=== PATIENT | female | born 1950 | race Caucasian/White ===

== ENCOUNTER 2023-07-02 09:28 | Outpatient (CLI) | payer OTHER, SELFPAY ==
--- NOTE | 2023-07-02 09:34 | MM_ITS ---
WS: [id number] BILATERAL 3D TOMOSYNTHESIS DIGITAL SCREENING MAMMOGRAPHY WITH CAD CLINICAL INFORMATION: SCREENING HISTORY: Screening mammogram. No current complaints. COMPARISON: 2021 TECHNIQUE: Bilateral CC and MLO views. FINDINGS: The breasts are composed of heterogeneous fibroglandular density tissue, which can limit the detectio n of small underlying mass lesions. No suspicious mass, asymmetry, calcifications, or architectural d istortion. No evidence of malignancy. Incidental punctate and lucent centered calcifications. Vascula r calcifications. IMPRESSION: MM/[place] [id number] BI-RADS: 2-Benign FOLLOW UP: 1 Year Follow-up Recommend return to annual screening mammography.
== END 2023-07-02 09:29 | disposition home or self-care (01) ==
LOC: RAD 09:28
PROVIDERS: PCP Nurse Practitioner; Visit Provider Nurse Practitioner
DX: Z12.31 Encounter for screening mammogram for malignant neoplasm of breast (principal)
CPT/HCPCS: 77063; 77067

== ENCOUNTER 2023-07-08 08:50 | Outpatient (CLI) | payer OTHER, SELFPAY ==
--- NOTE | 2023-07-08 08:59 | USCV_ITS ---
Marichuy Tejada Age: 72 Gender: F : 1950 Exam Date: 07/08/2023 09:18 Ordering Phys: Rima Townsend Technologist: Exam Location: [facility] [place] Indication: syncope Risk Factors: Previous Vascular Surgery: Right Brachial BP: / Left Brachial BP: / Right Left Velocity (cm/s) Spectral Plaque Velocity (cm/s) Spectral Plaque Syst/Diast Broadening Syst/Diast Broadening 90.40/ 24.30 Prox CCA 82.50 / 18.70 Homo 65.10/ 14.30 Mid CCA 59.95 / 9.85 86.00/ 19.80 Hetro Distal CCA 56.00 / 12.80 Hetro 47.80/ 9.90 Prox ICA 43.20 / 16.70 76.60/ 24.70 Mid ICA 65.80 / 13.80 77.40/ 28.80 Distal ICA 70.70 / 27.50 78.30 ECA 53.00 0.86 ICA/CCA 0.86 Antegrade Vertebral Antegrade 44.70/ 9.30 cm/s 55.00/ 12.80 cm/s Tri Subclavian Tri 52.80 69.70 FINDINGS Comparison: none available. No significant elevation of systolic or diastolic velocities. Diffuse bilateral scattered calcified plaque and intimal thickening throughout the common carotid arteries and extending through the bifurcation. Antegrade vertebral arteries. CONCLUSIONS Bilateral ICA stenosis less than 50%. Bilateral carotid atherosclerotic plaque. Dr. Nancy Moore DO (Electronically Signed) Final Date: 08 July 2023 11:16 S
== END 2023-07-08 08:51 | disposition home or self-care (01) ==
LOC: RAD 08:50
PROVIDERS: PCP Nurse Practitioner; Visit Provider Nurse Practitioner
DX: R55 Syncope and collapse (principal)
CPT/HCPCS: 93880

== ENCOUNTER 2023-07-14 14:36 | Emergency (ER) | payer OTHER, SELFPAY ==
[2023-07-14] VITALS (24 sets, daily range): BP systolic 113–168; BP diastolic 74–111; PULSE 56–79; RESP 16–29; TEMP 37.1; O2SAT 95–100; BMI 25.8
--- NOTE | 2023-07-14 15:23 | ED_ITS ---
HPI - Dizziness General: Chief Complaint: Dizziness Stated Complaint: weakness/dizzy Time Seen by Provider: 07/14/23 14:57 Source: patient Mode of arrival: ambulatory History of Present Illness: HPI Narrative: 72-year-old female presents emergency room complaining of palpitations she has been seen for this previously. She has had an outpatient work-up and recently had a Holter monitor she is still feeling palpitations. She is not on any medications for it at this time time she is having dizziness but that is been an ongoing issue as well and she has been prescribed meclizine for this denies chest pain or shortness of breath no vomiting or diarrhea no recent upper respiratory symptoms. MD elicited complaint: dizziness, lightheadedness and other (Palpitations) Onset (ago): week(s) Severity: mild Description: sense of movement and lightheadedness Exacerbating factors: nothing Relieving factors: nothing Associated symptoms: Reports no associated symptoms and palpitations; Denies change in hearing, chest pain, chills, cough, diaphoresis, ear discharge, ear pressure, fevers/chills, headache(s), malaise, nausea, nasal congestion, rash, short of breath, syncope, tinnitus, vomiting or weakness Associated neuro symptoms: Reports no associated symptoms Review of Systems Const: Denies: fever(s), chills, malaise or diaphoresis ENMT: Denies: ear discharge, change in hearing, tinnitus or nasal congestion Card: Reports: palpitations; Denies: chest pain or syncope Resp: Denies: dyspnea GI: Denies: abdominal pain, nausea or vomiting : Denies: dysuria, urinary frequency or urinary urgency Musc: Denies: neck pain or back pain Skin/Breast: Denies: rash Neuro: Denies: headache(s) Physical Exam Const: COMMON NORMALS: no acute distress GENERAL APPEARANCE: cooperative and comfortable ORIENTATION/CONSCIOUSNESS: Yes awake, Yes oriented to person, Yes oriented to place and Yes oriented to time HENMT: COMMON NORMALS: normocephalic, atraumatic and hearing grossly normal bilaterally HEAD & SCALP: normocephalic and atraumatic Resp: COMMON NORMALS: normal respiratory effort, No retractions, No use of accessory muscles and clear to auscultation bilaterally AUSCULTATION: clear to auscultation bilaterally Cardio: COMMON NORMALS: regular rate, regular rhythm and No murmurs present (Cardio) RATE: regular rate RHYTHM: regular rhythm GI: COMMON NORMALS: Soft to palpation and No hepatosplenomegaly present AUSCULTATION: Yes normoactive bowel sounds PALPATION: Yes Soft to palpation, No Tenderness to palpation present (GI), No Guarding due to palpation present (GI) and Yes No hepatosplenomegaly present Extremity: COMMON NORMALS: normal to inspection, capillary refill normal, no clubbing, cyanosis or edema, no calf tenderness and no pedal edema Neuro: SENSORIUM/ORIENTATION: Yes oriented to person, Yes oriented to place and Yes oriented to time Skin: COMMON NORMALS: no rashes or lesions noted GENERAL SKIN EXAM: no rashes or lesions noted Course Vital Signs: Vital signs: Vital Signs Temperature 98.8 F 07/14/23 14:49 Pulse Rate 73 07/14/23 16:50 Respiratory Rate 18 07/14/23 16:45 Blood Pressure 138/82 07/14/23 16:50 Pulse Oximetry 97 07/14/23 16:45 Oxygen Delivery Me thod Room Air 07/14/23 16:10 MDM - Dizziness Medical Decision Making Multiple PVCs noted. The patient is actually completely asymptomatic of them does not notice them at the time we did it. Remainder of exam unremarkable no focal neurologic deficits and will discharge patient home continue to follow-up through the cardiology clinic and primary care for dizziness and palpitations that she has previously been worked up for no acute findings at this time. Did advise patient to avoid pseudoephedrine or other stimulants as this may worsen some of her symptoms. Differential Diagnosis Likely adverse reaction to drug, orthostatic hypotension, vertebral basilar insufficiency, cerebrovascular accident, acute vestibular neuronitis and transient cerebral ischemia Medical Records I reviewed the patient's medical records. Lab Data I reviewed the patient's lab results. 07/14/23 15:12 07/14/23 15:12 Laboratory Results WBC 9.24 10^3/uL (3.29-11.43) 07/14/23 15:12 RBC 4.93 10^6/uL (3.85-5.65) 07/14/23 15:12 Hgb 13.30 g/dL (11.27-16.99) 07/14/23 15: Hct 42.0 % (36-47) 07/14/23 15:12 MCV 85.2 fl (85-98) 07/14/23 15:12 MCH 27.0 pg (27-33) 07/14/23 15:12 MCHC 31.7 g/dL (30-55) 07/14/23 15:12 RDW 15.2 % (12.1-15.1) H 07/14/23 15:12 Plt Count 355 10^3/cmm (157-399) 07/14/23 15:12 MPV 9.4 fL (7.4-10.4) 07/14/23 15:12 Neut % (Auto) 61.2 % 07/14/23 15:12 Lymph % (Auto) 23.9 % 07/14/23 15:12 [place] % (Auto) 10.5 % 07/14/23 15:12 Eos % (Auto) 2.4 % 07/14/23 15:12 Baso % (Auto) 1.6 % 07/14/23 15:12 Neut # (Auto) 5.65 10^3/uL (1.8-7.7) 07/14/23 15:12 Lymph # (Auto) 2.2 10^3/uL (0.8-4.8) 07/14/23 15:12 [place] # (Auto) 1.0 10^3/uL (0.2-0.9) H 07/14/23 15:12 Eos # (Auto) 0.2 10^3/uL (0.0-0.8) 07/14/23 15:12 Baso # (Auto) 0.2 10^3/uL (0.0-0.1) H 07/14/23 15:12 Nucleated RBC % (auto) 0 % 07/14/23 15:12 Nucleated RBCs # 0.0 /100WBC 07/14/23 15:12 Sodium 138 mmol/L (136-145) 07/14/23 15:12 Potassium 4.0 mmol/L (3.5-5.1) 07/14/23 15:12 Chloride 103 mmol/L (98-107) 07/14/23 15:12 Carbon Dioxide 22 mmol/L (22-29) 07/14/23 15:12 Anion Gap 17.0 (5-19) 07/14/23 15:12 BUN 9 mg/dL (8-23) 07/14/23 15:12 Creatinine 0.6 mg/dL (0.5-0.9) 07/14/23 15:12 GFR Calculation 98.8 mL/min (90-130) 07/14/23 15:12 Glucose 100 mg/dL (65-115) 07/14/23 15:12 Calculated Osmolality 285 mOsm/kg (285-295) 07/14/23 15:12 Calcium 10.1 mg/dL (8.5-10.5) 07/14/23 15:12 Total Bilirubin 0.5 mg/dL (0.15-1.2) 07/14/23 15:12 AST 15 U/L (0-32) 07/14/23 15:12 ALT 9 U/L (0-33) 07/14/23 15:12 Alkaline Phosphatase 94 U/L (35-105) 07/14/23 15:12 Troponin T Baseline < 6 ng/L (0-10) 07/14/23 15:12 Total Protein 7.2 g/dL (6.6-8.7) 07/14/23 15:12 Albumin 4.4 g/dL (3.5-5.2) 07/14/23 15:12 Globulin 2.8 g/dL (1.3-4.6) 07/14/23 15:12 No radiology studies performed this visit Discharge Plan Discharge Patient Disposition: Home Clinical Impression: Frequent PVCs, Dizziness Condition: Stable Prescriptions: Discontinued pseudoephedrine HCl [Pseudoephedrine Plus] 60 mg Tablet 60 mg PO Q6H PRN (Reason: Congestion) No Action cyclobenzaprine 10 mg Tablet 10 mg PO BID PRN (Reason: Spasms) alendronate 70 mg Tablet 70 mg PO Q7D indomethacin 25 mg Capsule 25 mg PO BID Rx Instructions: administer with food or milk acetaminophen 325 mg Tablet 325 mg PO QID PRN (Reason: Pain) ropinirole 1 mg Tablet 1 mg PO BID Aspir-81 81 mg Tablet,Delayed Release (Dr/Ec) 81 mg PO DAILY meclizine 25 mg Tablet 25 mg PO TID PRN (Reason: Dizziness) montelukast 10 mg Tablet 10 mg PO QPM Vitamin B-6 100 mg Tablet 50 mg PO DAILY Flonase 50 mcg/actuation [place],Suspension 1 spray INTRANASAL DAILY Rx Instructions: administer into each nostril Vitamin D3 25 mcg (1,000 unit) Tablet 25 mcg PO DAILY diclofenac sodium 1 % Gel 4 g TOPICAL QID PRN (Reason: osteoarthritis) Rx Instructions: apply to single knee, ankle, foot; for foot includes sole/toes/top of foot Discharge Orders: Discharge ED (Routine); Ordered 07/14/23 Ordered By: Mandeep Atkinson Referrals: Rima Townsend FNP [Primary Care Provider] - Discharge Diet: Usual diet Discharge Activity: Increase activity as tolerated Patient Instructions: Opioid Safety, Pain Management Activity Restrictions/Additional Instructions: Thank you for choosing [facility] for your healthcare needs today. Please realize this is an emergency room and that we are providing you with a medical screening exam and this may not be complete and all inclusive of all the testing and or work up that you may need to determine your ailment or severity of your illness. It is very important that you follow up as instructed or that you return to the Emergency Department should you have concerns or if your condition changes or worsens in any way. Follow-up with cardiology as previously scheduled recommend you avoid pseudoephedrine or any other decongestants or stimulants. These medications will increase the frequency of the irregular heartbeats. 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
--- NOTE | 2023-07-14 15:23 | ECG_ITS ---
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 Measurements Intervals [place] Rate: 66 P: 29 [place]: 164 QRS: 41 QRSD: 93 T: 61 QT: 424 QTc: 446 Interpretive Statements SINUS RHYTHM No previous ECG available for comparison Electronically Signed On 07-16-2023 14:08:23 RECREATION ATTENDANT by Patrice Taylor M.D. [id number]
[2023-07-14 15:28] LABS: Basophils # 0.2 10^3/uL (0.0-0.1); Basophils % 1.6 %; Eosinophils # 0.2 10^3/uL (0.0-0.8); Eosinophils % 2.4 %; Lymphocytes # 2.2 10^3/uL (0.8-4.8); Lymphocytes % 23.9 %; Mean Corpuscular HGB Conc 31.7 g/dL (30-55); Mean Corpuscular Volume 85.2 fl (85-98); Mean Platelet Volume 9.4 fL (7.4-10.4); Monocytes % 10.5 %; Neutrophils # 5.65 10^3/uL (1.8-7.7); Neutrophils % 61.2 %; Nucleated Red Blood Cells % 0 %; Platelet Count 355 10^3/cmm (157-399); Red Blood Count 4.93 10^6/uL (3.85-5.65); Red Cell Distribution Width 15.2 % (12.1-15.1); White Blood Count 9.24 10^3/uL (3.29-11.43)
[2023-07-14 15:41] LABS: Troponin(5th) Baseline < 6 ng/L (0-10)
[2023-07-14 15:42] LABS: Alanine Aminotransferase 9 U/L (0-33); Albumin Level 4.4 g/dL (3.5-5.2); Alkaline Phosphatase 94 U/L (35-105); Aspartate Amino Transferase 15 U/L (0-32); Blood Urea Nitrogen 9 mg/dL (8-23); Calcium 10.1 mg/dL (8.5-10.5); Carbon Dioxide 22 mmol/L (22-29); Chloride 103 mmol/L (98-107); Globulin 2.8 g/dL (1.3-4.6); Glomerular Filtration Rate 98.8 mL/min (90-130); Glucose 100 mg/dL (65-115); Osmolality Calculated 285 mOsm/kg (285-295); Sodium 138 mmol/L (136-145); Total Bilirubin 0.5 mg/dL (0.15-1.2); Total Protein 7.2 g/dL (6.6-8.7)
== END 2023-07-14 16:55 | disposition home or self-care (01) ==
PROVIDERS: Emergency Provider Family Medicine; PCP Nurse Practitioner
DX: R42 Dizziness and giddiness (principal); I49.3 Ventricular premature depolarization; Z79.82 Long term (current) use of aspirin
CPT/HCPCS: 36415; 80053; 84484; 85025; 93005; 99284

== ENCOUNTER 2023-07-30 06:00 | Outpatient (RCR) | payer OTHER, SELFPAY | END 2023-08-29 23:59 | disposition home or self-care (01) | LOC: SPT 06:00 | PROVIDERS: PCP Nurse Practitioner; Visit Provider Nurse Practitioner | DX: M25.512 Pain in left shoulder (principal) | CPT/HCPCS: 97110; 97140; 97161 ==

== ENCOUNTER → 2023-08-05 10:09 | Outpatient (BNVA) | payer OTHER, SELFPAY | PROVIDERS: PCP Nurse Practitioner; Referring Provider Nurse Practitioner; Visit Provider Internal Medicine Cardiovascular Disease | DX: R55 Syncope and collapse (principal) | CPT/HCPCS: 99203 ==

== ENCOUNTER 2023-08-11 09:54 | Outpatient (CLI) | payer OTHER, SELFPAY ==
--- NOTE | 2023-08-11 10:15 | USCV_ITS ---
Marichuy Tejada Age: 73 Gender: F : 1950 Exam Date: 08/11/2023 10:25 Ordering Phys: Patrice Taylor MD (omcnledy/january) Technologist: JUAN PABLO Exam Location: [facility] – [place] Indication: syncope BP: 136 / 82 HR: 73 Rhythm: Sinus Technical Quality: Adequate MEASUREMENTS (Male / Female) Normal Values 2D ECHO LVOT Diameter 2.0 cm LV Ejection Fraction MOD 2C 57.3 % LV Ejection Fraction 2C AL 56.4 % LA Diameter 3.0 cm LA Width 3.5 cm LA Height 3.8 cm RA Width 2.8 cm RA Height 4.5 cm Aorta at Sinotubular Diameter 2.2 cm IVC Diameter 1.6 cm M-MODE Aortic Annulus Diameter 2.9 cm LA Ao Ratio MM 0.9 MV E Point Septal Separation 0.6 cm DOPPLER AV Peak Velocity 135.0 cm/s LVOT Peak Velocity 98.0 cm/s AV Area Cont Eq vti 2.3 cm squared AV Area Cont Eq pk 2.3 cm squared MV Peak Velocity 113.0 cm/s MV Area PHT 2.7 cm squared Mitral E to A Ratio 0.5 MV E' Velocity 28.5 cm/s Mitral E to MV E' Ratio 6.8 Mitral E to LV E' Lateral Ratio 7.2 Mitral E to LV E' Septal Ratio 6.5 TR Peak Velocity 162.2 cm/s TR Peak Gradient 10.5 mmHg TR Mean Velocity 135.1 cm/s TR Mean Gradient 7.6 mmHg TR Velocity Time Integral 37.7 cm TV Peak E Velocity 44.0 cm/s Right Atrial Pressure 3.0 mmHg Pulmonary Artery Systolic Pressu 13.5 mmHg PV Peak Velocity 106.0 cm/s RV Acceleration Time 0.1 s RV Ejection Time 0.3 s RV AcT/ET 0.4 FINDINGS Left Ventricle Normal left ventricular size, systolic function and wall thickness, with no regional wall motion abnormalities. Grade I/IV diastolic dysfunction (abnormal relaxation filling pattern), normal to mildly elevated filling pressures. Left ventricular ejection fraction is estimated at 60 %. Right Ventricle Normal right ventricular size and systolic function. Normal right ventricular systolic pressure. Right Atrium The right atrium is normal in size. Left Atrium The left atrium is normal in size. Mitral Valve Structurally normal mitral valve without significant stenosis or prolapse. There is no mitral regurgitation. Aortic Valve Structurally normal aortic valve without significant sclerosis or stenosis. There is no aortic regurgitation. Tricuspid Valve Structurally normal tricuspid valve without significant stenosis or regurgitation. Pulmonary artery systolic pressure is normal. Pulmonic Valve Pulmonic valve not well visualized. Pericardium Normal pericardium without effusion. Aorta Normal ascending aorta dimension. IVC The inferior vena cava appears normal. CONCLUSIONS Normal left ventricular size, systolic function and wall thickness, with no regional wall motion abnormalities. Grade I/IV diastolic dysfunction (abnormal relaxation filling pattern), normal to mildly elevated filling pressures. Left ventricular ejection fraction is estimated at 60 %. There are no prior echocardiogram studies to compare. Dr. Patrice Taylor MD (Electronically Signed) Final Date: 12 August 2023 10:29 S
== END 2023-08-11 09:55 | disposition home or self-care (01) ==
LOC: RAD 09:54
PROVIDERS: PCP Nurse Practitioner; Visit Provider Internal Medicine Cardiovascular Disease
DX: R55 Syncope and collapse (principal); I51.89 Other ill-defined heart diseases
CPT/HCPCS: 93306

== ENCOUNTER 2023-08-30 06:00 | Outpatient (RCR) | payer OTHER, SELFPAY | END 2023-09-29 23:59 | disposition home or self-care (01) | LOC: SPT 06:00 | PROVIDERS: PCP Nurse Practitioner; Visit Provider Nurse Practitioner | DX: M25.512 Pain in left shoulder (principal) | CPT/HCPCS: 97110; 97140 ==

== ENCOUNTER → 2023-09-23 14:59 | Outpatient (BNVA) | payer OTHER, SELFPAY | PROVIDERS: PCP Nurse Practitioner; Visit Provider Nurse Practitioner Family | DX: L57.0 Actinic keratosis; L82.1 Other seborrheic keratosis; L82.0 Inflamed seborrheic keratosis; S60.921A Unspecified superficial injury of right hand, initial encounter; L57.8 Other skin changes due to chronic exposure to nonionizing radiation; L85.3 Xerosis cutis; D22.5 Melanocytic nevi of trunk; D48.5 Neoplasm of uncertain behavior of skin; Z80.8 Family history of malignant neoplasm of other organs or systems; X58.XXXA Exposure to other specified factors, initial encounter | CPT/HCPCS: 11102; 17000; 17110; 99203 ==

== ENCOUNTER 2023-09-30 06:00 | Outpatient (RCR) | payer OTHER, SELFPAY | END 2023-10-28 23:59 | disposition home or self-care (01) | LOC: SPT 06:00 | PROVIDERS: PCP Nurse Practitioner; Visit Provider Nurse Practitioner | DX: M25.512 Pain in left shoulder (principal) | CPT/HCPCS: 97110 ==

== ENCOUNTER 2023-10-29 06:00 | Outpatient (RCR) | payer OTHER, SELFPAY | END 2023-11-22 23:59 | disposition home or self-care (01) | LOC: SPT 06:00 | PROVIDERS: PCP Nurse Practitioner; Visit Provider Nurse Practitioner | DX: M25.512 Pain in left shoulder (principal) | CPT/HCPCS: 97110 ==

== ENCOUNTER 2024-04-05 14:20 | Outpatient (CLI) | payer OTHER, SELFPAY ==
--- NOTE | 2024-04-05 14:22 | CT_ITS ---
WS: [id number] CT chest w con* [id number] HISTORY: HX OF LUNG NODULE TECHNIQUE: Axial imaging performed through the thorax. Coronal and sagittal reformats are submitted. All CT scans at [facility] use at least one of these dose optimization techniques: automated exposure control; mA and/or kV adjustment per patient size (includes targeted exams where dose is mat ched to clinical indication); or iterative reconstruction. CONTRAST: Omnipaque 350; 100 mL IV. DLP: 281.35 mGy.cm COMPARISON: None available. Lungs and central airway: Mild pulmonary hyperexpansion. There are a few small pulmonary cysts in the upper lung balderrama which may be paraseptal emphysematous changes. No pulmonary mass, pneumonia or nod ule. No endobronchial lesions. Pleura: Normal. No pleural effusion. Heart and pericardium: Normal size heart with no pericardial effusion. Mediastinum and luz maria: No adenopathy. Vessels: Mild atherosclerosis aorta. Normal size pulmonary artery. LEFT vertebral artery arises from the arch. Chest wall and lower neck: No soft tissue masses. Upper abdomen: No adrenal mass. Visualized liver is negative. Osseous structures: Mild increase in thoracic kyphosis. Moderate thoracic spondylosis. No destructive bone lesion. CT/CT chest w con* [id number] IMPRESSION: 1. No pulmonary mass or nodule identified. 2. Mild atherosclerosis aorta. 3. Mild pulmonary hyperexpansion.
[2024-04-05 15:10] LABS: Blood Urea Nitrogen 9 mg/dL (8-23)
[2024-04-05] MEDS: iohexol 350 mg/mL 500 mL Btl (per mL) IV (15:14)
== END 2024-04-05 14:21 | disposition home or self-care (01) ==
LOC: RAD 14:20
PROVIDERS: Radiology Neuroradiology; PCP Nurse Practitioner; Visit Provider Nurse Practitioner
DX: R91.1 Solitary pulmonary nodule (principal); I70.0 Atherosclerosis of aorta; J98.4 Other disorders of lung; M40.294 Other kyphosis, thoracic region; M47.894 Other spondylosis, thoracic region
CPT/HCPCS: 71260; 82565; 84520; Q9967

== ENCOUNTER 2024-05-06 07:22 | Emergency (ER) | payer OTHER, SELFPAY ==
[2024-05-06 07:29] VITALS: BP 128/87; PULSE 66; RESP 14; TEMP 36.5; O2SAT 92; BMI 27.3
--- NOTE | 2024-05-06 07:34 | ECG_ITS ---
[facility] Test Date: 2024-05-06 Pat Name: Marichuy Tejada Department: Room: Gender: Female Outsewer: : 1950 Requested By: Mandeep Packer Order Number: [id number] Reading MD: MIHAI LOVE Measurements Intervals Egan Rate: 64 P: 26 AL: 162 QRS: 4 QRSD: 90 T: 61 QT: 418 QTc: 433 Interpretive Statements SINUS RHYTHM POSSIBLE LEFT ATRIAL ENLARGEMENT [-0.1mV P-WAVE IN V1/V2] Compared to ECG 07/14/2023 15:23:29 No significant changes Electronically Signed On 05-07-2024 18:52:22 CDT by MIHAI LOVE [email or web address] ([email or web address] [id number] f
--- NOTE | 2024-05-06 07:34 | XRR_ITS ---
PROCEDURE INFORMATION: Exam: XR Chest Exam date and time: 05/06/2024 7:46 AM Age: 73 years old Clinical indication: Cough and dyspnea; Additional info: Dyspnea/cough TECHNIQUE: Imaging protocol: Radiologic exam of the chest. Views: 1 view. COMPARISON: CT chest w con* [id number] 04/05/2024 3:10 PM FINDINGS: Lungs: Unremarkable. No consolidation. Pleural spaces: Unremarkable. No pleural effusion. No pneumothorax. Heart/Mediastinum: Unremarkable. No cardiomegaly. Bones/joints: Unremarkable. XR/XR chest 1V portable [id number] IMPRESSION: No acute findings.
[2024-05-06 07:52] LABS: Basophils # 0.1 10^3/uL (0.0-0.1); Basophils % 1.5 %; Eosinophils # 0.2 10^3/uL (0.0-0.8); Eosinophils % 3.9 %; Hematocrit 44.9 % (36-47); Lymphocytes # 1.3 10^3/uL (0.8-4.8); Lymphocytes % 27.4 %; Mean Corpuscular HGB Conc 33.6 g/dL (30-55); Mean Corpuscular Hemoglobin 31.1 pg (27-33); Mean Corpuscular Volume 92.6 fl (85-98); Monocytes # 0.8 10^3/uL (0.2-0.9); Monocytes % 17.4 %; Neutrophils # 2.35 10^3/uL (1.8-7.7); Neutrophils % 48.8 %; Nucleated Red Blood Cells % 0 %; Platelet Count 191 10^3/cmm (157-399); Red Blood Count 4.85 10^6/uL (3.85-5.65); Red Cell Distribution Width 12.8 % (12.1-15.1); White Blood Count 4.82 10^3/uL (3.29-11.43)
[2024-05-06 08:13] LABS: Alanine Aminotransferase 11 U/L (0-33); Albumin Level 4.2 g/dL (3.5-5.2); Alkaline Phosphatase 80 U/L (35-105); Anion Gap 13.8 (5-19); Aspartate Amino Transferase 17 U/L (0-32); Blood Urea Nitrogen 9 mg/dL (8-23); Calcium 9.3 mg/dL (8.5-10.5); Carbon Dioxide 25 mmol/L (22-29); Chloride 106 mmol/L (98-107); Globulin 2.5 g/dL (1.3-4.6); Glucose 108 mg/dL (65-115); Osmolality Calculated 291 mOsm/kg (285-295); Potassium 3.8 mmol/L (3.5-5.1); Sodium 141 mmol/L (136-145); Total Bilirubin 0.4 mg/dL (0.15-1.2); Total Protein 6.7 g/dL (6.6-8.7)
--- NOTE | 2024-05-06 08:17 | ED_ITS ---
HPI - Weakness 2 General: Chief complaint: Weakness Stated complaint: body pain/NV Time Seen by Provider: 05/06/24 07:32 History of Present Illness: 73-year-old female presents to the emerg ency room with complaint of what she describes as generalized body pain. Talk to removal to get her to focus a little bit more. Mid and lower back pain that radiates into her upper thighs. She denies any weakness in the lower extremities. She does relate she has chronic pain and this seems worse the last couple of days. This episode today was enough to make her nauseous and mildly dizzy. She denies any fever sweats or chills she has had some cough that has been nonproductive. No headache no diarrhea no chest pain Associated symptoms: Denies chest pain, chills, dysuria or fever(s) Review of Systems 2 Const: Denies: fever(s) or chills Card: Denies: chest pain Resp: Denies: dyspnea GI: Denies: abdominal pain : Denies: dysuria, urinary frequency or urinary urgency Musc: Reports: back pain and extremity pain; Denies: neck pain Skin/Breast: Denies: rash PFSH ED 2 PFSH: Medical History Syncope Family History Father No problems noted. Social History Smoking and tobacco/nicotine status: former use of tobacco/nicotine Alcohol intake: current Alcohol intake frequency: few times a month Substance/Drug Use: never Physical Exam 2 Const: COMMON NORMALS: no acute distress GENERAL APPEARANCE: cooperative and comfortable ORIENTATION/CONSCIOUSNESS: Yes awake, Yes oriented to person, Yes oriented to place and Yes oriented to time HENMT: COMMON NORMALS: normocephalic, atraumatic and hearing grossly normal bilaterally HEAD & SCALP: normocephalic and atraumatic Resp: COMMON NORMALS: normal respiratory effort, No retractions, No use of accessory muscles and clear to auscultation bilaterally AUSCULTATION: clear to auscultation bilaterally Cardio: COMMON NORMALS: regular rate, regular rhythm and No murmurs present (Cardio) RATE: regular rate RHYTHM: regular rhythm GI: COMMON NORMALS: Soft to palpation and No hepatosplenomegaly present A USCULTATION: Yes normoactive bowel sounds PALPATION: Yes Soft to palpation, No Tenderness to palpation present (GI), No Guarding due to palpation present (GI) and Yes No hepatosplenomegaly present Extremity: COMMON NORMALS: normal to inspection, capillary refill normal, no clubbing, cyanosis or edema, no calf tenderness and no pedal edema Neuro: SENSORIUM/ORIENTATION: Yes oriented to person, Yes oriented to place and Yes oriented to time Skin: COMMON NORMALS: no rashes or lesions noted GENERAL SKIN EXAM: no rashes or lesions noted Course 2 Vital Signs: Vital signs: Vital Signs Temperature 97.7 F 05/06/24 07:29 Pulse Rate 63 05/06/24 10:32 Respiratory Rate 21 H 05/06/24 10:32 Blood Pressure 124/78 05/06/24 10:32 Pulse Oximetry 97 05/06/24 10:32 Oxygen Delivery Me thod Room Air 05/06/24 07:29 MDM - Weakness Medical Decision Making Labs and imaging reviewed. CMP normal no leukocytosis. No cystitis. Flu coronavirus RSV are all negative. Vital signs otherwise unremarkable. She is not having any specific chest pain associated with this. Initial EKG showed normal sinus rhythm without significant changes. Medical Records I reviewed the patient's medical records. Lab Data I reviewed the patient's lab results. 05/06/24 07:45 05/06/24 07:45 Radiology Impressions Chest X-Ray 05/06/24 07:34 IMPRESSION: No acute findings. Laboratory Results WBC 4.82 10^3/uL (3.29-11.43) 05/06/24 07:45 RBC 4.85 10^6/uL (3.85-5.65) 05/06/24 07:45 Hgb 15.10 g/dL (11.27-16.99) 05/06/24 07:45 Hct 44.9 % (36-47) 05/06/24 07:45 MCV 92.6 fl (85-98) 05/06/24 07:45 MCH 31.1 pg (27-33) 05/06/24 07:45 MCHC 33.6 g/dL (30-55) 05/06/24 07:45 RDW 12.8 % (12.1-15.1) 05/06/24 07:45 Plt Count 191 10^3/cmm (157-399) 05/06/24 07:45 MPV 9.0 fL (7.4-10.4) 05/06/24 07:45 Neut % (Auto) 48.8 % 05/06/24 07:45 Lymph % (Auto) 27.4 % 05/06/24 07:45 Kendall % (Auto) 17.4 % 05/06/24 07:45 Eos % (Auto) 3.9 % 05/06/24 07:45 Baso % (Auto) 1.5 % 05/06/24 07:45 Neut # (Auto) 2.35 10^3/uL (1.8-7.7) 05/06/24 07:45 Lymph # (Auto) 1.3 10^3/uL (0.8-4.8) 05/06/24 07:45 Kendall # (Auto) 0.8 10^3/uL (0.2-0.9) 05/06/24 07:45 Eos # (Auto) 0.2 10^3/uL (0.0-0.8) 05/06/24 07:45 Baso # (Auto) 0.1 10^3/uL (0.0-0.1) 05/06/24 07:45 Nucleated RBC % (auto) 0 % 05/06/24 07:45 Nucleated RBCs # 0.0 /100WBC 05/06/24 07:45 Sodium 141 mmol/L (136-145) 05/06/24 07:45 Potassium 3.8 mmol/L (3.5-5.1) 05/06/24 07:45 Chloride 106 mmol/L (98-107) 05/06/24 07:45 Carbon Dioxide 25 mmol/L (22-29) 05/06/24 07:45 Anion Gap 13.8 (5-19) 05/06/24 07:45 BUN 9 mg/dL (8-23) 05/06/24 07:45 Creatinine 0.5 mg/dL (0.5-0.9) 05/06/24 07:45 GFR Calculation Not Reportable 05/06/24 07:45 Glucose 108 mg/dL (65-115) 05/06/24 07:45 Calculated Osmolality 291 mOsm/kg (285-295) 05/06/24 07:45 Calcium 9.3 mg/dL (8.5-10.5) 05/06/24 07:45 Total Bilirubin 0.4 mg/dL (0.15-1.2) 05/06/24 07:45 AST 17 U/L (0-32) 05/06/24 07:45 ALT 11 U/L (0-33) 05/06/24 07:45 Alkaline Phosphatase 80 U/L (35-105) 05/06/24 07:45 Total Protein 6.7 g/dL (6.6-8.7) 05/06/24 07:45 Albumin 4.2 g/dL (3.5-5.2) 05/06/24 07:45 Globulin 2.5 g/dL (1.3-4.6) 05/06/24 07:45 Urine Color Yellow (Yellow) 05/06/24 09:10 Urine Appearance Clear (CLEAR) 05/06/24 09:10 Urine pH 5.5 (5-7) 05/06/24 09:10 Ur Specific [place] 1.021 (1.005-1.030) 05/06/24 09:10 Urine Protein Negative (Negative) 05/06/24 09:10 Urine Glucose (UA) Negative (Normal) 05/06/24 09:10 Urine Ketones Trace (Negative) 05/06/24 09:10 Urine Blood Negative (Negative) 05/06/24 09:10 Urine Nitrate Negative (Negative) 05/06/24 09:10 Urine Bilirubin Negative (Negative) 05/06/24 09:10 Urine Urobilinogen 1.0 mg/dL (Negative) 05/06/24 09:10 Ur Leukocyte Esterase Negative (Negative) 05/06/24 09:10 Urine RBC 0-2 /hpf (0-2) 05/06/24 09:10 Urine WBC 0-5 /hpf (0-5) 05/06/24 09:10 Ur Squamous Epith Cells 0-5 /hpf (0-5) 05/06/24 09:10 Amorphous Sediment Not Reportable 05/06/24 09:10 Urine Bacteria None seen /hpf (NONE) 05/06/24 09:10 Hyaline Casts 0.81 /lpf 05/06/24 09:10 Coronavirus (PCR) Negative (Negative) 05/06/24 07:45 Influenza A (PCR) Negative (Negative) 05/06/24 07:45 Influenza Type B (PCR) Negative (Negative) 05/06/24 07:45 RSV (PCR) Negative (Negative) 05/06/24 07:45 All radiology interpretation(s) finalized by discharge EKG Data EKG 1: Interpretation: Normal sinus rhythm rate of [address] changes noted MT interval 162 QTc 433. Normal axis. Discharge Plan Discharge Patient Disposition: Home Clinical Impression: Back pain without radiation Condition: Stable Prescriptions: New Medrol (Kurt) 4 mg tablets,dose pack See Rx Instructions .ROUTE .COMPLEX Qty: 21 0RF Rx Instructions: orally per package directions No Action cyclobenzaprine 10 mg Tablet 10 mg PO BID PRN (Reason: Spasms) alendronate 70 mg Tablet 70 mg PO Q7D indomethacin 25 mg Capsule 25 mg PO BID Rx Instructions: administer with food or milk acetaminophen 325 mg Tablet 325 mg PO QID PRN (Reason: Pain) ropinirole 1 mg Tablet 1 mg PO BID Aspir-81 81 mg Tablet,Delayed Release (Dr/Ec) 81 mg PO DAILY meclizine 25 mg Tablet 25 mg PO TID PRN (Reason: Dizziness) montelukast 10 mg Tablet 10 mg PO QPM Vitamin B-6 100 mg Tablet 50 mg PO DAILY Vitamin D3 25 mcg (1,000 unit) Tablet 25 mcg PO DAILY diclofenac sodium 1 % Gel 4 g TOPICAL QID PRN (Reason: osteoarthritis) Rx Instructions: apply to single knee, ankle, foot; for foot includes sole/toes/top of foot Discharge Orders: Discharge ED (Routine); Ordered 05/06/24 Ordered By: Mandeep Atkinson Referrals: Rima Townsend FNP [Primary Care Provider] - Discharge Diet: Usual diet Discharge Activity: Increase activity as tolerated Patient Instructions: Opioid Safety, Pain Management Activity Restrictions/Additional Instructions: Thank you for choosing [facility] for your healthcare needs today. It is very important that you follow up as instructed or that you return to the Emergency Department should you have concerns or if your condition changes or worsens in any way. Initial emergency room complaining of generalized pain and aches. Flu COVID and RSV were negative EKG was normal all of your lab work done today was normal as well. Your exam did not show any signs of stroke or nerve impingement at this time. Continue your current medications will have you take a course of steroids tapering over a week. 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 Fwd Related Data Home Medications Medication Instructions Recorded Confirmed acetaminophen 325 mg tablet 325 mg PO QID PRN Pain 07/14/23 08/05/23 alendronate 70 mg tablet 70 mg PO Q7D 07/14/23 08/05/23 aspirin 81 mg tablet,delayed 81 mg PO DAILY 07/14/23 08/05/23 release cholecalciferol (vitamin D3) 25 25 mcg PO DAILY 07/14/23 08/05/23 mcg (1,000 unit) tablet (Vitamin D3) cyclobenzaprine 10 mg tablet 10 mg PO BID PRN Spasms 07/14/23 08/05/23 diclofenac sodium 1 % topical gel 4 g topical QID PRN osteoarthritis 07/14/23 08/05/23 indomethacin 25 mg capsule 25 mg PO BID 07/14/23 08/05/23 meclizine 25 mg tablet 25 mg PO TID PRN Dizziness 07/14/23 08/05/23 montelukast 10 mg tablet 10 mg PO QPM 07/14/23 08/05/23 pyridoxine (vitamin B6) 100 mg 50 mg PO DAILY 07/14/23 08/05/23 tablet (Vitamin B-6) ropinirole 1 mg tablet 1 mg PO BID 07/14/23 08/05/23 Previous Rx's Medication Instructions Recorded methylprednisolone 4 mg tablets in See Rx Instructions PO .COMPLEX 05/06/24 a dose pack (Medrol (Kurt)) #21 ea Allergies Allergy/AdvReac Type Severity Reaction Status Date / Time albuterol Allergy ADR/ALGY-Pa Verified 05/06/24 07:39 lpitations oxycodone Allergy ADR-Itching Verified 05/06/24 07:39
[2024-05-06] MEDS: ketorolac 30 mg/mL INJ IVP (08:25)
[2024-05-06 08:38] VITALS: BP 123/86; PULSE 66; RESP 17; O2SAT 90
[2024-05-06 09:05] LABS: Covid PCR NEGATIVE (Negative); Influenza A NEGATIVE (Negative); Influenza B NEGATIVE (Negative); Respiratory Syncytial Virus Ce NEGATIVE (Negative)
[2024-05-06 09:26] LABS: Charge for UA Resulting for Rev
[2024-05-06 09:29] LABS: Bilirubin Urine Negative (Negative); Blood Urine Negative (Negative); Glucose Urine UA Negative (Normal); Ketones Urine Trace (Negative); Leukocyte Esterase Urine Negative (Negative); Nitrate Urine Negative (Negative); Protein Urine Negative (Negative); Specific Gravity, Urine 1.021 (1.005-1.030); Urine Appearance Clear (CLEAR); Urine Color Yellow (Yellow); pH Urine 5.5 (5-7)
[2024-05-06 09:34] LABS: Bacteria Urine None Seen /hpf; Hyaline Casts Urine 0.81 /lpf; RBC Urine 0-2 /hpf (0-2); Squamous Epithelial Cell Urine 0-5 /hpf (0-5); WBC Urine 0-5 /hpf (0-5)
[2024-05-06 10:32] VITALS: BP 124/78; PULSE 63; RESP 21; O2SAT 97
== END 2024-05-06 10:30 | disposition home or self-care (01) ==
PROVIDERS: Emergency Provider Family Medicine; PCP Nurse Practitioner
DX: M54.50 Low back pain, unspecified (principal); Z79.82 Long term (current) use of aspirin; Z87.891 Personal history of nicotine dependence; M54.6 Pain in thoracic spine
CPT/HCPCS: 0241U; 71045; 80053; 81003; 81015; 85025; 93005; 96374; 99285; J1885

== ENCOUNTER 2024-05-30 15:15 | Outpatient (CLI) | payer OTHER, SELFPAY ==
--- NOTE | 2024-05-30 15:19 | MR_ITS ---
WS: [id number] MRI HEAD WITH CONTRAST TECHNIQUE: Sagittal T1, T2 axial, T2 axial FLAIR, axial susceptibility weighted imaging, axial diffus ion weighted images, and coronal T2 images were obtained. Pre and post-T1 axial and post T1 coronal i mages. ADC and FSPGR images. CLINICAL INFORMATION: NEW ONSET OF TREMORS COMPARISON: None. FINDINGS: No evidence of restricted diffusion to suggest acute ischemia. Ventricular system and basal cisterns are patent. Mild small vessel changes. Moderate parenchymal volume loss. Normal posterior fossa. Norm al vascular flow voids at the skull base. No extra-axial fluid collections. No evidence of mass or ma ss effect. Paranasal sinuses and mastoid air cells are well aerated. Normal posterior nasopharynx. No hemosiderin on the susceptibly weighted images. Normal optic chiasm and pituitary infundibulum. Mild symmetric atrophy temporal lobes and hippocampal formations. Normal optic chiasm and pituitary infundibulum. No abnormal gadolinium enhancement. Norm al dural venous sinuses. MR/MR head wo/w con [id number] IMPRESSION: 1. No evidence of restricted diffusion to suggest acute ischemia. 2. Mild small vessel changes with moderate parenchymal volume loss. 3. Mild symmetric atrophy temporal lobes and hippocampal formations. 4. No abnormal gadolinium enhancement. 5. No hemosiderin on the susceptibly weighted images. 6. No other acute findings.
[2024-05-30] MEDS: gadobenate dimeglumine 20 mL vial IV (15:57)
== END 2024-05-30 15:16 | disposition home or self-care (01) ==
PROVIDERS: PCP Nurse Practitioner; Visit Provider Nurse Practitioner
DX: G31.89 Other specified degenerative diseases of nervous system (principal)
CPT/HCPCS: 70553

== ENCOUNTER → 2024-11-03 10:25 | Outpatient (BNVA) | payer OTHER, SELFPAY | PROVIDERS: PCP Nurse Practitioner; Visit Provider Nurse Practitioner Family | DX: L57.8 Other skin changes due to chronic exposure to nonionizing radiation (principal); L85.3 Xerosis cutis; D22.5 Melanocytic nevi of trunk; L81.4 Other melanin hyperpigmentation; L82.1 Other seborrheic keratosis; Z80.8 Family history of malignant neoplasm of other organs or systems; L57.0 Actinic keratosis | CPT/HCPCS: 17000; 99213 ==

== ENCOUNTER → 2024-11-13 14:00 | Outpatient (BNVA) | payer OTHER, SELFPAY | PROVIDERS: PCP Nurse Practitioner; Visit Provider Orthopaedic Surgery | DX: M19.012 Primary osteoarthritis, left shoulder (principal); M25.512 Pain in left shoulder | CPT/HCPCS: 73030; 99204 ==

== ENCOUNTER 2024-11-17 10:47 | Outpatient (CLI) | payer OTHER, SELFPAY ==
--- NOTE | 2024-11-17 10:50 | MRR_ITS ---
PROCEDURE INFORMATION: Exam: MR Left Upper Extremity Joint Without Contrast; Shoulder Exam date and time: 11/17/2024 10:59 AM Age: 74 years old Clinical indication: Left; Lt shoulder pain. Told prior tear by [facility] per PT. Was in PT got better. Re-injured moving furniture. TECHNIQUE: Imaging protocol: Magnetic resonance imaging of the left upper extremity without contrast. Exam focused on the shoulder. COMPARISON: CR XR shoulder LT min 2V* [id number] 11/13/2024 2:01 PM FINDINGS: Bones/joints: Acromioclavicular arthrosis. Near-complete loss of the glenoid chondral surface. Mild glenohumeral joint effusion. Rotator interval: Decreased amount of fat within the rotator interval on the sagittal series with what appears to be edema. Questionable capsular thickening and pericapsular edema. Glenoid labrum: Diffusely globular and heterogeneous appearing labrum without fluid bright signal to suggest acute tear. Bursae: Elevated amount of fluid within the subacromial subdeltoid bursa. Supraspinatus tendon: Partial-thickness, partial width tear of the supraspinatus tendon as it inserts upon the humeral head, the tear appears to be near-complete, however no significant retraction. Infraspinatus tendon: Unremarkable. No evidence of tear. Subscapularis tendon: Unremarkable. No evidence of tear. Teres minor tendon: Unremarkable. No evidence of tear. Tendon of biceps brachii: Intra-articular biceps tendinosis. Glenohumeral ligaments: Unremarkable. Soft tissues: Perhaps mild pericapsular edema. MR/MR shoulder LT wo con* [id number] IMPRESSION: 1. Near-complete tear of the supraspinatus tendon at the humeral insertion. No significant retraction, mild extension into the interstitial bands. 2. Diffusely macerated labrum without fluid bright signal to suggest acute tear. 3. Severe acromioclavicular and glenohumeral arthritis with superimposed glenohumeral effusion. 4. Capsular findings suggest adhesive capsulitis, correlate clinically. 5. Intra-articular biceps tendinosis without tear.
== END 2024-11-17 10:48 | disposition home or self-care (01) ==
LOC: RAD 10:47
PROVIDERS: PCP Nurse Practitioner; Visit Provider Nurse Practitioner
DX: M75.102 Unspecified rotator cuff tear or rupture of left shoulder, not specified as traumatic (principal); R93.6 Abnormal findings on diagnostic imaging of limbs; M19.012 Primary osteoarthritis, left shoulder; M67.813 Other specified disorders of tendon, right shoulder; X50.9XXA Other and unspecified overexertion or strenuous movements or postures, initial encounter
CPT/HCPCS: 73221

== ENCOUNTER 2024-12-23 16:54 | Emergency (ER) | payer OTHER, SELFPAY ==
[2024-12-23 16:56] VITALS: BP 175/98; PULSE 68; RESP 20; TEMP 36.6; O2SAT 99
--- NOTE | 2024-12-23 16:57 | ECG_ITS ---
[facility] Test Date: 2024-12-23 Pat Name: Marichuy Tejada Department: Room: Gender: Female Event Promotions Coordinator: : 1950 Requested By: Michael Rios Order Number: [id number] [place] MD: MIHAI LOVE Measurements Intervals [place] Rate: 66 P: 42 AR: 171 QRS: 28 QRSD: 89 T: 54 QT: 411 QTc: 433 Interpretive Statements SINUS RHYTHM Compared to ECG 05/06/2024 07:57:07 No significant changes Electronically Signed On 12-25-2024 20:59:45 CDT by MIHAI LOVE [id number]
[2024-12-23 17:11] VITALS: PULSE 68; RESP 18; O2SAT 97
--- NOTE | 2024-12-23 17:30 | XRR_ITS ---
PROCEDURE INFORMATION: Exam: XR Chest Exam date and time: 12/23/2024 5:32 PM Age: 74 years old Clinical indication: Pain; Chest pressure; Additional info: Chest pain TECHNIQUE: Imaging protocol: Radiologic exam of the chest. Views: 1 view. COMPARISON: CR XR chest 1V portable [id number] 05/06/2024 7:46 AM FINDINGS: Lungs: Unremarkable. No consolidation. Pleural spaces: Unremarkable. No pleural effusion. No pneumothorax. Heart/Mediastinum: Unremarkable. No cardiomegaly. Bones/joints: Unremarkable. XR/XR chest 1V portable [id number] IMPRESSION: No acute findings.
[2024-12-23 17:41] LABS: Basophils # 0.2 10^3/uL (0.0-0.1); Basophils % 1.9 %; Eosinophils # 0.5 10^3/uL (0.0-0.8); Eosinophils % 5.6 %; Hematocrit 44.5 % (36-47); Lymphocytes # 2.9 10^3/uL (0.8-4.8); Lymphocytes % 32.7 %; Mean Corpuscular HGB Conc 34.2 g/dL (30-55); Mean Corpuscular Hemoglobin 31.5 pg (27-33); Mean Corpuscular Volume 92.3 fl (85-98); Monocytes # 0.9 10^3/uL (0.2-0.9); Monocytes % 10.7 %; Neutrophils # 4.22 10^3/uL (1.8-7.7); Neutrophils % 48.4 %; Nucleated Red Blood Cells % 0 %; Platelet Count 291 10^3/cmm (157-399); Red Blood Count 4.82 10^6/uL (3.85-5.65); Red Cell Distribution Width 11.9 % (12.1-15.1); White Blood Count 8.72 10^3/uL (3.29-11.43)
--- NOTE | 2024-12-23 17:48 | W.ED.SOB ---
HPI - SOB/Dyspnea General: Chief Complaint: Shortness of Breath/Dyspnea Stated Complaint: sob, chest tightness Time Seen by Provider: 12/23/24 16:56 History of Present Illness: HPI Narrative: Patient is a generally well-appearing 74-year-old female from home seen for constellation of symptoms including shortness of breath, lightheadedness, tingling hands, and a sensation of chest tightness. She states that she had a similar about 15 years ago at which time she had a workup and was found not to have any heart problems. She has mild emphysema and does not smoke anymore. She denies recent sickness, fever, cough, congestion, headache, nausea, vomiting, diarrhea, constipation. Symptoms have been ongoing since 230 this afternoon. They are not necessarily worse with exertion or better with rest. She describes the squeeze or tightness as 3 of 10 currently. She states that it feels like she cannot get enough air and that she has a hard time exhaling as well. She has no history of PE and does not require any medication for her mild emphysema. She has not been on steroids or bronchodilators recently. Related Data Home Medications ?Medication ?Instructions ?Recorded ?Confirmed acetaminophen 325 mg tablet 325 mg PO QID PRN Pain 07/14/23 11/13/24 alendronate 70 mg tablet 70 mg PO Q7D 07/14/23 11/13/24 aspirin 81 mg tablet,delayed 81 mg PO DAILY 07/14/23 11/13/24 release cholecalciferol (vitamin D3) 25 25 mcg PO DAILY 07/14/23 11/13/24 mcg (1,000 unit) tablet (Vitamin D3) cyclobenzaprine 10 mg tablet 10 mg PO BID PRN Spasms 07/14/23 11/13/24 diclofenac sodium 1 % topical gel 4 g topical QID PRN osteoarthritis 07/14/23 11/13/24 indomethacin 25 mg capsule 25 mg PO BID 07/14/23 11/13/24 meclizine 25 mg tablet 25 mg PO TID PRN Dizziness 07/14/23 11/13/24 montelukast 10 mg tablet 10 mg PO QPM 07/14/23 11/13/24 pyridoxine (vitamin B6) 100 mg 50 mg PO DAILY 07/14/23 11/13/24 tablet (Vitamin B-6) ropinirole 1 mg tablet 1 mg PO BID 07/14/23 11/13/24 lisinopril 20 mg tablet mg PO 11/13/24 11/13/24 ondansetron 8 mg disintegrating 8 mg PO Q8H PRN 11/13/24 11/13/24 tablet Previous Rx's ?Medication ?Instructions ?Recorded methylprednisolone 4 mg tablets in See Rx Instructions PO .COMPLEX 05/06/24 a dose pack (Medrol (Kurt)) #21 ea Allergies Allergy/AdvReac Type Severity Reaction Status Date / Time albuterol Allergy ADR/ALGY-Pa Verified 11/13/24 13:56 lpitations oxycodone Allergy ADR-Itching Verified 11/13/24 13:56 PFS ED PFSH: Medical History Syncope Family History Father No problems noted. Social History Smoking and tobacco/nicotine status: former use of tobacco/nicotine (Quit before 1994) Alcohol intake: current Alcohol intake frequency: few times a month Substance/Drug Use: never Physical Exam Const: COMMON NORMALS: no acute distress, patient oriented x3 and alert HENMT: COMMON NORMALS: normocephalic and atraumatic HEAD & SCALP: normocephalic and atraumatic Eye: COMMON NORMALS: Equal, round and reactive pupils present, EOMs intact bilaterally and no scleral icterus PUPIL: Yes Equal, round and reactive pupils present Chest: OTHER: Chest pressure is not reproducible with palpation or deep inspiration. Resp: COMMON NORMALS: normal respiratory effort and No retractions Cardio: COMMON NORMALS: regular rate, regular rhythm and No murmurs present (Cardio) RATE: regular rate RHYTHM: regular rhythm GI: COMMON NORMALS: Normal to inspection, nondistended, normoactive bowel sounds present, Soft to palpation and non-tender PALPATION: Yes Soft to palpation Neuro: COMMON NORMALS: patient oriented x3 SENSORIUM/ORIENTATION: Yes alert Skin: COMMON NORMALS: no rashes or lesions noted GENERAL SKIN EXAM: no rashes or lesions noted Course Vital Signs: Vital signs: Vital Signs Temperature 97.9 F 12/23/24 16:56 Pulse Rate 59 L 12/23/24 18:56 Respiratory Rate 14 12/23/24 18:05 Blood Pressure 127/80 12/23/24 18:56 Pulse Oximetry 95 12/23/24 18:56 Oxygen Delivery Me thod Room Air 12/23/24 18:56 MDM - SOB/Dyspnea Medical Decision Making Patient remained hemodynamically stable for ED course. EKG shows nothing acute. X-ray is unremarkable. Troponin x 2 is negative. Remainder of labs are noncontributory. Symptoms have abated without specific intervention. I am uncertain of the cause but I suspect there may be a component of anxiety contributing to his symptoms. I feel that her lightheadedness and tingly extremities and nausea may have resulted from deep breathing causing a vasovagal type scenario. Regardless, I feel she is safe for outpatient follow-up and discharge. She agrees and will be discharged in stable improved condition with her . Lab Data 12/23/24 17:05 12/23/24 17:05 Labs/Radiology: Radiology Impressions Chest X-Ray 12/23/24 17:30 IMPRESSION: No acute findings. Laboratory Results WBC 8.72 10^3/uL (3.29-11.43) 12/23/24 17:05 RBC 4.82 10^6/uL (3.85-5.65) 12/23/24 17:05 Hgb 15.20 g/dL (11.27-16.99) 12/23/24 17:05 Hct 44.5 % (36-47) 12/23/24 17:05 MCV 92.3 fl (85-98) 12/23/24 17:05 MCH 31.5 pg (27-33) 12/23/24 17:05 MCHC 34.2 g/dL (30-55) 12/23/24 17:05 RDW 11.9 % (12.1-15.1) L 12/23/24 17:05 Plt Count 291 10^3/cmm (157-399) 12/23/24 17:05 MPV 9.0 fL (7.4-10.4) 12/23/24 17:05 Neut % (Auto) 48.4 % 12/23/24 17:05 Lymph % (Auto) 32.7 % 12/23/24 17:05 Logan % (Auto) 10.7 % 12/23/24 17:05 Eos % (Auto) 5.6 % 12/23/24 17:05 Baso % (Auto) 1.9 % 12/23/24 17:05 Neut # (Auto) 4.22 10^3/uL (1.8-7.7) 12/23/24 17:05 Lymph # (Auto) 2.9 10^3/uL (0.8-4.8) 12/23/24 17:05 Logan # (Auto) 0.9 10^3/uL (0.2-0.9) 12/23/24 17:05 Eos # (Auto) 0.5 10^3/uL (0.0-0.8) 12/23/24 17:05 Baso # (Auto) 0.2 10^3/uL (0.0-0.1) H 12/23/24 17:05 Nucleated RBC % (auto) 0 % 12/23/24 17:05 Nucleated RBCs # 0.0 /100WBC 12/23/24 17:05 Sodium 138 mmol/L (136-145) 12/23/24 17:05 Potassium 3.6 mmol/L (3.5-5.1) 12/23/24 17:05 Chloride 103 mmol/L (98-107) 12/23/24 17:05 Carbon Dioxide 23 mmol/L (22-29) 12/23/24 17:05 Anion Gap 15.6 (5-19) 12/23/24 17:05 BUN 13 mg/dL (8-23) 12/23/24 17:05 Creatinine 0.7 mg/dL (0.5-0.9) 12/23/24 17:05 GFR Calculation Not Reportable 12/23/24 17:05 Glucose 104 mg/dL (65-115) 12/23/24 17:05 Calculated Osmolality 286 mOsm/kg (285-295) 12/23/24 17:05 Calcium 9.8 mg/dL (8.5-10.5) 12/23/24 17:05 Total Bilirubin 0.2 mg/dL (0.15-1.2) 12/23/24 17:05 AST 19 U/L (0-32) 12/23/24 17:05 ALT 14 U/L (0-33) 12/23/24 17:05 Alkaline Phosphatase 99 U/L (35-105) 12/23/24 17:05 Troponin T Baseline < 6 ng/L (0-10) 12/23/24 17:05 Troponin T 120 Minute 6.00 ng/L (0-10) 12/23/24 19:01 Delta Troponin T 0.99673 ABS# (0-10) 12/23/24 19:01 Total Protein 6.8 g/dL (6.6-8.7) 12/23/24 17:05 Albumin 4.1 g/dL (3.5-5.2) 12/23/24 17:05 Globulin 2.7 g/dL (1.3-4.6) 12/23/24 17:05 All radiology interpretation(s) finalized by discharge EKG Data EKG 1: Interpretation: Time?1656?normal sinus rhythm, rate of 66, no ST segment elevation or depression, no T wave inversions, intervals within normal limits. QTc = 425 Discharge Plan Discharge Patient Disposition: Home Clinical Impression: Chest pressure, Breath shortness, Light-headedness Condition: Stable Prescriptions: No Action ondansetron 8 mg tablet,disintegrating 8 mg PO Q8H PRN lisinopril 20 mg tablet PO cyclobenzaprine 10 mg Tablet 10 mg PO BID PRN (Reason: Spasms) alendronate 70 mg Tablet 70 mg PO Q7D indomethacin 25 mg Capsule 25 mg PO BID Rx Instructions: administer with food or milk acetaminophen 325 mg Tablet 325 mg PO QID PRN (Reason: Pain) ropinirole 1 mg Tablet 1 mg PO BID Aspir-81 81 mg Tablet,Delayed Release (Dr/Ec) 81 mg PO DAILY meclizine 25 mg Tablet 25 mg PO TID PRN (Reason: Dizziness) montelukast 10 mg Tablet 10 mg PO QPM Vitamin B-6 100 mg Tablet 50 mg PO DAILY Vitamin D3 25 mcg (1,000 unit) Tablet 25 mcg PO DAILY diclofenac sodium 1 % Gel 4 g TOPICAL QID PRN (Reason: osteoarthritis) Rx Instructions: apply to single knee, ankle, foot; for foot includes sole/toes/top of foot Medrol (Kurt) 4 mg tablets,dose pack See Rx Instructions .ROUTE .COMPLEX Qty: 21 0RF Rx Instructions: orally per package directions Discharge Orders: Discharge ED (Routine); Ordered 12/23/24 Ordered By: Michael Bolden Referrals: Rima Townsend FNP [Primary Care Provider] - Discharge Diet: Usual diet Discharge Activity: Resume usual activity Patient Instructions: Near Syncope (ED) Print Language: Turkmen Coding Level of Care Code ED 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
[2024-12-23 17:59] VITALS: BP 140/78; PULSE 61; PULSE 62; RESP 18; O2SAT 98
[2024-12-23 17:59] LABS: Alanine Aminotransferase 14 U/L (0-33); Albumin Level 4.1 g/dL (3.5-5.2); Alkaline Phosphatase 99 U/L (35-105); Aspartate Amino Transferase 19 U/L (0-32); Blood Urea Nitrogen 13 mg/dL (8-23); Calcium 9.8 mg/dL (8.5-10.5); Carbon Dioxide 23 mmol/L (22-29); Chloride 103 mmol/L (98-107); Globulin 2.7 g/dL (1.3-4.6); Glucose 104 mg/dL (65-115); Osmolality Calculated 286 mOsm/kg (285-295); Sodium 138 mmol/L (136-145); Total Bilirubin 0.2 mg/dL (0.15-1.2); Total Protein 6.8 g/dL (6.6-8.7); Troponin(5th) Baseline < 6 ng/L (0-10)
[2024-12-23] MEDS: nitroglycerin 1 gm/inch oint Pkt 0.5 INCH TOPICAL (17:59)
[2024-12-23 18:00] LABS: Anion Gap 15.6 (5-19); Potassium 3.6 mmol/L (3.5-5.1)
[2024-12-23 18:05] VITALS: BP 126/73; PULSE 74; RESP 14; O2SAT 95
[2024-12-23 18:56] VITALS: BP 127/80; PULSE 59; O2SAT 95
[2024-12-23 19:24] LABS: Troponin 5 2HR Delta 0.00001 ABS# (0-10)
== END 2024-12-23 20:35 | disposition home or self-care (01) ==
PROVIDERS: Emergency Provider Student in an Organized Health Care Education/Training Program; PCP Nurse Practitioner
DX: R07.89 Other chest pain (principal); R06.02 Shortness of breath; R42 Dizziness and giddiness; Z87.891 Personal history of nicotine dependence
CPT/HCPCS: 36415; 71045; 80053; 84484; 85025; 93005; 99285; J9999

== ENCOUNTER → 2024-12-25 11:15 | Outpatient (BNVA) | payer OTHER, SELFPAY | PROVIDERS: PCP Nurse Practitioner; Visit Provider Orthopaedic Surgery | DX: M75.122 Complete rotator cuff tear or rupture of left shoulder, not specified as traumatic (principal); Z09 Encounter for follow-up examination after completed treatment for conditions other than malignant neoplasm | CPT/HCPCS: 99213 ==

== ENCOUNTER 2025-01-09 07:16 | Day surgery (SDC) | payer OTHER, SELFPAY ==
[2025-01-09] VITALS (10 sets, daily range): BP systolic 116–160; BP diastolic 72–91; PULSE 85–101; RESP 16–18; TEMP 36.2–36.5; O2SAT 92–97; BMI 29.2
[2025-01-09] MEDS: ondansetron 2 mg/ML SDV 2 mL 4 MG IVP ×2 (07:47→12:30)
[2025-01-09] MEDS: sodium chloride 0.9% 1,000 ML 30 ML IV (07:47)
--- NOTE | 2025-01-09 08:07 | W.PM.OPSUD ---
Surgery/Procedure H&P Update DATE OF PROCEDURE: January 09, 2025 DATE H&P PERFORMED: 12/25/24 H&P UPDATE INFORMATION: I have reviewed H&P completed within last 30 days, I have examined patient prior to procedure and No changes to prior documentation PREOP DIAGNOSIS: Internal derangement left shoulder PLANNED PROCEDURE: Operation Date: 01/09/25 08:50 Proposed Procedures p Left shoulder arthroscopy 71404 mini open rotator cuff repair(Left) - Mansoor Potter MD s Acromioplasty(Left) - Mansoor Potter MD
--- NOTE | 2025-01-09 08:16 | ANES.PREANE2 ---
Pre-Anesthetic Assessment Height/Weight: Height 1.73 m Weight 87.09 kg Temp Pulse Resp BP Pulse Ox O2 Del Method 97.3 F L 85 16 146/88 95 Room Air 01/09/25 07:36 01/09/25 07:36 01/09/25 07:36 01/09/25 07:36 01/09/25 07:36 01/09/25 07:36 Preop Diagnosis: Internal derangement left shoulder Operation Date: 01/09/25 08:50 Proposed Procedures p Left shoulder arthroscopy 34648 mini open rotator cuff repair(Left) - Mansoor Potter MD s Acromioplasty(Left) - Mansoor Potter MD Familial anesthetic complications: None Was Beta Domingo taken within 24 hours: N/A Was Clonidine taken within 24 hours: N/A Last intake: Intake Last Liquid Date 01/08/25 Last Liquid Time 23:45 Last Solid Date 01/08/25 Last Solid Time 23:45 Social No alcohol and No tobacco Exam alert, oriented x 3, clear to auscultation bilaterally and regular rate & rhythm Airway Mallampati: Class I Dentition: partials CV/HEM Hypertension Neuropsych Anxiety Anesthetic Plan ASA status: 2 Anesthesia: General and Regional (specify below) Risk of > 500 ml blood loss (7ml/kg in children): No Medications/Allergies Home Medications ?Medication ?Instructions ?Recorded ?Confirmed ?Last Taken ?Type acetaminophen 325 mg tablet 325 mg PO QID PRN Pain 07/14/23 01/08/25 Unknown History alendronate 70 mg tablet 70 mg PO Q7D 07/14/23 01/08/25 12/25/24 History cholecalciferol (vitamin D3) 25 25 mcg PO DAILY 07/14/23 01/08/25 12/25/24 History mcg (1,000 unit) tablet (Vitamin D3) cyclobenzaprine 10 mg tablet 10 mg PO BID PRN Spasms 07/14/23 01/08/25 Unknown History diclofenac sodium 1 % topical gel 4 g topical QID PRN osteoarthritis 07/14/23 01/08/25 01/06/25 History indomethacin 25 mg capsule 25 mg PO BID 07/14/23 01/08/25 12/25/24 History meclizine 25 mg tablet 25 mg PO TID PRN Dizziness 07/14/23 01/08/25 Unknown History montelukast 10 mg tablet 10 mg PO QPM 07/14/23 01/08/25 12/25/24 History pyridoxine (vitamin B6) 100 mg 50 mg PO DAILY 07/14/23 01/08/25 12/25/24 History tablet (Vitamin B-6) ropinirole 1 mg tablet 1 mg PO BID 07/14/23 01/08/25 12/25/24 History lisinopril 20 mg tablet 20 mg PO DAILY 11/13/24 01/08/25 01/07/25 History ondansetron 8 mg disintegrating 8 mg PO Q8H PRN Nausea And Vomiting 11/13/24 01/08/25 Unknown History tablet Allergies Allergy/AdvReac Type Severity Reaction Status Date / Time albuterol Allergy ADR/ALGY-Pa Verified 01/08/25 08:56 lpitations tramadol Allergy ADR-Chest Verified 01/08/25 08:56 Pain Current Medications Generic Name Dose Route Start Last Admin Trade Name Freq PRN Reason Stop Dose Admin Sodium Chloride 1,000 mls @ 30 mls/hr 01/09/25 07:30 01/09/25 07:47 Sodium Chloride 0.9% IV 01/10/25 07:29 30 mls/hr .Q24H CECIL Administration Ondansetron HCl 4 mg 01/09/25 07:22 01/09/25 07:47 Ondansetron 2 Mg/Ml Sdv 2 Ml IVP 4 mg Q5M PRN Administration NAUSEA AND VOMITING PFSH Anesthesia Medical History (Updated 12/31/24 @ 00:01 by MALAIKA Keita) Syncope Family History Father No problems noted. Social History Smoking and tobacco/nicotine status: former use of tobacco/nicotine (Quit before 1994) Alcohol intake: current Alcohol intake frequency: few times a month Substance/Drug Use: never Data Anesthesia Cardiac Studies: Echocardiogram 08/11/23 Cardiac Event Monitor 07/07/23 Anesthesia Procedures Nerve Block Nerve Block 1: Main Anesthesia: general anesthesia Time Out Performed: Yes Consent: requested by attending/covering physician, from patient, from other, risks and benefits reviewed and patient agrees to proceed Nerve block location: interscalene (L) Anesthesia monitors applied: pulse oximetry, EKG, BP cuff and oxygen Nerve block position: semi sitting Anesthetic Used: ropivicaine 0.5% (20 ml) Ultrasound used to: recognize landmarks, visualize and ID brachial plexus, in supraclavicular region and visualize and ID interscalene groove Nerve Stimulator Used?: No Interscalene/Femoral BLK: 2 stimuplex 22 g needle used for position and inplane approach, visualize local anesthetic spread and no vascular puncture identified Injection: neg aspiration of heme Patient Tolerated Procedure: well Complications: none
[2025-01-09] MEDS: ceFAZolin 2,000 mg SDV 2000 MG IVP (11:00)
--- NOTE | 2025-01-09 12:10 | P.OP_ITS ---
Operative Report Date of procedure: January 09, 2025 Surgeon: Mansoor Potter MD Procedure: Preop diagnosis: Internal derangement left shoulder with torn rotator cuff Postop diagnosis: Degenerative tearing of the anterior labrum and superior labrum. 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 Procedure: Diagnostic left shoulder arthroscopy with debridement of labrum, chondroplasty of humeral head and glenoid, debridement of rotator cuff tear. Mini open rotator cuff repair with acromioplasty Surgeon: Mansoor Potter MD Anesthesia: General With preoperative scalene block EBL: 5 cc Indications: Marichuy is a 74-year-old white female who presented to orthopedic clinics with debilitating pain in her left shoulder. She unable to raise her arm. Has positive clinical signs for rotator cuff tear as I subsequent MRIs confirm this. It is also confirmed degenerative tearing of the labrum and some osteoarthritic changes with the glenohumeral joint line. Having failed all conservative measures patient was offered a diagnostic shoulder arthroscopy with all indicated procedures. All risk benefits and treatment alternatives were discussed that she was willing to proceed with surgical intervention Procedure: After obtaining her consent patient had scalene block administered in preop holding area. Patient was then taken to the operating room and placed on the operative table in supine position. General anesthetic administered. Once good anesthesia achieved patient placed up in the beachchair position and secu red to the bed as well as well-padded. Left upper extremity and shoulder were prepped and draped usual fashion. After surgical timeout standard posterior portals made #11 blade and camera cannulas placed within the glenohumeral joint line. Anterior working portal was also placed just inferior to the clavicle. Evaluation in the area and probing demonstrated significant degenerative tearing of the anterior labrum all the way up to the superior portion. Biceps tendon was still intact to its attachment at the glenoid. 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 Also grade II chondromalacia of the glenoid. At this point using mechanical shaver labrum was debrided down to stable cartilaginous space in the both anterior and superior areas. Chondroplasty was also done the humeral head and glenoid with a mechanical shaver. Evaluating the rotator cuff just posterior to the biceps hiatus there is near through and through tear of the supraspinatus tendon as it was quite thinned. This too is debrided mechanical shaver. At this point a minimally invasive incision was made off the anterior lateral corner of the acromion. Sharp dissection taken down to subcutaneous tissue electrocautery used hemostasis. Electrocautery is used to dissect down to the anterior aspect of the acromion feeling the deltoid off of this. There is significant bony hook on the anterior inferior surface of the acromion. Using a small microsagittal saw acromioplasty was undertaken and bone was removed with rongeur. Once down into the subacromial bursa a thickened bursa was sharply debrided. Evaluation of the rotator cuff demonstrated a tear with approximately 1 cm in length and thinning of the tendon around there of the supraspinatus tendon. This was freshened up with a #15 blade. Subsequently two 2.9 mm juggernaut anchors were placed equidistant from each other and the tear. Each of these anchors were double sutured therefore for horizontal mattress sutures were used to repair the rotator cuff. Once repair was done shoulder put the range of motion found to be stable with good fixation of the rotator cuff. Areas washed sterile irrigation. Deltoid reapproximated to the acromion with 0 Vicryl [id number] sutures. Subcutaneous was reapproximated 0 Vicryl interrupted sutures. Skin was closed with 3-0 Prolene. The minimally invasive rotator cuff repair was closed a running horizontal mattress suture of 3-0 Prolene. The remainder of the portals were closed with 3-0 Prolene interrupted sutures. Wounds were then cleaned and dried dressed Xeroform gauze, sterile gauze dressing, ABDs, and Medipore tape. Patient placed abduction pillow and sling. Patient was then awakened transferred to cover room stable condition
[2025-01-09] MEDS: albuterol 2.5 MG/0.5 ML NEB (12:44)
[2025-01-09] MEDS: acetaminophen 1,000 MG/100 ML PIGGYBACK 400 MG IV (13:10)
--- NOTE | 2025-01-09 14:30 | ANE.PACU2 ---
Inpatient post-anesthesia follow up: Airway intact: Yes Vital signs: Temperature 97.7 F Pulse Rate 90 Respiratory Rate 16 Blood Pressure 124/72 Pulse Oximetry 94 Oxygen Delivery Me thod Room Air Oxygen Flow Rate Fraction of Inspir ed Oxygen Hydration adequate: Yes Nausea and vomiting: No Pain level: 1 Mental status: Baseline
== END 2025-01-09 14:26 | disposition home or self-care (01) ==
PROVIDERS: PCP Nurse Practitioner; Visit Provider Orthopaedic Surgery
PROC: (CPT 23130; 2025-01-09 08:30)
DX: M75.112 Incomplete rotator cuff tear or rupture of left shoulder, not specified as traumatic (principal); S43.432A Superior glenoid labrum lesion of left shoulder, initial encounter; S43.492A Other sprain of left shoulder joint, initial encounter; Z87.891 Personal history of nicotine dependence; Z79.899 Other long term (current) drug therapy; Z79.82 Long term (current) use of aspirin; X58.XXXA Exposure to other specified factors, initial encounter
CPT/HCPCS: 23412; 23130; 29823; C1713; J0131; J0690; J1100; J2371; J2405; J2704; J3010; J3490; J7030; J7611; J9999

== ENCOUNTER 2025-01-11 06:59 | Outpatient (CLI) | payer OTHER, SELFPAY ==
--- NOTE | 2025-01-11 07:03 | USCV_ITS ---
Terrell Marichuy Age: 74 Gender: F : 1950 Exam Date: 01/11/2025 07:14 Ordering Phys: Rima Townsend Technologist: RAO [place]am [place] [facility] [place]ication: plaque HISTORY: Diameter (cm) AP x Transverse x Length Velocity (cm/s) Waveform Prox Aorta: 2.30 x 2.40 x 116.70 Mid Aorta: 2.10 x 2.30 x 55.10 Distal Aorta: 1.60 x 1.70 x 140.10 Right Iliac Prox: 1.11 x 1.21 x 124.70 Left Iliac Prox: 1.49 x 1.35 x 162.00 Stent Prox Landing x x Aneurysmal Sac Max x x Lt Lat Sac Dim Rt Lat Sac Dim Stent Dist Landing x x Right Iliac Stent x x Left Iliac Stent x x Right Renal Art Left Renal Art FINDINGS: CONCLUSIONS No evidence of abdominal aortic or bilateral iliac aneurysm. 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 Rick Pollard MD (Electronically Signed) Final Date: 11 Jan 2025 09:56 S
== END 2025-01-11 07:00 | disposition home or self-care (01) ==
PROVIDERS: PCP Nurse Practitioner; Visit Provider Nurse Practitioner
DX: I70.0 Atherosclerosis of aorta (principal)
CPT/HCPCS: 93978

== ENCOUNTER 2025-01-16 12:01 | Outpatient (CLI) | payer OTHER, SELFPAY ==
--- NOTE | 2025-01-16 12:04 | USCV_ITS ---
Marichuy Tejada Age: 74 Gender: F : 1950 Exam Date: 01/16/2025 12:23 Ordering Phys: Rima Townsend Technologist: RAO Exam Location: [facility] – [place] Indication: memory loss Risk Factors: Previous Vascular Surgery: Right Brachial BP: / Left Brachial BP: / Right Left Velocity (cm/s) Spectral Plaque Velocity (cm/s) Spectral Plaque Syst/Diast Broadening Syst/Diast Broadening 62.10/ 14.10 Prox CCA 77.10 / 21.40 58.40/ 17.60 Mid CCA 61.90 / 17.10 62.60/ 17.40 Distal CCA 59.70 / 16.00 43.60/ 10.70 Prox ICA 31.30 / 10.00 45.40/ 14.70 Mid ICA 50.50 / 21.40 54.90/ 19.50 Distal ICA 53.50 / 21.10 46.80 ECA 52.10 0.70 ICA/CCA 0.50 Antegrade Vertebral Antegrade 28.50/ 7.90 cm/s 20.00/ 5.00 cm/s Tri Subclavian Tri 53.70 88.70 CONCLUSIONS Right ICA stenosis <50%. Moderate atheromatous plaque right carotid bulb/ICA. Left ICA stenosis <50%. Moderate atheromatous plaque left carotid bulb/ICA. Intimal thickening in the common carotid arteries and internal carotid arteries bilaterally. Normal antegrade Doppler flow noted in the right vertebral artery. Normal antegrade Doppler flow noted in the left vertebral artery. Rick Pollard MD (Electronically Signed) Final Date: 16 Jan 2025 15:07 S
== END 2025-01-16 12:02 | disposition home or self-care (01) ==
PROVIDERS: PCP Nurse Practitioner; Visit Provider Nurse Practitioner
DX: I65.23 Occlusion and stenosis of bilateral carotid arteries (principal)
CPT/HCPCS: 93880

== ENCOUNTER → 2025-01-26 09:40 | Outpatient (BNVA) | payer OTHER, SELFPAY | PROVIDERS: PCP Nurse Practitioner; Visit Provider Orthopaedic Surgery | DX: M25.512 Pain in left shoulder (principal); Z98.890 Other specified postprocedural states | CPT/HCPCS: 99024 ==

== ENCOUNTER → 2025-03-08 11:09 | Outpatient (BNVA) | payer OTHER, SELFPAY | PROVIDERS: PCP Nurse Practitioner; Visit Provider Orthopaedic Surgery | DX: Z98.890 Other specified postprocedural states (principal) | CPT/HCPCS: 99024 ==

== ENCOUNTER 2025-03-12 06:22 | Emergency (ER) | payer OTHER, SELFPAY ==
--- OUTSIDE RECORDS SUMMARY | 2024-03-15 05:00 | XMS_ITS | Encounter Summary ---
Author Name [facility] Address [address] [place] [address] Care Team Providers Care Environmental Educator Name Role Phone JUAN CARLOS BRENNAN Primary Care Provider LE Hua Primary Care Provider Unavailabl e Insurance Providers: All historical and current Section Date Range: From patient's date of to the date document was created. This section includes the names of all active insurance providers for the patient. Insurance Provider Type of Coverage Plan Name Start of Policy Coverage End of Policy Coverage Group Number Member ID Insurance Provider's Telephone Number Policy Erwin's Name Patient's Relationship to Policy Erwin STEPHA MCR (WNR) MEDICARE ADVANTAGE MCR (WNR) Aug 30, 2022 [id number] GERDA ARAGON PATIENT HU[employer] MCR (WNR) MEDICARE ADVANTAGE MCR (WNR) Aug 30, 2022 [id number] [phone] GERDA ARAGON PATIENT MEDICARE (WNR) MEDICARE (M) PART A Jun 30, 2017 PART A [id number] [phone] GERDA ARAGON PATIENT MEDICARE (WNR) MEDICARE (M) PART B Jun 30, 2017 PART B [id number] [phone] GERDA ARAGON PATIENT MEDICARE (WNR) MEDICARE (M) PART A Jun 30, 2017 PART A [id number] [phone] GERDA ARAGON PATIENT MEDICARE (WNR) MEDICARE (M) PART B Jun 30, 2017 PART B [id number] [phone] GERDA ARAGON PATIENT [employer] MCR (WNR) MEDICARE ADVANTAGE [facility] (WNR) Sep 30, 2023 [id number] GERDA ARAGON PATIENT Selected Encounter This section includes the information on record at [place] for the Encounter. Date/Time Encounter Type Encounter Description Reason Provider Source Mar 15, 2024 10:00 AM CHIROPRACT MAN 3-4 [employer] ICD-10-CM M99.01 Segmental and somatic dysfunction of cervical region MORRIS EASTMAN Encounter Template Text not used by [facility] Assessments - Encounter Diagnoses This section includes the primary and secondary diagnoses documented for the Encounter. Date/Time Primary/Secondary Diagnosis Diagnosis Name Provider Source Mar 15, 2024 10:11 AM PRIMARY Segmental and somatic dysfunction of cervical region [facility] E[facility] Mar 15, 2024 10:11 AM SECONDARY Cervicalgia [facility] Mar 15, 2024 10:11 AM SECONDARY Other intervertebral disc degeneration, lumbosacral region [facility] Mar 15, 2024 10:11 AM SECONDARY Pain in thoracic spine [facility] Mar 15, 2024 10:11 AM SECONDARY Segmental and somatic dysfunction of lumbar region [facility] Mar 15, 2024 10:11 AM SECONDARY Segmental and somatic dysfunction of pelvic region [facility] EAST[facility] Mar 15, 2024 10:11 AM SECONDARY Segmental and somatic dysfunction of thoracic region [facility] Plan of Treatment: Future Appointments (+ 6 months) and Future Tests (+/- 45 days) The Plan of Treatment section includes future care activities for the patient from all [place] treatmentfacilities. This section includes future appointments and future orders which are active, pending or scheduled. Future Appointments This section includes appointments that were scheduled to occur 6 months from the date of the Encounter, up to a maximum of 20 appointments. The data comes from all [place] treatment facilities. Appointment Date/Time Appointment Type Appointme nt Facility Name Mar 22, 2024 02:00 PM [facility] Mar 27, 2024 08:30 AM [facility] Mar 29, 2024 08:20 AM [facility] Mar 29, 2024 02:00 PM [facility] Apr 05, 2024 08:30 AM [facility] Apr 05, 2024 02:30 PM [facility] [place] [facility] Apr 18, 2024 12:30 PM [facility] [place] [facility] May 03, 2024 02:40 PM [facility] May 08, 2024 02:30 PM [facility] May 09, 2024 03:40 PM [facility] May 10, 2024 08:20 AM [facility] May 10, 2024 02:00 PM [facility] May 17, 2024 03:00 PM [facility] May 18, 2024 08:20 AM [facility] May 30, 2024 03:15 PM [facility] [place] [facility] May 31, 2024 08:20 AM [facility] May 31, 2024 03:00 PM [facility] Jun 06, 2024 08:00 AM [facility] Jun 07, 2024 08:00 AM [facility] Jun 14, 2024 08:20 AM [facility] Lab Results: +/- 30 days of the encounter This section includes the Chemistry and Hematology Lab Results on record with [place] for the patient. Radiology Reports and Pathology Reports are provided separately, in subsequent sections. Lab Results This section contains the Chemistry/Hematology Results that were resulted 30 days before or 30 daysafter the date of the Encounter. Date/Time Source Result Type Result - Unit Interpretation Reference Range Specimen Type Comment Mar 27, 2024 08:49 AM [facility] COVID-19 SCREENING (CEPHEID) NASOPHARYNX Specimen T ype: NASOPHARYNX Comment: A Negative result does not preclude infection with SARS-CoV-2 and should not be used as the sole basis for treatment or other patient management decisions. Positive results do not rule out bacterial infection or co-infection with other viruses. All results must be combined with clinical observations, patient history and epidemiological information for final interpretation. A POSITIVE result is considered a positive test for COVID-19. This indicates that RNA from SARS-CoV-2 (formerly 2019-nCoV) was detected, and the patient is infected with the virus and presumed to be contagious. If requested by public [facility] authority, specimen will be sent for additional testing. Ordering Provider: FELICE BRENNAN Report Released Date/Time: Mar 27, 2024 08:48 AM Reporting Lab: [place] [address] [facility] [id number] Performing Lab: [facility] [address] [facility] [id number] COVID-19 (Cepheid) Negative Negative Flu A(Cepheid) Negative Negative Flu B(Cepheid) Negative Negative RSV (Cepheid) Negative Negative Vital Signs: All taken on the encounter date This section contains inpatient and outpatient Vital Signs collected on the date of the Encounter. Date/Time Temperature Pulse Blood Pressure Respiratory Rate SP02 Pain Height Weight Body Mass Index Source Mar 15, 2024 10:00 AM 98 73 147/82 [facility] Social History: Smoking Status (Most current) and Tobacco Use (All prior to encounter date) This section includes the most current, and the historical, smoking and tobacco- related health factors from the [place] facility where the Encounter took place. Current Smoking Status This section includes the most current smoking, or tobacco-related health factor, from the [place] facility where the Encounter took place. Date/Time Current Smoking Status Comment Facil ity January 21, 2024 10:00 AM [place]-TOBACCO FORMER USER [facility] Tobacco Use History This section includes a history of the smoking, or tobacco-related health factors, that were collected on or before the date of the Encounter. The data comes from the [place] facility where the Encounter took place. Date/Time Smoking Status/Tobacco Use Comment F acility January 21, 2024 10:00 AM [place]-TOBACCO QUIT 5 TO < 15 YRS [facility] January 27, 2023 12:31 PM [place]-TOBACCO FORMER USER [facility] January 27, 2023 12:31 PM [place]-TOBACCO QUIT 15 YRS OR MORE [facility] Advance Directives: All historical and current Section Date Range: From patient's date of to the date document was created. This section includes ALL of a patient's completed or amended [place] Advance and Rescinded Directives. The entries below indicate that a directive exists for the patient, but an actual copy is not included with this document. The data comes from all [place] facilities. Date Advance Directives Provider Source May 14, 2022 ADVANCE DIRECTIVE BERTHA NAZARIO [facility] Feb 05, 2017 ADVANCE DIRECTIVE DISCUSSION PEG SORENSEN [facility] Radiology Reports: +/- 30 days of the encounter Radiology Reports For cases when an order for radiology services may have been completed prior to the date of the Encounter, the report list includes the Radiology Reports that were completed up to 30 days before dateof the Encounter. For cases when an order for radiology services may have been completed after the date of the Encounter, the report list also includes the Radiology Reports that were completed up to30 days after date of the Encounter. The data comes from all [place] treatment facilities. Date/Time Radiology Report Provider Source Apr 05, 2024 03:[address] THORAX, DIAGNOS TIC, W/CONTRAST: GERDA ARAGON [id number] -1950 F Exm Date: APR 05, 2024@15:10 Req Phys: JUAN CARLOS BRENNAN Loc: OUTSIDE PB-CT (Req'g Loc) Img Loc: OUTSIDE PB-CT Service: Unknown Screen: Patient is unable to answer or is unsure Screen Comment: OUTSIDE STUDY (Case [id number] COMPLETE) CT THORAX, DIAGNOSTIC, W/CONTRAS(CT Detailed) CPT:80323 Reason for Study: Exam imported from outside Clinical History: Original Data for Imported Study Patient Name: GERDA ARAGON Date: 1950 Sex: F Study Date: 04/05/24 Study Time: 03:10:08 Study Description: CT chest w con* [id number] Referring Physician: UNKNOWN, UNKNOWN Series 1: 2 CT files, description: 2.0 Series 2: 61 CT files, description: AiCE 5.0 CE Axial Series 3: 61 CT files, description: AiCE AiCE 5.0 CE Axial Series 4: 3 CT files, description: 5 CE Series 5: 51 CT files, description: AiCE 5.000 CE Coronal Series 6: 66 CT files, description: AiCE 5.000 CE Sagittal Report Status: Electronically Filed Date Reported: MAY 08, 2024 Report: Electronically generated report for outside study. Impression: Electronically generated report for outside study. VERIFIED BY: / *ELECTRONICALLY FILED* [facility] Mar 27, 2024 08:50 AM CHEST X-RAY, 2 VIE WS: GERDA ARAGON [id number] -1950 F Exm Date: MAR 27, 2024@08:50 Req Phys: JUAN CARLOS BRENNAN Loc: PB-MICHAEL PACT [facility] (Req'g Img Loc: PB-XRAY [place] Service: Unknown [facility] , (Case [id number] COMPLETE) CHEST X-RAY, 2 VIEWS (RAD Detailed) CPT:02151 Reason for Study: ongoing cough Clinical History: ongoig cough Report Status: Verified Date Reported: MAR 27, 2024 Date Verified: MAR 27, 2024 Planning Assistant E-Sig: Report: PA and lateral views of the chest reveal degenerative skeletal changes and minimal scoliosis. There is atherosclerotic calcification. There is mild bilateral pulmonary hyperaeration. There is no infiltrate or effusion. Heart size is normal. Impression: No acute process Primary Interpreting Staff: KIESHA SERNA RADIOLOGIST (Planning Assistant, no e-sig) /KIESHA Riggs [facility] Encounter Notes: All associated encounter notes This section contains the clinical notes associated to the Encounter. Date/Time Encounter Note(s) Provider Source Mar 15, 2024 09:55 AM CHIROPRACTIC NOTE: LOCAL TITLE: CHIROPRACTIC FOLLOW UP NOTE PB STANDARD TITLE: CHIROPRACTIC NOTE DATE OF NOTE: MAR 15, 2024@09:55 ENTRY DATE: MAR 15, 2024@09:55:31 AUTHOR: MORRIS EASTMAN COSIGNER: URGENCY: STATUS: COMPLETED CHIROPRACTIC FOLLOW-UP VISIT Patient's language preference for health information: Marshallese Other Communication Methods Needed: SUBJECTIVE: The Jefferson is a 73 year old FEMALE being seen in the Chiropractic clinic for follow-up visit. 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 Today, the rates her pain level as a 8/10. PAST MEDICAL HISTORY: see problem list SOCIO-ECONOMIC HISTORY: Tobacco: No Prior Tobacco Use Status Available Alcohol: ____ ALLERGIES/ADVERSE REACTIONS: ALBUTEROL, CODEINE OBJECTIVE: CERVICAL SPINE: MOVEMENT/POSTURE: Upon inspection, observation is unremarkable. PALPATION: Tenderness was present at cervical segments C1 and C2. SEGMENTAL DYFUNCTION: Joint dysfunctions present upon evaluation C spine: C1 and C2. RANGE OF MOTION: AROM of the cervical spine was restricted in all planes of motion. The experience pain with the restricted AROM. LUMBAR/THORACIC SPINE: MOVEMENT/POSTURE: The Jefferson ambulates without issue. SEGMENTAL DYSFUNCTION: Joint dysfunction was noted in the T spine: T4 and T8, L spine: L5, and at the right SI joint. PALPATION: The following vertebral spinous processes were tender to palpation: T4, T8, L5, and the right PSIS. RANGE OF MOTION: AROM of the lumbar spine was restricted and painful in all planes of motion. REVIEW OF DIAGNOSTIC IMAGING: No data available ASSESSMENT: Cervical spine, thoracic spine, lumbar spine, and SI joint dysfunction with associated myofascial pain. PLAN: This is the fifth follow up treatment for the of a planned six treatments. Due to persistent neck and back pain, we will treat The 1x per week for 6 weeks. Prognosis: Fair Today's treatment of the consisted of chiropractic spinal adjustment of the cervical spine (prone), thoracic spine (prone), lumbar spine (prone), and the pelvis (prone) using Arthrostim. The procedure was well tolerated by the . GOALS: The goals of treatment include: 1) The reduction of symptomatology. 2) Instructing the in home exercises to improve cervical flexibility and strength, core strength, and lower extremity and core flexibility. 3) Helping the to understand the benefits of long-term continuation of the home exercise program and to commit to a long term acute care registered nurse exercise plan. /sarabjit/ [facility] Signed: 03/15/2024 10:04 MORRIS EASTMAN
--- OUTSIDE RECORDS SUMMARY | 2024-03-22 09:00 | XMS_ITS | Encounter Summary ---
Author Name [facility] [place] [facility] [place] Address [address] [place] [address] Care Team Providers Care Lasting Room Machine Operator Name Role Phone JUAN CARLOS BRENNAN Primary [...] Erwin's Name Patient's Relationship to Policy Erwin HUMANA MCR (WNR) MEDICARE ADVANTAGE MCR (WNR) Aug 30, 2022 [id number] GERDA TEJADA PATIENT HUMANA MCR (WNR) MEDICARE ADVANTAGE MCR (WNR) Aug 30, 2022 [id number] GERDA TEJADA PATIENT MEDICARE (WNR) MEDICARE (M) PART A Jun 30, 2017 PART A [id number] GERDA TEJADA PATIENT MEDICARE (WNR) MEDICARE (M) PART B Jun 30, 2017 PART B [id number] GERDA TEJADA PATIENT MEDICARE (WNR) MEDICARE (M) PART A Jun 30, 2017 PART A [id number] GERDA TEJADA PATIENT MEDICARE (WNR) MEDICARE (M) PART B Jun 30, 2017 PART B [id number] GERDA TEJADA PATIENT [facility] (WNR) MEDICARE ADVANTAGE [facility] (WNR) Sep 30, 2023 [id number] [phone] GERDA TEJADA PATIENT Selected Encounter This section includes the information on record at [place] for the Encounter. Date/Time Encounter Type Encounter Description Reason Provider Source Mar 22, 2024 02:00 PM HOT OR COLD PACKS THERAPY PHYSICAL THERAPY ICD-10-CM M13.812 Other specified arthritis, left shoulder JONATHAN LAWTON [facility] Encounter Template Text not used by [place] Assessments - Encounter Diagnoses This section includes the primary and secondary diagnoses documented for the Encounter. Date/Time Primary/Secondary Diagnosis Diagnosis Name Provider Source Mar 22, 2024 02:44 PM PRIMARY Other specified arthritis, left shoulder DOUG LAWTON [facility] Plan of Treatment: Future Appointments (+ 6 months) and Future Tests (+/- 45 days) The Plan of Treatment section includes future care activities for the patient from all [place] treatmentfacilities. This section includes future appointments and future orders which are active, pending or scheduled. Future Appointments This section includes appointments that were scheduled to occur 6 months from the date of the Encounter, up to a maximum of 20 appointments. The data comes from all [place] treatment facilities. Appointment Date/Time Appointment Type Appointme nt Facility Name Mar 27, 2024 08:30 AM [facility] Mar 29, 2024 08:20 AM [facility] [place] [facility] Mar 29, 2024 02:00 PM [facility] Apr 05, 2024 08:30 AM [facility] Apr 05, 2024 02:30 PM [facility] [place] [facility] Apr 18, 2024 12:30 PM [facility] [place] [facility] May 03, 2024 02:40 PM [facility] May 08, 2024 02:30 PM [facility] [place] [facility] May 09, 2024 03:40 PM [facility] [place] [facility] May 10, 2024 08:20 AM [facility]BULATORY - MEDICINE [facility] May 10, 2024 02:00 PM AMBULATORY - MEDICINE [facility] May 17, 2024 03:00 PM [facility] [place] [facility] May 18, 2024 08:20 AM AMBULATORY - MEDICINE [facility] May 30, 2024 03:15 PM [facility] [place] [facility] May 31, 2024 08:20 AM AMBULATORY - MEDICINE [facility] May 31, 2024 03:00 PM AMBULATORY - MEDICINE [facility] Jun 06, 2024 08:00 AM AMBULATORY - MEDICINE [facility] Jun 07, 2024 08:00 AM AMBULATORY - MEDICINE [facility] Jun 14, 2024 08:20 AM AMBULATORY - MEDICINE [facility] Jun 14, 2024 08:30 AM AMBULATORY - MEDICINE [facility] Lab Results: +/- 30 days of the encounter This section includes the Chemistry and Hematology Lab Results on record with [place] for the patient. Radiology Reports and Pathology Reports are provided separately, in subsequent sections. Lab Results This section contains the Chemistry/Hematology Results that were resulted 30 days before or 30 daysafter the date of the Encounter. Date/Time Source Result Type Result - Unit Interpretation Reference Range Specimen Type Comment Mar 27, 2024 08:49 AM [facility] COVID-19 SCREENING (CEPHEID) NASOPHARYNX Specimen T ype: [...] to be contagious. If requested by public health authority, specimen will be sent for additional testing. Ordering Provider: FELICE BRENNAN Report Released Date/Time: Mar 27, 2024 08:48 AM Reporting Lab: [place] [facility] [address] [place] [address] Performing Lab: [facility] [address] [place] [address] COVID-19 (Cepheid) Negative Negative Flu A(Cepheid) Negative Negative Flu B(Cepheid) Negative Negative RSV (Cepheid) Negative Negative Social History: Smoking Status (Most current) and Tobacco Use (All prior to encounter date) This section includes the most current, and the historical, smoking and tobacco- related health factors from the [place] facility where the Encounter took place. Current Smoking Status This section includes the most current smoking, or tobacco-related health factor, from the [place] facility where the Encounter took place. Date/Time Current Smoking Status Comment Facil ity January 21, 2024 10:00 AM [place]-TOBACCO FORMER USER [facility] Tobacco Use History This section includes a history of the smoking, or tobacco-related health factors, that were collected on or before the date of the Encounter. The data comes from the [place] facility where the Encounter took place. Date/Time Smoking Status/Tobacco Use Comment F acility January 21, 2024 10:00 AM UT-TOBACCO QUIT 5 TO < 15 YRS [facility] January 27, 2023 12:31 PM [place]-TOBACCO FORMER USER [facility] January 27, 2023 12:31 PM UT-TOBACCO QUIT 15 YRS OR MORE [facility] Advance Directives: All historical and current Section Date Range: From patient's date of to the date document was created. This section includes ALL of a patient's completed or amended [place] Advance and Rescinded Directives. The entries below indicate that a directive exists for the patient, but an actual copy is not included with this document. The data comes from all [facility]. Date Advance Directives Provider Source May 14, 2022 ADVANCE DIRECTIVE BERTHA NAZARIO [facility] Feb 05, 2017 ADVANCE DIRECTIVE DISCUSSION PEG SORENSEN [facility] Radiology Reports: +/- 30 days of [...] the Encounter. The data comes from all [place] treatment facilities. Date/Time Radiology Report Provider Source Apr 05, 2024 03:[address] THORAX, DIAGNOS TIC, W/CONTRAST: GERDA TEJADA [id number] -1950 F Exm Date: APR 05, 2024@15:10 Req Phys: JUAN CARLOS BRENNAN Loc: OUTSIDE PB-CT (Req'g Loc) Img Loc: OUTSIDE PB-CT Service: Unknown Screen: Patient is unable to answer or is unsure Screen Comment: OUTSIDE STUDY (Case [id number] COMPLETE) CT THORAX, DIAGNOSTIC, W/CONTRAS(CT Detailed) CPT:24122 Reason for Study: Exam imported from outside Clinical History: Original Data for Imported Study Patient Name: GERDA TEJADA Date: 1950 Sex: F Study Date: 04/05/24 Study Time: 03:10:08 Study Description: CT chest w con* [id number] Referring Physician: UNKNOWN, UNKNOWN Series 1: 2 [...] study. VERIFIED BY: / *ELECTRONICALLY FILED* [place] [facility] Mar 27, 2024 08:50 AM CHEST X-RAY, 2 VIE WS: GERDA TEJADA [id number] -1950 F Exm Date: MAR 27, 2024@08:50 Req Phys: JUAN CARLOS BRENNAN Loc: PB-MICHAEL PACT [facility] (Req'g Img Loc: PB-XRAY [place] Service: Unknown [facility] , (Case [id number] COMPLETE) CHEST X-RAY, 2 VIEWS (RAD Detailed) CPT:21601 Reason for Study: ongoing cough Clinical History: ongoig cough Report Status: Verified Date Reported: MAR 27, 2024 Date Verified: MAR 27, 2024 Ground Nuclear Weapons Assembly Officer E-Sig: Report: PA and lateral views of the chest reveal degenerative skeletal changes and minimal scoliosis. There is atherosclerotic calcification. There is mild bilateral pulmonary hyperaeration. There is no infiltrate or effusion. Heart size is normal. Impression: No acute process Primary Interpreting Staff: KIESHA SERNA, RADIOLOGIST (Ground Nuclear Weapons Assembly Officer, no e-sig) /KIESHA [facility] [place] [facility] Encounter Notes: All associated encounter notes This section contains the clinical notes associated to the Encounter. Date/Time Encounter Note(s) Provider Source Mar 22, 2024 01:54 PM PHYSICAL THERAPY N OTE: LOCAL TITLE: PHYSICAL THERAPY NOTE PB STANDARD TITLE: PHYSICAL THERAPY NOTE DATE OF NOTE: MAR 22, 2024@13:54 ENTRY DATE: MAR 22, 2024@13:54:21 AUTHOR: DOUG LAWTON COSIGNER: URGENCY: STATUS: COMPLETED Diagnosis: Other specified Arthritis, left Shoulder Subjective [place] reports that she had to assist someone that had fallen. She rates her left shoulder pain at 6/10 prior to treatment session today. Objective Therapeutic exercise: shoulder sara into flexion, scaption, abduction 2 minutes each wall slide 20x Shoulder Row with scapular retraction 20x green theraband Shoulder extension with scapular retraction 20x green theraband Shoulder internal rotation 2x10 green theraband Shoulder external rotation 2x10 green theraband supine wand flexion 20x supine wand chest press 20x supine serratus punch 20x Cryotherapy: Thermx to left shoulder for 10 minutes, 34 deg, 20 mmHg intermittent compression Assessment Mrs. Tejada was limited today with progression of therapeutic exercises secondary to reports of soreness/pain from lifting someone off of the floor. She continues to have difficulty with overhead motions and is substituting with upper trapezius with shoulder ROM. She responded well to verbal cues to minimize upper trapezius compensation. Concluded today's session with cryotherapy and compression to left shoulder with thermx. Plan Will continue to progress through her current physical therapy plan of care to address her shoulder pain. Short term goals to be achieved in weeks: 1) Patient will be (I) with home exercise. 2) Patient will decrease pain complaints by 25% or more in order to improve ADL performance. 3) Patient will increase UE strength by 1/2 grade or more overall in order to decrease pain and improve ADLs. termination clerk goals to be achieved in weeks: 1) Patient will have WNL bilateral shoulder ROM to decrease pain and improve functional mobility. 2) Patient will increase UE strength by +1 Manual Muscle Grade or more overall. 3) Patient will be decrease his QuickDASH score to 31% or lower for improved upper extremity function. Treatment Plan: Physical Therapy 1 days per week for 8 weeks. Physical therapy may include: Patient education, therapeutic exercise, therapeutic activities, manual therapy, neuromuscular reeducation, and modalities as indicated. Total Treatment Time: 50 minutes Therapeutic exercise: 40 minutes Hot/cold pack: 10 minutes Visit 2 /sarabjit/ Doug Lawton PT, DPT [place] [facility] Signed: 03/22/2024 14:44 DOUG LAWTON [place] [facility]
--- OUTSIDE RECORDS SUMMARY | 2024-03-27 03:30 | XMS_ITS | Encounter Summary ---
Author Name [facility] [place] Address [address] [place] [address] Care Team Providers Care Leaf Blender Name Role Phone JUAN CARLOS BRENNAN Primary [...] Erwin STEPHA MCR (WNR) MEDICARE ADVANTAGE MCR ([facility]) Aug 30, 2022 [id number] [phone] GERDA ARAGON PATIENT HUMANA MCR (WNR) MEDICARE ADVANTAGE MCR (WNR) Aug 30, 2022 [id number] GERDA ARAGON PATIENT MEDICARE (WNR) MEDICARE (M) PART A Jun 30, 2017 PART A [id number] GERDA ARAGON PATIENT MEDICARE (WNR) MEDICARE (M) PART B Jun 30, 2017 PART B [id number] [phone] GERDA ARAGON PATIENT MEDICARE (WNR) MEDICARE (M) PART A Jun 30, 2017 PART A [id number] GERDA ARAGON PATIENT MEDICARE (WNR) MEDICARE (M) PART B Jun 30, 2017 PART B [id number] GERDA ARAGON PATIENT WELLCARE MCR (WNR) MEDICARE ADVANTAGE [facility] (WNR) Sep 30, 2023 [id number] GERDA ARAGON PATIENT Selected Encounter This section includes the information on record at [place] for the Encounter. Date/Time Encounter Type Encounter Description Reason Provider Source Mar 27, 2024 08:30 AM OFF/OP EST DECEMBER X REQ PHY/QHP PRIMARY CARE/MEDICINE ICD-10-CM R05.1 Acute cough MERA PRECIADO [facility] Encounter Template Text not used by [place] Assessments - Encounter Diagnoses This section includes the primary and secondary diagnoses documented for the Encounter. Date/Time Primary/Secondary Diagnosis Diagnosis Name Provider Source Mar 27, 2024 09:32 AM PRIMARY Acute cough MERA PRECIADO [facility] Plan of Treatment: Future Appointments (+ 6 months) and Future Tests (+/- 45 days) The Plan of Treatment section includes future care activities for the patient from all [place] treatmentfacilities. This section includes future appointments and future orders which are active, pending or scheduled. Future Appointments This section includes appointments that were scheduled to occur 6 months from the date of the Encounter, up to a maximum of 20 appointments. The data comes from all [place] treatment facilities. Appointment Date/Time Appointment Type Appointme nt Facility Name Mar 29, 2024 08:20 AM [facility] [place] [facility] [facility] Mar 29, 2024 02:00 PM [facility] [place] [facility] Apr 05, 2024 08:30 AM [facility] [place] [facility] Apr 05, 2024 02:30 PM [facility]IC[facility] [place] [facility] Apr 18, 2024 12:30 PM [facility] [place] [facility] May 03, 2024 02:40 PM [facility] [place] [facility] May 08, 2024 02:30 PM [facility] [place] [facility] May 09, 2024 03:40 PM [facility] [place] [facility] May 10, 2024 08:20 AM [facility] [place] [facility] May 10, 2024 02:00 PM [facility] [facility] May 17, 2024 03:00 PM [facility] [place] [facility] May 18, 2024 08:20 AM [facility] [place] [facility] May 30, 2024 03:15 PM [facility]IC[facility] [place] [facility] May 31, 2024 08:20 AM [facility]ATORY - MEDICINE [facility] May 31, 2024 03:00 PM [facility] [place] [facility] Jun 06, 2024 08:00 AM [facility]ORY - MEDICINE [facility] Jun 07, 2024 08:00 AM AMBULATORY - MEDICINE [facility] Jun 14, 2024 08:20 AM AMBULATORY - MEDICINE [facility] Jun 14, 2024 08:30 AM AMBULATORY - MEDICINE [facility] Jun 15, 2024 01:40 PM [facility] Lab Results: +/- 30 days of the encounter This section includes the Chemistry and Hematology Lab Results on record with [place] for the patient. Radiology Reports and Pathology Reports are provided separately, in subsequent sections. Lab Results This section contains the Chemistry/Hematology Results that were resulted 30 days before or 30 daysafter the date of the Encounter. Date/Time Source Result Type Result - Unit Interpretation Reference Range Specimen Type Comment Mar 27, 2024 08:49 AM [facility] COVID-19 SCREENING (CEPHEID) NASOPHARYNX Specimen T [...] 2024 08:48 AM Reporting Lab: [place] [facility] [address] [place] [address] Performing Lab: [facility] [address] [place] [address] COVID-19 (Cepheid) Negative Negative Flu A(Cepheid) Negative Negative Flu B(Cepheid) Negative Negative RSV (Cepheid) Negative Negative Vital Signs: All taken on the encounter date This section contains inpatient and outpatient Vital Signs collected on the date of the Encounter. Date/Time Temperature Pulse Blood Pressure Respiratory Rate SP02 Pain Height Weight Body Mass Index Source Mar 27, 2024 08:57 AM 98.1 79 118/81 18 98 177.3 26 [facility] Social History: Smoking Status (Most current) and Tobacco Use (All prior to encounter date) This section includes the most current, and the historical, smoking and tobacco- related health factors from the [place] facility where the Encounter took place. Current Smoking Status This section includes the most current smoking, or tobacco-related health factor, from the [place] facility where the Encounter took place. Date/Time Current Smoking Status Comment Facil ity January 21, 2024 10:00 AM [place]-TOBACCO FORMER USER [facility] Tobacco Use History This section includes a history of the smoking, or tobacco-related health factors, that were collected on or before the date of the Encounter. The data comes from the [place] facility where the Encounter took place. Date/Time Smoking Status/Tobacco Use Comment F acility January 21, 2024 10:00 AM [place]-TOBACCO QUIT 5 TO < 15 YRS [facility] January 27, 2023 12:31 PM [place]-TOBACCO FORMER USER [facility] January 27, 2023 12:31 PM [place]-TOBACCO QUIT 15 YRS OR MORE [facility] Advance Directives: All historical and current Section Date Range: From patient's date of to the date document was created. This section includes ALL of a patient's completed or amended [place] Advance and Rescinded Directives. The entries below indicate that a directive exists for the patient, but an actual copy is not included with this document. The data comes from all [place] facilities. Date Advance Directives Provider Source May 14, 2022 ADVANCE DIRECTIVE BERTHA NAZARIO [facility] Feb 05, 2017 ADVANCE DIRECTIVE DISCUSSION PEG SORENSEN [facility] Radiology Reports: +/- 30 days of [...] the Encounter. The data comes from all [place] treatment facilities. Date/Time Radiology Report Provider Source Apr 05, 2024 03:[address] THORAX, DIAGNOS TIC, W/CONTRAST: GERDA ARAGON [id number] -1950 F Exm Date: APR 05, 2024@15:10 Req Phys: JUAN CARLOS BRENNAN Loc: OUTSIDE PB-CT (Req'g Loc) Img Loc: OUTSIDE PB-CT Service: Unknown Screen: Patient is unable to answer or is unsure Screen Comment: OUTSIDE STUDY (Case [id number] COMPLETE) CT THORAX, DIAGNOSTIC, W/CONTRAS(CT Detailed) CPT:72862 Reason for Study: Exam imported from outside Clinical History: Original Data for Imported Study Patient Name: GERDA ARAGON Date: 1950 Sex: F Study Date: 04/05/24 Study Time: 03:10:08 Study Description: CT chest w con* [id number] Referring Physician: UNKNOWN, UNKNOWN Series 1: 2 [...] VERIFIED BY: / *ELECTRONICALLY FILED* [place] [facility] Mar 27, 2024 08:50 AM CHEST X-RAY, 2 VIE WS: GERDA ARAGON [id number] -1950 F Exm Date: MAR 27, 2024@08:50 Req Phys: FELICE BRENNANSamara Fall Pat Loc: PB-MICHAEL PACT [facility] (Req'g Img Loc: PB-XRAY [place] Service: Unknown [facility] , (Case [id number] COMPLETE) CHEST X-RAY, 2 VIEWS (RAD Detailed) CPT:80666 Reason for Study: ongoing cough Clinical History: ongoig cough Report Status: Verified Date Reported: MAR 27, 2024 Date Verified: MAR 27, 2024 Distillation Operator Helper E-Sig: Report: PA and lateral views of the chest reveal degenerative skeletal changes and minimal scoliosis. There is atherosclerotic calcification. There is mild bilateral pulmonary hyperaeration. There is no infiltrate or effusion. Heart size is normal. Impression: No acute process Primary Interpreting Staff: KIESHA SERNA RADIOLOGIST (Distillation Operator Helper, no e-sig) /KIESHA Riggs [facility] Encounter Notes: All associated encounter notes This section contains the clinical notes associated to the Encounter. Date/Time Encounter Note(s) Provider Source Mar 27, 2024 08:57 AM NURSING PROGRESS N OTE: LOCAL TITLE: NURSING NOTE PB STANDARD TITLE: NURSING PROGRESS NOTE DATE OF NOTE: MAR 27, 2024@08:57 ENTRY DATE: MAR 27, 2024@08:57:59 AUTHOR: ROBIN PRECIADO EXP COSIGNER: URGENCY: STATUS: COMPLETED NURSING NOTE PB Has ADDENDA This is a 73 year old FEMALE with known Allergies as noted: ALBUTEROL, CODEINE, LISINOPRIL C/C: [place] reported to the clinic for ongoing cough and chest congestion S: [place] stated that she has had a harsh cough cough for over a month. 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 stated that she has a history of emphysema. denied fever. [place] stated that she has been taking singular as ordered and does use Flonase. denied sore throat. stated that does not have ear pain but does feel like her ears are full. On the following Active Medications: Active Outpatient Medications (including Supplies): Active Outpatient Medications Status 1) ACETAMINOPHEN 500MG TAB TAKE ONE TABLET BY MOUTH ACTIVE THREE TIMES A DAY NEEDED FOR PAIN CAUTION: DO NOT EXCEED 4000MG PER DAY ACETAMINOPHEN (APAP) FROM ALL MEDS. 2) ALENDRONATE 70MG TAB TAKE ONE TABLET BY MOUTH EVERY ACTIVE WEEK FOR OSTEOPOROSIS - TAKE WITH 6-8 OZ OF PLAIN WATER 30 MIN BEFORE FIRST FOOD OR OTHER MEDICATION. REMAIN UPRIGHT. 3) AMLODIPINE BESYLATE 2.5MG TAB TAKE ONE TABLET BY ACTIVE MOUTH ONCE A DAY FOR HIGH BLOOD PRESSURE 4) CYCLOBENZAPRINE HCL 10MG TAB TAKE ONE TABLET BY MOUTH ACTIVE TWICE DAILY NEEDED FOR MUSCLE SPASM MAY CAUSE DROWSINESS. DO NOT DRINK ALCOHOL WHILE TAKING THIS MEDICATION. 5) INDOMETHACIN 25MG CAP TAKE ONE CAPSULE BY MOUTH TWICE ACTIVE A DAY FOR OSTEOARTHRITIS (TAKE WITH FOOD) 6) MECLIZINE HCL 25MG CHEW TAB CHEW AND SWALLOW ONE ACTIVE TABLET BY MOUTH THREE TIMES A DAY NEEDED FOR VERTIGO CHEWABLE TABLETS MAY BE CHEWED OR SWALLOWED WHOLE. MAY CAUSE DROWSINESS. 7) MONTELUKAST NA 10MG TAB TAKE ONE TABLET BY MOUTH ACTIVE EVERY EVENING FOR ASTHMA 8) ONDANSETRON HCL 8MG TAB TAKE ONE-HALF TABLET BY MOUTH ACTIVE ONCE A DAY NEEDED FOR NAUSEA/VOMITING 9) POISE PAD,MODERATE ABSORBENCY USE/APPLY 1 PAD TO ACTIVE AFFECTED AREA(S) THREE TIMES A DAY FOR INCONTINENCE - FEMALES ONLY 10) VENLAFAXINE HCL 75MG 24HR SA CAP TAKE ONE CAPSULE BY ACTIVE MOUTH ONCE A DAY FOR DEPRESSION WITH FOOD. DO NOT ABRUPTLY DISCONTINUE MEDICATION. Active Non-VA Medications Status 1) Non-VA CEPHALEXIN 500MG CAP 500MG BY MOUTH EVERY 6 ACTIVE HOURS 11 Total Medications O: [place] ambulated into the clinic without assistance. Steady gait. Alert and oriented x4. Unlabored breathing. Lungs clear throughout bilaterally. Throat redness noted. Bilateral fluid in ears. A/P: Reviewed with Provider. Chest Xray ordered. Covid test ordered. Provider reviewed imaging. Provider gave hand written script for Doxycyline 100mg 1 BID for 5 days. [place] advised t complete medication as prescribed and if symptoms have not improved to report back to the clinic for PCP follow up [place] voiced understanding. advised that it is time for follow up lung CT scan. stated that she would like to have the CT scan at [facility] in [place]. [place] advised that she will come back for labs for CT scan. [place] escorted to the lobby in stable condition. RTC: as needed /sarabjit/ Robin Preciado RN [facility], [facility] Signed: 03/27/2024 09:32 Receipt Acknowledged By: 03/27/2024 18:09 /sarabjit/ [facility]24 ADDENDUM STATUS: COMPLETED Per [facility] Directive 1605.06, wristband documentation: Patient wristband was removed and destroyed by (staff name) RAJNI Youssef and placed in the designated [employer] bin. /sarabjit/ Robin Preciado RN [place] [facility], [facility] Signed: 03/27/2024 09:33 ROBIN PRECIADO [facility]
--- OUTSIDE RECORDS SUMMARY | 2024-03-29 03:20 | XMS_ITS ---
Author Name [facility] [facility] [place] [facility] [place] Address [address] [place] [address] Care Team Providers Care Punch Press Feeder Name Role Phone JUAN CARLOS BRENNAN Primary [...] Member ID Insurance Provider's Telephone Number Policy Rewin's Name Patient's Relationship to Policy Erwin STEPHA MCR (WNR) MEDICARE ADVANTAGE MCR (WNR) Aug 30, 2022 [id number] GERDA ARAGON PATIENT HUMANA MCR (WNR) MEDICARE ADVANTAGE MCR (WNR) Aug 30, 2022 [id number] [phone] GERDA ARAGON PATIENT MEDICARE (WNR) MEDICARE (M) PART A Jun 30, 2017 PART A [id number] GERDA ARAGON PATIENT MEDICARE (WNR) MEDICARE (M) PART B Jun 30, 2017 PART B [id number] GERDA ARAGON PATIENT MEDICARE (WNR) MEDICARE (M) PART A Jun 30, 2017 PART A [id number] GERDA ARAGON PATIENT MEDICARE (WNR) MEDICARE (M) PART B Jun 30, 2017 PART B [id number] GERDA ARAGON PATIENT [facility] (WNR) MEDICARE ADVANTAGE [facility] (WNR) Sep 30, 2023 [id number] [phone] GERDA ARAGON PATIENT Selected Encounter This section includes the information on record at [place] for the Encounter. 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 Date/Time Primary/Secondary Diagnosis Diagnosis Name Provider Source Mar 29, 2024 08:42 AM PRIMARY Segmental and somatic dysfunction of cervical region MORRIS RICH E [place] [facility] Mar 29, 2024 08:42 AM SECONDARY Cervicalgia MORRIS RICH [place] [facility] Mar 29, 2024 08:42 AM SECONDARY Other intervertebral disc degeneration, lumbosacral region MORRIS RICH E [place] [facility] Mar 29, 2024 08:42 AM SECONDARY Pain in thoracic spine MORRIS RICH [place] [facility] Mar 29, 2024 08:42 AM SECONDARY Segmental and somatic dysfunction of lumbar region MORRIS RICH E [place] [facility] Mar 29, 2024 08:42 AM SECONDARY Segmental and somatic dysfunction of pelvic region MORRIS RICH E [place] [facility] Mar 29, 2024 08:42 AM SECONDARY Segmental and somatic dysfunction of thoracic region MORRIS RICH [place] [facility] Plan of Treatment: Future Appointments (+ 6 months) and Future Tests (+/- 45 days) The Plan of Treatment section includes future care activities for the patient from all [place] treatmentfacilities. This section includes future appointments and future orders which are active, pending or scheduled. Future Appointments This section includes appointments that were scheduled to occur 6 months from the date of the Encounter, up to a maximum of 20 appointments. The data comes from all [place] treatment facilities. Appointment Date/Time Appointment Type Appointme nt Facility Name Apr 05, 2024 08:30 AM [facility] Apr 05, 2024 02:30 PM [facility] [place] [facility] Apr 18, 2024 12:30 PM [facility] [place] [facility] May 03, 2024 02:40 PM [facility] May 08, 2024 02:30 PM [facility] May 09, 2024 03:40 PM [facility] May 10, 2024 08:20 AM [facility] May 10, 2024 02:00 PM [facility] May 17, 2024 03:00 PM [facility] May 18, 2024 08:20 AM [facility] May 30, 2024 03:15 PM [facility] [place] [facility] May 31, 2024 08:20 AM [facility] May 31, 2024 03:00 PM [facility] Jun 06, 2024 08:00 AM [facility] Jun 07, 2024 08:00 AM [facility] Jun 14, 2024 08:20 AM [facility] Jun 14, 2024 08:30 AM [facility] Jun 15, 2024 01:40 PM [facility] - [facility] [place] [facility] Jun 16, 2024 09:00 AM [facility] Jun 21, 2024 01:40 PM [facility] MEDICINE [facility] Lab Results: +/- 30 days of the encounter This section includes the Chemistry and Hematology Lab Results on record with [place] for the patient. Radiology Reports and Pathology Reports are provided separately, in subsequent sections. Lab Results This section contains the Chemistry/Hematology Results that were resulted 30 days before or 30 daysafter the date of the Encounter. Date/Time Source Result Type Result - Unit Interpretation Reference Range Specimen Type Comment Mar 27, 2024 08:49 AM [facility] COVID-19 SCREENING (CEPHEID) NASOPHARYNX Specimen [...] to be contagious. If requested by public [facility] authority, specimen will be sent for additional testing. Ordering Provider: FELICE BRENNAN Report Released Date/Time: Mar 27, 2024 08:48 AM Reporting Lab: [place] [facility] [address] [facility] [id number] Performing Lab: [place] [facility] [address] [facility] [id number] COVID-19 (Cepheid) Negative Negative Flu A(Cepheid) Negative Negative Flu B(Cepheid) Negative Negative RSV (Cepheid) Negative Negative Advance Directives: All historical and current Section Date Range: From patient's date of to the date document was created. This section includes ALL of a patient's completed or amended [place] Advance and Rescinded Directives. The entries below indicate that a directive exists for the patient, but an actual copy is not included with this document. The data comes from all [facility]. Date Advance Directives Provider Source May 14, 2022 ADVANCE DIRECTIVE BERTHA NAZARIO [facility] Feb 05, 2017 ADVANCE DIRECTIVE DISCUSSION PEG SORENSEN [facility] Radiology Reports: +/- 30 days [...] the Encounter. The data comes from all [place] treatment facilities. Date/Time Radiology Report Provider Source Apr 05, 2024 03:[address] THORAX, DIAGNOS TIC, W/CONTRAST: GERDA ARAGON [id number] -1950 F Exm Date: APR 05, 2024@15:10 Req Phys: JUAN CARLOS BRENNAN Loc: OUTSIDE PB-CT (Req'g Loc) Img Loc: OUTSIDE PB-CT Service: Unknown Screen: Patient is unable to answer or is unsure Screen Comment: OUTSIDE STUDY (Case [id number] COMPLETE) CT THORAX, DIAGNOSTIC, W/CONTRAS(CT Detailed) CPT:60890 Reason for Study: Exam imported from outside Clinical History: Original Data for Imported Study Patient Name: GERDA ARAGON Date: 1950 Sex: F Study Date: 04/05/24 Study Time: 03:10:08 Study Description: CT chest w con* [id number] Referring Physician: UNKNOWN, UNKNOWN Series 1: 2 [...] VERIFIED BY: / *ELECTRONICALLY FILED* [place] [facility] Mar 27, 2024 08:50 AM CHEST X-RAY, 2 VIE WS: GERDA ARAGON [id number] -1950 F Exm Date: MAR 27, 2024@08:50 Req Phys: JUAN CARLOS BRENNAN Loc: PB-MICHAEL PACT [facility] (Req'g Img Loc: PB-XRAY [place] Service: Unknown [facility] , (Case [id number] COMPLETE) CHEST X-RAY, 2 VIEWS (RAD Detailed) CPT:05865 Reason for Study: ongoing cough Clinical History: ongoig cough Report Status: Verified Date Reported: MAR 27, 2024 Date Verified: MAR 27, 2024 Outpatient Services Director E-Sig: Report: PA and lateral views of the chest reveal degenerative skeletal changes and minimal scoliosis. There is atherosclerotic calcification. There is mild bilateral pulmonary hyperaeration. There is no infiltrate or effusion. Heart size is normal. Impression: No acute process Primary Interpreting Staff: KIESHA SERNA, RADIOLOGIST (Outpatient Services Director, no e-sig) /KIESHA Riggs [facility] Encounter Notes: All associated encounter notes This section contains the clinical notes associated to the Encounter. Date/Time Encounter Note(s) Provider Source Mar 29, 2024 08:28 AM CHIROPRACTIC NOTE: LOCAL TITLE: CHIROPRACTIC FOLLOW UP NOTE PB STANDARD TITLE: CHIROPRACTIC NOTE DATE OF NOTE: MAR 29, 2024@08:28 ENTRY DATE: MAR 29, 2024@08:28:40 AUTHOR: MORRIS RICH COSIGNER: URGENCY: STATUS: COMPLETED CHIROPRACTIC FOLLOW-UP VISIT Patient's language preference for health information: Vietnamese Other Communication Methods Needed: SUBJECTIVE: The is a 73 year old FEMALE being seen in the Chiropractic clinic for follow-up visit. The Arroyo states her right lower back continues to be very painful, making ADLs difficult, such as sleeping. The reports 1-2 days of relief following her last adjustment. Today, the rates her pain level as [...] restricted in all planes of motion. The Arroyo experience pain with the restricted AROM. LUMBAR/THORACIC SPINE: MOVEMENT/POSTURE: The ambulates without issue. SEGMENTAL DYSFUNCTION: Joint dysfunction [...] associated myofascial pain. PLAN: This is the final follow up treatment for the of a planned six treatments. Due to persistent neck and back pain, we will treat The 1x per week for 6 additional weeks. Prognosis: Fair Today's treatment of the [...] exercise program and to commit to a hotel room attendant exercise plan. /sarabjit/ [facility] Signed: 03/29/2024 08:41 MORRIS RICH
--- OUTSIDE RECORDS SUMMARY | 2024-03-29 09:00 | XMS_ITS | Encounter Summary ---
Author Name [facility] [place] Address [address] [place] [address] Care Team Providers Care Sternman Name Role Phone JUAN CARLOS BRENNAN Primary [...] MEDICARE ADVANTAGE MCR (WNR) Aug 30, 2022 [id number] GERDA ARAGON PATIENT HUMANA MCR (WNR) MEDICARE ADVANTAGE MCR (WNR) Aug 30, 2022 [id number] [phone] GERDA ARAGON PATIENT MEDICARE (WNR) MEDICARE (M) PART A Jun 30, 2017 PART A [id number] GERDA ARAGON PATIENT MEDICARE (WNR) MEDICARE (M) PART B Jun 30, 2017 PART B [id number] GERDA ARAGON PATIENT MEDICARE (WNR) MEDICARE (M) PART A Jun 30, 2017 PART A [id number] GERDA ARAGON PATIENT MEDICARE (WNR) MEDICARE (M) PART B Jun 30, 2017 PART B [id number] GERDA ARAGON PATIENT [facility] (WNR) MEDICARE ADVANTAGE [facility] (WNR) Sep 30, 2023 [id number] GERDA ARAGON PATIENT Selected Encounter This section includes the information on record at [place] for the Encounter. Date/Time Encounter Type Encounter Description Reason Provider Source Mar 29, 2024 02:00 PM HOT OR COLD PACKS THERAPY PHYSICAL THERAPY ICD-10-CM M13.812 Other specified arthritis, left shoulder JONATHAN LAWTON [facility] Encounter Template Text not used by [place] Assessments - Encounter Diagnoses This section includes the primary and secondary diagnoses documented for the Encounter. Date/Time Primary/Secondary Diagnosis Diagnosis Name Provider Source Mar 29, 2024 02:52 PM PRIMARY Other specified arthritis, left shoulder DOUG LAWTON [facility] Plan of Treatment: Future Appointments (+ 6 [...] 05, 2024 08:30 AM [facility] Apr 05, 2024 02:30 PM [facility] - [place] [facility] Apr 18, 2024 12:30 PM [facility] [place] [facility] May 03, 2024 02:40 PM [facility] May 08, 2024 02:30 PM [facility] May 09, 2024 03:40 PM [facility] [place] [facility] [place] [facility] May 10, 2024 08:20 AM [facility] May 10, 2024 02:00 PM [facility] May 17, 2024 03:00 PM [facility] May 18, 2024 08:20 AM [facility] - MEDICINE [facility] May 30, 2024 03:15 PM AM[facility]ORY - MEDICINE [place] [facility] May 31, 2024 08:20 AM [facility] [place] [facility] May 31, 2024 03:00 PM [facility] - MEDICINE [facility] Jun 06, 2024 08:00 AM AMBULATORY - MEDICINE [facility] Jun 07, 2024 08:00 AM AMBULATORY - MEDICINE [facility] Jun 14, 2024 08:20 AM AMBULATORY - MEDICINE [facility] Jun 14, 2024 08:30 AM AMBULATORY - MEDICINE [facility] Jun 15, 2024 01:40 PM AMBULATORY - MEDICINE [place] [facility] Jun 16, 2024 09:00 AM AMBULATORY - MEDICINE [facility] Jun 21, 2024 01:40 PM AMBULATORY - MEDICINE [facility] Lab Results: +/- 30 days [...] Type Comment Mar 27, 2024 08:49 AM [facility] COVID-19 SCREENING (CEPHEID) NASOPHARYNX Specimen T ype: [...] 2024 08:48 AM Reporting Lab: [place] [facility] [address] [place] [id number] Performing Lab: EVERT SANTIAGO [facility] [address] [place] [id number] COVID-19 (Cepheid) Negative Negative Flu A(Cepheid) Negative Negative Flu B(Cepheid) Negative Negative RSV (Cepheid) Negative Negative Vital Signs: All taken on the encounter date This section contains inpatient and outpatient Vital Signs collected on the date of the Encounter. Date/Time Temperature Pulse Blood Pressure Respiratory Rate SP02 Pain Height Weight Body Mass Index Source Mar 29, 2024 08:20 AM 98 80 116/83 [facility] Social History: Smoking Status (Most current) and [...] 21, 2024 10:00 AM [place]-TOBACCO FORMER USER [facility] Tobacco Use History This section includes a history of the smoking, or tobacco-related health factors, that were collected on or before the date of the Encounter. The data comes from the [place] facility where the Encounter took place. Date/Time Smoking Status/Tobacco Use Comment F acility January 21, 2024 10:00 AM [place]-TOBACCO QUIT 5 TO < 15 YRS [facility] January 27, 2023 12:31 PM [place]-TOBACCO FORMER USER [facility] January 27, 2023 12:31 PM VA-TOBACCO QUIT 15 YRS OR MORE [facility] Advance Directives: All historical and current Section [...] May 14, 2022 ADVANCE DIRECTIVE BERTHA NAZARIO [facility] Feb 05, 2017 ADVANCE DIRECTIVE DISCUSSION PEG SORENSEN [facility] Radiology Reports: +/- 30 days [...] CT THORAX, DIAGNOS TIC, W/CONTRAST: GERDA ARAGON [id number] -1950 F Exm Date: APR 05, 2024@15:10 Req Phys: JUAN CARLOS BRENNAN Loc: OUTSIDE PB-CT (Req'g Loc) Img Loc: OUTSIDE PB-CT Service: Unknown Screen: Patient is unable to answer or is unsure Screen Comment: OUTSIDE STUDY (Case [id number] COMPLETE) CT THORAX, DIAGNOSTIC, W/CONTRAS(CT Detailed) CPT:85182 Reason for Study: Exam imported from outside Clinical History: Original Data for Imported Study Patient Name: GERDA ARAGON Date: 1950 Sex: F Study Date: 04/05/24 Study Time: 03:10:08 Study Description: CT chest w con* [id number] Referring Physician: UNKNOWN, UNKNOWN Series 1: 2 [...] outside study. VERIFIED BY: / *ELECTRONICALLY FILED* EVERT SANTIAGO [facility] Mar 27, 2024 08:50 AM CHEST X-RAY, 2 VIE WS: GERDA ARAGON [id number] -1950 F Exm Date: MAR 27, 2024@08:50 Req Phys: MIKAJUAN CARLOS R Pat Loc: PB-MICHAEL PACT [place] [facility] (Req'g Img Loc: PB-XRAY [place] Service: Unknown [facility] , (Case [id number] COMPLETE) CHEST X-RAY, 2 VIEWS (RAD Detailed) CPT:32975 Reason for Study: ongoing cough Clinical History: ongoig cough Report Status: Verified Date Reported: MAR 27, 2024 Date Verified: MAR 27, 2024 Payroll Manager E-Sig: Report: PA and lateral views of the chest reveal degenerative skeletal changes and minimal scoliosis. There is atherosclerotic calcification. There is mild bilateral pulmonary hyperaeration. There is no infiltrate or effusion. Heart size is normal. Impression: No acute process Primary Interpreting Staff: KIESHA SERNA RADIOLOGIST (Payroll Manager, no e-sig) /KIESHA [facility]gs [place] [facility] Encounter Notes: All associated encounter notes This section contains the clinical notes associated to the Encounter. Date/Time Encounter Note(s) Provider Source Mar 29, 2024 02:01 PM PHYSICAL THERAPY N OTE: LOCAL TITLE: PHYSICAL THERAPY NOTE STANDARD TITLE: PHYSICAL THERAPY NOTE DATE OF NOTE: MAR 29, 2024@14:01 ENTRY DATE: MAR 29, 2024@14:01:34 AUTHOR: DOUG LAWTON COSIGNER: URGENCY: STATUS: COMPLETED Diagnosis: Other specified Arthritis, left Shoulder Subjective reports that she had to assist someone that had fallen. She rates her left shoulder pain at 6/10 prior to treatment session today. Objective Therapeutic exercise: shoulder sara into flexion, scaption, abduction 3 minutes each wall slide flexion and abduction 20x each Shoulder Row with scapular retraction 20x green theraband Shoulder extension with scapular retraction 20x green theraband Shoulder internal rotation 2x15 green theraband Shoulder external rotation 2x15 green theraband shoulder flexion to 90 degrees 2x10 0 lbs. Sholder press 10x supine wand flexion 30x supine wand chest press 30x supine serratus punch 30x 2 lbs. Cryotherapy: Thermx to left shoulder for 10 minutes, 34 deg, 20 mmHg intermittent compression Assessment Reyes was able to progress with therapeutic exercises for improved shoulder ROM, strength and function. Attempted shoulder abduction to 90 degrees, but exercise was held secondary to reports of crepitus and increased symptoms. All exercises were kept to veterans tolerance. Plan Will continue to progress through her [...] order to decrease pain and improve ADLs. ocean transportation intermediary goals to be achieved in weeks: 1) [...] and modalities as indicated. Total Treatment Time: 48 minutes Therapeutic exercise: 38 minutes Hot/cold pack: 10 minutes Visit /sarabjit/ Doug Lawton, PT, DPT [facility] Signed: 03/29/2024 14:52 DOUG LAWTON ID [facility]
--- OUTSIDE RECORDS SUMMARY | 2024-04-05 03:30 | XMS_ITS | Encounter Summary ---
Author Name [facility] [place] [facility] [place] [facility] [place] Address [address] [place] [address] Care Team Providers Care Inspector Purchased Parts Name Role Phone JUAN CARLOS BRENNAN Primary [...] Erwin STEPHA MCR (WNR) MEDICARE ADVANTAGE MCR ([facility]) Aug 30, 2022 [id number] MARICHUY ARAGON PATIENT HUMANA MCR (WNR) MEDICARE ADVANTAGE MCR (WNR) Aug 30, 2022 [id number] MARICHUY ARAGON PATIENT MEDICARE (WNR) MEDICARE (M) PART A Jun 30, 2017 PART A [id number] MARICHUY ARAGON PATIENT MEDICARE (WNR) MEDICARE (M) PART B Jun 30, 2017 PART B [id number] MARICHUY ARAGON PATIENT MEDICARE (WNR) MEDICARE (M) PART A Jun 30, 2017 PART A [id number] MARICHUY ARAGON PATIENT MEDICARE (WNR) MEDICARE (M) PART B Jun 30, 2017 PART B [id number] MARICHUY ARAGON PATIENT WELLCARE MCR (WNR) MEDICARE ADVANTAGE [facility] (WNR) Sep 30, 2023 [id number] [phone] MARICHUY ARAGON PATIENT Selected Encounter This section includes the information on record at [place] for the Encounter. Date/Time Encounter Type Encounter Description Reason Provider Source Apr 05, 2024 08:30 AM OFF/OP EST DECEMBER X REQ PHY/QHP PRIMARY CARE/MEDICINE ICD-10-CM B86 KATHY Gardner Samara Encounter Template Text not used by [place] Assessments - Encounter Diagnoses This section includes the primary and secondary diagnoses documented for the Encounter. Date/Time Primary/Secondary Diagnosis Diagnosis Name Provider Source Apr 05, 2024 09:23 AM PRIMARY MERA Gardner [facility] Plan of Treatment: Future Appointments (+ 6 months) and Future Tests (+/- 45 days) The Plan of Treatment section includes future care activities for the patient from all [place] treatmentfacilities. This section includes future appointments and future orders which are active, pending or scheduled. Future Appointments This section includes appointments that were scheduled to occur 6 months from the date of the Encounter, up to a maximum of 20 appointments. The data comes from all [place] treatment facilities. Appointment Date/Time Appointment Type Appointme nt Facility Name Apr 18, 2024 12:30 PM AMBULATORY - [place]IC[place] [facility] May 03, 2024 02:40 PM [facility] [place] [facility] [facility] May 08, 2024 02:30 PM [facility] [place] [facility] [place] [facility] May 09, 2024 03:40 PM [facility] [place] [facility] May 10, 2024 08:20 AM [facility] [place] [facility] [place] [facility] May 10, 2024 02:00 PM [facility] [place] [facility] [place] [facility] May 17, 2024 03:00 PM [facility]BULATORY - MEDICINE [facility] May 18, 2024 08:20 AM AMBULATORY - MEDICINE [facility] May 30, 2024 03:15 PM [place] [place] [facility] May 31, 2024 08:20 AM [facility] [place] [facility] [place] [facility] May 31, 2024 03:00 PM [facility] [place] [facility] [place] [facility] Jun 06, 2024 08:00 AM [facility] [place] [facility] [place] [facility] Jun 07, 2024 08:00 AM [facility]BULATORY - MEDICINE [facility] Jun 14, 2024 08:20 AM AMBULATORY - MEDICINE [facility] Jun 14, 2024 08:30 AM AMBULATORY - MEDICINE [facility] Jun 15, 2024 01:40 PM [facility] [place] [facility] Jun 16, 2024 09:00 AM AMBULATORY - MEDICINE [facility] Jun 21, 2024 01:40 PM [facility] [place] [facility] [place] [facility] Jul 05, 2024 09:40 AM [facility]BULATORY - MEDICINE [facility] Jul 17, 2024 11:00 AM AMBULATORY - MEDICINE [facility] Lab Results: +/- 30 days of the encounter This section includes the Chemistry and Hematology Lab Results on record with [place] for the patient. Radiology Reports and Pathology Reports are provided separately, in subsequent sections. Lab Results This section contains the Chemistry/Hematology Results that were resulted 30 days before or 30 daysafter the date of the Encounter. Date/Time Source Result Type Result - Unit Interpretation Reference Range Specimen Type Comment Mar 27, 2024 08:49 AM [facility] COVID-19 SCREENING (CEPHEID) NASOPHARYNX Specimen T ype: [...] 08:48 AM Reporting Lab: [place] [facility] [address] [place] [address] Performing Lab: EVERT SANTIAGO [facility] [address] [place] [address] COVID-19 (Cepheid) Negative Negative Flu A(Cepheid) Negative Negative Flu B(Cepheid) Negative Negative RSV (Cepheid) Negative Negative Vital Signs: All taken on the encounter date This section contains inpatient and outpatient Vital Signs collected on the date of the Encounter. Date/Time Temperature Pulse Blood Pressure Respiratory Rate SP02 Pain Height Weight Body Mass Index Source Apr 05, 2024 08:57 AM 98.9 82 130/88 18 98 178.1 26 [facility] Social History: Smoking Status (Most current) and Tobacco Use (All prior to encounter date) This section includes the most current, and the historical, smoking and tobacco- related health factors from the [place] facility where the Encounter took place. Current Smoking Status This section includes the most current smoking, or tobacco-related health factor, from the [place] facility where the Encounter took place. Date/Time Current Smoking Status Comment Facil ity January 21, 2024 10:00 AM VA-TOBACCO FORMER USER [facility] Tobacco Use History This section includes a history of the smoking, or tobacco-related health factors, that were collected on or before the date of the Encounter. The data comes from the [place] facility where the Encounter took place. Date/Time Smoking Status/Tobacco Use Comment F acility January 21, 2024 10:00 AM [place]AC[place] QU[place] 5 TO < 15 YRS [facility] January 27, 2023 12:31 PM VA-TOBACCO FORMER USER [facility] January 27, 2023 12:31 PM VA-TOBACCO QUIT 15 YRS OR MORE [facility] Advance Directives: All historical and current Section Date Range: From patient's date of to the date document was created. This section includes ALL of a patient's completed or amended [place] Advance and Rescinded Directives. The entries below indicate that a directive exists for the patient, but an actual copy is not included with this document. The data comes from all [place] facilities. Date Advance Directives Provider Source May 14, 2022 ADVANCE DIRECTIVE BERTHA NAZARIO [facility] Feb 05, 2017 ADVANCE DIRECTIVE DISCUSSION PEG SORENSEN [facility] Radiology Reports: +/- 30 days of the [...] the Encounter. The data comes from all [place] treatment facilities. Date/Time Radiology Report Provider Source Apr 05, 2024 03:[address] THORAX, DIAGNOS TIC, W/CONTRAST: MARICHUY ARAGON [id number] -1950 F Exm Date: APR 05, 2024@15:10 Req Phys: JUAN CARLOS BRENNAN Loc: OUTSIDE PB-CT (Req'g Loc) Img Loc: OUTSIDE PB-CT Service: Unknown Screen: Patient is unable to answer or is unsure Screen Comment: OUTSIDE STUDY (Case [id number] COMPLETE) CT THORAX, DIAGNOSTIC, W/CONTRAS(CT Detailed) CPT:09791 Reason for Study: Exam imported from outside Clinical History: Original Data for Imported Study Patient Name: MARICHUY ARAGON Date: 1950 Sex: F Study Date: 04/05/24 Study Time: 03:10:08 Study Description: CT chest w con* [id number] Referring Physician: UNKNOWN, UNKNOWN Series 1: 2 [...] study. VERIFIED BY: / *ELECTRONICALLY FILED* EVERT [place] [facility] Mar 27, 2024 08:50 AM CHEST X-RAY, 2 VIE WS: MARICHUY ARAGON [id number] -1950 F Exm Date: MAR 27, 2024@08:50 Req Phys: JUAN CARLOS BRENNAN Loc: PB-MICHAEL PACT [place] (Req'g Img Loc: PB-XRAY [place] Service: Unknown [facility] , (Case [id number] COMPLETE) CHEST X-RAY, 2 VIEWS (RAD Detailed) CPT:47599 Reason for Study: ongoing cough Clinical History: ongoig cough Report Status: Verified Date Reported: MAR 27, 2024 Date Verified: MAR 27, 2024 Auto Repair Shop Manager E-Sig: Report: PA and lateral views of the chest reveal degenerative skeletal changes and minimal scoliosis. There is atherosclerotic calcification. There is mild bilateral pulmonary hyperaeration. There is no infiltrate or effusion. Heart size is normal. Impression: No acute process Primary Interpreting Staff: KIESHA SERNA, RADIOLOGIST (Auto Repair Shop Manager, no e-sig) /KIESHA Riggs [facility] Encounter Notes: All associated encounter notes This section contains the clinical notes associated to the Encounter. Date/Time Encounter Note(s) Provider Source May 03, 2024 03:37 PM ADDENDUM: LOCAL TITLE: Addendum STANDARD TITLE: ADDENDUM DATE OF NOTE: MAY 03, 2024@15:37:36 ENTRY DATE: MAY 03, 2024@15:37:37 AUTHOR: ROBIN PRECIADO RE EXP COSIGNER: URGENCY: STATUS: COMPLETED requesting Lidocaine patches be sent to her via mail. stated that she is having bilateral arm pain and has spoke with Provider in the past about this pain and is going to make an appt with PCP. /sarabjit/ Robin Preciado RN [place] BAR[place]RA, JP [facility] Signed: 05/03/2024 15:42 Receipt Acknowledged By: 05/04/2024 11:54 /sarabjit/ KVNG Cox-MAGI [place], [facility] --- Original Document --- 05/03/24 NURSING NOTE PB: contacted clinic stating that she has an ongoing cough for one week that has not improved with singular and Flonase. stated that she coughs up thick white/martínez phlegm. Waller stated that she took a home covid test and it was negative. I advised that I recommend Waller to take Mucinex to help with the cough and to ensure to drink plenty of water to keep secretions thin. I advised Waller that I will alert Provider and contact her back with recommendations. Waller voiced understanding. /sarabjit/ Robin Preciado RN [place] BAR[place]RA [facility] Signed: 05/03/2024 15:34 Receipt Acknowledged By: 05/03/2024 19:09 /ISAURA Blake [facility] 05/03/2024 ADDENDUM STATUS: COMPLETED Attempted to contact Waller to advise her that the Provider called out Doxycycline to [facility] ([place]), No answer. Left VM. /RAJNI Toribio [place]LE [facility] Signed: 05/03/2024 15:37 ROBIN PRECIADO May 03, 2024 03:26 PM GENERAL MEDICINE N OTE: LOCAL TITLE: General Note PB STANDARD TITLE: GENERAL MEDICINE NOTE DATE OF NOTE: MAY 03, 2024@15:26 ENTRY DATE: MAY 03, 2024@15:26:10 AUTHOR: JUAN CARLOS BRENNAN EXP COSIGNER: URGENCY: STATUS: COMPLETED Doxycycline 100mg one po bid for 5 days #10 0 refills called to [facility] on the immediate need benefit plan. Please fax form. /ISAURA Blake [facility] Signed: 05/03/2024 15:27 Receipt Acknowledged By: 05/03/2024 15:37 /RAJNI Toribio [place]LE [facility] JUAN CARLOS BRENNAN May 03, 2024 10:00 AM NURSING PROGRESS N OTE: LOCAL TITLE: NURSING NOTE PB STANDARD TITLE: NURSING PROGRESS NOTE DATE OF NOTE: MAY 03, 2024@10:00 ENTRY DATE: MAY 03, 2024@15:29:21 AUTHOR: ROBIN PRECIADO EXP COSIGNER: URGENCY: STATUS: COMPLETED NURSING NOTE PB Has ADDENDA Waller contacted clinic stating that she has an ongoing cough for one week that has not improved with singular and Flonase. stated that she coughs up thick white/martínez phlegm. stated that she took a home covid test and it was negative. I advised that I recommend Waller to take Mucinex to help with the cough and to ensure to drink plenty of water to keep secretions thin. I advised that I will alert Provider and contact her back with recommendations. voiced understanding. /sarabjit/ Robin Preciado RN [facility], [facility] Signed: 05/03/2024 15:34 Receipt Acknowledged By: 05/03/2024 19:09 /sarabjit/ Juan Carlos Brennan [facility] 05/03/2024 ADDENDUM STATUS: COMPLETED Attempted to contact to advise her that the Provider called out Doxycycline to [facility] ([place]), No answer. Left VM. /sarabjit/ Robin Preciado RN [facility], [facility] Signed: 05/03/2024 15:37 05/03/2024 ADDENDUM STATUS: COMPLETED Waller requesting Lidocaine patches be sent to her via mail. stated that she is having bilateral arm pain and has spoke with Provider in the past about this pain and is going to make an appt with PCP. /sarabjit/ Robin Preciado RN [facility], [facility] Signed: 05/03/2024 15:42 Receipt Acknowledged By: * AWAITING SIGNATURE * JUAN CARLOS BRENNAN JEANNIE RENEE [facility] Apr 06, 2024 01:47 PM PHYSICIAN LETTERS: LOCAL TITLE: TEST RESULT GENERAL LETTER STL STANDARD TITLE: PHYSICIAN LETTERS DATE OF NOTE: APR 06, 2024@13:47 ENTRY DATE: APR 06, 2024@13:47:09 AUTHOR: JUAN CARLOS BRENNAN EXP COSIGNER: URGENCY: STATUS: COMPLETED [facility] [address] [place] [address] APR 06, 2024 MARICHUY ARAGON [address] [place], [place] [id number] Dear Marichuy Aragon, I would like to update you on your recent test results. OTHER TEST RESULTS RADIOLOGY (NON-INVASIVE TEST RESULTS): CT scan of the Chest: 1. No pulmonary mass or nodule identified. 2. Mild atherosclerosis aorta. 3. Mild pulmonary hyperexpansion. FUTURE APPOINTMENTS: 04/18/2024 12:30 COM CARE-ORTHOPEDICS [id number] 05/10/2024 08:20 PB-MICHAEL CHIRO 05/10/2024 14:00 PB-MICHAEL PT 05/17/2024 15:00 PB-MICHAEL PT 05/18/2024 08:20 PB-MICHAEL CHIRO 05/24/2024 15:00 PB-MICHAEL PT 05/25/2024 08:40 PB-MICHAEL CHIRO 05/31/2024 08:20 PB-MICHAEL CHIRO 05/31/2024 14:00 PB-MICHAEL PT 05/31/2024 15:00 PB-MICHAEL PT 06/07/2024 08:20 PB-MICHAEL CHIRO 06/14/2024 08:20 PB-MICHAEL CHIRO 10/02/2024 11:00 COM CARE-RHEUMATOLOGY [id number] Sincerely, Juan Carlos Brennan, [facility], [facility],JUAN CARLOS AIKEN [facility] Apr 05, 2024 08:58 AM NURSING PROGRESS N OTE: LOCAL TITLE: NURSING NOTE PB STANDARD TITLE: NURSING PROGRESS NOTE DATE OF NOTE: APR 05, 2024@08:58 ENTRY DATE: APR 05, 2024@08:58:28 AUTHOR: ROBIN PRECIADO EXP COSIGNER: URGENCY: STATUS: COMPLETED This is a 73 year old FEMALE with known Allergies as noted: ALBUTEROL, CODEINE, LISINOPRIL C/C: Waller reported to the clinic for bites between toes and up lower legs S: Waller stated that her is being treated for scabies. stated that they have staying away from each other. She stated that she is not sure where they came from. On the following Active Medications: Active Outpatient [...] A DAY FOR HIGH BLOOD PRESSURE 4) INDOMETHACIN 25MG CAP TAKE ONE CAPSULE BY MOUTH TWICE ACTIVE A DAY FOR OSTEOARTHRITIS (TAKE WITH FOOD) 5) ONDANSETRON HCL 8MG TAB TAKE ONE-HALF TABLET BY MOUTH ACTIVE ONCE A DAY NEEDED FOR NAUSEA/VOMITING 6) VENLAFAXINE HCL 75MG 24HR SA CAP TAKE ONE CAPSULE BY ACTIVE MOUTH ONCE A DAY FOR DEPRESSION WITH FOOD. DO NOT ABRUPTLY DISCONTINUE MEDICATION. Active Non-[place] Medications Status 1) Non-VA CEPHALEXIN 500MG CAP 500MG BY MOUTH EVERY 6 ACTIVE HOURS 7 Total Medications O: Waller ambulated into the clinic without assistance. Steady gait. Alert and oriented x4. unlabored breathing. Bilateral feet had small red bites and raised red lesions between toes. No exudate noted from lesions. A/P: Reviewed with Provider. Provider gave Waller hand written script for Prometherine cream. Waller given immediate need form. Waller advised to apply cream before bed and sleep in cream then wake up and shower cream off. advise to wash linens. Waller advised to spray furniture Lice spray. Waller voiced understanding. escorted to the lobby in stable condition. RTC: as needed /sarabjit/ Robin Preciado RN [place], HORTEN[place] [facility] Signed: 04/05/2024 09:23 Receipt Acknowledged By: 04/05/2024 11:01 /sarabjit/ KVNG Cox-MAGI [place] JEANNIE RENEE [facility]
--- OUTSIDE RECORDS SUMMARY | 2024-05-03 09:40 | XMS_ITS | Encounter Summary ---
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 Name Role Phone JUAN CARLOS BRENNAN Primary [...] MEDICARE ADVANTAGE MCR (WNR) Aug 30, 2022 [id number] GERDA AARGON PATIENT HUMANA MCR (WNR) MEDICARE ADVANTAGE MCR (WNR) Aug 30, 2022 [id number] GERDA ARAGON PATIENT MEDICARE (WNR) MEDICARE (M) PART A Jun 30, 2017 PART A [id number] GERDA ARAGON PATIENT MEDICARE (WNR) MEDICARE (M) PART B Jun 30, 2017 PART B [id number] GERDA ARAGON PATIENT MEDICARE (WNR) MEDICARE (M) PART A Jun 30, 2017 PART A [id number] GERDA ARAGON PATIENT MEDICARE (WNR) MEDICARE (M) PART B Jun 30, 2017 PART B [id number] GERDA ARAGON PATIENT WELLCARE MCR (WNR) MEDICARE ADVANTAGE [facility] (WNR) Sep 30, 2023 [id number] GERDA ARAGON PATIENT Selected Encounter This section includes the information on record at [place] for the Encounter. 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 Date/Time Primary/Secondary Diagnosis Diagnosis Name Provider Source May 03, 2024 02:47 PM PRIMARY Segmental and somatic dysfunction of cervical region [facility] May 03, 2024 02:47 PM SECONDARY Cervicalgia [facility] May 03, 2024 02:47 PM SECONDARY Other intervertebral disc degeneration, lumbosacral region [facility] May 03, 2024 02:47 PM SECONDARY Pain in thoracic spine [facility] May 03, 2024 02:47 PM SECONDARY Segmental and somatic dysfunction of lumbar region [facility] May 03, 2024 02:47 PM SECONDARY Segmental and somatic dysfunction of pelvic region [facility] May 03, 2024 02:47 PM SECONDARY Segmental and somatic dysfunction of thoracic region [facility] Plan of Treatment: Future Appointments (+ 6 months) and Future Tests (+/- 45 days) The Plan of Treatment section includes future care activities for the patient from all [place] treatmentfacilities. This section includes future appointments and future orders which are active, pending or scheduled. Future Appointments This section includes appointments that were scheduled to occur 6 months from the date of the Encounter, up to a maximum of 20 appointments. The data comes from all [place] treatment facilities. Appointment Date/Time Appointment Type Appointme nt Facility Name May 08, 2024 02:30 PM [facility] May 09, 2024 03:40 PM [facility] May 10, 2024 08:20 AM [facility] May 10, 2024 02:00 PM [facility] May 17, 2024 03:00 PM [facility] May 18, 2024 08:20 AM [facility] May 30, 2024 03:15 PM [facility] [place] [facility] [place] [facility] May 31, 2024 08:20 AM [facility] May 31, 2024 03:00 PM [facility] Jun 06, 2024 08:00 AM [facility] Jun 07, 2024 08:00 AM [facility] Jun 14, 2024 08:20 AM [facility] Jun 14, 2024 08:30 AM [facility] Jun 15, 2024 01:40 PM [facility] [place] [facility] Jun 16, 2024 09:00 AM [facility] Jun 21, 2024 01:40 PM [facility] Jul 05, 2024 09:40 AM [facility] Jul 17, 2024 11:00 AM [facility] 2024 09:30 AM [facility] 2024 09:40 AM [facility] Lab Results: +/- 30 days of the encounter This section includes the Chemistry and Hematology Lab Results on record with [place] for the patient. Radiology Reports and Pathology Reports are provided separately, in subsequent sections. Lab Results This section contains the Chemistry/Hematology Results that were resulted 30 days before or 30 daysafter the date of the Encounter. Date/Time Source Result Type Result - Unit Interpretation Reference Range Specimen Type Comment May 09, 2024 03:25 PM [facility] BASIC METABOLIC PANEL PLASMA Specimen Type: PLASMA No comment entered. Ordering Provider: FELICE BRENNAN Report Released Date/Time: May 09, 2024 01:54 PM Reporting Lab: [place] [facility] [address] [place] [address] Performing Lab: [place] [facility] [address] [place] [address] CREATININE 0.80 mg/dL 0.6-1.1 UREA NITROGEN 17 mg/dL 9-25 GLUCOSE 112 mg/dL H 72-99 SODIUM 141 meq/L 136-145 POTASSIUM 3.8 meq/L 3.5-5 CHLORIDE 108 meq/L H 98-107 CARBON DIOXIDE 22 meq/L 22-31 CALCIUM 9.7 mg/dL 8.4-10.4 EGFR (CKD-EPI 2020) 79 Vital Signs: All taken on the encounter date This section contains inpatient and outpatient Vital Signs collected on the date of the Encounter. Date/Time Temperature Pulse Blood Pressure Respiratory Rate SP02 Pain Height Weight Body Mass Index Source May 03, 2024 02:40 PM 98 77 118/80 [facility] Social History: Smoking Status (Most current) and Tobacco Use (All prior to encounter date) This section includes the most current, and the historical, smoking and tobacco- related health factors from the [place] facility where the Encounter took place. Current Smoking Status This section includes the most current smoking, or tobacco-related health factor, from the [place] facility where the Encounter took place. Date/Time Current Smoking Status Comment Hank ity January 21, 2024 10:00 AM VA-TOBACCO FORMER USER [facility] Tobacco Use History This section includes a history of the smoking, or tobacco-related health factors, that were collected on or before the date of the Encounter. The data comes from the [place] facility where the Encounter took place. Date/Time Smoking Status/Tobacco Use Comment F acility January 21, 2024 10:00 AM [place]-TOBACCO QUIT 5 TO < 15 YRS [facility] January 27, 2023 12:31 PM VA-TOBACCO FORMER USER [facility] January 27, 2023 12:31 PM [place]-TOBACCO QUIT 15 YRS OR MORE [facility] Advance Directives: All historical and current Section Date Range: From patient's date of to the date document was created. This section includes ALL of a patient's completed or amended [place] Advance and Rescinded Directives. The entries below indicate that a directive exists for the patient, but an actual copy is not included with this document. The data comes from all [place] facilities. Date Advance Directives Provider Source May 14, 2022 ADVANCE DIRECTIVE BERTHA NAZARIO [facility] Feb 05, 2017 ADVANCE DIRECTIVE DISCUSSION PEG SORENSEN [facility] Radiology Reports: +/- 30 days of the [...] the Encounter. The data comes from all [place] treatment facilities. Date/Time Radiology Report Provider Source May 30, 2024 03:32 PM MRI BRAIN W/O&W CO NT: GERDA ARAGON [id number] -1950 F Exm Date: MAY 30, 2024@15:32 Req Phys: JUAN CARLOS BRENNAN Loc: OUTSIDE PB-MRI (Req'g Loc) Img Loc: OUTSIDE PB-MRI Service: Unknown Screen: Patient is unable to answer or is unsure Screen Comment: OUTSIDE STUDY (Case [id number] COMPLETE) MRI BRAIN W/O&W CONT (MRI Detailed) CPT:68860 Reason for Study: Exam imported from outside Clinical History: Original Data for Imported Study Patient Name: GERDA ARAGON Date: 1950 Sex: F Study Date: 05/30/24 Study Time: 03:32:05 Study Description: MR head wo/w con [id number] Referring Physician: UNKNOWN, UNKNOWN Series 1: 27 MR files, description: 3 PL LOC Series 2: 22 MR files, description: SAG T1 Series 3: 31 MR files, description: COR T2 Series 4: 56 MR files, description: AX DIFF Series 5: 28 MR files, description: AX T2 Series 6: 28 MR files, description: Apparent Diffusion Coefficient (mm2/s) Series 7: 28 MR files, description: AX T2 FLAIR Series 8: 28 MR files, description: AX SWI Series 9: 28 MR files, description: AX T1 Series 10: 22 MR files, description: SAG T1 FSE FAST Series 11: 31 MR files, description: COR T1+C Series 12: 28 MR files, description: AX T1+C Series 13: 162 MR files, description: FSPGR 3D +C (THIN) Series 14: 28 MR files, description: AX T1+C Series 15: 29 MR files, description: Processed Images Series 16: 38 MR files, description: Processed Images Series 17: 1 MR file, description: 3D Saved State - AutoSave Acquisition site: [facility] Report Status: Electronically Filed Date Reported: JUL 05, 2024 Report: Electronically generated report for outside study. Impression: Electronically generated report for outside study. VERIFIED BY: / *ELECTRONICALLY FILED* [facility] May 08, 2024 03:37 PM HIP W/PELVIS 2-3 V IEWS RIGHT: GERDA ARAGON [id number] -1950 F Exm Date: MAY 08, 2024@15:37 Req Phys: JUAN CARLOS BRENNAN Pat Loc: PB-MICHAEL PACT JAMES QUALITY ENGINEER WH (Req Img Loc: PB-XRAY [facility] Service: [place] [address] (Case [id number] COMPLETE) HIP W/PELVIS 2-3 VIEWS RIGHT (RAD Detailed) CPT:39743 Reason for Study: right hip pain Clinical History: need for injections Report Status: Verified Date Reported: MAY 08, 2024 Date Verified: MAY 08, 2024 Tariff Publishing Agent E-Sig: Report: Pelvis and right hip There are degenerative change involving the right hip similar to the left hip. Degenerative changes sacroiliac joints. Degenerative changes also seen in the visualized lumbar spine. There is no evidence of a fracture or dislocation. No bony destruction. 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 Primary Interpreting Staff: THAD ZHANG, RADIOLOGIST (Tariff Publishing Agent, no e-sig) /THAD Rogers [facility] Apr 05, 2024 03:[address] THORAX, DIAGNOS TIC, W/CONTRAST: GERDA ARAGON [id number] -1950 F Exm Date: APR 05, 2024@15:10 Req Phys: JUAN CARLOS BRENNAN Loc: OUTSIDE PB-CT (Req'g Loc) Img Loc: OUTSIDE PB-CT Service: Unknown Screen: Patient is unable to answer or is unsure Screen Comment: OUTSIDE STUDY (Case [id number] COMPLETE) CT THORAX, DIAGNOSTIC, W/CONTRAS(CT Detailed) CPT:32340 Reason for Study: Exam imported from outside Clinical History: Original Data for Imported Study Patient Name: GERDA ARAGON Date: 1950 Sex: F Study Date: 04/05/24 Study Time: 03:10:08 Study Description: CT chest w con* [id number] Referring Physician: UNKNOWN, UNKNOWN Series 1: 2 [...] VERIFIED BY: / *ELECTRONICALLY FILED* EVERT SANTIAGO [facility] Encounter Notes: All associated encounter notes This section contains the clinical notes associated to the Encounter. Date/Time Encounter Note(s) Provider Source May 03, 2024 02:36 PM CHIROPRACTIC NOTE: LOCAL TITLE: CHIROPRACTIC FOLLOW UP NOTE PB STANDARD TITLE: CHIROPRACTIC NOTE DATE OF NOTE: MAY 03, 2024@14:36 ENTRY DATE: MAY 03, 2024@14:36:55 AUTHOR: [facility] COSIGNER: URGENCY: STATUS: COMPLETED CHIROPRACTIC FOLLOW-UP VISIT Patient's language preference for health information: Khmer Other Communication Methods Needed: SUBJECTIVE: The Cody is a 73 year old FEMALE being seen in the Chiropractic clinic for follow-up visit. The reports constant pain throughout her neck and back, centered in her midback. She states her pain level has worsened since her last adjustment, due to traveling to [place]. Today, the rates her pain level as a 10/10. PAST MEDICAL HISTORY: see problem list SOCIO-ECONOMIC [...] associated myofascial pain. PLAN: This is the first follow up treatment for the of a planned six treatments. Due to persistent neck and back pain, we will treat The Cody 1x per week for 6 weeks. 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 /es/ [facility] Signed: 05/03/2024 14:47 [facility]
--- OUTSIDE RECORDS SUMMARY | 2024-05-08 09:30 | XMS_ITS | Encounter Summary ---
Author Name [facility] Organization [facility] Address [address] [place] [address] Care Team Providers Care Relay Dispatcher Name Role Phone JUAN CARLOS BRENNAN Primary [...] MEDICARE ADVANTAGE MCR (WNR) Aug 30, 2022 [id number] [phone] GERDA ARAGON PATIENT [employer] MCR (WNR) MEDICARE ADVANTAGE MCR (WNR) Aug 30, 2022 [id number] GERDA ARAGON PATIENT MEDICARE (WNR) MEDICARE (M) PART A Jun 30, 2017 PART A [id number] [phone] GERDA ARAGON PATIENT MEDICARE (WNR) MEDICARE (M) PART B Jun 30, 2017 PART B [id number] [phone] GERDA ARAGON PATIENT MEDICARE (WNR) MEDICARE (M) PART A Jun 30, 2017 PART A [id number] [phone] GERDA ARAGON PATIENT MEDICARE (WNR) MEDICARE (M) PART B Jun 30, 2017 PART B [id number] [phone] GERDA ARAGON PATIENT [facility] (WNR) MEDICARE ADVANTAGE [facility] (WNR) Sep 30, 2023 [id number] [phone] GERDA ARAGON PATIENT Selected Encounter This section includes the information on record at MD for the Encounter. Date/Time Encounter Type Encounter Description Reason Provider Source May 08, 2024 02:30 PM OFFICE O/P EST MOD 30 MIN PRIMARY CARE/MEDICINE ICD-10-CM R25.1 Tremor, unspecified BRENNAN,CATHER INE R IHE Encounter Template Text not used by MD Assessments - Encounter Diagnoses This section includes the primary and secondary diagnoses documented for the Encounter. Date/Time Primary/Secondary Diagnosis Diagnosis Name Provider Source May 15, 2024 09:48 AM PRIMARY Tremor, unspecified BRENNAN,CATHER INE R [facility] May 15, 2024 09:48 AM SECONDARY Encounter for immunization KATHY PRECIADO ANNABELLE [facility] [place] [facility] May 15, 2024 09:48 AM SECONDARY Other specified rheumatoid arthritis, right hip BRENNAN,CATHER INE R [facility] May 15, 2024 09:48 AM SECONDARY Pain, unspecified BRENNAN,CATHER INE R [facility] Plan of Treatment: Future Appointments (+ 6 months) and Future Tests (+/- 45 days) The Plan of Treatment section includes future care activities for the patient from all MD treatmentfacilities. This section includes future appointments and future orders which are active, pending or scheduled. Future Appointments This section includes appointments that were scheduled to occur 6 months from the date of the Encounter, up to a maximum of 20 appointments. The data comes from all MD treatment facilities. Appointment Date/Time Appointment Type Appointme nt Facility Name May 09, 2024 03:40 PM AMBULATORY - MEDICINE [facility] May 10, 2024 08:20 AM AMBULATORY - MEDICINE [facility] May 10, 2024 02:00 PM AMBULATORY - MEDICINE [facility] May 17, 2024 03:00 PM AMBULATORY - MEDICINE [facility] May 18, 2024 08:20 AM [facility] [place] [facility] [facility] May 30, 2024 03:15 PM [place]ORY [place] [facility] May 31, 2024 08:20 AM [facility] [place] [facility] May 31, 2024 03:00 PM [facility] Jun 06, 2024 08:00 AM [facility] Jun 07, 2024 08:00 AM [facility] Jun 14, 2024 08:20 AM [facility] [place] [facility] [facility] Jun 14, 2024 08:30 AM AMBULATORY - MEDICINE [facility] Jun 15, 2024 01:40 PM AMBULATORY - [place]IC[place] [facility] Jun 16, 2024 09:00 AM AMBULATORY - MEDICINE [facility] Jun 21, 2024 01:40 PM [facility] [facility] Jul 05, 2024 09:40 AM AMBULATORY - MEDICINE [facility] Jul 17, 2024 11:00 AM AMBULATORY - MEDICINE [facility] 2024 09:30 AM AMBULATORY - MEDICINE [facility] 2024 09:40 AM AMBULATORY - MEDICINE [facility] Jul 31, 2024 11:00 AM AMBULATORY - MEDICINE [facility] Lab Results: +/- 30 days of the encounter This section includes the Chemistry and Hematology Lab Results on record with MD for the patient. Radiology Reports and Pathology Reports are provided separately, in subsequent sections. Lab Results This section contains the Chemistry/Hematology Results that were resulted 30 days before or 30 daysafter the date of the Encounter. Date/Time Source Result Type Result - Unit Interpretation Reference Range Specimen Type Comment May 09, 2024 03:25 PM [facility] BASIC METABOLIC PANEL PLASMA Specimen Type: PLASMA No comment entered. Ordering Provider: FELICE BRENNAN Report Released Date/Time: May 09, 2024 01:54 PM Reporting Lab: [place] [facility] [address] [place] [address] Performing Lab: [place] [facility] [address] [place] [address] CREATININE 0.80 mg/dL 0.6-1.1 UREA NITROGEN 17 mg/dL 9-25 GLUCOSE 112 mg/dL H 72-99 SODIUM 141 meq/L 136-145 POTASSIUM 3.8 meq/L 3.5-5 CHLORIDE 108 meq/L H 98-107 CARBON DIOXIDE 22 meq/L 22-31 CALCIUM 9.7 mg/dL 8.4-10.4 EGFR (CKD-EPI 2020) 79 Immunizations: All administered on the encounter date This section contains immunizations associated to the Encounter. Immunization Series Date Issued Administered By Site Reaction Lot Number CVX Code Drug Upset Operator Comment(s) Source INFLUENZA, HIGH-DOSE, TRIVALENT, PF May 08, 2024 KELL PRECIADO ANNABELLE LEFT DELTO ID [id number] A [address] [facility] Social History: Smoking Status (Most current) and Tobacco Use (All prior to encounter date) This section includes the most current, and the historical, smoking and tobacco- related health factors from the MD facility where the Encounter took place. Current Smoking Status This section includes the most current smoking, or tobacco-related health factor, from the MD facility where the Encounter took place. Date/Time Current Smoking Status Comment Facil ity January 21, 2024 10:00 AM MD-TOBACCO FORMER USER [facility] Tobacco Use History This section includes a history of the smoking, or tobacco-related health factors, that were collected on or before the date of the Encounter. The data comes from the MD facility where the Encounter took place. Date/Time Smoking Status/Tobacco Use Comment F acility January 21, 2024 10:00 AM MD-TOBACCO QUIT 5 TO < 15 YRS [facility] January 27, 2023 12:31 PM VA-TOBACCO FORMER USER [facility] January 27, 2023 12:31 PM VA-TOBACCO QUIT 15 YRS OR MORE [facility] Advance Directives: All historical and current Section Date Range: From patient's date of to the date document was created. This section includes ALL of a patient's completed or amended MD Advance and Rescinded Directives. The entries below indicate that a directive exists for the patient, but an actual copy is not included with this document. The data comes from all MD facilities. Date Advance Directives Provider Source May 14, 2022 ADVANCE DIRECTIVE BERTHA NAZARIO [facility] Feb 05, 2017 ADVANCE DIRECTIVE DISCUSSION PEG SORENSEN [facility] Radiology Reports: +/- 30 days of the [...] the Encounter. The data comes from all MD treatment facilities. Date/Time Radiology Report Provider Source May 30, 2024 03:32 PM MRI BRAIN W/O&W CO NT: GERDA ARAGON [id number] -1950 F Exm Date: MAY 30, 2024@15:32 Req Phys: JUAN CARLOS BRENNAN Loc: OUTSIDE PB-MRI (Req'g Loc) Img Loc: OUTSIDE PB-MRI Service: Unknown Screen: Patient is unable to answer or is unsure Screen Comment: OUTSIDE STUDY (Case [id number] COMPLETE) MRI BRAIN W/O&W CONT (MRI Detailed) CPT:00869 Reason for Study: Exam imported from outside Clinical History: Original Data for Imported Study Patient Name: GERDA ARAGON Date: 1950 Sex: F Study Date: 05/30/24 Study Time: 03:32:05 Study Description: MR head wo/w con [id number] Referring Physician: UNKNOWN, UNKNOWN Series 1: 27 [...] 3D Saved State - AutoSave Acquisition site: [facility] Report Status: Electronically Filed Date Reported: JUL 05, 2024 Report: Electronically generated report for outside study. Impression: Electronically generated report for outside study. VERIFIED BY: / *ELECTRONICALLY FILED* [place] [facility] May 08, 2024 03:37 PM HIP W/PELVIS 2-3 V IEWS RIGHT: GERDA ARAGON [id number] -1950 F Exm Date: MAY 08, 2024@15:37 Req Phys: JUAN CARLOS BRENNAN Pat Loc: PB-MICHAEL PACT JAMES MATHIAS WH (Req Img Loc: PB-XRAY [place] Service: [place] [address] (Case [id number] COMPLETE) HIP W/PELVIS 2-3 VIEWS RIGHT (RAD Detailed) CPT:91546 Reason for Study: right hip pain Clinical History: need for injections Report Status: Verified Date Reported: MAY 08, 2024 Date Verified: MAY 08, 2024 Sugar Boiler E-Sig: Report: Pelvis and right hip There are degenerative change involving the right hip similar to the left hip. Degenerative changes sacroiliac joints. Degenerative changes also seen in the visualized lumbar spine. There is no evidence of a fracture or dislocation. No bony destruction. 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 Date/Time Encounter Note(s) Provider Source Jun 14, 2024 08:45 AM PRIMARY CARE MEDIC ATION MGT NOTE: LOCAL TITLE: MEDICATION RENEWAL/REFILL PB STANDARD TITLE: PRIMARY CARE MEDICATION MGT NOTE DATE OF NOTE: JUN 14, 2024@08:45 ENTRY DATE: JUN 14, 2024@08:45:27 AUTHOR: ROBIN PRECIADO EXP COSIGNER: URGENCY: STATUS: COMPLETED GERDA ARAGON has contacted the and is requesting that the following prescription(s) be renewed. The patient reports that he/she is currently LOW on his/her supply of medication. He/she is requesting a new supply be mailed by MEDICATION REQUESTED: ROPINIROLE HCL 1MG TAB TAKE ONE TABLET BY MOUTH TWICE A DAY FOR RESTLESS LEG SYNDROME Recall visit scheduled? Future visits: 06/15/24 1:40 pm [facility]-ORTH[facility] 657 06/16/24 9:00 am PB-MICHAEL PT [phone] 06/21/24 1:40 pm PB-MICHAEL CHIRO [phone] 07/05/24 9:40 am PB-MICHAEL CHIRO [phone] 07/19/24 9:40 am PB-MICHAEL CHIRO [phone] 08/02/24 9:40 am PB-MICHAEL CHIRO [phone] 08/16/24 9:40 am PB-MICHAEL CHIRO [phone] 08/31/24 9:40 am PB-MICHAEL CHIRO [phone] 09/13/24 9:40 am PB-MICHAEL CHIRO [phone] 10/02/24 11:00 am [facility]-RHEUMATOLOGY 65 01/23/25 10:00 am PB-MICHAEL PACT [employer] W [phone] ==== The following is informational only for those patients that are on long-term opiate therapy: Opioid Consent: No data available for: CONSENT FOR LONG-TERM OPIOIDS FOR PAIN No drugs in class: CN101 (OPIOID ANALGESICS) Last UDS: No data available for: CREATININE URINE/OTHERS CANNABINOIDS-BH PHENCYCLIDINE(MA)-BH COCAINE-BH AMPHET/METHAMPHETAMINE-BH BENZODIAZEPINE-BH METHADONE-BH OXYCODONE-BH BARBITURATE-BH OPIATES- Benzodiazipines: No drugs in class: CN302 (BENZODIAZEPINE DERIVATIVE SEDATIVES/HYPNOTICS) /sarabjit/ Robin Preciado RN Kite CBGIGI, SHYANNE [facility] Signed: 06/14/2024 08:46 Receipt Acknowledged By: 06/15/2024 19:10 /sarabjit/ KVNG [facility] RENEE [place] [facility] May 08, 2024 03:40 PM PRIMARY CARE PROGR ESS NOTE: LOCAL TITLE: PRIMARY CARE CLINIC PROGRESS NOTE PB STANDARD TITLE: PRIMARY CARE PROGRESS NOTE DATE OF NOTE: MAY 08, 2024@15:40 ENTRY DATE: MAY 08, 2024@15:40:07 AUTHOR: JUAN CARLOS BRENNAN EXP COSIGNER: URGENCY: STATUS: COMPLETED PRIMARY CARE CLINIC PROGRESS NOTE PB Has ADDENDA PROVIDER ASSESSMENT DATE & TIME:Apr@15:40 CHIEF COMPLAINT: HISTORY OF PRESENT ILLNESS: 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: 1) Actinic keratosis 2) Arthritis of knee 3) Chronic pain 4) Qacbd-7-lqypncvoiol deficiency 5) Obstructive sleep apnea syndrome 6) COPD - Chronic Obstructive Pulmonary Disease ([facility] [id number]) 7) Osteoporosis 8) Multiple nodules of lung 9) Cervical spondylosis 10) Hyperlipidemia ([facility] [id number]) 11) Tremor 12) Restless legs 13) Exposure to potentially hazardous substance 14) Myalgia Active Outpatient Medications (including Supplies): Active Outpatient [...] DAY FOR OSTEOARTHRITIS (TAKE WITH FOOD) 5) LIDOCAINE 5% PATCH APPLY 1 PATCH TO SKIN SITE ONCE A ACTIVE DAY FOR LOCAL ANESTHESIA APPLY PATCH AND PRESS FIRMLY FOR 10-15 SECONDS. KEEP ON FOR 12 HOURS THEN REMOVE PATCH FOR 12 HOURS. 6) ONDANSETRON HCL 8MG TAB TAKE ONE-HALF TABLET BY MOUTH ACTIVE ONCE A DAY NEEDED FOR NAUSEA/VOMITING 7) VENLAFAXINE HCL 75MG 24HR SA CAP TAKE ONE CAPSULE BY ACTIVE MOUTH ONCE A DAY FOR DEPRESSION WITH FOOD. DO NOT ABRUPTLY DISCONTINUE MEDICATION. Active Non-VA Medications Status 1) Non-VA CEPHALEXIN 500MG CAP 500MG BY MOUTH EVERY 6 ACTIVE HOURS 8 Total Medications REVIEW OF SYSTEMS: HEENT: No Headache. No blurry vision, vision loss, eye pain, red eyes, or foreign body. No runnynose, congestion, or nose bleed. No hearing loss, ringing in the ears, or vertigo. No sore throat or dental pain. RESPIRATORY: No cough, SOA, wheezing, or sputum production. CARDIOVASCULAR: No chest pain, palpitations, tachycardia, PND, or orthopnea. GI: No abdominal pain, nausea, vomiting, diarrhea, constipation, melena, or hematochezia. : No dysuria, hematuria, urinary frequency, weak stream, or post-void dribbling. MUSCULOSKELETAL:No muscle or joint pain. SKIN: No rash, lesions, or infection PSYCH: No Depression or Anxiety. Not suicidal. PHYSICAL ASSESSMENT: VITAL SIGNS Pulse: 77 (05/03/2024 14:40) Blood Pressure: 118/80 (05/03/2024 14:40) Respiratory Rate: 18 (04/05/2024 08:57) Temperature: 98 F [36.7 C] (05/03/2024 14:40) Weight: 178.1 lb [80.78 kg] (04/05/2024 08:57) Height: 69 in [175.3 cm] (06/15/2023 13:58) Pain: 8 (09/28/2023 12:04) HEENT:PERRL, EOMI, Fundi benign, TM's clear, Pharynx not red and without exudate, tonsils normal size. NECK: Supple, no lymhadenopathy, thyroid normal. CARDIAC: Regular rate and rhythm without murmur. No edema. RESPIRATORY: CTA, BEBS GI: Abdomen soft,with ABS, no HSM, no guarding or rebound. MUSCULOSKELETAL:No muscle or joint tenderness. FROM. SKIN: [place] without rash or lesions. NEUROLOGICAL: The is alert and oriented without distress. DTR's 2/4, motor and sensory grossly intact. IMPRESSION: PLAN: Please refer to the OIS Note for Reyes's future plan of care /sarabjit/ KVNG [facility] Signed: 05/08/2024 15:40 05/15/2024 ADDENDUM STATUS: COMPLETED Late entry: signed off chart prior to documenting: CHIEF COMPLAINT: ER follow up pain. HISTORY OF PRESENT ILLNESS: Reyes is being seen for continued complaints of pain follow up. Her Rheumatology appt is not until Sep and she is on a waiting list for this. She states they gave her some prednisone and it has helped some. She and her spouse are here today and have some concerns regarding a new tremor she has ddeveloped in her bilateral upper extremities. She would also like a referral back to orthopedics for her right hip pain. Reyes is on the waiting list for a sooner appt with [facility]. 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: 1) Actinic keratosis 2) Arthritis of knee 3) Chronic pain 4) Jisip-4-fdxsdpmkqla deficiency 5) Obstructive sleep apnea syndrome 6) COPD - Chronic Obstructive Pulmonary Disease ([facility] [id number]) 7) Osteoporosis 8) Multiple nodules of lung 9) Cervical spondylosis 10) Hyperlipidemia ([facility] [id number]) 11) Tremor 12) Restless legs 13) Exposure to potentially hazardous substance 14) Myalgia Active Outpatient Medications (including Supplies): Active Outpatient [...] DAY FOR OSTEOARTHRITIS (TAKE WITH FOOD) 5) LIDOCAINE 5% PATCH APPLY 1 PATCH TO SKIN SITE ONCE A ACTIVE DAY FOR LOCAL ANESTHESIA APPLY PATCH AND PRESS FIRMLY FOR 10-15 SECONDS. KEEP ON FOR 12 HOURS THEN REMOVE PATCH FOR 12 HOURS. 6) ONDANSETRON HCL 8MG TAB TAKE ONE-HALF TABLET BY MOUTH ACTIVE ONCE A DAY NEEDED FOR NAUSEA/VOMITING 7) VENLAFAXINE HCL 75MG 24HR SA CAP TAKE ONE CAPSULE BY ACTIVE MOUTH ONCE A DAY FOR DEPRESSION WITH FOOD. DO NOT ABRUPTLY DISCONTINUE MEDICATION. Active Non-VA Medications Status 1) Non-VA CEPHALEXIN 500MG CAP 500MG BY MOUTH EVERY 6 ACTIVE HOURS 8 Total Medications REVIEW OF SYSTEMS: HEENT: No Headache. No blurry vision, vision loss, eye pain, red eyes, or foreign body. No runnynose, congestion, or nose bleed. No hearing loss, ringing in the ears, or vertigo. No sore throat or dental pain. RESPIRATORY: No cough, SOA, wheezing, or sputum production. CARDIOVASCULAR: No chest pain, palpitations, tachycardia, PND, or orthopnea. GI: No abdominal pain, nausea, vomiting, diarrhea, constipation, melena, or hematochezia. : No dysuria, hematuria, urinary frequency, weak stream, or post-void dribbling. MUSCULOSKELETAL:chronic joint pain and right hip pain. SKIN: No rash, lesions, or infection PSYCH: No Depression or Anxiety. Not suicidal. PHYSICAL ASSESSMENT: VITAL SIGNS Pulse: 77 (05/03/2024 14:40) Blood Pressure: 118/80 (05/03/2024 14:40) Respiratory Rate: 18 (04/05/2024 08:57) Temperature: 98 F [36.7 C] (05/03/2024 14:40) Weight: 178.1 lb [80.78 kg] (04/05/2024 08:57) Height: 69 in [175.3 cm] (06/15/2023 13:58) Pain: 8 (09/28/2023 12:04) CARDIAC: Regular rate and rhythm without murmur. No edema. RESPIRATORY: CTA, BEBS GI: Abdomen soft,with ABS, no HSM, no guarding or rebound. MUSCULOSKELETAL:Right hip pain and diffuse joint pain. SKIN: [place] without rash or lesions. NEUROLOGICAL: The is alert and oriented without distress. Affect appropriate. Fine tremor in bilateral upper extremities. IMPRESSION: Tremor-new onset Chronic Joint Pain-chronic Right Hip Osteoarthritis-chronic PLAN: Will order MRI of brain for Neuro referral. Will refer to Orthopedics for injection. Will ask for sooner appt with Rheumatology. RTC as needed and as scheduled. Patient is advised this primary care clinic has open access and he can make a same day appointment anytime a problem/concern arises. Patient further advised he can be seen on a walk-in basis as needed. Patient is provided clinic contact information. Medications reviewed and reconciled. Discussed diet and exercise as relevant to patient conditions. Treatment plan as noted above and the After Visit Summary was reviewed with ; opportunity provided to report concerns and ask question regarding aspects of care or treatment or services; concurrence reached and verbalized understanding. Please refer to addendum or follow up lab letter for plan of care/changes related to lab/test results not available at conclusion of appointment, if any. Discussed with patient that in the event of community imaging / testing being ordered in the future, once the imaging / testing has been completed, please notify PACT of within 1 week by a [facility] PACT member; this is due to intermittent lapses in notification of imaging completion within CPRS. All questions answered; agrees to plan of care. Follow up as listed above, annually, and as needed. Keep all completion at outside facility if not called with results appointments. Medications Reconciled. Time spent 30 minutes. /sarabjit/ KVNG [facility]ite [facility] Signed: 05/15/2024 09:47 JUAN CARLOS BRENNAN [facility] May 08, 2024 02:46 PM PRIMARY CARE NURSI NG NOTE: LOCAL TITLE: PRIMARY CARE NURSING PROGRESS NOTE (TEXT) NURSING P STANDARD TITLE: PRIMARY CARE NURSING NOTE DATE OF NOTE: MAY 08, 2024@14:46 ENTRY DATE: MAY 08, 2024@14:46:19 AUTHOR: JEANIE HARP EXP COSIGNER: URGENCY: STATUS: COMPLETED Established Patient GERDA ARAGON IS A 73 YEAR OLD FEMALE BEING SEEN IN CLINIC MAY 08, 2024. == == REASON FOR VISIT: here today for ER F/u after being seen for body pain. She states she is also having ongoing bilateral arm pain Are you receiving care any where other than the [facility]? No HEALTH AND SURGICAL HISTORY: Does patient report using home oxygen? No CURRENT ACTIVE MEDICATIONS FOR REVIEW: Allergies/ADRs (Tool #5) FACILITY ALLERGY/ADR -------- [facility] ALBUTEROL [facility] CODE[facility] ALBUTEROL [facility] LISINOPRIL Med. Reconciliation (Tool #1) INCLUDED IN THIS LIST: Alphabetical list of active outpatient prescriptions dispensed from this MD (local) and dispensed from another MD or DoD facility (remote) as well as inpatient orders (local pending and active), local clinic medications, locally documented non-VA medications, and local prescriptions that have or been discontinued in the past 90 days. Non-VA Meds Last Documented On: January 06, 2024 NOTE The display of VA prescriptions dispensed from another MD or [facility] facility (remote) is limited to active outpatient prescription entries matched to National Drug File at the originating site and may not include some items such as investigational drugs, compounds, etc. NOT INCLUDED IN THIS LIST: Medications self-entered by the patient into personal health records (i.e. [employer]) are NOT included in this list. Non-VA medications documented outside this MD, remote inpatient orders (regardless of status) and remote clinic medications are NOT included in this list. The patient and provider must always discuss medications the patient is taking, regardless of where the medication was dispensed or obtained. OUTPT ACETAMINOPHEN 500MG TAB (Status = Active) TAKE ONE TABLET BY MOUTH THREE TIMES A DAY NEEDED FOR PAIN CAUTION: DO NOT EXCEED 4000MG PER DAY ACETAMINOPHEN (APAP) FROM ALL MEDS. Rx# [id number] Last Released: 10/14/23 Qty/Days Supply: Rx Expiration Date: 10/12/24 Refills Remainin Indication: FOR PAIN OUTPT ALENDRONATE 70MG TAB (Status = Active) TAKE ONE TABLET BY MOUTH EVERY WEEK FOR OSTEOPOROSIS - TAKE WITH 6-8 OZ OF PLAIN WATER 30 MIN BEFORE FIRST FOOD OR OTHER MEDICATION. REMAIN UPRIGHT. Rx# [id number] Last Released: 01/26/24 Qty/Days Supply: Rx Expiration Date: 06/15/24 Refills Remainin Indication: FOR OSTEOPOROSIS OUTPT AMLODIPINE BESYLATE 2.5MG TAB (Status = Active) TAKE ONE TABLET BY MOUTH ONCE A DAY FOR HIGH BLOOD PRESSURE Rx# [id number] Last Released: 02/23/24 Qty/Days Supply: 90 Rx Expiration Date: 02/18/25 Refills Remainin Indication: FOR HIGH BLOOD PRESSURE Non-VA CEPHALEXIN 500MG CAP TAKE 1 CAPSULE BY MOUTH EVERY 6 HOURS January 06, 2024 VA RX: Non-VA medication recommended by VA provider Indication: FOR URINARY TRACT INFECTION OUTPT CYCLOBENZAPRINE HCL 10MG TAB (Status = ) TAKE ONE TABLET BY MOUTH TWICE DAILY NEEDED FOR MUSCLE SPASM MAY CAUSE DROWSINESS. DO NOT DRINK ALCOHOL WHILE TAKING THIS MEDICATION. Rx# [id number] Last Released: 01/26/24 Qty/Days Supply: 180/ Rx Expiration Date: 04/01/24 Refills Remainin Indication: FOR MUSCLE SPASM OUTPT INDOMETHACIN 25MG CAP (Status = Active) TAKE ONE CAPSULE BY MOUTH TWICE A DAY FOR OSTEOARTHRITIS (TAKE WITH FOOD) Rx# [id number] Last Released: 01/26/24 Qty/Days Supply: 180/90 Rx Expiration Date: 06/04/24 Refills Remainin Indication: FOR OSTEOARTHRITIS OUTPT LIDOCAINE 5% PATCH (Status = Active) APPLY 1 PATCH TO SKIN SITE ONCE A DAY FOR LOCAL ANESTHESIA APPLY PATCH AND PRESS FIRMLY FOR 10-15 SECONDS. KEEP ON FOR 12 HOURS THEN REMOVE PATCH FOR 12 HOURS. Rx# [id number] Last Released: 05/06/24 Qty/Days Supply: 90/ Rx Expiration Date: 05/05/25 Refills Remainin Indication: FOR LOCAL ANESTHESIA OUTPT LISINOPRIL 20MG TAB (Status = Discontinued) TAKE ONE TABLET BY MOUTH ONCE A DAY FOR HIGH BLOOD PRESSURE Rx# [id number] Last Released: 01/25/24 Qty/Days Supply: 90/90 Rx Expiration Date: 01/21/25 Refills Remainin Indication: FOR HIGH BLOOD PRESSURE OUTPT MECLIZINE HCL 25MG CHEW TAB (Status = ) CHEW AND SWALLOW ONE TABLET BY MOUTH THREE TIMES A DAY NEEDED FOR VERTIGO CHEWABLE TABLETS MAY BE CHEWED OR SWALLOWED WHOLE. MAY CAUSE DROWSINESS. Rx# [id number] Last Released: 04/05/23 Qty/Days Supply: 270/90 Rx Expiration Date: 04/01/24 Refills Remainin Indication: FOR VERTIGO OUTPT MONTELUKAST NA 10MG TAB (Status = ) TAKE ONE TABLET BY MOUTH EVERY EVENING FOR ASTHMA Rx# [id number] Last Released: 01/26/24 Qty/Days Supply: Rx Expiration Date: 04/01/24 Refills Remainin Indication: FOR ASTHMA OUTPT ONDANSETRON HCL 8MG TAB (Status = Active) TAKE ONE-HALF TABLET BY MOUTH ONCE A DAY NEEDED FOR NAUSEA/VOMITING Rx# [id number] Last Released: 01/26/24 Qty/Days Supply: Rx Expiration Date: 01/22/25 Refills Remainin Indication: FOR NAUSEA/VOMITING OUTPT ROPINIROLE HCL 1MG TAB (Status = ) TAKE ONE TABLET BY MOUTH TWICE A DAY FOR RESTLESS LEG SYNDROME Rx# [id number] Last Released: 01/26/24 Qty/Days Supply: 180 Rx Expiration Date: 03/24/24 Refills Remainin Indication: FOR RESTLESS LEG SYNDROME OUTPT VENLAFAXINE HCL 75MG 24HR SA CAP (Status = Active) TAKE ONE CAPSULE BY MOUTH ONCE A DAY FOR DEPRESSION WITH FOOD. DO NOT ABRUPTLY DISCONTINUE MEDICATION. Rx# [id number] Last Released: 02/23/24 Qty/Days Supply: Rx Expiration Date: 02/21/25 Refills Remainin Indication: FOR DEPRESSION SUPPLIES OUTPT POISE PAD,MODERATE ABSORBENCY (Status = ) USE/APPLY 1 PAD TO AFFECTED AREA(S) THREE TIMES A DAY FOR INCONTINENCE - FEMALES ONLY Rx# [id number] Last Released: 08/18/23 Qty/Days Supply: 360/90 Rx Expiration Date: 04/01/24 Refills Remainin Indication: FOR INCONTINENCE PHARMACY TERMS AND POSSIBLE PATIENT ACTIONS INPT = MD inpatient order IV = VA intravenous medication OUTPT = MD outpatient prescription PHARMACY POSSIBLE PATIENT TERMS EXPLANATION ACTIONS -------- ----- ACTIVE A prescription that can be If you have refills, filled at the local MD pharmacy. you may request a refill of this prescription from your VA pharmacy. CLINIC A medication you received during If you have questions a visit to a MD clinic or about this medication emergency department. contact your MD healthcare team. DISCONTINUED A prescription your provider has Contact your VA stopped. It is no longer healthcare team if you available to be sent to you or need more of this picked up at the MD pharmacy medication. window. A prescription which is too old Contact your VA to fill. This does not refer to healthcare team if you the expiration date of the need more of this medication in the container. medication. NON-VA A medication that came from If this medication someplace other than a VA information is pharmacy. This may be a incorrect or out of prescription from either the VA date, please tell your or non VA providers that was VA healthcare team. filled outside the VA. Or, it may be an [id number] (OTC), herbal, dietary supplements or sample medication. ON HOLD An active prescription that will Contact your VA not be filled until pharmacy pharmacy when you need resolves the issue. more of this medication. PARKED An active prescription that will Contact your VA not be filled until the patient pharmacy when you need requests it. this medication. PENDING This prescription order has been If you have been sent to the pharmacy for review instructed to start and is not ready yet. this medication now, contact your VA pharmacy. SUSPENDED An active prescription that is Contact your VA not scheduled to be filled yet. pharmacy if you need You should receive it before this medication now. you run out. Patient reports taking medications as ordered. IS PATIENT TAKING ANY OVER THE COUNTER MEDICATIONS, SUCH VITAMINS OR HERBAL SUPPLEMENTS, INCLUDING ANY MEDICATIONS PRESCRIBED BY ANOTHER PHYSICIAN? No ALLERGIES/ADVERSE REACTIONS: ALBUTEROL, CODEINE, LISINOPRIL Does patient have any new allergies to report since last visit? NO VITALS: TEMPERATURE: 98 F [36.7 C] (05/03/2024 14:40) BP: 118/80 (05/03/2024 14:40) RESP: 18 (04/05/2024 08:57) PULSE: 77 (05/03/2024 14:40) HT: 69 in [175.3 cm] (06/15/2023 13:58) WT: 178.1 lb [80.78 kg] (04/05/2024 08:57) BMI: 26.4 PAIN ASSESSMENT: (Most Recent Pain Score in Vitals Package: 8 (09/28/2023 12:04) ) The patient indicated that they and their close contacts have not traveled outside of the [place] in the past 21 days. The patient reports the following symptoms: No symptoms present The patient is not immunocompromised. The patient does not report having a history of Multi Drug Resistant Organism (MDRO) within the last five years. The patient does not report having been exposed to measles, chickenpox, or zoster in last 30 days. This patient's last pain assessment score was: 8 (09/28/2023 12:04). A detailed pain assessment showed the following: Pain characteristics (per patient's own words) Constant, Aching Location of current pain allover pain STRESS: Thank you for your service. Now let us serve you. At the [facility], we strive to provide you with exceptional health care that improves your health and well-being. Are you feeling sad, empty, or depressed? No Do you need to talk about things in your life that worry you or cause you stress? No Do you need to talk about personal problems, family problems, alcohol use, drug use, or mental or emotional illness? No SUICIDE SCREENING: The patient was asked, Over the past two weeks, how often have you been bothered by thoughts that you would be better off or of hurting yourself in some way? Not At All SPIRITUAL ASSESSMENT: Are there quaker practices or spiritual concerns you want the oncologist, your physician, and other health care team members to immediately know about? No Patient advised to call the clinic for any concerns, questions, or symptoms. Patient and/or caregiver verbalized understanding of plan of care. RHS Screen: RHS Screen Session Format: Face to Face Environmental Check Screening was not completed at this time due to: Another adult present Homelessness/Food Insecurity Screen: In the past 2 months, have you been living in stable housing that you own, rent, or stay in as part of a household? Yes - Living in stable housing. Are you worried or concerned that in the next 2 months you may NOT have stable housing that you own, rent, or stay in as part of a household? No - Not worried about housing near future [facility] [place] reports the following: Within the past 12 months, you worried whether your food would run out before you got money to buy more. Never true Within the past 12 months, the food you bought just didn't last and you didn't have money to get more. Never true Influenza Immunization: Deferral / Refusal The patient declines to receive the recommended dose of seasonal influenza vaccine. Immunization: INFLUENZA, UNSPECIFIED FORMULATION Refusal Reason: PATIENT DECISION Patient refuses all immunization(s) in the FLU group Date Documented: 05/08/24 14:49 Pain Assessment: - PAIN ASSESSMENT: .. This patient's last pain assessment score was: 8 (09/28/2023 12:04). A detailed pain assessment showed the following: Pain characteristics (per patient's own words) Constant, Aching Location of current pain allover pain Patient's self identified pain goal: 0 HIV Screening-Routine: Patient has been offered HIV testing and has declined. I have explained that HIV testing is recommended for all adults, even if all risk factors are absent. Hepatitis C Testing: Patient declines HCV lab test. [facility]VC DIGITAL DIVIDE CAPABILITY REMINDER: Patient is not interested in [facility]VC at this time. 'S RIGHT TO DECLINE STATEMENT understands they have the right to decline the use of Telehealth Technology at any time without adverse affects on their continued access to healthcare. [facility] - PHP MAP: PERSONAL HEALTH PLAN INVENTORY & MAP 's Response: FAMILY /es/ JEANIE HARP LPN Signed: 05/08/2024 14:54 JEANIE HARP [facility]
--- OUTSIDE RECORDS SUMMARY | 2024-05-09 10:40 | XMS_ITS | Encounter Summary ---
Author Name [facility] [place] [facility] [facility] [place] Address [address] [place] [address] Care Team Providers Care Foundry Patternmaker Name Role Phone JUAN CARLOS BRENNAN Primary [...] MEDICARE ADVANTAGE MCR (WNR) Aug 30, 2022 [id number] GERDA ARAGON PATIENT [employer] MCR (WNR) MEDICARE ADVANTAGE MCR (WNR) Aug 30, 2022 [id number] [phone] GERDA ARAGON PATIENT MEDICARE (WNR) MEDICARE (M) PART A Jun 30, 2017 PART A [id number] [phone] GERDA ARAGON PATIENT MEDICARE (WNR) MEDICARE (M) PART B Jun 30, 2017 PART B [id number] GERDA ARAGON PATIENT MEDICARE (WNR) MEDICARE (M) PART A Jun 30, 2017 PART A [id number] [phone] GERDA ARAGON PATIENT MEDICARE (WNR) MEDICARE (M) PART B Jun 30, 2017 PART B [id number] GERDA ARAGON PATIENT [employer] MCR (WNR) MEDICARE ADVANTAGE [facility] (WNR) Sep 30, 2023 [id number] GERDA ARAGON PATIENT Selected Encounter This section includes the information on record at [place] for the Encounter. 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 Date/Time Primary/Secondary Diagnosis Diagnosis Name Provider Source May 09, 2024 03:59 PM PRIMARY Segmental and somatic dysfunction of cervical region MORRIS RICH [facility] May 09, 2024 03:59 PM SECONDARY Cervicalgia MORRIS RICH [facility] May 09, 2024 03:59 PM SECONDARY Other intervertebral disc degeneration, lumbosacral region MORRIS RICH [facility] May 09, 2024 03:59 PM SECONDARY Pain in thoracic spine MORRIS RICH [facility] May 09, 2024 03:59 PM SECONDARY Segmental and somatic dysfunction of lumbar region MORRIS RICH [facility] May 09, 2024 03:59 PM SECONDARY Segmental and somatic dysfunction of pelvic region MORRIS RICH [facility] May 09, 2024 03:59 PM SECONDARY Segmental and somatic dysfunction of thoracic region MORRIS RICH [facility] Plan of Treatment: Future Appointments (+ 6 months) and Future Tests (+/- 45 days) The Plan of Treatment section includes future care activities for the patient from all [place] treatmentfacilities. This section includes future appointments and future orders which are active, pending or scheduled. Future Appointments This section includes appointments that were scheduled to occur 6 months from the date of the Encounter, up to a maximum of 20 appointments. The data comes from all [place] treatment facilities. Appointment Date/Time Appointment Type Appointme nt Facility Name May 10, 2024 08:20 AM [facility] [facility] May 10, 2024 02:00 PM [facility] May 17, 2024 03:00 PM [facility] May 18, 2024 08:20 AM [facility] May 30, 2024 03:15 PM [facility] [place] [facility] May 31, 2024 08:20 AM [facility] [place] [facility] May 31, 2024 03:00 PM [facility] [place] Jun 06, 2024 08:00 AM [facility] Jun 07, 2024 08:00 AM [facility] [place] Jun 14, 2024 08:20 AM [facility] [place] Jun 14, 2024 08:30 AM [facility] [place] Jun 15, 2024 01:40 PM [facility] [place] [facility] Jun 16, 2024 09:00 AM [facility] [place] [facility] Jun 21, 2024 01:40 PM [facility] [place] Jul 05, 2024 09:40 AM [facility] [place] Jul 17, 2024 11:00 AM [facility] [place] 2024 09:30 AM [facility] [place] 2024 09:40 AM [facility] [place] Jul 31, 2024 11:00 AM [facility] [place] [facility] Aug 01, 2024 11:00 AM [facility] - MED[facility]INE [facility] Lab Results: +/- 30 days of the encounter This section includes the Chemistry and Hematology Lab Results on record with [place] for the patient. Radiology Reports and Pathology Reports are provided separately, in subsequent sections. Lab Results This section contains the Chemistry/Hematology Results that were resulted 30 days before or 30 daysafter the date of the Encounter. Date/Time Source Result Type Result - Unit Interpretation Reference Range Specimen Type Comment May 09, 2024 03:25 PM [facility] BASIC METABOLIC PANEL PLASMA Specimen Type: PLASMA No comment entered. Ordering Provider: FELICE BRENNAN Report Released Date/Time: May 09, 2024 01:54 PM Reporting Lab: [place] [facility] [address] [place] [address] Performing Lab: [place] [facility] [address] [place] [address] CREATININE 0.80 mg/dL 0.6-1.1 UREA NITROGEN 17 [...] Height Weight Body Mass Index Source May 09, 2024 03:40 PM 97.9 65 135/84 [facility] May 09, 2024 08:31 AM 98.9 76 129/83 18 96 4 69.0 178.2 26 [facility] Social History: Smoking Status (Most current) and Tobacco Use (All prior to encounter date) This section includes the most current, and the historical, smoking and tobacco- related health factors from the [place] facility where the Encounter took place. Current Smoking Status This section includes the most current smoking, or tobacco-related health factor, from the [place] facility where the Encounter took place. Date/Time Current Smoking Status Comment Facil ity January 21, 2024 10:00 AM VA-TOBACCO FORMER USER [facility] Tobacco Use History This section includes a history of the smoking, or tobacco-related health factors, that were collected on or before the date of the Encounter. The data comes from the [place] facility where the Encounter took place. Date/Time Smoking Status/Tobacco Use Comment F acility January 21, 2024 10:00 AM MA-TOBACCO QUIT 5 TO < 15 YRS [facility] January 27, 2023 12:31 PM VA-TOBACCO FORMER USER [facility] January 27, 2023 12:31 PM MA-TOBACCO QUIT 15 YRS OR MORE [facility] Advance Directives: All historical and current Section Date Range: From patient's date of to the date document was created. This section includes ALL of a patient's completed or amended [place] Advance and Rescinded Directives. The entries below indicate that a directive exists for the patient, but an actual copy is not included with this document. The data comes from all [place] facilities. Date Advance Directives Provider Source May 14, 2022 ADVANCE DIRECTIVE BERTHA NAZARIO [facility] Feb 05, 2017 ADVANCE DIRECTIVE DISCUSSION PEG SORENSEN [facility] Radiology Reports: +/- 30 days [...] the Encounter. The data comes from all [place] treatment facilities. Date/Time Radiology Report Provider Source May 30, 2024 03:32 PM MRI BRAIN W/O&W CO NT: GERDA ARAGON [id number] -1950 F Exm Date: MAY 30, 2024@15:32 Req Phys: JUAN CARLOS BRENNAN Loc: OUTSIDE PB-MRI (Req'g Loc) Img Loc: OUTSIDE PB-MRI Service: Unknown Screen: Patient is unable to answer or is unsure Screen Comment: OUTSIDE STUDY (Case [id number] COMPLETE) MRI BRAIN W/O&W CONT (MRI Detailed) CPT:69042 Reason for Study: Exam imported from outside Clinical History: Original Data for Imported Study Patient Name: GERDA ARAGON Date: 1950 Sex: F Study Date: 05/30/24 Study Time: 03:32:05 Study Description: MR head wo/w con [id number] Referring Physician: UNKNOWN, UNKNOWN Series 1: 27 [...] 3D Saved State - AutoSave Acquisition site: [facility] Report Status: Electronically Filed Date Reported: JUL 05, 2024 Report: Electronically generated report for outside study. Impression: Electronically generated report for outside study. 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 Degenerative changes sacroiliac joints. Degenerative changes also seen in the visualized lumbar spine. There is no evidence of a fracture or dislocation. No bony destruction. 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 Date/Time Encounter Note(s) Provider Source May 09, 2024 03:51 PM CHIROPRACTIC NOTE: LOCAL TITLE: CHIROPRACTIC FOLLOW UP NOTE PB STANDARD TITLE: CHIROPRACTIC NOTE DATE OF NOTE: MAY 09, 2024@15:51 ENTRY DATE: MAY 09, 2024@15:51:34 AUTHOR: MORRIS RICH COSIGNER: URGENCY: STATUS: COMPLETED CHIROPRACTIC FOLLOW-UP VISIT Patient's language preference for health information: Swedish Other Communication Methods Needed: SUBJECTIVE: The is a 73 year old FEMALE being seen in the Chiropractic clinic for follow-up visit. The states her midback continues to be painful with a few days of relief after her adjustment last week. Today, the rates her pain level as a 6/10. PAST MEDICAL HISTORY: see problem list SOCIO-ECONOMIC [...] the restricted AROM. LUMBAR/THORACIC SPINE: MOVEMENT/POSTURE: [facility] ambulates without issue. SEGMENTAL DYSFUNCTION: Joint dysfunction [...] associated myofascial pain. PLAN: This is the second follow up treatment for the of a planned six treatments. Due to persistent neck and back pain, we will treat [facility] 1x per week for 6 weeks. Prognosis: [...] exercise program and to commit to a devulcanizer charger exercise plan. /sarabjit/ SEN [facility] Signed: 05/09/2024 15:58 MORRIS RICH
--- OUTSIDE RECORDS SUMMARY | 2024-05-10 03:20 | XMS_ITS | Encounter Summary ---
Author Name [facility] [place] [facility] [place] Address [address] [place] [address] Care Team Providers Care Furniture Detailer Name Role Phone JUAN CARLOS BRENNAN Primary Care Provider LE uHa Primary Care Provider Unavailabl e Insurance Providers: [...] MEDICARE ADVANTAGE MCR (WNR) Aug 30, 2022 [id number] [phone] GERDA ARAGON PATIENT HUMANA MCR (WNR) MEDICARE ADVANTAGE MCR (WNR) Aug 30, 2022 [id number] GERDA ARAGON PATIENT MEDICARE (WNR) MEDICARE (M) PART A Jun 30, 2017 PART A [id number] [phone] GERDA ARAGON PATIENT MEDICARE (WNR) MEDICARE (M) PART B Jun 30, 2017 PART B [id number] GERDA ARAGON PATIENT MEDICARE (WNR) MEDICARE (M) PART A Jun 30, 2017 PART A [id number] GERDA ARAGON PATIENT MEDICARE (WNR) MEDICARE (M) PART B Jun 30, 2017 PART B [id number] GERDA ARAGON PATIENT WELLCARE MCR (WNR) MEDICARE ADVANTAGE [facility] (WNR) Sep 30, 2023 [id number] GERDA ARAGON PATIENT Selected Encounter This section includes the information on record at [place] for the Encounter. Date/Time Encounter Type Encounter Description Reason Provider Source May 10, 2024 08:20 AM CHIROPRACT MAN 3-4 [employer] ICD-10-CM M99.01 Segmental and somatic dysfunction of cervical region MORRIS RICH Encounter Template Text not used by [facility] Assessments - Encounter Diagnoses This section includes the primary and secondary diagnoses documented for the Encounter. Date/Time Primary/Secondary Diagnosis Diagnosis Name Provider Source May 10, 2024 08:35 AM PRIMARY Segmental and somatic dysfunction of cervical region [facility]RIS RICH [facility] May 10, 2024 08:35 AM SECONDARY Cervicalgia [facility] RICH [facility] May 10, 2024 08:35 AM SECONDARY Other intervertebral disc degeneration, lumbosacral region M[facility]RIS RICH [facility] May 10, 2024 08:35 AM SECONDARY Pain in thoracic spine MORRIS RICH [facility] May 10, 2024 08:35 AM SECONDARY Segmental and somatic dysfunction of lumbar region M[facility]RIS RICH [facility] May 10, 2024 08:35 AM SECONDARY Segmental and somatic dysfunction of pelvic region MORRIS RICH [facility] May 10, 2024 08:35 AM SECONDARY Segmental and somatic dysfunction of thoracic region MORRIS RICH [facility] Plan of Treatment: Future Appointments (+ 6 months) and Future Tests (+/- 45 days) The Plan of Treatment section includes future care activities for the patient from all [place] treatmentfacilities. This section includes future appointments and future orders which are active, pending or scheduled. Future Appointments This section includes appointments that were scheduled to occur 6 months from the date of the Encounter, up to a maximum of 20 appointments. The data comes from all [place] treatment facilities. Appointment Date/Time Appointment Type Appointme nt Facility Name May 17, 2024 03:00 PM [facility] [place] [facility] [facility] May 18, 2024 08:20 AM [facility] [place] [facility] May 30, 2024 03:15 PM [place] [facility] May 31, 2024 08:20 AM [facility] May 31, 2024 03:00 PM [facility] Jun 06, 2024 08:00 AM [facility] Jun 07, 2024 08:00 AM [facility] Jun 14, 2024 08:20 AM [facility] Jun 14, 2024 08:30 AM [facility] Jun 15, 2024 01:40 PM [facility] [place] [facility] [place] [facility] Jun 16, 2024 09:00 AM [facility] Jun 21, 2024 01:40 PM [facility] Jul 05, 2024 09:40 AM [facility] Jul 17, 2024 11:00 AM [facility] 2024 09:30 AM [facility] 2024 09:40 AM [facility] Jul 31, 2024 11:00 AM [facility] Aug 01, 2024 11:00 AM [facility] Aug 14, 2024 10:00 AM [facility] Aug 16, 2024 09:40 AM [facility]ATORY - MEDICINE [facility] Lab Results: +/- 30 days of the encounter This section includes the Chemistry and Hematology Lab Results on record with [place] for the patient. Radiology Reports and Pathology Reports are provided separately, in subsequent sections. Lab Results This section contains the Chemistry/Hematology Results that were resulted 30 days before or 30 daysafter the date of the Encounter. Date/Time Source Result Type Result - Unit Interpretation Reference Range Specimen Type Comment May 09, 2024 03:25 PM [facility] BASIC METABOLIC PANEL PLASMA Specimen Type: PLASMA No comment entered. Ordering Provider: FELICE BRENNAN Report Released Date/Time: May 09, 2024 01:54 PM Reporting Lab: [place] [facility] [address] [place] [address] Performing Lab: [place] [facility] [address] [place] [address] CREATININE 0.80 mg/dL 0.6-1.1 UREA NITROGEN 17 [...] Height Weight Body Mass Index Source May 10, 2024 08:20 AM 98.1 67 152/91 [facility] Social History: Smoking Status (Most current) and Tobacco Use (All prior to encounter date) This section includes the most current, and the historical, smoking and tobacco- related health factors from the [place] facility where the Encounter took place. Current Smoking Status This section includes the most current smoking, or tobacco-related health factor, from the [place] facility where the Encounter took place. Date/Time Current Smoking Status Comment Facil ity January 21, 2024 10:00 AM [place]-TOBACCO FORMER USER [facility] Tobacco Use History This section includes a history of the smoking, or tobacco-related health factors, that were collected on or before the date of the Encounter. The data comes from the [place] facility where the Encounter took place. Date/Time Smoking Status/Tobacco Use Comment F acility January 21, 2024 10:00 AM [place]-TOBACCO QUIT 5 TO < 15 YRS [facility] January 27, 2023 12:31 PM [place]-TOBACCO FORMER USER [facility] January 27, 2023 12:31 PM [place]-TOBACCO QUIT 15 YRS OR MORE [facility] Advance Directives: All historical and current Section Date Range: From patient's date of to the date document was created. This section includes ALL of a patient's completed or amended [place] Advance and Rescinded Directives. The entries below indicate that a directive exists for the patient, but an actual copy is not included with this document. The data comes from all [place] facilities. Date Advance Directives Provider Source May 14, 2022 ADVANCE DIRECTIVE BERTHA NAZARIO [facility] Feb 05, 2017 ADVANCE DIRECTIVE DISCUSSION PEG SORENSEN [facility] Radiology Reports: +/- 30 days of the [...] the Encounter. The data comes from all [place] treatment facilities. Date/Time Radiology Report Provider Source May 30, 2024 03:32 PM MRI BRAIN W/O&W CO NT: GERDA ARAGON [id number] -1950 F Exm Date: MAY 30, 2024@15:32 Req Phys: JUAN CARLOS BRENNAN Loc: OUTSIDE PB-MRI (Req'g Loc) Img Loc: OUTSIDE PB-MRI Service: Unknown Screen: Patient is unable to answer or is unsure Screen Comment: OUTSIDE STUDY (Case [id number] COMPLETE) MRI BRAIN W/O&W CONT (MRI Detailed) CPT:09945 Reason for Study: Exam imported from outside Clinical History: Original Data for Imported Study Patient Name: GERDA ARAGON Date: 1950 Sex: F Study Date: 05/30/24 Study Time: 03:32:05 Study Description: MR head wo/w con 33545 Referring Physician: UNKNOWN, UNKNOWN Series 1: 27 [...] 3D Saved State - AutoSave Acquisition site: [facility] Report Status: Electronically Filed Date Reported: JUL 05, 2024 Report: Electronically generated report for outside study. Impression: Electronically generated report for outside study. VERIFIED BY: / *ELECTRONICALLY FILED* [place] [facility] May 08, 2024 03:37 PM HIP W/PELVIS 2-3 V IEWS RIGHT: GERDA ARAGON [id number] -1950 F Exm Date: MAY 08, 2024@15:37 Req Phys: JUAN CARLOS BRENNAN Pat Loc: PB-MICHAEL PACT [facility]ATHIAS [facility] (Req Img Loc: PB-XRAY [facility] Service: [place] [address] (Case [id number] COMPLETE) HIP W/PELVIS 2-3 VIEWS RIGHT (RAD Detailed) CPT:11243 Reason for Study: right hip pain Clinical History: need for injections Report Status: Verified Date Reported: MAY 08, 2024 Date Verified: MAY 08, 2024 Physical Therapy Aid E-Sig: Report: Pelvis and right hip There are degenerative change involving the right hip similar to the left hip. Degenerative changes sacroiliac joints. Degenerative changes also seen in the visualized lumbar spine. There is no evidence of a fracture or dislocation. No bony destruction. 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 Date/Time Encounter Note(s) Provider Source May 10, 2024 08:28 AM CHIROPRACTIC NOTE: LOCAL TITLE: CHIROPRACTIC FOLLOW UP NOTE PB STANDARD TITLE: CHIROPRACTIC NOTE DATE OF NOTE: MAY 10, 2024@08:28 ENTRY DATE: MAY 10, 2024@08:28:18 AUTHOR: MORRIS RICH COSIGNER: URGENCY: STATUS: COMPLETED CHIROPRACTIC FOLLOW-UP VISIT Patient's language preference for health information: Azerbaijani Other Communication Methods Needed: SUBJECTIVE: The is a 73 year old FEMALE being seen in the Chiropractic clinic for follow-up visit. The reports decreasing midback pain since her last adjustment, but describes her midback as catch with movement. Today, the rates her pain level as a 4/10. PAST MEDICAL HISTORY: see problem list SOCIO-ECONOMIC [...] the restricted AROM. LUMBAR/THORACIC SPINE: MOVEMENT/POSTURE: The [place] ambulates without issue. SEGMENTAL DYSFUNCTION: Joint dysfunction [...] associated myofascial pain. PLAN: This is the third follow up treatment for the of a [...] exercise program and to commit to a snf exercise plan. /sarabjit/ [facility] Signed: 05/10/2024 08:34 MORRIS RICH
--- OUTSIDE RECORDS SUMMARY | 2024-05-10 09:00 | XMS_ITS | Encounter Summary ---
Author Name [facility] [place] Organization [facility] [place] Address [address] [place] [address] Care Team Providers Care Back Padder Name Role Phone JUAN CARLOS BRENNAN Primary [...] MEDICARE ADVANTAGE MCR (WNR) Aug 30, 2022 [id number] GERDA TEJADA PATIENT [employer]MANA MCR (WNR) MEDICARE ADVANTAGE MCR (WNR) Aug 30, 2022 [id number] GERDA TEJADA PATIENT MEDICARE (WNR) MEDICARE (M) PART A Jun 30, 2017 PART A [id number] GERDA TEJADA PATIENT MEDICARE (WNR) MEDICARE (M) PART B Jun 30, 2017 PART B [id number] GERDA TEJADA PATIENT MEDICARE (WNR) MEDICARE (M) PART A Jun 30, 2017 PART A [id number] GERDA TEJADA PATIENT MEDICARE (WNR) MEDICARE (M) PART B Jun 30, 2017 PART B [id number] GERDA TEJADA PATIENT [facility] (WNR) MEDICARE ADVANTAGE [facility] (WNR) Sep 30, 2023 [id number] GERDA TEJADA PATIENT Selected Encounter This section includes the information on record at [place] for the Encounter. Date/Time Encounter Type Encounter Description Reason Provider Source May 10, 2024 02:00 PM HOT OR COLD PACKS THERAPY PHYSICAL THERAPY ICD-10-CM M13.812 Other specified arthritis, left shoulder JONATHAN LAWTON [facility] Encounter Template Text not used by [place] Assessments - Encounter Diagnoses This section includes the primary and secondary diagnoses documented for the Encounter. Date/Time Primary/Secondary Diagnosis Diagnosis Name Provider Source May 10, 2024 02:46 PM PRIMARY Other specified arthritis, left shoulder DOUG LAWTON [facility] Plan of Treatment: Future Appointments (+ 6 months) and Future Tests (+/- 45 days) The Plan of Treatment section includes future care activities for the patient from all [place] treatmentfacilities. This section includes future appointments and future orders which are active, pending or scheduled. Future Appointments This section includes appointments that were scheduled to occur 6 months from the date of the Encounter, up to a maximum of 20 appointments. The data comes from all [place] treatment facilities. Appointment Date/Time Appointment Type Appointme nt Facility Name May 17, 2024 03:00 PM AM[facility]ULATORY [facility]INE [facility] May 18, 2024 08:20 AM [facility] MEDICINE [facility] May 30, 2024 03:15 PM [facility]ORY [facility]INE [facility] May 31, 2024 08:20 AM [facility] [place] [facility] [facility] [facility] May 31, 2024 03:00 PM [facility] Jun 06, 2024 08:00 AM [facility]BULATORY - MEDICINE [facility] Jun 07, 2024 08:00 AM AMBULATORY - MEDICINE [facility] Jun 14, 2024 08:20 AM AMBULATORY - MEDICINE [facility] Jun 14, 2024 08:30 AM AMBULATORY - MEDICINE [facility] Jun 15, 2024 01:40 PM AM[facility]ORY - [facility]ICINE [place] [facility] Jun 16, 2024 09:00 AM AMBULATORY - MEDICINE [facility] Jun 21, 2024 01:40 PM AMBULATORY - MEDICINE [facility] Jul 05, 2024 09:40 AM AMBULATORY - MEDICINE [facility] Jul 17, 2024 11:00 AM AMBULATORY - MEDICINE [facility] 2024 09:30 AM AMBULATORY - MEDICINE [facility] 2024 09:40 AM [facility]INE [facility] Jul 31, 2024 11:00 AM AMBULATORY - MEDICINE [facility] Aug 01, 2024 11:00 AM AMBULATORY - MEDICINE [facility] Aug 14, 2024 10:00 AM AMBULATORY - MEDICINE [facility] Aug 16, 2024 09:40 AM AMBULATORY - MEDICINE [facility] Lab Results: +/- 30 days of the encounter This section includes the Chemistry and Hematology Lab Results on record with [place] for the patient. Radiology Reports and Pathology Reports are provided separately, in subsequent sections. Lab Results This section contains the Chemistry/Hematology Results that were resulted 30 days before or 30 daysafter the date of the Encounter. Date/Time Source Result Type Result - Unit Interpretation Reference Range Specimen Type Comment May 09, 2024 03:25 PM [facility] BASIC METABOLIC PANEL PLASMA Specimen Type: PLASMA No comment entered. Ordering Provider: FELICE BRENNAN Report Released Date/Time: May 09, 2024 01:54 PM Reporting Lab: [place] [facility] [address] [place] [address] Performing Lab: [place] [facility] [address] [place] [address] CREATININE 0.80 mg/dL 0.6-1.1 UREA NITROGEN 17 [...] 10, 2024 08:20 AM 98.1 67 152/91 [facility] Social History: Smoking Status (Most current) and Tobacco Use (All prior to encounter date) This section includes the most current, and the historical, smoking and tobacco- related health factors from the [place] facility where the Encounter took place. Current Smoking Status This section includes the most current smoking, or tobacco-related health factor, from the [place] facility where the Encounter took place. Date/Time Current Smoking Status Comment Facil ity January 21, 2024 10:00 AM [place]-TOBACCO FORMER USER [facility] Tobacco Use History This section includes a history of the smoking, or tobacco-related health factors, that were collected on or before the date of the Encounter. The data comes from the [place] facility where the Encounter took place. Date/Time Smoking Status/Tobacco Use Comment F acility January 21, 2024 10:00 AM VA-TOBACCO QUIT 5 TO < 15 YRS [facility] January 27, 2023 12:31 PM VA-TOBACCO FORMER USER [facility] January 27, 2023 12:31 PM [place]-TOBACCO QUIT 15 YRS OR MORE [facility] Advance Directives: All historical and current Section Date Range: From patient's date of to the date document was created. This section includes ALL of a patient's completed or amended [place] Advance and Rescinded Directives. The entries below indicate that a directive exists for the patient, but an actual copy is not included with this document. The data comes from all [place] facilities. Date Advance Directives Provider Source May 14, 2022 ADVANCE DIRECTIVE BERTHA NAZARIO [facility] Feb 05, 2017 ADVANCE DIRECTIVE DISCUSSION PEG SORENSEN [facility] Radiology Reports: +/- 30 days of [...] the Encounter. The data comes from all [place] treatment facilities. Date/Time Radiology Report Provider Source May 30, 2024 03:32 PM MRI BRAIN W/O&W CO NT: GERDA TEJADA [id number] -1950 F Exm Date: MAY 30, 2024@15:32 Req Phys: JUAN CARLOS BRENNAN Loc: OUTSIDE PB-MRI (Req'g Loc) Img Loc: OUTSIDE PB-MRI Service: Unknown Screen: Patient is unable to answer or is unsure Screen Comment: OUTSIDE STUDY (Case [id number] COMPLETE) MRI BRAIN W/O&W CONT (MRI Detailed) CPT:45584 Reason for Study: Exam imported from outside Clinical History: Original Data for Imported Study Patient Name: GERDA TEJADA Date: 1950 Sex: F Study Date: 05/30/24 Study Time: 03:32:05 Study Description: MR head wo/w con 19300 Referring Physician: UNKNOWN, UNKNOWN Series 1: 27 [...] 3D Saved State - AutoSave Acquisition site: [facility] Report Status: Electronically Filed Date Reported: JUL 05, 2024 Report: Electronically generated report for outside study. Impression: Electronically generated report for outside study. VERIFIED BY: / *ELECTRONICALLY FILED* [facility] RENDON [facility] May 08, 2024 03:37 PM HIP W/PELVIS 2-3 V IEWS RIGHT: GERDA TEJADA [id number] -1950 F Exm Date: MAY 08, 2024@15:37 Req Phys: JUAN CARLOS BRENNAN Pat Loc: PB-MICHAEL PACT [employer] WH (Req Img Loc: PB-XRAY [place] Service: [place] [address] (Case [id number] COMPLETE) HIP W/PELVIS 2-3 VIEWS RIGHT (RAD Detailed) CPT:83301 Reason for Study: right hip pain Clinical History: need for injections Report Status: Verified Date Reported: MAY 08, 2024 Date Verified: MAY 08, 2024 Lead Etl Developer E-Sig: Report: Pelvis and right hip There are degenerative change involving the right hip similar to the left hip. Degenerative changes sacroiliac joints. Degenerative changes also seen in the visualized lumbar spine. There is no evidence of a fracture or dislocation. No bony destruction. 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 Date/Time Encounter Note(s) Provider Source May 10, 2024 01:52 PM PHYSICAL THERAPY N OTE: LOCAL TITLE: PHYSICAL THERAPY NOTE PB STANDARD TITLE: PHYSICAL THERAPY NOTE DATE OF NOTE: MAY 10, 2024@13:52 ENTRY DATE: MAY 10, 2024@13:52:23 AUTHOR: DOUG LAWTON COSIGNER: URGENCY: STATUS: COMPLETED Diagnosis: Other specified Arthritis, left Shoulder Subjective reports that her shoulder is doing okay, but she is having back pain due to recent traveling. Objective Therapeutic exercise: shoulder sara into flexion, scaption, abduction 3 minutes each wall slide flexion and abduction 20x each Shoulder Row with scapular retraction 20x green theraband Shoulder extension with scapular retraction 20x green theraband Shoulder internal rotation 2x15 green theraband Shoulder external rotation 2x15 green theraband shoulder flexion to 90 degrees 2x10 0 lbs. Sholder press 2x10 supine wand flexion 20x supine wand chest press 30x supine serratus punch 30x 2 lbs. wall ball CW and CCW 30 seconds each Cryotherapy: Thermx to left shoulder for 10 minutes, 34 deg, 20 mmHg intermittent compression Assessment Exercise needed to be modified so that Mrs. Tejada could be seated due to reports of back pain. She was able to maintain her progress with exercises today after hiatus from therapy due to traveling. She continues to have difficulty with shoulder elevation and has crepitus with active shoulder abduction. Nichols also reported that she has been having trouble with knee pain. Will plan on evaluation of knee pain next visit. Plan Will continue to progress through her [...] order to decrease pain and improve ADLs. 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 Total Treatment Time: 53 minutes Therapeutic exercise: 43 minutes Hot/cold pack: 10 minutes Visit /sarabjit/ Doug Lawton PT, DPT [facility] Signed: 05/10/2024 14:54 [facility]
--- OUTSIDE RECORDS SUMMARY | 2024-05-17 10:00 | XMS_ITS | Encounter Summary ---
Author Name [facility] [place] Address [address] [place] [address] Care Team Providers Care Pump Installation And Servicer Name Role Phone JUAN CARLOS BRENNAN Primary [...] MEDICARE ADVANTAGE MCR (WNR) Aug 30, 2022 [id number] GERDA TEJADA PATIENT [employer]MA[employer] MCR (WNR) MEDICARE ADVANTAGE MCR (WNR) Aug 30, 2022 [id number] GERDA TEJADA PATIENT MEDICARE (WNR) MEDICARE (M) PART A Jun 30, 2017 PART A [id number] GERDA TEJADA PATIENT MEDICARE (WNR) MEDICARE (M) PART B Jun 30, 2017 PART B [id number] GERDA TEJADA PATIENT MEDICARE (WNR) MEDICARE (M) PART A Jun 30, 2017 PART A [id number] GERDA TEJADA PATIENT MEDICARE (WNR) MEDICARE (M) PART B Jun 30, 2017 PART B [id number] GERDA TEJADA PATIENT [facility] (WNR) MEDICARE ADVANTAGE [facility] (WNR) Sep 30, 2023 [id number] GERDA TEJADA PATIENT Selected Encounter This section includes the information on record at [place] for the Encounter. Date/Time Encounter Type Encounter Description Reason Provider Source May 17, 2024 03:00 PM THERAPEUTIC EXERCISES PHYSICAL THERAPY ICD-10-CM M13.812 Other specified arthritis, left shoulder JONATHAN LAWTON [facility] Encounter Template Text not used by [place] Assessments - Encounter Diagnoses This section includes the primary and secondary diagnoses documented for the Encounter. Date/Time Primary/Secondary Diagnosis Diagnosis Name Provider Source May 17, 2024 04:00 PM PRIMARY Other specified arthritis, left shoulder DOUG LAWTON [facility] May 17, 2024 04:00 PM SECONDARY Pain in right knee DOUG LAWTON [facility] Plan of Treatment: Future Appointments (+ 6 [...] Appointment Type Appointme nt Facility Name May 18, 2024 08:20 AM AMBULATORY - [facility]ICINE [facility] May 30, 2024 03:15 PM [facility] [place] [facility] May 31, 2024 08:20 AM [facility] May 31, 2024 03:00 PM [facility] - [facility]INE [facility] Jun 06, 2024 08:00 AM [facility]ORY - MED[facility]INE [facility] Jun 07, 2024 08:00 AM [facility] - [facility]INE [facility] Jun 14, 2024 08:20 AM AMBULATORY - MEDICINE [facility] Jun 14, 2024 08:30 AM AMBULATORY - MEDICINE [facility] Jun 15, 2024 01:40 PM AM[facility]ORY - [facility] [place] [facility] Jun 16, 2024 09:00 AM [facility] - [facility]INE [facility] Jun 21, 2024 01:40 PM AMBULATORY - MEDICINE [facility] Jul 05, 2024 09:40 AM AMBULATORY - MEDICINE [facility] Jul 17, 2024 11:00 AM AMBULATORY - MEDICINE [facility] 2024 09:30 AM AMBULATORY - MEDICINE [facility] 2024 09:40 AM AMBULATORY - MEDICINE [facility] Jul 31, 2024 11:00 AM AMBULATORY - MEDICINE [facility] Aug 01, 2024 11:00 AM AMBULATORY - MEDICINE [facility] Aug 14, 2024 10:00 AM AMB[facility]ORY - MEDICINE [facility] Aug 16, 2024 09:40 AM AMBULATORY - MEDICINE [facility] Aug 28, 2024 11:00 AM AMBULATORY - MEDICINE [facility] Lab Results: +/- 30 days of the [...] Type Comment May 09, 2024 03:25 PM [facility] BASIC METABOLIC PANEL PLASMA Specimen Type: PLASMA No comment entered. Ordering Provider: FELICE BRENNAN Report Released Date/Time: May 09, 2024 01:54 PM Reporting Lab: [place] [facility] [address] [place] [address] Performing Lab: [place] [facility] [address] [place] [address] CREATININE 0.80 mg/dL 0.6-1.1 UREA NITROGEN 17 mg/dL 9-25 GLUCOSE 112 mg/dL H 72-99 SODIUM 141 meq/L 136-145 POTASSIUM 3.8 meq/L 3.5-5 CHLORIDE 108 meq/L H 98-107 CARBON DIOXIDE 22 meq/L 22-31 CALCIUM 9.7 mg/dL 8.4-10.4 EGFR (CKD-EPI 2020) 79 Social History: Smoking Status (Most current) and [...] 21, 2024 10:00 AM VA-TOBACCO FORMER USER [facility] Tobacco Use History This section includes a history of the smoking, or tobacco-related health factors, that were collected on or before the date of the Encounter. The data comes from the [place] facility where the Encounter took place. Date/Time Smoking Status/Tobacco Use Comment F acility January 21, 2024 10:00 AM VA-TOBACCO QUIT 5 TO < 15 YRS [facility] January 27, 2023 12:31 PM VA-TOBACCO FORMER USER [facility] January 27, 2023 12:31 PM VA-TOBACCO QUIT 15 YRS OR MORE [facility] Advance Directives: All historical and current Section [...] May 14, 2022 ADVANCE DIRECTIVE BERTHA NAZARIO [facility] Feb 05, 2017 ADVANCE DIRECTIVE DISCUSSION PEG SORENSEN [facility] Radiology Reports: +/- 30 days of [...] 03:32 PM MRI BRAIN W/O&W CO NT: EGRDA TEJADA [id number] -1950 F Exm Date: MAY 30, 2024@15:32 Req Phys: FELICE BRENNANE Eufemia Pat Loc: OUTSIDE PB-MRI (Req'g Loc) Img Loc: OUTSIDE PB-MRI Service: Unknown Screen: Patient is unable to answer or is unsure Screen Comment: OUTSIDE STUDY (Case [id number] COMPLETE) MRI BRAIN W/O&W CONT (MRI Detailed) CPT:10700 Reason for Study: Exam imported from outside Clinical History: Original Data for Imported Study Patient Name: GERDA TEJADA Date: 1950 Sex: F Study Date: 05/30/24 Study Time: 03:32:05 Study Description: MR head wo/w con [id number] Referring Physician: UNKNOWN, UNKNOWN Series 1: 27 [...] 3D Saved State - AutoSave Acquisition site: [facility] Report Status: Electronically Filed Date Reported: JUL 05, 2024 Report: Electronically generated report for outside study. Impression: Electronically generated report for outside study. 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 Degenerative changes sacroiliac joints. Degenerative changes also seen in the visualized lumbar spine. There is no evidence of a fracture or dislocation. No bony destruction. 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 Date/Time Encounter Note(s) Provider Source May 17, 2024 02:54 PM PHYSICAL THERAPY N OTE: LOCAL TITLE: PHYSICAL THERAPY NOTE PB STANDARD TITLE: PHYSICAL THERAPY NOTE DATE OF NOTE: MAY 17, 2024@14:54 ENTRY DATE: MAY 17, 2024@14:54:08 AUTHOR: DOUG LAWTON EXP COSIGNER: URGENCY: STATUS: COMPLETED Diagnosis: Other specified Arthritis, left Shoulder; right knee pain Subjective presents to physical therapy with complaints of right knee pain that began spring. She does have a history of right TKA in 2022. She reports that her right knee has been increasing in pain. She has seen the orthopedic physician which cleared her for fracture. She reports 7/10 pain in her right knee, best 2/10, and worst 8/10. She reports symptom management of right knee pain with pain patches and hot tube. She states increased pain with walking. She denies use of an AD at this time. She reports 3/10 in her left shoulder. Objective Examination Gait: right antalgic gait Edema: -Midpatellar: R: 16.5 Upon palpation the patient tenderness is noted in right LCL, fibular head, distal medial hamstring The following active ROM observed in degrees Knee extension Left WFL Right -5 Knee flexion Left WFL Right 130 The following manual muscle tests on scale of 5 hip abduction Left 4/5 Right 4/5 hip adduction Left 4/5 Right 4/5 hip flexion Left 4/5 Right 4/5 knee flexion Left 5/5 Right 5/5 knee extension Left 5/5 Right 5/5 dorsiflexion Left 5/5 Right 5/5 Short sitting position used with knee flexion and hip adduction/abduction manual muscle tests. Special tests: Valgus stress- negative Varus stress- minor laxity, but firm end feel Therapeutic exercise: calf stretch 3x1 minute knee extension stretch on chair 3 min 5 lbs. Quad set 15x shoulder sara into flexion, scaption, abduction 3 minutes each wall slide flexion and abduction 20x each Shoulder Row with scapular retraction 20x green theraband Shoulder extension with scapular retraction 20x green theraband Shoulder internal rotation 2x15 green theraband Shoulder external rotation 2x15 green theraband shoulder flexion to 90 degrees 2x10 0 lbs. Sholder press 2x10 1 lbs. Prosthetic consult placed for large knee brace. Given to stephanie out of [facility] supply Patient education: was given exercises to address right knee pain and promote function. She was given handout and verbalized understanding. Assessment Evaluated veterans right knee due to reports of knee pain. She was cleared by her orthopedic doctor for acute fracture. She demonstrates a lack of full knee extension and has minimal laxity during varus testing, but a firm end feel. She will benefit from physical therapy services to address the above deficits. She will also benefit from a knee brace to provide lateral support. Goals were updated below to reflect addition of treatment of right knee pain. Mrs. Tejada was also able to maintain her progress with shoulder strengthening exercises today with no reports of increased shoulder pain. Plan Will continue to progress through her current physical therapy plan of care to address her shoulder pain. Short term goals to be achieved in weeks: 1) Patient will be (I) with home exercise. -Progress: met 2) Patient will decrease pain complaints by 25% or more in order to improve ADL performance. -Progress: partially met 3) Patient will increase UE strength by 1/2 grade or more overall in order to decrease pain and improve ADLs. -Progress: met detention goals to be achieved in weeks: 1) Patient will have WNL bilateral shoulder ROM to decrease pain and improve functional mobility. -Progress: partially met 2) Patient will increase UE strength by +1 Manual Muscle Grade or more overall. -Progress: partially met 3) Patient will be decrease his QuickDASH score to 31% or lower for improved upper extremity function. -Progress: not met 4) Patient will demonstrated full extension of her right knee to improve ambulation and function. -Progress: not met Treatment Plan: Physical Therapy 1 days per week for 8 weeks. Physical therapy may include: Patient education, therapeutic exercise, therapeutic activities, manual therapy, neuromuscular reeducation, and modalities as indicated. Total Treatment Time: 60 minutes Therapeutic exercise: 40 minutes PT reevaluation: 20 minutes Visit /sarabjit/ Doug Lawton PT, DPT Dawson Dominique [facility] Signed: 05/18/2024 07:44 DOUG LAWTON [facility]
--- OUTSIDE RECORDS SUMMARY | 2024-05-18 03:20 | XMS_ITS | Encounter Summary ---
Author Name [facility] [place] Address [address] [place] [address] Care Team Providers Care Power Equipment Technology Instructor Name Role Phone JUAN CARLOS BRENNAN Primary [...] MEDICARE ADVANTAGE MCR (WNR) Aug 30, 2022 [id number] [phone] GERDA ARAGON PATIENT HU[employer]NA MCR (WNR) MEDICARE ADVANTAGE MCR (WNR) Aug 30, 2022 [id number] [phone] GERDA ARAGON PATIENT MEDICARE (WNR) MEDICARE (M) PART A Jun 30, 2017 PART A [id number] GERDA ARAGON PATIENT MEDICARE (WNR) MEDICARE (M) PART B Jun 30, 2017 PART B [id number] GERDA ARAGON PATIENT MEDICARE (WNR) MEDICARE (M) PART A Jun 30, 2017 PART A [id number] GERDA ARAGON PATIENT MEDICARE (WNR) MEDICARE (M) PART B Jun 30, 2017 PART B [id number] GERDA ARAGON PATIENT [employer] MCR (WNR) MEDICARE ADVANTAGE [facility] (WNR) Sep 30, 2023 [id number] GERDA ARAGON PATIENT Selected Encounter This section includes the information on record at [place] for the Encounter. Date/Time Encounter Type Encounter Description Reason Provider Source May 18, 2024 08:20 AM CHIROPRACT MAN 3-4 REGIONS SCIENCE TUTOR ICD-10-CM M99.01 Segmental and somatic dysfunction of cervical region MORRIS RICH Encounter Template Text not used by [facility] Assessments - Encounter Diagnoses This section includes the primary and secondary diagnoses documented for the Encounter. Date/Time Primary/Secondary Diagnosis Diagnosis Name Provider Source May 18, 2024 08:19 AM PRIMARY Segmental and somatic dysfunction of cervical region [facility] May 18, 2024 08:19 AM SECONDARY Cervicalgia [facility] RICH [facility] May 18, 2024 08:19 AM SECONDARY Other intervertebral disc degeneration, lumbosacral region [facility] R[facility] May 18, 2024 08:19 AM SECONDARY Pain in thoracic spine [facility] R[facility] May 18, 2024 08:19 AM SECONDARY Segmental and somatic dysfunction of lumbar region [facility] R[facility] May 18, 2024 08:19 AM SECONDARY Segmental and somatic dysfunction of pelvic region M[facility]RIS RICH [facility] May 18, 2024 08:19 AM SECONDARY Segmental and somatic dysfunction of thoracic region [facility] RICH [facility] Plan of Treatment: Future Appointments (+ 6 months) and Future Tests (+/- 45 days) The Plan of Treatment section includes future care activities for the patient from all [place] treatmentfacilities. This section includes future appointments and future orders which are active, pending or scheduled. Future Appointments This section includes appointments that were scheduled to occur 6 months from the date of the Encounter, up to a maximum of 20 appointments. The data comes from all [place] treatment facilities. Appointment Date/Time Appointment Type Appointme nt Facility Name May 30, 2024 03:15 PM AMBULATORY - [place]ICINE [place] [facility] May 31, 2024 08:20 AM [facility] [place] [facility] May 31, 2024 03:00 PM [facility] [facility] Jun 06, 2024 08:00 AM [facility] Jun 07, 2024 08:00 AM [facility] Jun 14, 2024 08:20 AM [facility] Jun 14, 2024 08:30 AM [facility] [place] [facility] Jun 15, 2024 01:40 PM AMBULATORY - MEDICINE [place] [facility] Jun 16, 2024 09:00 AM [facility] Jun 21, 2024 01:40 PM [facility] Jul 05, 2024 09:40 AM [facility] Jul 17, 2024 11:00 AM [facility] 2024 09:30 AM [facility] 2024 09:40 AM [facility] Jul 31, 2024 11:00 AM [facility] [place] Aug 01, 2024 11:00 AM [facility] [place] Aug 14, 2024 10:00 AM [facility] [place] Aug 16, 2024 09:40 AM [facility] Aug 28, 2024 11:00 AM [facility] [place] [place] [facility] Aug 31, 2024 09:40 AM AMBULATORY - MEDICINE [facility] Lab Results: +/- 30 days of the encounter This section includes the Chemistry and Hematology Lab Results on record with [place] for the patient. Radiology Reports and Pathology Reports are provided separately, in subsequent sections. Lab Results This section contains the Chemistry/Hematology Results that were resulted 30 days before or 30 daysafter the date of the Encounter. Date/Time Source Result Type Result - Unit Interpretation Reference Range Specimen Type Comment May 09, 2024 03:25 PM [facility] BASIC METABOLIC PANEL PLASMA Specimen Type: PLASMA No comment entered. Ordering Provider: FELICE BRENNAN Report Released Date/Time: May 09, 2024 01:54 PM Reporting Lab: [place] [facility] [address] [place] [address] Performing Lab: [place] [facility] [address] [place] [address] CREATININE 0.80 mg/dL 0.6-1.1 UREA NITROGEN 17 [...] and tobacco- related health factors from the [place] facility where the Encounter took place. Current Smoking Status This section includes the most current smoking, or tobacco-related health factor, from the [place] facility where the Encounter took place. Date/Time Current Smoking Status Comment Facil ity January 21, 2024 10:00 AM VA-TOBACCO FORMER USER [facility] Tobacco Use History This section includes a history of the smoking, or tobacco-related health factors, that were collected on or before the date of the Encounter. The data comes from the [place] facility where the Encounter took place. Date/Time Smoking Status/Tobacco Use Comment F acility January 21, 2024 10:00 AM [place]-TO[place]ACCO QUIT 5 TO < 15 YRS [facility] January 27, 2023 12:31 PM VA-TOBACCO FORMER USER [facility] January 27, 2023 12:31 PM VA-TOBACCO QUIT 15 YRS OR MORE [facility] Advance Directives: All historical and current Section Date Range: From patient's date of to the date document was created. This section includes ALL of a patient's completed or amended [place] Advance and Rescinded Directives. The entries below indicate that a directive exists for the patient, but an actual copy is not included with this document. The data comes from all [place] facilities. Date Advance Directives Provider Source May 14, 2022 ADVANCE DIRECTIVE BERTHA NAZARIO [facility] Feb 05, 2017 ADVANCE DIRECTIVE DISCUSSION PEG SORENSEN [facility] Radiology Reports: +/- 30 days of the [...] the Encounter. The data comes from all [place] treatment facilities. Date/Time Radiology Report Provider Source May 30, 2024 03:32 PM MRI BRAIN W/O&W CO NT: GERDA ARAGON [id number] -1950 F Exm Date: MAY 30, 2024@15:32 Req Phys: JUAN CARLOS BRENNAN Loc: OUTSIDE PB-MRI (Req'g Loc) Img Loc: OUTSIDE PB-MRI Service: Unknown Screen: Patient is unable to answer or is unsure Screen Comment: OUTSIDE STUDY (Case [id number] COMPLETE) MRI BRAIN W/O&W CONT (MRI Detailed) CPT:28614 Reason for Study: Exam imported from outside Clinical History: Original Data for Imported Study Patient Name: GERDA ARAGON Date: 1950 Sex: F Study Date: 05/30/24 Study Time: 03:32:05 Study Description: MR head wo/w con [id number] Referring Physician: UNKNOWN, UNKNOWN Series 1: 27 [...] 3D Saved State - AutoSave Acquisition site: [facility] Report Status: Electronically Filed Date Reported: JUL 05, 2024 Report: Electronically generated report for outside study. Impression: Electronically generated report for outside study. 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 Degenerative changes sacroiliac joints. Degenerative changes also seen in the visualized lumbar spine. There is no evidence of a fracture or dislocation. No bony destruction. 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 Encounter Notes: All associated encounter notes This section contains the clinical notes associated to the Encounter. Date/Time Encounter Note(s) Provider Source May 18, 2024 08:11 AM CHIROPRACTIC NOTE: LOCAL TITLE: CHIROPRACTIC FOLLOW UP NOTE PB STANDARD TITLE: CHIROPRACTIC NOTE DATE OF NOTE: MAY 18, 2024@08:11 ENTRY DATE: MAY 18, 2024@08:11:36 AUTHOR: MORRIS RICH COSIGNER: URGENCY: STATUS: COMPLETED CHIROPRACTIC FOLLOW-UP VISIT Patient's language preference for health information: Bulgarian Other Communication Methods Needed: SUBJECTIVE: The is a 73 year old FEMALE being seen in the Chiropractic clinic for follow-up visit. The [place] states she is feeling better since her last adjustment. She reports between her physical therapy and her chiropractic adjustment, she is improving. Today, the rates her pain level as a 5/10. PAST MEDICAL HISTORY: see problem list SOCIO-ECONOMIC [...] associated myofascial pain. PLAN: This is the fourth follow up treatment for the of a [...] exercise program and to commit to a wire brush maker exercise plan. /sarabjit/ [facility] Signed: 05/18/2024 08:19 [facility]
--- OUTSIDE RECORDS SUMMARY | 2024-05-31 03:20 | XMS_ITS ---
Author Name [facility] [facility] [place] Address [address] [place] [address] Care Team Providers Care Manager Of Purchasing Name Role Phone JUAN CARLOS BRENNAN Primary [...] MEDICARE ADVANTAGE MCR (WNR) Aug 30, 2022 [id number] GERDA ARAGON PATIENT HUMANA MCR (WNR) MEDICARE ADVANTAGE MCR (WNR) Aug 30, 2022 [id number] GERDA ARAGON PATIENT MEDICARE (WNR) MEDICARE (M) PART A Jun 30, 2017 PART A [id number] GERDA ARAGON PATIENT MEDICARE (WNR) MEDICARE (M) PART B Jun 30, 2017 PART B [id number] GERDA ARAGON PATIENT MEDICARE (WNR) MEDICARE (M) PART A Jun 30, 2017 PART A [id number] GERDA ARAGON PATIENT MEDICARE (WNR) MEDICARE (M) PART B Jun 30, 2017 PART B [id number] GERDA ARAGON PATIENT WELLCARE MCR (WNR) MEDICARE ADVANTAGE [facility] (WNR) Sep 30, 2023 [id number] GERDA ARAGON PATIENT Selected Encounter This section includes the information on record at [place] for the Encounter. 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 Date/Time Primary/Secondary Diagnosis Diagnosis Name Provider Source May 31, 2024 08:37 AM PRIMARY Segmental and somatic dysfunction of cervical region [facility] May 31, 2024 08:37 AM SECONDARY Cervicalgia [facility] May 31, 2024 08:37 AM SECONDARY Pain in thoracic spine [facility] May 31, 2024 08:37 AM SECONDARY Segmental and somatic dysfunction of lumbar region [facility] May 31, 2024 08:37 AM SECONDARY Segmental and somatic dysfunction of pelvic region [facility] May 31, 2024 08:37 AM SECONDARY Segmental and somatic dysfunction of thoracic region [facility] [place] May 31, 2024 08:37 AM SECONDARY Spondyls w/o myelopathy or radiculopathy, lumbosacr region [facility] Plan of Treatment: Future Appointments [...] Date/Time Appointment Type Appointme nt Facility Name Jun 06, 2024 08:00 AM [facility] [facility] Jun 07, 2024 08:00 AM [facility] Jun 14, 2024 08:20 AM [facility] [facility] Jun 14, 2024 08:30 AM [facility] Jun 15, 2024 01:40 PM [facility] - [facility] [place] [facility] Jun 16, 2024 09:00 AM [facility] [facility] Jun 21, 2024 01:40 PM [facility] [place] [facility] Jul 05, 2024 09:40 AM [facility] [place] [facility] Jul 17, 2024 11:00 AM [facility] [place] [facility] 2024 09:30 AM [facility] - MED[facility]INE [facility] 2024 09:40 AM [facility] [place] [facility] Jul 31, 2024 11:00 AM [facility] [place] [facility] Aug 01, 2024 11:00 AM [facility]ORY - MEDICINE [facility] Aug 14, 2024 10:00 AM AMBUL[facility]ORY - MEDICINE [facility] Aug 16, 2024 09:40 AM AMBULATORY - MEDICINE [facility] Aug 28, 2024 11:00 AM [facility] [place] [facility] Aug 31, 2024 09:40 AM [facility]ORY - MEDICINE [facility] Sep 06, 2024 10:40 AM AMBULATORY - MEDICINE [facility] Sep 06, 2024 11:00 AM [facility] [place] [facility] Sep 13, 2024 09:40 AM [facility]BULATORY - MEDICINE [facility] Lab Results: +/- 30 days [...] Type Comment May 09, 2024 03:25 PM [facility] BASIC METABOLIC PANEL PLASMA Specimen Type: PLASMA No comment entered. Ordering Provider: BRENNAN,CATHERIN E R Report Released Date/Time: May 09, 2024 01:54 PM Reporting Lab: [place] [facility] [address] [place] [address] Performing Lab: EVERT SANTIAGO [facility] [address] [place] [address] CREATININE 0.80 mg/dL 0.6-1.1 UREA NITROGEN 17 [...] Height Weight Body Mass Index Source May 31, 2024 08:20 AM 98.1 76 123/84 [facility] Social History: Smoking Status (Most current) [...] Facil ity January 21, 2024 10:00 AM [place]-TOBACCO FORMER USER [facility] Tobacco Use History This section includes a history of the smoking, or tobacco-related health factors, that were collected on or before the date of the Encounter. The data comes from the [place] facility where the Encounter took place. Date/Time Smoking Status/Tobacco Use Comment F acility January 21, 2024 10:00 AM ND-TOBACCO QUIT 5 TO < 15 YRS [facility] January 27, 2023 12:31 PM [place]-TOBACCO FORMER USER [facility] January 27, 2023 12:31 PM [place]-TOBACCO QUIT 15 YRS OR MORE [facility] Advance Directives: All historical and current [...] MRI BRAIN W/O&W CO NT: GERDA ARAGON [id number] -1950 F Exm Date: MAY 30, 2024@15:32 Req Phys: JUAN CARLOS BRENNAN Loc: OUTSIDE PB-MRI (Req'g Loc) Img Loc: OUTSIDE PB-MRI Service: Unknown Screen: Patient is unable to answer or is unsure Screen Comment: OUTSIDE STUDY (Case [id number] COMPLETE) MRI BRAIN W/O&W CONT (MRI Detailed) CPT:85004 Reason for Study: Exam imported from outside Clinical History: Original Data for Imported Study Patient Name: GERDA ARAGON Date: 1950 Sex: F Study Date: 05/30/24 Study Time: 03:32:05 Study Description: MR head wo/w con 58116 Referring Physician: UNKNOWN, UNKNOWN Series 1: 27 [...] 3D Saved State - AutoSave Acquisition site: [facility] Report Status: Electronically Filed Date Reported: JUL 05, 2024 Report: Electronically generated report for outside study. Impression: Electronically generated report for outside study. 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 Degenerative changes sacroiliac joints. Degenerative changes also seen in the visualized lumbar spine. There is no evidence of a fracture or dislocation. No bony destruction. 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 Date/Time Encounter Note(s) Provider Source May 31, 2024 08:27 AM CHIROPRACTIC NOTE: LOCAL TITLE: CHIROPRACTIC FOLLOW UP NOTE PB STANDARD TITLE: CHIROPRACTIC NOTE DATE OF NOTE: MAY 31, 2024@08:27 ENTRY DATE: MAY 31, 2024@08:27:50 AUTHOR: MORRIS RIHC COSIGNER: URGENCY: STATUS: COMPLETED CHIROPRACTIC FOLLOW-UP VISIT Patient's language preference for health information: Monegasque Other Communication Methods Needed: SUBJECTIVE: The is a 73 year old FEMALE being seen in the Chiropractic clinic for follow-up visit. The [place] reports feeling fairly good since her last adjustment until under going a MRI yesterday. She states laying on the scan table aggravated her neck and back. She describes her neck and back as tight and pinch-like since the scan yesterday. Today, the rates her pain level as [...] restricted in all planes of motion. The [place] experience pain with the restricted AROM. LUMBAR/THORACIC SPINE: MOVEMENT/POSTURE: The [place] ambulates without issue. SEGMENTAL DYSFUNCTION: Joint dysfunction [...] and back pain, we will treat The [place] 1x per week for 6 weeks. Prognosis: [...] exercise program and to commit to a ocean transportation intermediary exercise plan. /sarabjit/ [facility] Signed: 05/31/2024 08:35 MORRIS RICH
--- OUTSIDE RECORDS SUMMARY | 2024-05-31 10:00 | XMS_ITS | Encounter Summary ---
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 Role Phone JUAN CARLOS BRENNAN Primary [...] Erwin HUMANA MCR (WNR) MEDICARE ADVANTAGE MCR (R) Aug 30, 2022 [id number] GERDA ARAGON PATIENT HUMANA MCR (WNR) MEDICARE ADVANTAGE MCR (WNR) Aug 30, 2022 [id number] GERDA ARAGON PATIENT MEDICARE (WNR) MEDICARE (M) PART B Jun 30, 2017 PART B [id number] GERDA ARAGON PATIENT MEDICARE (WNR) MEDICARE (M) PART A Jun 30, 2017 PART A [id number] GERDA ARAGON PATIENT MEDICARE (WNR) MEDICARE (M) PART B Jun 30, 2017 PART B [id number] GERDA ARAGON PATIENT MEDICARE (WNR) MEDICARE (M) PART A Jun 30, 2017 PART A [id number] GERDA ARAGON PATIENT [facility]LLCARE [facility] (WNR) MEDICARE ADVANTAGE [facility] (WNR) Sep 30, 2023 [id number] GERDA ARAGON PATIENT Selected Encounter This section includes the information on record at ID for the Encounter. Date/Time Encounter Type Encounter Description Reason Provider Source May 31, 2024 03:00 PM HOT OR COLD PACKS THERAPY PHYSICAL THERAPY ICD-10-CM M13.812 Other specified arthritis, left shoulder JONATHAN LAWTON [facility] Encounter Template Text not used by ID Assessments - Encounter Diagnoses This section includes the primary and secondary diagnoses documented for the Encounter. Date/Time Primary/Secondary Diagnosis Diagnosis Name Provider Source May 31, 2024 03:57 PM PRIMARY Other specified arthritis, left shoulder DOUG LAWTON [facility] May 31, 2024 03:57 PM SECONDARY Pain in right knee DOUG LAWTON [facility] Plan of Treatment: Future Appointments (+ 6 months) and Future Tests (+/- 45 days) The Plan of Treatment section includes future care activities for the patient from all ID treatmentfacilities. This section includes future appointments and future orders which are active, pending or scheduled. Future Appointments This section includes appointments that were scheduled to occur 6 months from the date of the Encounter, up to a maximum of 20 appointments. The data comes from all ID treatment facilities. Appointment Date/Time Appointment Type Appointme nt Facility Name Jun 06, 2024 08:00 AM AMBULATORY - MEDICINE [facility] Jun 07, 2024 08:00 AM AMBULATORY - MEDICINE [facility] Jun 14, 2024 08:20 AM AMBULATORY - MEDICINE [facility] Jun 14, 2024 08:30 AM AMBULATORY - MEDICINE [facility] Jun 15, 2024 01:40 PM AMBULATORY - MED[facility]INE [facility] Jun 16, 2024 09:00 AM AMBULATORY - MEDICINE [facility] Jun 21, 2024 01:40 PM AMBULATORY - MEDICINE [facility] Jul 05, 2024 09:40 AM [facility] [place] [facility] [place] [facility] Jul 17, 2024 11:00 AM [facility] [place] [facility] 2024 09:30 AM [facility] [place] [facility] 2024 09:40 AM [facility] [place] [facility] Jul 31, 2024 11:00 AM AMBULATORY - MEDICINE [facility] Aug 01, 2024 11:00 AM AMBULATORY - MEDICINE [facility] Aug 14, 2024 10:00 AM [facility] [place] [facility] Aug 16, 2024 09:40 AM AMBULATORY - MEDICINE [facility] Aug 28, 2024 11:00 AM AMBULATORY - MEDICINE [facility] Aug 31, 2024 09:40 AM AMBULATORY - MEDICINE [facility] Sep 06, 2024 10:40 AM AMBULATORY - MEDICINE [facility] Sep 06, 2024 11:00 AM AMBULATORY - MEDICINE [facility] Sep 13, 2024 09:40 AM AMBULATORY - MEDICINE [facility] Lab Results: +/- 30 days of the encounter This section includes the Chemistry and Hematology Lab Results on record with ID for the patient. Radiology Reports and Pathology Reports are provided separately, in subsequent sections. Lab Results This section contains the Chemistry/Hematology Results that were resulted 30 days before or 30 daysafter the date of the Encounter. Date/Time Source Result Type Result - Unit Interpretation Reference Range Specimen Type Comment May 09, 2024 03:25 PM [facility] BASIC METABOLIC PANEL PLASMA Specimen Type: PLASMA No comment entered. Ordering Provider: FELICE BRENNAN Report Released Date/Time: May 09, 2024 01:54 PM Reporting Lab: [place] [facility] [address] [place] [address] Performing Lab: [place] [facility] [address] [place] [address] CREATININE 0.80 mg/dL 0.6-1.1 UREA NITROGEN 17 [...] 31, 2024 08:20 AM 98.1 76 123/84 [facility] Social History: Smoking Status (Most current) and Tobacco Use (All prior to encounter date) This section includes the most current, and the historical, smoking and tobacco- related health factors from the ID facility where the Encounter took place. Current Smoking Status This section includes the most current smoking, or tobacco-related health factor, from the ID facility where the Encounter took place. Date/Time Current Smoking Status Comment Facil ity January 21, 2024 10:00 AM [place]-TOBACCO FORMER USER [facility] Tobacco Use History This section includes a history of the smoking, or tobacco-related health factors, that were collected on or before the date of the Encounter. The data comes from the ID facility where the Encounter took place. Date/Time Smoking Status/Tobacco Use Comment F acility January 21, 2024 10:00 AM ID-TOBACCO QUIT 5 TO < 15 YRS [facility] January 27, 2023 12:31 PM VA-TOBACCO FORMER USER [facility] January 27, 2023 12:31 PM VA-TOBACCO QUIT 15 YRS OR MORE [facility] Advance Directives: All historical and current Section Date Range: From patient's date of to the date document was created. This section includes ALL of a patient's completed or amended [place] Advance and Rescinded Directives. The entries below indicate that a directive exists for the patient, but an actual copy is not included with this document. The data comes from all ID facilities. Date Advance Directives Provider Source May [...] the Encounter. The data comes from all ID treatment facilities. Date/Time Radiology Report Provider Source May 30, 2024 03:32 PM MRI BRAIN W/O&W CO NT: GERDA ARAGON [id number] -1950 F Exm Date: MAY 30, 2024@15:32 Req Phys: JUAN CARLOS BRENNAN Loc: OUTSIDE PB-MRI (Req'g Loc) Img Loc: OUTSIDE PB-MRI Service: Unknown Screen: Patient is unable to answer or is unsure Screen Comment: OUTSIDE STUDY (Case [id number] COMPLETE) MRI BRAIN W/O&W CONT (MRI Detailed) CPT:25537 Reason for Study: Exam imported from outside Clinical History: Original Data for Imported Study Patient Name: GERDA ARAGON Date: 1950 Sex: F Study Date: 05/30/24 Study Time: 03:32:05 Study Description: MR head wo/w con 16230 Referring Physician: UNKNOWN, UNKNOWN Series 1: 27 [...] 3D Saved State - AutoSave Acquisition site: [facility] Report Status: Electronically Filed Date Reported: JUL 05, 2024 Report: Electronically generated report for outside study. Impression: Electronically generated report for outside study. 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 Degenerative changes sacroiliac joints. Degenerative changes also seen in the visualized lumbar spine. There is no evidence of a fracture or dislocation. No bony destruction. 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 Date/Time Encounter Note(s) Provider Source May 31, 2024 02:55 PM PHYSICAL THERAPY N OTE: LOCAL TITLE: PHYSICAL THERAPY NOTE PB STANDARD TITLE: PHYSICAL THERAPY NOTE DATE OF NOTE: MAY 31, 2024@14:55 ENTRY DATE: MAY 31, 2024@14:55:11 AUTHOR: DOUG LAWTON COSIGNER: URGENCY: STATUS: COMPLETED Diagnosis: Other specified Arthritis, left Shoulder; right knee pain Subjective reports that she had an MRI yesterday resulting in an increase in her left shoulder pain. She states pain in left infraspinatus muscle belly rated 7/10. Objective Therapeutic exercise: calf stretch 3x1 minute incline SLR 3x10 side lying hip abduction 3x10 side lying hip adduction 3x10 shoulder sara into flexion, scaption, abduction 3 minutes each wall slide flexion and abduction 20x each Shoulder Row with scapular retraction 20x green theraband Shoulder extension with scapular retraction 20x green theraband Shoulder internal rotation 2x15 green theraband Shoulder external rotation 2x15 green theraband shoulder flexion to 90 degrees 2x10 1 lbs. Sholder press 2x10 1 lbs. Manual therapy: -Soft tissue mobilization to left infraspinatus, teres minor, and teres major Cryotherapy: -Thermx to left shoulder for 10 minutes, 34 degrees, 20 mmHg intermittent compression Assessment [place] was able to progress with exercises today to address her left shoulder pain and right knee pain. She demonstrated several trigger points in left infraspinatus that responded well to soft tissue mobilization. She concluded today's session with the thermx to her left shoulder for symptom management. Plan Will continue to progress through her [...] decrease pain and improve ADLs. 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 Total Treatment Time: 55 minutes Therapeutic exercise: 45 minutes Hot/cold pack: 10 minutes Visit /sarabjit/ Doug Lawton PT, DPT [facility] Signed: 05/31/2024 15:57 [facility]OU[facility]WTON [facility]
--- OUTSIDE RECORDS SUMMARY | 2024-06-06 03:00 | XMS_ITS | Encounter Summary ---
Author Name [facility] [place] [facility] [place] Address [address] [place] [address] Care Team Providers Care Briquette Operator Name Role Phone JUAN CARLOS BRENNAN [...] MEDICARE ADVANTAGE MCR (WNR) Aug 30, 2022 [id number] GERDA ARAGON PATIENT HUMANA MCR (WNR) MEDICARE ADVANTAGE MCR (WNR) Aug 30, 2022 [id number] GERDA ARAGON PATIENT MEDICARE (WNR) MEDICARE (M) PART A Jun 30, 2017 PART A [id number] GERDA ARAGON PATIENT MEDICARE (WNR) MEDICARE (M) PART B Jun 30, 2017 PART B [id number] GERDA ARAGON PATIENT MEDICARE (WNR) MEDICARE (M) PART A Jun 30, 2017 PART A [id number] GERDA ARAGON PATIENT MEDICARE (WNR) MEDICARE (M) PART B Jun 30, 2017 PART B [id number] GERDA ARAGON PATIENT WELLCARE MCR (WNR) MEDICARE ADVANTAGE [facility] (WNR) Sep 30, 2023 [id number] GERDA ARAGON PATIENT Selected Encounter This section includes the information on record at [place] for the Encounter. Date/Time Encounter Type Encounter Description Reason Provider Source Jun 06, 2024 08:00 AM CHIROPRACT MAN 3-4 REGIONS COUPLES THERAPIST ICD-10-CM M99.01 Segmental and somatic dysfunction of cervical region MORRIS RICH Encounter Template Text not used by [facility] Assessments - Encounter Diagnoses This section includes the primary and secondary diagnoses documented for the Encounter. Date/Time Primary/Secondary Diagnosis Diagnosis Name Provider Source Jun 06, 2024 08:23 AM PRIMARY Segmental and somatic dysfunction of cervical region [facility] Jun 06, 2024 08:23 AM SECONDARY Cervicalgia [facility] Jun 06, 2024 08:23 AM SECONDARY Pain in thoracic spine [facility] Jun 06, 2024 08:23 AM SECONDARY Radiculopathy, lumbosacral region [facility] Jun 06, 2024 08:23 AM SECONDARY Segmental and somatic dysfunction of lumbar region [facility] Jun 06, 2024 08:23 AM SECONDARY Segmental and somatic dysfunction of pelvic region [facility] Jun 06, 2024 08:23 AM SECONDARY Segmental and somatic dysfunction of thoracic region [facility] Plan of Treatment: Future Appointments (+ 6 months) and Future Tests (+/- 45 days) The Plan of Treatment section includes future care activities for the patient from all [place] treatmentfacilities. This section includes future appointments and future orders which are active, pending or scheduled. Future Appointments This section includes appointments that were scheduled to occur 6 months from the date of the Encounter, up to a maximum of 20 appointments. The data comes from all [place] treatment facilities. Appointment Date/Time Appointment Type Appointme nt Facility Name Jun 07, 2024 08:00 AM [facility] [place] [facility] [facility] Jun 14, 2024 08:20 AM [facility] [place] [facility] [place] Jun 14, 2024 08:30 AM [facility] [place] [facility] [place] Jun 15, 2024 01:40 PM [facility] [place] [facility] Jun 16, 2024 09:00 AM [facility] [place] Jun 21, 2024 01:40 PM [facility] [place] Jul 05, 2024 09:40 AM [facility] [place] Jul 17, 2024 11:00 AM [facility] [place] 2024 09:30 AM [facility] 2024 09:40 AM [facility] [place] Jul 31, 2024 11:00 AM [facility] [place] Aug 01, 2024 11:00 AM [facility] [place] Aug 14, 2024 10:00 AM [facility] [place] Aug 16, 2024 09:40 AM [facility] [place] Aug 28, 2024 11:00 AM [facility] [place] Aug 31, 2024 09:40 AM [facility] [place] [facility] Sep 06, 2024 10:40 AM [facility] [place] Sep 06, 2024 11:00 AM [facility] [place] [facility] Sep 13, 2024 09:40 AM [facility] [place] [facility] [place] [facility] Oct 02, 2024 11:00 AM [facility] [place] [facility] Lab Results: +/- 30 days of the encounter This section includes the Chemistry and Hematology Lab Results on record with [place] for the patient. Radiology Reports and Pathology Reports are provided separately, in subsequent sections. Lab Results This section contains the Chemistry/Hematology Results that were resulted 30 days before or 30 daysafter the date of the Encounter. Date/Time Source Result Type Result - Unit Interpretation Reference Range Specimen Type Comment May 09, 2024 03:25 PM [facility] BASIC METABOLIC PANEL PLASMA Specimen Type: PLASMA No comment entered. Ordering Provider: FELICE BRENNAN Report Released Date/Time: May 09, 2024 01:54 PM Reporting Lab: [place] [facility] [address] [place] [address] Performing Lab: [place] [facility] [address] [place] [address] CREATININE 0.80 mg/dL 0.6-1.1 UREA NITROGEN 17 [...] Pain Height Weight Body Mass Index Source Jun 06, 2024 08:00 AM 98.3 85 152/92 [facility] Social History: Smoking Status (Most current) and Tobacco Use (All prior to encounter date) This section includes the most current, and the historical, smoking and tobacco- related health factors from the [place] facility where the Encounter took place. Current Smoking Status This section includes the most current smoking, or tobacco-related health factor, from the [place] facility where the Encounter took place. Date/Time Current Smoking Status Comment Facil ity January 21, 2024 10:00 AM [place]-TOBACCO FORMER USER [facility] Tobacco Use History This section includes a history of the smoking, or tobacco-related health factors, that were collected on or before the date of the Encounter. The data comes from the [place] facility where the Encounter took place. Date/Time Smoking Status/Tobacco Use Comment F acility January 21, 2024 10:00 AM [place]-TOBACCO QUIT 5 TO < 15 YRS [facility] January 27, 2023 12:31 PM [place]-TOBACCO FORMER USER [facility] January 27, 2023 12:31 PM [place]-TOBACCO QUIT 15 YRS OR MORE [facility] Advance Directives: All historical and current Section Date Range: From patient's date of to the date document was created. This section includes ALL of a patient's completed or amended [place] Advance and Rescinded Directives. The entries below indicate that a directive exists for the patient, but an actual copy is not included with this document. The data comes from all [place] facilities. Date Advance Directives Provider Source May 14, 2022 ADVANCE DIRECTIVE BERTHA NAZARIO [facility] Feb 05, 2017 ADVANCE DIRECTIVE DISCUSSION PEG SORENSEN [facility] Radiology Reports: +/- 30 days of the [...] the Encounter. The data comes from all [place] treatment facilities. Date/Time Radiology Report Provider Source May 30, 2024 03:32 PM MRI BRAIN W/O&W CO NT: GERDA ARAGON [id number] -1950 F Exm Date: MAY 30, 2024@15:32 Req Phys: JUAN CARLOS BRENNAN Loc: OUTSIDE PB-MRI (Req'g Loc) Img Loc: OUTSIDE PB-MRI Service: Unknown Screen: Patient is unable to answer or is unsure Screen Comment: OUTSIDE STUDY (Case [id number] COMPLETE) MRI BRAIN W/O&W CONT (MRI Detailed) CPT:90131 Reason for Study: Exam imported from outside Clinical History: Original Data for Imported Study Patient Name: GERDA ARAGON Date: 1950 Sex: F Study Date: 05/30/24 Study Time: 03:32:05 Study Description: MR head wo/w con [id number] Referring Physician: UNKNOWN, UNKNOWN Series 1: 27 [...] 3D Saved State - AutoSave Acquisition site: [facility] Report Status: Electronically Filed Date Reported: JUL 05, 2024 Report: Electronically generated report for outside study. Impression: Electronically generated report for outside study. 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 Degenerative changes sacroiliac joints. Degenerative changes also seen in the visualized lumbar spine. There is no evidence of a fracture or dislocation. No bony destruction. 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 Date/Time Encounter Note(s) Provider Source Jun 06, 2024 08:11 AM CHIROPRACTIC NOTE: LOCAL TITLE: CHIROPRACTIC FOLLOW UP NOTE PB STANDARD TITLE: CHIROPRACTIC NOTE DATE OF NOTE: JUN 06, 2024@08:11 ENTRY DATE: JUN 06, 2024@08:11:59 AUTHOR: MORRIS RICH COSIGNER: URGENCY: STATUS: COMPLETED CHIROPRACTIC FOLLOW-UP VISIT Patient's language preference for health information: Senegalese Other Communication Methods Needed: SUBJECTIVE: The is a 73 year old FEMALE being seen in the Chiropractic clinic for follow-up visit. The describes her neck as horrible for the last few days, possibly due to sleeping wrong and her hips feel shifted. Today, the rates her pain level as a 3/10. PAST MEDICAL HISTORY: see problem list SOCIO-ECONOMIC [...] the restricted AROM. LUMBAR/THORACIC SPINE: MOVEMENT/POSTURE: The [place] ambulates without issue. SEGMENTAL DYSFUNCTION: Joint dysfunction [...] and back pain, we will treat The once every two weeks for six treatments. Prognosis: Fair Today's treatment of the consisted [...] exercise program and to commit to a assistant passenger locomotive engineer exercise plan. /sarabjit/ [facility] Signed: 06/06/2024 08:22 MORRIS RICH
--- OUTSIDE RECORDS SUMMARY | 2024-06-07 03:00 | XMS_ITS | Encounter Summary ---
Author Name [facility] [place] Address [address] [place] [address] Care Team Providers Care Mine Captain Name Role Phone JUAN CARLOS BRENNAN Primary [...] MEDICARE ADVANTAGE MCR (WNR) Aug 30, 2022 [id number] [phone] GERDA ARAGON PATIENT HUMANA MCR (WNR) MEDICARE ADVANTAGE MCR (WNR) Aug 30, 2022 [id number] [phone] GERDA ARAGON PATIENT MEDICARE (WNR) MEDICARE (M) PART A Jun 30, 2017 PART A [id number] GERDA ARAGON PATIENT MEDICARE (WNR) MEDICARE (M) PART B Jun 30, 2017 PART B [id number] GERDA ARAGON PATIENT MEDICARE (WNR) MEDICARE (M) PART A Jun 30, 2017 PART A [id number] GERDA ARAGON PATIENT MEDICARE (WNR) MEDICARE (M) PART B Jun 30, 2017 PART B [id number] GERDA ARAGON PATIENT WELLCARE [facility] (WNR) MEDICARE ADVANTAGE [facility] (WNR) Sep 30, 2023 [id number] [phone] GERDA ARAGON PATIENT Selected Encounter This section includes the information on record at [place] for the Encounter. Date/Time Encounter Type Encounter Description Reason Provider Source Jun 07, 2024 08:00 AM HOT OR COLD PACKS THERAPY PHYSICAL THERAPY ICD-10-CM M13.812 Other specified arthritis, left shoulder JONATHAN LAWTON [facility] Encounter Template Text not used by [place] Assessments - Encounter Diagnoses This section includes the primary and secondary diagnoses documented for the Encounter. Date/Time Primary/Secondary Diagnosis Diagnosis Name Provider Source Jun 07, 2024 08:54 AM PRIMARY Other specified arthritis, left shoulder [facility]OUG LAWTON [facility] Jun 07, 2024 08:54 AM SECONDARY Pain in right knee DOUG LAWTON [facility] Plan of Treatment: Future Appointments (+ 6 months) and Future Tests (+/- 45 days) The Plan of Treatment section includes future care activities for the patient from all [place] treatmentfacilities. This section includes future appointments and future orders which are active, pending or scheduled. Future Appointments This section includes appointments that were scheduled to occur 6 months from the date of the Encounter, up to a maximum of 20 appointments. The data comes from all [place] treatment facilities. Appointment Date/Time Appointment Type Appointme nt Facility Name Jun 14, 2024 08:20 AM [facility] Jun 14, 2024 08:30 AM AM[facility]ULATORY - MEDICINE [facility] Jun 15, 2024 01:40 PM [facility] [facility] Jun 16, 2024 09:00 AM AMBULATORY - MEDICINE [facility] Jun 21, 2024 01:40 PM AMBULATORY - MEDICINE [facility] Jul 05, 2024 09:40 AM AMBULATORY - MEDICINE [facility] Jul 17, 2024 11:00 AM AMBULATORY - MEDICINE [facility] 2024 09:30 AM [facility] [place] [facility] 2024 09:40 AM [facility] [place] [facility] Jul 31, 2024 11:00 AM [facility]ATORY - MEDICINE [facility] Aug 01, 2024 11:00 AM AMBULATORY - MEDICINE [facility] Aug 14, 2024 10:00 AM AMBULATORY - MEDICINE [facility] Aug 16, 2024 09:40 AM AMBULATORY - MEDICINE [facility] Aug 28, 2024 11:00 AM AMBULATORY - MEDICINE [facility] Aug 31, 2024 09:40 AM AMBULATORY - MEDICINE [facility] Sep 06, 2024 10:40 AM AMBULATORY - MEDICINE [facility] Sep 06, 2024 11:00 AM AMBULATORY - MEDICINE [facility] Sep 13, 2024 09:40 AM AMBULATORY - MEDICINE [facility] Oct 02, 2024 11:00 AM [facility] Oct 04, 2024 09:40 AM AMBULATORY - MEDICINE [facility] Lab Results: +/- 30 days of the encounter This section includes the Chemistry and Hematology Lab Results on record with [place] for the patient. Radiology Reports and Pathology Reports are provided separately, in subsequent sections. Lab Results This section contains the Chemistry/Hematology Results that were resulted 30 days before or 30 daysafter the date of the Encounter. Date/Time Source Result Type Result - Unit Interpretation Reference Range Specimen Type Comment May 09, 2024 03:25 PM [facility] BASIC METABOLIC PANEL PLASMA Specimen Type: PLASMA No comment entered. Ordering Provider: FELICE BRENNAN Report Released Date/Time: May 09, 2024 01:54 PM Reporting Lab: [place] [facility] [address] [place] [address] Performing Lab: [place] [facility] [address] [place] [address] CREATININE 0.80 mg/dL 0.6-1.1 UREA NITROGEN 17 [...] and tobacco- related health factors from the [place] facility where the Encounter took place. Current Smoking Status This section includes the most current smoking, or tobacco-related health factor, from the [place] facility where the Encounter took place. Date/Time Current Smoking Status Comment Facil ity January 21, 2024 10:00 AM VA-TOBACCO FORMER USER [facility] Tobacco Use History This section includes a history of the smoking, or tobacco-related health factors, that were collected on or before the date of the Encounter. The data comes from the [place] facility where the Encounter took place. Date/Time Smoking Status/Tobacco Use Comment F acility January 21, 2024 10:00 AM VA-TOBACCO QUIT 5 TO < 15 YRS [facility] January 27, 2023 12:31 PM VA-TOBACCO FORMER USER [facility] January 27, 2023 12:31 PM VA-TOBACCO QUIT 15 YRS OR MORE [facility] Advance Directives: All historical and current Section Date Range: From patient's date of to the date document was created. This section includes ALL of a patient's completed or amended [place] Advance and Rescinded Directives. The entries below indicate that a directive exists for the patient, but an actual copy is not included with this document. The [facility]. Date Advance Directives Provider Source May 14, [...] the Encounter. The data comes from all [place] treatment facilities. Date/Time Radiology Report Provider Source May 30, 2024 03:32 PM MRI BRAIN W/O&W CO NT: GERDA ARAGON [id number] -1950 F Exm Date: MAY 30, 2024@15:32 Req Phys: JUAN CARLOS BRENNAN Loc: OUTSIDE PB-MRI (Req'g Loc) Img Loc: OUTSIDE PB-MRI Service: Unknown Screen: Patient is unable to answer or is unsure Screen Comment: OUTSIDE STUDY (Case [id number] COMPLETE) MRI BRAIN W/O&W CONT (MRI Detailed) CPT:47479 Reason for Study: Exam imported from outside Clinical History: Original Data for Imported Study Patient Name: GERDA ARAGON Date: 1950 Sex: F Study Date: 05/30/24 Study Time: 03:32:05 Study Description: MR head wo/w con [id number] Referring Physician: UNKNOWN, UNKNOWN Series 1: 27 [...] 3D Saved State - AutoSave Acquisition site: [facility] Report Status: Electronically Filed Date Reported: JUL 05, 2024 Report: Electronically generated report for outside study. Impression: Electronically generated report for outside study. 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 Degenerative changes sacroiliac joints. Degenerative changes also seen in the visualized lumbar spine. There is no evidence of a fracture or dislocation. No bony destruction. 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 Date/Time Encounter Note(s) Provider Source Jun 07, 2024 08:03 AM PHYSICAL THERAPY N OTE: LOCAL TITLE: PHYSICAL THERAPY NOTE PB STANDARD TITLE: PHYSICAL THERAPY NOTE DATE OF NOTE: JUN 07, 2024@08:03 ENTRY DATE: JUN 07, 2024@08:03:38 AUTHOR: DOUG LAWTON COSIGNER: URGENCY: STATUS: COMPLETED Diagnosis: Other specified Arthritis, left Shoulder; right knee pain Subjective reports that she continues to have pain on the posterior aspect of her left shoulder rated 7/10. She states that she has been having to use pain patches to control her symptoms. reports that her right knee has been feeling better. Objective Therapeutic exercise: calf stretch 3x1 minute incline SLR 2x10 2 lbs. side lying hip abduction 2x10 2 lbs. side lying hip adduction 2x10 2 lbs. shoulder sara into flexion, scaption, abduction 2 minutes each rhomboid stretch 30 seconds wall slide flexion and abduction 20x each Shoulder Row with scapular retraction 2x15 green theraband Shoulder extension with scapular retraction 2x15 green theraband Shoulder T with scapular retraction 2x15 green theraband Shoulder internal rotation 2x15 green theraband Shoulder external rotation 2x15 green theraband shoulder flexion to 90 degrees 2x10 1 lbs. Sholder press 2x10 1 lbs. Cryotherapy: -Thermx to left shoulder for 10 minutes, 34 degrees, 20 mmHg intermittent compression Assessment Stephanie was able to progress with therapeutic exercises today tolerating increased difficulty and new exercises to address posterior shoulder musculature. She continues to demonstrate a trigger point and increased tenderness in left infraspinatus muscle belly. She continues to have difficulty with scapular stabilization with overhead activity. She is progressing with strength, ROM, and function in her right knee. Concluded today's session with moist heat to her left shoulder for symptom management. Plan Will continue to progress stephanie through her current physical therapy plan of care to address her shoulder pain. Short term goals to be achieved in 4 weeks: 1) Patient will be (I) with home exercise. -Progress: met 2) Patient will decrease pain complaints by 25% or more in order to improve ADL performance. -Progress: partially met 3) Patient will increase UE strength by 1/2 grade or more overall in order to decrease pain and improve ADLs. -Progress: met nursing home goals to be achieved in 8 weeks: 1) Patient will have WNL bilateral [...] 40 minutes Hot/cold pack: 10 minutes Visit /sarabjit/ Doug Lawton PT, DPT [facility] Signed: 06/07/2024 08:54 [facility] [place] [facility]
--- OUTSIDE RECORDS SUMMARY | 2024-06-14 03:20 | XMS_ITS | Encounter Summary ---
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 Name Role Phone JUAN CARLOS BRENNAN [...] MEDICARE ADVANTAGE MCR (WNR) Aug 30, 2022 [id number] GERDA ARAGON PATIENT HUMANA MCR (WNR) MEDICARE ADVANTAGE MCR (WNR) Aug 30, 2022 [id number] [phone] GERDA ARAGON PATIENT MEDICARE (WNR) MEDICARE (M) PART A Jun 30, 2017 PART A [id number] [phone] GERDA ARAGON PATIENT MEDICARE (WNR) MEDICARE (M) PART B Jun 30, 2017 PART B [id number] [phone] GERDA ARAGON PATIENT MEDICARE (WNR) MEDICARE (M) PART A Jun 30, 2017 PART A [id number] GERDA ARAGON PATIENT MEDICARE (WNR) MEDICARE (M) PART B Jun 30, 2017 PART B [id number] GERDA ARAGON PATIENT WELLCARE MCR (WNR) MEDICARE ADVANTAGE [facility] (WNR) Sep 30, 2023 [id number] GERDA ARAGON PATIENT Selected Encounter This section includes the information on record at [place] for the Encounter. 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 Date/Time Primary/Secondary Diagnosis Diagnosis Name Provider Source Jun 14, 2024 08:39 AM PRIMARY Segmental and somatic dysfunction of cervical region M[facility]RIS RICH [facility] Jun 14, 2024 08:39 AM SECONDARY Cervicalgia [facility] R[facility] Jun 14, 2024 08:39 AM SECONDARY Pain in thoracic spine [facility]IS RICH [facility] Jun 14, 2024 08:39 AM SECONDARY Radiculopathy, lumbosacral region [facility] RICH [facility] Jun 14, 2024 08:39 AM SECONDARY Segmental and somatic dysfunction of lumbar region [facility]IS RICH [facility] Jun 14, 2024 08:39 AM SECONDARY Segmental and somatic dysfunction of pelvic region MORRIS RICH [facility] Jun 14, 2024 08:39 AM SECONDARY Segmental and somatic dysfunction of thoracic region [facility] RICH [facility] Plan of Treatment: Future Appointments (+ 6 months) and Future Tests (+/- 45 days) The Plan of Treatment section includes future care activities for the patient from all [place] treatmentfacilities. This section includes future appointments and future orders which are active, pending or scheduled. Future Appointments This section includes appointments that were scheduled to occur 6 months from the date of the Encounter, up to a maximum of 20 appointments. The data comes from all [place] treatment facilities. Appointment Date/Time Appointment Type Appointme nt Facility Name Jun 15, 2024 01:40 PM [facility]UL[facility] [place] [facility] Jun 16, 2024 09:00 AM [facility] [place] [facility] Jun 21, 2024 01:40 PM [facility] Jul 05, 2024 09:40 AM [facility] Jul 17, 2024 11:00 AM [facility] 2024 09:30 AM [facility] 2024 09:40 AM [facility] Jul 31, 2024 11:00 AM [facility] Aug 01, 2024 11:00 AM [facility] Aug 14, 2024 10:00 AM [facility] Aug 16, 2024 09:40 AM [facility] Aug 28, 2024 11:00 AM [facility] Aug 31, 2024 09:40 AM [facility] Sep 06, 2024 10:40 AM [facility] Sep 06, 2024 11:00 AM [facility] Sep 13, 2024 09:40 AM [facility] Oct 02, 2024 11:00 AM [facility] [place] [facility] Oct 04, 2024 09:40 AM [facility] Oct 31, 2024 02:00 PM [facility] Nov 01, 2024 08:30 AM [facility] Vital Signs: All taken on the encounter date This section contains inpatient and outpatient Vital Signs collected on the date of the Encounter. Date/Time Temperature Pulse Blood Pressure Respiratory Rate SP02 Pain Height Weight Body Mass Index Source Jun 14, 2024 08:20 AM 98.1 79 142/97 [facility] Social History: Smoking Status (Most current) and Tobacco Use (All prior to encounter date) This section includes the most current, and the historical, smoking and tobacco- related health factors from the [place] facility where the Encounter took place. Current Smoking Status This section includes the most current smoking, or tobacco-related health factor, from the [place] facility where the Encounter took place. Date/Time Current Smoking Status Comment Facil ity January 21, 2024 10:00 AM VA-TOBACCO FORMER USER [facility] Tobacco Use History This section includes a history of the smoking, or tobacco-related health factors, that were collected on or before the date of the Encounter. The data comes from the [place] facility where the Encounter took place. Date/Time Smoking Status/Tobacco Use Comment F acility January 21, 2024 10:00 AM VA-TOBACCO QUIT 5 TO < 15 YRS [facility] January 27, 2023 12:31 PM [facility] January 27, 2023 12:31 PM VA-TOBACCO QUIT 15 YRS OR MORE [facility] Advance Directives: All historical and current Section Date Range: From patient's date of to the date document was created. This section includes ALL of a patient's completed or amended [place] Advance and Rescinded Directives. The entries below indicate that a directive exists for the patient, but an actual copy is not included with this document. The data comes from all [facility]. Date Advance Directives Provider Source May 14, 2022 ADVANCE DIRECTIVE BERTHA NAZARIO [facility] Feb 05, 2017 ADVANCE DIRECTIVE DISCUSSION PEG SORENSEN [facility] Radiology Reports: +/- 30 days of [...] the Encounter. The data comes from all [place] treatment facilities. Date/Time Radiology Report Provider Source May 30, 2024 03:32 PM MRI BRAIN W/O&W CO NT: GERDA ARAGON [id number] -1950 F Exm Date: MAY 30, 2024@15:32 Req Phys: JUAN CARLOS BRENNAN Loc: OUTSIDE PB-MRI (Req'g Loc) Img Loc: OUTSIDE PB-MRI Service: Unknown Screen: Patient is unable to answer or is unsure Screen Comment: OUTSIDE STUDY (Case [id number] COMPLETE) MRI BRAIN W/O&W CONT (MRI Detailed) CPT:68308 Reason for Study: Exam imported from outside Clinical History: Original Data for Imported Study Patient Name: GERDA ARAGON Date: 1950 Sex: F Study Date: 05/30/24 Study Time: 03:32:05 Study Description: MR head wo/w con [id number] Referring Physician: UNKNOWN, UNKNOWN Series 1: 27 [...] 3D Saved State - AutoSave Acquisition site: [facility] Report Status: Electronically Filed Date Reported: JUL 05, 2024 Report: Electronically generated report for outside study. Impression: Electronically generated report for outside study. VERIFIED BY: / *ELECTRONICALLY FILED* EVERT SANTIAGO [facility] Encounter Notes: All associated encounter notes This section contains the clinical notes associated to the Encounter. Date/Time Encounter Note(s) Provider Source Jun 14, 2024 08:24 AM CHIROPRACTIC NOTE: LOCAL TITLE: CHIROPRACTIC FOLLOW UP NOTE PB STANDARD TITLE: CHIROPRACTIC NOTE DATE OF NOTE: JUN 14, 2024@08:24 ENTRY DATE: JUN 14, 2024@08:24:40 AUTHOR: MORRIS RICH COSIGNER: URGENCY: STATUS: COMPLETED CHIROPRACTIC FOLLOW-UP VISIT Patient's language preference for health information: Bulgarian Other Communication Methods Needed: SUBJECTIVE: The is a 73 year old FEMALE being seen in the Chiropractic clinic for follow-up visit. The Truman describes her neck as stiff, but overall feeling better since her last adjustment, while her lower back is sore due to her level of activity. 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 /sarabjit/ [facility] Signed: 06/14/2024 08:38 [facility]
--- OUTSIDE RECORDS SUMMARY | 2024-06-16 04:00 | XMS_ITS | Encounter Summary ---
Author Name [facility] [place] [facility] [place] [facility] [place] Address [address] [place] [address] Care Team Providers Care Card Clothier Name Role Phone JUAN CARLOS BRENNAN Primary [...] MEDICARE ADVANTAGE MCR (WNR) Aug 30, 2022 [id number] GERDA TEJADA PATIENT HUMANA MCR (WNR) MEDICARE ADVANTAGE MCR (WNR) Aug 30, 2022 [id number] [phone] GERDA TEJADA PATIENT MEDICARE (WNR) MEDICARE (M) PART A Jun 30, 2017 PART A [id number] GERDA TEJADA PATIENT MEDICARE (WNR) MEDICARE (M) PART B Jun 30, 2017 PART B [id number] [phone] GERDA TEJADA PATIENT MEDICARE (WNR) MEDICARE (M) PART A Jun 30, 2017 PART A [id number] GERDA TEJADA PATIENT MEDICARE (WNR) MEDICARE (M) PART B Jun 30, 2017 PART B [id number] GERDA TEJADA PATIENT [facility] (WNR) MEDICARE ADVANTAGE [facility] (WNR) Sep 30, 2023 [id number] [phone] GERDA TEJADA PATIENT Selected Encounter This section includes the information on record at [place] for the Encounter. Date/Time Encounter Type Encounter Description Reason Provider Source Jun 16, 2024 09:00 AM NDL INSJ W/O NJX 1 OR 2 [facility] ICD-10-CM M25.512 Pain in left shoulder JONATHAN LAWTON [facility] Encounter Template Text not used by VA Assessments - Encounter Diagnoses This section includes the primary and secondary diagnoses documented for the Encounter. Date/Time Primary/Secondary Diagnosis Diagnosis Name Provider Source Jun 16, 2024 09:58 AM PRIMARY Pain in left shoulder DOUG LAWTON [facility] Jun 16, 2024 09:58 AM SECONDARY Pain in right knee DOUG LAWTON [place] Plan of Treatment: Future Appointments (+ 6 months) and Future Tests (+/- 45 days) The Plan of Treatment section includes future care activities for the patient from all [place] treatmentfacilities. This section includes future appointments and future orders which are active, pending or scheduled. Future Appointments This section includes appointments that were scheduled to occur 6 months from the date of the Encounter, up to a maximum of 20 appointments. The data comes from all [place] treatment facilities. Appointment Date/Time Appointment Type Appointme nt Facility Name Jun 21, 2024 01:40 PM [facility] Jul 05, 2024 09:40 AM [facility] [place] [facility] [facility] Jul 17, 2024 11:00 AM [facility] 2024 09:30 AM [facility] 2024 09:40 AM [facility] Jul 31, 2024 11:00 AM [facility] Aug 01, 2024 11:00 AM [facility] Aug 14, 2024 10:00 AM [facility] Aug 16, 2024 09:40 AM [facility] Aug 28, 2024 11:00 AM [facility] Aug 31, 2024 09:40 AM [facility] Sep 06, 2024 10:40 AM [facility] Sep 06, 2024 11:00 AM [facility] Sep 13, 2024 09:40 AM [facility] Oct 02, 2024 11:00 AM [facility] - [facility] [place] [facility] Oct 04, 2024 09:40 AM [facility] Oct 31, 2024 02:00 PM [facility] Nov 01, 2024 08:30 AM [facility] [place] Nov 01, 2024 09:40 AM [facility] - MEDICINE [facility] Nov 03, 2024 11:00 AM AM[facility]ORY - [facility] [place] [facility] Social History: Smoking Status (Most current) and Tobacco Use (All prior to encounter date) This section includes the most current, and the historical, smoking and tobacco- related health factors from the [place] facility where the Encounter took place. Current Smoking Status This section includes the most current smoking, or tobacco-related health factor, from the [place] facility where the Encounter took place. Date/Time Current Smoking Status Comment Facil ity January 21, 2024 10:00 AM VA-TOBACCO FORMER USER [facility] Tobacco Use History This section includes a history of the smoking, or tobacco-related health factors, that were collected on or before the date of the Encounter. The data comes from the [place] facility where the Encounter took place. Date/Time Smoking Status/Tobacco Use Comment F acility January 21, 2024 10:00 AM VA-TOBACCO QUIT 5 TO < 15 YRS [facility] January 27, 2023 12:31 PM VA-TOBACCO FORMER USER [facility] January 27, 2023 12:31 PM VA-TOBACCO QUIT 15 YRS OR MORE [facility] Advance Directives: All historical and current Section Date Range: From patient's date of to the date document was created. This section includes ALL of a patient's completed or amended [place] Advance and Rescinded Directives. The entries below indicate that a directive exists for the patient, but an actual copy is not included with this document. The data comes from all [place] facilities. Date Advance Directives Provider Source May 14, 2022 ADVANCE DIRECTIVE BERTHA NAZARIO [facility] Feb 05, 2017 ADVANCE DIRECTIVE DISCUSSION PEG SORENSEN [facility] Radiology Reports: +/- 30 days of the [...] the Encounter. The data comes from all [place] treatment facilities. Date/Time Radiology Report Provider Source May 30, 2024 03:32 PM MRI BRAIN W/[employer] CO NT: GERDA TEJADA [id number] -1950 F Exm Date: MAY 30, 2024@15:32 Req Phys: JUAN CARLOS BRENNAN Loc: OUTSIDE PB-MRI (Req'g Loc) Img Loc: OUTSIDE PB-MRI Service: Unknown Screen: Patient is unable to answer or is unsure Screen Comment: OUTSIDE STUDY (Case [id number] COMPLETE) MRI BRAIN W/O&W CONT (MRI Detailed) CPT:41764 Reason for Study: Exam imported from outside Clinical History: Original Data for Imported Study Patient Name: GERDA TEJADA Date: 1950 Sex: F Study Date: 05/30/24 Study Time: 03:32:05 Study Description: MR head wo/w con [id number] Referring Physician: UNKNOWN, UNKNOWN Series 1: 27 [...] 3D Saved State - AutoSave Acquisition site: [facility] Report Status: Electronically Filed Date Reported: JUL 05, 2024 Report: Electronically generated report for outside study. Impression: Electronically generated report for outside study. VERIFIED BY: / *ELECTRONICALLY FILED* EVERT SANTIAGO [facility] Encounter Notes: All associated encounter notes This section contains the clinical notes associated to the Encounter. Date/Time Encounter Note(s) Provider Source Jun 16, 2024 08:56 AM PHYSICAL THERAPY N OTE: LOCAL TITLE: PHYSICAL THERAPY NOTE PB STANDARD TITLE: PHYSICAL THERAPY NOTE DATE OF NOTE: JUN 16, 2024@08:56 ENTRY DATE: JUN 16, 2024@08:56:13 AUTHOR: DOUG LAWTON COSIGNER: URGENCY: STATUS: COMPLETED Diagnosis: Other specified Arthritis, left Shoulder; right knee pain Subjective [place] reports that her shoulder is hurting today rated 7/10. She states that she was pulling wire in her house up in the attic that she may have contributed to her increased shoulder pain. Objective QuickDASH: 27% The following active ROM observed in degrees Knee extension Left WFL Right 0 Knee flexion Left WFL Right 135 The following manual muscle tests on scale of 5 hip abduction Left 5/5 Right 5/5 hip adduction Left 5/5 Right 5/5 hip flexion Left 4/5 Right 4/5 knee flexion Left 5/5 Right 5/5 knee extension Left 5/5 Right 5/5 dorsiflexion Left 5/5 Right 5/5 Short sitting position used with knee flexion and hip adduction/abduction manual muscle tests. Upper Extremity: Left Strength ROM Shoulder Flexion 4/5 145 Shoulder Abduction 3-/5 110 Shoulder External Rotation 4-/5 82 Shoulder Internal Rotation 4-/5 WFL Elbow Flexion 5/5 WFL Elbow Extension 5/5 WFL Wrist Flexion 5/5 WFL Wrist Extension 5/5 WFL Therapeutic exercise: shoulder sara into flexion, scaption, abduction 2 minutes each wall slide flexion and abduction [...] minutes, 34 degrees, 20 mmHg intermittent compression Dry Needling Informed Consent: Patient was informed on the risks and benefits of dry needling (DN)as well as alternative treatments. Patient was educated on the risks for the procedure which include possible pneumothorax, bruising, infection and/or nerve injury. Patient was also educated on positive effects of DN such as releasing the trigger point, increasing flexibility of muscles, decreasing symptoms of pain and increasing function of the overall muscle. Patient was instructed to inform the therapist whether he/she is on an anticoagulant or has another blood disorder so that precautions can be taken. Patient was informed about other potential alternatives to treatment besides DN. Patient was also educated to inform the therapist of the sensations he/she experiences during the dry needling process, such as cramping, aching, sharpness, or numbness and tingling. Patient provided verbal consent for DN to be performed. Location (area prepared according to Infection Control Policy): left infraspinatus, left upper trapezius # [place] used in treatment:3 [place] disposed of according to Infection control Policy. # [place] disposed of in appropriate sharps receptacle:3 Education: Patient was educated to drink plenty of water after therapy treatment and that they may experience soreness for the next 10-12 hours. Patient was also instructed to continue with normal daily activities for the remainder of the day, however, not to engage in activities that will overstress the body beyond the patient's normal limits. Assessment Mrs. Tejada demonstrates progress towards her goals. She has met her goals for her right knee, but has not met her goals address her left shoulder pain. She was able to progress with therapeutic exercises today with minimal complaints of increased symptoms. She responded well to dry needling of left infraspinatus and left upper trapezius with decreased tonicity and tenderness to palpation. She will benefit from continued physical therapy services to address her left shoulder pain. Plan Will extend veterans plan of care for 1 visit every other week for 8 weeks to continue to address her left shoulder pain. Short term goals to be achieved in 4 weeks: 1) Patient will be (I) with home exercise. -Progress: met 2) Patient will decrease pain complaints by 25% or more in order to improve ADL performance. -Progress: partially met 3) Patient will increase UE strength by 1/2 grade or more overall in order to decrease pain and improve ADLs. -Progress: met intermediate goals to be achieved in 8 weeks: 1) Patient will have WNL bilateral shoulder ROM to decrease pain and improve functional mobility. -Progress: partially met 2) Patient will increase UE strength by +1 Manual Muscle Grade or more overall. -Progress: partially met 3) Patient will be decrease his QuickDASH score to 31% or lower for improved upper extremity function. -Progress: met 4) Patient will demonstrated full extension of her right knee to improve ambulation and function. -Progress: met Treatment Plan: Physical Therapy 1 days per week for 8 weeks;1 visit every other week for 8 weeks Physical therapy may include: Patient education, therapeutic exercise, therapeutic activities, manual therapy, neuromuscular reeducation, dry needling, and modalities as indicated. Total Treatment Time: 58 minutes Therapeutic exercise: 38 minutes Dry needlin minutes Hot/cold pack: 10 minutes Visit /sarabjit/ Doug Lawton PT, DPT [facility] Signed: 06/16/2024 09:59 DOUG LAWTON [facility]
--- OUTSIDE RECORDS SUMMARY | 2024-06-21 08:40 | XMS_ITS | Encounter Summary ---
Author Name [facility] [place] Address [address] [place] [address] Care Team Providers Care Tax Accounting Manager Name Role Phone JUAN CARLOS BRENNAN Primary [...] MEDICARE ADVANTAGE MCR (WNR) Aug 30, 2022 [id number] GERDA ARAGON PATIENT [employer]MA[employer] MCR (WNR) MEDICARE ADVANTAGE MCR (WNR) Aug 30, 2022 [id number] GERDA ARAGON PATIENT MEDICARE (WNR) MEDICARE (M) PART B Jun 30, 2017 PART B [id number] GERDA ARAGON PATIENT MEDICARE (WNR) MEDICARE (M) PART A Jun 30, 2017 PART A [id number] GERDA ARAGON PATIENT MEDICARE (WNR) MEDICARE (M) PART B Jun 30, 2017 PART B [id number] GERDA ARAGON PATIENT MEDICARE (WNR) MEDICARE (M) PART A Jun 30, 2017 PART A [id number] GERDA ARAGON PATIENT [facility] (WNR) MEDICARE ADVANTAGE [facility] (WNR) Sep 30, 2023 [id number] GERDA ARAGON PATIENT Selected Encounter This section includes the information on record at [place] for the Encounter. 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 Date/Time Primary/Secondary Diagnosis Diagnosis Name Provider Source Jun 21, 2024 01:50 PM PRIMARY Segmental and somatic dysfunction of cervical region [facility] Jun 21, 2024 01:50 PM SECONDARY Cervicalgia MORRIS RICH [facility] Jun 21, 2024 01:50 PM SECONDARY Intvrt disc disorders w radiculopathy, lumbosacral region [facility] Jun 21, 2024 01:50 PM SECONDARY Pain in thoracic spine [facility] Jun 21, 2024 01:50 PM SECONDARY Segmental and somatic dysfunction of lumbar region MORRIS RICH [facility] Jun 21, 2024 01:50 PM SECONDARY Segmental and somatic dysfunction of pelvic region [facility]RIS RICH [facility] Jun 21, 2024 01:50 PM SECONDARY Segmental and somatic dysfunction of thoracic region [facility] RICH [facility] Plan of Treatment: Future Appointments (+ 6 months) and Future Tests (+/- 45 days) The Plan of Treatment section includes future care activities for the patient from all [place] treatmentfacilities. This section includes future appointments and future orders which are active, pending or scheduled. Future Appointments This section includes appointments that were scheduled to occur 6 months from the date of the Encounter, up to a maximum of 20 appointments. The data comes from all [place] treatment facilities. Appointment Date/Time Appointment Type Appointme nt Facility Name Jul 05, 2024 09:40 AM [facility] [facility] Jul 17, 2024 11:00 AM [facility] 2024 09:30 AM [facility] 2024 09:40 AM [facility] Jul 31, 2024 11:00 AM [facility] Aug 01, 2024 11:00 AM [facility] Aug 14, 2024 10:00 AM [facility] Aug 16, 2024 09:40 AM [facility] Aug 28, 2024 11:00 AM [facility] Aug 31, 2024 09:40 AM [facility] Sep 06, 2024 10:40 AM [facility] Sep 06, 2024 11:00 AM [facility] Sep 13, 2024 09:40 AM [facility] Oct 02, 2024 11:00 AM [facility] [place] [facility] Oct 04, 2024 09:40 AM [facility] [place] [facility] Oct 31, 2024 02:00 PM [facility] Nov 01, 2024 08:30 AM [facility] [facility] Nov 01, 2024 09:40 AM [facility] [facility] Nov 03, 2024 11:00 AM [facility] [place] [facility] Nov 07, 2024 08:30 AM AM[facility]ORY - MEDICINE [facility] Vital Signs: All taken on the encounter date This section contains inpatient and outpatient Vital Signs collected on the date of the Encounter. Date/Time Temperature Pulse Blood Pressure Respiratory Rate SP02 Pain Height Weight Body Mass Index Source Jun 21, 2024 01:40 PM 98.3 74 131/82 [facility] Social History: Smoking Status (Most current) and Tobacco Use (All prior to encounter date) This section includes the most current, and the historical, smoking and tobacco- related health factors from the [place] facility where the Encounter took place. Current Smoking Status This section includes the most current smoking, or tobacco-related health factor, from the [place] facility where the Encounter took place. Date/Time Current Smoking Status Comment Facil ity January 21, 2024 10:00 AM VA-TOBACCO FORMER USER [facility] Tobacco Use History This section includes a history of the smoking, or tobacco-related health factors, that were collected on or before the date of the Encounter. The data comes from the [place] facility where the Encounter took place. Date/Time Smoking Status/Tobacco Use Comment F acility January 21, 2024 10:00 AM VA-[facility]CO QUIT 5 TO < 15 YRS [facility] January 27, 2023 12:31 PM [facility] January 27, 2023 12:31 PM VA-TOBACCO QUIT 15 YRS OR MORE [facility] Advance Directives: All historical and current Section Date Range: From patient's date of to the date document was created. This section includes ALL of a patient's completed or amended [place] Advance and Rescinded Directives. The entries below indicate that a directive exists for the patient, but an actual copy is not included with this document. The data comes from all [facility]. Date Advance Directives Provider Source May 14, 2022 ADVANCE DIRECTIVE BERTHA NAZARIO [facility] Feb 05, 2017 ADVANCE DIRECTIVE DISCUSSION PEG SORENSEN [facility] Radiology Reports: +/- 30 days of the [...] the Encounter. The data comes from all [place] treatment facilities. Date/Time Radiology Report Provider Source May 30, 2024 03:32 PM MRI BRAIN W/[facility] CO NT: GERDA ARAGON [id number] -1950 F Exm Date: MAY 30, 2024@15:32 Req Phys: JUAN CARLOS BRENNAN Loc: OUTSIDE PB-MRI (Req'g Loc) Img Loc: OUTSIDE PB-MRI Service: Unknown Screen: Patient is unable to answer or is unsure Screen Comment: OUTSIDE STUDY (Case [id number] COMPLETE) MRI BRAIN W/[facility] CONT (MRI Detailed) CPT:07489 Reason for Study: Exam imported from outside Clinical History: Original Data for Imported Study Patient Name: GERDA ARAGON Date: 1950 Sex: F Study Date: 05/30/24 Study Time: 03:32:05 Study Description: MR head wo/w con [id number] Referring Physician: UNKNOWN, UNKNOWN Series 1: 27 [...] VERIFIED BY: / *ELECTRONICALLY FILED* EVERT SANTIAGO [facility] Encounter Notes: All associated encounter notes This section contains the clinical notes associated to the Encounter. Date/Time Encounter Note(s) Provider Source Jun 21, 2024 01:42 PM CHIROPRACTIC NOTE: LOCAL TITLE: CHIROPRACTIC FOLLOW UP NOTE PB STANDARD TITLE: CHIROPRACTIC NOTE DATE OF NOTE: JUN 21, 2024@13:42 ENTRY DATE: JUN 21, 2024@13:42:18 AUTHOR: MORRIS RICH COSIGNER: URGENCY: STATUS: COMPLETED CHIROPRACTIC FOLLOW-UP VISIT Patient's language preference for health information: Burkinan Other Communication Methods Needed: SUBJECTIVE: [place] is a 73 year old FEMALE being seen in the Chiropractic clinic for follow-up visit. The states she has been busy working on her home. She describes her neck and back as not hurting too bad overall, despite her level of activity. She notices her neck pain is worse in the mornings as she wakes up. Today, the rates her pain level as a 2/10. PAST MEDICAL HISTORY: see problem list SOCIO-ECONOMIC [...] the restricted AROM. LUMBAR/THORACIC SPINE: MOVEMENT/POSTURE: [place] ambulates without issue. SEGMENTAL DYSFUNCTION: Joint dysfunction [...] exercise program and to commit to a group home exercise plan. /sarabjit/ [facility] Signed: 06/21/2024 13:49 MORRIS RICH
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
--- OUTSIDE RECORDS SUMMARY | 2024-07-17 06:00 | XMS_ITS | Encounter Summary ---
Author Name [place] Address [address] [place] [address] Care Team Providers Care Survey Research Manager Name Role Phone JUAN CARLOS BRENNAN [...] MEDICARE ADVANTAGE MCR (WNR) Aug 30, 2022 [id number] GERDA TEJADA PATIENT [employer] MCR (WNR) MEDICARE ADVANTAGE MCR (WNR) Aug 30, 2022 [id number] GERDA TEJADA PATIENT MEDICARE (WNR) MEDICARE (M) PART A Jun 30, 2017 PART A [id number] GERDA TEJADA PATIENT MEDICARE (WNR) MEDICARE (M) PART B Jun 30, 2017 PART B [id number] GERDA TEJADA PATIENT MEDICARE (WNR) MEDICARE (M) PART A Jun 30, 2017 PART A [id number] GERDA TEJADA PATIENT MEDICARE (WNR) MEDICARE (M) PART B Jun 30, 2017 PART B [id number] GERDA TEJADA PATIENT [facility] (WNR) MEDICARE ADVANTAGE [facility] (WNR) Sep 30, 2023 [id number] GERDA TEJADA PATIENT Selected Encounter This section includes the information on record at [place] for the Encounter. Date/Time Encounter Type Encounter Description Reason Provider Source Jul 17, 2024 11:00 AM NDL INSJ W/O NJX [address] OR [address] [facility] PHYSICAL THERAPY ICD-10-CM M13.812 Other specified arthritis, left shoulder JONATHAN LAWTON [facility] Encounter Template Text not used by [place] Assessments - Encounter Diagnoses This section includes the primary and secondary diagnoses documented for the Encounter. Date/Time Primary/Secondary Diagnosis Diagnosis Name Provider Source Jul 17, 2024 12:43 PM PRIMARY Other specified arthritis, left shoulder DOUG LAWTON [facility] Plan of Treatment: Future Appointments (+ [...] Date/Time Appointment Type Appointme nt Facility Name 2024 09:30 AM AMBULATORY - MEDICINE [facility] 2024 09:40 AM [facility] [place] [facility] [facility] [facility] Jul 31, 2024 11:00 AM [facility] [facility] Aug 01, 2024 11:00 AM AMBULATORY - MEDICINE [facility] Aug 14, 2024 10:00 AM AMBULATORY - MEDICINE [facility] Aug 16, 2024 09:40 AM [facility] [place] [facility] [place] [facility] Aug 28, 2024 11:00 AM AMBULATORY - MEDICINE [facility] Aug 31, 2024 09:40 AM [facility] [facility] Sep 06, 2024 10:40 AM [facility] [facility] Sep 06, 2024 11:00 AM [facility] [place] [facility] Sep 13, 2024 09:40 AM [facility] [facility] Oct 02, 2024 11:00 AM [facility] [place] [facility] Oct 04, 2024 09:40 AM [facility] [facility] Oct 31, 2024 02:00 PM [facility] [facility] Nov 01, 2024 08:30 AM [facility] [facility] Nov 01, 2024 09:40 AM [facility] Nov 03, 2024 11:00 AM [facility] [place] [facility] Nov 07, 2024 08:30 AM [facility] [place] [facility] Nov 07, 2024 08:32 AM [facility]ORY - [facility]IC[facility] [place] [facility] Nov 07, 2024 10:40 AM AMBULATORY - MEDICINE [facility] Active, Pending, and Scheduled Orders This section includes a listing of several types of active, pending, and scheduled orders, including clinic medications orders, diagnostic test orders, procedure orders and consult orders; where the start date of the order is 45 days before the date of the Encounter or 45 days after the date of theEncounter. The data comes from all [place] treatment facilities. Test Date/Time Test Type Test Details Facility Name Aug 31, 2024 11:10 PM Consult Order [facility]ITY [facility]-DERMATOLOGY [id number] Cons Procurement Representative's Choice [facility] Social History: Smoking Status (Most [...] 21, 2024 10:00 AM VA-TOBACCO FORMER USER [facility] Tobacco Use History This section includes a history of the smoking, or tobacco-related health factors, that were collected on or before the date of the Encounter. The data comes from the [place] facility where the Encounter took place. Date/Time Smoking Status/Tobacco Use Comment F acility January 21, 2024 10:00 AM VA-TOBACCO QUIT 5 TO < 15 YRS [facility] January 27, 2023 12:31 PM VA-TOBACCO FORMER USER [facility] January 27, 2023 12:31 PM VA-TOBACCO QUIT 15 YRS OR MORE [facility] Advance Directives: All historical and current Section Date Range: From patient's date of to the date document was created. This section includes ALL of a patient's completed or amended [place] Advance and Rescinded Directives. The entries below indicate that a directive exists for the patient, but an actual copy is not included with this document. The data comes from all [place] facilities. Date Advance Directives Provider Source May 14, 2022 ADVANCE DIRECTIVE BERTHA NAZARIO [facility] Feb 05, 2017 ADVANCE DIRECTIVE DISCUSSION PEG SORENSEN [facility] Encounter Notes: All associated encounter notes This section contains the clinical notes associated to the Encounter. Date/Time Encounter Note(s) Provider Source Jul 17, 2024 11:00 AM PHYSICAL THERAPY N OTE: LOCAL TITLE: PHYSICAL THERAPY NOTE PB STANDARD TITLE: PHYSICAL THERAPY NOTE DATE OF NOTE: JUL 17, 2024@11:00 ENTRY DATE: JUL 17, 2024@11:00:58 AUTHOR: DOUG LAWTON COSIGNER: URGENCY: STATUS: COMPLETED Diagnosis: Other specified Arthritis, left Shoulder; right knee pain Subjective [place] reports that her shoulder has been feeling better today. She reports minimal pain prior to treatment session today. She states that he right knee has been feeling better, but she has been wearing her brace more while building her home. Objective Therapeutic exercise: shoulder sara into flexion, scaption, abduction 2 minutes each corner stretch 3x30 seconds wall slide flexion and abduction 20x each Shoulder Row with scapular retraction 2x15 blue theraband Shoulder extension with scapular retraction 2x15 blue theraband Shoulder horizontal abduction with scapular retraction 2x10 blue theraband Shoulder internal rotation 2x15 blue theraband Shoulder external rotation 2x15 blue theraband shoulder flexion to 90 degrees 2x15 1 lbs. shoulder abduction to 90 degrees 2x15 1 lbs. Sholder press 2x15 1 lbs. Cryotherapy: -Thermx to left shoulder [...] Policy): left infraspinatus, left upper trapezius # [place] used in treatment:3 [place] disposed of according to Infection control Policy. # [place] disposed of in appropriate sharps receptacle:3 Education: [...] the patient's normal limits. Assessment Mrs. Tejada was able to progress with exercises to address her left shoulder. She tolerated an increase in resistance today. She responded well to dry needing of left shoulder musculature as noted above. Concluded today's session cryotherapy to her left shoulder. Plan Will extend veterans plan of care [...] decrease pain and improve ADLs. 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 Total Treatment Time: 57 minutes Therapeutic exercise: 37 minutes Dry needlin minutes Hot/cold pack: 10 minutes Visit /sarabjit/ Doug Lawton PT, DPT [facility] Signed: 07/17/2024 12:43 DOUG LAWTON [place] [facility]
--- OUTSIDE RECORDS SUMMARY | 2024-07-19 04:30 | XMS_ITS | Encounter Summary ---
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 Name Role Phone JUAN CARLOS BRENNAN Primary [...] Policy Erwin STEPHA MCR (WNR) MEDICARE ADVANTAGE [facility] ([facility]) Aug 30, 2022 [id number] GERDA ARAGON PATIENT HUMANA MCR (WNR) MEDICARE ADVANTAGE MCR (WNR) Aug 30, 2022 [id number] [phone] GERDA ARAGON PATIENT MEDICARE (WNR) MEDICARE (M) PART B Jun 30, 2017 PART B [id number] [phone] GERDA ARAGON PATIENT MEDICARE (WNR) MEDICARE (M) PART A Jun 30, 2017 PART A [id number] GERDA ARAGON PATIENT MEDICARE (WNR) MEDICARE (M) PART B Jun 30, 2017 PART B [id number] [phone] GERDA ARAGON PATIENT MEDICARE (WNR) MEDICARE (M) PART A Jun 30, 2017 PART A [id number] GERDA ARAGON PATIENT WELLCARE [facility] (WNR) MEDICARE ADVANTAGE [facility] (WNR) Sep 30, 2023 [id number] GERDA ARAGON PATIENT Selected Encounter This section includes the information on record at [place] for the Encounter. Date/Time Encounter Type Encounter Description Reason Provider Source 2024 09:30 AM OFF/OP EST DECEMBER X REQ PHY/QHP PRIMARY CARE/MEDICINE ICD-10-CM J01.80 Other acute sinusitis KATHY PRECIADO Samara Encounter Template Text not used by [place] Assessments - Encounter Diagnoses This section includes the primary and secondary diagnoses documented for the Encounter. Date/Time Primary/Secondary Diagnosis Diagnosis Name Provider Source 2024 06:03 PM PRIMARY Other acute sinusitis MERA PRECIADO [facility] Plan of Treatment: Future Appointments (+ 6 months) and Future Tests (+/- 45 days) The Plan of Treatment section includes future care activities for the patient from all [place] treatmentfacilities. This section includes future appointments and future orders which are active, pending or scheduled. Future Appointments This section includes appointments that were scheduled to occur 6 months from the date of the Encounter, up to a maximum of 20 appointments. The data comes from all [place] treatment facilities. Appointment Date/Time Appointment Type Appointme nt Facility Name Jul 31, 2024 11:00 AM [facility] [place] [facility] Aug 01, 2024 11:00 AM [facility] Aug 14, 2024 10:00 AM [facility] Aug 16, 2024 09:40 AM [facility] Aug 28, 2024 11:00 AM [facility] Aug 31, 2024 09:40 AM [facility] Sep 06, 2024 10:40 AM [facility] Sep 06, 2024 11:00 AM [facility] Sep 13, 2024 09:40 AM [facility] Oct 02, 2024 11:00 AM [facility] [place] [facility] Oct 04, 2024 09:40 AM [facility] Oct 31, 2024 02:00 PM [facility] Nov 01, 2024 08:30 AM [facility]INE [facility] Nov 01, 2024 09:40 AM AMBULATORY - MEDICINE [facility] Nov 03, 2024 11:00 AM [facility] [place] [facility] Nov 07, 2024 08:30 AM AMBULATORY - MEDICINE [facility] Nov 07, 2024 08:32 AM [facility] - [facility] [place] [facility] Nov 07, 2024 10:40 AM AMBULATORY - MEDICINE [facility] Nov 10, 2024 02:00 PM AMBULATORY - MEDICINE [facility] Nov 13, 2024 02:30 PM AM[facility]ORY - [facility]IC[facility] [place] [facility] Active, Pending, and Scheduled Orders This section includes a listing of several types of active, pending, and scheduled orders, including clinic medications orders, diagnostic test orders, procedure orders and consult orders; where the start date of the order is 45 days before the date of the Encounter or 45 days after the date of theEncounter. The data comes from all [place] treatment facilities. Test Date/Time Test Type Test Details Facility Name Aug 31, 2024 11:10 PM Consult Order COMMUNITY CARE-DERMATOLOGY 657A4 Cons Pipe Organ Mechanic's Choice [facility] Vital Signs: All taken on the encounter date This section contains inpatient and outpatient Vital Signs collected on the date of the Encounter. Date/Time Temperature Pulse Blood Pressure Respiratory Rate SP02 Pain Height Weight Body Mass Index Source 2024 09:40 AM 97.9 82 151/92 [facility] Social History: Smoking Status (Most current) and Tobacco Use (All prior to encounter date) This section includes the most current, and the historical, smoking and tobacco- related health factors from the [place] facility where the Encounter took place. Current Smoking Status This section includes the most current smoking, or tobacco-related health factor, from the [place] facility where the Encounter took place. Date/Time Current Smoking Status Comment Facil ity January 21, 2024 10:00 AM [place]-TOBACCO FORMER USER [facility] Tobacco Use History This section includes a history of the smoking, or tobacco-related health factors, that were collected on or before the date of the Encounter. The data comes from the [place] facility where the Encounter took place. Date/Time Smoking Status/Tobacco Use Comment F acility January 21, 2024 10:00 AM VA-TOBACCO QUIT 5 TO < 15 YRS [facility] January 27, 2023 12:31 PM VA-TOBACCO FORMER USER [facility] January 27, 2023 12:31 PM VA-TOBACCO QUIT 15 YRS OR MORE [facility] Advance Directives: All historical and current Section Date Range: From patient's date of to the date document was created. This section includes ALL of a patient's completed or amended [place] Advance and Rescinded Directives. The entries below indicate that a directive exists for the patient, but an actual copy is not included with this document. The data comes from all [facility]. Date Advance Directives Provider Source May 14, 2022 ADVANCE DIRECTIVE BERTHA NAZARIO [facility] Feb 05, 2017 ADVANCE DIRECTIVE DISCUSSION PEG SORENSEN [facility] Encounter Notes: All associated encounter notes This section contains the clinical notes associated to the Encounter. Date/Time Encounter Note(s) Provider Source 2024 09:30 AM NURSING PROGRESS N OTE: [facility] TITLE: NURSING NOTE PB STANDARD TITLE: NURSING PROGRESS NOTE DATE OF NOTE: 2024@09:30 ENTRY DATE: 2024@17:48:57 AUTHOR: ROBIN PRECIADO EXP COSIGNER: URGENCY: STATUS: COMPLETED This is a 74 year old FEMALE with known Allergies as noted: ALBUTEROL, CODEINE, LISINOPRIL C/C: Reyes reported to the clinic for sinus infection/cough S: [place]bury stated that Wednesday she started coughing, sinus pressure, and sore throat. stated that she ran a low grade fever Wednesday. Granbury stated that she is supposed to be getting injection for hip pain but is concerned it may be her lower back that is causing her the pain, She stated that in the past a surgeon recommend an ablation of the nerves in her lower back and she was scared to do that. stated that she is going to try the hip injections and if her pain does not improve she will discuss with PCP going back to the neurosurgeon to discuss the ablation. On the following Active Medications: Active Outpatient Medications (including Supplies): Active Outpatient Medications Status 1) ACETAMINOPHEN 500MG TAB TAKE ONE TABLET BY MOUTH ACTIVE THREE TIMES A DAY NEEDED FOR PAIN CAUTION: DO NOT EXCEED 4000MG PER DAY ACETAMINOPHEN (APAP) FROM ALL MEDS. 2) AMLODIPINE BESYLATE 2.5MG TAB TAKE ONE TABLET BY ACTIVE MOUTH ONCE A DAY FOR HIGH BLOOD PRESSURE 3) INDOMETHACIN 25MG CAP TAKE ONE CAPSULE BY MOUTH TWICE ACTIVE A DAY FOR OSTEOARTHRITIS (TAKE WITH FOOD) 4) LIDOCAINE 5% PATCH APPLY 1 PATCH TO SKIN SITE ONCE A ACTIVE DAY FOR LOCAL ANESTHESIA APPLY PATCH AND PRESS FIRMLY FOR 10-15 SECONDS. KEEP ON FOR 12 HOURS THEN REMOVE PATCH FOR 12 HOURS. 5) ONDANSETRON HCL 8MG TAB TAKE ONE-HALF TABLET BY MOUTH ACTIVE ONCE A DAY NEEDED FOR NAUSEA/VOMITING 6) ROPINIROLE HCL 1MG TAB TAKE ONE TABLET BY MOUTH TWICE ACTIVE DAILY NEEDED FOR RESTLESS LEG SYNDROME 7) VENLAFAXINE HCL 75MG 24HR SA CAP TAKE ONE CAPSULE BY ACTIVE MOUTH ONCE A DAY FOR DEPRESSION WITH FOOD. DO NOT ABRUPTLY DISCONTINUE MEDICATION. Active Non-VA Medications Status 1) Non-VA CEPHALEXIN 500MG CAP 500MG BY MOUTH EVERY 6 ACTIVE HOURS 8 Total Medications O: ambulated into the clinic without assistance. Steady gait. Alert and oriented x4. Unlabored breathing. Lung sounds clear throughout both lungs. Erythema noted to pharynx, no pustules noted. Ears clear bilaterally via visualization with otoscope. A/P: Reviewed with Provider. Provider advised that she will provide the with a handwritten script for Doxycline. Education provided to to complete all of the prescribed medication, to take medication with food, and drink plenty of fluids. voiced understanding. I advised Granbury when she is ready we can make an appt with PCP to discuss low back and neurosurgeon consult. [place] voiced understanding. advised to use tylenol/motrin for pain, lidocaine patches, and heat or ice to help with hip and back pain. Granbury voiced understanding. escorted to the lobby in stable condition. RTC: as needed /sarabjit/ Robin Preciado RN [place] BARBRA, SHY[facility]NE [facility] Signed: 2024 18:01 Receipt Acknowledged By: 07/22/2024 17:38 /sarabjit/ KVNG Cox-MAGI [place] kilgore JEANNIE RENEE [place] PAMELA JHAOC
--- OUTSIDE RECORDS SUMMARY | 2024-07-19 04:40 | XMS_ITS | Encounter Summary ---
Author Name [facility] [place] [facility] [place] Address [address] [place] [address] Care Team Providers Care Gas Meter Checker Name Role Phone JUAN CARLOS BRENNAN Primary [...] MEDICARE ADVANTAGE MCR (WNR) Aug 30, 2022 [id number] GERDA ARAGON PATIENT HUMANA MCR (WNR) MEDICARE ADVANTAGE MCR (WNR) Aug 30, 2022 [id number] GERDA ARAGON PATIENT MEDICARE (WNR) MEDICARE (M) PART A Jun 30, 2017 PART A [id number] [phone] GERDA ARAGON PATIENT MEDICARE (WNR) MEDICARE (M) PART B Jun 30, 2017 PART B [id number] GERDA ARAGON PATIENT MEDICARE (WNR) MEDICARE (M) PART A Jun 30, 2017 PART A [phone] GERDA ARAGON PATIENT MEDICARE (WNR) MEDICARE (M) PART B Jun 30, 2017 PART B [id number] GERDA ARAGON PATIENT WELLCARE MCR (WNR) MEDICARE ADVANTAGE [facility] (WNR) Sep 30, 2023 [id number] GERDA ARAGON PATIENT Selected Encounter This section includes the information on record at [place] for the Encounter. 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 Date/Time Primary/Secondary Diagnosis Diagnosis Name Provider Source 2024 09:59 AM PRIMARY Segmental and somatic dysfunction of cervical region [facility] 2024 09:59 AM SECONDARY Cervicalgia [facility] 2024 09:59 AM SECONDARY Other intervertebral disc displacement, lumbosacral region [facility] 2024 09:59 AM SECONDARY Pain in thoracic spine [facility] 2024 09:59 AM SECONDARY Segmental and somatic dysfunction of lumbar region [facility] 2024 09:59 AM SECONDARY Segmental and somatic dysfunction of pelvic region [facility] 2024 09:59 AM SECONDARY Segmental and somatic dysfunction of thoracic region [facility] Plan of Treatment: Future Appointments (+ 6 months) and Future Tests (+/- 45 days) The Plan of Treatment section includes future care activities for the patient from all [place] treatmentfacilities. This section includes future appointments and future orders which are active, pending or scheduled. Future Appointments This section includes appointments that were scheduled to occur 6 months from the date of the Encounter, up to a maximum of 20 appointments. The data comes from all [place] treatment facilities. Appointment Date/Time Appointment Type Appointme nt Facility Name Jul 31, 2024 11:00 AM [facility] [facility] Aug 01, 2024 11:00 AM [facility] [place] [facility] Aug 14, 2024 10:00 AM [facility] Aug 16, 2024 09:40 AM [facility] [place] [facility] Aug 28, 2024 11:00 AM [facility] Aug 31, 2024 09:40 AM [facility] Sep 06, 2024 10:40 AM [facility] Sep 06, 2024 11:00 AM [facility] Sep 13, 2024 09:40 AM [facility] [place] [facility] Oct 02, 2024 11:00 AM [facility]ATORY - [facility]IC[facility] [place] [facility] Oct 04, 2024 09:40 AM [facility] [place] [facility] Oct 31, 2024 02:00 PM [facility] [place] [facility] Nov 01, 2024 08:30 AM [facility] [place] [facility] Nov 01, 2024 09:40 AM [facility] [place] [facility] Nov 03, 2024 11:00 AM AM[facility]ULATORY - [facility]IC[facility] [place] [facility] Nov 07, 2024 08:30 AM [facility] [place] [facility] Nov 07, 2024 08:32 AM [facility]ULAT[facility] [place] [facility] Nov 07, 2024 10:40 AM [facility] [place] [facility] Nov 10, 2024 02:00 PM [facility] [place] [facility] Nov 13, 2024 02:30 PM AMBULATORY - MEDICINE [place] [facility] Active, Pending, and Scheduled Orders This section includes a listing of several types of active, pending, and scheduled orders, including clinic medications orders, diagnostic test orders, procedure orders and consult orders; where the start date of the order is 45 days before the date of the Encounter or 45 days after the date of theEncounter. The data comes from all [place] treatment [facility]. Test Date/Time Test Type Test Details Facility Name Aug 31, 2024 11:10 PM Consult Order COMMUNITY CARE-DERMATOLOGY [id number] Cons Aircraft Air Conditioning Mechanic's Choice [place] [facility] Vital Signs: All taken on the encounter date This section contains inpatient and outpatient Vital Signs collected on the date of the Encounter. Date/Time Temperature Pulse Blood Pressure Respiratory Rate SP02 Pain Height Weight Body Mass Index Source 2024 09:40 AM 97.9 82 151/92 [facility] Social History: Smoking Status (Most current) and Tobacco Use (All prior to encounter date) This section includes the most current, and the historical, smoking and tobacco- related health factors from the [place] facility where the Encounter took place. Current Smoking Status This section includes the most current smoking, or tobacco-related health factor, from the [place] facility where the Encounter took place. Date/Time Current Smoking Status Comment Facil ity January 21, 2024 10:00 AM [place]-TOBACCO FORMER USER [facility] Tobacco Use History This section includes a history of the smoking, or tobacco-related health factors, that were collected on or before the date of the Encounter. The data comes from the [place] facility where the Encounter took place. Date/Time Smoking Status/Tobacco Use Comment F acility January 21, 2024 10:00 AM [place]-TOBACCO QUIT 5 TO < 15 YRS [facility] January 27, 2023 12:31 PM VA-TOBACCO FORMER USER [facility] January 27, 2023 12:31 PM VA-TOBACCO QUIT 15 YRS OR MORE [facility] Advance Directives: All historical and current Section Date Range: From patient's date of to the date document was created. This section includes ALL of a patient's completed or amended [place] Advance and Rescinded Directives. The entries below indicate that a directive exists for the patient, but an actual copy is not included with this document. The data comes from all [place] facilities. Date Advance Directives Provider Source May 14, 2022 ADVANCE DIRECTIVE BERTHA NAZARIO [facility] Feb 05, 2017 ADVANCE DIRECTIVE DISCUSSION PEG SORENSEN [facility] Encounter Notes: All associated encounter notes This section contains the clinical notes associated to the Encounter. Date/Time Encounter Note(s) Provider Source 2024 09:52 AM CHIROPRACTIC NOTE: LOCAL TITLE: CHIROPRACTIC FOLLOW UP NOTE PB STANDARD TITLE: CHIROPRACTIC NOTE DATE OF NOTE: 2024@09:52 ENTRY DATE: 2024@09:52:08 AUTHOR: HILARIO,MORRIS E EXP COSIGNER: URGENCY: STATUS: COMPLETED CHIROPRACTIC FOLLOW-UP VISIT Patient's language preference for health information: Welsh Other Communication Methods Needed: SUBJECTIVE: The Mosby is a 74 year old FEMALE being seen in the Chiropractic clinic for follow-up visit. The Mosby states her neck and back pain has shifted in the T/L region. She plans to discuss pain in her hip with her PCP. Today, the rates her pain level as [...] the restricted AROM. LUMBAR/THORACIC SPINE: MOVEMENT/POSTURE: The Mosby ambulates without issue. SEGMENTAL DYSFUNCTION: Joint dysfunction [...] and back pain, we will treat The Mosby once every two weeks for six treatments. [...] exercise program and to commit to a [facility] exercise plan. /sarabjit/ SEN [facility] Signed: 2024 09:58 [facility]
--- OUTSIDE RECORDS SUMMARY | 2024-07-31 06:00 | XMS_ITS | Encounter Summary ---
Author Name [facility] [place] [facility] [place] Address [address] [place] [address] Care Team Providers Care Process Expert Name Role Phone JUAN CARLOS BRENNAN Primary [...] MEDICARE ADVANTAGE MCR (WNR) Aug 30, 2022 [id number] GERDA ARAGON PATIENT HUMANA MCR (WNR) MEDICARE ADVANTAGE MCR (WNR) Aug 30, 2022 [id number] [phone] GERDA ARAGON PATIENT MEDICARE (WNR) MEDICARE (M) PART A Jun 30, 2017 PART A [id number] GERDA ARAGON PATIENT MEDICARE (WNR) MEDICARE (M) PART B Jun 30, 2017 PART B [id number] GERDA ARAGON PATIENT MEDICARE (WNR) MEDICARE (M) PART A Jun 30, 2017 PART A [id number] GERDA ARAGON PATIENT MEDICARE (WNR) MEDICARE (M) PART B Jun 30, 2017 PART B [id number] GERDA ARAGON PATIENT [facility] (WNR) MEDICARE ADVANTAGE [facility] (WNR) Sep 30, 2023 [id number] GERDA ARAGON PATIENT Selected Encounter This section includes the information on record at [place] for the Encounter. Date/Time Encounter Type Encounter Description Reason Provider Source Jul 31, 2024 11:00 AM HOT OR COLD PACKS THERAPY PHYSICAL THERAPY ICD-10-CM M13.812 Other specified arthritis, left shoulder JONATHAN LAWTON [facility] Encounter Template Text not used by [place] Assessments - Encounter Diagnoses This section includes the primary and secondary diagnoses documented for the Encounter. Date/Time Primary/Secondary Diagnosis Diagnosis Name Provider Source Jul 31, 2024 11:59 AM PRIMARY Other specified arthritis, left shoulder [facility] Jul 31, 2024 11:59 AM SECONDARY Pain in right knee DOUG LAWTON [facility] Plan of Treatment: Future Appointments [...] Date/Time Appointment Type Appointme nt Facility Name Aug 01, 2024 11:00 AM AM[facility]UL[facility]ORY [place] [facility] Aug 14, 2024 10:00 AM [facility]ULATORY - MEDIC[facility] Aug 16, 2024 09:40 AM AMBULATORY - MEDIC[facility] Aug 28, 2024 11:00 AM AMBULATORY - [facility] Aug 31, 2024 09:40 AM [facility]BULATORY - MED[facility] Sep 06, 2024 10:40 AM [facility]ULATORY - [facility] Sep 06, 2024 11:00 AM [facility]ORY - [facility] Sep 13, 2024 09:40 AM [facility] [place] [facility] [facility] Oct 02, 2024 11:00 AM [facility] [place] [facility] [facility] Oct 04, 2024 09:40 AM [facility] Oct 31, 2024 02:00 PM [facility] [place] [facility] [place] [facility] Nov 01, 2024 08:30 AM [facility]ULATORY - MEDICINE [facility] Nov 01, 2024 09:40 AM AMBULATORY - MEDICINE [facility] Nov 03, 2024 11:00 AM [facility] [facility] Nov 07, 2024 08:30 AM AMBULATORY - MEDICINE [facility] Nov 07, 2024 08:32 AM [facility] [place] [facility] Nov 07, 2024 10:40 AM [facility] [place] [facility] [place] [facility] Nov 10, 2024 02:00 PM AMBULATORY - MEDICINE [facility] Nov 13, 2024 02:30 PM [facility]ORY - [facility] [place] [facility] Nov 14, 2024 10:40 AM AMBULATORY - MEDICINE MEDICINE [facility] Active, Pending, and Scheduled Orders This section includes a listing of several types of active, pending, and scheduled orders, including clinic medications orders, diagnostic test orders, procedure orders and consult orders; where the start date of the order is 45 days before the date of the Encounter or 45 days after the date of theEncounter. The data comes from all [place] treatment facilities. Test Date/Time Test Type Test Details Facility Name Aug 31, 2024 11:10 PM Consult Order COMMUNITY CARE-DERMATOLOGY [id number] Cons Dip Filler's Choice [facility] Social History: Smoking Status (Most [...] 21, 2024 10:00 AM VA-TOBACCO FORMER USER MEDICINE [facility] Tobacco Use History This section includes a history of the smoking, or tobacco-related health factors, that were collected on or before the date of the Encounter. The data comes from the [place] facility where the Encounter took place. Date/Time Smoking Status/Tobacco Use Comment F acility January 21, 2024 10:00 AM VA-TOBACCO QUIT 5 TO < 15 YRS [facility] January 27, 2023 12:31 PM VA-TOBACCO FORMER USER [facility] January 27, 2023 12:31 PM VA-TOBACCO QUIT 15 YRS OR MORE [facility] Advance Directives: All historical and current Section Date Range: From patient's date of to the date document was created. This section includes ALL of a patient's completed or amended [place] Advance and Rescinded Directives. The entries below indicate that a directive exists for the patient, but an actual copy is not included with this document. The data comes from all [place] facilities. Date Advance Directives Provider Source May 14, 2022 ADVANCE DIRECTIVE BERTHA NAZARIO [facility] Feb 05, 2017 ADVANCE DIRECTIVE DISCUSSION PEG SORENSEN [facility] Radiology Reports: +/- 30 days [...] treatment facilities. Date/Time Radiology Report Provider Source Aug 28, 2024 12:15 PM FOOT,LEFT 3 VIEWS OR MORE: GERDA ARAGON [id number] -1950 F Exm Date: AUG 28, 2024@12:15 Req Phys: JUAN CARLOS BRENNAN [facility] (Req'g Img Loc: PB-XRAY [place] Service: [place] [address] (Case [id number] COMPLETE) FOOT,LEFT 3 VIEWS OR MORE (RAD Detailed) CPT:80867 Proc Modifiers : LEFT Reason for Study: left pain and bruising Clinical History: Report Status: Verified Date Reported: AUG 28, 2024 Date Verified: AUG 28, 2024 Internet Manager E-Sig: Report: Left foot 3 views. No fracture or dislocation. No bony destruction. There are degenerative changes most significant in the first metatarsal phalangeal joint. Spur posterior and plantar aspect calcaneus. Impression: 1. No acute bony change 2. 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 Spur posterior and plantar aspect calcaneus 4. Recommend follow-up plain films if symptoms do not improve to rule out occult fracture Primary Interpreting Staff: THAD ZHANG, RADIOLOGIST (Internet Manager, no e-sig) /THAD Rogers [facility] Aug 28, 2024 12:11 PM CHEST X-RAY, 2 VIE WS: GERDA ARAGON [id number] -1950 F Exm Date: AUG 28, 2024@12:11 Req Phys: JUAN CARLOS BRENNAN Loc: [facility] (Req'g Img Loc: PB-XRAY [place] Service: [place] [address] (Case [id number] COMPLETE) CHEST X-RAY, 2 VIEWS (RAD Detailed) CPT:36406 Reason for Study: Cough x4 days Clinical History: Report Status: Verified Date Reported: AUG 28, 2024 Date Verified: AUG 28, 2024 Internet Manager E-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 Lungs hyperinflated with emphysematous changes present. Mild apical pleural thickening. No infiltrates or effusions. Heart normal size. Plaque thoracic aorta. Degenerative changes thoracic spine. Scoliosis. Findings similar previous study. Impression: COPD with apical pleural thickening similar to previous study dated 03/27/2024 Primary Interpreting Staff: THAD ZHANG, RADIOLOGIST (Internet Manager, no e-sig) /THAD Rogers [facility] Encounter Notes: All associated encounter notes This section contains the clinical notes associated to the Encounter. Date/Time Encounter Note(s) Provider Source Jul 31, 2024 10:50 AM PHYSICAL THERAPY N OTE: LOCAL TITLE: PHYSICAL THERAPY NOTE PB STANDARD TITLE: PHYSICAL THERAPY NOTE DATE OF NOTE: JUL 31, 2024@10:50 ENTRY DATE: JUL 31, 2024@10:50:57 AUTHOR: DOUG LAWTON COSIGNER: URGENCY: STATUS: COMPLETED Diagnosis: Other specified Arthritis, left Shoulder; right knee pain Subjective Reyes reports that her shoulder has been feeling better. She rates her shoulder pain at 2/10 prior to treatment session. She states that her right knee is not hurting today. Objective Therapeutic exercise: shoulder sara into flexion, scaption, abduction 2 minutes each corner stretch 3x30 seconds wall slide flexion and abduction 20x each Shoulder Row with scapular retraction 2x15 blue theraband Shoulder extension with scapular retraction 2x15 blue theraband Shoulder horizontal abduction with scapular retraction 2x10 blue theraband Bilateral shoulder ER with scapular retraction 2x10 green theraband Shoulder internal rotation 2x15 blue theraband Shoulder external rotation 2x15 blue theraband shoulder flexion to 90 degrees 2x10 2 lbs. shoulder abduction to 90 degrees 2x10 2 lbs. Sholder press 2x10 2 lbs. Wall ball circles CW & CCW 1 minute each calf stretch 2x1 minute SLR 2x15 2 lbs. side lying hip abduction 2x15 2 lbs. side lying hip adduction 2x15 2 lbs. Prone hip extension 2x15 2 lbs. Moist heat: -Thermx to left shoulder for 10 minutes, 104 degrees, 10 mmHg constant compression Assessment Reyes was able to progress with therapeutic exercises to address left shoulder pain and right knee pain. She was able to tolerate increased resistance, weight and repetitions today with minimal reports of increased symptoms. She reports compliance with her home exercise program. Dry needling was held today due to minimal complaints of pain from . She concluded today's session with moist heat to her left shoulder. Plan Will extend [...] decrease pain and improve ADLs. -Progress: met prison goals to be achieved in 8 weeks: [...] and modalities as indicated. Total Treatment Time: 66 minutes Therapeutic exercise: 56 minutes Hot/cold pack: 10 minutes Visit /sarabjit/ Doug Lawton PT, DPT [facility] Signed: 07/31/2024 11:59 [facility]
--- OUTSIDE RECORDS SUMMARY | 2024-08-01 06:00 | XMS_ITS | Encounter Summary ---
Author Name [facility] [place] Organization [facility] [place] Address [address] [place] [address] Care Team Providers Care Payroll Supervisor Name Role Phone JUAN CARLOS BRENNAN Primary [...] MEDICARE ADVANTAGE MCR (WNR) Aug 30, 2022 [id number] GERDA ARAGON PATIENT HUMANA MCR (WNR) MEDICARE ADVANTAGE MCR (WNR) Aug 30, 2022 [id number] GERDA ARAGON PATIENT MEDICARE (WNR) MEDICARE (M) PART A Jun 30, 2017 PART A [id number] GERDA ARAGON PATIENT MEDICARE (WNR) MEDICARE (M) PART B Jun 30, 2017 PART B [id number] GERDA ARAGON PATIENT MEDICARE (WNR) MEDICARE (M) PART A Jun 30, 2017 PART A [id number] GERDA ARAGON PATIENT MEDICARE (WNR) MEDICARE (M) PART B Jun 30, 2017 PART B [id number] GERDA ARAGON PATIENT [facility] MCR (WNR) MEDICARE ADVANTAGE [facility] (WNR) Sep 30, 2023 [id number] GERDA ARAGON PATIENT Selected Encounter This section includes the information on record at [place] for the Encounter. 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 Date/Time Primary/Secondary Diagnosis Diagnosis Name Provider Source Aug 01, 2024 11:22 AM PRIMARY Segmental and somatic dysfunction of cervical region M[facility]RIS RICH [facility] Aug 01, 2024 11:22 AM SECONDARY Cervicalgia [facility] RICH [facility] Aug 01, 2024 11:22 AM SECONDARY Oth intvrt disc degen, lumbosacr rgn w discog bck pain only M[facility]RIS RICH [facility] Aug 01, 2024 11:22 AM SECONDARY Pain in thoracic spine M[facility] RICH [facility] Aug 01, 2024 11:22 AM SECONDARY Segmental and somatic dysfunction of lumbar region [facility] Aug 01, 2024 11:22 AM SECONDARY Segmental and somatic dysfunction of pelvic region [facility] Aug 01, 2024 11:22 AM SECONDARY Segmental and somatic dysfunction of thoracic region [facility] Plan of Treatment: Future Appointments (+ 6 months) and Future Tests (+/- 45 days) The Plan of Treatment section includes future care activities for the patient from all [facility] treatmentfacilities. This section includes future appointments and future orders which are active, pending or scheduled. Future Appointments This section includes appointments that were scheduled to occur 6 months from the date of the Encounter, up to a maximum of 20 appointments. The data comes from all [place] treatment [facility]. Appointment Date/Time Appointment Type Appointme nt Facility Name Aug 14, 2024 10:00 AM AM[facility]ORY [place] [facility] Aug 16, 2024 09:40 AM [facility] [facility] Aug 28, 2024 11:00 AM AM[facility]ORY - MEDICINE [facility] Aug 31, 2024 09:40 AM AMBULATORY - MEDICINE [facility] Sep 06, 2024 10:40 AM AMBULATORY - MEDICINE [facility] Sep 06, 2024 11:00 AM AMBULATORY - MEDICINE [facility] Sep 13, 2024 09:40 AM AMBULATORY - MEDICINE [facility] Oct 02, 2024 11:00 AM AMBULATORY - [facility]ICINE [place] [facility] Oct 04, 2024 09:40 AM AMB[facility]ORY [place] [facility] Oct 31, 2024 02:00 PM AMBULATORY - MEDICINE [facility] Nov 01, 2024 08:30 AM AMBULATORY - MEDICINE [facility] Nov 01, 2024 09:40 AM AMBULATORY - MEDICINE [facility] Nov 03, 2024 11:00 AM AMBULATORY - MEDICINE [place] [facility] Nov 07, 2024 08:30 AM AMBULATORY - MEDICINE [facility] Nov 07, 2024 08:32 AM AMBULATORY - MEDICINE [place] [facility] Nov 07, 2024 10:40 AM AMBULATORY - MEDICINE [facility] Nov 10, 2024 02:00 PM AMBULATORY - MEDICINE [facility] Nov 13, 2024 02:30 PM AMBULATORY - MEDICINE [place] [facility] Nov 14, 2024 10:40 AM AMBULATORY - MEDICINE [facility] Nov 17, 2024 11:00 AM AMBULATORY - MEDICINE [place] [facility] Active, Pending, and Scheduled Orders This section includes a listing of several types of active, pending, and scheduled orders, including clinic medications orders, diagnostic test orders, procedure orders and consult orders; where the start date of the order is 45 days before the date of the Encounter or 45 days after the date of theEncounter. The data comes from all [place] treatment [facility]. Test Date/Time Test Type Test Details Facility Name Aug 31, 2024 11:10 PM Consult Order COMMUNITY CARE-DERMATOLOGY [id number] Cons Spool Carrier's Choice [place] [facility] Vital Signs: All taken on the encounter date This section contains inpatient and outpatient Vital Signs collected on the date of the Encounter. Date/Time Temperature Pulse Blood Pressure Respiratory Rate SP02 Pain Height Weight Body Mass Index Source Aug 01, 2024 11:00 AM 98 66 160/94 [facility] Social History: Smoking Status (Most current) and Tobacco Use (All prior to encounter date) This section includes the most current, and the historical, smoking and tobacco- related health factors from the [place] facility where the Encounter took place. Current Smoking Status This section includes the most current smoking, or tobacco-related health factor, from the [place] facility where the Encounter took place. Date/Time Current Smoking Status Comment Facil ity January 21, 2024 10:00 AM OR-TOBACCO FORMER USER [facility] Tobacco Use History This section includes a history of the smoking, or tobacco-related health factors, that were collected on or before the date of the Encounter. The data comes from the [place] facility where the Encounter took place. Date/Time Smoking Status/Tobacco Use Comment F acility January 21, 2024 10:00 AM OR-TOBACCO QUIT 5 TO < 15 YRS [facility] January 27, 2023 12:31 PM VA-TOBACCO FORMER USER [facility] January 27, 2023 12:31 PM OR-TOBACCO QUIT 15 YRS OR MORE [facility] Advance Directives: All historical and current Section Date Range: From patient's date of to the date document was created. This section includes ALL of a patient's completed or amended [place] Advance and Rescinded Directives. The entries below indicate that a directive exists for the patient, but an actual copy is not included with this document. The data comes from all [place] facilities. Date Advance Directives Provider Source May 14, 2022 ADVANCE DIRECTIVE BERTHA NAZARIO [facility] Feb 05, 2017 ADVANCE DIRECTIVE DISCUSSION PEG SORENSEN [facility] Radiology Reports: +/- 30 days of [...] the Encounter. The data comes from all [place] treatment facilities. Date/Time Radiology Report Provider Source Aug 28, 2024 12:15 PM FOOT,LEFT 3 VIEWS OR MORE: GERDA ARAGON [id number] -1950 F Exm Date: AUG 28, 2024@12:15 Req Phys: JUAN CARLOS BRENNAN Loc: PB-MICHAEL PACT [facility] (Req'g Img Loc: PB-XRAY [place] Service: [place] [address] (Case [id number] COMPLETE) FOOT,LEFT 3 VIEWS OR MORE (RAD Detailed) CPT:96015 Proc Modifiers : LEFT Reason for Study: left pain and bruising Clinical History: Report Status: Verified Date Reported: AUG 28, 2024 Date Verified: AUG 28, 2024 Shelter Case Manager E-Sig: Report: Left foot 3 views. [...] fracture Primary Interpreting Staff: THAD ZHANG, RADIOLOGIST (Shelter Case Manager, no e-sig) /THAD Rogers [facility] Aug 28, 2024 12:11 PM CHEST X-RAY, 2 VIE WS: GERDA ARAGON [id number] -1950 F Exm Date: AUG 28, 2024@12:11 Req Phys: JUAN CARLOS BRENNAN Loc: PB-MICHAEL PACT [facility] (Req'g Img Loc: PB-XRAY [place] Service: [place] [address] (Case [id number] COMPLETE) CHEST X-RAY, 2 VIEWS (RAD Detailed) CPT:62446 Reason for Study: Cough x4 days Clinical History: Report Status: Verified Date Reported: AUG 28, 2024 Date Verified: AUG 28, 2024 Shelter Case Manager E-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 Lungs hyperinflated with emphysematous changes present. Mild apical pleural thickening. No infiltrates or effusions. Heart normal size. Plaque thoracic aorta. Degenerative changes thoracic spine. Scoliosis. Findings similar previous study. Impression: COPD with apical pleural thickening similar to previous study dated 03/27/2024 Primary Interpreting Staff: THAD ZHANG, RADIOLOGIST (Shelter Case Manager, no e-sig) /THAD Rogers [facility] Encounter Notes: All associated encounter notes This section contains the clinical notes associated to the Encounter. Date/Time Encounter Note(s) Provider Source Aug 01, 2024 11:12 AM CHIROPRACTIC NOTE: LOCAL TITLE: CHIROPRACTIC FOLLOW UP NOTE PB STANDARD TITLE: CHIROPRACTIC NOTE DATE OF NOTE: AUG 01, 2024@11:12 ENTRY DATE: AUG 01, 2024@11:12:48 AUTHOR: MORRIS RICH COSIGNER: URGENCY: STATUS: COMPLETED CHIROPRACTIC FOLLOW-UP VISIT Patient's language preference for health information: Greenlandic Other Communication Methods Needed: SUBJECTIVE: The is a 74 year old FEMALE being seen in the Chiropractic clinic for follow-up visit. The [place] describes her neck and back pain as not too bad, with tension in the C/T region. She is scheduled for an injection in her right hip. Today, the rates her pain level as [...] restricted in all planes of motion. The [place] experience pain with the restricted AROM. LUMBAR/THORACIC SPINE: MOVEMENT/POSTURE: The [place] ambulates without issue. 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 /sarabjit/ [facility] Signed: 08/01/2024 11:21 MORRIS RICH
--- OUTSIDE RECORDS SUMMARY | 2024-08-14 05:00 | XMS_ITS | Encounter Summary ---
Author Name [facility] [facility] [place] [facility] [place] Address [address] [place] [address] Care Team Providers Care Assistant Branch Manager Name Role Phone JUAN CARLOS BRENNAN [...] MEDICARE ADVANTAGE MCR (WNR) Aug 30, 2022 [id number] GERDA TEJADA PATIENT HUMANA MCR (WNR) MEDICARE ADVANTAGE MCR (WNR) Aug 30, 2022 [id number] [phone] GERDA TEJADA PATIENT MEDICARE (WNR) MEDICARE (M) PART A Jun 30, 2017 PART A [id number] GERDA TEJADA PATIENT MEDICARE (WNR) MEDICARE (M) PART B Jun 30, 2017 PART B [id number] GERDA TEJADA PATIENT MEDICARE (WNR) MEDICARE (M) PART A Jun 30, 2017 PART A [id number] GERDA TEJADA PATIENT MEDICARE (WNR) MEDICARE (M) PART B Jun 30, 2017 PART B [id number] GERDA TEJADA PATIENT [facility] (WNR) MEDICARE ADVANTAGE [facility] (WNR) Sep 30, 2023 [id number] [phone] GERDA TEJADA PATIENT Selected Encounter This section includes the information on record at [place] for the Encounter. Date/Time Encounter Type Encounter Description Reason Provider Source Aug 14, 2024 10:00 AM HOT OR COLD PACKS THERAPY PHYSICAL THERAPY ICD-10-CM M13.812 Other specified arthritis, left shoulder JONATHAN LAWTON [facility] Encounter Template Text not used by [place] Assessments - Encounter Diagnoses This section includes the primary and secondary diagnoses documented for the Encounter. Date/Time Primary/Secondary Diagnosis Diagnosis Name Provider Source Aug 14, 2024 11:02 AM PRIMARY Other specified arthritis, left shoulder DOUG LAWTON [facility] Plan of Treatment: Future Appointments (+ 6 months) and Future Tests (+/- 45 days) The Plan of Treatment section includes future care activities for the patient from all [place] treatmentfacilities. This section includes future appointments and future orders which are active, pending or scheduled. Future Appointments This section includes appointments that were scheduled to occur 6 months from the date of the Encounter, up to a maximum of 20 appointments. The data comes from all [place] treatment facilities. Appointment Date/Time Appointment Type Appointme nt Facility Name Aug 16, 2024 09:40 AM AMBULATORY - MEDICINE [facility] [place] [facility] Aug 28, 2024 11:00 AM [facility] [facility] Aug 31, 2024 09:40 AM AMBULATORY - MEDICINE [facility] Sep 06, 2024 10:40 AM AMBULATORY - MEDICINE [facility] Sep 06, 2024 11:00 AM AMBULATORY - MEDICINE [facility] Sep 13, 2024 09:40 AM [facility] [place] [facility] Oct 02, 2024 11:00 AM [facility] [facility] Oct 04, 2024 09:40 AM AMBULATORY - MEDICINE [facility] Oct 31, 2024 02:00 PM AMBULATORY - MEDICINE [facility] Nov 01, 2024 08:30 AM AMBULATORY - MEDICINE [facility] Nov 01, 2024 09:40 AM AMBULATORY - MEDICINE [facility] Nov 03, 2024 11:00 AM [place] [facility] Nov 07, 2024 08:30 AM AMBULATORY - MEDICINE [facility] Nov 07, 2024 08:32 AM [facility] [place] [facility] Nov 07, 2024 10:40 AM AMBULATORY - MEDICINE [facility] Nov 10, 2024 02:00 PM AMBULATORY - MEDICINE [facility] Nov 13, 2024 02:30 PM AM[facility]ULATORY [facility] [facility] Nov 14, 2024 10:40 AM AMBULATORY - MEDICINE [facility] Nov 17, 2024 11:00 AM AMBULATORY - [facility] [place] [facility] Nov 23, 2024 01:45 PM AMBULATORY - [facility] [facility] Active, Pending, and Scheduled Orders This section includes a listing of several types of active, pending, and scheduled orders, including clinic medications orders, diagnostic test orders, procedure orders and consult orders; where the start date of the order is 45 days before the date of the Encounter or 45 days after the date of theEncounter. The data comes from all [place] treatment facilities. Test Date/Time Test Type Test Details Facility Name Aug 31, 2024 11:10 PM Consult Order COMMUNITY CARE-DERMATOLOGY [id number] Cons Application Software Engineer's Choice [facility] Social History: Smoking Status (Most current) and Tobacco Use (All prior to encounter date) This section includes the most current, and the historical, smoking and tobacco- related health factors from the [place] facility where the Encounter took place. Current Smoking Status This section includes the most current smoking, or tobacco-related health factor, from the [place] facility where the Encounter took place. Date/Time Current Smoking Status Comment Facil ity January 21, 2024 10:00 AM [place]-TOBACCO FORMER USER [facility] Tobacco Use History This section includes a history of the smoking, or tobacco-related health factors, that were collected on or before the date of the Encounter. The data comes from the [place] facility where the Encounter took place. Date/Time Smoking Status/Tobacco Use Comment F acility January 21, 2024 10:00 AM VA-TOBACCO QUIT 5 TO < 15 YRS [place] [facility] January 27, 2023 12:31 PM VA-TOBACCO FORMER USER [place] January 27, 2023 12:31 PM VA-TOBACCO QUIT 15 YRS OR MORE [facility] Advance Directives: All historical and current Section Date Range: From patient's date of to the date document was created. This section includes ALL of a patient's completed or amended VA Advance and Rescinded Directives. The entries below indicate that a directive exists for the patient, but an actual copy is not included with this document. The data comes from all [place] facilities. Date Advance Directives Provider Source May [...] the Encounter. The data comes from all [place] treatment facilities. Date/Time Radiology Report Provider Source Aug 28, 2024 12:15 PM FOOT,LEFT 3 VIEWS OR MORE: GERDA TEJADA [id number] -1950 F Exm Date: AUG 28, 2024@12:15 Req Phys: JUAN CARLOS BRENNAN Loc: [facility] (Req'g Img Loc: PB-XRAY [place] Service: [place] [address] (Case [id number] COMPLETE) FOOT,LEFT 3 VIEWS OR MORE (RAD Detailed) CPT:03080 Proc Modifiers : LEFT Reason for Study: left pain and bruising Clinical History: Report Status: Verified Date Reported: AUG 28, 2024 Date Verified: AUG 28, 2024 Hospitality Aide E-Sig: Report: Left foot 3 views. No [...] fracture Primary Interpreting Staff: THAD ZHANG, RADIOLOGIST (Hospitality Aide, no e-sig) /THAD Rogers [facility] Aug 28, 2024 12:11 PM CHEST X-RAY, 2 VIE WS: GERDA TEAJDA [id number] -1950 F Exm Date: AUG 28, 2024@12:11 Req Phys: JUAN CARLOS BRENNAN Pat Loc: PB-MICHAEL PACT [facility] (Req'g Img Loc: PB-XRAY [place] Service: [place] [address] (Case [id number] COMPLETE) CHEST X-RAY, 2 VIEWS (RAD Detailed) CPT:18510 Reason for Study: Cough x4 days Clinical History: Report Status: Verified Date Reported: AUG 28, 2024 Date Verified: AUG 28, 2024 Hospitality Aide E-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 Lungs hyperinflated with emphysematous changes present. Mild apical pleural thickening. No infiltrates or effusions. Heart normal size. Plaque thoracic aorta. Degenerative changes thoracic spine. Scoliosis. Findings similar previous study. Impression: COPD with apical pleural thickening similar to previous study dated 03/27/2024 Primary Interpreting Staff: THAD ZHANG, RADIOLOGIST (Hospitality Aide, no e-sig) /THAD Rogers [facility] Encounter Notes: All associated encounter notes This section contains the clinical notes associated to the Encounter. Date/Time Encounter Note(s) Provider Source Aug 14, 2024 10:01 AM PHYSICAL THERAPY N OTE: LOCAL TITLE: PHYSICAL THERAPY NOTE PB STANDARD TITLE: PHYSICAL THERAPY NOTE DATE OF NOTE: AUG 14, 2024@10:01 ENTRY DATE: AUG 14, 2024@10:06:46 AUTHOR: DOUG LAWTON COSIGNER: URGENCY: STATUS: COMPLETED Diagnosis: Other specified Arthritis, left Shoulder; right knee pain Subjective Duchesne reports that her shoulder has been doing well, but she fell in the middle of the night last night and caught herself. She rates her left shoulder pain at 3/10 and states that her right knee is sore. Objective Therapeutic exercise: shoulder sara into flexion, [...] circles CW & CCW 1 minute each Moist heat: -Thermx to left shoulder for 10 minutes, 104 degrees, 10 mmHg constant compression Assessment Mrs. Tejada was tender to palpation over left infraspinatus muscle belly prior to treatment session today. She responded well to therapeutic exercises to assist with improving shoulder range of motion and strength. She was able to complete exercises with minimal reports of increased symptoms. She concluded today's treatment with moist heat to her left shoulder for symptom management. Upon completions of treatment session today she stated that she was not having pain in her left shoulder. Plan Will extend veterans [...] decrease pain and improve ADLs. -Progress: met retirement goals to be achieved in 8 weeks: [...] and modalities as indicated. Total Treatment Time: 52 minutes Therapeutic exercise: 42 minutes Hot/cold pack: 10 minutes Visit /sarabjit/ Doug Lawton PT, DPT Dawson Dominique [facility] Signed: 08/14/2024 11:02 [facility]
--- OUTSIDE RECORDS SUMMARY | 2024-08-16 04:40 | XMS_ITS | Encounter Summary ---
Author Name [facility] [place] [facility] [place] [facility] [place] Address [address] [place] [address] Care Team Providers Care Opthalmic Tech Name Role Phone JUAN CARLOS BRENNAN Primary [...] MEDICARE ADVANTAGE MCR (WNR) Aug 30, 2022 [id number] GERDA ARAGON PATIENT HUMANA MCR (WNR) MEDICARE ADVANTAGE MCR (WNR) Aug 30, 2022 [id number] [phone] GERDA ARAGON PATIENT MEDICARE (WNR) MEDICARE (M) PART A Jun 30, 2017 PART A [id number] GERDA ARAGON PATIENT MEDICARE (WNR) MEDICARE (M) PART B Jun 30, 2017 PART B [id number] [phone] GERDA ARAGON PATIENT MEDICARE (WNR) MEDICARE (M) PART A Jun 30, 2017 PART A [id number] GERDA ARAGON PATIENT MEDICARE (WNR) MEDICARE (M) PART B Jun 30, 2017 PART B [id number] GERDA ARAGON PATIENT WELLCARE MCR (WNR) MEDICARE ADVANTAGE [facility] (WNR) Sep 30, 2023 [id number] GERDA ARAGON PATIENT Selected Encounter This section includes the information on record at [place] for the Encounter. 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 Date/Time Primary/Secondary Diagnosis Diagnosis Name Provider Source Aug 16, 2024 10:02 AM PRIMARY Segmental and somatic dysfunction of cervical region [facility] [place] [facility] Aug 16, 2024 10:02 AM SECONDARY Cervicalgia [facility] RICH [place] [facility] Aug 16, 2024 10:02 AM SECONDARY Oth intvrt disc degen, lumbosacr w discog bck & lw extrm pn [facility] R[facility] [place] [facility] Aug 16, 2024 10:02 AM SECONDARY Pain in thoracic spine [facility] R[facility] [place] [facility] Aug 16, 2024 10:02 AM SECONDARY Segmental and somatic dysfunction of lumbar region [facility] [place] [facility] Aug 16, 2024 10:02 AM SECONDARY Segmental and somatic dysfunction of pelvic region [facility] RICH [place] [facility] Aug 16, 2024 10:02 AM SECONDARY Segmental and somatic dysfunction of [...] 20 appointments. The data comes from all [place] treatment [facility]. Appointment Date/Time Appointment Type Appointme nt Facility Name Aug 28, 2024 11:00 AM AM[place]ULATORY [place] [facility] Aug 31, 2024 09:40 AM [facility] [place] [facility] Sep 06, 2024 10:40 AM [facility] [place] [facility] [facility] Sep 06, 2024 11:00 AM [facility] [place] [facility] Sep 13, 2024 09:40 AM [facility] [place] [facility] Oct 02, 2024 11:00 AM [facility] [place] [facility] Oct 04, 2024 09:40 AM [facility] [place] [facility] Oct 31, 2024 02:00 PM [facility] [place] [facility] [facility] Nov 01, 2024 08:30 AM AMB[facility] [place]IC[place] [facility] Nov 01, 2024 09:40 AM [facility] [place] [facility] [place] [facility] Nov 03, 2024 11:00 AM [facility] [place] [facility] Nov 07, 2024 08:30 AM AM[facility] [place] [facility] Nov 07, 2024 08:32 AM [facility] - [facility] [place] [facility] Nov 07, 2024 10:40 AM AM[facility] [place]IC[place] [facility] Nov 10, 2024 02:00 PM [facility] [place] [facility] [facility] Nov 13, 2024 02:30 PM [facility] [place] [facility] Nov 14, 2024 10:40 AM [facility] [place] [facility] Nov 17, 2024 11:00 AM AMBULATORY - [facility]IC[facility] [place] [facility] Nov 23, 2024 01:45 PM AMBULATORY - [facility]IC[facility] [place] [facility] Nov 29, 2024 09:40 AM AMBULATORY - MEDICINE [facility] Active, Pending, and Scheduled Orders This section includes a listing of several types of active, pending, and scheduled orders, including clinic medications orders, diagnostic test orders, procedure orders and consult orders; where the start date of the order is 45 days before the date of the Encounter or 45 days after the date of theEncounter. The data comes from all [facility]. Test Date/Time Test Type Test Details Facility Name Aug 31, 2024 11:10 PM Consult Order COMMUNITY CARE-DERMATOLOGY [id number] Cons Check Processing Clerk's Choice [facility] [facility] Vital Signs: All taken on the encounter date This section contains inpatient and outpatient Vital Signs collected on the date of the Encounter. Date/Time Temperature Pulse Blood Pressure Respiratory Rate SP02 Pain Height Weight Body Mass Index Source Aug 16, 2024 09:40 AM 98.5 71 142/85 [facility] Social History: Smoking Status (Most current) and Tobacco Use (All prior to encounter date) This section includes the most current, and the historical, smoking and tobacco- related health factors from the [place] facility where the Encounter took place. Current Smoking Status This section includes the most current smoking, or tobacco-related health factor, from the [place] facility where the Encounter took place. Date/Time Current Smoking Status Comment Facil ity January 21, 2024 10:00 AM [place]-TOBACCO FORMER USER [facility] Tobacco Use History This section includes a history of the smoking, or tobacco-related health factors, that were collected on or before the date of the Encounter. The data comes from the [place] facility where the Encounter took place. Date/Time Smoking Status/Tobacco Use Comment F acility January 21, 2024 10:00 AM AR-TOBACCO QUIT 5 TO < 15 YRS [facility] January 27, 2023 12:31 PM VA-TOBACCO FORMER USER [facility] January 27, 2023 12:31 PM [place]-TOBACCO QUIT 15 YRS OR MORE [facility] Advance Directives: All historical and current Section Date Range: From patient's date of to the date document was created. This section includes ALL of a patient's completed or amended [place] Advance and Rescinded Directives. The entries below indicate that a directive exists for the patient, but an actual copy is not included with this document. The data comes from all [place] facilities. Date Advance Directives Provider Source May 14, 2022 ADVANCE DIRECTIVE BERTHA NAZARIO [facility] Feb 05, 2017 ADVANCE DIRECTIVE DISCUSSION PEG SORENSEN [facility] Radiology Reports: +/- 30 days [...] the Encounter. The data comes from all [place] treatment facilities. Date/Time Radiology Report Provider Source Aug 28, 2024 12:15 PM FOOT,LEFT 3 VIEWS OR MORE: GERDA ARAGON [id number] -1950 F Exm Date: AUG 28, 2024@12:15 Req Phys: JUAN CARLOS BRENNAN Pat Loc: PB-MICHAEL PACT [facility] (Req'g Img Loc: PB-XRAY [place] Service: [place] [address] (Case [id number] COMPLETE) FOOT,LEFT 3 VIEWS OR MORE (RAD Detailed) CPT:48975 Proc Modifiers : LEFT Reason for Study: left pain and bruising Clinical History: Report Status: Verified Date Reported: AUG 28, 2024 Date Verified: AUG 28, 2024 Producer E-Sig: Report: Left foot 3 views. No [...] fracture Primary Interpreting Staff: THAD ZHANG, RADIOLOGIST (Producer, no e-sig) /THAD Rogers [facility] Aug 28, 2024 12:11 PM CHEST X-RAY, 2 VIE WS: GERDA ARAGON [id number] -1950 F Exm Date: AUG 28, 2024@12:11 Req Phys: JUAN CARLOS BRENNAN Pat Loc: PB-MICHAEL PACT [facility] (Req'g Img Loc: PB-XRAY [place] Service: [place] [address] (Case [id number] COMPLETE) CHEST X-RAY, 2 VIEWS (RAD Detailed) CPT:92310 Reason for Study: Cough x4 days Clinical History: Report Status: Verified Date Reported: AUG 28, 2024 Date Verified: AUG 28, 2024 Producer E-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 Lungs hyperinflated with emphysematous changes present. Mild apical pleural thickening. No infiltrates or effusions. Heart normal size. Plaque thoracic aorta. Degenerative changes thoracic spine. Scoliosis. Findings similar previous study. Impression: COPD with apical pleural thickening similar to previous study dated 03/27/2024 Primary Interpreting Staff: THAD ZHANG, RADIOLOGIST (Producer, no e-sig) /THAD Rogers [facility] Encounter Notes: All associated encounter notes This section contains the clinical notes associated to the Encounter. Date/Time Encounter Note(s) Provider Source Aug 16, 2024 09:50 AM CHIROPRACTIC NOTE: LOCAL TITLE: CHIROPRACTIC FOLLOW UP NOTE PB STANDARD TITLE: CHIROPRACTIC NOTE DATE OF NOTE: AUG 16, 2024@09:50 ENTRY DATE: AUG 16, 2024@09:50:37 AUTHOR: MORRIS RICH COSIGNER: URGENCY: STATUS: COMPLETED CHIROPRACTIC FOLLOW-UP VISIT Patient's language preference for health information: Croatian Other Communication Methods Needed: SUBJECTIVE: The Sheridan is a 74 year old FEMALE being seen in the Chiropractic clinic for follow-up visit. The states she tripped over a cord and fell onto her knees four days ago. She describes her neck and back as sore with noticeable pain at the T/L junction. The states her right hip continues to be painful, with no change after her hip injection on 08/09/24. Today, the rates her pain level as [...] The once every two weeks for six additional treatments. Prognosis: Fair Today's treatment of the [...] exercise program and to commit to a retirement exercise plan. /sarabjit/ [facility] Signed: 08/16/2024 10:01 MORRIS RICH
--- OUTSIDE RECORDS SUMMARY | 2024-08-31 04:40 | XMS_ITS | Encounter Summary ---
Author Name [facility] [place] [facility] [place] Address [address] [place] [address] Care Team Providers Care Correspondence Specialist Name Role Phone JUAN CARLOS BRENNAN Primary [...] MEDICARE ADVANTAGE MCR (WNR) Aug 30, 2022 [id number] [phone] GERDA ARAGON PATIENT HUMANA MCR (WNR) MEDICARE ADVANTAGE MCR (WNR) Aug 30, 2022 [id number] GERDA ARAGON PATIENT MEDICARE (WNR) MEDICARE (M) PART A Jun 30, 2017 PART A [id number] GERDA ARAGON PATIENT MEDICARE (WNR) MEDICARE (M) PART B Jun 30, 2017 PART B [id number] GERDA ARAGON PATIENT MEDICARE (WNR) MEDICARE (M) PART A Jun 30, 2017 PART A [id number] GERDA ARAGON PATIENT MEDICARE (WNR) MEDICARE (M) PART B Jun 30, 2017 PART B [id number] GERDA ARAGON PATIENT WELLCARE MCR (WNR) MEDICARE ADVANTAGE [facility] (WNR) Sep 30, 2023 [id number] GERDA ARAGON PATIENT Selected Encounter This section includes the information on record at [place] for the Encounter. 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 Date/Time Primary/Secondary Diagnosis Diagnosis Name Provider Source Aug 31, 2024 09:45 AM PRIMARY Segmental and somatic dysfunction of cervical region [facility]RIS RICH [facility] Aug 31, 2024 09:45 AM SECONDARY Cervicalgia MORRIS RICH [facility] Aug 31, 2024 09:45 AM SECONDARY Oth intvrt disc degen, lumbosacr rgn w discog bck pain only MORRIS RICH [place] Aug 31, 2024 09:45 AM SECONDARY Pain in thoracic spine MORRIS RICH [facility] Aug 31, 2024 09:45 AM SECONDARY Segmental and somatic dysfunction of lumbar region M[facility] RICH [facility] Aug 31, 2024 09:45 AM SECONDARY Segmental and somatic dysfunction of pelvic region [facility] R[facility] Aug 31, 2024 09:45 AM SECONDARY Segmental and somatic dysfunction of [...] The data comes from all [place] treatment [facility]. Appointment Date/Time Appointment Type Appointme nt Facility Name Sep 06, 2024 10:40 AM AMBULATORY - MEDICINE [facility] Sep 06, 2024 11:00 AM AMBULATORY - MEDICINE [facility] Sep 13, 2024 09:40 AM AMBULATORY - MEDICINE [facility] Oct 02, 2024 11:00 AM [facility]ORY - [facility]IC[facility] Oct 04, 2024 09:40 AM AMBULATORY - MEDICINE [facility] Oct 31, 2024 02:00 PM AMBULATORY - MEDICINE [facility] Nov 01, 2024 08:30 AM AMBULATORY - MEDICINE [facility] Nov 01, 2024 09:40 AM AMBULATORY - MEDICINE [facility] Nov 03, 2024 11:00 AM AM[facility]ULATORY - [facility] Nov 07, 2024 08:30 AM AMBULATORY - MEDICINE [facility] Nov 07, 2024 08:32 AM AM[facility]UL[facility]ORY - [facility] Nov 07, 2024 10:40 AM AMBULATORY - MEDICINE [facility] Nov 10, 2024 02:00 PM AMBULATORY - MEDICINE [facility] Nov 13, 2024 02:30 PM AMBULATORY - [facility] Nov 14, 2024 10:40 AM AMBULATORY - MEDICINE [facility] Nov 17, 2024 11:00 AM AMBULATORY - [facility]IC[facility] Nov 23, 2024 01:45 PM AMBULATORY - MEDICINE [facility] Nov 29, 2024 09:40 AM AMBULATORY - MEDICINE [facility] Dec 01, 2024 10:30 AM AMBULATORY - MEDICINE [facility] Dec 07, 2024 02:00 PM AMBULATORY - MEDICINE [facility] Active, Pending, and Scheduled Orders This section includes a listing of several types of active, pending, and scheduled orders, including clinic medications orders, diagnostic test orders, procedure orders and consult orders; where the start date of the order is 45 days before the date of the Encounter or 45 days after the date of theEncounter. The data comes from all [facility]. Test Date/Time Test Type Test Details Facility Name Aug 31, 2024 11:10 PM Consult Order COMMUNITY CARE-DERMATOLOGY [id number] Cons Wheelchair Rental Clerk's Choice [facility] Vital Signs: All taken on the encounter date This section contains inpatient and outpatient Vital Signs collected on the date of the Encounter. Date/Time Temperature Pulse Blood Pressure Respiratory Rate SP02 Pain Height Weight Body Mass Index Source Aug 31, 2024 09:40 AM 98 71 164/90 [facility] Social History: Smoking Status (Most current) and [...] F acility January 21, 2024 10:00 AM [place]-TOBACCO QUIT 5 TO < 15 YRS [facility] January 27, 2023 12:31 PM VA-TOBACCO FORMER USER [facility] January 27, 2023 12:31 PM VA-TOBACCO QUIT 15 YRS OR MORE [facility] Advance Directives: All historical and current Section Date Range: From patient's date of to the date document was created. This section includes ALL of a patient's completed or amended [place] Advance and Rescinded Directives. The entries below indicate that a directive exists for the patient, but an actual copy is not included with this document. The data comes from all [place] facilities. Date Advance Directives Provider Source May 14, 2022 ADVANCE DIRECTIVE BERTHA NAZARIO [facility] Feb 05, 2017 ADVANCE DIRECTIVE DISCUSSION PEG SORENSEN [facility] Radiology Reports: +/- 30 days of the [...] FOOT,LEFT 3 VIEWS OR MORE: GERDA ARAGON [id number] -1950 F Exm Date: AUG 28, 2024@12:15 Req Phys: JUAN CARLOS BRENNAN Pat Loc: [facility] (Req'g Img Loc: [facility] [place] Service: [place] [address] (Case [id number] COMPLETE) FOOT,LEFT 3 VIEWS OR MORE (RAD Detailed) CPT:88076 Proc Modifiers : LEFT Reason for Study: left pain and bruising Clinical History: Report Status: Verified Date Reported: AUG 28, 2024 Date Verified: AUG 28, 2024 Metal Miner E-Sig: Report: Left foot 3 views. No [...] fracture Primary Interpreting Staff: THAD ZHANG, RADIOLOGIST (Metal Miner, no e-sig) /THAD Saravia [facility] Aug 28, 2024 12:11 PM CHEST X-RAY, 2 VIE WS: GERDA ARAGON [id number] -1950 F Exm Date: AUG 28, 2024@12:11 Req Phys: JUAN CARLOS BRENNAN Loc: [facility] (Req'g Img Loc: [facility] [place] Service: [place] [address] (Case [id number] COMPLETE) CHEST X-RAY, 2 VIEWS (RAD Detailed) CPT:89235 Reason for Study: Cough x4 days Clinical History: Report Status: Verified Date Reported: AUG 28, 2024 Date Verified: AUG 28, 2024 Metal Miner E-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 Lungs hyperinflated with emphysematous changes present. Mild apical pleural thickening. No infiltrates or effusions. Heart normal size. Plaque thoracic aorta. Degenerative changes thoracic spine. Scoliosis. Findings similar previous study. Impression: COPD with apical pleural thickening similar to previous study dated 03/27/2024 Primary Interpreting Staff: THAD ZHANG, RADIOLOGIST (Metal Miner, no e-sig) /THAD Rogers [facility] Encounter Notes: All associated encounter notes This section contains the clinical notes associated to the Encounter. Date/Time Encounter Note(s) Provider Source Aug 31, 2024 09:32 AM CHIROPRACTIC NOTE: LOCAL TITLE: CHIROPRACTIC FOLLOW UP NOTE PB STANDARD TITLE: CHIROPRACTIC NOTE DATE OF NOTE: AUG 31, 2024@09:32 ENTRY DATE: AUG 31, 2024@09:32:04 AUTHOR: MORRIS RICH COSIGNER: URGENCY: STATUS: COMPLETED CHIROPRACTIC FOLLOW-UP VISIT Patient's language preference for health information: Icelandic Other Communication Methods Needed: SUBJECTIVE: The is a 74 year old FEMALE being seen in the Chiropractic clinic for follow-up visit. The describes her neck and back as doing fairly well, with her primarily complaint of foot pain due to dropping a board on her foot. Today, the rates her pain level as [...] and back pain, we will treat The [place] once every two weeks for six treatments. [...] exercise program and to commit to a detention exercise plan. /sarabjit/ SEN [facility] Signed: 08/31/2024 09:43 MORRIS RICH
--- OUTSIDE RECORDS SUMMARY | 2024-09-06 05:40 | XMS_ITS | Encounter Summary ---
Author Name [facility] [place] [facility] [place] [facility] [place] Address [address] [place] [address] Care Team Providers Care Applicator Sprayer Name Role Phone JUAN CARLOS BRENNAN Primary [...] MEDICARE ADVANTAGE MCR (WNR) Aug 30, 2022 [id number] GERDA ARAGON PATIENT HUMANA MCR (WNR) MEDICARE ADVANTAGE MCR (WNR) Aug 30, 2022 [id number] GERDA ARAGON PATIENT MEDICARE (WNR) MEDICARE (M) PART A Jun 30, 2017 PART A [id number] GERDA ARAGON PATIENT MEDICARE (WNR) MEDICARE (M) PART B Jun 30, 2017 PART B [id number] GERDA ARAGON PATIENT MEDICARE (WNR) MEDICARE (M) PART A Jun 30, 2017 PART A [id number] GERDA ARAGON PATIENT MEDICARE (WNR) MEDICARE (M) PART B Jun 30, 2017 PART B [id number] GERDA ARAGON PATIENT WELLCARE MCR (WNR) MEDICARE ADVANTAGE [facility] (WNR) Sep 30, 2023 [id number] GERDA ARAGON PATIENT Selected Encounter This section includes the information on record at [place] for the Encounter. 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 Date/Time Primary/Secondary Diagnosis Diagnosis Name Provider Source Sep 06, 2024 10:17 AM PRIMARY Segmental and somatic dysfunction of cervical region [facility] Sep 06, 2024 10:17 AM SECONDARY Cervicalgia M[facility] RICH [place] Sep 06, 2024 10:17 AM SECONDARY Oth intvrt disc degen, lumbosacr rgn w discog bck pain only MOR[facility] RICH [facility] Sep 06, 2024 10:17 AM SECONDARY Pain in thoracic spine [facility] Sep 06, 2024 10:17 AM SECONDARY Segmental and somatic dysfunction of lumbar region [facility] Sep 06, 2024 10:17 AM SECONDARY Segmental and somatic dysfunction of pelvic region [facility] Sep 06, 2024 10:17 AM SECONDARY Segmental and somatic dysfunction of [...] The data comes from all [place] treatment [facility]. Appointment Date/Time Appointment Type Appointme nt Facility Name Sep 13, 2024 09:40 AM AMBULATORY - MEDICINE [facility] Oct 02, 2024 11:00 AM AM[facility]ULATORY - [facility]IC[facility] Oct 04, 2024 09:40 AM AMBULATORY - MEDICINE [facility] Oct 31, 2024 02:00 PM AMBULATORY - MEDICINE [facility] Nov 01, 2024 08:30 AM AMBULATORY - MEDICINE [facility] Nov 01, 2024 09:40 AM AMBULATORY - MEDICINE [facility] Nov 03, 2024 11:00 AM AMBULATORY - [facility] Nov 07, 2024 08:30 AM AMBULATORY - MEDICINE [facility] Nov 07, 2024 08:32 AM AMBULATORY - [facility]IC[facility] Nov 07, 2024 10:40 AM AMBULATORY - MEDICINE [facility] Nov 10, 2024 02:00 PM AMBULATORY - MEDICINE [facility] Nov 13, 2024 02:30 PM AMBULATORY - [facility]IC[facility] Nov 14, 2024 10:40 AM AMBULATORY - MEDICINE [facility] Nov 17, 2024 11:00 AM AMBULATORY - [facility]IC[facility] [facility] Nov 23, 2024 01:45 PM AMBULATORY - [facility] Nov 29, 2024 09:40 AM AMBULATORY - MEDICINE [facility] Dec 01, 2024 10:30 AM AMBULATORY - MEDICINE [facility] Dec 07, 2024 02:00 PM AMBULATORY - MEDICINE [facility] Dec 07, 2024 02:01 PM AMBULATORY - [facility]IC[facility] [facility] Dec 13, 2024 09:40 AM AMBULATORY - MEDICINE [facility] Active, Pending, and Scheduled Orders This section includes a listing of several types of active, pending, and scheduled orders, including clinic medications orders, diagnostic test orders, procedure orders and consult orders; where the start date of the order is 45 days before the date of the Encounter or 45 days after the date of theEncounter. The data comes from all [facility]. Test Date/Time Test Type Test Details Facility Name Aug 31, 2024 11:10 PM Consult Order COMMUNITY CARE-DERMATOLOGY [id number] Cons Supervisor Diagnostic's Choice [facility] Vital Signs: All taken on the encounter date This section contains inpatient and outpatient Vital Signs collected on the date of the Encounter. Date/Time Temperature Pulse Blood Pressure Respiratory Rate SP02 Pain Height Weight Body Mass Index Source Sep 06, 2024 10:18 AM 99.1 73 118/81 [facility] Social History: Smoking Status (Most [...] Facil ity January 21, 2024 10:00 AM [place]-TOBACCO FORMER USER [facility] Tobacco Use History This section includes a history of the smoking, or tobacco-related health factors, that were collected on or before the date of the Encounter. The data comes from the [place] facility where the Encounter took place. Date/Time Smoking Status/Tobacco Use Comment F acility January 21, 2024 10:00 AM [place]-TOBACCO QUIT 5 TO < 15 YRS [facility] January 27, 2023 12:31 PM [place]-TOBACCO FORMER USER [facility] January 27, 2023 12:31 PM [place]-TOBACCO QUIT 15 YRS OR MORE [facility] Advance Directives: All historical and current Section Date Range: From patient's date of to the date document was created. This section includes ALL of a patient's completed or amended [place] Advance and Rescinded Directives. The entries below indicate that a directive exists for the patient, but an actual copy is not included with this document. The data comes from all [place] facilities. Date Advance Directives Provider Source May 14, 2022 ADVANCE DIRECTIVE BERTHA NAZARIO [facility] Feb 05, 2017 ADVANCE DIRECTIVE DISCUSSION PEG SORENSEN [facility] Radiology Reports: +/- 30 days of [...] FOOT,LEFT 3 VIEWS OR MORE: GERDA ARAGON [id number] -1950 F Exm Date: AUG 28, 2024@12:15 Req Phys: JUAN CARLOS BRENNAN Pat Loc: [facility] (Req'g Img Loc: PB-XRAY [place] Service: [place] [address] (Case [id number] COMPLETE) FOOT,LEFT 3 VIEWS OR MORE (RAD Detailed) CPT:68110 Proc Modifiers : LEFT Reason for Study: left pain and bruising Clinical History: Report Status: Verified Date Reported: AUG 28, 2024 Date Verified: AUG 28, 2024 Canopy Stringer E-Sig: Report: Left foot 3 views. No [...] fracture Primary Interpreting Staff: THAD ZHANG, RADIOLOGIST (Canopy Stringer, no e-sig) /THAD Rogers [facility] Aug 28, 2024 12:11 PM CHEST X-RAY, 2 VIE WS: GERDA ARAGON [id number] -1950 F Exm Date: AUG 28, 2024@12:11 Req Phys: JUAN CARLOS BRENNAN Pat Loc: [facility] (Req'g Img Loc: [facility] [place] Service: [place] [address] (Case [id number] COMPLETE) CHEST X-RAY, 2 VIEWS (RAD Detailed) CPT:96609 Reason for Study: Cough x4 days Clinical History: Report Status: Verified Date Reported: AUG 28, 2024 Date Verified: AUG 28, 2024 Canopy Stringer E-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 Lungs hyperinflated with emphysematous changes present. Mild apical pleural thickening. No infiltrates or effusions. Heart normal size. Plaque thoracic aorta. Degenerative changes thoracic spine. Scoliosis. Findings similar previous study. Impression: COPD with apical pleural thickening similar to previous study dated 03/27/2024 Primary Interpreting Staff: THAD ZHANG, RADIOLOGIST (Canopy Stringer, no e-sig) /THAD Rogers [facility] Encounter Notes: All associated encounter notes This section contains the clinical notes associated to the Encounter. Date/Time Encounter Note(s) Provider Source Sep 06, 2024 10:07 AM CHIROPRACTIC NOTE: LOCAL TITLE: CHIROPRACTIC FOLLOW UP NOTE PB STANDARD TITLE: CHIROPRACTIC NOTE DATE OF NOTE: SEP 06, 2024@10:07 ENTRY DATE: SEP 06, 2024@10:07:43 AUTHOR: MORRIS RICH COSIGNER: URGENCY: STATUS: COMPLETED CHIROPRACTIC FOLLOW-UP VISIT Patient's language preference for health information: Bahamian Other Communication Methods Needed: SUBJECTIVE: The [place] is a 74 year old FEMALE being seen in the Chiropractic clinic for follow-up visit. The states she aggravated her lower back over the past weekend. She suspects the issue developed after working on her house project on Wednesday and coughing due to a cold. Today, the rates her pain level as [...] restricted in all planes of motion. The [place] experience pain with the restricted AROM. LUMBAR/THORACIC [...] and back pain, we will treat [facility] [place] once every two weeks for six treatments. [...] exercise program and to commit to a emt intermediate exercise plan. /sarabjit/ SEN [facility] Signed: 09/06/2024 10:17 MORRIS RICH
--- OUTSIDE RECORDS SUMMARY | 2024-09-06 06:00 | XMS_ITS | Encounter Summary ---
Author Name [facility] [place] Address [address] [place] [address] Care Team Providers Care Floor Finisher Helper Name Role Phone JUAN CARLOS BRENNAN Primary [...] Erwin STEPHA MCR (WNR) MEDICARE ADVANTAGE MCR ([facility]) Aug 30, 2022 [id number] GERDA ARAGON PATIENT HUMANA MCR (WNR) MEDICARE ADVANTAGE MCR (WNR) Aug 30, 2022 [id number] [phone] GERDA ARAGON PATIENT MEDICARE (WNR) MEDICARE (M) PART A Jun 30, 2017 PART A [id number] GERDA ARAGON PATIENT MEDICARE (WNR) MEDICARE (M) PART B Jun 30, 2017 PART B [id number] GERAD ARAGON PATIENT MEDICARE (WNR) MEDICARE (M) PART A Jun 30, 2017 PART A [id number] GERDA ARAGON PATIENT MEDICARE (WNR) MEDICARE (M) PART B Jun 30, 2017 PART B [id number] GERDA ARAGON PATIENT WELLCARE MCR (WNR) MEDICARE ADVANTAGE [facility] (WNR) Sep 30, 2023 [id number] GERDA ARAGON PATIENT Selected Encounter This section includes the information on record at [place] for the Encounter. Date/Time Encounter Type Encounter Description Reason Provider Source Sep 06, 2024 11:00 AM OFF/OP EST DECEMBER X REQ PHY/QHP PRIMARY CARE/MEDICINE ICD-10-CM R05.1 Acute cough MERA PRECIADO [facility] Encounter Template Text not used by [place] Assessments - Encounter Diagnoses This section includes the primary and secondary diagnoses documented for the Encounter. Date/Time Primary/Secondary Diagnosis Diagnosis Name Provider Source Sep 06, 2024 04:20 PM PRIMARY Acute cough MERA PRECIADO [facility] Plan of Treatment: Future Appointments (+ 6 months) and Future Tests (+/- 45 days) The Plan of Treatment section includes future care activities for the patient from all [place] [facility]. This section includes future appointments and future orders which are active, pending or scheduled. Future Appointments This section includes appointments that were scheduled to occur 6 months from the date of the Encounter, up to a maximum of 20 appointments. The data comes from all [place] treatment facilities. Appointment Date/Time Appointment Type Appointme nt Facility Name Sep 13, 2024 09:40 AM AMBULATORY [place] [facility] Oct 02, 2024 11:00 AM [facility] [place] [facility] Oct 04, 2024 09:40 AM AMBULATORY - MEDICINE [facility] Oct 31, 2024 02:00 PM [facility] [place] [facility] Nov 01, 2024 08:30 AM [facility] [place] [facility] [place] [facility] Nov 01, 2024 09:40 AM [facility] [place] [facility] Nov 03, 2024 11:00 AM [facility]ORY - [facility] [place] [facility] Nov 07, 2024 08:30 AM AMBULATORY - MEDICINE [facility] Nov 07, 2024 08:32 AM [facility] [place] [facility] Nov 07, 2024 10:40 AM [facility] [place] [facility] Nov 10, 2024 02:00 PM [facility] [place] [facility] Nov 13, 2024 02:30 PM [facility] [place] [facility] Nov 14, 2024 10:40 AM [facility]ORY - MEDICINE [facility] Nov 17, 2024 11:00 AM [facility] - [facility] [place] [facility] Nov 23, 2024 01:45 PM [facility] [place] [facility] Nov 29, 2024 09:40 AM [facility] [place] [facility] Dec 01, 2024 10:30 AM AMBULATORY - MEDICINE [facility] Dec 07, 2024 02:00 PM AMBULATORY - MEDICINE [facility] Dec 07, 2024 02:01 PM [facility] - [facility] [place] [facility] Dec 13, 2024 09:40 AM AM[facility]ULATORY - MEDICINE [facility] Active, Pending, and Scheduled Orders This section includes a listing of several types of active, pending, and scheduled orders, including clinic medications orders, diagnostic test orders, procedure orders and consult orders; where the start date of the order is 45 days before the date of the Encounter or 45 days after the date of theEncounter. The data comes from all [place] treatment facilities. Test Date/Time Test Type Test Details Facility Name Aug 31, 2024 11:10 PM Consult Order COMMUNITY CARE-DERMATOLOGY 657A4 Cons English Lecturer's Choice [facility] Vital Signs: All taken on the encounter date This section contains inpatient and outpatient Vital Signs collected on the date of the Encounter. Date/Time Temperature Pulse Blood Pressure Respiratory Rate SP02 Pain Height Weight Body Mass Index Source Sep 06, 2024 10:18 AM 99.1 73 118/[address] [facility] Social History: Smoking Status (Most current) and Tobacco Use (All prior to encounter date) This section includes the most current, and the historical, smoking and tobacco- related health factors from the [place] facility where the Encounter took place. Current Smoking Status This section includes the most current smoking, or tobacco-related health factor, from the [place] facility where the Encounter took place. Date/Time Current Smoking Status Comment Facil ity January 21, 2024 10:00 AM [place]-TOBACCO FORMER USER [facility] Tobacco Use History This section includes a history of the smoking, or tobacco-related health factors, that were collected on or before the date of the Encounter. The data comes from the [place] facility where the Encounter took place. Date/Time Smoking Status/Tobacco Use Comment F acility January 21, 2024 10:00 AM VA-TOBACCO QUIT 5 TO < 15 YRS [facility] January 27, 2023 12:31 PM VA-TOBACCO FORMER USER [place] [facility] January 27, 2023 12:31 PM VA-TOBACCO QUIT [address] [facility] Advance Directives: All historical and current Section Date Range: From patient's date of to the date document was created. This section includes ALL of a patient's completed or amended [place] Advance and Rescinded Directives. The entries below indicate that a directive exists for the patient, but an actual copy is not included with this document. The data comes from all [facility]. Date Advance Directives Provider Source May 14, 2022 ADVANCE DIRECTIVE BERTHA NAZARIO [facility] Feb 05, 2017 ADVANCE DIRECTIVE DISCUSSION PEG SORENSEN [facility] Radiology Reports: +/- 30 days of [...] the Encounter. The data comes from all [place] treatment facilities. Date/Time Radiology Report Provider Source Aug 28, 2024 12:15 PM FOOT,LEFT 3 VIEWS OR MORE: GERDA ARAGON [id number] -1950 F Exm Date: AUG 28, 2024@12:15 Req Phys: JUAN CARLOS BRENNAN Loc: PB-MICHAEL PACT [facility] (Req'g Img Loc: PB-XRAY [place] Service: [place] [address] (Case [id number] COMPLETE) FOOT,LEFT 3 VIEWS OR MORE (RAD Detailed) CPT:79552 Proc Modifiers : LEFT Reason for Study: left pain and bruising Clinical History: Report Status: Verified Date Reported: AUG 28, 2024 Date Verified: AUG 28, 2024 Shock Absorption Floor Layer E-Sig: Report: Left foot 3 views. No [...] out occult fracture Primary Interpreting Staff: THAD ZHANG RADIOLOGIST (Shock Absorption Floor Layer, no e-sig) /THAD Rogers [facility] Aug 28, 2024 12:11 PM CHEST X-RAY, 2 VIE WS: GERDA ARAGON [id number] -1950 F Exm Date: AUG 28, 2024@12:11 Req Phys: JUAN CARLOS BRENNAN Loc: PB-MICHAEL PACT [facility] (Req'g Img Loc: PB-XRAY [place] Service: [place] [address] (Case [id number] COMPLETE) CHEST X-RAY, 2 VIEWS (RAD Detailed) CPT:69431 Reason for Study: Cough x4 days Clinical History: Report Status: Verified Date Reported: AUG 28, 2024 Date Verified: AUG 28, 2024 Shock Absorption Floor Layer E-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 Lungs hyperinflated with emphysematous changes present. Mild apical pleural thickening. No infiltrates or effusions. Heart normal size. Plaque thoracic aorta. Degenerative changes thoracic spine. Scoliosis. Findings similar previous study. Impression: COPD with apical pleural thickening similar to previous study dated 03/27/2024 Primary Interpreting Staff: JOHN LOPEZ (Shock Absorption Floor Layer, no e-sig) /THAD Rogers [facility] Encounter Notes: All associated encounter notes This section contains the clinical notes associated to the Encounter. Date/Time Encounter Note(s) Provider Source Oct 11, 2024 08:15 AM NURSING PROGRESS N OTE: LOCAL TITLE: NURSING NOTE PB STANDARD TITLE: NURSING PROGRESS NOTE DATE OF NOTE: OCT 11, 2024@08:15 ENTRY DATE: OCT 11, 2024@11:59:57 AUTHOR: ROBIN PRECIADO EXP COSIGNER: URGENCY: STATUS: COMPLETED NURSING NOTE PB Has ADDENDA Reyes contacted clinic and advised that she is fighting a chest cold. stated that she started feeling sick last with a runny nose, cough, chest congestion and low grade fever. Bagley stated that the mucous that she is coughing up is thick with a light yellow color to it. stated that she is allergic to albuterol but use to use zopenex and advair inhaler and has not used them in sometime and was wanting to see if she could get an antibiotic and get started back on inhalers. She requested to use [facility]. stated that she is currently using mucinex over the counter for her cough. I advised that I will alert the PCP of her request. /sarabjit/ Robin Preciado RN [place] BARBRA, SHYANNE [facility] Signed: 10/11/2024 12:12 Receipt Acknowledged By: 10/11/2024 14:47 /sarabjit/ Juan [facility] 10/11/2024 ADDENDUM STATUS: COMPLETED Levaquin 500mg one po daily for 5 days #5 0 refills and medrol dose pack 4mg as directed one pack 0 refills called to [facility] as directed. /sarabjit/ Juan Carlos Brennan [facility] Signed: 10/11/2024 14:[address] [facility] Sep 06, 2024 04:14 PM NURSING PROGRESS N OTE: LOCAL TITLE: NURSING NOTE STANDARD TITLE: NURSING PROGRESS NOTE DATE OF NOTE: SEP 06, 2024@16:14 ENTRY DATE: SEP 06, 2024@16:15 AUTHOR: ROBIN PRECIADO EXP COSIGNER: URGENCY: STATUS: COMPLETED This is a 74 year old FEMALE with known Allergies as noted: ALBUTEROL, CODEINE, LISINOPRIL C/C: On-going cough S: Bagley stated that she is still have a terrible cough that is not improving. stated that she has completed Medrol dose ortiz and almost finished doxycyline and the cough has not went away. Bagley stated that she has not been running a high fever maybe only a low grade fever. stated that she has been cough so much that it chokes her. stated that she is coughing up thick mucous. On the following Active Medications: Active Outpatient Medications (including Supplies): Active Outpatient Medications Status 1) ACETAMINOPHEN 500MG TAB TAKE ONE TABLET BY MOUTH THREE TIMES ACTIVE A DAY NEEDED CAUTION: DO NOT EXCEED 4000MG PER DAY ACETAMINOPHEN (APAP) FROM ALL MEDS. Indication: FOR PAIN 2) AMLODIPINE BESYLATE 2.5MG TAB TAKE ONE TABLET BY MOUTH ONCE ACTIVE A DAY Indication: FOR HIGH BLOOD PRESSURE 3) INDOMETHACIN 25MG CAP TAKE ONE CAPSULE BY MOUTH TWICE A DAY ACTIVE (TAKE WITH FOOD) Indication: FOR OSTEOARTHRITIS 4) LIDOCAINE 5% PATCH APPLY 1 PATCH TO SKIN SITE ONCE A DAY ACTIVE APPLY PATCH AND PRESS FIRMLY FOR 10-15 SECONDS. KEEP ON FOR 12 HOURS THEN REMOVE PATCH FOR 12 HOURS. Indication: FOR LOCAL ANESTHESIA 5) MONTELUKAST NA 10MG TAB TAKE ONE TABLET BY MOUTH EVERY ACTIVE EVENING Indication: FOR ALLERGIC RHINITIS 6) ONDANSETRON HCL 8MG TAB TAKE ONE-HALF TABLET BY MOUTH ONCE A ACTIVE DAY NEEDED Indication: FOR NAUSEA/VOMITING 7) POISE PAD,MODERATE ABSORB EXTRA COVERAGE USE/APPLY PAD TO ACTIVE (S) AFFECTED AREA(S) TWICE A DAY - FEMALES ONLY Indication: FOR INCONTINENCE 8) ROPINIROLE HCL 1MG TAB TAKE ONE TABLET BY MOUTH TWICE DAILY ACTIVE NEEDED Indication: FOR RESTLESS LEG SYNDROME 9) VENLAFAXINE HCL 75MG 24HR SA CAP TAKE ONE CAPSULE BY MOUTH ACTIVE ONCE A DAY WITH FOOD. DO NOT ABRUPTLY DISCONTINUE MEDICATION. Indication: FOR DEPRESSION Active Non-VA Medications Status 1) Non-VA CEPHALEXIN 500MG CAP 500MG BY MOUTH EVERY 6 HOURS ACTIVE Indication: FOR URINARY TRACT INFECTION 10 Total Medications O: ambulated into the clinic without assistance. Steady gait. Alert and oriented x4. Unlabored breathing. Lungs sounds clear bilaterally. A/P: Reviewed with Provider. Provider advised that she will give the Bagley a handwritten script for Levaquin and for the to stop Doxycycline. Bagley advised if symptoms do not improve to report back to the clinic. Bagley voiced understanding. Bagley escorted to the lobby in stable condition. RTC: as needed /sarabjit/ RAJNI Suárez, SHYANNE [facility] Signed: 09/06/2024 16:19 Receipt Acknowledged By: 09/06/2024 20:06 /sarabjit/ KVNG Cox-BARBRA Clark [facility]ANNIE REN[facility] [place] [facility]
--- OUTSIDE RECORDS SUMMARY | 2024-09-13 04:40 | XMS_ITS | Encounter Summary ---
Author Name [place] Address [address] [place] [address] Care Team Providers Care Continuing Education Instructor Name Role Phone JUAN CARLOS BRENNAN [...] MEDICARE ADVANTAGE MCR (WNR) Aug 30, 2022 [id number] GERDA ARAGON PATIENT HUMANA MCR (WNR) MEDICARE ADVANTAGE MCR (WNR) Aug 30, 2022 [id number] [phone] GERDA ARAGON PATIENT MEDICARE (WNR) MEDICARE (M) PART A Jun 30, 2017 PART A [id number] GERDA ARAGON PATIENT MEDICARE (WNR) MEDICARE (M) PART B Jun 30, 2017 PART B [id number] GERDA ARAGON PATIENT MEDICARE (WNR) MEDICARE (M) PART A Jun 30, 2017 PART A [id number] GERDA ARAGON PATIENT MEDICARE (WNR) MEDICARE (M) PART B Jun 30, 2017 PART B [id number] GERDA ARAGON PATIENT WELLCARE MCR (WNR) MEDICARE ADVANTAGE [facility] (WNR) Sep 30, 2023 [id number] GERDA ARAGON PATIENT Selected Encounter This section includes the information on record at [place] for the Encounter. 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 Date/Time Primary/Secondary Diagnosis Diagnosis Name Provider Source Sep 13, 2024 09:56 AM PRIMARY Segmental and somatic dysfunction of cervical region [facility] R[facility] [place] [facility] Sep 13, 2024 09:56 AM SECONDARY Cervicalgia M[facility]RIS RICH [place] [facility] Sep 13, 2024 09:56 AM SECONDARY Oth intvrt disc degen, lumbosacr rgn w discog bck pain only M[facility]RIS RICH [place] [facility] Sep 13, 2024 09:56 AM SECONDARY Pain in thoracic spine M[facility]RIS RICH [facility] [facility] Sep 13, 2024 09:56 AM SECONDARY Segmental and somatic dysfunction of lumbar region M[facility]RIS RICH [facility] Sep 13, 2024 09:56 AM SECONDARY Segmental and somatic dysfunction of pelvic region [facility]RIS RICH [facility] Sep 13, 2024 09:56 AM SECONDARY Segmental and somatic dysfunction of [...] 20 appointments. The data comes from all [place] treatment [facility]. Appointment Date/Time Appointment Type Appointme nt Facility Name Oct 02, 2024 11:00 AM [facility] [place] [facility] Oct 04, 2024 09:40 AM AMBULATORY - MEDICINE [facility] Oct 31, 2024 02:00 PM AMBULATORY - MEDICINE [facility] Nov 01, 2024 08:30 AM AMBULATORY - MEDICINE [facility] Nov 01, 2024 09:40 AM AMBULATORY - MEDICINE [facility] Nov 03, 2024 11:00 AM AM[facility]ORY [facility] [place] [facility] Nov 07, 2024 08:30 AM AMBULATORY - MEDICINE [facility] Nov 07, 2024 08:32 AM [facility] [place] [facility] Nov 07, 2024 10:40 AM AMBULATORY - MEDICINE [facility] Nov 10, 2024 02:00 PM AMBULATORY - MEDICINE [facility] Nov 13, 2024 02:30 PM [facility] [place] [facility] Nov 14, 2024 10:40 AM AMBULATORY - MEDICINE [facility] Nov 17, 2024 11:00 AM AMBULATORY [facility] [place] [facility] Nov 23, 2024 01:45 PM AMBULATORY [facility] [place] [facility] Nov 29, 2024 09:40 AM AMBULATORY - MEDICINE [facility] Dec 01, 2024 10:30 AM AMBULATORY - MEDICINE [facility] Dec 07, 2024 02:00 PM AMBULATORY - MEDICINE [facility] Dec 07, 2024 02:01 PM AMBULATORY - [place] [facility] Dec 13, 2024 09:40 AM AMBULATORY - MEDICINE [facility] Dec 13, 2024 10:30 AM AMBULATORY - MEDICINE [facility] Active, Pending, and Scheduled Orders This section includes a listing of several types of active, pending, and scheduled orders, including clinic medications orders, diagnostic test orders, procedure orders and consult orders; where the start date of the order is 45 days before the date of the Encounter or 45 days after the date of theEncounter. The data comes from all [facility]. Test Date/Time Test Type Test Details Facility Name Aug 31, 2024 11:10 PM Consult Order COMMUNITY CARE-DERMATOLOGY 657A4 Cons Referral Nurse's Choice [place] [facility] Vital Signs: All taken on the encounter date This section contains inpatient and outpatient Vital Signs collected on the date of the Encounter. Date/Time Temperature Pulse Blood Pressure Respiratory Rate SP02 Pain Height Weight Body Mass Index Source Sep 13, 2024 09:40 AM 98.3 74 [facility] Social History: Smoking Status (Most current) and Tobacco Use (All prior to encounter date) This section includes the most current, and the historical, smoking and tobacco- related health factors from the [place] facility where the Encounter took place. Current Smoking Status This section includes the most current smoking, or tobacco-related health factor, from the [place] facility where the Encounter took place. Date/Time Current Smoking Status Comment Facil ity January 21, 2024 10:00 AM [place]-TOBACCO FORMER USER [facility] Tobacco Use History This section includes a history of the smoking, or tobacco-related health factors, that were collected on or before the date of the Encounter. The data comes from the [place] facility where the Encounter took place. Date/Time Smoking Status/Tobacco Use Comment F acility January 21, 2024 10:00 AM [place]-TOBACCO QUIT 5 TO < 15 YRS [facility] January 27, 2023 12:31 PM [place]-TOBACCO FORMER USER [facility] January 27, 2023 12:31 PM [place]-TO[place]AC[place] QUIT 15 YRS OR MORE [facility] Advance Directives: All historical and current Section Date Range: From patient's date of to the date document was created. This section includes ALL of a patient's completed or amended [place] Advance and Rescinded Directives. The entries below indicate that a directive exists for the patient, but an actual copy is not included with this document. The data comes from all [place] facilities. Date Advance Directives Provider Source May 14, 2022 ADVANCE DIRECTIVE BERTHA NAZARIO [facility] Feb 05, 2017 ADVANCE DIRECTIVE DISCUSSION PEG SORENSEN [facility] Radiology Reports: +/- 30 days [...] the Encounter. The data comes from all [place] treatment facilities. Date/Time Radiology Report Provider Source Aug 28, 2024 12:15 PM FOOT,LEFT 3 VIEWS OR MORE: GERDA ARAGON [id number] -1950 F Exm Date: AUG 28, 2024@12:15 Req Phys: JUAN CARLOS BRENNAN Pat Loc: PB-MICHAEL PACT [facility] (Req'g Img Loc: PB-XRAY [place] Service: [place] [address] (Case [id number] COMPLETE) FOOT,LEFT 3 VIEWS OR MORE (RAD Detailed) CPT:05230 Proc Modifiers : LEFT Reason for Study: left pain and bruising Clinical History: Report Status: Verified Date Reported: AUG 28, 2024 Date Verified: AUG 28, 2024 Body Technician E-Sig: Report: Left foot 3 views. No [...] fracture Primary Interpreting Staff: THAD ZHANG, RADIOLOGIST (Body Technician, no e-sig) /THAD Saravia [facility] Aug 28, 2024 12:11 PM CHEST X-RAY, 2 VIE WS: GERDA ARAGON [id number] -1950 F Exm Date: AUG 28, 2024@12:11 Req Phys: JUAN CARLOS BRENNAN Loc: PB-MICHAEL PACT [facility] (Req'g Img Loc: PB-XRAY [place] Service: [place] [address] (Case 650 COMPLETE) CHEST X-RAY, 2 VIEWS (RAD Detailed) CPT:43594 Reason for Study: Cough x4 days Clinical History: Report Status: Verified Date Reported: AUG 28, 2024 Date Verified: AUG 28, 2024 Body Technician E-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 Lungs hyperinflated with emphysematous changes present. Mild apical pleural thickening. No infiltrates or effusions. Heart normal size. Plaque thoracic aorta. Degenerative changes thoracic spine. Scoliosis. Findings similar previous study. Impression: COPD with apical pleural thickening similar to previous study dated 03/27/2024 Primary Interpreting Staff: THAD ZHANG, RADIOLOGIST (Body Technician, no e-sig) /THAD Rogers [facility] Encounter Notes: All associated encounter notes This section contains the clinical notes associated to the Encounter. Date/Time Encounter Note(s) Provider Source Sep 13, 2024 09:49 AM CHIROPRACTIC NOTE: LOCAL TITLE: CHIROPRACTIC FOLLOW UP NOTE PB STANDARD TITLE: CHIROPRACTIC NOTE DATE OF NOTE: SEP 13, 2024@09:49 ENTRY DATE: SEP 13, 2024@09:49:41 AUTHOR: MORRIS RICH COSIGNER: URGENCY: STATUS: COMPLETED CHIROPRACTIC FOLLOW-UP VISIT Patient's language preference for health information: Brazilian Other Communication Methods Needed: SUBJECTIVE: The is a 74 year old FEMALE being seen in the Chiropractic clinic for follow-up visit. The [place] describes her back as feeling fairly good, better than previously. Today, the rates her pain level as [...] the restricted AROM. LUMBAR/THORACIC SPINE: MOVEMENT/POSTURE: The [place] ambulates without issue. SEGMENTAL DYSFUNCTION: Joint dysfunction [...] exercise program and to commit to a fci exercise plan. /sarabjit/ SEN [facility] Signed: 09/13/2024 09:55 MORRIS RICH
--- OUTSIDE RECORDS SUMMARY | 2024-10-04 04:40 | XMS_ITS | Encounter Summary ---
Author Name [facility] [place] [facility] [facility] [place] Address [address] [place] [address] Care Team Providers Care Case Worker Name Role Phone JUAN CARLOS BRENNAN Primary [...] MEDICARE ADVANTAGE MCR (WNR) Aug 30, 2022 [id number] GERDA ARAGON PATIENT [employer] MCR (WNR) MEDICARE ADVANTAGE MCR (WNR) Aug 30, 2022 [id number] GERDA ARAGON PATIENT MEDICARE (WNR) MEDICARE (M) PART A Jun 30, 2017 PART A [id number] GERDA ARAGON PATIENT MEDICARE (WNR) MEDICARE (M) PART B Jun 30, 2017 PART B [id number] [phone] GERDA ARAGON PATIENT MEDICARE (WNR) MEDICARE (M) PART A Jun 30, 2017 PART A [id number] GERDA ARAGON PATIENT MEDICARE (WNR) MEDICARE (M) PART B Jun 30, 2017 PART B [id number] GERDA ARAGON PATIENT [employer] MCR (WNR) MEDICARE ADVANTAGE [facility] (WNR) Sep 30, 2023 [id number] [phone] GERDA ARAGON PATIENT Selected Encounter This section includes the information on record at [place] for the Encounter. Date/Time Encounter Type Encounter Description Reason Provider Source Oct 04, 2024 09:40 AM CHIROPRACT MAN 3-4 [employer] IN[employer]CTOR ICD-10-CM M99.01 Segmental and somatic dysfunction of cervical region MORRIS RICH Encounter Template Text not used by [facility] Assessments - Encounter Diagnoses This section includes the primary and secondary diagnoses documented for the Encounter. Date/Time Primary/Secondary Diagnosis Diagnosis Name Provider Source Oct 04, 2024 09:56 AM PRIMARY Segmental and somatic dysfunction of cervical region [facility] Oct 04, 2024 09:56 AM SECONDARY Cervicalgia [facility] R[facility] Oct 04, 2024 09:56 AM SECONDARY Oth intvrt disc degen, lumbosacr w discog bck & lw extrm pn [facility] RICH [facility] Oct 04, 2024 09:56 AM SECONDARY Pain in thoracic spine MORRIS RICH [facility] Oct 04, 2024 09:56 AM SECONDARY Segmental and somatic dysfunction of lumbar region [facility] R[facility] Oct 04, 2024 09:56 AM SECONDARY Segmental and somatic dysfunction of pelvic region [facility]RIS RICH [facility] Oct 04, 2024 09:56 AM SECONDARY Segmental and somatic [...] The data comes from all [place] treatment [facility]. Appointment Date/Time Appointment Type Appointme nt Facility Name Oct 31, 2024 02:00 PM AMBULATORY - MEDICINE [facility] Nov 01, 2024 08:30 AM AMBULATORY - MEDICINE [facility] Nov 01, 2024 09:40 AM AMBULATORY - MEDICINE [facility] Nov 03, 2024 11:00 AM AMBULATORY - MEDICINE [place] [facility] Nov 07, 2024 08:30 AM AMBULATORY - MEDICINE [facility] Nov 07, 2024 08:32 AM [facility] [place] [facility] Nov 07, 2024 10:40 AM AMBULATORY - MEDICINE [facility] Nov 10, 2024 02:00 PM AMBULATORY - MEDICINE [facility] Nov 13, 2024 02:30 PM AMBULATORY - MEDIC[facility] [place] [facility] Nov 14, 2024 10:40 AM AMBULATORY - MEDICINE [facility] Nov 17, 2024 11:00 AM AMBULATORY - MEDIC[facility] [place] [facility] Nov 23, 2024 01:45 PM AMBULATORY - MEDIC[facility] [place] [facility] Nov 29, 2024 09:40 AM AMBULATORY - MEDICINE [facility] Dec 01, 2024 10:30 AM AMBULATORY - MEDICINE [facility] Dec 07, 2024 02:00 PM AMBULATORY - MEDICINE [facility] Dec 07, 2024 02:01 PM AMBULATORY - MEDIC[facility] [place] [facility] Dec 13, 2024 09:40 AM AMBULATORY - MEDICINE [facility] Dec 13, 2024 10:30 AM AMBULATORY - MEDICINE [facility] Dec 25, 2024 03:30 PM AMBULATORY - MEDICINE [facility] Dec 27, 2024 09:40 AM AMBULATORY - MEDICINE [facility] Active, Pending, and Scheduled Orders This section includes a listing of several types of active, pending, and scheduled orders, including clinic medications orders, diagnostic test orders, procedure orders and consult orders; where the start date of the order is 45 days before the date of the Encounter or 45 days after the date of theEncounter. The data comes from all [facility]. Test Date/Time Test Type Test Details Facility Name Aug 31, 2024 11:10 PM Consult Order [facility]DERMATOLOGY [id number] Cons Superannuation Funds Manager's Choice [facility] Vital Signs: All taken on the encounter date This section contains inpatient and outpatient Vital Signs collected on the date of the Encounter. Date/Time Temperature Pulse Blood Pressure Respiratory Rate SP02 Pain Height Weight Body Mass Index Source Oct 04, 2024 09:40 AM 98 66 158/104 [facility] Social History: Smoking Status (Most current) [...] 21, 2024 10:00 AM [place] FORMER US[place] [facility] Tobacco Use History This section includes a history of the smoking, or tobacco-related health factors, that were collected on or before the date of the Encounter. The data comes from the [place] facility where the Encounter took place. Date/Time Smoking Status/Tobacco Use Comment F acility January 21, 2024 10:00 AM [place]-TOBAC[place] QUIT 5 TO < 15 YRS [facility] January 27, 2023 12:31 PM [place]BAC[place] FORMER USER [facility] January 27, 2023 12:31 PM [place]AC[place] QUIT 15 YRS OR MORE [facility] Advance Directives: All historical and [...] the Encounter. The data comes from all [place] treatment facilities. 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 FINDINGS: There is no acute fracture or dislocation. There is mild degenerative change involving the left shoulder. There is scoliosis and degenerative change involving the thoracic spine. There is evidence of old injury involving the left humeral shaft. Impression: 1. No evidence of acute osseous injury involving the left shoulder. 2. Mild degenerative change. 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 FINDINGS: There is no acute fracture or dislocation. There is scoliosis convex to the left. There are osseous degenerative changes. There is narrowing of the L1-2 disc space with a vacuum phenomenon in the disc. There is milder narrowing of the L2-3 and L3-4 disc space. There is calcified atherosclerotic change involving the abdominal aorta. Impression: 1. No evidence of acute osseous injury involving the lumbar spine. 2. Scoliosis. 3. Degenerative disc disease with narrowing of the L1-2 disc space with milder narrowing of the L2-3 and L3-4 disc spaces. 4. Osseous degenerative changes. 5. Calcified atherosclerotic change involving the abdominal aorta. Primary Interpreting Staff: Antonio Avila M.D., Radiology (Diesel Inspector, no e-sig) /[facility] Encounter Notes: All associated encounter notes This section contains the clinical notes associated to the Encounter. Date/Time Encounter Note(s) Provider Source Oct 04, 2024 09:43 AM CHIROPRACTIC NOTE: LOCAL TITLE: CHIROPRACTIC FOLLOW UP NOTE PB STANDARD TITLE: CHIROPRACTIC NOTE DATE OF NOTE: OCT 04, 2024@09:43 ENTRY DATE: OCT 04, 2024@09:43:37 AUTHOR: MORRIS RICH COSIGNER: URGENCY: STATUS: COMPLETED CHIROPRACTIC FOLLOW-UP VISIT Patient's language preference for health information: Citizen Of [place] Other Communication Methods Needed: SUBJECTIVE: The Palm is a 74 year old FEMALE being seen in the Chiropractic clinic for follow-up visit. The Palm states her lower back is a constant source of pain, but experienced sharp pain in her left shoulder as she reached into a drawer. Today, the rates her pain level as a 9/10. PAST MEDICAL HISTORY: see problem list SOCIO-ECONOMIC [...] the restricted AROM. LUMBAR/THORACIC SPINE: MOVEMENT/POSTURE: The Palm ambulates without issue. SEGMENTAL DYSFUNCTION: Joint dysfunction [...] exercise plan. /sarabjit/ [facility] Signed: 10/04/2024 09:55 MORRIS RICH
--- OUTSIDE RECORDS SUMMARY | 2024-10-31 09:00 | XMS_ITS | Encounter Summary ---
Author Name [facility] [place] [facility] [place] Address [address] [place] [address] Care Team Providers Care Graphic Design Assistant Name Role Phone JUAN CARLOS BRENNAN Primary [...] MEDICARE ADVANTAGE MCR (WNR) Aug 30, 2022 [id number] [phone] GERDA ARAGON PATIENT [employer] MCR (WNR) MEDICARE ADVANTAGE MCR (WNR) Aug 30, 2022 [id number] GERDA ARAGON PATIENT MEDICARE (WNR) MEDICARE (M) PART A Jun 30, 2017 PART A [id number] [phone] GERDA ARAGON PATIENT MEDICARE (WNR) MEDICARE (M) PART B Jun 30, 2017 PART B [id number] [phone] GERDA ARAGON PATIENT MEDICARE (WNR) MEDICARE (M) PART A Jun 30, 2017 PART A [id number] [phone] GERDA ARAGON PATIENT MEDICARE (WNR) MEDICARE (M) PART B Jun 30, 2017 PART B [id number] [phone] GERDA ARAGON PATIENT [facility] (WNR) MEDICARE ADVANTAGE [facility] (WNR) Sep 30, 2023 [id number] [phone] GERDA ARAGON PATIENT Selected Encounter This section includes the information on record at [place] for the Encounter. Date/Time Encounter Type Encounter Description Reason Provider Source Oct 31, 2024 02:00 PM OFFICE O/P EST MOD 30 MIN PRIMARY CARE/MEDICINE ICD-10-CM M25.512 Pain in left shoulder ANUEL BRENNAN Samara Encounter Template Text not used by [place] Assessments - Encounter Diagnoses This section includes the primary and secondary diagnoses documented for the Encounter. Date/Time Primary/Secondary Diagnosis Diagnosis Name Provider Source Nov 05, 2024 09:18 PM PRIMARY Pain in left shoulder PATRICK BRENNAN [facility] Plan of Treatment: Future Appointments (+ 6 months) and Future Tests (+/- 45 days) The Plan of Treatment section includes future care activities for the patient from all [place] treatmentfaunc healthities. This section includes future appointments and future orders which are active, pending or scheduled. Future Appointments This section includes appointments that were scheduled to occur 6 months from the date of the Encounter, up to a maximum of 20 appointments. The data comes from all [place] treatment facilities. Appointment Date/Time Appointment Type Appointme nt Facility Name Nov 01, 2024 08:30 AM AMBULATORY - MEDICINE [facility] Nov 01, 2024 09:40 AM AMBULATORY - MEDICINE [facility] Nov 03, 2024 11:00 AM AMBULATORY - MEDICINE [place] [facility] Nov 07, 2024 08:30 AM AMBULATORY - MEDICINE [facility] Nov 07, 2024 08:32 AM AMBULATORY - MEDICINE [place] [facility] Nov 07, 2024 10:40 AM AMBULATORY - MEDICINE [facility] Nov 10, 2024 02:00 PM AMBULATORY - MEDICINE [facility] Nov 13, 2024 02:30 PM AMBULATORY - MEDICINE [place] Nov 14, 2024 10:40 AM AMBULATORY - MEDICINE [facility] Nov 17, 2024 11:00 AM [facility] [place] [facility] Nov 23, 2024 01:45 PM [facility]BUL[facility] [place] [facility] Nov 29, 2024 09:40 AM [facility] [place] [facility] Dec 01, 2024 10:30 AM AMBULATORY - MEDICINE [facility] Dec 07, 2024 02:00 PM AMBULATORY - MEDICINE [facility] Dec 07, 2024 02:01 PM [facility] [place] [facility] Dec 13, 2024 09:40 AM AMBULATORY - MEDICINE [facility] Dec 13, 2024 10:30 AM AMBULATORY - MEDICINE [facility] Dec 25, 2024 03:30 PM AMBULATORY - MEDICINE [facility] Dec 27, 2024 09:40 AM [facility] December 28, 2024 10:00 AM AMBULATORY - MEDICINE [facility] Vital Signs: All taken on the encounter date This section contains inpatient and outpatient Vital Signs collected on the date of the Encounter. Date/Time Temperature Pulse Blood Pressure Respiratory Rate SP02 Pain Height Weight Body Mass Index Source Oct 31, 2024 02:03 PM 75 127/78 16 98 69.0 193.4 29 [facility] Social History: Smoking Status (Most current) and Tobacco Use (All prior to encounter date) This section includes the most current, and the historical, smoking and tobacco- related health factors from the [place] facility where the Encounter took place. Current Smoking Status This section includes the most current smoking, or tobacco-related health factor, from the [place] facility where the Encounter took place. Date/Time Current Smoking Status Comment Facil ity January 21, 2024 10:00 AM VA-TOBACCO FORMER USER [facility] Tobacco Use History This section includes a history of the smoking, or tobacco-related health factors, that were collected on or before the date of the Encounter. The data comes from the [place] facility where the Encounter took place. Date/Time Smoking Status/Tobacco Use Comment F acility January 21, 2024 10:00 AM VA-TOBACCO QUIT 5 TO < 15 YRS [facility] January 27, 2023 12:31 PM VA-TOBACCO FORMER USER [facility] January 27, 2023 12:31 PM VA-TOBACCO QUIT 15 YRS OR MORE [facility] Advance Directives: All historical and current Section Date Range: From patient's date of to the date document was created. This section includes ALL of a patient's completed or amended VA Advance and Rescinded Directives. The entries below indicate that a directive exists for the patient, but an actual copy is not included with this document. The data comes from all [place] facilities. Date Advance Directives Provider Source May 14, 2022 ADVANCE DIRECTIVE BERTHA NAZARIO [facility] Feb 05, 2017 ADVANCE DIRECTIVE DISCUSSION PEG SORENSEN [facility] Radiology Reports: +/- 30 days of the [...] the Encounter. The data comes from all [place] treatment facilities. Date/Time Radiology Report Provider Source Nov 17, 2024 10:59 AM MRI SHOULDER LEFT: GERDA ARAGON [id number] -1950 F Exm Date: NOV 17, 2024@10:59 Req Phys: JUAN CARLOS BRENNAN Loc: OUTSIDE PB-MRI (Req'g Loc) Img Loc: OUTSIDE PB-MRI Service: Unknown Screen: Patient is unable to answer or is unsure Screen Comment: OUTSIDE STUDY (Case [id number] COMPLETE) MRI SHOULDER LEFT (MRI Detailed) CPT:20254 Reason for Study: Exam imported from outside Clinical History: Original Data for Imported Study Patient Name: GERDA ARAGON Date: 1950 Sex: F Study Date: 11/17/24 Study Time: 10:59:27 Study Description: MR shoulder LT wo con* [id number] Referring Physician: UNKNOWN, UNKNOWN Series 1: 27 MR files, description: 3 PL LOC LEFT Series 2: 24 MR files, description: AX T2* GRE MERGE Series 3: 24 MR files, description: Ax PD FS Series 4: 24 MR files, description: SAG T2 FS Series 5: 24 MR files, description: SAG PD FS Series 6: 20 MR files, description: COR PD FS Series 7: 20 MR files, description: COR T1 Series 8: 20 MR files, description: COR T2 FS Acquisition site: [facility] Report Status: Electronically Filed Date Reported: DEC 06, 2024 Report: No report text Impression: No impression text VERIFIED BY: / *ELECTRONICALLY FILED* [place] [facility] Oct 31, 2024 02:24 PM SPINE LUMBOSACRAL 2 OR 3 VIEWS: MAHESH,KAREN NADIA [id number] -1950 F Exm Date: OCT 31, 2024@14:24 Req Phys: JUAN CARLOS BRENNAN Loc: PB-MICHAEL PACT [employer] 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 (Req Img Loc: PB-XRAY [place] Service: [place] [address] (Case [id number] COMPLETE) SPINE LUMBOSACRAL 2 OR 3 VIEWS (RAD Detailed) CPT:09917 Reason for Study: low back pain Clinical History: Report Status: Verified Date Reported: OCT 31, 2024 Date Verified: OCT 31, 2024 Machine Cementer E-Sig: Report: EXAM: Lumbar spine AP, lateral, [...] Primary Interpreting Staff: Antonio Avila M.D., Radiology (Machine Cementer, no e-sig) /ANTONIO RHODES [facility] Oct 31, 2024 02:24 PM SHOULDER,LEFT,2 OR MORE VIEWS: GERDA ARAGON [id number] -1950 F Exm Date: OCT 31, 2024@14:24 Req Phys: JUAN CARLOS BRENNAN Loc: PB-MICHAEL PACT 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 (Req Img Loc: PB-XRAY [place] Service: [place] [address] (Case [id number] COMPLETE) SHOULDER,LEFT,2 OR MORE VIEWS (RAD Detailed) CPT:96166 Proc Modifiers : LEFT Reason for Study: left shoulder pain Clinical History: suspect rotator cuff tear Report Status: Verified Date Reported: OCT 31, 2024 Date Verified: OCT 31, 2024 Machine Cementer E-Sig: Report: EXAM: Left shoulder 2 views. [...] Primary Interpreting Staff: Antonio Avila M.D., Radiology (Machine Cementer, no e-sig) /ANTONIO RHODES [facility] Encounter Notes: All associated encounter notes This section contains the clinical notes associated to the Encounter. Date/Time Encounter Note(s) Provider Source Oct 31, 2024 02:13 PM PRIMARY CARE PROGR ESS NOTE: LOCAL TITLE: PRIMARY CARE CLINIC PROGRESS NOTE PB STANDARD TITLE: PRIMARY CARE PROGRESS NOTE DATE OF NOTE: OCT 31, 2024@14:13 ENTRY DATE: OCT 31, 2024@14:13:37 AUTHOR: JUAN CARLOS BRENNAN EXP COSIGNER: URGENCY: STATUS: COMPLETED PROVIDER ASSESSMENT DATE & TIME:Oct@14:13 CHIEF COMPLAINT: Left shoulder pain. HISTORY OF PRESENT ILLNESS: [place] is being seen for left shoulder pain. She was moving furniture and lifted with her left arm in the beginning of August. Since then she has had weakness and limited range of motion. She needs referral to ortho and an MRI. Active problems/med list sample puller: 1) Actinic keratosis 2) Arthritis of knee 3) Chronic pain 4) Dcjof-7-psmjexatukx deficiency 5) Obstructive sleep apnea syndrome 6) COPD - Chronic Obstructive Pulmonary Disease (SCT [id number]) 7) Osteoporosis 8) Multiple nodules of lung 9) Cervical spondylosis 10) Hyperlipidemia ([facility] [id number]) 11) Tremor 12) Restless legs 13) Exposure to potentially hazardous substance 14) Myalgia Active Outpatient Medications (including Supplies): Active Outpatient Medications Status 1) AMLODIPINE BESYLATE 2.5MG TAB TAKE ONE TABLET BY MOUTH ONCE ACTIVE A DAY Indication: FOR HIGH BLOOD PRESSURE 2) CYCLOBENZAPRINE HCL 10MG TAB TAKE ONE TABLET BY MOUTH TWICE ACTIVE DAILY NEEDED MAY CAUSE DROWSINESS. DO NOT DRINK ALCOHOL WHILE TAKING THIS MEDICATION. Indication: FOR MUSCLE SPASM 3) INDOMETHACIN 25MG CAP TAKE ONE CAPSULE [...] ABSORB EXTRA COVERAGE USE/APPLY PAD TO ACTIVE AFFECTED AREA(S) TWICE A DAY - FEMALES [...] FOR URINARY TRACT INFECTION 10 Total Medications REVIEW OF SYSTEMS: HEENT: No [...] urinary frequency, weak stream, or post-void dribbling. MUSCULOSKELETAL:left shoulder pain. SKIN: No rash, lesions, or infection PSYCH: No Depression or Anxiety. Not suicidal. PHYSICAL ASSESSMENT: VITAL SIGNS Pulse: 75 (10/31/2024 14:03) Blood Pressure: 127/78 (10/31/2024 14:03) Respiratory Rate: 16 (10/31/2024 14:03) Temperature: 98 F [36.7 C] (10/04/2024 09:40) Weight: 193.4 lb [87.72 kg] (10/31/2024 14:03) Height: 69.0 in [175.3 cm] (10/31/2024 14:03) Pain: 4 (05/09/2024 08:31) NECK: Supple, no lymhadenopathy, thyroid normal. CARDIAC: Regular rate and rhythm without murmur. No edema. RESPIRATORY: CTA, BEBS GI: Abdomen soft,with ABS, no HSM, no guarding or rebound. MUSCULOSKELETAL:Left shoulder pain with limited extension and abduction. Positive arm drop test. Negative impingement syndrome. SKIN: [place] without rash or lesions. NEUROLOGICAL: The [place] is alert and oriented without distress. Affect appropriate. IMPRESSION: Left Shoulder Pain-current PLAN: Will order MRI. Will refer to Orthopedics. Continue current medications. Patient is advised this primary care clinic [...] Reconciled. Time spent 30 minutes. /sarabjit/ [facility]NG [facility] GIGI Signed: 11/05/2024 21:17 [facility] Oct 31, 2024 01:53 PM PRIMARY CARE NURSI NG NOTE: LOCAL TITLE: PRIMARY CARE NURSING PROGRESS NOTE (TEXT) NURSING P STANDARD TITLE: PRIMARY CARE NURSING NOTE DATE OF NOTE: OCT 31, 2024@13:53 ENTRY DATE: OCT 31, 2024@13:53:55 AUTHOR: JEANIE HARP EXP COSIGNER: URGENCY: STATUS: COMPLETED Established Patient GERDA ARAGON IS A 74 YEAR OLD FEMALE BEING SEEN IN CLINIC OCT 31, 2024. == == REASON FOR VISIT: here today for c/o Left Shoulder pain Are you receiving care any where other than the [facility]? No HEALTH AND SURGICAL HISTORY: Does patient report using home oxygen? No CURRENT ACTIVE MEDICATIONS FOR REVIEW: Allergies/ADRs (Tool #5) FACILITY ALLERGY/ADR -------- [facility] ALBUTEROL [facility] CODEINE [facility] ALBUTEROL [facility] CODEINE [facility] LISINOPRIL Med. Reconciliation (Tool #1) INCLUDED IN THIS LIST: Alphabetical list of active outpatient prescriptions dispensed from this [place] (local) and dispensed from another [place] or [facility] facility (remote) as well as inpatient orders (local pending and active), local clinic medications, locally documented non-VA medications, and local prescriptions that have or been discontinued in the past 90 days. Non-VA Meds Last Documented On: January 06, 2024 NOTE The display of VA prescriptions dispensed from another [place] or [facility] facility (remote) is limited to active outpatient prescription entries matched to National Drug File at the originating site and may not include some items such as investigational drugs, compounds, etc. NOT INCLUDED IN THIS LIST: Medications self-entered by the patient into personal health records (i.e. [employer]) are NOT included in this list. Non-VA medications documented outside this [place], remote inpatient orders (regardless of status) and remote clinic medications are NOT included in this list. The patient and provider must always discuss medications the patient is taking, regardless of where the medication was dispensed or obtained. OUTPT ACETAMINOPHEN 500MG TAB (Status = ) TAKE ONE TABLET BY MOUTH THREE TIMES A DAY NEEDED FOR PAIN CAUTION: DO NOT EXCEED 4000MG PER DAY ACETAMINOPHEN (APAP) FROM ALL MEDS. Rx# [id number] Last Released: 10/14/23 Qty/Days Supply: Rx Expiration Date: 10/12/24 Refills Remainin Indication: FOR PAIN OUTPT AMLODIPINE BESYLATE 2.5MG TAB (Status = Active) TAKE ONE TABLET BY MOUTH ONCE A DAY FOR HIGH BLOOD PRESSURE Rx# [id number] Last Released: 06/17/24 Qty/Days Supply: 90 Rx Expiration Date: 02/18/25 Refills Remainin Indication: FOR HIGH BLOOD PRESSURE Non-VA CEPHALEXIN 500MG CAP TAKE 1 CAPSULE BY MOUTH EVERY 6 HOURS January 06, 2024 VA RX: Non-VA medication recommended by VA provider Indication: FOR URINARY TRACT INFECTION OUTPT CYCLOBENZAPRINE HCL 10MG TAB (Status = Active) TAKE ONE TABLET BY MOUTH TWICE DAILY NEEDED FOR MUSCLE SPASM MAY CAUSE DROWSINESS. DO NOT DRINK ALCOHOL WHILE TAKING THIS MEDICATION. Rx# [id number] Last Released: 10/20/24 Qty/Days Supply: 180 Rx Expiration Date: 10/18/25 Refills Remainin Indication: FOR MUSCLE SPASM OUTPT INDOMETHACIN 25MG CAP (Status = Active) TAKE ONE CAPSULE BY MOUTH TWICE A DAY FOR OSTEOARTHRITIS (TAKE WITH FOOD) Rx# [id number] Last Released: 09/02/24 Qty/Days Supply: 180/90 Rx Expiration Date: 06/21/25 Refills Remainin Indication: FOR OSTEOARTHRITIS OUTPT LIDOCAINE 5% PATCH (Status = Active) APPLY 1 PATCH TO SKIN SITE ONCE A DAY FOR LOCAL ANESTHESIA APPLY PATCH AND PRESS FIRMLY FOR 10-15 SECONDS. KEEP ON FOR 12 HOURS THEN REMOVE PATCH FOR 12 HOURS. Rx# [id number] Last Released: 05/06/24 Qty/Days Supply: Rx Expiration Date: 05/05/25 Refills Remainin Indication: FOR LOCAL ANESTHESIA OUTPT MONTELUKAST NA 10MG TAB (Status = Active) TAKE ONE TABLET BY MOUTH EVERY EVENING FOR ALLERGIC RHINITIS Rx# [id number] Last Released: 08/02/24 Qty/Days Supply: 90 Rx Expiration Date: 08/01/25 Refills Remainin Indication: FOR ALLERGIC RHINITIS OUTPT ONDANSETRON HCL 8MG TAB (Status = Active) TAKE ONE-HALF TABLET BY MOUTH ONCE A DAY NEEDED FOR NAUSEA/VOMITING Rx# [id number] Last Released: 01/26/24 Qty/Days Supply: Rx Expiration Date: 01/22/25 Refills Remainin Indication: FOR NAUSEA/VOMITING OUTPT ROPINIROLE HCL 1MG TAB (Status = Active) TAKE ONE TABLET BY MOUTH TWICE DAILY NEEDED FOR RESTLESS LEG SYNDROME Rx# [id number] Last Released: 06/22/24 Qty/Days Supply: 180 Rx Expiration Date: 06/16/25 Refills Remainin Indication: FOR RESTLESS LEG SYNDROME OUTPT VENLAFAXINE HCL 75MG 24HR SA CAP (Status = Active) TAKE ONE CAPSULE BY MOUTH ONCE A DAY FOR DEPRESSION WITH FOOD. DO NOT ABRUPTLY DISCONTINUE MEDICATION. Rx# [id number] Last Released: 08/03/24 Qty/Days Supply: Rx Expiration Date: 02/21/25 Refills Remainin Indication: FOR DEPRESSION SUPPLIES OUTPT POISE PAD,MODERATE ABSORB EXTRA COVERAGE (Status = Active) USE/APPLY PAD TO AFFECTED AREA(S) TWICE A DAY FOR INCONTINENCE - FEMALES ONLY Rx# [id number] Last Released: 09/07/24 Qty/Days Supply: 216 Rx Expiration Date: 09/07/25 Refills Remainin Indication: FOR INCONTINENCE PHARMACY TERMS AND POSSIBLE PATIENT ACTIONS INPT = [place] inpatient order IV = [place] intravenous medication OUTPT = [place] outpatient prescription PHARMACY POSSIBLE PATIENT TERMS EXPLANATION ACTIONS -------- ----- ACTIVE A prescription that can be If you have refills, filled at the local VA pharmacy. you may request a refill of this prescription from your VA pharmacy. CLINIC A medication you received during If you have questions a visit to a VA clinic or about this medication emergency department. contact your VA healthcare team. DISCONTINUED A prescription your provider has Contact your VA stopped. It is no longer healthcare team if you available to be sent to you or need more of this picked up at the [place] pharmacy medication. window. A prescription which is [...] the VA. Or, it may be an qvgr-sde-tozhtfy (OTC), herbal, dietary supplements or sample medication. [...] An active prescription that is Contact your [place] not scheduled to be filled yet. pharmacy if you need You should receive it before this medication now. you run out. Medication list reviewed with Patient Patient/Caregiver reports taking medications as ordered. IS PATIENT TAKING ANY OVER THE COUNTER MEDICATIONS, SUCH VITAMINS OR HERBAL SUPPLEMENTS, INCLUDING ANY MEDICATIONS PRESCRIBED BY ANOTHER PHYSICIAN? No Does patient have any new allergies to report since last visit? NO VITALS: TEMPERATURE: 98 F [36.7 C] (10/04/2024 09:40) BP: 158/104 (10/04/2024 09:40) RESP: 18 (05/09/2024 08:31) PULSE: 66 (10/04/2024 09:40) HT: 69.0 in [175.3 cm] (05/09/2024 08:31) WT: 178.2 lb [80.83 kg] (05/09/2024 08:31) BMI: 26.4 PAIN ASSESSMENT: (Most Recent Pain Score in Vitals Package: 4 (05/09/2024 08:31) ) The patient indicated that they and [...] This patient's last pain assessment score was: 4 (05/09/2024 08:31). A detailed pain assessment showed the following: Pain characteristics (per patient's own words) Joint, Shoulder STRESS: Thank you for your service. Now let us serve you. At the [facility], we strive to provide you [...] Not At All SPIRITUAL ASSESSMENT: Are there bahai practices or spiritual concerns you want the chute tender, your physician, and other health care team members to immediately know about? No Patient advised to call the clinic for any concerns, questions, or symptoms. Patient and/or caregiver verbalized understanding of plan of care. /sarabjit/ JEANIE HARP LPN Signed: 10/31/2024 14:16 JEANIE HARP [facility]
--- OUTSIDE RECORDS SUMMARY | 2024-11-01 04:40 | XMS_ITS | Encounter Summary ---
Author Name [facility] [place] [facility] [place] Address [address] [place] [address] Care Team Providers Care Pattern Puncher Name Role Phone JUAN CARLOS BRENNAN Primary [...] MEDICARE ADVANTAGE MCR (WNR) Aug 30, 2022 [id number] GERDA ARAGON PATIENT HUMANA MCR (WNR) MEDICARE ADVANTAGE MCR (WNR) Aug 30, 2022 [id number] [phone] GERDA ARAGON PATIENT MEDICARE (WNR) MEDICARE (M) PART A Jun 30, 2017 PART A [id number] GERDA ARAGON PATIENT MEDICARE (WNR) MEDICARE (M) PART B Jun 30, 2017 PART B [id number] GERDA ARAGON PATIENT MEDICARE (WNR) MEDICARE (M) PART A Jun 30, 2017 PART A [id number] GERDA ARAGON PATIENT MEDICARE (WNR) MEDICARE (M) PART B Jun 30, 2017 PART B [id number] GERDA ARAGON PATIENT WELLCARE MCR (WNR) MEDICARE ADVANTAGE [facility] (WNR) Sep 30, 2023 [id number] GERDA ARAGON PATIENT Selected Encounter This section includes the information on record at [place] for the Encounter. 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 Date/Time Primary/Secondary Diagnosis Diagnosis Name Provider Source Nov 01, 2024 09:47 AM PRIMARY Segmental and somatic dysfunction of cervical region [facility] R[facility] Nov 01, 2024 09:47 AM SECONDARY Cervicalgia [facility] R[facility] Nov 01, 2024 09:47 AM SECONDARY Oth intvrt disc degen, lumbosacr w discog bck & lw extrm pn MORRIS RICH [facility] Nov 01, 2024 09:47 AM SECONDARY Pain in thoracic spine M[facility]RIS RICH [facility] Nov 01, 2024 09:47 AM SECONDARY Segmental and somatic dysfunction of lumbar region [facility] R[facility] Nov 01, 2024 09:47 AM SECONDARY Segmental and somatic dysfunction of pelvic region [facility] RICH [facility] Nov 01, 2024 09:47 AM SECONDARY Segmental and somatic dysfunction of [...] Appointment Type Appointme nt Facility Name Nov 03, 2024 11:00 AM [place] [facility] Nov 07, 2024 08:30 AM [facility] Nov 07, 2024 08:32 AM [facility] [place] [facility] Nov 07, 2024 10:40 AM [facility] [facility] Nov 10, 2024 02:00 PM [facility] [place] [facility] Nov 13, 2024 02:30 PM [facility] [place] [facility] Nov 14, 2024 10:40 AM AMBULATORY - MEDICINE [facility] Nov 17, 2024 11:00 AM [facility] [place] [facility] Nov 23, 2024 01:45 PM [facility] [place] [facility] Nov 29, 2024 09:40 AM [facility] [facility] Dec 01, 2024 10:30 AM [facility]ULATORY - MEDICINE [facility] Dec 07, 2024 02:00 PM AMBULATORY - MEDICINE [facility] Dec 07, 2024 02:01 PM [facility] [place] [facility] Dec 13, 2024 09:40 AM AMBULATORY - MEDICINE [facility] Dec 13, 2024 10:30 AM AMBULATORY - MEDICINE [facility] Dec 25, 2024 03:30 PM AMBULATORY - MEDICINE [facility] Dec 27, 2024 09:40 AM AMBULATORY - MEDICINE [facility] December 28, 2024 10:00 AM AMBULATORY - MEDICINE [facility] January 08, 2025 11:30 AM [facility] January 08, 2025 12:00 PM AMBULATORY - MEDICINE [facility] Vital Signs: All taken on the encounter date This section contains inpatient and outpatient Vital Signs collected on the date of the Encounter. Date/Time Temperature Pulse Blood Pressure Respiratory Rate SP02 Pain Height Weight Body Mass Index Source Nov 01, 2024 09:40 AM 98.1 72 171/89 [facility] Social History: Smoking Status (Most [...] 21, 2024 10:00 AM VA-TOBACCO FORMER USER [facility] Tobacco Use History This section includes a history of the smoking, or tobacco-related health factors, that were collected on or before the date of the Encounter. The data comes from the [place] facility where the Encounter took place. Date/Time Smoking Status/Tobacco Use Comment F acility January 21, 2024 10:00 AM VA-TOBACCO QUIT 5 TO < 15 YRS [facility] January 27, 2023 12:31 PM VA-TOBACCO FORMER USER [facility] January 27, 2023 12:31 PM VA-TOBACCO QUIT 15 YRS OR MORE [facility] Advance Directives: All historical and current Section Date Range: From patient's date of to the date document was created. This section includes ALL of a patient's completed or amended [place] Advance and Rescinded Directives. The entries below indicate that a directive exists for the patient, but an actual copy is not included with this document. The data comes from all [facility]. Date Advance Directives Provider Source May 14, 2022 ADVANCE DIRECTIVE BERTHA NAZARIO [facility] Feb 05, 2017 ADVANCE DIRECTIVE DISCUSSION PEG SORENSEN [facility] Radiology Reports: +/- 30 days [...] 10:59 AM MRI SHOULDER LEFT: GERDA ARAGON NADIA [id number] -1950 F Exm Date: NOV 17, 2024@10:59 Req Phys: JUAN CARLOS BRENNAN Loc: OUTSIDE PB-MRI (Req'g Loc) Img Loc: OUTSIDE PB-MRI Service: Unknown Screen: Patient is unable to answer or is unsure Screen Comment: OUTSIDE STUDY (Case [id number] COMPLETE) MRI SHOULDER LEFT (MRI Detailed) CPT:74844 Reason for Study: Exam imported from outside Clinical History: Original Data for Imported Study Patient Name: GERDA ARAGON Date: 1950 Sex: F Study Date: 11/17/24 Study Time: 10:59:27 Study Description: MR shoulder LT wo con* [id number] Referring Physician: UNKNOWN, UNKNOWN Series 1: 27 [...] files, description: COR T2 FS Acquisition site: [facility] Report Status: Electronically Filed Date Reported: DEC 06, 2024 Report: No report text Impression: No impression text VERIFIED BY: / *ELECTRONICALLY FILED* [facility] Oct 31, 2024 02:24 PM SHOULDER,LEFT,2 OR MORE VIEWS: GERDA ARAGON [id number] -1950 F Exm Date: OCT 31, 2024@14:24 Req Phys: JUAN CARLOS BRENNAN Loc: PB-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 [...] Primary Interpreting Staff: Antonio Avila M.D., Radiology (Industrial Economics Professor, no e-sig) /ANTONIO RHODES [facility] Oct 31, 2024 02:24 PM SPINE LUMBOSACRAL 2 OR 3 VIEWS: GERDA ARAGON [id number] -1950 F Exm Date: OCT 31, 2024@14:24 Req Phys: JUAN CARLOS BRENNAN Loc: PB-MICHAEL PACT JAMES MATHIAS [facility] (Req Img Loc: PB-XRAY [place] Service: [place] [address] (Case [id number] COMPLETE) SPINE LUMBOSACRAL 2 OR 3 VIEWS (RAD Detailed) CPT:84049 Reason for Study: low back pain Clinical History: Report Status: Verified Date Reported: OCT 31, 2024 Date Verified: OCT 31, 2024 Industrial Economics Professor E-Sig: Report: EXAM: Lumbar spine AP, lateral, [...] Primary Interpreting Staff: Antonio Avila M.D., Radiology (Industrial Economics Professor, no e-sig) /ANTONIO RHODES [facility] Encounter Notes: All associated encounter notes This section contains the clinical notes associated to the Encounter. Date/Time Encounter Note(s) Provider Source Nov 01, 2024 09:37 AM CHIROPRACTIC NOTE: LOCAL TITLE: CHIROPRACTIC FOLLOW UP NOTE PB STANDARD TITLE: CHIROPRACTIC NOTE DATE OF NOTE: NOV 01, 2024@09:37 ENTRY DATE: NOV 01, 2024@09:37:16 AUTHOR: MORRIS RICH COSIGNER: URGENCY: STATUS: COMPLETED CHIROPRACTIC FOLLOW-UP VISIT Patient's language preference for health information: Malawian Other Communication Methods Needed: SUBJECTIVE: The is a 74 year old FEMALE being seen in the Chiropractic clinic for follow-up visit. The [place] states her lower back and shoulder pain flared up after moving furniture earlier this week. Today, the rates her pain level as a 7-8/10. PAST MEDICAL HISTORY: see problem list SOCIO-ECONOMIC [...] restricted in all planes of motion. The [place] experience pain with the restricted AROM. LUMBAR/THORACIC SPINE: MOVEMENT/POSTURE: The [place] ambulates without issue. SEGMENTAL DYSFUNCTION: Joint dysfunction was noted in the T spine: T4 and T8, L spine: L5, and at the right SI joint. PALPATION: The following vertebral spinous processes were tender to palpation: T4, T8, L5, and the right PSIS. RANGE OF MOTION: AROM of the lumbar spine was restricted and painful in all planes of motion. REVIEW OF DIAGNOSTIC IMAGING: SPINE LUMBOSACRAL 2 OR 3 VIEWS Reason for Study: low back pain Date Reported: OCT 31, 2024 Report: EXAM: Lumbar spine AP, lateral, and [...] Calcified atherosclerotic change involving the abdominal aorta. ASSESSMENT: Cervical spine, thoracic spine, lumbar spine, [...] exercise plan. /sarabjit/ [facility] Signed: 11/01/2024 09:47 MORRIS RICH
--- OUTSIDE RECORDS SUMMARY | 2024-11-06 09:43 | XMS_ITS ---
Author Name [facility] [place] [facility] [place] Address [address] [place] [address] Care Team Providers Care Fill Technician Name Role Phone JUAN CARLOS BRENNAN [...] MEDICARE ADVANTAGE MCR (WNR) Aug 30, 2022 [id number] GERDA ARAGON PATIENT HUMANA MCR (WNR) MEDICARE ADVANTAGE MCR (WNR) Aug 30, 2022 [id number] GERDA ARAGON PATIENT MEDICARE (WNR) MEDICARE (M) PART A Jun 30, 2017 PART A [id number] GERDA ARAGON PATIENT MEDICARE (WNR) MEDICARE (M) PART B Jun 30, 2017 PART B [id number] GERDA ARAGON PATIENT MEDICARE (WNR) MEDICARE (M) PART A Jun 30, 2017 PART A [id number] GERDA ARAGON PATIENT MEDICARE (WNR) MEDICARE (M) PART B Jun 30, 2017 PART B [id number] GERDA ARAGON PATIENT WELLCARE MCR (WNR) MEDICARE ADVANTAGE [facility] (WNR) Sep 30, 2023 [id number] GERDA ARAGON PATIENT Selected Encounter This section includes the information on record at [place] for the Encounter. Date/Time Encounter Type Encounter Description Reason Pro vider Source Nov 06, 2024 02:43 PM Outpatient Encounter ADMIN PAT ACTIVTIES (MASNONCT) IHE Encounter Template Text not used by [place] Plan of Treatment: Future Appointments (+ 6 months) and Future Tests (+/- 45 days) The Plan of Treatment section includes future care activities for the patient from all [place] treatmentfacilities. This section includes future appointments and future orders which are active, pending or scheduled. Future Appointments This section includes appointments that were scheduled to occur 6 months from the date of the Encounter, up to a maximum of 20 appointments. The data comes from all [place] treatment facilities. Appointment Date/Time Appointment Type Appointme nt Facility Name Nov 07, 2024 08:30 AM AM[facility]ATORY [facility] Nov 07, 2024 08:32 AM [facility] [place] [facility] Nov 07, 2024 10:40 AM AMBULATORY - MEDICINE [facility] Nov 10, 2024 02:00 PM AMBULATORY - MEDICINE [facility] Nov 13, 2024 02:30 PM AM[facility]ULATORY [facility] [place] [facility] Nov 14, 2024 10:40 AM AMBULATORY - MEDICINE [facility] Nov 17, 2024 11:00 AM AMBULATORY - [place] [facility] Nov 23, 2024 01:45 PM AMBULATORY - [place] [facility] Nov 29, 2024 09:40 AM AMBULATORY - MEDICINE [facility] Dec 01, 2024 10:30 AM AMBULATORY - MEDICINE [facility] Dec 07, 2024 02:00 PM AMBULATORY - MEDICINE [facility] Dec 07, 2024 02:01 PM AMBULATORY - [place] [facility] Dec 13, 2024 09:40 AM AM[facility]ULATORY - [facility] Dec 13, 2024 10:30 AM AM[facility]ULAT[facility] - [facility] Dec 25, 2024 03:30 PM [facility] Dec 27, 2024 09:40 AM [facility] December 28, 2024 10:00 AM [facility] January 08, 2025 11:30 AM [facility] January 08, 2025 12:00 PM [facility] January 08, 2025 12:01 PM AM[facility]ULATORY - [facility] [place] [facility] Social History: Smoking Status (Most current) and Tobacco Use (All prior to encounter date) This section includes the most current, and the historical, smoking and tobacco- related health factors from the [place] facility where the Encounter took place. Current Smoking Status This section includes the most current smoking, or tobacco-related health factor, from the [place] facility where the Encounter took place. Date/Time Current Smoking Status Comment Facil ity January 21, 2024 10:00 AM VA-TOBACCO FORMER USER [facility] Tobacco Use History This section includes a history of the smoking, or tobacco-related health factors, that were collected on or before the date of the Encounter. The data comes from the [place] facility where the Encounter took place. Date/Time Smoking Status/Tobacco Use Comment F acility January 21, 2024 10:00 AM VA-TOBACCO QUIT 5 TO < 15 YRS [facility] January 27, 2023 12:31 PM VA-TOBACCO FORMER USER [facility] January 27, 2023 12:31 PM VA-TOBACCO QUIT 15 YRS OR MORE [facility] Advance Directives: All historical and current Section Date Range: From patient's date of to the date document was created. This section includes ALL of a patient's completed or amended [place] Advance and Rescinded Directives. The entries below indicate that a directive exists for the patient, but an actual copy is not included with this document. The data comes from all [place] facilities. Date Advance Directives Provider Source May 14, 2022 ADVANCE DIRECTIVE BERTHA NAZARIO [facility] Feb 05, 2017 ADVANCE DIRECTIVE DISCUSSION PEG SORENSEN [facility] Radiology Reports: +/- 30 days of the [...] the Encounter. The data comes from all [place] treatment facilities. Date/Time Radiology Report Provider Source Nov 17, 2024 10:59 AM MRI SHOULDER LEFT: GERDA ARAGON [id number] -1950 F Exm Date: NOV 17, 2024@10:59 Req Phys: JUAN CARLOS BRENNAN Loc: OUTSIDE PB-MRI (Req'g Loc) Img Loc: OUTSIDE PB-MRI Service: Unknown Screen: Patient is unable to answer or is unsure Screen Comment: OUTSIDE STUDY (Case [id number] COMPLETE) MRI SHOULDER LEFT (MRI Detailed) CPT:55298 Reason for Study: Exam imported from outside Clinical History: Original Data for Imported Study Patient Name: GERDA ARAGON Date: 1950 Sex: F Study Date: 11/17/24 Study Time: 10:59:27 Study Description: MR shoulder LT wo con* [id number] Referring Physician: UNKNOWN, UNKNOWN Series 1: 27 [...] files, description: COR T2 FS Acquisition site: [facility] Report Status: Electronically Filed Date Reported: DEC 06, 2024 Report: No report text Impression: No impression text VERIFIED BY: / *ELECTRONICALLY FILED* [place] [facility] Oct 31, 2024 02:24 PM SPINE LUMBOSACRAL 2 OR 3 VIEWS: GERDA ARAGON [id number] -1950 F Exm Date: OCT 31, 2024@14:24 Req Phys: JUAN CARLOS BRENNAN Pat Loc: PB-MICHAEL JOSE RAMIREZ EMPLOYMENT SERVICE SPECIALIST WH (Req Img Loc: PB-XRAY [place] Service: [place] [address] (Case [id number] COMPLETE) SPINE LUMBOSACRAL 2 OR 3 VIEWS (RAD Detailed) CPT:64452 Reason for Study: low back pain Clinical History: Report Status: Verified Date Reported: OCT 31, 2024 Date Verified: OCT 31, 2024 Mail Inserter E-Sig: Report: EXAM: Lumbar spine AP, lateral, [...] Primary Interpreting Staff: Antonio Avila M.D., Radiology (Mail Inserter, no e-sig) /ANTONIO RHODES [facility] Oct 31, 2024 02:24 PM SHOULDER,LEFT,2 OR MORE VIEWS: GERDA ARAGON [id number] -1950 F Exm Date: OCT 31, 2024@14:24 Req Phys: JUAN CARLOS BRENNAN Loc: PB-MICHAEL PACT JAMES EMPLOYMENT SERVICE SPECIALIST WH (Req Img Loc: PB-XRAY [place] Service: [place] [address] (Case [id number] COMPLETE) SHOULDER,LEFT,2 OR MORE VIEWS (RAD Detailed) CPT:51014 Proc Modifiers : LEFT Reason for Study: left shoulder pain Clinical History: suspect rotator cuff tear Report Status: Verified Date Reported: OCT 31, 2024 Date Verified: OCT 31, 2024 Mail Inserter E-Sig: Report: EXAM: Left shoulder 2 views. [...] Primary Interpreting Staff: Antonio Avila M.D., Radiology (Mail Inserter, no e-sig) /[facility] Encounter Notes: All associated encounter notes This section contains the clinical notes associated to the Encounter. Date/Time Encounter Note(s) Provider Source Nov 06, 2024 02:43 PM GENERAL MEDICINE N OTE: LOCAL TITLE: General Note PB STANDARD TITLE: GENERAL MEDICINE NOTE DATE OF NOTE: NOV 06, 2024@14:43 ENTRY DATE: NOV 06, 2024@14:43:11 AUTHOR: DARÍO PEDRAZA EXP COSIGNER: URGENCY: STATUS: COMPLETED Confirmed Audiology appt with Holiday for 11/07 @ 830am /es/ DARÍO PEDRAZA Telehealth Clinical Life Science Teacher Signed: 11/06/2024 14:43 DARÍO PEDRAZA [facility]
--- OUTSIDE RECORDS SUMMARY | 2024-11-07 03:32 | XMS_ITS ---
Author Name [facility] [place] Organization [facility] [place] Address [address] [place] [address] Care Team Providers Care Ecommerce Marketing Manager Name Role Phone JUAN CARLOS BRENNAN [...] MEDICARE ADVANTAGE MCR (WNR) Aug 30, 2022 [id number] GERDA ARAGON PATIENT HUMANA MCR (WNR) MEDICARE ADVANTAGE MCR (WNR) Aug 30, 2022 [id number] GERDA ARAGON PATIENT MEDICARE (WNR) MEDICARE (M) PART A Jun 30, 2017 PART A [id number] GERDA ARAGON PATIENT MEDICARE (WNR) MEDICARE (M) PART B Jun 30, 2017 PART B [id number] GERDA ARAGON PATIENT MEDICARE (WNR) MEDICARE (M) PART A Jun 30, 2017 PART A [id number] GERDA ARAGON PATIENT MEDICARE (WNR) MEDICARE (M) PART B Jun 30, 2017 PART B [id number] GERDA ARAGON PATIENT [facility] (WNR) MEDICARE ADVANTAGE [facility] (WNR) Sep 30, 2023 [id number] [phone] GERDA ARAGON PATIENT Selected Encounter This section includes the information on record at ID for the Encounter. Date/Time Encounter Type Encounter Description Reason Provider Source Nov 07, 2024 08:32 AM HEARING AID XM&SLCTN [facility] AUDIOLOGY ICD-10-CM H93.13 Tinnitus, bilateral GRAVES,ALEXAND RA A E Encounter Template Text not used by ID Assessments - Encounter Diagnoses This section includes the primary and secondary diagnoses documented for the Encounter. Date/Time Primary/Secondary Diagnosis Diagnosis Name Provider Source Nov 07, 2024 08:50 AM PRIMARY Tinnitus, bilateral GRAVES,ALEXAND RA A [place] [facility] Nov 07, 2024 08:50 AM SECONDARY Sensorineural hearing loss, bilateral GRAVES,ALEXAND RA A [place] [facility] Plan of Treatment: Future Appointments (+ 6 months) and Future Tests (+/- 45 days) The Plan of Treatment section includes future care activities for the patient from all [facility]. This section includes future appointments and future orders which are active, pending or scheduled. Future Appointments This section includes appointments that were scheduled to occur 6 months from the date of the Encounter, up to a maximum of 20 appointments. The data comes from all [place] treatment facilities. Appointment Date/Time Appointment Type Appointme nt Facility Name Nov 10, 2024 02:00 PM AMBULATORY - MEDICINE [facility] Nov 13, 2024 02:30 PM AMBULATORY - MEDICINE [place] [facility] Nov 14, 2024 10:40 AM AMBULATORY - MEDICINE [facility] Nov 17, 2024 11:00 AM AMBULATORY [place] [facility] Nov 23, 2024 01:45 PM AMBULATORY - [place] [facility] Nov 29, 2024 09:40 AM AMBULATORY - MEDICINE [facility] Dec 01, 2024 10:30 AM AMBULATORY - MEDICINE [facility] Dec 07, 2024 02:00 PM [facility] [place] [facility] Dec 07, 2024 02:01 PM AMBULATORY - MEDICINE [place] [facility] Dec 13, 2024 09:40 AM [facility] [place] [facility] [place] [facility] Dec 13, 2024 10:30 AM [facility] [place] [facility] Dec 25, 2024 03:30 PM [facility] [place] [facility] Dec 27, 2024 09:40 AM [facility] [place] [facility] [place] [facility] December 28, 2024 10:00 AM [facility] [facility] January 08, 2025 11:30 AM [facility] [facility] January 08, 2025 12:00 PM [place] [place] [facility] January 08, 2025 12:01 PM AMBULATORY - MEDICINE [place] [facility] January 11, 2025 07:30 AM AMBULATORY - MEDICINE [place] [facility] January 16, 2025 12:15 PM AMBULATORY - MEDICINE [place] [facility] January 24, 2025 10:15 AM AMBULATORY - NONE [place] [facility] Advance Directives: All historical and current [...] May 14, 2022 ADVANCE DIRECTIVE BERTHA NAZARIO [facility] Feb 05, 2017 ADVANCE DIRECTIVE DISCUSSION PEG SORENSEN [facility] Radiology Reports: +/- 30 days [...] 10:59 AM MRI SHOULDER LEFT: GERDA ARAGON [id number] -1950 F Exm Date: NOV 17, 2024@10:59 Req Phys: JUAN CARLOS BRENNAN Loc: OUTSIDE PB-MRI (Req'g Loc) Img Loc: OUTSIDE PB-MRI Service: Unknown Screen: Patient is unable to answer or is unsure Screen Comment: OUTSIDE STUDY (Case [id number] COMPLETE) MRI SHOULDER LEFT (MRI Detailed) CPT:83312 Reason for Study: Exam imported from outside Clinical History: Original Data for Imported Study Patient Name: GERDA ARAGON Date: 1950 Sex: F Study Date: 11/17/24 Study Time: :27 Study Description: MR shoulder LT wo con* [id number] Referring Physician: UNKNOWN, UNKNOWN Series 1: 27 [...] files, description: COR T2 FS Acquisition site: [facility] Report Status: Electronically Filed Date Reported: DEC 06, 2024 Report: No report text Impression: No impression text VERIFIED BY: / *ELECTRONICALLY FILED* [place] [facility] Oct 31, 2024 02:24 PM SPINE LUMBOSACRAL 2 OR 3 VIEWS: GERDA ARAGON [id number] -1950 F Exm Date: OCT 31, 2024@14:24 Req Phys: JUAN CARLOS BRENNAN Loc: PB-MICHAEL PACT FOXTROT SHEARING SUPERVISOR WH (Req Img Loc: PB-XRAY [place] Service: Unknown [facility] [place] [address] (Case [id number] COMPLETE) SPINE LUMBOSACRAL 2 OR 3 VIEWS (RAD Detailed) CPT:41956 Reason for Study: low back pain Clinical History: Report Status: Verified Date Reported: OCT 31, 2024 Date Verified: OCT 31, 2024 Regional Truck Driver E-Sig: Report: EXAM: Lumbar spine AP, lateral, [...] Primary Interpreting Staff: Antonio Avila M.D., Radiology (Regional Truck Driver, no e-sig) /ANTONIO RHODES [facility] Oct 31, 2024 02:24 PM SHOULDER,LEFT,2 OR MORE VIEWS: GERDA ARAGON [id number] -1950 F Exm Date: OCT 31, 2024@14:24 Req Phys: JUAN CARLOS BRENNAN Loc: PB-MICHAEL PACT JAMES SHEARING SUPERVISOR WH (Req Img Loc: PB-XRAY [place] Service: [place] [address] (Case [id number] COMPLETE) SHOULDER,LEFT,2 OR MORE VIEWS (RAD Detailed) CPT:63467 Proc Modifiers : LEFT Reason for Study: left shoulder pain Clinical History: suspect rotator cuff tear Report Status: Verified Date Reported: OCT 31, 2024 Date Verified: OCT 31, 2024 Regional Truck Driver E-Sig: Report: EXAM: Left shoulder 2 views. [...] Primary Interpreting Staff: Antonio Avila M.D., Radiology (Regional Truck Driver, no e-sig) /ANTONIO RHODES [facility] Encounter Notes: All associated encounter notes This section contains the clinical notes associated to the Encounter. Date/Time Encounter Note(s) Provider Source Nov 07, 2024 07:46 AM AUDIOLOGY NOTE: LOCAL TITLE: HEARING CLINIC PB STANDARD TITLE: AUDIOLOGY NOTE DATE OF NOTE: NOV 07, 2024@07:46 ENTRY DATE: NOV 07, 2024@07:46:05 AUTHOR: YADIRA FERNANDO COSIGNER: URGENCY: STATUS: COMPLETED Diagnosis: Sensorineural Hearing Loss, Bilateral and Tinnitus, Bilateral Treatment: Hearing Evaluation Time spent with Geraldine: 60 minutes seen for an audiogram via Audio Telehealth and verbally consented to the Telehealth modality. Multi-factor personally identifiable information of the was obtained verbally (full name and date of ). accompanied by: none Patient site: [facility] AUDIOLOGIC HISTORY: Patient seen today for an updated hearing evaluation. - Ear surgery: no - Aural Pain/Pressure/Drainage: no - Tinnitus: bilateral/constant/bothers ome - Noise Exposure: yes HEARING DEVICES: none AUDIOMETRIC EXAM: Otoscopy was performed by collaboration of telehealth clinical emergency medical technician basic and provider via telehealth technology/video otoscope which revealed: Right: unremarkable Left: unremarkable Tympanograms: Right: consistent with normal middle ear function Left: consistent with normal middle ear function Acoustic Reflex Thresholds: could not test due to excessive artifact Pure-Tone Air and Bone-Conduction Audiometric Testing revealed: Right: within normal limits 250-2000 Hz, mild to moderate sensorineural hearing loss Left: within normal limits 250-1500 Hz, mild to moderately-severe sensorineural hearing loss Speech Recognition Threshold testing yielded: Right: 25 dBHL Left: 25 dBHL Word Recognition testing yielded: Right: 96% @ 60 dBHL Left: 96% @ 60 dBHL Word scoring may be impacted by quality of audio through telehealth medium. Test Reliability: Good PROVIDER COMMENTS/RECOMMENDATIONS: Hearing test results were reviewed with patient. Hearing relatively stable compared to 2022 testing (15 dB decline at 2000 and 3000 Hz left ear). Patient is a hearing aid candidate. Patient was counseled regarding realistic expectations for hearing aids, more specifically that hearing aids can make sounds louder but may not make speech more clear or understandable. Hearing conservation techniques were discussed and recommended. Hearing aid options were discussed, and the following devices ordered: [employer] [id number] [place] - S WOOD PRESERVING PLANT LABORER 5.0 - SIZE 2 - OPEN DOME - MEDIUM - CERUSTOP Phone Connectivity: streaming Patient expressed interest in a bedside sound generator. Ordered the following device in ROES: - TINNITUS MASKER [id number] PLAN: 1) Return to clinic in four weeks for 60 minute hearing aid fitting. 2) Recommend hearing evaluation annually or prn. Geraldine expressed understanding and is in agreement with the plan. /sarabjit/ Mihir Kerr [facility] Signed: 11/07/2024 09:09 YADIRA FERNANDO [facility]
--- OUTSIDE RECORDS SUMMARY | 2024-11-07 05:40 | XMS_ITS | Encounter Summary ---
Author Name [facility] [facility] [place] Organization [facility] [place] Address [address] [place] [address] Care Team Providers Care Product Architect Name Role Phone JUAN CARLOS BRENNAN Primary [...] MEDICARE ADVANTAGE MCR (WNR) Aug 30, 2022 [id number] GERDA ARAGON PATIENT [employer] MCR (WNR) MEDICARE ADVANTAGE MCR (WNR) Aug 30, 2022 [id number] [phone] GERDA ARAGON PATIENT MEDICARE (WNR) MEDICARE (M) PART A Jun 30, 2017 PART A [id number] GERDA ARAGON PATIENT MEDICARE (WNR) MEDICARE (M) PART B Jun 30, 2017 PART B [id number] GERDA ARAGON PATIENT MEDICARE (WNR) MEDICARE (M) PART A Jun 30, 2017 PART A [id number] GERDA ARAGON PATIENT MEDICARE (WNR) MEDICARE (M) PART B Jun 30, 2017 PART B [id number] GERDA ARAGON PATIENT [facility] MCR (WNR) MEDICARE ADVANTAGE [facility] (WNR) Sep 30, 2023 [id number] GERDA ARAGON PATIENT Selected Encounter This section includes the information on record at [place] for the Encounter. 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 Date/Time Primary/Secondary Diagnosis Diagnosis Name Provider Source Nov 07, 2024 10:03 AM PRIMARY Segmental and somatic dysfunction of cervical region [facility] Nov 07, 2024 10:03 AM SECONDARY Cervicalgia [facility] RICH [place] [facility] Nov 07, 2024 10:03 AM SECONDARY Oth intvrt disc degen, lumbosacr w discog bck & lw extrm pn [facility] R[facility] [place] [facility] Nov 07, 2024 10:03 AM SECONDARY Pain in thoracic spine [facility] R[facility] Nov 07, 2024 10:03 AM SECONDARY Segmental and somatic dysfunction of lumbar region [facility] Nov 07, 2024 10:03 AM SECONDARY Segmental and somatic dysfunction of pelvic region [facility] R[facility] Nov 07, 2024 10:03 AM SECONDARY Segmental and somatic dysfunction of [...] 20 appointments. The data comes from all [place] treatment facilities. Appointment Date/Time Appointment Type Appointme nt Facility Name Nov 10, 2024 02:00 PM AMBULATORY - MEDICINE [facility] Nov 13, 2024 02:30 PM AMBULATORY - MEDICINE [place] [facility] Nov 14, 2024 10:40 AM AMBULATORY - MEDICINE [facility] Nov 17, 2024 11:00 AM AMBULATORY - MEDICINE [place] [facility] Nov 23, 2024 01:45 PM AMBULATORY - MEDICINE [place] [facility] Nov 29, 2024 09:40 AM AMBULATORY - MEDICINE [facility] Dec 01, 2024 10:30 AM AMBULATORY - MEDICINE [facility] Dec 07, 2024 02:00 PM AMBULATORY - MEDICINE [facility] Dec 07, 2024 02:01 PM AMBULATORY - MEDICINE [place] [facility] Dec 13, 2024 09:40 AM AMBULATORY - MEDICINE [facility] Dec 13, 2024 10:30 AM AMBULATORY - MEDICINE [facility] Dec 25, 2024 03:30 PM AMBULATORY - MEDICINE [facility] Dec 27, 2024 09:40 AM AMBULATORY - MEDICINE [facility] December 28, 2024 10:00 AM AMBULATORY - MEDICINE [facility] January 08, 2025 11:30 AM AMBULATORY - MEDICINE [facility] January 08, 2025 12:00 PM AMBULATORY - MEDICINE [facility] January 08, 2025 12:01 PM AMBULATORY - MEDICINE [place] [facility] January 11, 2025 07:30 AM AMBULATORY - MEDICINE [place] [facility] January 16, 2025 12:15 PM AMBULATORY - MEDICINE [place] [facility] January 24, 2025 10:15 AM AMBULATORY - NONE [place] [facility] Vital Signs: All taken on the encounter date This section contains inpatient and outpatient Vital Signs collected on the date of the Encounter. Date/Time Temperature Pulse Blood Pressure Respiratory Rate SP02 Pain Height Weight Body Mass Index Source Nov 07, 2024 10:03 AM 98.1 75 142/93 [facility] Social History: Smoking Status (Most current) and Tobacco Use (All prior to encounter date) This section includes the most current, and the historical, smoking and tobacco- related health factors from the [place] facility where the Encounter took place. Current Smoking Status This section includes the most current smoking, or tobacco-related health factor, from the [place] facility where the Encounter took place. Date/Time Current Smoking Status Comment Facil ity January 21, 2024 10:00 AM VA-TOBACCO FORMER USER [facility] Tobacco Use History This section includes a history of the smoking, or tobacco-related health factors, that were collected on or before the date of the Encounter. The data comes from the [place] facility where the Encounter took place. Date/Time Smoking Status/Tobacco Use Comment F acility January 21, 2024 10:00 AM VA-TOBACCO QUIT 5 TO < 15 YRS [facility] January 27, 2023 12:31 PM [facility] January 27, 2023 12:31 PM VA-TOBACCO QUIT 15 YRS OR MORE [facility] Advance Directives: All historical and current Section Date Range: From patient's date of to the date document was created. This section includes ALL of a patient's completed or amended [place] Advance and Rescinded Directives. The entries below [...] the Encounter. The data comes from all [place] treatment facilities. Date/Time Radiology Report Provider Source Nov 17, 2024 10:59 AM MRI SHOULDER LEFT: GERDA ARAGON [id number] -1950 F Exm Date: NOV 17, 2024@10:59 Req Phys: JUAN CARLOS BRENNAN Loc: OUTSIDE PB-MRI (Req'g Loc) Img Loc: OUTSIDE PB-MRI Service: Unknown Screen: Patient is unable to answer or is unsure Screen Comment: OUTSIDE STUDY (Case [id number] COMPLETE) MRI SHOULDER LEFT (MRI Detailed) CPT:99753 Reason for Study: Exam imported from outside Clinical History: Original Data for Imported Study Patient Name: GERDA ARAGON Date: 1950 Sex: F Study Date: 11/17/24 Study Time: 10:59:27 Study Description: MR shoulder LT wo con* [id number] Referring Physician: UNKNOWN, UNKNOWN Series 1: 27 [...] files, description: COR T2 FS Acquisition site: [facility] Report Status: Electronically Filed Date Reported: DEC 06, 2024 Report: No report text Impression: No impression text VERIFIED BY: / *ELECTRONICALLY FILED* [facility] Oct 31, 2024 02:24 PM SPINE LUMBOSACRAL 2 OR 3 VIEWS: GERDA ARAGON [id number] -1950 F Exm Date: OCT 31, 2024@14:24 Req Phys: JUAN CARLOS BRENNAN Pat Loc: PB-MICHAEL PACT FOXTROT PRODUCTION LINE 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 WH (Req Img Loc: PB-XRAY [place] Service: [place] [address] (Case [id number] COMPLETE) SPINE LUMBOSACRAL 2 OR 3 VIEWS (RAD Detailed) CPT:45989 Reason for Study: low back pain Clinical History: Report Status: Verified Date Reported: OCT 31, 2024 Date Verified: OCT 31, 2024 Mortgage Loan Counselor E-Sig: Report: EXAM: Lumbar spine AP, lateral, [...] Primary Interpreting Staff: Antonio Avila M.D., Radiology (Mortgage Loan Counselor, no e-sig) /[facility]ON[facility] RHODES [place] [facility] Oct 31, 2024 02:24 PM SHOULDER,LEFT,2 OR MORE VIEWS: GERDA ARAGON [id number] -1950 F Exm Date: OCT 31, 2024@14:24 Req Phys: JUAN CARLOS BRENNAN Loc: PB-MICHAEL PACT JAMES MATHIAS WH (Req Img Loc: PB-XRAY [place] Service: [place] [address] (Case [id number] COMPLETE) SHOULDER,LEFT,2 OR MORE VIEWS (RAD Detailed) CPT:78284 Proc Modifiers : LEFT Reason for Study: left shoulder pain Clinical History: suspect rotator cuff tear Report Status: Verified Date Reported: OCT 31, 2024 Date Verified: OCT 31, 2024 Mortgage Loan Counselor E-Sig: Report: EXAM: Left shoulder 2 views. [...] Primary Interpreting Staff: Antonio Avila M.D., Radiology (Mortgage Loan Counselor, no e-sig) /ANTONIO RHODES [facility] CB Encounter Notes: All associated encounter notes This section contains the clinical notes associated to the Encounter. Date/Time Encounter Note(s) Provider Source Nov 07, 2024 09:57 AM CHIROPRACTIC NOTE: LOCAL TITLE: CHIROPRACTIC FOLLOW UP NOTE PB STANDARD TITLE: CHIROPRACTIC NOTE DATE OF NOTE: NOV 07, 2024@09:57 ENTRY DATE: NOV 07, 2024@09:57:07 AUTHOR: MORRIS RICH COSIGNER: URGENCY: STATUS: COMPLETED CHIROPRACTIC FOLLOW-UP VISIT Patient's language preference for health information: Vincentian Other Communication Methods Needed: SUBJECTIVE: The is a 74 year old FEMALE being seen in the Chiropractic clinic for follow-up visit. The [place] reports continued mid and lower back pain with slight relief after her adjustment last week. Today, [...] the restricted AROM. LUMBAR/THORACIC SPINE: MOVEMENT/POSTURE: The [place] ambulates without issue. 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 /sarabjit/ [facility] Signed: 11/07/2024 10:03 MORRIS RICH
--- OUTSIDE RECORDS SUMMARY | 2024-11-10 09:00 | XMS_ITS | Encounter Summary ---
Author Name [facility] [place] [facility] [place] Address [address] [place] [address] Care Team Providers Care Transmission Supervisor Name Role Phone JUAN CARLOS BRENNAN [...] MEDICARE ADVANTAGE MCR (WNR) Aug 30, 2022 [id number] [phone] GERDA ARAGON PATIENT [employer] MCR (WNR) MEDICARE ADVANTAGE MCR (WNR) Aug 30, 2022 [id number] GERDA ARAGON PATIENT MEDICARE (WNR) MEDICARE (M) PART A Jun 30, 2017 PART A [id number] GERDA ARAGON PATIENT MEDICARE (WNR) MEDICARE (M) PART B Jun 30, 2017 PART B [id number] [phone] GERDA ARAGON PATIENT MEDICARE (WNR) MEDICARE (M) PART A Jun 30, 2017 PART A [id number] GERDA ARAGON PATIENT MEDICARE (WNR) MEDICARE (M) PART B Jun 30, 2017 PART B [id number] GERDA ARAGON PATIENT [facility] (WNR) MEDICARE ADVANTAGE [facility] (WNR) Sep 30, 2023 [id number] [phone] GERDA ARAGON PATIENT Selected Encounter This section includes the information on record at [place] for the Encounter. Date/Time Encounter Type Encounter Description Reason Provider Source Nov 10, 2024 02:00 PM HOT OR COLD PACKS THERAPY PHYSICAL THERAPY ICD-10-CM M13.812 Other specified arthritis, left shoulder JONATHAN LAWTON [facility] Encounter Template Text not used by [place] Assessments - Encounter Diagnoses This section includes the primary and secondary diagnoses documented for the Encounter. Date/Time Primary/Secondary Diagnosis Diagnosis Name Provider Source Nov 10, 2024 02:46 PM PRIMARY Other specified arthritis, left shoulder DOUG LAWTON [facility] Plan of Treatment: Future Appointments (+ 6 months) and Future Tests (+/- 45 days) The Plan of Treatment section includes future care activities for the patient from all [place] treatmentfacilities. This section includes future appointments and future orders which are active, pending or scheduled. Future Appointments This section includes appointments that were scheduled to occur 6 months from the date of the Encounter, up to a maximum of 20 appointments. The data comes from all [place] treatment facilities. Appointment Date/Time Appointment Type Appointme nt Facility Name Nov 13, 2024 02:30 PM AMBULATORY - MEDICINE [facility] Nov 14, 2024 10:40 AM [facility] Nov 17, 2024 11:00 AM AMBULATORY - MEDICINE [facility] Nov 23, 2024 01:45 PM [facility] Nov 29, 2024 09:40 AM [facility] Dec 01, 2024 10:30 AM [facility] Dec 07, 2024 02:00 PM [facility]UL[facility] Dec 07, 2024 02:01 PM AMBULATORY - MEDICINE [facility] Dec 13, 2024 09:40 AM AMBULATORY - MEDICINE [facility] Dec 13, 2024 10:30 AM AMBULATORY - MEDICINE [facility] Dec 25, 2024 03:30 PM AMBULATORY - MEDICINE [facility] Dec 27, 2024 09:40 AM AMBULATORY - MEDICINE [facility] December 28, 2024 10:00 AM AMBULATORY - MEDICINE [facility] January 08, 2025 11:30 AM AMBULATORY - MEDICINE [facility] January 08, 2025 12:00 PM AMBULATORY - MEDICINE [facility] January 08, 2025 12:01 PM AMBULATORY - MEDICINE [facility] January 11, 2025 07:30 AM AMBULATORY - MEDICINE [facility] January 16, 2025 12:15 PM AMBULATORY - MEDICINE [facility] January 24, 2025 10:15 AM AMBULATORY - NONE [facility] Jan 31, 2025 09:40 AM AMBULATORY - MEDICINE [facility] Social History: Smoking Status (Most current) [...] 21, 2024 10:00 AM VA-TOBACCO FORMER USER [facility] Tobacco Use History This section includes a history of the smoking, or tobacco-related health factors, that were collected on or before the date of the Encounter. The data comes from the [place] facility where the Encounter took place. Date/Time Smoking Status/Tobacco Use Comment F acility January 21, 2024 10:00 AM VA-TOBACCO QUIT 5 TO < 15 YRS [facility] January 27, 2023 12:31 PM VA-TOBACCO FORMER USER [facility] January 27, 2023 12:31 PM VA-TOBACCO QUIT 15 YRS OR MORE [facility] Advance Directives: All historical and current Section Date Range: From patient's date of to the date document was created. This section includes ALL of a patient's completed or amended [place] Advance and Rescinded Directives. The entries below indicate that a directive exists for the patient, but an actual copy is not included with this document. The data comes from all [place] facilities. Date Advance Directives Provider Source May 14, 2022 ADVANCE DIRECTIVE BERTHA NAZARIO [facility] Feb 05, 2017 ADVANCE DIRECTIVE DISCUSSION PEG SORENSEN [facility] Radiology Reports: +/- 30 days of [...] 10:59 AM MRI SHOULDER LEFT: GERDA ARAGON [id number] -1950 F Exm Date: NOV 17, 2024@10:59 Req Phys: JUAN CARLOS BRENNAN Loc: OUTSIDE PB-MRI (Req'g Loc) Img Loc: OUTSIDE PB-MRI Service: Unknown Screen: Patient is unable to answer or is unsure Screen Comment: OUTSIDE STUDY (Case [id number] COMPLETE) MRI SHOULDER LEFT (MRI Detailed) CPT:49233 Reason for Study: Exam imported from outside Clinical History: Original Data for Imported Study Patient Name: GERDA ARAGON Date: 1950 Sex: F Study Date: 11/17/24 Study Time: 10:59:27 Study Description: MR shoulder LT wo con* [id number] Referring Physician: UNKNOWN, UNKNOWN Series 1: 27 [...] files, description: COR T2 FS Acquisition site: [facility] Report Status: Electronically Filed Date Reported: DEC 06, 2024 Report: No report text Impression: No impression text VERIFIED BY: / *ELECTRONICALLY FILED* EVERT RENDON [facility] Oct 31, 2024 02:24 PM SHOULDER,LEFT,2 OR MORE VIEWS: GERDA ARAGON [id number] -1950 F Exm Date: OCT 31, 2024@14:24 Req Phys: JUAN CARLOS BRENNAN Pat Loc: PB-MICHAEL PACT MAMTAOT DOOR PERSON WH (Req Img Loc: PB-XRAY [place] Service: [place] [address] (Case [id number] COMPLETE) SHOULDER,LEFT,2 OR MORE VIEWS (RAD Detailed) CPT:67765 Proc Modifiers : LEFT Reason for Study: left shoulder pain Clinical History: suspect rotator cuff tear Report Status: Verified Date Reported: OCT 31, 2024 Date Verified: OCT 31, 2024 Screen Printing Supervisor E-Sig: Report: EXAM: Left shoulder 2 views. [...] Primary Interpreting Staff: Antonio Avila M.D., Radiology (Screen Printing Supervisor, no e-sig) /ANTONIO RHODES [facility] Oct 31, 2024 02:24 PM SPINE LUMBOSACRAL 2 OR 3 VIEWS: GERDA ARAGON [id number] -1950 F Exm Date: OCT 31, 2024@14:24 Req Phys: JUAN CARLOS BRENNAN Pat Loc: PB-MICHAEL PACT MAMTAOT DOOR PERSON WH (Req Img Loc: PB-XRAY [place] Service: Unknown [facility] [place] [address] (Case [id number] COMPLETE) SPINE LUMBOSACRAL 2 OR 3 VIEWS (RAD Detailed) CPT:10826 Reason for Study: low back pain Clinical History: Report Status: Verified Date Reported: OCT 31, 2024 Date Verified: OCT 31, 2024 Screen Printing Supervisor E-Sig: Report: EXAM: Lumbar spine AP, lateral, [...] Primary Interpreting Staff: Antonio Avila M.D., Radiology (Screen Printing Supervisor, no e-sig) /ANTONIO RHODES [facility] Encounter Notes: All associated encounter notes This section contains the clinical notes associated to the Encounter. Date/Time Encounter Note(s) Provider Source Nov 10, 2024 02:04 PM PHYSICAL THERAPY N OTE: LOCAL TITLE: PHYSICAL THERAPY NOTE PB STANDARD TITLE: PHYSICAL THERAPY NOTE DATE OF NOTE: NOV 10, 2024@14:04 ENTRY DATE: NOV 10, 2024@14:04:32 AUTHOR: DOUG LAWTON COSIGNER: URGENCY: STATUS: COMPLETED Diagnosis: Other specified Arthritis, left Shoulder; right knee pain Subjective Matthews reports that her shoulder has been hurting since reinjuring in the beginning of August while she was moving a bedframe. She reports 7/10 pain in her left shoulder prior to treatment session. Matthews is schedule to see orthopedic surgeon on 11/13/2024. Objective QuickDASH score: 41% Upper Extremity: Left Strength ROM Shoulder Flexion 3-/5 110 Shoulder Abduction 3-/5 90 Shoulder External Rotation 3/5 60 Shoulder Internal Rotation 3/5 functional L PSIS Elbow Flexion 5/5 WFL Elbow Extension 5/5 WFL Wrist Flexion 5/5 WFL Wrist Extension 5/5 WFL Therapeutic exercise: shoulder sara into flexion, scaption, abduction 3 minutes each wand IR/ER 3 minutes Moist heat: -Thermx to left shoulder for 10 minutes, 34 degrees, 10 mmHg constant compression Assessment Reyes was very limited with her left shoulder range of motion today. Reassessment showed that her range of motion and strength in her shoulder has decreased since her previous physical therapy session. She had a positive drop arm test today. Exercises were kept to passive range of motion and kept to her tolerance. She reports that she is following up with an orthopedic surgeon next Wednesday. Due to the change in functional status since she has reinjured her shoulder. Reyes will be d/c'ed from this current physical therapy plan of care. She was encouraged to return to physical therapy should services be needed. Plan Will d/c from physical therapy services to follow up with orthopedic surgeon. Short term goals to be achieved in 4 weeks: 1) Patient will be (I) with home exercise. -Progress: met 2) Patient will decrease pain complaints by 25% or more in order to improve ADL performance. -Progress: partially met 3) Patient will increase UE strength by 1/2 grade or more overall in order to decrease pain and improve ADLs. -Progress: met continuous churn buttermaker goals to be achieved in 8 weeks: 1) Patient will have WNL bilateral shoulder ROM to decrease pain and improve functional mobility. -Progress: not met 2) Patient will increase UE strength by +1 Manual Muscle Grade or more overall. -Progress: not met 3) Patient will be decrease his [...] and modalities as indicated. Total Treatment Time: 40 minutes Therapeutic exercise: 15 minutes Hot/cold pack: 15 minutes Visit /sarabjit/ Doug Lawton PT, DPT [facility] Signed: 11/10/2024 14:46 [facility]
--- OUTSIDE RECORDS SUMMARY | 2024-11-10 10:32 | XMS_ITS | Encounter Summary ---
Author Name [facility] [place] Address [address] [place] [address] Care Team Providers Care Diesel Maintenance Electrician Name Role Phone JUAN CARLOS BRENNAN Primary [...] MEDICARE ADVANTAGE MCR (WNR) Aug 30, 2022 [id number] [phone] GERDA ARAGON PATIENT [employer] MCR (WNR) MEDICARE ADVANTAGE MCR (WNR) Aug 30, 2022 [id number] [phone] GERDA ARAGON PATIENT MEDICARE (WNR) MEDICARE (M) PART A Jun 30, 2017 PART A [id number] GERDA ARAGON PATIENT MEDICARE (WNR) MEDICARE (M) PART B Jun 30, 2017 PART B [id number] GERDA ARAGON PATIENT MEDICARE (WNR) MEDICARE (M) PART A Jun 30, 2017 PART A [id number] GERDA ARAGON PATIENT MEDICARE (WNR) MEDICARE (M) PART B Jun 30, 2017 PART B [id number] GERDA ARAGON PATIENT [facility] MCR (WNR) MEDICARE ADVANTAGE MCR (WNR) Sep 30, 2023 [id number] GERDA ARAGON PATIENT Selected Encounter This section includes the information on [place] at [place] for the Encounter. Date/Time Encounter Type Encounter Description Reason Pro vider Source Nov 10, 2024 03:32 PM Outpatient Encounter ADMIN PAT ACTIVTIES (MASNONCT) IHE Encounter Template Text not used by [place] Plan of Treatment: Future Appointments (+ 6 months) and Future Tests (+/- 45 days) The Plan of Treatment section includes future care activities for the patient from all [place] treatmentfacilities. This section includes future appointments and future orders which are active, pending or scheduled. Future Appointments This section includes appointments that were scheduled to occur 6 months from the date of the Encounter, up to a maximum of 20 appointments. The data comes from all [place] treatment facilities. Appointment Date/Time Appointment Type Appointme nt Facility Name Nov 13, 2024 02:30 PM AMBULATORY - MEDICINE [facility] Nov 14, 2024 10:40 AM [facility] Nov 17, 2024 11:00 AM AMBULATORY - MEDICINE [facility] Nov 23, 2024 01:45 PM AMBULATORY - MEDICINE [facility] Nov 29, 2024 09:40 AM [facility] Dec 01, 2024 10:30 AM [facility] Dec 07, 2024 02:00 PM [facility] [place] [facility] [facility] Dec 07, 2024 02:01 PM AMBULATORY - MEDICINE [facility] Dec 13, 2024 09:40 AM [facility] [place] [facility] [facility] Dec 13, 2024 10:30 AM [facility] Dec 25, 2024 03:30 PM [facility] Dec 27, 2024 09:40 AM [facility] December 28, 2024 10:00 AM AMBULATORY - MEDICINE [facility] January 08, 2025 11:30 AM AMBULATORY - MEDICINE [facility] January 08, 2025 12:00 PM AMBULATORY - MEDICINE [facility] January 08, 2025 12:01 PM AMBULATORY - MEDICINE [facility] January 11, 2025 07:30 AM AMBULATORY - MEDICINE [facility] January 16, 2025 12:15 PM AMBULATORY - MEDICINE [facility] January 24, 2025 10:15 AM AMBULATORY - NONE [facility] Jan 31, 2025 09:40 AM AMBULATORY - MEDICINE [facility] Social History: Smoking Status (Most current) and Tobacco Use (All prior to encounter date) This section includes the most current, and the historical, smoking and tobacco- related health factors from the [place] facility where the Encounter took place. Current Smoking Status This section includes the most current smoking, or tobacco-related health factor, from the [place] facility where the Encounter took place. Date/Time Current Smoking Status Comment Facil ity January 21, 2024 10:00 AM VA-TOBACCO FORMER USER [facility] Tobacco Use History This section includes a history of the smoking, or tobacco-related health factors, that were collected on or before the date of the Encounter. The data comes from the [place] facility where the Encounter took place. Date/Time Smoking Status/Tobacco Use Comment F acility January 21, 2024 10:00 AM VA-TOBACCO QUIT 5 TO < 15 YRS [facility] [...] ALL of a patient's completed or amended [place] Advance and Rescinded Directives. The entries below indicate that a directive exists for the patient, but an actual copy is not included with this document. The data comes from all [place] facilities. Date Advance Directives Provider Source May [...] the Encounter. The data comes from all [place] treatment facilities. Date/Time Radiology Report Provider Source Nov 17, 2024 10:59 AM MRI SHOULDER LEFT: GERDA ARAGON [id number] -1950 F Exm Date: NOV 17, 2024@10:59 Req Phys: JUAN CARLOS BRENNAN Loc: OUTSIDE PB-MRI (Req'g Loc) Img Loc: OUTSIDE PB-MRI Service: Unknown Screen: Patient is unable to answer or is unsure Screen Comment: OUTSIDE STUDY (Case [id number] COMPLETE) MRI SHOULDER LEFT (MRI Detailed) CPT:33015 Reason for Study: Exam imported from outside Clinical History: Original Data for Imported Study Patient Name: GERDA ARAGON Date: 1950 Sex: F Study Date: 11/17/24 Study Time: 10:59:27 Study Description: MR shoulder LT wo con* [id number] Referring Physician: UNKNOWN, UNKNOWN Series 1: 27 [...] files, description: COR T2 FS Acquisition site: [facility] Report Status: Electronically Filed Date Reported: DEC 06, 2024 Report: No report text Impression: No impression text VERIFIED BY: / *ELECTRONICALLY FILED* EVERT SANTIAGO [facility] Oct 31, 2024 02:24 PM SPINE LUMBOSACRAL 2 OR 3 VIEWS: GERDA ARAGON [id number] -1950 F Exm Date: OCT 31, 2024@14:24 Req Phys: JUAN CARLOS BRENNAN Loc: PB-MICHAEL JOSE RAMIREZ MACHINE BINDING FOLDER WH (Req Img Loc: PB-XRAY [place] Service: [place] [address] (Case [id number] COMPLETE) SPINE LUMBOSACRAL 2 OR 3 VIEWS (RAD Detailed) CPT:93990 Reason for Study: low back pain Clinical History: Report Status: Verified Date Reported: OCT 31, 2024 Date Verified: OCT 31, 2024 Basketball Commentator E-Sig: Report: EXAM: Lumbar spine AP, lateral, [...] Primary Interpreting Staff: Antonio Avila M.D., Radiology (Basketball Commentator, no e-sig) /ANTONIO RHODES [facility] Oct 31, 2024 02:24 PM SHOULDER,LEFT,2 OR MORE VIEWS: GERDA ARAGON [id number] -1950 F Exm Date: OCT 31, 2024@14:24 Req Phys: JUAN CARLOS BRENNAN Loc: PB-MICHAEL PACT JAMES MACHINE BINDING FOLDER WH (Req Img Loc: PB-XRAY [place] Service: [place] [address] (Case [id number] COMPLETE) SHOULDER,LEFT,2 OR MORE VIEWS (RAD Detailed) CPT:28734 Proc Modifiers : LEFT Reason for Study: left shoulder pain Clinical History: suspect rotator cuff tear Report Status: Verified Date Reported: OCT 31, 2024 Date Verified: OCT 31, 2024 Basketball Commentator E-Sig: Report: EXAM: Left shoulder 2 views. [...] Primary Interpreting Staff: Antonio Avila M.D., Radiology (Basketball Commentator, no e-sig) /ANTONIO RHODES [facility] Encounter Notes: All associated encounter notes This section contains the clinical notes associated to the Encounter. Date/Time Encounter Note(s) Provider Source Nov 10, 2024 03:32 PM GENERAL MEDICINE N OTE: LOCAL TITLE: General Note PB STANDARD TITLE: GENERAL MEDICINE NOTE DATE OF NOTE: NOV 10, 2024@15:32 ENTRY DATE: NOV 10, 2024@15:32:25 AUTHOR: KAREN FORD EXP COSIGNER: URGENCY: STATUS: COMPLETED Rec'd hearing aids certified in [facility]. has upcoming appt for fitting. /sarabjit/ ANKIT KATHLEEN [facility] Signed: 11/10/2024 15:33 KAREN FORD [facility]
--- OUTSIDE RECORDS SUMMARY | 2024-11-14 05:40 | XMS_ITS | Encounter Summary ---
Author Name [facility] [place] [facility] [place] [facility] [facility] [place] Address [address] [place] [address] Care Team Providers Care Wireless Consultant Name Role Phone JUAN CARLOS BRENNAN Primary [...] MEDICARE ADVANTAGE MCR (WNR) Aug 30, 2022 [id number] GERDA ARAGON PATIENT HUMANA MCR (WNR) MEDICARE ADVANTAGE MCR (WNR) Aug 30, 2022 [id number] GERDA ARAGON PATIENT MEDICARE (WNR) MEDICARE (M) PART A Jun 30, 2017 PART A [id number] [phone] GERDA ARAGON PATIENT MEDICARE (WNR) MEDICARE (M) PART B Jun 30, 2017 PART B [id number] [phone] GERDA ARAGON PATIENT MEDICARE (WNR) MEDICARE (M) PART A Jun 30, 2017 PART A [id number] GERDA ARAGON PATIENT MEDICARE (WNR) MEDICARE (M) PART B Jun 30, 2017 PART B [id number] GERDA ARAGON PATIENT WELLCARE MCR (WNR) MEDICARE ADVANTAGE [facility] (WNR) Sep 30, 2023 [id number] GERDA ARAGNO PATIENT Selected Encounter This section includes the information on record at [place] for the Encounter. Date/Time Encounter Type Encounter Description Reason Provider Source Nov 14, 2024 10:40 AM CHIROPRACT MAN 3-4 [employer] ICD-10-CM M99.01 Segmental and somatic dysfunction of cervical region MORRIS RICH Encounter Template Text not used by [facility] Assessments - Encounter Diagnoses This section includes the primary and secondary diagnoses documented for the Encounter. Date/Time Primary/Secondary Diagnosis Diagnosis Name Provider Source Nov 14, 2024 10:28 AM PRIMARY Segmental and somatic dysfunction of cervical region [facility]RIS RICH [facility] Nov 14, 2024 10:28 AM SECONDARY Cervicalgia [facility]IS R[facility] Nov 14, 2024 10:28 AM SECONDARY Oth intvrt disc degen, lumbosacr w discog bck & lw extrm pn [facility]ORRIS RICH [facility] Nov 14, 2024 10:28 AM SECONDARY Pain in thoracic spine MOR[facility]IS RI[facility] Nov 14, 2024 10:28 AM SECONDARY Segmental and somatic dysfunction of lumbar region MORRIS RICH [facility] Nov 14, 2024 10:28 AM SECONDARY Segmental and somatic dysfunction of pelvic region MORRIS RICH [facility] Nov 14, 2024 10:28 AM SECONDARY Segmental and somatic dysfunction of [...] 20 appointments. The data comes from all [facility]. Appointment Date/Time Appointment Type Appointme nt Facility Name Nov 17, 2024 11:00 AM AMBULATORY - [place]ICINE [place] [facility] Nov 23, 2024 01:45 PM AMBULATORY - [place]IC[place] [facility] Nov 29, 2024 09:40 AM [facility] [place] [facility] Dec 01, 2024 10:30 AM [facility] - MEDICINE [facility] Dec 07, 2024 02:00 PM [facility] [place] [facility] [facility] Dec 07, 2024 02:01 PM AMB[facility]ORY - [place]IC[place] [facility] Dec 13, 2024 09:40 AM AM[facility]UL[facility]ORY - MEDICINE [facility] Dec 13, 2024 10:30 AM [facility] [place] [facility] [facility] Dec 25, 2024 03:30 PM [facility] [place] [facility] [facility] Dec 27, 2024 09:40 AM [facility]ORY - MEDICINE [facility] December 28, 2024 10:00 AM AMBULATORY - MEDICINE [facility] January 08, 2025 11:30 AM [facility] [place] [facility] January 08, 2025 12:00 PM AMBUL[facility]ORY - MEDICINE [facility] January 08, 2025 12:01 PM AMBULATORY - [place]ICINE [place] [facility] January 11, 2025 07:30 AM AMBULATORY - MEDICINE [place] [facility] January 16, 2025 12:15 PM AMBULATORY - MEDICINE [place] [facility] January 24, 2025 10:15 AM AMBULATORY - NONE [place] [facility] Jan 31, 2025 09:40 AM AMBULATORY - MEDICINE [facility] Jan 31, 2025 10:30 AM AMBULATORY - MEDICINE [facility] Feb 14, 2025 09:00 AM AMBULATORY - MEDICINE [facility] Active, Pending, and Scheduled Orders This section includes a listing of several types of active, pending, and scheduled orders, including clinic medications orders, diagnostic test orders, procedure orders and consult orders; where the start date of the order is 45 days before the date of the Encounter or 45 days after the date of theEncounter. The data comes from all [facility]. Test Date/Time Test Type Test Details Facility Name Dec 27, 2024 03:42 PM Consult Order [facility] [id number] Cons Marketing Analyst's Choice [facility] Lab Results: +/- 30 days of the encounter This section includes the Chemistry and Hematology Lab Results on record with [place] for the patient. Radiology Reports and Pathology Reports are provided separately, in subsequent sections. Lab Results This section contains the Chemistry/Hematology Results that were resulted 30 days before or 30 daysafter the date of the Encounter. Date/Time Source Result Type Result - Unit Interpretation Reference Range Specimen Type Comment Dec 13, 2024 10:59 AM [facility] DRUG SCREEN URINE-inhouse (PB) URINE Specimen Type: URINE No comment entered. Ordering Provider: JUAN CARLOS BRENNAN Report Released Date/Time: Dec 13, 2024 10:48 AM Reporting Lab: [place] [facility] [address] [place] [address] [address] Performing Lab: [place] [facility] [address] [facility] [id number] METHADONE Negative Negative OPIATES (PB) Negative Negative COCAINE... Negative Negative THC(Marijuana... Negative Negative BENZODIAZEPINE (PB) Negative Negative AMPHETAMINE... Negative Negative CREATININE URINE/OTHERS 94.26 mg/dL OXYCODONE (SHFSI-KUQ-FA) Negative Negati ve BUPRENORPHINE (STL-PB-MA) Negative ng/mL Negative ETHANOL URINE <10 mg/dL L 0-20 FENTANYL, URINE (PB) Negative ng/mL Social History: Smoking Status (Most current) and Tobacco Use (All prior to encounter date) This section includes the most current, and the historical, smoking and tobacco- related health factors from the [place] facility where the Encounter took place. Current Smoking Status This section includes the most current smoking, or tobacco-related health factor, from the [place] facility where the Encounter took place. Date/Time Current Smoking Status Comment Facil ity January 21, 2024 10:00 AM VA-TOBACCO FORMER USER [facility] Tobacco Use History This section includes a history of the smoking, or tobacco-related health factors, that were collected on or before the date of the Encounter. The data comes from the [place] facility where the Encounter took place. Date/Time Smoking Status/Tobacco Use Comment F acility January 21, 2024 10:00 AM [place]-TOBACCO QUIT 5 TO < 15 YRS [facility] January 27, 2023 12:31 PM VA-TOBACCO FORMER USER [facility] January 27, 2023 12:31 PM VA-TOBACCO QUIT 15 YRS OR MORE [facility] Advance Directives: All historical and current Section Date Range: From patient's date of to the date document was created. This section includes ALL of a patient's completed or amended [place] Advance and Rescinded Directives. The entries below indicate that a directive exists for the patient, but an actual copy is not included with this document. The data comes from all [place] facilities. Date Advance Directives Provider Source May 14, 2022 ADVANCE DIRECTIVE BERTHA NAZARIO [facility] Feb 05, 2017 ADVANCE DIRECTIVE DISCUSSION PEG SORENSEN [facility] Radiology Reports: +/- 30 days [...] the Encounter. The data comes from all [place] treatment facilities. Date/Time Radiology Report Provider Source Dec 13, 2024 10:10 AM RIBS,RIGHT+CHEST 3 +VIEWS: GERDA ARAGON [id number] -1950 F Exm Date: DEC 13, 2024@10:10 Req Phys: MORRIS RICH Loc: PB-[facility]HA[facility] (Req'g Loc) Img Loc: PB-XRAY [place] Service: [place] [address] (Case [id number] COMPLETE) RIBS,RIGHT+CHEST 3+VIEWS (RAD Detailed) CPT:34235 Proc Modifiers : RIGHT Reason for Study: [place] [facility] [place] Clinical History: Report Status: Verified Date Reported: DEC 13, 2024 Date Verified: DEC 13, 2024 Jig And Fixture Maker E-Sig: Report: Chest and right RIBS. Lungs hyperinflated with emphysematous changes. There is apical pleural thickening. No infiltrates, effusions or pneumothoraces. Heart normal size. Plaque thoracic aorta. No definite fracture involving the right ribs. Generalized osteopenia. Impression: 1. COPD with apical pleural thickening 2. No definite acute bony change involving the right ribs 3. Recommend follow-up rib survey if symptoms do not improve to rule out occult fracture Primary Interpreting Staff: THAD ZHANG, RADIOLOGIST (Jig And Fixture Maker, no e-sig) /THAD Rogers [facility] Dec 13, 2024 09:55 AM SPINE LUMBOSACRAL 2 OR 3 VIEWS: GERDA ARAGON NADIA [id number] -1950 F Exm Date: DEC 13, 2024@09:55 Req Phys: MORRIS IRCH Loc: PB-[facility] (Req'g Loc) Img Loc: [facility] Service: [place] [address] (Case [id number] COMPLETE) SPINE LUMBOSACRAL 2 OR 3 VIEWS (RAD Detailed) CPT:03077 Reason for Study: fell off stepladder Clinical History: Report Status: Verified Date Reported: DEC 13, 2024 Date Verified: DEC 13, 2024 Jig And Fixture Maker E-Sig: Report: Lumbar spine 3 views. There are degenerative changes with osteophytes and involvement of the facets. Narrowing the L1-2, L2-3 and L3-4 disc spaces. No fracture or dislocation. No evidence of bony destruction. Grade 1 spondylolisthesis L4 on L5. Scoliosis. Plaque in the abdominal aorta. Impression: 1. Moderate degenerative arthritis 2. Narrowing L1-2, L2-3 and L3-4 disc spaces 3. Bcsg-ah-owmlrzjr scoliosis 4. Grade 1 spondylolisthesis L4 on L5 Primary Interpreting Staff: THAD ZHANG, RADIOLOGIST (Jig And Fixture Maker, no e-sig) /THAD Rogers [facility] Dec 13, 2024 09:55 AM SPINE THORACIC 2 V IEWS: MAHESHDWAYNEGERDATYLER ZUNIGA [id number] -1950 F Exm Date: DEC 13, 2024@09:55 Req Phys: MORRIS RICH Loc: PB-[facility] (Req'g Loc) Img Loc: [facility] Service: [place] [address] (Case [id number] COMPLETE) SPINE THORACIC 2 VIEWS (RAD Detailed) CPT:81980 Reason for Study: fell off stepladder Clinical History: Report Status: Verified Date Reported: DEC 13, 2024 Date Verified: DEC 13, 2024 Jig And Fixture Maker E-Sig: Report: Thoracic spine 3 views including swimmer's view. No evidence of a fracture or dislocation. Narrowing several of the disc spaces. There are degenerative changes. Generalized osteopenia. Scoliosis. Grade 1 spondylolisthesis C3 on C4 and C4 on C5 seen in the swimmer's view. Mild retrolisthesis C2 on C3. Narrowing C3-4, C5-6 and C6-7 disc spaces. Degenerative changes cervical spine. Impression: 1. Moderate degenerative arthritis 2. Narrowing several the disc spaces 3. Mild scoliosis 4. Grade 1 spondylolisthesis C3 on C4 and C4 on C5 5. Mild retrolisthesis C2 on C3 6. Moderate degenerative arthritis cervical spine Primary Interpreting Staff: THAD ZHANG, RADIOLOGIST (Jig And Fixture Maker, no e-sig) /THAD Rogers [facility] Nov 17, 2024 10:59 AM MRI SHOULDER LEFT: GERDA ARAGON [id number] -1950 F Exm Date: NOV 17, 2024@10:59 Req Phys: JUAN CARLOS BRENNAN Loc: OUTSIDE PB-MRI (Req'g Loc) Img Loc: OUTSIDE PB-MRI Service: Unknown Screen: Patient is unable to answer or is unsure Screen Comment: OUTSIDE STUDY (Case [id number] COMPLETE) MRI SHOULDER LEFT (MRI Detailed) CPT:10553 Reason for Study: Exam imported from outside Clinical History: Original Data for Imported Study Patient Name: GERDA ARAGON Date: 1950 Sex: F Study Date: 11/17/24 Study Time: 10:59:27 Study Description: MR shoulder LT wo con* [id number] Referring Physician: UNKNOWN, UNKNOWN Series 1: 27 [...] files, description: COR T2 FS Acquisition site: [facility] Report Status: Electronically Filed Date Reported: DEC 06, 2024 Report: No report text Impression: No impression text VERIFIED BY: / *ELECTRONICALLY FILED* [place] [facility] Oct 31, 2024 02:24 PM SPINE LUMBOSACRAL 2 OR 3 VIEWS: MAHESHGERDA NADIA [id number] -1950 F Exm Date: OCT 31, 2024@14:24 Req Phys: JUAN CARLOS BRENNAN Loc: PB-MICHAEL PACT [facility] [employer] REPA[employer] [facility] (Req Img Loc: [facility] Service: [place] [address] (Case [id number] COMPLETE) SPINE LUMBOSACRAL 2 OR 3 VIEWS (RAD Detailed) CPT:45179 Reason for Study: low back pain Clinical History: Report Status: Verified Date Reported: OCT 31, 2024 Date Verified: OCT 31, 2024 Jig And Fixture Maker E-Sig: Report: EXAM: Lumbar spine AP, lateral, [...] Primary Interpreting Staff: Antonio Avila M.D., Radiology (Jig And Fixture Maker, no e-sig) /ANTONIO RHODES [facility] Oct 31, 2024 02:24 PM SHOULDER,LEFT,2 OR MORE VIEWS: GERDA ARAGON [id number] -1950 F Exm Date: OCT 31, 2024@14:24 Req Phys: JUAN CARLOS BRENNAN Pat Loc: PB-MICHAEL PACT [employer] [employer] REPAIR[employer] [facility] (Req Img Loc: [facility] Service: [place] [address] (Case [id number] COMPLETE) SHOULDER,LEFT,2 OR MORE VIEWS (RAD Detailed) CPT:26800 Proc Modifiers : LEFT Reason for Study: left shoulder pain Clinical History: suspect rotator cuff tear Report Status: Verified Date Reported: OCT 31, 2024 Date Verified: OCT 31, 2024 Jig And Fixture Maker E-Sig: Report: EXAM: Left shoulder 2 views. [...] Primary Interpreting Staff: Antonio Avila M.D., Radiology (Jig And Fixture Maker, no e-sig) /ANTONIO RHODES [facility] Encounter Notes: All associated encounter notes This section contains the clinical notes associated to the Encounter. Date/Time Encounter Note(s) Provider Source Nov 14, 2024 10:20 AM CHIROPRACTIC NOTE: LOCAL TITLE: CHIROPRACTIC FOLLOW UP NOTE STANDARD TITLE: CHIROPRACTIC NOTE DATE OF NOTE: NOV 14, 2024@10:20 ENTRY DATE: NOV 14, 2024@10:20:18 AUTHOR: MORRIS RICH COSIGNER: URGENCY: STATUS: COMPLETED CHIROPRACTIC FOLLOW-UP VISIT Patient's language preference for health information: Lao Other Communication Methods Needed: SUBJECTIVE: [place] is a 74 year old FEMALE being seen in the Chiropractic clinic for follow-up visit. [place] states the T/L region of her back is very painful. She states she is scheduled for a left shoulder MRI for Wednesday, but she reports decreasing left shoulder pain and better range of motion. Today, the rates her pain level as [...] the restricted AROM. LUMBAR/THORACIC SPINE: MOVEMENT/POSTURE: [place] ambulates without issue. SEGMENTAL DYSFUNCTION: Joint dysfunction [...] and back pain, we will treat The [place] once every two weeks for six treatments. [...] exercise program and to commit to a chcf exercise plan. /sarabjit/ [facility] Signed: 11/14/2024 10:27 [facility]
--- OUTSIDE RECORDS SUMMARY | 2024-11-23 08:45 | XMS_ITS | Encounter Summary ---
Author Name [facility] [place] [facility] [place] [facility] [facility] [place] Address [address] [place] [address] Care Team Providers Care Collections Manager Name Role Phone JUAN CARLOS BRENNAN [...] MEDICARE ADVANTAGE MCR (WNR) Aug 30, 2022 [id number] GERDA ARAGON PATIENT [employer] MCR (WNR) MEDICARE ADVANTAGE MCR (WNR) Aug 30, 2022 [id number] GERDA ARAGON PATIENT MEDICARE (WNR) MEDICARE (M) PART A Jun 30, 2017 PART A [id number] GERDA ARAGON PATIENT MEDICARE (WNR) MEDICARE (M) PART B Jun 30, 2017 PART B [id number] GERDA ARAGON PATIENT MEDICARE (WNR) MEDICARE (M) PART A Jun 30, 2017 PART A [id number] GERDA ARAGON PATIENT MEDICARE (WNR) MEDICARE (M) PART B Jun 30, 2017 PART B [id number] GERDA ARAGON PATIENT [facility] (WNR) MEDICARE ADVANTAGE [facility] (WNR) Sep 30, 2023 [id number] GERDA ARAGON PATIENT Selected Encounter This section includes the information on record at [place] for the Encounter. Date/Time Encounter Type Encounter Description Reason Provider Source Nov 23, 2024 01:45 PM COMPRE OPH EXAM NEW PT 1/> OPTOMETRY ICD-10-CM H43.392 Other vitreous opacities, left eye ROBERSON,ISIS S IHE Encounter Template Text not used by [facility] Assessments - Encounter Diagnoses This section includes the primary and secondary diagnoses documented for the Encounter. Date/Time Primary/Secondary Diagnosis Diagnosis Name Provider Source Nov 23, 2024 02:12 PM PRIMARY Other vitreous opacities, left eye ROBERSON,ISIS S [place] [facility] Nov 23, 2024 02:12 PM SECONDARY Cataract extraction status, left eye ROBERSON,ISIS S [place] [facility] Nov 23, 2024 02:12 PM SECONDARY Cataract extraction status, right eye ROBERSON,ISIS S [place] [facility] Nov 23, 2024 02:12 PM SECONDARY Myopia, bilateral ROBERSON,ISIS S [place] [facility] Nov 23, 2024 02:12 PM SECONDARY Other vitreous opacities, right eye ROBERSON,ISIS S [place] [facility] Nov 23, 2024 02:12 PM SECONDARY Presbyopia ROBERSON,ISIS S [place] [facility] Nov 23, 2024 02:12 PM SECONDARY Regular astigmatism, bilateral ROBERSON,ISIS S [place] [facility] Plan of Treatment: Future Appointments [...] The data comes from all [place] treatment [facility]. Appointment Date/Time Appointment Type Appointme nt Facility Name Nov 29, 2024 09:40 AM AMBULATORY - MEDICINE [facility] [place] [facility] Dec 01, 2024 10:30 AM [facility] [place] [facility] Dec 07, 2024 02:00 PM AMBULATORY - MEDICINE [place] [place] [facility] Dec 07, 2024 02:01 PM AMBULATORY - MEDICINE [place] [facility] Dec 13, 2024 09:40 AM AMBULATORY - [facility]ICINE [place] [facility] Dec 13, 2024 10:30 AM AMBULATORY - MEDICINE [facility] [place] [facility] Dec 25, 2024 03:30 PM AMBULATORY - MEDICINE [facility] [place] [facility] Dec 27, 2024 09:40 AM AM[facility] December 28, 2024 10:00 AM AMBULATORY - [facility]ICINE [facility] [place] [facility] January 08, 2025 11:30 AM AMBULATORY - MEDICINE [facility] [place] [facility] January 08, 2025 12:00 PM AMBULATORY - MEDICINE [place] [facility] January 08, 2025 12:01 PM AMBULATORY - MEDICINE [place] [facility] January 11, 2025 07:30 AM AMBULATORY - MEDICINE [place] [facility] January 16, 2025 12:15 PM AMBULATORY - MEDICINE [place] [facility] January 24, 2025 10:15 AM AMBULATORY - NONE [place] [facility] Jan 31, 2025 09:40 AM AMBULATORY - MEDICINE [facility] [place] [facility] Jan 31, 2025 10:30 AM AMBULATORY - [facility]ICINE [place] [facility] Feb 14, 2025 09:00 AM AMBULATORY - MEDICINE [facility] Feb 14, 2025 09:40 AM AMBULATORY - MEDICINE [facility] Mar 06, 2025 09:30 AM AMBULATORY - MEDICINE [facility] Active, Pending, and Scheduled Orders This section includes a listing of several types of active, pending, and scheduled orders, including clinic medications orders, diagnostic test orders, procedure orders and consult orders; where the start date of the order is 45 days before the date of the Encounter or 45 days after the date of theEncounter. The data comes from all [facility]. Test Date/Time Test Type Test Details Facility Name Dec 27, 2024 03:42 PM Consult Order [facility] MASSAGE THERAPY [id number] Cons Conditioning Machine Operator's Choice [facility] Lab Results: +/- 30 days of [...] Type Comment Dec 13, 2024 10:59 AM [facility] DRUG SCREEN URINE-inhouse (PB) URINE Specimen Type: URINE No comment entered. Ordering Provider: JUAN CARLOS BRENNAN Report Released Date/Time: Dec 13, 2024 10:48 AM Reporting Lab: [place] [facility] [address] [facility] [place] [facility] [id number] Performing Lab: [place] [facility] [address] [facility] [address] METHADONE Negative Negative OPIATES (PB) Negative Negative COCAINE... Negative Negative THC(Marijuana... Negative Negative BENZODIAZEPINE (PB) Negative Negative AMPHETAMINE... Negative Negative CREATININE URINE/OTHERS 94.26 mg/dL OXYCODONE ([id number]) Negative Negati ve BUPRENORPHINE (STL-PB-MA) Negative ng/mL Negative ETHANOL URINE <10 mg/dL L 0-20 FENTANYL, URINE (PB) Negative ng/mL Advance Directives: All historical and current Section [...] 14, 2022 ADVANCE DIRECTIVE BERTHA NAZARIO [facility] Feb 05, 2017 ADVANCE DIRECTIVE DISCUSSION PEG SORENSEN [facility] Radiology Reports: +/- 30 days [...] 10:10 AM RIBS,RIGHT+CHEST 3 +VIEWS: GERDA ARAGON [id number] -1950 F Exm Date: DEC 13, 2024@10:10 Req Phys: MORRIS RICH Pat Loc: PB-MICHAEL [facility]IRO (Req'g Loc) Img Loc: PB-XRAY [facility] Service: [place] [address] (Case [id number] COMPLETE) RIBS,RIGHT+CHEST 3+VIEWS (RAD Detailed) CPT:19170 Proc Modifiers : RIGHT Reason for Study: fell from stepladd Clinical History: Report Status: Verified Date Reported: DEC 13, 2024 Date Verified: DEC 13, 2024 Turnaround Planner E-Sig: Report: Chest and right RIBS. Lungs [...] fracture Primary Interpreting Staff: THAD ZHANG, RADIOLOGIST (Turnaround Planner, no e-sig) /THAD Rogers [facility] Dec 13, 2024 09:55 AM SPINE LUMBOSACRAL 2 OR 3 VIEWS: GERDA ARAGON [id number] -1950 F Exm Date: DEC 13, 2024@09:55 Req Phys: MORRIS RICH Loc: PB-MICHAEL CHIRO (Req'g Loc) Img Loc: PB-XRAY IVOR Service: [place] [address] (Case [id number] COMPLETE) SPINE LUMBOSACRAL 2 OR 3 VIEWS (RAD Detailed) CPT:07112 Reason for Study: fell off stepladder Clinical History: Report Status: Verified Date Reported: DEC 13, 2024 Date Verified: DEC 13, 2024 Turnaround Planner E-Sig: Report: Lumbar spine 3 views. There are degenerative changes with osteophytes and involvement of the facets. Narrowing the L1-2, L2-3 and L3-4 disc spaces. No fracture or dislocation. No evidence of bony destruction. Grade 1 spondylolisthesis L4 on L5. Scoliosis. Plaque in the abdominal aorta. Impression: 1. Moderate degenerative arthritis 2. Narrowing L1-2, L2-3 and L3-4 disc spaces 3. Gbzb-bf-mrdiyppq scoliosis 4. Grade 1 spondylolisthesis L4 on L5 Primary Interpreting Staff: THAD ZHANG RADIOLOGIST (Turnaround Planner, no e-sig) /THAD [place] [facility] [place] [facility] Dec 13, 2024 09:55 AM SPINE THORACIC 2 V IEWS: GERDA ARAGON [id number] -1950 F Exm Date: DEC 13, 2024@09:55 Req Phys: MORRIS RICH Loc: PB-MICHAEL [facility] (Req'g Loc) Img Loc: PB-XRAY IV[facility] Service: [place] [address] (Case [id number] COMPLETE) SPINE THORACIC 2 VIEWS (RAD Detailed) CPT:42167 Reason for Study: fell off stepladder Clinical History: Report Status: Verified Date Reported: DEC 13, 2024 Date Verified: DEC 13, 2024 Turnaround Planner E-Sig: Report: Thoracic spine 3 views including [...] arthritis cervical spine Primary Interpreting Staff: THAD ZHANG RADIOLOGIST (Turnaround Planner, no e-sig) /THAD [place] [facility] Nov 17, 2024 10:59 AM MRI SHOULDER LEFT: GERDA ARAGON [id number] -1950 F Exm Date: NOV 17, 2024@10:59 Req Phys: JUAN CARLOS BRENNAN Loc: OUTSIDE PB-MRI (Req'g Loc) Img Loc: OUTSIDE PB-MRI Service: Unknown Screen: Patient is unable to answer or is unsure Screen Comment: OUTSIDE STUDY (Case [id number] COMPLETE) MRI SHOULDER LEFT (MRI Detailed) CPT:09106 Reason for Study: Exam imported from outside Clinical History: Original Data for Imported Study Patient Name: GERDA ARAGON Date: 1950 Sex: F Study Date: 11/17/24 Study Time: 10:59:27 Study Description: MR shoulder LT wo con* [id number] Referring Physician: UNKNOWN, UNKNOWN Series 1: 27 [...] COR T2 FS Acquisition site: [facility] Report Status: Electronically Filed Date Reported: DEC 06, 2024 Report: No report text Impression: No impression text VERIFIED BY: / *ELECTRONICALLY FILED* [place] [facility] Oct 31, 2024 02:24 PM SHOULDER,LEFT,2 OR MORE VIEWS: GERDA ARAGON [id number] -1950 F Exm Date: OCT 31, 2024@14:24 Req Phys: JUAN CARLOS BRENNAN Loc: PB-MICHAEL PACT [employer] (Req Img Loc: PB-XRAY IV[facility] Service: [place] [address] (Case [id number] COMPLETE) SHOULDER,LEFT,2 OR MORE VIEWS (RAD Detailed) CPT:32096 Proc Modifiers : LEFT Reason for Study: left shoulder pain Clinical History: suspect rotator cuff tear Report Status: Verified Date Reported: OCT 31, 2024 Date Verified: OCT 31, 2024 Turnaround Planner E-Sig: Report: EXAM: Left shoulder 2 views. [...] Primary Interpreting Staff: Antonio Avila M.D., Radiology (Turnaround Planner, no e-sig) /ANTONIO RHODES [facility] Oct 31, 2024 02:24 PM SPINE LUMBOSACRAL 2 OR 3 VIEWS: GERDA ARAGON [id number] -1950 F Exm Date: OCT 31, 2024@14:24 Req Phys: JUAN CARLOS BRENNAN Loc: PB-MICHAEL PACT [facility] (Req Img Loc: PB-XRAY IVOR Service: [place] [address] (Case [id number] COMPLETE) SPINE LUMBOSACRAL 2 OR 3 VIEWS (RAD Detailed) CPT:60779 Reason for Study: low back pain Clinical History: Report Status: Verified Date Reported: OCT 31, 2024 Date Verified: OCT 31, 2024 Turnaround Planner E-Sig: Report: EXAM: Lumbar spine AP, lateral, [...] Primary Interpreting Staff: Antonio Avila M.D., Radiology (Turnaround Planner, no e-sig) /ANTONIO RHODES [facility] Encounter Notes: All associated encounter notes This section contains the clinical notes associated to the Encounter. Date/Time Encounter Note(s) Provider Source Nov 23, 2024 02:13 PM OPTOMETRY CONSULT: LOCAL TITLE: OPTOMETRY CONSULTS PB STANDARD TITLE: OPTOMETRY CONSULT DATE OF NOTE: NOV 23, 2024@14:13 ENTRY DATE: NOV 23, 2024@14:13:14 AUTHOR: ISIS ROBERSON EXP COSIGNER: URGENCY: STATUS: COMPLETED Fundus photos to document findings Vitreous:floaters ou Maculae:wnl ou Vessels:wnl ou ONH:dist margins ou C/D:0.3/0.3 Periphery:flat and intact ou /sarabjit/ Isis Roberson OD Vp Software Support, [facility] Signed: 11/23/2024 14:13 ISIS ROBERSON [facility] Nov 23, 2024 02:12 PM OPTOMETRY CONSULT: LOCAL TITLE: OPTOMETRY CONSULTS PB STANDARD TITLE: OPTOMETRY CONSULT DATE OF NOTE: NOV 23, 2024@14:12 ENTRY DATE: NOV 23, 2024@14:12:46 AUTHOR: ISIS ROBERSON EXP COSIGNER: URGENCY: STATUS: COMPLETED OCT of maculae today to monitor for changes. [place] Thickness OD:269 OS:268 mild RPE changes OD mild RPE changes OS (-) CNVM seen today OD (-) CNVM seen today OS OCT results discussed with patient. Monitor for changes. /sarabjit/ Isis Roberson OD Vp Software Support, [facility] Signed: 11/23/2024 14:13 ISIS ROBERSON [facility] Nov 23, 2024 02:04 PM EYE NOTE: LOCAL TITLE: EYEGLASS PRESCRIPTION NOTE PB STANDARD TITLE: EYE NOTE DATE OF NOTE: NOV 23, 2024@14:04 ENTRY DATE: NOV 23, 2024@14:05:09 AUTHOR: ISIS ROBERSON EXP COSIGNER: URGENCY: STATUS: COMPLETED DATE OF LAST EYE EXAM:NOV 23, 2024 -0.25-2.13b889 -0.75-1.62a290 +2.50 add LENS MATERIAL: LENS TYPE: PAL - Previous wearer Other Add Ons: Photochromic lenses included due to medical condition Additional Comments: plastic lenses /sarabjit/ Isis Roberson, OD Vp Software Support, [facility] Signed: 11/23/2024 14:05 ISIS ROBERSON [facility] Nov 23, 2024 01:32 PM OPHTHALMOLOGY E & M NOTE: LOCAL TITLE: OPHTHALMIC EXAM PB STANDARD TITLE: OPHTHALMOLOGY E & M NOTE DATE OF NOTE: NOV 23, 2024@13:32 ENTRY DATE: NOV 23, 2024@13:32:42 AUTHOR: BETH SORENSEN EXP COSIGNER: URGENCY: STATUS: COMPLETED SUBJECTIVE: 74 year old seen in clinic. CHIEF COMPLAINT: pt is new to this eye clinic. glasses from last exam. floaters ou x6 weeks. Last eye exam: 12/14/22 [facility] 11/21 dfe Surgery: none since last exam Eye medications: gen teal ou 1x daily Lab: Hgb A1C: HGA1C 5.6 % 01/21/2024 11:00 Diabetic: pt states no ALLERGIES: ALBUTEROL, CODEINE, LISINOPRIL VISUAL ACUITY OD: 20/25-1 ph: 25-0 OS: 20/25-0 ph: No Improv With present glasses pupils rapd - Dilated with 1% Tropicamide @ 1:41 Pt Ed on SE of DFE Post myd shield provided Pt voiced understanding WEARING OD:plano -2.00 X 115 OS:-0.75 -1.25 X 050 ADD: +2.50 Lens Type: Progressive Intraocular Pressures (iCare) R 8 L 9 Oct(mac) & Photos obtained today ou /sarabjit/ BETH SORENSEN [employer] Signed: 11/23/2024 13:46 BETH SORENSEN [facility] Nov 23, 2024 07:26 AM OPHTHALMOLOGY E & M NOTE: LOCAL TITLE: OPHTHALMIC EXAM PB STANDARD TITLE: OPHTHALMOLOGY E & M NOTE DATE OF NOTE: NOV 23, 2024@07:26 ENTRY DATE: NOV 23, 2024@07:26:31 AUTHOR: ISIS ROBERSON EXP COSIGNER: URGENCY: STATUS: COMPLETED SUBJECTIVE: 74 year old seen in clinic. CHIEF COMPLAINT: pt is new to this eye clinic. glasses from last exam. floaters ou x6 weeks. Last eye exam: 12/14/22 [facility] 11/21 dfe Surgery: none since last exam Eye medications: gen teal ou 1x daily Lab: Hgb A1C: HGA1C 5.6 % 01/21/2024 11:00 Diabetic: pt states no ALLERGIES: ALBUTEROL, CODEINE, LISINOPRIL VISUAL ACUITY OD: 20/25-1 ph: 25-0 OS: 20/25-0 ph: No Improv With present glasses pupils rapd - Dilated with 1% Tropicamide @ 1:41 Pt Ed on SE of DFE Post myd shield provided Pt voiced understanding WEARING OD:plano -2.00 X 115 OS:-0.75 -1.25 X 050 ADD: +2.50 Lens Type: Progressive Intraocular Pressures (iCare) R 8 L 9 Oct(mac) & Photos obtained today ou (Copied Tech note above, Agree with findings, continue Doctor note below.) SUBJECTIVE CC:74F c/o floaters x 6 weeks in both eyes. Pt states she also needs to get her glasses updated. OHX: CROW:as above Hab RX:as above LDFE:11/21 Injuries:- Surgeries:+cat sx ou, ypc ou Oc Meds:- Glc:- DR:- AMD:- MHX: DM:- HTN:+ HrtDis:- LungDis:+ Cancer:- See Cover sheet for complete with allergies FmHx: Glc - AMD - OBJECTIVE: 1% Tropicamide 1 gtt ou @ (pt dilated by tech as above) Pt educated on SE of DFE/Post myd shield given ENTERING: VA:as above Pupils:as above CVF:FTFC ou EOMs:FROM ou REFRACTION: OD:-0.25-2.73g845 20/25 OS:-0.75-1.65a107 20/25 +2.50 add 20/25 ou SLEx: Adnexa/Lids/Lashes:mild sup dermatochalasis ou Tear Film:narrow tear film ou Conj:tr diffuse inj ou Cornea:cl ou, -staining ou Sclera:wnl ou Iris:wnl ou A/C:d/q ou Lens:pciol ou DFE: Vitreous:floaters ou Maculae:wnl ou Vessels:wnl ou ONH:dist margins ou C/D:0.3/0.3 Periphery:flat and intact ou OCT of maculae today to monitor for changes. [place] Thickness OD:269 OS:268 mild RPE changes OD mild RPE changes OS (-) CNVM seen today OD (-) CNVM seen today OS OCT results discussed with patient. Monitor for changes. Fundus photos to document findings ASSESSMENT: 1)Vitreous floaters ou 2)Pseudophakia ou 3)Myopia, reg Astig, Presbyopia ou PLAN: 1)Cont to monitor 2)Cont to monitor 3)Spec Rx given OD:-0.25-2.27u553 20/25 OS:-0.75-1.63g969 20/25 +2.50 add 20/25 ou Ordered new [facility] glasses today, plastic, progressive, photochromatic lenses RTC PRN /es/ Isis Roberson, JEFE Vp Software Support, [facility] Signed: 11/23/2024 14:15 ISIS ROBERSON [facility]
--- OUTSIDE RECORDS SUMMARY | 2024-11-29 04:40 | XMS_ITS | Encounter Summary ---
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 Name Role Phone JUAN CARLOS [...] MEDICARE ADVANTAGE MCR (WNR) Aug 30, 2022 [id number] GERDA ARAGON PATIENT HUMANA MCR (WNR) MEDICARE ADVANTAGE MCR (WNR) Aug 30, 2022 [id number] GERDA ARAGON PATIENT MEDICARE (WNR) MEDICARE (M) PART A Jun 30, 2017 PART A [id number] GERDA AARGON PATIENT MEDICARE (WNR) MEDICARE (M) PART B Jun 30, 2017 PART B [id number] GERDA ARAGON PATIENT MEDICARE (WNR) MEDICARE (M) PART A Jun 30, 2017 PART A [id number] GERDA ARAGON PATIENT MEDICARE (WNR) MEDICARE (M) PART B Jun 30, 2017 PART B [id number] GERDA ARAGON PATIENT WELLCARE MCR (WNR) MEDICARE ADVANTAGE [facility] (WNR) Sep 30, 2023 [id number] GERDA ARAGON PATIENT Selected Encounter This section includes the information on record at [place] for the Encounter. Date/Time Encounter Type Encounter Description Reason Provider Source Nov 29, 2024 09:40 AM CHIROPRACT MAN 3-4 [employer] ICD-10-CM M99.01 Segmental and somatic dysfunction of cervical region MORRIS RICH Encounter Template Text not used by [facility] Assessments - Encounter Diagnoses This section includes the primary and secondary diagnoses documented for the Encounter. Date/Time Primary/Secondary Diagnosis Diagnosis Name Provider Source Nov 29, 2024 09:45 AM PRIMARY Segmental and somatic dysfunction of cervical region M[facility]RIS RICH [facility] Nov 29, 2024 09:45 AM SECONDARY Cervicalgia [facility] R[facility] Nov 29, 2024 09:45 AM SECONDARY Oth intvrt disc degen, lumbosacr w discog bck & lw extrm pn [place]IS RICH [place] [facility] Nov 29, 2024 09:45 AM SECONDARY Pain in thoracic spine [facility]ORRIS RICH [facility] Nov 29, 2024 09:45 AM SECONDARY Segmental and somatic dysfunction of lumbar region [facility] RICH [facility] Nov 29, 2024 09:45 AM SECONDARY Segmental and somatic dysfunction of pelvic region [facility]RIS RICH [facility] Nov 29, 2024 09:45 AM SECONDARY Segmental and somatic [...] 20 appointments. The data comes from all [facility]. Appointment Date/Time Appointment Type Appointme nt Facility Name Dec 01, 2024 10:30 AM [facility] [place] [facility] Dec 07, 2024 02:00 PM [facility] [place] [facility] Dec 07, 2024 02:01 PM [place] [place] [facility] Dec 13, 2024 09:40 AM [facility] [place] [facility] Dec 13, 2024 10:30 AM [facility] [place] [facility] Dec 25, 2024 03:30 PM [facility] [place] [facility] Dec 27, 2024 09:40 AM [facility] - MEDICINE [facility] December 28, 2024 10:00 AM [facility] [place] [facility] January 08, 2025 11:30 AM [facility] [place] [facility] January 08, 2025 12:00 PM AMBULATORY - MEDICINE [facility] January 08, 2025 12:01 PM [facility] [place] [facility] January 11, 2025 07:30 AM [facility] [place] [facility] January 16, 2025 12:15 PM [facility] [place] [facility] January 24, 2025 10:15 AM [place] [facility] Jan 31, 2025 09:40 AM [facility] [place] [facility] Jan 31, 2025 10:30 AM [facility] [place] [facility] Feb 14, 2025 09:00 AM [facility]BULATORY - MEDICINE [facility] Feb 14, 2025 09:40 AM AMBULATORY - MEDICINE [facility] Mar 06, 2025 09:30 AM AMBULATORY - MEDICINE [facility] Mar 06, 2025 10:00 AM AMBULATORY - MEDICINE [facility] Active, Pending, and Scheduled Orders This section includes a listing of several types of active, pending, and scheduled orders, including clinic medications orders, diagnostic test orders, procedure orders and consult orders; where the start date of the order is 45 days before the date of the Encounter or 45 days after the date of theEncounter. The data comes from all [facility]. Test Date/Time Test Type Test Details Facility Name Dec 27, 2024 03:42 PM Consult Order [facility] [id number] Cons Consultative Sales Associate's Choice [facility] Lab Results: +/- 30 days of the encounter This section includes the Chemistry and Hematology Lab Results on record with [facility] for the patient. Radiology Reports and Pathology Reports are provided separately, in subsequent sections. Lab Results This section contains the Chemistry/Hematology Results that were resulted 30 days before or 30 daysafter the date of the Encounter. Date/Time Source Result Type Result - Unit Interpretation Reference Range Specimen Type Comment Dec 27, 2024 09:45 AM [facility] TSH (MA-PB) SERUM Specimen Type: SERUM No comment entered. Ordering Provider: JUAN CARLOS BRENNAN Report Released Date/Time: Dec 27, 2024 09:44 AM Reporting Lab: [place] [facility] [address] [place] [address] Performing Lab: [place] [facility] [address] [place] [address] TSH 1.171 u[IU]/mL 0.47-5 Dec 27, 2024 09:45 AM [facility] HGA1C BLOOD Specimen Type: BLOOD No comment entered. Ordering Provider: JUAN CARLOS BRNENAN Report Released Date/Time: Dec 27, 2024 09:44 AM Reporting Lab: [place] [facility] [address] [place] [address] Performing Lab: [place] [facility] [address] [place] [address] HGA1C 5.5 4.0-6.0 Dec 27, 2024 09:45 AM [facility] CHOLESTEROL PANEL (PB) PLASMA Specimen Type: P SELAM Comment: LDL calculation invalid when Triglyceride exceeds 250 mg/dl Ordering Provider: JUAN CARLOS BRENNAN Report Released Date/Time: Dec 27, 2024 09:44 AM Reporting Lab: [place] [facility] [address] [place] [address] Performing Lab: [place] [facility] [address] [place] [address] CHOLESTEROL 198 mg/dL 0-200 TRIGLYCERIDE 429 mg/dL H 0-150 CALCULATED LDL comment mg/dL HDL(New) 41.3 mg/dL H >40 HDL % OF TOTAL CHOLESTEROL (PB) 20.9 >25 DIRECT LDL(MA) 119.7 mg/dL H 0-99.9 Dec 27, 2024 09:45 AM [facility] VITAMIN D, 25-HYDROXY SERUM Specimen Type: SE RUM No comment entered. Ordering Provider: JUAN CARLOS BRENNAN Report Released Date/Time: Dec 27, 2024 09:44 AM Reporting Lab: [place] [facility] [address] [place] [address] Performing Lab: [place] [facility] [address] [place] [facility] VITAMIN D, 25-HYDROXY 33.7 ng/mL 30-96 Dec 27, 2024 09:45 AM [facility] URINALYSIS (STL-PB) URINE Specimen Type: URIN E No comment entered. Ordering Provider: JUAN CARLOS BRENNAN Report Released Date/Time: Dec 27, 2024 09:44 AM Reporting Lab: [place] [facility] [address] [place] [facility] Performing Lab: [place] [facility] [address] [place] [phone] URINE COLOR Light Yellow Yellow U.BILIRUBIN NEGATIVE mg/dL Negative U.PH 6.5 5.0-8.0 APPEARANCE CLEAR Clear U.NITRITE NEGATIVE mg/dL Negative URN.GLUCOSE NORMAL mg/dL Negative URN.PROTEIN NEGATIVE mg/dL URN.UROBILINOGEN NORMAL mg/dL Normal URN.BLOOD NEGATIVE mg/dL Negative-Trace URN.KETONES NEGATIVE mg/dL Negative-Trac e URN.LEUK.EST. NEGATIVE Negative-Trace URN.SPECIFIC GRAVITY 1.017 1.005-1.029 Dec 27, 2024 09:45 AM [facility] COMPREHENSIVE METABOLIC PANEL PLASMA Specimen Type: PLASMA Comment: LDL calculation invalid when Triglyceride exceeds 250 mg/dl Ordering Provider: JUAN CARLOS BRENNAN Report Released Date/Time: Dec 27, 2024 09:44 AM Reporting Lab: [place] [facility] [address] [place] [address] Performing Lab: [place] [facility] [address] [place] [facility] CREATININE 0.65 mg/dL 0.6-1.1 UREA NITROGEN 9 mg/dL 9-25 GLUCOSE 86 mg/dL 72-99 SODIUM 143 meq/L 136-145 POTASSIUM 3.9 meq/L 3.5-5 CHLORIDE 107 meq/L 98-107 CARBON DIOXIDE 23 meq/L 22-31 CALCIUM 10.2 mg/dL 8.4-10.4 PROTEIN 7.3 g/dL 6-8.6 ALBUMIN 4.6 g/dL 3.4-5 TOTAL BILIRUBIN 0.6 mg/dL 0.2-1.2 ALKALINE PHOSPHATASE 105 U/L 40-150 AST/SGOT 22 U/L 5-34 ALT/SGPT 15 U/L 8-40 EGFR (CKD-EPI 2020) 93 Dec 27, 2024 09:45 AM [facility] CBC BLOOD Specimen Type: BLOOD No comment entered. Ordering Provider: JUAN CARLOS BRENNAN Report Released Date/Time: Dec 27, 2024 09:44 AM Reporting Lab: [place] [facility] [address] [place] [facility] [address] Performing Lab: [place] [facility] [address] [facility] [address] WBC 9.1 10*3/uL 3.6-11.2 RBC 5.17 10*6/uL H 3.60-5.00 HGB 16.2 g/dL H 11.0-14.9 HCT 47.3 H 32.6-43.4 MCV 91.5 fL 80.0-100.0 MCH 31.3 pg 27.0-34.0 MCHC 34.2 g/dL 33.0-36.0 PLT 325 10*3/uL 150-400 MPV 9.3 fL 7.5-11.2 RDW 11.9 11.8-15.1 LYMPHOCYTES, AUTO % 25.7 MONOCYTES, AUTO % 10.7 NEUTROPHILS, AUTO % 55.7 EOSINOPHILS, AUTO % 4.9 BASOPHILS, AUTO % 2.1 LYMPHOCYTES, ABSOLUTE 2.33 10*3/uL 0.77- 4.50 MONOCYTES, ABSOLUTE 0.97 10*3/uL H 0.19-0. 8 NEUTROPHILS, ABSOLUTE 5.04 10*3/uL 2.10- 8.00 EOSINOPHILS, ABSOLUTE 0.44 10*3/uL 0.00- 0.60 BASOPHILS, ABSOLUTE 0.19 10*3/uL 0.00-0. 20 IMMATURE GRANS, AUTO % 0.9 IMMATURE GRANS, AUTO ABS 0.08 10*3/uL H 0. 00-0.05 Dec 13, 2024 10:59 AM [facility] DRUG SCREEN URINE-inhouse (PB) URINE Specimen Type: URINE No comment entered. Ordering Provider: JUAN CARLOS BRENNAN Report Released Date/Time: Dec 13, 2024 10:48 AM Reporting Lab: [place] [facility] [address] [facility] [place] [facility] [address] Performing Lab: [place] [facility] [address] [place] [facility] [address] METHADONE Negative Negative OPIATES (PB) Negative Negative COCAINE... Negative Negative THC(Marijuana... Negative Negative BENZODIAZEPINE (PB) Negative Negative AMPHETAMINE... Negative Negative CREATININE URINE/OTHERS 94.26 mg/dL OXYCODONE ([id number]) Negative Negati ve BUPRENORPHINE (STL-PB-MA) Negative ng/mL Negative ETHANOL URINE <10 mg/dL L 0-20 FENTANYL, URINE (PB) Negative ng/mL Vital Signs: All taken on the encounter date This section contains inpatient and outpatient Vital Signs collected on the date of the Encounter. Date/Time Temperature Pulse Blood Pressure Respiratory Rate SP02 Pain Height Weight Body Mass Index Source Nov 29, 2024 09:40 AM 98.2 85 139/94 [facility] Social History: Smoking Status (Most current) and Tobacco Use (All prior to encounter date) This section includes the most current, and the historical, smoking and tobacco- related health factors from the [place] facility where the Encounter took place. Current Smoking Status This section includes the most current smoking, or tobacco-related health factor, from the [place] facility where the Encounter took place. Date/Time Current Smoking Status Comment Hank ity January 21, 2024 10:00 AM [place]-TOBACCO FORMER USER [facility] Tobacco Use History This section includes a history of the smoking, or tobacco-related health factors, that were collected on or before the date of the Encounter. The data comes from the [place] facility where the Encounter took place. Date/Time Smoking Status/Tobacco Use Comment F acility January 21, 2024 10:00 AM [place]-TO[place]AC[place] QUIT 5 TO < 15 YRS [facility] January 27, 2023 12:31 PM VA-TOBACCO FORMER USER [facility] January 27, 2023 12:31 PM VA-TOBACCO QUIT 15 YRS OR MORE [facility] Advance Directives: All historical and current Section Date Range: From patient's date of to the date document was created. This section includes ALL of a patient's completed or amended [place] Advance and Rescinded Directives. The entries below indicate that a directive exists for the patient, but an actual copy is not included with this document. The data comes from all [place] facilities. Date Advance Directives Provider Source May 14, 2022 ADVANCE DIRECTIVE BERTHA NAZARIO [facility] Feb 05, 2017 ADVANCE DIRECTIVE DISCUSSION PEG SORENSEN [facility] Radiology Reports: +/- 30 days of [...] the Encounter. The data comes from all [place] treatment facilities. Date/Time Radiology Report Provider Source December 28, 2024 10:29 AM CHEST X-RAY, 2 VIE WS: GERDA ARAGON [id number] -1950 F Exm Date: DECEMBER 28, 2024@10:29 Req Phys: JUAN CARLOS BRENNAN Loc: PB-MICHAEL PACT FOXTROT CYTOTECHNOLOGIST WH (Req Img Loc: PB-XRAY [place] Service: [place] [address] (Case [id number] COMPLETE) CHEST X-RAY, 2 VIEWS (RAD Detailed) CPT:56467 Reason for Study: screening Clinical History: surgery clearance Report Status: Verified Date Reported: DECEMBER 28, 2024 Date Verified: DECEMBER 28, 2024 Hospice Care Sales Consultant E-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 Lungs hyperinflated with emphysematous changes. Apical pleural thickening. There are no infiltrates or effusions. Heart normal size. Plaque thoracic aorta. Degenerative changes thoracic spine. Findings similar previous study dated 08/28/2024. Impression: 1. COPD with apical pleural thickening 2. Findings similar previous study Primary Interpreting Staff: THAD ZHANG, RADIOLOGIST (Hospice Care Sales Consultant, no e-sig) /THAD Rogers [facility] Dec 13, 2024 10:10 AM RIBS,RIGHT+CHEST 3 +VIEWS: GERDA ARAGONE [id number] -1950 F Exm Date: DEC 13, 2024@10:10 Req Phys: MORRIS RICH Pat Loc: PB-MICHAEL CHIRO (Req'g Loc) Img Loc: PB-XRAY [place] Service: [place] [address] (Case [id number] COMPLETE) RIBS,RIGHT+CHEST 3+VIEWS (RAD Detailed) CPT:50227 Proc Modifiers : RIGHT Reason for Study: fell from stepladd Clinical History: Report Status: Verified Date Reported: DEC 13, 2024 Date Verified: DEC 13, 2024 Hospice Care Sales Consultant E-Sig: Report: Chest and right RIBS. Lungs [...] fracture Primary Interpreting Staff: THAD ZHANG, RADIOLOGIST (Hospice Care Sales Consultant, no e-sig) /THAD Rogers [facility] Dec 13, 2024 09:55 AM SPINE LUMBOSACRAL 2 OR 3 VIEWS: GERDA ARAGON [id number] -1950 F Exm Date: DEC 13, 2024@09:55 Req Phys: MORRIS RICH Loc: PB-MICHAEL CHIRO (Req'g Loc) Img Loc: PB-XRAY [place] Service: [place] [address] (Case [id number] COMPLETE) SPINE LUMBOSACRAL 2 OR 3 VIEWS (RAD Detailed) CPT:27407 Reason for Study: fell off stepladder Clinical History: Report Status: Verified Date Reported: DEC 13, 2024 Date Verified: DEC 13, 2024 Hospice Care Sales Consultant E-Sig: Report: Lumbar spine 3 views. There are degenerative changes with osteophytes and involvement of the facets. Narrowing the L1-2, L2-3 and L3-4 disc spaces. No fracture or dislocation. No evidence of bony destruction. Grade 1 spondylolisthesis L4 on L5. Scoliosis. Plaque in the abdominal aorta. Impression: 1. Moderate degenerative arthritis 2. Narrowing L1-2, L2-3 and L3-4 disc spaces 3. Zuux-uf-obhbftpi scoliosis 4. Grade 1 spondylolisthesis L4 on L5 Primary Interpreting Staff: THAD ZHANG, RADIOLOGIST (Hospice Care Sales Consultant, no e-sig) /THAD Rogers [place] [facility] Dec 13, 2024 09:55 AM SPINE THORACIC 2 V IEWS: GERDA ARAGON [id number] -1950 F Exm Date: DEC 13, 2024@09:55 Req Phys: MORRIS RICH Loc: PB-MICHAEL CHIRO (Req'g Loc) Img Loc: PB-XRAY [place] Service: [place] [address] (Case [id number] COMPLETE) SPINE THORACIC 2 VIEWS (RAD Detailed) CPT:16211 Reason for Study: fell off stepladder Clinical History: Report Status: Verified Date Reported: DEC 13, 2024 Date Verified: DEC 13, 2024 Hospice Care Sales Consultant E-Sig: Report: Thoracic spine 3 views including [...] spine Primary Interpreting Staff: THAD ZHANG, RADIOLOGIST (Hospice Care Sales Consultant, no e-sig) /THAD Rogers [place] [facility] Nov 17, 2024 10:59 AM MRI SHOULDER LEFT: GERDA ARAGON [id number] -1950 F Exm Date: NOV 17, 2024@10:59 Req Phys: JUAN CARLOS BRENNAN Loc: OUTSIDE PB-MRI (Req'g Loc) Img Loc: OUTSIDE PB-MRI Service: Unknown Screen: Patient is unable to answer or is unsure Screen Comment: OUTSIDE STUDY (Case [id number] COMPLETE) MRI SHOULDER LEFT (MRI Detailed) CPT:77675 Reason for Study: Exam imported from outside Clinical History: Original Data for Imported Study Patient Name: GERDA ARAGON Date: 1950 Sex: F Study Date: 11/17/24 Study Time: :59:27 Study Description: MR shoulder LT wo con* [id number] Referring Physician: UNKNOWN, UNKNOWN Series 1: 27 [...] files, description: COR T2 FS Acquisition site: [facility] Report Status: Electronically Filed Date Reported: DEC 06, 2024 Report: No report text Impression: No impression text VERIFIED BY: / *ELECTRONICALLY FILED* [place] [facility] Oct 31, 2024 02:24 PM SHOULDER,LEFT,2 OR MORE VIEWS: GERDA ARAGON [id number] -1950 F Exm Date: OCT 31, 2024@14:24 Req Phys: JUAN CARLOS BRENNAN Loc: PB-MICHAEL PACT FOXTROT CYTOTECHNOLOGIST [facility] (Req Img Loc: PB-XRAY [place] Service: Unknown [facility] [place] [address] (Case [id number] COMPLETE) SHOULDER,LEFT,2 OR MORE VIEWS (RAD Detailed) CPT:84132 Proc Modifiers : LEFT Reason for Study: left shoulder pain Clinical History: suspect rotator cuff tear Report Status: Verified Date Reported: OCT 31, 2024 Date Verified: OCT 31, 2024 Hospice Care Sales Consultant E-Sig: Report: EXAM: Left shoulder 2 views. [...] Primary Interpreting Staff: Antonio Avila M.D., Radiology (Hospice Care Sales Consultant, no e-sig) /ANTONIO RHODES [place] [facility] Oct 31, 2024 02:24 PM SPINE LUMBOSACRAL 2 OR 3 VIEWS: GERDA ARAGON [id number] -1950 F Exm Date: OCT 31, 2024@14:24 Req Phys: JUAN CARLOS BRENNAN Loc: PB-MICHAEL PACT JAMES MATHIAS WH (Req Img Loc: PB-XRAY [place] Service: [place] [address] (Case [id number] COMPLETE) SPINE LUMBOSACRAL 2 OR 3 VIEWS (RAD Detailed) CPT:68836 Reason for Study: low back pain Clinical History: Report Status: Verified Date Reported: OCT 31, 2024 Date Verified: OCT 31, 2024 Hospice Care Sales Consultant E-Sig: Report: EXAM: Lumbar spine AP, lateral, [...] Primary Interpreting Staff: Antonio Avila M.D., Radiology (Hospice Care Sales Consultant, no e-sig) /ANTONIO RHODES [facility] Encounter Notes: All associated encounter notes This section contains the clinical notes associated to the Encounter. Date/Time Encounter Note(s) Provider Source Nov 29, 2024 09:33 AM CHIROPRACTIC NOTE: LOCAL TITLE: CHIROPRACTIC FOLLOW UP NOTE PB STANDARD TITLE: CHIROPRACTIC NOTE DATE OF NOTE: NOV 29, 2024@09:33 ENTRY DATE: NOV 29, 2024@09:33:05 AUTHOR: MORRIS RICH COSIGNER: URGENCY: STATUS: COMPLETED CHIROPRACTIC FOLLOW-UP VISIT Patient's language preference for health information: Ukrainian Other Communication Methods Needed: SUBJECTIVE: The Montezuma is a 74 year old FEMALE being seen in the Chiropractic clinic for follow-up visit. The Montezuma states her back is painful at the T/L region, which she attributes to tiling her bathroom over the past week. She states her shoulders are feeling somewhat better compared to previously. Today, the rates her pain level [...] and back pain, we will treat The Montezuma once every two weeks for six treatments. [...] exercise program and to commit to a skilled nursing exercise plan. /sarabjit/ [facility] Signed: 11/29/2024 09:44 MORRIS RICH
--- OUTSIDE RECORDS SUMMARY | 2024-12-07 09:00 | XMS_ITS | Encounter Summary ---
Author Name [facility] [place] [facility] [place] [facility] [place] Address [address] [place] [address] Care Team Providers Care Windlasser Name Role Phone JUAN CARLOS BRENNAN Primary [...] MEDICARE ADVANTAGE MCR (WNR) Aug 30, 2022 [id number] [phone] GERDA ARAGON PATIENT [employer] MCR (WNR) MEDICARE ADVANTAGE MCR (WNR) Aug 30, 2022 [id number] GERDA ARAGON PATIENT MEDICARE (WNR) MEDICARE (M) PART A Jun 30, 2017 PART A [id number] GERDA ARAGON PATIENT MEDICARE (WNR) MEDICARE (M) PART B Jun 30, 2017 PART B [id number] [phone] GERDA ARAGON PATIENT MEDICARE (WNR) MEDICARE (M) PART A Jun 30, 2017 PART A [id number] GERDA ARAGON PATIENT MEDICARE (WNR) MEDICARE (M) PART B Jun 30, 2017 PART B [id number] GERDA ARAGON PATIENT [facility] (WNR) MEDICARE ADVANTAGE [facility] (WNR) Sep 30, 2023 [id number] GERDA ARAGON PATIENT Selected Encounter This section includes the information on record at [place] for the Encounter. Date/Time Encounter Type Encounter Description Reason Provider Source Dec 07, 2024 02:00 PM TELEHEALTH FACILITY FEE AUDIOLOGY ICD-10-CM Z46.1 Encounter for fitting and adjustment of hearing aid JOSSELYN FERNANDO RA [facility] Encounter Template Text not used by [place] Assessments - Encounter Diagnoses This section includes the primary and secondary diagnoses documented for the Encounter. Date/Time Primary/Secondary Diagnosis Diagnosis Name Provider Source Dec 07, 2024 03:35 PM PRIMARY Encounter for fitting and adjustment of hearing aid [facility] Dec 07, 2024 03:35 PM SECONDARY Sensorineural hearing loss, bilateral [facility] Dec 07, 2024 03:35 PM SECONDARY Tinnitus, bilateral [facility] Plan of Treatment: [...] Appointment Type Appointme nt Facility Name Dec 13, 2024 09:40 AM [facility] [facility] Dec 13, 2024 10:30 AM [facility] Dec 25, 2024 03:30 PM [facility] Dec 27, 2024 09:40 AM [facility] December 28, 2024 10:00 AM [facility] January 08, 2025 11:30 AM [facility] [place] [facility] January 08, 2025 12:00 PM [facility] [place] [facility] January 08, 2025 12:01 PM [place] [facility] January 11, 2025 07:30 AM [facility] [place] [facility] January 16, 2025 12:15 PM [facility] [place] [facility] January 24, 2025 10:15 AM AMBUL[place]ORY - [place] [facility] Jan 31, 2025 09:40 AM [facility] [facility] Jan 31, 2025 10:30 AM [facility] [facility] Feb 14, 2025 09:00 AM [facility] [facility] Feb 14, 2025 09:40 AM [facility] [facility] Mar 06, 2025 09:30 AM [facility] [place] [facility] [place] [facility] Mar 06, 2025 10:00 AM [facility] - MEDICINE [facility] Mar 07, 2025 10:40 AM [facility] - MEDICINE [facility] Mar 21, 2025 09:40 AM [facility] Mar 29, 2025 10:20 AM [facility] [facility] Active, Pending, and Scheduled Orders This section includes a listing of several types of active, pending, and scheduled orders, including clinic medications orders, diagnostic test orders, procedure orders and consult orders; where the start date of the order is 45 days before the date of the Encounter or 45 days after the date of theEncounter. The data comes from all [place] treatment facilities. Test Date/Time Test Type Test Details Facility Name Dec 27, 2024 03:42 PM Consult Order [facility] [id number] Cons Radiation Protection Technician's Choice [facility] Lab Results: +/- 30 days of the [...] Type Comment Dec 27, 2024 09:45 AM [facility] TSH ([place]) SERUM Specimen Type: SERUM No comment entered. Ordering Provider: JUAN CARLOS BRENNAN Report Released Date/Time: Dec 27, 2024 09:44 AM Reporting Lab: [place] [facility] [address] [place] [address] Performing Lab: [place] [facility] [address] [place] [address] TSH 1.171 u[IU]/mL 0.47-5 Dec 27, 2024 09:45 AM [facility] HGA1C BLOOD Specimen Type: BLOOD No comment entered. Ordering Provider: JUAN CARLOS BRENNAN Report Released Date/Time: Dec 27, 2024 09:44 AM Reporting Lab: [place] [facility] [address] [place] [address] Performing Lab: [place] [facility] [address] [place] [address] HGA1C 5.5 4.0-6.0 Dec 27, 2024 09:45 AM [facility] VITAMIN D, 25-HYDROXY SERUM Specimen Type: SE RUM No comment entered. Ordering Provider: JUAN CARLOS BRENNAN Report Released Date/Time: Dec 27, 2024 09:44 AM Reporting Lab: [place] [facility] [address] [place] [address] Performing Lab: [place] [facility] [address] [place] [address] VITAMIN D, 25-HYDROXY 33.7 ng/mL 30-96 Dec 27, 2024 09:45 AM [facility] CHOLESTEROL PANEL (PB) PLASMA Specimen Type: P SELAM Comment: LDL calculation invalid when Triglyceride exceeds 250 mg/dl Ordering Provider: JUAN CARLOS BRENNAN Report Released Date/Time: Dec 27, 2024 09:44 AM Reporting Lab: [place] [facility] [address] [place] [address] Performing Lab: [place] [facility] [address] [place] [address] CHOLESTEROL 198 mg/dL 0-200 TRIGLYCERIDE 429 mg/dL H 0-150 CALCULATED LDL comment mg/dL HDL(New) 41.3 mg/dL H >40 HDL % OF TOTAL CHOLESTEROL (PB) 20.9 >25 DIRECT LDL([place]) 119.7 mg/dL H 0-99.9 Dec 27, 2024 09:45 AM [facility] URINALYSIS ([facility]-PB) URINE Specimen Type: URIN E No comment entered. Ordering Provider: JUAN CARLOS BRENNAN Report Released Date/Time: Dec 27, 2024 09:44 AM Reporting Lab: [facility] [address] [place] [address] Performing Lab: [facility] [address] [address] URINE COLOR Light Yellow Yellow U.BILIRUBIN NEGATIVE mg/dL Negative U.PH 6.5 5.0-8.0 APPEARANCE CLEAR Clear U.NITRITE NEGATIVE mg/dL Negative URN.GLUCOSE NORMAL mg/dL Negative URN.PROTEIN NEGATIVE mg/dL URN.UROBILINOGEN NORMAL mg/dL Normal URN.BLOOD NEGATIVE mg/dL Negative-Trace URN.KETONES NEGATIVE mg/dL Negative-Trac e URN.LEUK.EST. NEGATIVE Negative-Trace URN.SPECIFIC GRAVITY 1.017 1.005-1.029 Dec 27, 2024 09:45 AM [facility] COMPREHENSIVE METABOLIC PANEL PLASMA Specimen Type: PLASMA Comment: LDL calculation invalid when Triglyceride exceeds 250 mg/dl Ordering Provider: JUAN CARLOS BRENNAN Report Released Date/Time: Dec 27, 2024 09:44 AM Reporting Lab: [facility] [address] [place] [address] Performing Lab: [facility] [address] [place] [address] CREATININE 0.65 mg/dL 0.6-1.1 UREA NITROGEN 9 [...] 2020) 93 Dec 27, 2024 09:45 AM [facility] CBC BLOOD Specimen Type: BLOOD No comment entered. Ordering Provider: JUAN CARLOS BRENNAN Report Released Date/Time: Dec 27, 2024 09:44 AM Reporting Lab: [place] [facility] [address] [place] [address] Performing Lab: [place] [facility] [address] [place] [address] WBC 9.1 10*3/uL 3.6-11.2 RBC 5.17 10*6/uL [...] 0. 00-0.05 Dec 13, 2024 10:59 AM [facility] DRUG SCREEN URINE-inhouse (PB) URINE Specimen Type: URINE No comment entered. Ordering Provider: JUAN CARLOS BRENNAN Report Released Date/Time: Dec 13, 2024 10:48 AM Reporting Lab: [place] [facility] [address] [place] [address] Performing Lab: [place] [facility] [address] [place] [address] METHADONE Negative Negative OPIATES (PB) Negative Negative COCAINE... Negative Negative THC(Marijuana... Negative Negative BENZODIAZEPINE (PB) Negative Negative AMPHETAMINE... Negative Negative CREATININE URINE/OTHERS 94.26 mg/dL OXYCODONE ([id number]) Negative Negati ve BUPRENORPHINE (STL-PB-[place]) Negative ng/mL [...] Facil ity January 21, 2024 10:00 AM [place]-TOBACCO FORMER USER [facility] Tobacco Use History This section includes a history of the smoking, or tobacco-related health factors, that were collected on or before the date of the Encounter. The data comes from the [place] facility where the Encounter took place. Date/Time Smoking Status/Tobacco Use Comment F acility January 21, 2024 10:00 AM [place]-TOBACCO QUIT 5 TO < 15 YRS [facility] January 27, 2023 12:31 PM [place]-TOBACCO FORMER USER [facility] January 27, 2023 12:31 PM [place]-TOBACCO QUIT 15 YRS OR MORE [facility] Advance Directives: All historical [...] CHEST X-RAY, 2 VIE WS: GERDA ARAGON [id number] -1950 F Exm Date: DECEMBER 28, 2024@10:29 Req Phys: JUAN CARLOS BRENNAN Loc: PB-MICHAEL PACT FOXTROT ROOFER APPRENTICE WH (Req Img Loc: PB-XRAY [place] Service: [place] [address] (Case [id number] COMPLETE) CHEST X-RAY, 2 VIEWS (RAD Detailed) CPT:69484 Reason for Study: screening Clinical History: surgery clearance Report Status: Verified Date Reported: DECEMBER 28, 2024 Date Verified: DECEMBER 28, 2024 Crystal Report Developer E-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 Lungs hyperinflated with emphysematous changes. Apical pleural thickening. There are no infiltrates or effusions. Heart normal size. Plaque thoracic aorta. Degenerative changes thoracic spine. Findings similar previous study dated 08/28/2024. Impression: 1. COPD with apical pleural thickening 2. Findings similar previous study Primary Interpreting Staff: THAD ZHANG, RADIOLOGIST (Crystal Report Developer, no e-sig) [facility] THAD ZHANG [facility] Dec 13, 2024 10:10 AM RIBS,RIGHT+CHEST 3 +VIEWS: GERDA ARAGON [id number] -1950 F Exm Date: DEC 13, 2024@10:10 Req Phys: MORRIS RICH Loc: PB-MICHAEL CHIRO (Req'g Loc) Img Loc: PB-XRAY [place] Service: [place] [address] (Case [id number] COMPLETE) RIBS,RIGHT+CHEST 3+VIEWS (RAD Detailed) CPT:30323 Proc Modifiers : RIGHT Reason for Study: fell from stepladder Clinical History: Report Status: Verified Date Reported: DEC 13, 2024 Date Verified: DEC 13, 2024 Crystal Report Developer E-Sig: Report: Chest and right RIBS. Lungs [...] fracture Primary Interpreting Staff: THAD ZHANG RADIOLOGIST (Crystal Report Developer, no e-sig) /THAD Rogers [facility] Dec 13, 2024 09:55 AM SPINE LUMBOSACRAL 2 OR 3 VIEWS: GERDA ARAGON [id number] -1950 F Exm Date: DEC 13, 2024@09:55 Req Phys: MORRIS RICH Loc: PB-MICHAEL CHIRO (Req'g Loc) Img Loc: PB-XRAY [place] Service: [place] [address] (Case [id number] COMPLETE) SPINE LUMBOSACRAL 2 OR 3 VIEWS (RAD Detailed) CPT:60171 Reason for Study: fell off stepladder Clinical History: Report Status: Verified Date Reported: DEC 13, 2024 Date Verified: DEC 13, 2024 Crystal Report Developer E-Sig: Report: Lumbar spine 3 views. There are degenerative changes with osteophytes and involvement of the facets. Narrowing the L1-2, L2-3 and L3-4 disc spaces. No fracture or dislocation. No evidence of bony destruction. Grade 1 spondylolisthesis L4 on L5. Scoliosis. Plaque in the abdominal aorta. Impression: 1. Moderate degenerative arthritis 2. Narrowing L1-2, L2-3 and L3-4 disc spaces 3. Tcml-tj-xwxnglry scoliosis 4. Grade 1 spondylolisthesis L4 on L5 Primary Interpreting Staff: THAD ZHANG RADIOLOGIST (Crystal Report Developer, no e-sig) /THAD [facility] Dec 13, 2024 09:55 AM SPINE THORACIC 2 V IEWS: GERDA ARAGON [id number] -1950 F Exm Date: DEC 13, 2024@09:55 Req Phys: MORRIS RICH Loc: PB-MICHAEL CHIRO (Req'g Loc) Img Loc: PB-XRAY [place] Service: [place] [address] (Case [id number] COMPLETE) SPINE THORACIC 2 VIEWS (RAD Detailed) CPT:13542 Reason for Study: fell off stepladder Clinical History: Report Status: Verified Date Reported: DEC 13, 2024 Date Verified: DEC 13, 2024 Crystal Report Developer E-Sig: Report: Thoracic spine 3 views including [...] spine Primary Interpreting Staff: THAD ZHANG, RADIOLOGIST (Crystal Report Developer, no e-sig) /[facility] THAD ZHANG [facility] Nov 17, 2024 10:59 AM MRI SHOULDER LEFT: GERDA ARAGON [id number] -1950 F Exm Date: NOV 17, 2024@10:59 Req Phys: JUAN CARLOS BRENNAN Loc: OUTSIDE PB-MRI (Req'g Loc) Img Loc: OUTSIDE PB-MRI Service: Unknown Screen: Patient is unable to answer or is unsure Screen Comment: OUTSIDE STUDY (Case [id number] COMPLETE) MRI SHOULDER LEFT (MRI Detailed) CPT:05656 Reason for Study: Exam imported from outside Clinical History: Original Data for Imported Study Patient Name: GERDA ARAGON Date: 1950 Sex: F Study Date: 11/17/24 Study Time: 10:59:27 Study Description: MR shoulder LT wo con* [id number] Referring Physician: UNKNOWN, UNKNOWN Series 1: 27 [...] files, description: COR T2 FS Acquisition site: [facility] Report Status: Electronically Filed Date Reported: DEC 06, 2024 Report: No report text Impression: No impression text VERIFIED BY: / *ELECTRONICALLY FILED* [facility] Encounter Notes: All associated encounter notes This section contains the clinical notes associated to the Encounter. Date/Time Encounter Note(s) Provider Source Dec 07, 2024 03:30 PM AUDIOLOGY NOTE: LOCAL TITLE: HEARING CLINIC STANDARD TITLE: AUDIOLOGY NOTE DATE OF NOTE: DEC 07, 2024@15:30 ENTRY DATE: DEC 07, 2024@15:30:57 AUTHOR: KAREN FORD EXP COSIGNER: URGENCY: STATUS: COMPLETED is presenting to the clinic today for his/her Telehealth appointment as scheduled. was assured that the Telehealth visit is a private, confidential clinical encounter and will not be recorded. The Telehealth process, procedures and expectations were explained to the patient, allowing [place] time to voice any concerns. [place] voiced understanding and consented to the Clinic visit. The visit proceeded without difficulty. THIS APPOINTMENT WAS ACCOMPLISHED VIA TELEMEDICINE [place] [place] [facility]. [place] is in [place] and Energy Scheduler is in [place]. The was seen on today's date for the fitting and adjustment of new: HEARING DEVICES: [place] was fit with the following hearing devices and accessories today: 11/2024 PHONAK AUDEO L90-312 CAMELIA L [id number] 12/08/27 05/07/2511/2024 PHONAK AUDEO L90-312 CAMELIA R [id number] 04/10/28 09/08/25 - S PHYSICIAN COMPENSATION ANALYST 5.0 - SIZE 2 - OPEN DOME - MEDIUM - CERUSTOP Phone Connectivity: streaming Otoscopic: Used Total E[facility] (otoscope) to present inner ears over Tele-Med to Energy Scheduler. Placed FreeFit on and inserted probe tubes and hearing aids. [place] was counseled by telemedicine senior engineering technician regarding: ( x ) COMPONENTS OF HIS HEARING AIDS / PERIPHERAL DEVICES ( x ) INSERTION AND REMOVAL OF HEARING AIDS ( x ) INSERTION AND REMOVAL OF BATTERIES ( x ) TYPICAL BATTERY LIFE / BATTERY SIZE ( ) USE OF DRY AID KIT ONCE RECEIVED ( x ) PROTOCOL FOR BATTERY AND SUPPLY REFILLS VIA [facility] ( x ) TROUBLE SHOOTING OF DEVICES ( x ) WAX TRAP REPLACEMENT / EARMOLD - DOME CLEANING ( x ) DAILY CLEANING / MAINTENANCE OF DEVICES The practiced insertion, removal and volume control use. The [place] was issued two-six count of batteries out of [place] stock. Size: ( ) 13 ( x ) 312 ( ) 675 ( ) 10 The [place] has been issued the IOI-WILLIAM and asked to fill it out and return it by mail 4 weeks post F&A. The will contact the audiology department in the event of soreness, irritation, problem with the hearing aids, general questions etc. /sarabjit/ ANKIT [facility] Signed: 12/07/2024 15:35 KAREN FORD [facility]
--- OUTSIDE RECORDS SUMMARY | 2024-12-07 09:01 | XMS_ITS | Encounter Summary ---
Author Name [facility] [place] [facility] [place] Address [address] [place] [address] Care Team Providers Care Compatibility Test Engineer Name Role Phone JUAN CARLOS BRENNAN Primary Care Provider Unavail LE Patterson Primary Care Provider Unavailabl e Insurance Providers: [...] MEDICARE ADVANTAGE MCR (WNR) Aug 30, 2022 [id number] GERDA ARAGON PATIENT [employer] MCR (WNR) MEDICARE ADVANTAGE MCR (WNR) Aug 30, 2022 [id number] [phone] GERDA ARAGON PATIENT MEDICARE (WNR) MEDICARE (M) PART A Jun 30, 2017 PART A [id number] [phone] GERDA ARAGON PATIENT MEDICARE (WNR) MEDICARE (M) PART B Jun 30, 2017 PART B [id number] [phone] GERDA ARAGON PATIENT MEDICARE (WNR) MEDICARE (M) PART A Jun 30, 2017 PART A [id number] [phone] GERDA ARAGON PATIENT MEDICARE (WNR) MEDICARE (M) PART B Jun 30, 2017 PART B [id number] GERDA ARAGON PATIENT [facility] (WNR) MEDICARE ADVANTAGE [facility] (WNR) Sep 30, 2023 [id number] GERDA ARAGON PATIENT Selected Encounter This section includes the information on record at [place] for the Encounter. Date/Time Encounter Type Encounter Description Reason Provider Source Dec 07, 2024 02:01 PM CONFORMITY EVALUATION AUDIOLOGY ICD-10-CM Z46.1 Encounter for fitting and adjustment of hearing aid ЕЛЕНА FERNANDOCLAUDIA Jensen [facility] Encounter Template Text not used by [place] Assessments - Encounter Diagnoses This section includes the primary and secondary diagnoses documented for the Encounter. Date/Time Primary/Secondary Diagnosis Diagnosis Name Provider Source Dec 07, 2024 01:47 PM PRIMARY Encounter for fitting and adjustment of hearing aid ABDULLAHIJOSSELYN Jensen [place] [facility] Dec 07, 2024 01:47 PM SECONDARY Sensorineural hearing loss, bilateral JOSSELYN FERNANDO RA Jensen [place] [facility] Dec 07, 2024 01:47 PM SECONDARY Tinnitus, bilateral JOSSELYN FERNANDO RA [place] [facility] Plan of Treatment: Future Appointments (+ 6 months) and Future Tests (+/- 45 days) The Plan of Treatment section includes future care activities for the patient from all [place] treatmentfacilities. This section includes future appointments and future orders which are active, pending or scheduled. Future Appointments This section includes appointments that were scheduled to occur 6 months from the date of the Encounter, up to a maximum of 20 appointments. The data comes from all [place] treatment facilities. Appointment Date/Time Appointment Type Appointme nt Facility Name Dec 13, 2024 09:40 AM [facility] Dec 13, 2024 10:30 AM [facility] Dec 25, 2024 03:30 PM [facility] Dec 27, 2024 09:40 AM [facility] - MEDICINE [facility] December 28, 2024 10:00 AM AMBULATORY - MEDICINE [facility] January 08, 2025 11:30 AM AM[facility]ATORY - MEDICINE [facility] January 08, 2025 12:00 PM [facility] January 08, 2025 12:01 PM [facility] [place] [facility] January 11, 2025 07:30 AM [facility] [place] [facility] [facility] January 16, 2025 12:15 PM [facility] [place] [facility] [facility] January 24, 2025 10:15 AM AMBULATORY - NONE [place] [facility] Jan 31, 2025 09:40 AM [facility] Jan 31, 2025 10:30 AM [facility] Feb 14, 2025 09:00 AM [facility] Feb 14, 2025 09:40 AM [facility] Mar 06, 2025 09:30 AM [facility] Mar 06, 2025 10:00 AM [facility] - MEDICINE [facility] Mar 07, 2025 10:40 AM [facility] Mar 21, 2025 09:40 AM AMBULATORY - MEDICINE [facility] Mar 29, 2025 10:20 AM AMBULATORY - MEDICINE [place] [facility] Active, Pending, and Scheduled Orders This section includes a listing of several types of active, pending, and scheduled orders, including clinic medications orders, diagnostic test orders, procedure orders and consult orders; where the start date of the order is 45 days before the date of the Encounter or 45 days after the date of theEncounter. The data comes from all [place] treatment facilities. Test Date/Time Test Type Test Details Facility Name Dec 27, 2024 03:42 PM Consult Order [facility]ER[facility] [id number] Cons Extract Puller's Choice [facility] Lab Results: +/- 30 days of the encounter This section includes the Chemistry and Hematology Lab Results on record with [place] for the patient. Radiology Reports and Pathology Reports are provided separately, in subsequent sections. Lab Results This section contains the Chemistry/Hematology Results that were resulted 30 days before or 30 daysafter the date of the Encounter. Date/Time Source Result Type Result - Unit Interpretation Reference Range Specimen Type Comment Dec 27, 2024 09:45 AM [facility] TSH (MA-PB) SERUM Specimen Type: SERUM No comment entered. Ordering Provider: BRENNAN,JUAN CARLOS R Report Released Date/Time: Dec 27, 2024 09:44 AM Reporting Lab: [place] [facility] [address] [place] [address] Performing Lab: [place] [facility] [address] [place] [address] TSH 1.171 u[IU]/mL 0.47-5 Dec 27, 2024 09:45 AM [facility] HGA1C BLOOD Specimen Type: BLOOD No comment entered. Ordering Provider: JUAN CARLOS BRENNAN Report Released Date/Time: Dec 27, 2024 09:44 AM Reporting Lab: [place] [facility] [address] [place] [address] Performing Lab: [place] [facility] [address] [place] [address] HGA1C 5.5 4.0-6.0 Dec 27, 2024 09:45 AM [facility] VITAMIN D, 25-HYDROXY SERUM Specimen Type: SE RUM No comment entered. Ordering Provider: JUAN CARLOS BRENNAN Report Released Date/Time: Dec 27, 2024 09:44 AM Reporting Lab: [place] [facility] [address] [place] [address] Performing Lab: [place] [facility] [address] [place] [address] VITAMIN D, 25-HYDROXY 33.7 ng/mL 30-96 Dec 27, 2024 09:45 AM [facility] CHOLESTEROL PANEL (PB) PLASMA Specimen Type: P SELAM Comment: LDL calculation invalid when Triglyceride exceeds 250 mg/dl Ordering Provider: JUAN CARLOS BRENNAN Report Released Date/Time: Dec 27, 2024 09:44 AM Reporting Lab: [place] [facility] [address] [place] [address] Performing Lab: [place] [facility] [address] [place] [address] CHOLESTEROL 198 mg/dL 0-200 TRIGLYCERIDE 429 mg/dL H 0-150 CALCULATED LDL comment mg/dL HDL(New) 41.3 mg/dL H >40 HDL % OF TOTAL CHOLESTEROL (PB) 20.9 >25 DIRECT LDL(MA) 119.7 mg/dL H 0-99.9 Dec 27, 2024 09:45 AM [facility] URINALYSIS (STL-PB) URINE Specimen Type: URIN E No comment entered. Ordering Provider: JUAN CARLOS BRENNAN Report Released Date/Time: Dec 27, 2024 09:44 AM Reporting Lab: [facility] [address] [place] [address] Performing Lab: [facility] [address] [place] [address] URINE COLOR Light Yellow Yellow U.BILIRUBIN NEGATIVE mg/dL Negative U.PH 6.5 5.0-8.0 APPEARANCE CLEAR Clear U.NITRITE NEGATIVE mg/dL Negative URN.GLUCOSE NORMAL mg/dL Negative URN.PROTEIN NEGATIVE mg/dL URN.UROBILINOGEN NORMAL mg/dL Normal URN.BLOOD NEGATIVE mg/dL Negative-Trace URN.KETONES NEGATIVE mg/dL Negative-Trac e URN.LEUK.EST. NEGATIVE Negative-Trace URN.SPECIFIC GRAVITY 1.017 1.005-1.029 Dec 27, 2024 09:45 AM [facility] COMPREHENSIVE METABOLIC PANEL PLASMA Specimen Type: PLASMA Comment: LDL calculation invalid when Triglyceride exceeds 250 mg/dl Ordering Provider: JUAN CARLOS BRENNAN Report Released Date/Time: Dec 27, 2024 09:44 AM Reporting Lab: [facility] [address] [place] [place] [address] Performing Lab: [facility] [address] [place] [address] [place] [address] CREATININE 0.65 mg/dL 0.6-1.1 UREA NITROGEN 9 [...] 2020) 93 Dec 27, 2024 09:45 AM [facility] CBC BLOOD Specimen Type: BLOOD No comment entered. Ordering Provider: JUAN CARLOS BRENNAN Report Released Date/Time: Dec 27, 2024 09:44 AM Reporting Lab: [place] [facility] [address] [place] [address] Performing Lab: [place] [facility] [address] [place] [address] WBC 9.1 10*3/uL 3.6-11.2 RBC 5.17 10*6/uL [...] 0. 00-0.05 Dec 13, 2024 10:59 AM [facility] DRUG SCREEN URINE-inhouse (PB) URINE Specimen Type: URINE No comment entered. Ordering Provider: JUAN CARLOS BRENNAN Report Released Date/Time: Dec 13, 2024 10:48 AM Reporting Lab: [place] [facility] [address] [place] [address] Performing Lab: [place] [facility] [address] [place] [address] METHADONE Negative Negative OPIATES (PB) Negative Negative COCAINE... Negative Negative THC(Marijuana... Negative Negative BENZODIAZEPINE (PB) Negative Negative AMPHETAMINE... Negative Negative CREATININE URINE/OTHERS 94.26 mg/dL OXYCODONE (SNVIH-ESS-ET) Negative Negati ve BUPRENORPHINE (STL-PB-MA) Negative ng/mL Negative ETHANOL URINE <10 mg/dL L 0-20 FENTANYL, URINE (PB) Negative ng/mL Advance Directives: All historical and current Section Date Range: From patient's date of to the date document was created. This section includes ALL of a patient's completed or amended [place] Advance and Rescinded Directives. The entries below indicate that a directive exists for the patient, but an actual copy is not included with this document. The data comes from all [place] facilities. Date Advance Directives Provider Source May 14, 2022 ADVANCE DIRECTIVE BERTHA NAZARIO [facility] Feb 05, 2017 ADVANCE DIRECTIVE DISCUSSION PEG SORENSEN [facility] Radiology Reports: +/- 30 days of [...] the Encounter. The data comes from all [place] treatment facilities. Date/Time Radiology Report Provider Source December 28, 2024 10:29 AM CHEST X-RAY, 2 VIE WS: GERDA ARAGON [id number] -1950 F Exm Date: DECEMBER 28, 2024@10:29 Req Phys: JUAN CARLOS BRENNAN Loc: PB-MICHAEL PACT FOXTROT RISK OFFICER WH (Req Img Loc: PB-XRAY [facility] Service: [place] [address] (Case [id number] COMPLETE) CHEST X-RAY, 2 VIEWS (RAD Detailed) CPT:06522 Reason for Study: screening Clinical History: surgery clearance Report Status: Verified Date Reported: DECEMBER 28, 2024 Date Verified: DECEMBER 28, 2024 Transport Truck Driver E-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 Lungs hyperinflated with emphysematous changes. Apical pleural thickening. There are no infiltrates or effusions. Heart normal size. Plaque thoracic aorta. Degenerative changes thoracic spine. Findings similar previous study dated 08/28/2024. Impression: 1. COPD with apical pleural thickening 2. Findings similar previous study Primary Interpreting Staff: THAD ZHANG RADIOLOGIST (Transport Truck Driver, no e-sig) /THAD Rogers [facility] Dec 13, 2024 10:10 AM RIBS,RIGHT+CHEST 3 +VIEWS: GERDA ARAGON [id number] -1950 F Exm Date: DEC 13, 2024@10:10 Req Phys: MORRIS RICH Pat Loc: PB-MICHAEL CHIRO (Req'g Loc) Img Loc: PB-XRAY [facility] Service: [place] [address] (Case [id number] COMPLETE) RIBS,RIGHT+CHEST 3+VIEWS (RAD Detailed) CPT:25374 Proc Modifiers : RIGHT Reason for Study: fell from So[employer] Clinical History: Report Status: Verified Date Reported: DEC 13, 2024 Date Verified: DEC 13, 2024 Transport Truck Driver E-Sig: Report: Chest and right RIBS. Lungs [...] fracture Primary Interpreting Staff: THAD ZHANG, RADIOLOGIST (Transport Truck Driver, no e-sig) /THAD Rogers [facility] Dec 13, 2024 09:55 AM SPINE LUMBOSACRAL 2 OR 3 VIEWS: GERDA ARAGON [id number] -1950 F Exm Date: DEC 13, 2024@09:55 Req Phys: MORRIS RICH Pat Loc: PB-MICHAEL CHIRO (Req'g Loc) Img Loc: PB-XRAY [facility] Service: [place] [address] (Case [id number] COMPLETE) SPINE LUMBOSACRAL 2 OR 3 VIEWS (RAD Detailed) CPT:23389 Reason for Study: fell off stepladder Clinical History: Report Status: Verified Date Reported: DEC 13, 2024 Date Verified: DEC 13, 2024 Transport Truck Driver E-Sig: Report: Lumbar spine 3 views. There are degenerative changes with osteophytes and involvement of the facets. Narrowing the L1-2, L2-3 and L3-4 disc spaces. No fracture or dislocation. No evidence of bony destruction. Grade 1 spondylolisthesis L4 on L5. Scoliosis. Plaque in the abdominal aorta. Impression: 1. Moderate degenerative arthritis 2. Narrowing L1-2, L2-3 and L3-4 disc spaces 3. Esog-ju-nbdekjjg scoliosis 4. Grade 1 spondylolisthesis L4 on L5 Primary Interpreting Staff: THAD ZHANG, RADIOLOGIST (Transport Truck Driver, no e-sig) /THAD Rogers [facility] Dec 13, 2024 09:55 AM SPINE THORACIC 2 V IEWS: GERDA ARAGON [id number] -1950 F Exm Date: DEC 13, 2024@09:55 Req Phys: MORRIS RICH E Pat Loc: PB-MICHAEL [facility]O (Req'g Loc) Img Loc: PB-XRAY [facility] Service: [place] [address] (Case [id number] COMPLETE) SPINE THORACIC 2 VIEWS (RAD Detailed) CPT:27084 Reason for Study: fell off stepladder Clinical History: Report Status: Verified Date Reported: DEC 13, 2024 Date Verified: DEC 13, 2024 Transport Truck Driver E-Sig: Report: Thoracic spine 3 views including [...] spine Primary Interpreting Staff: THAD ZHANG, RADIOLOGIST (Transport Truck Driver, no e-sig) /THAD Rogers [facility] Nov 17, 2024 10:59 AM MRI SHOULDER LEFT: GERDA ARAGON [id number] -1950 F Exm Date: NOV 17, 2024@10:59 Req Phys: JUAN CARLOS BRENNAN Loc: OUTSIDE PB-MRI (Req'g Loc) Img Loc: OUTSIDE PB-MRI Service: Unknown Screen: Patient is unable to answer or is unsure Screen Comment: OUTSIDE STUDY (Case [id number] COMPLETE) MRI SHOULDER LEFT (MRI Detailed) CPT:99327 Reason for Study: Exam imported from outside Clinical History: Original Data for Imported Study Patient Name: GERDA ARAGON Date: 1950 Sex: F Study Date: 11/17/24 Study Time: 10:59:27 Study Description: MR shoulder LT wo con* [id number] Referring Physician: UNKNOWN, UNKNOWN Series 1: 27 [...] description: COR T2 FS Acquisition site: [facility] Report Status: Electronically Filed Date Reported: DEC 06, 2024 Report: No report text Impression: No impression text VERIFIED BY: / *ELECTRONICALLY FILED* [facility] Encounter Notes: All associated encounter notes This section contains the clinical notes associated to the Encounter. Date/Time Encounter Note(s) Provider Source Dec 07, 2024 07:10 AM AUDIOLOGY NOTE: LOCAL TITLE: HEARING CLINIC PB STANDARD TITLE: AUDIOLOGY NOTE DATE OF NOTE: DEC 07, 2024@07:10 ENTRY DATE: DEC 07, 2024@07:10:39 AUTHOR: YADIRA FERNANDO COSIGNER: URGENCY: STATUS: COMPLETED Diagnosis: Sensorineural hearing loss, Bilateral and Tinnitus, Bilateral Treatment: Hearing Aid Fitting Time spent with Channing: 60 minutes seen for a hearing aid fitting via Audio Telehealth and verbally consented to the Telehealth modality. Multi-factor personally identifiable information of the was obtained verbally (full name and date of ). Channing accompanied by: none Patient site: [place] SUBJECTIVE: Patient is here for the issue of new hearing aids. is new to amplification. HEARING DEVICES: was fit with the following hearing devices and accessories today: 11/2024 PHONAK AUDEO L90-312 CAMELIA L [id number] 12/08/27 05/07/2511/2024 PHONAK AUDEO L90-312 CAMELIA R [id number] 12/08/27 05/07/25 - S INFORMATION ARCHITECT 5.0 - SIZE 2 - OPEN DOME - MEDIUM - CERUSTOP Phone Connectivity: streaming OBJECTIVE/ASSESSMENT: Otoscopy was performed by collaboration of telehealth clinical aviation electrical technician and provider via telehealth technology/video otoscope which revealed: Right: unremarkable Left: unremarkable Probe-Microphone Measures: Conformity evaluation was performed using real ear measures with NAL-NL2 ([employer]) targets. Maximum output was within the predicted upper limit of comfort. Hearing aids set to 100% target gain per patient subjective listening preference. Feedback manager sports completed. Familiarized patient with sound indicators (low battery signal, volume control, etc.). Device(s) issued in Remote Cannon Fire Direction Specialist System. Physical Fit/Comfort: Good per patient. Sound Quality: Good per patient. Settings: - Programs: Automatic - Push button: enabled - Volume control: short press - Program change: medium press - On/Off device: long press Phone Connectivity: - streaming. A test call confirmed proper connectivity. DIRECT PATIENT EDUCATION-30 minutes Channing educated on: - Use of batteries/cupola charger insulation - Hearing aid care and maintenance - Adjustment period/ importance of daily consistent use (8- 12hrs/day) - Realistic expectations - Effective communication strategies - Pet/child warning - Patient instructed not to wear devices in excessive noise - Installation and use of additional accessories - Ordering supplies through [facility] - Repair process - Trial period Channing demonstrated how to: - Insert/remove hearing aid(s) - Adjust volume control/program switch - Change batteries/charge hearing aid(s) Channing was provided: - Hearing aid manual - [place] 2477b Channing was counseled/educated on services provided today and is in agreement with the plan. Patient was given clinic phone number and encouraged to contact the clinic as needs arise. PLAN: Return to clinic for follow up/check. Please complete outcome measures questionnaire at that time. /sarabjit/ Mihir Kerr [facility] Signed: 12/07/2024 14:15 YADIRA FERNANDO [facility]
--- OUTSIDE RECORDS SUMMARY | 2024-12-13 04:40 | XMS_ITS | Encounter Summary ---
Author Name [facility] [place] [facility] [place] Address [address] [place] [address] Care Team Providers Care Loss Prevention Leader Name Role Phone JUAN CARLOS BRENNAN Primary [...] MEDICARE ADVANTAGE MCR (WNR) Aug 30, 2022 [id number] GERDA ARAGON PATIENT HUMANA MCR (WNR) MEDICARE ADVANTAGE MCR (WNR) Aug 30, 2022 [id number] GERDA ARAGON PATIENT MEDICARE (WNR) MEDICARE (M) PART A Jun 30, 2017 PART A [id number] [phone] GERDA ARAGON PATIENT MEDICARE (WNR) MEDICARE (M) PART B Jun 30, 2017 PART B [id number] GERDA ARAGON PATIENT MEDICARE (WNR) MEDICARE (M) PART A Jun 30, 2017 PART A [id number] GERDA ARAGON PATIENT MEDICARE (WNR) MEDICARE (M) PART B Jun 30, 2017 PART B [id number] GERDA ARAGON PATIENT WELLCARE MCR (WNR) MEDICARE ADVANTAGE [facility] (WNR) Sep 30, 2023 [id number] [phone] GERDA ARAGON PATIENT Selected Encounter This section includes the information on record at [place] for the Encounter. Date/Time Encounter Type Encounter Description Reason Provider Source Dec 13, 2024 09:40 AM CHIROPRACT MAN 3-4 REGIONS IMPORT COORDINATOR ICD-10-CM M99.01 Segmental and somatic dysfunction of cervical region MORRIS RICH Encounter Template Text not used by [facility] Assessments - Encounter Diagnoses This section includes the primary and secondary diagnoses documented for the Encounter. Date/Time Primary/Secondary Diagnosis Diagnosis Name Provider Source Dec 13, 2024 10:27 AM PRIMARY Segmental and somatic dysfunction of cervical region MORRIS RICH [facility] Dec 13, 2024 10:27 AM SECONDARY Cervicalgia [facility]IS RICH [facility] Dec 13, 2024 10:27 AM SECONDARY Oth intvrt disc degen, lumbosacr w discog bck & lw extrm pn MORRIS RICH [place] [facility] Dec 13, 2024 10:27 AM SECONDARY Pain in thoracic spine MORRIS RICH [facility] Dec 13, 2024 10:27 AM SECONDARY Segmental and somatic dysfunction of lumbar region M[facility]RIS RICH [facility] Dec 13, 2024 10:27 AM SECONDARY Segmental and somatic dysfunction of pelvic region M[facility]RIS RICH [facility] Dec 13, 2024 10:27 AM SECONDARY Segmental and somatic dysfunction of [...] 20 appointments. The data comes from all [facility]. Appointment Date/Time Appointment Type Appointme nt Facility Name Dec 25, 2024 03:30 PM [facility] [place] [facility] Dec 27, 2024 09:40 AM [facility] [place] [facility] December 28, 2024 10:00 AM [facility] [place] [facility] January 08, 2025 11:30 AM [facility] [place] [facility] January 08, 2025 12:00 PM [facility] [place] [facility] January 08, 2025 12:01 PM [facility] [place] [facility] January 11, 2025 07:30 AM [facility] [facility] January 16, 2025 12:15 PM [facility] [facility] January 24, 2025 10:15 AM [place] - [place] [facility] Jan 31, 2025 09:40 AM [facility] [place] [facility] Jan 31, 2025 10:30 AM [facility] [place] [facility] Feb 14, 2025 09:00 AM [facility] [place] [facility] Feb 14, 2025 09:40 AM [facility] [place] Mar 06, 2025 09:30 AM [facility] [place] Mar 06, 2025 10:00 AM [facility] [place] [facility] Mar 07, 2025 10:40 AM [facility] [place] [facility] Mar 21, 2025 09:40 AM [facility] [place] [facility] Mar 29, 2025 10:20 AM [facility] - [facility] [place] [facility] Apr 04, 2025 09:40 AM AMBULATORY - MEDICINE [facility] CB Active, Pending, and Scheduled Orders This section includes a listing of several types of active, pending, and scheduled orders, including clinic medications orders, diagnostic test orders, procedure orders and consult orders; where the start date of the order is 45 days before the date of the Encounter or 45 days after the date of theEncounter. The data comes from all [facility]. Test Date/Time Test Type Test Details Facility Name Dec 27, 2024 03:42 PM Consult Order [facility] MASSAGE THERAPY [id number] Cons Supervisor Of Guidance And Testing's Choice [facility] Lab Results: +/- 30 days of the encounter This section includes the Chemistry and Hematology Lab Results on record with [place] for the patient. Radiology Reports and Pathology Reports are provided separately, in subsequent sections. Lab Results This section contains the Chemistry/Hematology Results that were resulted 30 days before or 30 daysafter the date of the Encounter. Date/Time Source Result Type Result - Unit Interpretation Reference Range Specimen Type Comment Dec 27, 2024 09:45 AM [facility] TSH (MA-PB) SERUM Specimen Type: SERUM No comment entered. Ordering Provider: JUAN CARLOS BRENNAN Report Released Date/Time: Dec 27, 2024 09:44 AM Reporting Lab: [place] [facility] [address] [place] [address] Performing Lab: [place] [facility] [address] [place] [address] TSH 1.171 u[IU]/mL 0.47-5 Dec 27, 2024 09:45 AM [facility] HGA1C BLOOD Specimen Type: BLOOD No comment entered. Ordering Provider: JUAN CARLOS BRENNAN Report Released Date/Time: Dec 27, 2024 09:44 AM Reporting Lab: [place] [facility] [address] [place] [address] Performing Lab: [place] [facility] [address] [place] [address] HGA1C 5.5 4.0-6.0 Dec 27, 2024 09:45 AM [facility] VITAMIN D, 25-HYDROXY SERUM Specimen Type: SE RUM No comment entered. Ordering Provider: JUAN CARLOS BRENNAN Report Released Date/Time: Dec 27, 2024 09:44 AM Reporting Lab: [place] [facility] [address] [place] [address] Performing Lab: [place] [facility] [address] [place] [address] VITAMIN D, 25-HYDROXY 33.7 ng/mL 30-96 Dec 27, 2024 09:45 AM [facility] CHOLESTEROL PANEL (PB) PLASMA Specimen Type: P LASMA Comment: LDL calculation invalid when Triglyceride exceeds 250 mg/dl Ordering Provider: JUAN CARLOS BRENNAN Report Released Date/Time: Dec 27, 2024 09:44 AM Reporting Lab: [place] [facility] [address] [place] [facility] Performing Lab: [place] [facility] [address] [place] [address] CHOLESTEROL 198 mg/dL 0-200 TRIGLYCERIDE 429 mg/dL H 0-150 CALCULATED LDL comment mg/dL HDL(New) 41.3 mg/dL H >40 HDL % OF TOTAL CHOLESTEROL (PB) 20.9 >25 DIRECT LDL(MA) 119.7 mg/dL H 0-99.9 Dec 27, 2024 09:45 AM [facility] URINALYSIS (STL-PB) URINE Specimen Type: URIN E No comment entered. Ordering Provider: JUAN CARLOS BRENNAN Report Released Date/Time: Dec 27, 2024 09:44 AM Reporting Lab: [place] [facility] [address] [place] [address] Performing Lab: [place] [facility] [address] [place] [address] URINE COLOR Light Yellow Yellow U.BILIRUBIN NEGATIVE mg/dL Negative U.PH 6.5 5.0-8.0 APPEARANCE CLEAR Clear U.NITRITE NEGATIVE mg/dL Negative URN.GLUCOSE NORMAL mg/dL Negative URN.PROTEIN NEGATIVE mg/dL URN.UROBILINOGEN NORMAL mg/dL Normal URN.BLOOD NEGATIVE mg/dL Negative-Trace URN.KETONES NEGATIVE mg/dL Negative-Trac e URN.LEUK.EST. NEGATIVE Negative-Trace URN.SPECIFIC GRAVITY 1.017 1.005-1.029 Dec 27, 2024 09:45 AM [facility] COMPREHENSIVE METABOLIC PANEL PLASMA Specimen Type: PLASMA Comment: LDL calculation invalid when Triglyceride exceeds 250 mg/dl Ordering Provider: JUAN CARLOS BRENNAN Report Released Date/Time: Dec 27, 2024 09:44 AM Reporting Lab: [place] [facility] [address] [place] [address] Performing Lab: [place] [facility] [address] [place] [address] CREATININE 0.65 mg/dL 0.6-1.1 UREA NITROGEN 9 [...] 2020) 93 Dec 27, 2024 09:45 AM [facility] CBC BLOOD Specimen Type: BLOOD No comment entered. Ordering Provider: JUAN CARLOS BRENNAN Report Released Date/Time: Dec 27, 2024 09:44 AM Reporting Lab: [place] [facility] [address] [place] [facility] [address] Performing Lab[facility] [place] [facility] [address] [facility] [address] WBC 9.1 10*3/uL 3.6-11.2 RBC 5.17 10*6/uL [...] 0. 00-0.05 Dec 13, 2024 10:59 AM [facility] DRUG SCREEN URINE-inhouse (PB) URINE Specimen Type: URINE No comment entered. Ordering Provider: JUAN CARLOS BRENNAN Report Released Date/Time: Dec 13, 2024 10:48 AM Reporting Lab: [place] [facility] [address] [place] [address] Performing Lab: [place] [facility] [address] [place] [address] METHADONE Negative Negative OPIATES (PB) Negative Negative COCAINE... Negative Negative THC(Marijuana... Negative Negative BENZODIAZEPINE (PB) Negative Negative AMPHETAMINE... Negative Negative CREATININE URINE/OTHERS 94.26 mg/dL OXYCODONE (ZSKCW-[id number]-KG) Negative Negati ve BUPRENORPHINE (STL-PB-MA) Negative ng/mL Negative ETHANOL URINE <10 mg/dL L 0-20 FENTANYL, URINE (PB) Negative ng/mL Vital Signs: All taken on the encounter date This section contains inpatient and outpatient Vital Signs collected on the date of the Encounter. Date/Time Temperature Pulse Blood Pressure Respiratory Rate SP02 Pain Height Weight Body Mass Index Source Dec 13, 2024 10:58 AM 97.6 82 140/89 18 97 193 29 [facility] Dec 13, 2024 09:40 AM 98 74 153/91 [facility] Social History: Smoking Status (Most current) and Tobacco Use (All prior to encounter date) This section includes the most current, and the historical, smoking and tobacco- related health factors from the [place] facility where the Encounter took place. Current Smoking Status This section includes the most current smoking, or tobacco-related health factor, from the [place] facility where the Encounter took place. Date/Time Current Smoking Status Comment Hank ity January 21, 2024 10:00 AM VA-TOBACCO FORMER USER [facility] Tobacco Use History This section includes a history of the smoking, or tobacco-related health factors, that were collected on or before the date of the Encounter. The data comes from the [place] facility where the Encounter took place. Date/Time Smoking Status/Tobacco Use Comment F acility January 21, 2024 10:00 AM [place]-TO[place]AC[place] QUIT 5 TO < 15 YRS [facility] January 27, 2023 12:31 PM VA-TOBACCO FORMER USER [facility] January 27, 2023 12:31 PM VA-TOBACCO QUIT 15 YRS OR MORE [facility] Advance Directives: All historical and current Section Date Range: From patient's date of to the date document was created. This section includes ALL of a patient's completed or amended [place] Advance and Rescinded Directives. The entries below indicate that a directive exists for the patient, but an actual copy is not included with this document. The data comes from all [place] facilities. Date Advance Directives Provider Source May [...] the Encounter. The data comes from all [place] treatment facilities. Date/Time Radiology Report Provider Source December 28, 2024 10:29 AM CHEST X-RAY, 2 VIE WS: GERDA ARAGON [id number] -1950 F Exm Date: DECEMBER 28, 2024@10:29 Req Phys: JUAN CARLOS BRENNAN Loc: PB-MICHAEL PACT FOXTROT AREA RELIEF PILOT WH (Req Img Loc: PB-XRAY [place] Service: [place] [address] (Case [id number] COMPLETE) CHEST X-RAY, 2 VIEWS (RAD Detailed) CPT:77390 Reason for Study: screening Clinical History: surgery clearance Report Status: Verified Date Reported: DECEMBER 28, 2024 Date Verified: DECEMBER 28, 2024 Hog Grader E-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 Lungs hyperinflated with emphysematous changes. Apical pleural thickening. There are no infiltrates or effusions. Heart normal size. Plaque thoracic aorta. Degenerative changes thoracic spine. Findings similar previous study dated 08/28/2024. Impression: 1. COPD with apical pleural thickening 2. Findings similar previous study Primary Interpreting Staff: THAD ZHANG, RADIOLOGIST (Hog Grader, no e-sig) /THAD Rogers [facility] Dec 13, 2024 10:10 AM RIBS,RIGHT+CHEST 3 +VIEWS: GERDA ARAGONE [id number] -1950 F Exm Date: DEC 13, 2024@10:10 Req Phys: MORRIS RICH E Pat Loc: PB-MICHAEL CHIRO (Req'g Loc) Img Loc: PB-XRAY [place] Service: [place] [address] (Case [id number] COMPLETE) RIBS,RIGHT+CHEST 3+VIEWS (RAD Detailed) CPT:90168 Proc Modifiers : RIGHT Reason for Study: fell from stepcodd Clinical History: Report Status: Verified Date Reported: DEC 13, 2024 Date Verified: DEC 13, 2024 Hog Grader E-Sig: Report: Chest and right RIBS. Lungs [...] fracture Primary Interpreting Staff: THAD ZHANG, RADIOLOGIST (Hog Grader, no e-sig) /THAD Rogers [facility] Dec 13, 2024 09:55 AM SPINE LUMBOSACRAL 2 OR 3 VIEWS: GERDA ARAGON [id number] -1950 F Exm Date: DEC 13, 2024@09:55 Req Phys: MORRIS RICH Pat Loc: PB-MICHAEL CHIRO (Req'g Loc) Img Loc: PB-XRAY [place] Service: [place] [address] (Case [id number] COMPLETE) SPINE LUMBOSACRAL 2 OR 3 VIEWS (RAD Detailed) CPT:09346 Reason for Study: fell off stepladder Clinical History: Report Status: Verified Date Reported: DEC 13, 2024 Date Verified: DEC 13, 2024 Hog Grader E-Sig: Report: Lumbar spine 3 views. There are degenerative changes with osteophytes and involvement of the facets. Narrowing the L1-2, L2-3 and L3-4 disc spaces. No fracture or dislocation. No evidence of bony destruction. Grade 1 spondylolisthesis L4 on L5. Scoliosis. Plaque in the abdominal aorta. Impression: 1. Moderate degenerative arthritis 2. Narrowing L1-2, L2-3 and L3-4 disc spaces 3. Ywlz-kp-vcyaksbm scoliosis 4. Grade 1 spondylolisthesis L4 on L5 Primary Interpreting Staff: THAD ZHANG RADIOLOGIST (Hog Grader, no e-sig) /THAD Rogers [facility] Dec 13, 2024 09:55 AM SPINE THORACIC 2 V IEWS: GERDA ARAGON [id number] -1950 F Exm Date: DEC 13, 2024@09:55 Req Phys: MORRIS RICH Loc: PB-MICHAEL CHIRO (Req'g Loc) Img Loc: PB-XRAY [place] Service: [place] [address] (Case [id number] COMPLETE) SPINE THORACIC 2 VIEWS (RAD Detailed) CPT:29715 Reason for Study: fell off stepladder Clinical History: Report Status: Verified Date Reported: DEC 13, 2024 Date Verified: DEC 13, 2024 Hog Grader E-Sig: Report: Thoracic spine 3 views including [...] spine Primary Interpreting Staff: THAD ZHANG RADIOLOGIST (Hog Grader, no e-sig) /THAD Rogers [facility] Nov 17, 2024 10:59 AM MRI SHOULDER LEFT: GERDA ARAGON [id number] -1950 F Exm Date: NOV 17, 2024@10:59 Req Phys: JUAN CARLOS BRENNAN Loc: OUTSIDE PB-MRI (Req'g Loc) Img Loc: OUTSIDE PB-MRI Service: Unknown Screen: Patient is unable to answer or is unsure Screen Comment: OUTSIDE STUDY (Case [id number] COMPLETE) MRI SHOULDER LEFT (MRI Detailed) CPT:99566 Reason for Study: Exam imported from outside Clinical History: Original Data for Imported Study Patient Name: GERDA ARAGON Date: 1950 Sex: F Study Date: 11/17/24 Study Time: 10:59:27 Study Description: MR shoulder LT wo con* [id number] Referring Physician: UNKNOWN, UNKNOWN Series 1: 27 [...] description: COR T2 FS Acquisition site: [facility] Report Status: Electronically Filed Date Reported: DEC 06, 2024 Report: No report text Impression: No impression text VERIFIED BY: / *ELECTRONICALLY FILED* EVERT RENDON [facility] Encounter Notes: All associated encounter notes This section contains the clinical notes associated to the Encounter. Date/Time Encounter Note(s) Provider Source Dec 13, 2024 09:47 AM CHIROPRACTIC NOTE: LOCAL TITLE: CHIROPRACTIC FOLLOW UP NOTE PB STANDARD TITLE: CHIROPRACTIC NOTE DATE OF NOTE: DEC 13, 2024@09:47 ENTRY DATE: DEC 13, 2024@09:47:59 AUTHOR: MORRIS RICH COSIGNER: URGENCY: STATUS: COMPLETED CHIROPRACTIC FOLLOW-UP VISIT Patient's language preference for health information: Nigerien Other Communication Methods Needed: SUBJECTIVE: [place] is a 74 year old FEMALE being seen in the Chiropractic clinic for follow-up visit. [place] states she fell backwards last week from a step-ladder onto the floor of her house. She states she fell onto the right side of her T/L region of her back and right hip. Since the fall, she reports sharp stabbing pain in the right lower ribs and lower back. Today, the rates her pain level as [...] restricted in all planes of motion. [place] experience pain with the restricted AROM. LUMBAR/THORACIC SPINE: MOVEMENT/POSTURE: [place] ambulates slowly with guarding. SEGMENTAL DYSFUNCTION: Joint dysfunction was noted in [...] and back pain, we will treat The [place] once every two weeks for six treatments. Order chest, thoracic, and lumbar x- rays, discuss the accident with the 's PCP. Prognosis: Fair Today's treatment of the consisted [...] exercise program and to commit to a alf exercise plan. /sarabjit/ [facility] Signed: 12/13/2024 10:27 Receipt Acknowledged By: 12/13/2024 16:16 /sarabjit/ IS[facility]UR[facility] [place], [facility] [place] [facility]
--- OUTSIDE RECORDS SUMMARY | 2024-12-25 10:30 | XMS_ITS ---
Author Name [facility] Organization [facility] Address [address] [place] [address] Care Team Providers Care Validation Analyst Name Role Phone JUAN CALROS BRENNAN Primary Care Provider LE Hua Primary [...] MEDICARE ADVANTAGE MCR (WNR) Aug 30, 2022 [id number] MARICHUY TEJADA PATIENT HUMANA MCR (WNR) MEDICARE ADVANTAGE MCR (WNR) Aug 30, 2022 [id number] MARICHUY TEJADA PATIENT MEDICARE (WNR) MEDICARE (M) PART A Jun 30, 2017 PART A [id number] [phone] MARICHUY TEJADA PATIENT MEDICARE (WNR) MEDICARE (M) PART B Jun 30, 2017 PART B [id number] [phone] MARICHUY TEJADA PATIENT MEDICARE (WNR) MEDICARE (M) PART A Jun 30, 2017 PART A [id number] MARICHUY TEJADA PATIENT MEDICARE (WNR) MEDICARE (M) PART B Jun 30, 2017 PART B [id number] MARICHUY TEJADA PATIENT WELLCARE MCR (WNR) MEDICARE ADVANTAGE [facility] (WNR) Sep 30, 2023 [id number] [phone] MARICHUY TEJADA PATIENT Selected Encounter This section includes the information on record at ID for the Encounter. Date/Time Encounter Type Encounter Description Reason Provider Source Dec 25, 2024 03:30 PM OFFICE O/P EST MOD 30 MIN PRIMARY CARE/MEDICINE ICD-10-CM R55 Syncope and collapse ANUEL BRENNAN Samara Encounter Template Text not used by ID Assessments - Encounter Diagnoses This section includes the primary and secondary diagnoses documented for the Encounter. Date/Time Primary/Secondary Diagnosis Diagnosis Name Provider Source December 28, 2024 10:22 AM PRIMARY Syncope and collapse PATRICK BRENNAN [facility] Plan of Treatment: Future Appointments (+ [...] Appointment Type Appointme nt Facility Name Dec 27, 2024 09:40 AM AMBULATORY - MEDICINE [facility] December 28, 2024 10:00 AM AMBULATORY - MEDICINE [facility] January 08, 2025 11:30 AM AMBULATORY - MEDICINE [facility] January 08, 2025 12:00 PM AMBULATORY - MEDICINE [facility] January 08, 2025 12:01 PM [place]IC[place] [facility] January 11, 2025 07:30 AM AMBULATORY - MEDICINE [place] [facility] January 16, 2025 12:15 PM AMBULATORY - MEDICINE [place] [facility] January 24, 2025 10:15 AM AMBULATORY - NONE [place] [facility] Jan 31, 2025 09:40 AM AMBULATORY - MEDICINE [facility] Jan 31, 2025 10:30 AM [facility] [place] [facility]IC[place] [facility] Feb 14, 2025 09:00 AM [facility] [place] [facility] [facility] Feb 14, 2025 09:40 AM [facility] [place] [facility] Mar 06, 2025 09:30 AM [facility] Mar 06, 2025 10:00 AM [facility] [place] [facility] Mar 07, 2025 10:40 AM [facility] [place] [facility] Mar 21, 2025 09:40 AM AMBULATORY - MEDICINE [facility] Mar 29, 2025 10:20 AM AMBULATORY - MEDICINE [place] [facility] Apr 04, 2025 09:40 AM AMBULATORY - MEDICINE [facility] Active, Pending, and Scheduled Orders This section includes a listing of several types of active, pending, and scheduled orders, including clinic medications orders, diagnostic test orders, procedure orders and consult orders; where the start date of the order is 45 days before the date of the Encounter or 45 days after the date of theEncounter. The data comes from all ID treatment facilities. Test Date/Time Test Type Test Details Facility Name Dec 27, 2024 03:42 PM Consult Order [facility] [id number] Cons Structural Steel Engineer's Choice [facility] Jan 31, 2025 10:55 AM Consult Order [facility] [id number] Cons Structural Steel Engineer's [facility] Lab Results: +/- 30 days of [...] Type Comment Dec 27, 2024 09:45 AM [facility] TSH (MA-PB) SERUM Specimen Type: SERUM No comment entered. Ordering Provider: JUAN CARLOS BRENNAN Report Released Date/Time: Dec 27, 2024 09:44 AM Reporting Lab: [place] [facility] [address] [place] [address] Performing Lab: [place] [facility] [address] [place] [address] TSH 1.171 u[IU]/mL 0.47-5 Dec 27, 2024 09:45 AM [facility] HGA1C BLOOD Specimen Type: BLOOD No comment entered. Ordering Provider: JUAN CARLOS BRENNAN Report Released Date/Time: Dec 27, 2024 09:44 AM Reporting Lab: [place] [facility] [address] [place] [address] Performing Lab: [place] [facility] [address] [place] [address] HGA1C 5.5 4.0-6.0 Dec 27, 2024 09:45 AM [facility] VITAMIN D, 25-HYDROXY SERUM Specimen Type: SE RUM No comment entered. Ordering Provider: JUAN CARLOS BRENNAN Report Released Date/Time: Dec 27, 2024 09:44 AM Reporting Lab: [place] [facility] [address] [place] [address] Performing Lab: [place] [facility] [address] [place] [address] VITAMIN D, 25-HYDROXY 33.7 ng/mL 30-96 Dec 27, 2024 09:45 AM [facility] CHOLESTEROL PANEL (PB) PLASMA Specimen Type: P SELAM Comment: LDL calculation invalid when Triglyceride exceeds 250 mg/dl Ordering Provider: JUAN CARLOS BRENNAN Report Released Date/Time: Dec 27, 2024 09:44 AM Reporting Lab: [place] [facility] [address] [place] [address] Performing Lab: [place] [facility] [address] [place] [address] CHOLESTEROL 198 mg/dL 0-200 TRIGLYCERIDE 429 mg/dL H 0-150 CALCULATED LDL comment mg/dL HDL(New) 41.3 mg/dL H >40 HDL % OF TOTAL CHOLESTEROL (PB) 20.9 >25 DIRECT LDL(MA) 119.7 mg/dL H 0-99.9 Dec 27, 2024 09:45 AM [facility] URINALYSIS (STL-PB) URINE Specimen Type: URIN E No comment entered. Ordering Provider: JUAN CARLOS BRENNAN Report Released Date/Time: Dec 27, 2024 09:44 AM Reporting Lab: [place] [facility] [address] [place] [address] Performing Lab: [place] [facility] [address] [place] [address] URINE COLOR Light Yellow Yellow U.BILIRUBIN NEGATIVE mg/dL Negative U.PH 6.5 5.0-8.0 APPEARANCE CLEAR Clear U.NITRITE NEGATIVE mg/dL Negative URN.GLUCOSE NORMAL mg/dL Negative URN.PROTEIN NEGATIVE mg/dL URN.UROBILINOGEN NORMAL mg/dL Normal URN.BLOOD NEGATIVE mg/dL Negative-Trace URN.KETONES NEGATIVE mg/dL Negative-Trac e URN.LEUK.EST. NEGATIVE Negative-Trace URN.SPECIFIC GRAVITY 1.017 1.005-1.029 Dec 27, 2024 09:45 AM [facility] COMPREHENSIVE METABOLIC PANEL PLASMA Specimen Type: PLASMA Comment: LDL calculation invalid when Triglyceride exceeds 250 mg/dl Ordering Provider: JUAN CARLOS BRENNAN Report Released Date/Time: Dec 27, 2024 09:44 AM Reporting Lab: [place] [facility] [address] [place] [address] Performing Lab: [place] [facility] [address] [place] [address] CREATININE 0.65 mg/dL 0.6-1.1 UREA NITROGEN 9 [...] 2020) 93 Dec 27, 2024 09:45 AM [facility] CBC BLOOD Specimen Type: BLOOD No comment entered. Ordering Provider: JUAN CARLOS BRENNAN Report Released Date/Time: Dec 27, 2024 09:44 AM Reporting Lab: [place] [facility] [address] [place] [address] Performing Lab: [place] [facility] [address] [place] [facility] WBC 9.1 10*3/uL 3.6-11.2 RBC 5.17 10*6/uL [...] 0. 00-0.05 Dec 13, 2024 10:59 AM [facility] DRUG SCREEN URINE-inhouse (PB) URINE Specimen Type: URINE No comment entered. Ordering Provider: JUAN CARLOS BRENNAN Report Released Date/Time: Dec 13, 2024 10:48 AM Reporting Lab: [place] [facility] [address] [place] [address] Performing Lab: [place] [facility] [address] [facility] [place] [facility] [address] METHADONE Negative Negative OPIATES (PB) Negative Negative COCAINE... Negative Negative THC(Marijuana... Negative Negative BENZODIAZEPINE (PB) Negative Negative AMPHETAMINE... Negative Negative CREATININE URINE/OTHERS 94.26 mg/dL OXYCODONE ([id number]) Negative Negati ve BUPRENORPHINE (STL-PB-MA) Negative ng/mL Negative ETHANOL URINE <10 mg/dL L 0-20 FENTANYL, URINE (PB) Negative ng/mL Vital Signs: All taken on the encounter date This section contains inpatient and outpatient Vital Signs collected on the date of the Encounter. Date/Time Temperature Pulse Blood Pressure Respiratory Rate SP02 Pain Height Weight Body Mass Index Source Dec 25, 2024 03:44 PM 75 119/75 96 193.6 29 [facility] Social History: Smoking Status (Most current) [...] 21, 2024 10:00 AM VA-TOBACCO FORMER USER [facility] Tobacco Use History This section includes a history of the smoking, or tobacco-related health factors, that were collected on or before the date of the Encounter. The data comes from the ID facility where the Encounter took place. Date/Time Smoking Status/Tobacco Use Comment F acility January 21, 2024 10:00 AM VA-TOBACCO QUIT 5 TO < 15 YRS [facility] January 27, 2023 12:31 PM VA-TOBACCO FORMER USER [facility] January 27, 2023 12:31 PM VA-TOBACCO QUIT 15 YRS OR MORE [facility] Advance Directives: All historical and current [...] May 14, 2022 ADVANCE DIRECTIVE BERTHA NAZARIO [facility] Feb 05, 2017 ADVANCE DIRECTIVE DISCUSSION PEG SORENSEN [facility] Radiology Reports: +/- 30 days of [...] treatment facilities. Date/Time Radiology Report Provider Source January 16, 2025 12:23 PM US CAROTID BILATER AL: MARICHUY TEJADA [id number] -1950 F Exm Date: JANUARY 16, 2025@12:23 Req Phys: JUAN CARLOS BRENNAN Loc: OUTSIDE PB-ULTRASOUND (Req'g L Img Loc: OUTSIDE PB-ULTRASOUND Service: Unknown Screen: Patient is unable to answer or is unsure Screen Comment: OUTSIDE STUDY (Case [id number] COMPLETE) US CAROTID BILATERAL (US Detailed) CPT:15240 Reason for Study: Exam imported from outside Clinical History: Original Data for Imported Study Patient Name: Marichuy Tejada Date: 1950 Sex: F Study Date: 01/16/25 Study Time: 12:23:00 Study Description: Carotid Duplex Referring Physician: Eufemia GANDHI Series 1: 49 US files, description: CV carotid duplex BI* 25931 Acquisition site: [place] [address] Report Status: Electronically Filed Date Reported: FEB 01, 2025 Report: No report text Impression: No impression text VERIFIED BY: / *ELECTRONICALLY FILED* EVERT SANTIAGO [facility] December 28, 2024 10:29 AM CHEST X-RAY, 2 VIE WS: MARICHUY TEJADA [id number] -1950 F Exm Date: DECEMBER 28, 2024@10:29 Req Phys: JUAN CARLOS BRENNAN Loc: PB-MICHAEL PACT [employer] 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 Lungs hyperinflated with emphysematous changes. Apical pleural thickening. There are no infiltrates or effusions. Heart normal size. Plaque thoracic aorta. Degenerative changes thoracic spine. Findings similar previous study dated 08/28/2024. Impression: 1. COPD with apical pleural thickening 2. Findings similar previous study Primary Interpreting Staff: THAD ZHANG RADIOLOGIST (Cylinder Batcher, no e-sig) /THAD Rogers [facility] [place] [facility] Dec 13, 2024 10:10 AM RIBS,RIGHT+CHEST 3 +VIEWS: MARICHUY TEJADA [id number] -1950 F Exm Date: DEC 13, 2024@10:10 Req Phys: MORRIS RICH Loc: PB-MICHAEL CHIRO (Req'g Loc) Img Loc: PB-XRAY [place] Service: [place] [address] (Case [id number] COMPLETE) RIBS,RIGHT+CHEST 3+VIEWS (RAD Detailed) CPT:82135 Proc Modifiers : RIGHT Reason for Study: fell from stepladder Clinical History: Report Status: Verified Date Reported: DEC 13, 2024 Date Verified: DEC 13, 2024 Cylinder Batcher E-Sig: Report: Chest and right RIBS. Lungs [...] fracture Primary Interpreting Staff: THAD ZHANG RADIOLOGIST (Cylinder Batcher, no e-sig) /THAD Rogers [facility] Dec 13, 2024 09:55 AM SPINE LUMBOSACRAL 2 OR 3 VIEWS: MARICHUY TEJADA [id number] -1950 F Exm Date: DEC 13, 2024@09:55 Req Phys: MORRIS RICH Loc: PB-MICHAEL CHIRO (Req'g Loc) Img Loc: PB-XRAY [place] Service: [place] [address] (Case [id number] COMPLETE) SPINE LUMBOSACRAL 2 OR 3 VIEWS (RAD Detailed) CPT:53725 Reason for Study: fell off stepladder Clinical History: Report Status: Verified Date Reported: DEC 13, 2024 Date Verified: DEC 13, 2024 Cylinder Batcher E-Sig: Report: Lumbar spine 3 views. There are degenerative changes with osteophytes and involvement of the facets. Narrowing the L1-2, L2-3 and L3-4 disc spaces. No fracture or dislocation. No evidence of bony destruction. Grade 1 spondylolisthesis L4 on L5. Scoliosis. Plaque in the abdominal aorta. Impression: 1. Moderate degenerative arthritis 2. Narrowing L1-2, L2-3 and L3-4 disc spaces 3. Jinr-fh-yundwtsg scoliosis 4. Grade 1 spondylolisthesis L4 on L5 Primary Interpreting Staff: THAD ZHANG, RADIOLOGIST (Cylinder Batcher, no e-sig) /THAD Rogers [facility] Dec 13, 2024 09:55 AM SPINE THORACIC 2 V IEWS: MARICHUY TEJADA [id number] -1950 F Exm Date: DEC 13, 2024@09:55 Req Phys: MORRIS RICH Loc: PB-MICHAEL CHIRO (Req'g Loc) Im Loc: PB-XRAY [place] Service: [place] [address] (Case [id number] COMPLETE) SPINE THORACIC 2 VIEWS (RAD Detailed) CPT:11170 Reason for Study: fell off stepladder Clinical History: Report Status: Verified Date Reported: DEC 13, 2024 Date Verified: DEC 13, 2024 Cylinder Batcher E-Sig: Report: Thoracic spine 3 views including [...] spine Primary Interpreting Staff: THAD ZHANG, RADIOLOGIST (Cylinder Batcher, no e-sig) /THAD Rogers [facility] Encounter Notes: All associated encounter notes This section contains the clinical notes associated to the Encounter. Date/Time Encounter Note(s) Provider Source Dec 25, 2024 04:17 PM PRIMARY CARE NURSI NG NOTE: LOCAL TITLE: PRIMARY CARE NURSING PROGRESS NOTE (TEXT) NURSING P STANDARD TITLE: PRIMARY CARE NURSING NOTE DATE OF NOTE: DEC 25, 2024@16:17 ENTRY DATE: DEC 25, 2024@16:17:19 AUTHOR: ROBIN PRECIADO COSIGNER: URGENCY: STATUS: COMPLETED Established Patient MARICHUY TEJADA IS A 74 YEAR OLD FEMALE BEING SEEN IN CLINIC DEC 25, 2024. == == REASON FOR VISIT: ER follow up. Near syncopal episode. Dizzy, short of breath, labored breathing, and chest tightness. also noticing memory issues. Are you receiving care any where other than the ID? No HEALTH AND SURGICAL HISTORY: Does patient report using home oxygen? No CURRENT ACTIVE MEDICATIONS FOR REVIEW: If the list for review does not include a component, then it was not applicable to this patient. Allergies/ADRs (Tool #5) FACILITY ALLERGY/ADR -------- [facility] ALBUTEROL [facility] ALBUTEROL [facility] LISINOPRIL Med. Reconciliation (Tool #1) INCLUDED IN THIS LIST: Alphabetical list of active outpatient prescriptions dispensed from this ID (local) and dispensed from another ID or [facility] facility (remote) as well as inpatient orders (local pending and active), local clinic medications, locally documented non-VA medications, and local prescriptions that have or been discontinued in the past 90 days. Non-VA Meds Last Documented On: January 06, 2024 NOTE The display of VA prescriptions dispensed from another ID or DoD facility (remote) is limited to active outpatient prescription entries matched to National Drug File at the originating site and may not include some items such as investigational drugs, compounds, etc. NOT INCLUDED IN THIS LIST: Medications self-entered by the patient into personal health records (i.e. [employer]) are NOT included in this list. Non-VA medications documented outside this ID, remote inpatient orders (regardless of status) and [...] DAY ACETAMINOPHEN (APAP) FROM ALL MEDS. Rx# [id number] Last Released: 10/14/23 Qty/Days Supply: Rx Expiration Date: 10/12/24 Refills Remainin Indication: FOR PAIN OUTPT AMLODIPINE BESYLATE 2.5MG TAB (Status = Active) TAKE ONE TABLET BY MOUTH ONCE A DAY FOR HIGH BLOOD PRESSURE Rx# [id number] Last Released: 11/01/24 Qty/Days Supply: 90 Rx Expiration Date: 02/18/25 [...] DRINK ALCOHOL WHILE TAKING THIS MEDICATION. Rx# [id number] Last Released: 10/20/24 Qty/Days Supply: 180/ Rx Expiration Date: 10/18/25 Refills Remainin Indication: FOR MUSCLE SPASM OUTPT INDOMETHACIN 25MG CAP (Status = Active) TAKE ONE CAPSULE BY MOUTH TWICE A DAY FOR OSTEOARTHRITIS (TAKE WITH FOOD) Rx# [id number] Last Released: 09/02/24 Qty/Days Supply: 180/90 Rx Expiration Date: 06/21/25 Refills Remainin Indication: FOR OSTEOARTHRITIS OUTPT LIDOCAINE 5% PATCH (Status = Active) APPLY 1 PATCH TO SKIN SITE ONCE A DAY FOR LOCAL ANESTHESIA APPLY PATCH AND PRESS FIRMLY FOR 10-15 SECONDS. KEEP ON FOR 12 HOURS THEN REMOVE PATCH FOR 12 HOURS. Rx# [id number] Last Released: 05/06/24 Qty/Days Supply: 90/90 Rx Expiration Date: 05/05/25 Refills Remainin Indication: FOR LOCAL ANESTHESIA OUTPT MONTELUKAST NA 10MG TAB (Status = Active) TAKE ONE TABLET BY MOUTH EVERY EVENING FOR ALLERGIC RHINITIS Rx# [id number] Last Released: 12/18/24 Qty/Days Supply: 9090 Rx Expiration Date: 08/01/25 Refills Remainin Indication: FOR ALLERGIC RHINITIS OUTPT ONDANSETRON HCL 8MG TAB (Status = Active) TAKE ONE-HALF TABLET BY MOUTH ONCE A DAY NEEDED FOR NAUSEA/VOMITING Rx# [id number] Last Released: 01/26/24 Qty/Days Supply: Rx Expiration Date: 01/22/25 Refills Remainin Indication: FOR NAUSEA/VOMITING OUTPT ROPINIROLE HCL 1MG TAB (Status = Active) TAKE ONE TABLET BY MOUTH TWICE DAILY NEEDED FOR RESTLESS LEG SYNDROME Rx# [id number] Last Released: 11/01/24 Qty/Days Supply: 180/90 Rx Expiration Date: 06/16/25 Refills Remainin Indication: FOR RESTLESS LEG SYNDROME OUTPT TRAMADOL HCL 50MG TAB (Status = Discontinued) TAKE 1 TABLET BY MOUTH THREE TIMES A DAY NEEDED FOR PAIN Rx# [id number] Last Released: 12/15/24 Qty/Days Supply: Rx Expiration Date: 06/15/25 Refills Remainin Indication: FOR PAIN OUTPT VENLAFAXINE HCL 75MG 24HR SA CAP (Status = Active) TAKE ONE CAPSULE BY MOUTH ONCE A DAY FOR DEPRESSION WITH FOOD. DO NOT ABRUPTLY DISCONTINUE MEDICATION. Rx# [id number] Last Released: 11/01/24 Qty/Days Supply: Rx Expiration Date: 02/21/25 Refills Remainin Indication: FOR DEPRESSION SUPPLIES OUTPT POISE PAD,MODERATE ABSORB EXTRA COVERAGE (Status = Active) USE/APPLY PAD TO AFFECTED AREA(S) TWICE A DAY FOR INCONTINENCE - FEMALES ONLY Rx# [id number] Last Released: 12/25/24 Qty/Days Supply: Rx Expiration Date: 09/07/25 Refills Remainin Indication: FOR INCONTINENCE PHARMACY TERMS AND POSSIBLE PATIENT ACTIONS INPT = ID inpatient order IV = ID intravenous medication OUTPT = ID outpatient prescription PHARMACY POSSIBLE PATIENT TERMS EXPLANATION ACTIONS -------- ----- ACTIVE A prescription that can be If you have refills, filled at the local ID pharmacy. you may request a refill of [...] more of this picked up at the ID pharmacy medication. window. A prescription which is [...] the [facility]. Or, it may be an ywyw-fyg-qszdtjy (OTC), herbal, dietary supplements or sample medication. [...] An active prescription that is Contact your ID not scheduled to be filled yet. pharmacy [...] report since last visit? NO VITALS: TEMPERATURE: 97.6 F [36.4 C] (12/13/2024 10:58) BP: 119/75 (12/25/2024 15:44) RESP: 18 (12/13/2024 10:58) PULSE: 75 (12/25/2024 15:44) HT: 69.0 in [175.3 cm] (10/31/2024 14:03) WT: 193.6 lb [87.82 kg] (12/25/2024 15:44) BMI: 28.6 PAIN ASSESSMENT: (Most Recent Pain Score in [...] chickenpox, or zoster in last 30 days. Patient reports no pain at this visit. Pain Score = 0. STRESS: Thank you for your service. Now let us serve you. At the [facility], we strive to provide you with exceptional [...] Not At All SPIRITUAL ASSESSMENT: Are there sabianism practices or spiritual concerns you want the supervising floorperson, your physician, and other health care team members to immediately know about? No Patient advised to call the clinic for any concerns, questions, or symptoms. Patient and/or caregiver verbalized understanding of plan of care. Suicide Screen - V: C-SSRS Screening [place] Suicide Severity Rating Scale (C-SSRS) screener 1. Over the past month, have you wished you were or wished you could go to sleep and not wake up? No 2. Over the past month, have you had any actual thoughts of killing yourself? No 3. Over the past month, have you been thinking about how you might do this? Response not required due to responses to other questions. 4. Over the past month, have you had these thoughts and had some intention of acting on them? Response not required due to responses to other questions. 5. Over the past month, have you started to work out or worked out the details of how to kill yourself? Response not required due to responses to other questions. 6. If yes, at any time in the past month did you intend to carry out this plan? Response not required due to responses to other questions. 7. In your lifetime, have you ever done anything, started to do anything, or prepared to do anything to end your life (for example, collected pills, obtained a gun, gave away valuables, went to the roof but didn't jump)? No 8. If YES, was this within the past 3 months? Response not required due to responses to other questions. Sexual Orientation - CP,L,N,P,PH,PS,S,U: The patient thinks of their sexual orientation as: Straight or Heterosexual Depression Screening - V: Perform PHQ-2 A PHQ-2 screen was performed. The score was 0 which is a negative screen for depression. Over the past two weeks, how often have you been bothered by the following problems? 1. Little interest or pleasure in doing things Not at all 2. Feeling down, depressed, or hopeless Not at all /es/ Robin Preciado RN [place] [facility], [facility] Signed: 12/25/2024 16:20 ROBIN PRECIADO [facility] Dec 25, 2024 04:05 PM PRIMARY CARE PROGR ESS NOTE: LOCAL TITLE: PRIMARY CARE CLINIC PROGRESS NOTE PB STANDARD TITLE: PRIMARY CARE PROGRESS NOTE DATE OF NOTE: DEC 25, 2024@16:05 ENTRY DATE: DEC 25, 2024@16:05:10 AUTHOR: JUAN CARLOS BRENNANIGNER: URGENCY: STATUS: COMPLETED PROVIDER ASSESSMENT DATE & TIME:Nov@16:05 CHIEF COMPLAINT: ER follow up for near syncope. HISTORY OF PRESENT ILLNESS: is being seen for ER follow up for near syncope. This started after had taken tramadol for a couple of days for pain. Reyes states she had a full workup and her labs from ER looked great. Veterans er visit is reviewed by myself. Her cardiac workup is also fine. She has not taken anymore tramadol and she has not had another episode. This will be added as an allergy. She and her are also worried about her memory and she is given an MMSE and she scored a 29. We discussed implications for memory deficits. She denies any home needs. Active problems/med list tack puller: 1) Actinic keratosis 2) Arthritis of knee 3) Chronic pain 4) Fkzho-9-jagpdutewds deficiency 5) Obstructive sleep apnea syndrome 6) COPD - Chronic Obstructive Pulmonary Disease ([facility] [id number]) 7) Osteoporosis 8) Multiple nodules of lung 9) Cervical spondylosis 10) Hyperlipidemia ([facility] [id number]) 11) Tremor 12) Restless legs 13) Exposure to potentially hazardous substance 14) Myalgia 15) Bilateral tinnitus 16) Sensorineural hearing loss of bilateral ears Active Outpatient Medications (including Supplies): Active Outpatient [...] NEEDED Indication: FOR RESTLESS LEG SYNDROME 9) TRAMADOL HCL 50MG TAB TAKE 1 TABLET BY MOUTH THREE TIMES A ACTIVE DAY NEEDED Indication: FOR PAIN 10) VENLAFAXINE HCL 75MG 24HR SA CAP TAKE ONE CAPSULE BY MOUTH ACTIVE ONCE A DAY WITH FOOD. DO NOT ABRUPTLY DISCONTINUE MEDICATION. Indication: FOR DEPRESSION Active Non-VA Medications Status 1) Non-VA CEPHALEXIN 500MG CAP 500MG BY MOUTH EVERY 6 HOURS ACTIVE Indication: FOR URINARY TRACT INFECTION 11 Total Medications REVIEW OF SYSTEMS: HEENT: No [...] suicidal. PHYSICAL ASSESSMENT: VITAL SIGNS Pulse: 75 (12/25/2024 15:44) Blood Pressure: 119/75 (12/25/2024 15:44) Respiratory Rate: 18 (12/13/2024 10:58) Temperature: 97.6 F [36.4 C] (12/13/2024 10:58) Weight: 193.6 lb [87.82 kg] (12/25/2024 15:44) Height: 69.0 in [175.3 cm] (10/31/2024 14:03) Pain: 4 (05/09/2024 08:31) HEENT:PERRL, EOMI, Fundi benign, TM's clear, Pharynx not red and without exudate, tonsils normal size. NECK: Supple, no lymhadenopathy, thyroid normal. CARDIAC: Regular rate and rhythm without murmur. No edema. RESPIRATORY: CTA, BEBS GI: Abdomen soft,with ABS, no HSM, no guarding or rebound. MUSCULOSKELETAL:Chronic joint pain with no acute change. SKIN: Spicer without rash or lesions. NEUROLOGICAL: The [place] is alert and oriented without distress. Affect appropriate. IMPRESSION: Near Syncope-current PLAN: Discontinue tramadol. Continue other current medications. Will order carotid ultrasound. Patient is advised this primary care clinic [...] the After Visit Summary was reviewed with [place]; opportunity provided to report concerns and ask [...] Medications Reconciled. Time spent 30 minutes. /sarabjit/ [facility] Signed: 12/28/2024 10:21 JUAN CARLOS BRENNAN
--- OUTSIDE RECORDS SUMMARY | 2024-12-27 04:40 | XMS_ITS | Encounter Summary ---
Author Name [facility] [place] Address [address] [place] [address] Care Team Providers Care Refining Equipment Operator Name Role Phone JUAN CARLOS BRENNAN [...] MEDICARE ADVANTAGE MCR (WNR) Aug 30, 2022 [id number] [phone] MARICHUY TEJADA PATIENT [employer] MCR (WNR) MEDICARE ADVANTAGE MCR (WNR) Aug 30, 2022 [id number] MARICHUY TEJADA PATIENT MEDICARE (WNR) MEDICARE (M) PART A Jun 30, 2017 PART A [id number] [phone] MARICHUY TEJADA PATIENT MEDICARE (WNR) MEDICARE (M) PART B Jun 30, 2017 PART B [id number] [phone] MARICHUY TEJADA PATIENT MEDICARE (WNR) MEDICARE (M) PART A Jun 30, 2017 PART A [id number] MARICHUY TEJADA PATIENT MEDICARE (WNR) MEDICARE (M) PART B Jun 30, 2017 PART B [id number] MARICHUY TEJADA PATIENT [employer] MCR (WNR) MEDICARE ADVANTAGE [facility] (WNR) Sep 30, 2023 [id number] MARICHUY TEJADA PATIENT Selected Encounter This section includes the information on record at [place] for the Encounter. 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 Date/Time Primary/Secondary Diagnosis Diagnosis Name Provider Source Dec 27, 2024 10:06 AM PRIMARY Segmental and somatic dysfunction of cervical region MORRIS RICH [facility] Dec 27, 2024 10:06 AM SECONDARY Cervicalgia MORRIS RICH [facility] Dec 27, 2024 10:06 AM SECONDARY Oth intvrt disc degen, lumbosacr w discog bck & lw extrm pn MORRIS RICH [facility] Dec 27, 2024 10:06 AM SECONDARY Pain in thoracic spine MORRIS RICH [facility] Dec 27, 2024 10:06 AM SECONDARY Segmental and somatic dysfunction of lumbar region MORRIS RICH [facility] Dec 27, 2024 10:06 AM SECONDARY Segmental and somatic dysfunction of pelvic region MORRIS RICH [facility] Dec 27, 2024 10:06 AM SECONDARY Segmental and somatic dysfunction of [...] 20 appointments. The data comes from all [facility]. Appointment Date/Time Appointment Type Appointme nt Facility Name December 28, 2024 10:00 AM [facility] [place] [facility] [place] [facility] January 08, 2025 11:30 AM [facility] [place] [facility] January 08, 2025 12:00 PM [facility] [place] [facility] January 08, 2025 12:01 PM [place] [place] [facility] January 11, 2025 07:30 AM [place] [facility] January 16, 2025 12:15 PM [facility] [place] [facility] January 24, 2025 10:15 AM AM[place] [facility] Jan 31, 2025 09:40 AM [facility] [place] [facility] Jan 31, 2025 10:30 AM [facility] [place] [facility] Feb 14, 2025 09:00 AM [facility] [place] [facility] Feb 14, 2025 09:40 AM [facility] [place] [facility] Mar 06, 2025 09:30 AM [facility] [place] [facility] Mar 06, 2025 10:00 AM [facility] [place] [facility] Mar 07, 2025 10:40 AM [facility] [place] [facility] Mar 21, 2025 09:40 AM [facility] [place] [facility] Mar 29, 2025 10:20 AM [facility] - [facility] [facility] Apr 04, 2025 09:40 AM AMBULATORY - MEDICINE [facility] Active, Pending, and Scheduled Orders This section includes a listing of several types of active, pending, and scheduled orders, including clinic medications orders, diagnostic test orders, procedure orders and consult orders; where the start date of the order is 45 days before the date of the Encounter or 45 days after the date of theEncounter. The data comes from all [facility]. Test Date/Time Test Type Test Details Facility Name Dec 27, 2024 03:42 PM Consult Order [facility] MASSAGE THERAPY [id number] Cons Mission Coordinator's Choice [place] Jan 31, 2025 10:55 AM Consult Order [facility] [id number] Cons Mission Coordinator's Choice [facility] Lab Results: +/- 30 [...] Comment Dec 27, 2024 09:45 AM [facility] TSH (MA-PB) SERUM Specimen Type: SERUM No comment entered. Ordering Provider: JUAN CARLOS BRENNAN Report Released Date/Time: Dec 27, 2024 09:44 AM Reporting Lab: [place] [facility] [address] [place] [address] Performing Lab: [place] [facility] [address] [place] [address] TSH 1.171 u[IU]/mL 0.47-5 Dec 27, 2024 09:45 AM [facility] HGA1C BLOOD Specimen Type: BLOOD No comment entered. Ordering Provider: JUAN CARLOS BRENNAN Report Released Date/Time: Dec 27, 2024 09:44 AM Reporting Lab: [place] [facility] [address] [place] [address] Performing Lab: [place] [facility] [address] [place] [address] HGA1C 5.5 4.0-6.0 Dec 27, 2024 09:45 AM [facility] CHOLESTEROL PANEL (PB) PLASMA Specimen Type: P LASCURT Comment: LDL calculation invalid when Triglyceride exceeds 250 mg/dl Ordering Provider: JUAN CARLOS BRENNAN Report Released Date/Time: Dec 27, 2024 09:44 AM Reporting Lab: [place] [facility] [address] [place] [address] Performing Lab: [place] [facility] [address] [place] [address] CHOLESTEROL 198 mg/dL 0-200 TRIGLYCERIDE 429 mg/dL H 0-150 CALCULATED LDL comment mg/dL HDL(New) 41.3 mg/dL H >40 HDL % OF TOTAL CHOLESTEROL (PB) 20.9 >25 DIRECT LDL(MA) 119.7 mg/dL H 0-99.9 Dec 27, 2024 09:45 AM [facility] VITAMIN D, 25-HYDROXY SERUM Specimen Type: SE RUM No comment entered. Ordering Provider: JUAN CARLOS BRENNAN Report Released Date/Time: Dec 27, 2024 09:44 AM Reporting Lab: [place] [facility] [address] [place] [address] Performing Lab: [place] [facility] [address] [place] [facility] VITAMIN D, 25-HYDROXY 33.7 ng/mL 30-96 Dec 27, 2024 09:45 AM [facility] URINALYSIS (STL-PB) URINE Specimen Type: URIN E No comment entered. Ordering Provider: JUAN CARLOS BRENNAN Report Released Date/Time: Dec 27, 2024 09:44 AM Reporting Lab: [place] [facility] [address] [place] [address] Performing Lab: [place] [facility] [address] [place] [address] URINE COLOR Light Yellow Yellow U.BILIRUBIN NEGATIVE mg/dL Negative U.PH 6.5 5.0-8.0 APPEARANCE CLEAR Clear U.NITRITE NEGATIVE mg/dL Negative URN.GLUCOSE NORMAL mg/dL Negative URN.PROTEIN NEGATIVE mg/dL URN.UROBILINOGEN NORMAL mg/dL Normal URN.BLOOD NEGATIVE mg/dL Negative-Trace URN.KETONES NEGATIVE mg/dL Negative-Trac e URN.LEUK.EST. NEGATIVE Negative-Trace URN.SPECIFIC GRAVITY 1.017 1.005-1.029 Dec 27, 2024 09:45 AM [facility] COMPREHENSIVE METABOLIC PANEL PLASMA Specimen Type: PLASMA Comment: LDL calculation invalid when Triglyceride exceeds 250 mg/dl Ordering Provider: JUAN CARLOS BRENNAN Report Released Date/Time: Dec 27, 2024 09:44 AM Reporting Lab: [place] [facility] [address] [place] [facility] Performing Lab: [place] [facility] [address] [place] [address] CREATININE 0.65 mg/dL 0.6-1.1 UREA NITROGEN 9 [...] 2020) 93 Dec 27, 2024 09:45 AM [facility] CBC BLOOD Specimen Type: BLOOD No comment entered. Ordering Provider: JUAN CARLOS BRENNAN Report Released Date/Time: Dec 27, 2024 09:44 AM Reporting Lab: [place] [facility] [address] [place] [facility] [address] Performing Lab: [place] [facility] [address] [place] [facility] [address] WBC 9.1 10*3/uL 3.6-11.2 RBC 5.17 10*6/uL [...] 0. 00-0.05 Dec 13, 2024 10:59 AM [facility] DRUG SCREEN URINE-inhouse (PB) URINE Specimen Type: URINE No comment entered. Ordering Provider: JUAN CARLOS BRENNAN Report Released Date/Time: Dec 13, 2024 10:48 AM Reporting Lab: [place] [facility] [address] [place] [address] Performing Lab: [place] [facility] [address] [facility] [place] [facility] [address] METHADONE Negative Negative OPIATES (PB) Negative Negative COCAINE... Negative Negative THC(Marijuana... Negative Negative BENZODIAZEPINE (PB) Negative Negative AMPHETAMINE... Negative Negative CREATININE URINE/OTHERS 94.26 mg/dL OXYCODONE (VOIRY-[id number]-ZV) Negative Negati ve BUPRENORPHINE (STL-PB-MA) Negative ng/mL Negative ETHANOL URINE <10 mg/dL L 0-20 FENTANYL, URINE (PB) Negative ng/mL Vital Signs: All taken on the encounter date This section contains inpatient and outpatient Vital Signs collected on the date of the Encounter. Date/Time Temperature Pulse Blood Pressure Respiratory Rate SP02 Pain Height Weight Body Mass Index Source Dec 27, 2024 09:40 AM 98.2 79 144/91 [facility] Social History: Smoking Status (Most current) [...] 21, 2024 10:00 AM VA-TOBACCO FORMER USER [facility] Tobacco Use History This section includes a history of the smoking, or tobacco-related health factors, that were collected on or before the date of the Encounter. The data comes from the [place] facility where the Encounter took place. Date/Time Smoking Status/Tobacco Use Comment F acility January 21, 2024 10:00 AM [place]-TOBACCO QUIT 5 TO < 15 YRS [facility] January 27, 2023 12:31 PM VA-TOBACCO FORMER USER [facility] January 27, 2023 12:31 PM [place]-TOBACCO QUIT 15 YRS OR MORE [facility] [facility] Advance Directives: All historical and current [...] May 14, 2022 ADVANCE DIRECTIVE BERTHA NAZARIO [facility] Feb 05, 2017 ADVANCE DIRECTIVE DISCUSSION PEG SORENSEN [facility] Radiology Reports: +/- 30 days of [...] PM US CAROTID BILATER AL: MARICHUY TEJADA [id number] -1950 F Exm Date: JANUARY 16, 2025@12:23 Req Phys: JUAN CARLOS BRENNAN Loc: OUTSIDE PB-ULTRASOUND (Req'g L Img Loc: OUTSIDE PB-ULTRASOUND Service: Unknown Screen: Patient is unable to answer or is unsure Screen Comment: OUTSIDE STUDY (Case [id number] COMPLETE) US CAROTID BILATERAL (US Detailed) CPT:42946 Reason for Study: Exam imported from outside Clinical History: Original Data for Imported Study Patient Name: Marichuy Tejada Date: 1950 Sex: F Study Date: 01/16/25 Study Time: 12:23:00 Study Description: Carotid Duplex Referring Physician: Eufemia GANDHI Series 1: 49 US files, description: CV carotid duplex BI* [id number] Acquisition site: [place] [id number] Report Status: Electronically Filed Date Reported: FEB 01, 2025 Report: No report text Impression: No impression text VERIFIED BY: / *ELECTRONICALLY FILED* EVERT RENDON [facility] December 28, 2024 10:29 AM CHEST X-RAY, 2 VIE WS: MARICHUY TEJADA [id number] -1950 F Exm Date: DECEMBER 28, 2024@10:29 Req Phys: JUAN CARLOS BRENNAN Loc: PB-MICHAEL PACT [employer] 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 Lungs hyperinflated with emphysematous changes. Apical pleural thickening. There are no infiltrates or effusions. Heart normal size. Plaque thoracic aorta. Degenerative changes thoracic spine. Findings similar previous study dated 08/28/2024. Impression: 1. COPD with apical pleural thickening 2. Findings similar previous study Primary Interpreting Staff: THAD ZHANG, RADIOLOGIST (Art History Instructor, no e-sig) /[facility] THAD ZHANG [facility] Dec 13, 2024 10:10 AM RIBS,RIGHT+CHEST 3 +VIEWS: MARICHUY TEJADA [id number] -1950 F Exm Date: DEC 13, 2024@10:10 Req Phys: MORRIS RICH Loc: PB-MICHAEL CHIRO (Req'g Loc) Img Loc: PB-XRAY [place] Service: [place] [address] (Case [id number] COMPLETE) RIBS,RIGHT+CHEST 3+VIEWS (RAD Detailed) CPT:52244 Proc Modifiers : RIGHT Reason for Study: fell from [facility] Clinical History: Report Status: Verified Date Reported: DEC 13, 2024 Date Verified: DEC 13, 2024 Art History Instructor E-Sig: Report: Chest and right RIBS. Lungs [...] fracture Primary Interpreting Staff: THAD ZHANG RADIOLOGIST (Art History Instructor, no e-sig) /THAD Rogers [facility] Dec 13, 2024 09:55 AM SPINE LUMBOSACRAL 2 OR 3 VIEWS: MARICHUY TEJADA [id number] -1950 F Exm Date: DEC 13, 2024@09:55 Req Phys: MORRIS RICH Loc: PB-MICHAEL CHIRO (Req'g Loc) Img Loc: PB-XRAY [place] Service: [place] [address] (Case [id number] COMPLETE) SPINE LUMBOSACRAL 2 OR 3 VIEWS (RAD Detailed) CPT:98294 Reason for Study: fell off stepladder Clinical History: Report Status: Verified Date Reported: DEC 13, 2024 Date Verified: DEC 13, 2024 Art History Instructor E-Sig: Report: Lumbar spine 3 views. There are degenerative changes with osteophytes and involvement of the facets. Narrowing the L1-2, L2-3 and L3-4 disc spaces. No fracture or dislocation. No evidence of bony destruction. Grade 1 spondylolisthesis L4 on L5. Scoliosis. Plaque in the abdominal aorta. Impression: 1. Moderate degenerative arthritis 2. Narrowing L1-2, L2-3 and L3-4 disc spaces 3. Dxdr-ik-aitbdywv scoliosis 4. Grade 1 spondylolisthesis L4 on L5 Primary Interpreting Staff: THAD ZHANG, RADIOLOGIST (Art History Instructor, no e-sig) /THAD Rogers [facility] Dec 13, 2024 09:55 AM SPINE THORACIC 2 V IEWS: MARICHUY TEJDAA [id number] -1950 F Exm Date: DEC 13, 2024@09:55 Req Phys: MORRIS RICH Loc: PB-MICHAEL CHIRO (Req'g Loc) Img Loc: PB-XRAY [place] Service: [place] [address] (Case [id number] COMPLETE) SPINE THORACIC 2 VIEWS (RAD Detailed) CPT:01173 Reason for Study: fell off stepladder Clinical History: Report Status: Verified Date Reported: DEC 13, 2024 Date Verified: DEC 13, 2024 Art History Instructor E-Sig: Report: Thoracic spine 3 views including [...] spine Primary Interpreting Staff: THAD ZHANG, RADIOLOGIST (Art History Instructor, no e-sig) /THAD Rogers [facility] Encounter Notes: All associated encounter notes This section contains the clinical notes associated to the Encounter. Date/Time Encounter Note(s) Provider Source Dec 27, 2024 09:56 AM CHIROPRACTIC NOTE: [facility] TITLE: CHIROPRACTIC FOLLOW UP NOTE STANDARD TITLE: CHIROPRACTIC NOTE DATE OF NOTE: DEC 27, 2024@09:56 ENTRY DATE: DEC 27, 2024@09:56:45 AUTHOR: MORRIS RICH COSIGNER: URGENCY: STATUS: COMPLETED CHIROPRACTIC FOLLOW-UP VISIT Patient's language preference for health information: Somali Other Communication Methods Needed: SUBJECTIVE: The [place] is a 74 year old FEMALE being seen in the Chiropractic clinic for follow-up visit. The reports going to the local ER over the past weekend due to an adverse reaction to tramadol, which she was recently prescribed due to chronic pain issues. She describe her neck pain as constant on the right side, while her back feels somewhat better with a right hip that is popping in and out with each step. Today, the rates her pain level as [...] restricted in all planes of motion. The [place] experience pain with the restricted AROM. LUMBAR/THORACIC SPINE: MOVEMENT/POSTURE: The [place] ambulates slowly with guarding. SEGMENTAL DYSFUNCTION: Joint [...] and SI joint dysfunction with associated myofascial pain and trigger points. PLAN: This is the fifth follow up treatment for the of a planned six treatments. Due to persistent neck and back pain, we will treat The once every two weeks for six treatments. Submit a massage therapy referral for the with the treatment goals of decreasing muscle spasms and inflammation, while allowing the to coordinate with her PCP to reduce opioid usage due to recent adverse drug reaction. Prognosis: Fair Today's treatment of the consisted [...] exercise program and to commit to a fdc exercise plan. /sarabjit/ [facility] Signed: 12/27/2024 15:42 MORRIS RICH
--- OUTSIDE RECORDS SUMMARY | 2024-12-28 05:00 | XMS_ITS | Encounter Summary ---
Author Name [facility] [place] [facility] [place] Address [address] [place] [address] Care Team Providers Care Cleaner Wall Name Role Phone JUAN CARLOS BRENNAN Primary [...] MEDICARE ADVANTAGE MCR (WNR) Aug 30, 2022 [id number] MARICHUY ARAGON PATIENT [employer] MCR (WNR) MEDICARE ADVANTAGE MCR (WNR) Aug 30, 2022 [id number] MARICHUY ARAGON PATIENT MEDICARE (WNR) MEDICARE (M) PART A Jun 30, 2017 PART A [id number] [phone] MARICHUY ARAGON PATIENT MEDICARE (WNR) MEDICARE (M) PART B Jun 30, 2017 PART B [id number] MARICHUY ARAGON PATIENT MEDICARE (WNR) MEDICARE (M) PART A Jun 30, 2017 PART A [id number] MARICHUY ARAGON PATIENT MEDICARE (WNR) MEDICARE (M) PART B Jun 30, 2017 PART B [id number] MARICHUY ARAGON PATIENT [facility] (WNR) MEDICARE ADVANTAGE [facility] (WNR) Sep 30, 2023 [id number] MARICHUY ARAGON PATIENT Selected Encounter This section includes the information on record at [place] for the Encounter. Date/Time Encounter Type Encounter Description Reason Provider Source December 28, 2024 10:00 AM Outpatient Encounter PRIMARY CARE/MEDICINE ICD-10-CM Z00.00 Encntr for general adult medical exam w/o abnormal findings ANUEL BRENNAN Samara Encounter Template Text not used by [place] Assessments - Encounter Diagnoses This section includes the primary and secondary diagnoses documented for the Encounter. Date/Time Primary/Secondary Diagnosis Diagnosis Name Provider Source December 31, 2024 05:34 PM PRIMARY Encntr for general adult medical exam w/o abnormal findings PATRICK BRENNAN R [facility] December 31, 2024 05:34 PM SECONDARY Chronic obstructive pulmonary disease, unspecified PATRICK BRENNAN NE R [facility] December 31, 2024 05:34 PM SECONDARY Hyperlipidemia, unspecified PATRICK BRENNAN R [facility] December 31, 2024 05:34 PM SECONDARY Obstructive sleep apnea (adult) (pediatric) PATRICK BRENNAN [facility] December 31, 2024 05:34 PM SECONDARY Pain, unspecified PATRICK BRENNAN R [facility] Plan of Treatment: [...] Date/Time Appointment Type Appointme nt Facility Name January 08, 2025 11:30 AM [facility] [place] [facility] [facility] January 08, 2025 12:00 PM [facility] [place] [facility] [facility] January 08, 2025 12:01 PM [place] [facility] January 11, 2025 07:30 AM [facility] [place] [facility] [facility] January 16, 2025 12:15 PM [facility] [place] [facility] January 24, 2025 10:15 AM AMB[place] - [place] [facility] Jan 31, 2025 09:40 AM [facility] [place] [facility] [place] [facility] Jan 31, 2025 10:30 AM [facility] [place] [facility] [place] [facility] Feb 14, 2025 09:00 AM [facility] [place] [facility] [place] [facility] Feb 14, 2025 09:40 AM [facility] [place] [facility] [place] [facility] Mar 06, 2025 09:30 AM [facility] [place] [facility] [place] [facility] Mar 06, 2025 10:00 AM [facility] [place] [facility] [facility] Mar 07, 2025 10:40 AM [facility] [place] [facility] [facility] Mar 21, 2025 09:40 AM [facility] [place] [facility] [facility] Mar 29, 2025 10:20 AM [facility] [facility] Apr 04, 2025 09:40 AM AMBULATORY - MEDICINE [facility] Active, Pending, and Scheduled Orders This section includes a listing of several types of active, pending, and scheduled orders, including clinic medications orders, diagnostic test orders, procedure orders and consult orders; where thestart date of the order is 45 days before the date of the Encounter or 45 days after the date of the Encounter. The data comes from all [place] treatment [facility]. Test Date/Time Test Type Test Details Facility Name Dec 27, 2024 03:42 PM Consult Order [facility] MASSAGE THERAPY [id number] Cons [place] [facility] [place] [facility] Jan 31, 2025 10:55 AM Consult Order [facility] [id number] Cons [place] [facility] Lab Results: +/- 30 days of the encounter This section includes the Chemistry and Hematology Lab Results on record with [place] for the patient. Radiology Reports and Pathology Reports are provided separately, in subsequent sections. Lab Results This section contains the Chemistry/Hematology Results that were resulted 30 days before or 30 daysafter the date of the Encounter. Date/Time Source Result Type Result - Unit Interpretation Reference Range Specimen Type Comment Dec 27, 2024 09:45 AM [facility] HGA1C BLOOD Specimen Type: BLOOD No comment entered. Ordering Provider: JUAN CARLOS BRENNAN Report Released Date/Time: Dec 27, 2024 09:44 AM Reporting Lab: [place] [facility] [address] [place] [address] Performing Lab: [place] [facility] [address] [place] [address] HGA1C 5.5 4.0-6.0 Dec 27, 2024 09:45 AM [facility] TSH (MA-PB) SERUM Specimen Typ e: SERUM No comment entered. Ordering Provider: JUAN CARLOS BRENNAN Report Released Date/Time: Dec 27, 2024 09:44 AM Reporting Lab: [place] [facility] [address] [place] [address] Performing Lab: [place] [facility] [address] [place] [address] TSH 1.171 u[IU]/mL 0.47-5 Dec 27, 2024 09:45 AM [facility] VITAMIN D, 25-HYDROXY SERUM Specimen Type: SE RUM No comment entered. Ordering Provider: JUAN CARLOS BRENNAN Report Released Date/Time: Dec 27, 2024 09:44 AM Reporting Lab: [place] [facility] [address] [place] [address] Performing Lab: [place] [facility] [address] [place] [address] VITAMIN D, 25-HYDROXY 33.7 ng/mL 30-96 Dec 27, 2024 09:45 AM [facility] CHOLESTEROL PANEL (PB) PLASMA Specimen Type: P SELAM Comment: LDL calculation invalid when Triglyceride exceeds 250 mg/dl Ordering Provider: JUAN CARLOS BRENNAN Report Released Date/Time: Dec 27, 2024 09:44 AM Reporting Lab: [place] [facility] [address] [place] [address] Performing Lab: [place] [facility] [address] [place] [address] CHOLESTEROL 198 mg/dL 0-200 TRIGLYCERIDE 429 mg/dL H 0-150 CALCULATED LDL comment mg/dL HDL(New) 41.3 mg/dL H >40 HDL % OF TOTAL CHOLESTEROL (PB) 20.9 >25 DIRECT LDL(MA) 119.7 mg/dL H 0-99.9 Dec 27, 2024 09:45 AM [facility] URINALYSIS (STL-PB) URINE Specimen Type: URIN E No comment entered. Ordering Provider: JUAN CARLOS BRENNAN Report Released Date/Time: Dec 27, 2024 09:44 AM Reporting Lab: [place] [facility] [address] [facility] [place] [id number] Performing Lab: [place] [facility] [address] [facility] [place] [id number] URINE COLOR Light Yellow Yellow U.BILIRUBIN NEGATIVE mg/dL Negative U.PH 6.5 5.0-8.0 APPEARANCE CLEAR Clear U.NITRITE NEGATIVE mg/dL Negative URN.GLUCOSE NORMAL mg/dL Negative URN.PROTEIN NEGATIVE mg/dL URN.UROBILINOGEN NORMAL mg/dL Normal URN.BLOOD NEGATIVE mg/dL Negative-Trace URN.KETONES NEGATIVE mg/dL Negative-Trac e URN.LEUK.EST. NEGATIVE Negative-Trace URN.SPECIFIC GRAVITY 1.017 1.005-1.029 Dec 27, 2024 09:45 AM [facility] COMPREHENSIVE METABOLIC PANEL PLASMA Specimen Type: PLASMA Comment: LDL calculation invalid when Triglyceride exceeds 250 mg/dl Ordering Provider: JUAN CARLOS BRENNAN Report Released Date/Time: Dec 27, 2024 09:44 AM Reporting Lab: [place] [facility] [address] [facility] [place] [id number] Performing Lab: [place] [facility] [address] [facility] [place] [id number] CREATININE 0.65 mg/dL 0.6-1.1 UREA NITROGEN 9 [...] AM [facility] CBC BLOOD Specimen Type: BLOOD No comment entered. Ordering Provider: JUAN CARLOS BRENNAN Report Released Date/Time: Dec 27, 2024 09:44 AM Reporting Lab: [place] [facility] [address] [place] [address] Performing Lab: [place] [facility] [address] [place] [address] WBC 9.1 10*3/uL 3.6-11.2 RBC 5.17 10*6/uL [...] 0. 00-0.05 Dec 13, 2024 10:59 AM [facility] DRUG SCREEN URINE-inhouse (PB) URINE Specimen Type: URINE No comment entered. Ordering Provider: JUAN CARLOS BRENNAN Report Released Date/Time: Dec 13, 2024 10:48 AM Reporting Lab: [place] [facility] [address] [place] [address] Performing Lab: [place] [facility] [address] [place] [address] METHADONE Negative Negative OPIATES (PB) Negative Negative COCAINE... Negative Negative THC(Marijuana... Negative Negative BENZODIAZEPINE (PB) Negative Negative AMPHETAMINE... Negative Negative CREATININE URINE/OTHERS 94.26 mg/dL OXYCODONE (MKAVA-JLT-CK) Negative Negati ve BUPRENORPHINE (STL-PB-MA) Negative ng/mL Negative ETHANOL URINE <10 mg/dL L 0-20 FENTANYL, URINE (PB) Negative ng/mL Vital Signs: All taken on the encounter date This section contains inpatient and outpatient Vital Signs collected on the date of the Encounter. Date/Time Temperature Pulse Blood Pressure Respiratory Rate SP02 Pain Height Weight Body Mass Index Source December 28, 2024 10:09 AM 97.5 93 118/70 18 98 193.4 29 [facility] Social History: Smoking Status (Most [...] Facil ity January 21, 2024 10:00 AM [place]-TOBAC[place] FORMER USER [facility] Tobacco Use History This section includes a history of the smoking, or tobacco-related health factors, that were collected on or before the date of the Encounter. The data comes from the [place] facility where the Encounter took place. Date/Time Smoking Status/Tobacco Use Comment F acility January 21, 2024 10:00 AM [place]-TOBACCO QUIT 5 TO < 15 YRS [facility] January 27, 2023 12:31 PM [place]-TOBAC[place] FORMER USER [facility] January 27, 2023 12:31 PM [place]-TO[place]AC[place] QUIT 15 YRS OR MORE [facility] [...] DIRECTIVE BERTHA NAZARIO [facility] Feb 05, 2017 ADVANCE DIRECTIVE DISCUSSION PEG SORENSEN [facility] Radiology Reports: +/- 30 days [...] 2025 12:23 PM US CAROTID BILATER AL: MAHESH,MARICHUYTYLER ZUNIGA [id number] -1950 F Exm Date: JANUARY 16, 2025@12:23 Req Phys: JUAN CARLOS BRENNAN Loc: OUTSIDE PB-ULTRASOUND (Req'g L Img Loc: OUTSIDE PB-ULTRASOUND Service: Unknown Screen: Patient is unable to answer or is unsure Screen Comment: OUTSIDE STUDY (Case [id number] COMPLETE) US CAROTID BILATERAL (US Detailed) CPT:50711 Reason for Study: Exam imported from outside Clinical History: Original Data for Imported Study Patient Name: Marichuy Aragon Date: 1950 Sex: F Study Date: 01/16/25 Study Time: 12:23:00 Study Description: Carotid Duplex Referring Physician: Eufemia GANDHI Series 1: 49 US files, description: CV carotid duplex BI* [id number] Acquisition site: [place] [address] Report Status: Electronically Filed Date Reported: FEB 01, 2025 Report: No report text Impression: No impression text VERIFIED BY: / *ELECTRONICALLY FILED* EVERT SANTIAGO [facility] December 28, 2024 10:29 AM CHEST X-RAY, 2 VIE WS: MARICHUY ARAGON [id number] -1950 F Exm Date: DECEMBER 28, 2024@10:29 Req Phys: JUAN CARLOS BRENNAN Loc: PB-MICHAEL PACT JAMES MATHIAS WH (Req Img Loc: PB-XRAY [place] Service: [place] [address] (Case [id number] COMPLETE) CHEST X-RAY, 2 VIEWS (RAD Detailed) CPT:49785 Reason for Study: screening Clinical History: surgery clearance Report Status: Verified Date Reported: DECEMBER 28, 2024 Date Verified: DECEMBER 28, 2024 Taxation Inspector E-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 Lungs hyperinflated with emphysematous changes. Apical pleural thickening. There are no infiltrates or effusions. Heart normal size. Plaque thoracic aorta. Degenerative changes thoracic spine. Findings similar previous study dated 08/28/2024. Impression: 1. COPD with apical pleural thickening 2. Findings similar previous study Primary Interpreting Staff: THAD ZHANG, RADIOLOGIST (Taxation Inspector, no e-sig) /TAHD Saravia [facility] [facility] Dec 13, 2024 10:10 AM RIBS,RIGHT+CHEST 3 +VIEWS: MARICHUY ARAGON [id number] -1950 F Exm Date: DEC 13, 2024@10:10 Req Phys: MORRIS RICH Loc: PB-MICHAEL CHIRO (Req'g Loc) Img Loc: PB-XRAY [place] Service: [place] [address] (Case [id number] COMPLETE) RIBS,RIGHT+CHEST 3+VIEWS (RAD Detailed) CPT:27798 Proc Modifiers : RIGHT Reason for Study: fell from [facility] Clinical History: Report Status: Verified Date Reported: DEC 13, 2024 Date Verified: DEC 13, 2024 Taxation Inspector E-Sig: Report: Chest and right RIBS. Lungs [...] fracture Primary Interpreting Staff: THAD ZHANG, RADIOLOGIST (Taxation Inspector, no e-sig) /THAD Rogers [facility] Dec 13, 2024 09:55 AM SPINE LUMBOSACRAL 2 OR 3 VIEWS: MARICHUY ARAGON NADIA [id number] -1950 F Exm Date: DEC 13, 2024@09:55 Req Phys: MORRIS RICH Loc: PB-MICHAEL CHIRO (Req'g Loc) Img Loc: PB-XRAY [place] Service: [place] [address] (Case [id number] COMPLETE) SPINE LUMBOSACRAL 2 OR 3 VIEWS (RAD Detailed) CPT:45162 Reason for Study: fell off stepladder Clinical History: Report Status: Verified Date Reported: DEC 13, 2024 Date Verified: DEC 13, 2024 Taxation Inspector E-Sig: Report: Lumbar spine 3 views. There are degenerative changes with osteophytes and involvement of the facets. Narrowing the L1-2, L2-3 and L3-4 disc spaces. No fracture or dislocation. No evidence of bony destruction. Grade 1 spondylolisthesis L4 on L5. Scoliosis. Plaque in the abdominal aorta. Impression: 1. Moderate degenerative arthritis 2. Narrowing L1-2, L2-3 and L3-4 disc spaces 3. Xyue-fj-qtqdnrnc scoliosis 4. Grade 1 spondylolisthesis L4 on L5 Primary Interpreting Staff: THAD ZHANG, RADIOLOGIST (Taxation Inspector, no e-sig) /THAD Rogers [facility] Dec 13, 2024 09:55 AM SPINE THORACIC 2 V IEWS: MAHESHDWAYNEMARICHUYTYLER ZUNIGA [id number] -1950 F Exm Date: DEC 13, 2024@09:55 Req Phys: MORRIS RICH Loc: PB-MICHAEL CHIRO (Req'g Loc) Img Loc: PB-XRAY [place] Service: [place] [address] (Case [id number] COMPLETE) SPINE THORACIC 2 VIEWS (RAD Detailed) CPT:59762 Reason for Study: fell off stepladder Clinical History: Report Status: Verified Date Reported: DEC 13, 2024 Date Verified: DEC 13, 2024 Taxation Inspector E-Sig: Report: Thoracic spine 3 views including [...] spine Primary Interpreting Staff: THAD ZHANG, RADIOLOGIST (Taxation Inspector, no e-sig) /THAD Rogers [facility] Encounter Notes: All associated encounter notes This section contains the clinical notes associated to the Encounter. Date/Time Encounter Note(s) Provider Source December 28, 2024 10:36 AM PRIMARY CARE NURSI NG NOTE: LOCAL TITLE: PRIMARY CARE NURSING PROGRESS NOTE (TEXT) NURSING P STANDARD TITLE: PRIMARY CARE NURSING NOTE DATE OF NOTE: DECEMBER 28, 2024@10:36 ENTRY DATE: DECEMBER 28, 2024@10:36:54 AUTHOR: ROBIN PRECIADO COSIGNER: URGENCY: STATUS: COMPLETED Established Patient MARICHUY ARAGON IS A 74 YEAR OLD FEMALE BEING SEEN IN CLINIC DECEMBER 28, 2024. == == REASON FOR VISIT: Annual appt Are you receiving care any where other than the [facility]? No HEALTH AND SURGICAL HISTORY: Does patient report using home oxygen? CURRENT ACTIVE MEDICATIONS FOR REVIEW: If the list for review does not include a component, then it was not applicable to this patient. Allergies/ADRs (Tool #5) FACILITY ALLERGY/ADR -------- [facility] ALBUTEROL [facility] ALBUTEROL [facility] CODEINE [facility] LISINOPRIL [facility] TRAMADOL Med. Reconciliation (Tool #1) INCLUDED IN THIS LIST: Alphabetical list of active outpatient prescriptions dispensed from this [place] (local) and dispensed from another [place] or [facility] facility (remote) as well as inpatient orders (local pending and active), local clinic medications, locally documented non-VA medications, and local prescriptions that have or been discontinued in the past 90 days. Non-VA Meds Last Documented On: January 06, 2024 NOTE The display of VA prescriptions dispensed from another [place] or [facility] facility (remote) is limited to active outpatient prescription entries matched to National Drug File at the originating site and may not include some items such as investigational drugs, compounds, etc. NOT INCLUDED IN THIS LIST: Medications self-entered by the patient into personal health records (i.e. [employer]) are NOT included in this list. Non-VA medications documented outside this [place], remote inpatient orders (regardless of status) and [...] DAY ACETAMINOPHEN (APAP) FROM ALL MEDS. Rx# [id number] Last Released: 10/14/23 Qty/Days Supply: Rx Expiration Date: 10/12/24 Refills Remainin Indication: FOR PAIN OUTPT AMLODIPINE BESYLATE 2.5MG TAB (Status = Active) TAKE ONE TABLET BY MOUTH ONCE A DAY FOR HIGH BLOOD PRESSURE Rx# [id number] Last Released: 11/01/24 Qty/Days Supply: 90 Rx Expiration Date: 02/18/25 Refills Remainin Indication: FOR HIGH BLOOD PRESSURE Non-VA CEPHALEXIN 500MG CAP TAKE 1 CAPSULE BY MOUTH EVERY 6 HOURS January 06, 2024 VA RX: Non-VA medication recommended by VA provider Indication: FOR URINARY TRACT INFECTION OUTPT CYCLOBENZAPRINE HCL 10MG TAB (Status = Active/Suspended) TAKE ONE TABLET BY MOUTH TWICE DAILY NEEDED FOR MUSCLE SPASM MAY CAUSE DROWSINESS. DO NOT DRINK ALCOHOL WHILE TAKING THIS MEDICATION. Rx# [id number] Last Released: 10/20/24 Qty/Days Supply: 180 Rx Expiration Date: 10/18/25 Refills Remainin Indication: FOR MUSCLE SPASM OUTPT INDOMETHACIN 25MG CAP (Status = Active) TAKE ONE CAPSULE BY MOUTH TWICE A DAY FOR OSTEOARTHRITIS (TAKE WITH FOOD) Rx# [id number] Last Released: 09/02/24 Qty/Days Supply: 180/90 Rx Expiration Date: 06/21/25 Refills Remainin Indication: FOR OSTEOARTHRITIS OUTPT LIDOCAINE 5% PATCH (Status = Active) APPLY 1 PATCH TO SKIN SITE ONCE A DAY FOR LOCAL ANESTHESIA APPLY PATCH AND PRESS FIRMLY FOR 10-15 SECONDS. KEEP ON FOR 12 HOURS THEN REMOVE PATCH FOR 12 HOURS. Rx# [id number] Last Released: 05/06/24 Qty/Days Supply: Rx Expiration Date: 05/05/25 Refills Remainin Indication: FOR LOCAL ANESTHESIA OUTPT MONTELUKAST NA 10MG TAB (Status = Active) TAKE ONE TABLET BY MOUTH EVERY EVENING FOR ALLERGIC RHINITIS Rx# [id number] Last Released: 12/18/24 Qty/Days Supply: 90/ Rx Expiration Date: 08/01/25 Refills Remainin Indication: FOR ALLERGIC RHINITIS OUTPT ONDANSETRON HCL 8MG TAB (Status = Active) TAKE ONE-HALF TABLET BY MOUTH ONCE A DAY NEEDED FOR NAUSEA/VOMITING Rx# [id number] Last Released: 01/26/24 Qty/Days Supply: Rx Expiration Date: 01/22/25 Refills Remainin Indication: FOR NAUSEA/VOMITING OUTPT ROPINIROLE HCL 1MG TAB (Status = Active) TAKE ONE TABLET BY MOUTH TWICE DAILY NEEDED FOR RESTLESS LEG SYNDROME Rx# [id number] Last Released: 11/01/24 Qty/Days Supply: 180 Rx Expiration Date: 06/16/25 Refills Remainin Indication: FOR RESTLESS LEG SYNDROME OUTPT TRAMADOL HCL 50MG TAB (Status = Discontinued) TAKE 1 TABLET BY MOUTH THREE TIMES A DAY NEEDED FOR PAIN Rx# [id number] Last Released: 12/15/24 Qty/Days Supply: Rx Expiration Date: 06/15/25 Refills Remainin Indication: FOR PAIN OUTPT VENLAFAXINE HCL 75MG 24HR SA CAP (Status = Active) TAKE ONE CAPSULE BY MOUTH ONCE A DAY FOR DEPRESSION WITH FOOD. DO NOT ABRUPTLY DISCONTINUE MEDICATION. Rx# [id number] Last Released: 11/01/24 Qty/Days Supply: Rx Expiration Date: 02/21/25 Refills Remainin Indication: FOR DEPRESSION SUPPLIES OUTPT POISE PAD,MODERATE ABSORB EXTRA COVERAGE (Status = Active) USE/APPLY PAD TO AFFECTED AREA(S) TWICE A DAY FOR INCONTINENCE - FEMALES ONLY Rx# [id number] Last Released: 12/25/24 Qty/Days Supply: Rx Expiration Date: 09/07/25 Refills Remainin Indication: FOR INCONTINENCE PHARMACY TERMS AND POSSIBLE PATIENT ACTIONS INPT = [place] inpatient order IV = [facility] intravenous medication OUTPT = [place] outpatient prescription PHARMACY POSSIBLE PATIENT TERMS EXPLANATION ACTIONS -------- ----- ACTIVE A prescription that can be If you have refills, filled at the local VA pharmacy. you may request a refill of this prescription from your [place] pharmacy. CLINIC A medication you received during If you have questions a visit to a VA clinic or about this medication emergency department. contact your VA healthcare team. DISCONTINUED A prescription your provider has Contact your [facility] stopped. It is no longer healthcare team if you available to be sent to you or need more of this picked up at the [place] pharmacy medication. window. A prescription which is [...] the VA. Or, it may be an xmhg-ijl-liggzlk (OTC), herbal, dietary supplements or sample medication. [...] An active prescription that is Contact your [place] not scheduled to be filled yet. pharmacy [...] report since last visit? NO VITALS: TEMPERATURE: 97.5 F [36.4 C] (12/28/2024 10:09) BP: 118/70 (12/28/2024 10:09) RESP: 18 (12/28/2024 10:09) PULSE: 93 (12/28/2024 10:09) HT: 69.0 in [175.3 cm] (10/31/2024 14:03) WT: 193.4 lb [87.72 kg] (12/28/2024 10:09) BMI: 28.6 PAIN ASSESSMENT: (Most Recent Pain [...] Now let us serve you. At the [facility], we strive to provide you with [...] Not At All SPIRITUAL ASSESSMENT: Are there nondenominational practices or spiritual concerns you want the healthcare sales representative, your physician, and other health care team members to immediately know about? No Patient advised to call the clinic for any concerns, questions, or symptoms. Patient and/or caregiver verbalized understanding of plan of care. /sarabjit/ Robin Preciado RN [place] [facility], [facility] Signed: 12/28/2024 10:37 [facility] December 28, 2024 10:26 AM PRIMARY CARE PROGR ESS NOTE: LOCAL TITLE: PRIMARY CARE CLINIC PROGRESS NOTE PB STANDARD TITLE: PRIMARY CARE PROGRESS NOTE DATE OF NOTE: DECEMBER 28, 2024@10:26 ENTRY DATE: DECEMBER 28, 2024@10:26:22 AUTHOR: JUAN CARLOS BRENNAN COSIGNER: URGENCY: STATUS: COMPLETED PROVIDER ASSESSMENT DATE & TIME:December@10:26 CHIEF COMPLAINT: Annual and surgery clearance. HISTORY OF PRESENT ILLNESS: Reyes is being seen for her annual physical and labs. Reyes has not had any more passing out feelings since she stopped the tramadol. Reyes is having surgery January 09 on her left shoulder and needs surgical clearance faxed to [facility] Orthopedics. Reyes states that she is on a weekly medication for osteoporosis. Kyle denies any other needs. Active problems/med list focus puller: 1) Actinic keratosis 2) Arthritis of knee 3) Chronic pain 4) Sosox-0-dqbxndtbuxj deficiency 5) Obstructive sleep apnea syndrome 6) COPD - Chronic Obstructive Pulmonary Disease ([facility] [id number]) 7) Osteoporosis 8) Multiple nodules of lung 9) Cervical spondylosis 10) Hyperlipidemia ([facility] [id number]) 11) Tremor 12) Restless legs 13) Exposure to potentially hazardous substance 14) Myalgia 15) Bilateral tinnitus 16) Sensorineural hearing loss of bilateral ears Active Outpatient Medications (including Supplies): Active Outpatient Medications Status 1) AMLODIPINE BESYLATE 2.5MG TAB TAKE ONE TABLET BY MOUTH ONCE ACTIVE A DAY Indication: FOR HIGH BLOOD PRESSURE 2) CYCLOBENZAPRINE HCL 10MG TAB TAKE ONE TABLET BY MOUTH TWICE ACTIVE (S) DAILY NEEDED MAY CAUSE DROWSINESS. DO NOT [...] Not suicidal. PHYSICAL ASSESSMENT: VITAL SIGNS Pulse: 93 (12/28/2024 10:09) Blood Pressure: 118/70 (12/28/2024 10:09) Respiratory Rate: 18 (12/28/2024 10:09) Temperature: 97.5 F [36.4 C] (12/28/2024 10:09) Weight: 193.4 lb [87.72 kg] (12/28/2024 10:09) Height: 69.0 in [175.3 cm] (10/31/2024 14:03) Pain: 4 (05/09/2024 08:31) HEENT:PERRL, EOMI, Fundi benign, TM's clear, Pharynx not red and without exudate, tonsils normal size. NECK: Supple, no lymhadenopathy, thyroid normal. CARDIAC: Regular rate and rhythm without murmur. No edema. RESPIRATORY: CTA, BEBS GI: Abdomen soft,with ABS, no HSM, no guarding or rebound. MUSCULOSKELETAL:Chronic joint pain with no acute change. FROM. SKIN: [place] without rash or lesions. NEUROLOGICAL: The Kyle is alert and oriented without distress. Affect appropriate. IMPRESSION: Encounter for General Adult Medical Exam COPD-chronic Sleep Apnea-chronic Hyperlipidemia-stable Chronic Pain-chronic PLAN: Increase water intake. Continue current medications. Lab review and copy provided to . Monthly self breast exam. Chest xray today. Will provide medical clearance to [facility] for surgery. RTC in one year or sooner if needed. Patient is advised this primary care clinic [...] the After Visit Summary was reviewed with Kyle; opportunity provided to report concerns and ask [...] 30 minutes. /sarabjit/ [facility] Signed: 12/31/2024 17:32 JUAN CARLOS BRENNAN
--- OUTSIDE RECORDS SUMMARY | 2025-01-05 09:22 | XMS_ITS | Encounter Summary ---
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 Name Role Phone JUAN CARLOS BRENNAN [...] MEDICARE ADVANTAGE MCR (WNR) Aug 30, 2022 [id number] [phone] GERDA TEJADA PATIENT [employer] MCR (WNR) MEDICARE ADVANTAGE MCR (WNR) Aug 30, 2022 [id number] GERDA TEJADA PATIENT MEDICARE (WNR) MEDICARE (M) PART A Jun 30, 2017 PART A [id number] [phone] GERDA TEJADA PATIENT MEDICARE (WNR) MEDICARE (M) PART B Jun 30, 2017 PART B [id number] [phone] GERDA TEJDAA PATIENT MEDICARE (WNR) MEDICARE (M) PART A Jun 30, 2017 PART A [id number] GERDA TEJADA PATIENT MEDICARE (WNR) MEDICARE (M) PART B Jun 30, 2017 PART B [id number] GERDA TEJADA PATIENT WE[employer] MCR (WNR) MEDICARE ADVANTAGE [facility] (WNR) Sep 30, 2023 [id number] [phone] GERDA TEJADA PATIENT Selected Encounter This section includes the information on record at NH for the Encounter. Date/Time Encounter Type Encounter Description Reason Pro vider Source January 05, 2025 02:22 PM Outpatient Encounter ADMIN PAT ACTIVTIES (MASNONCT) IHE Encounter Template Text not used by NH Plan of Treatment: Future Appointments (+ 6 months) and Future Tests (+/- 45 days) The Plan of Treatment section includes future care activities for the patient from all NH treatmentfacilities. This section includes future appointments and future orders which are active, pending or scheduled. Future Appointments This section includes appointments that were scheduled to occur 6 months from the date of the Encounter, up to a maximum of 20 appointments. The data comes from all NH treatment facilities. Appointment Date/Time Appointment Type Appointme nt Facility Name January 08, 2025 11:30 AM AMBULATORY - MEDICINE [facility] January 08, 2025 12:00 PM AMBULATORY - MEDICINE [facility] January 08, 2025 12:01 PM AM[place]ORY [place]IC[place] [facility] January 11, 2025 07:30 AM AMBULATORY - [place]IC[place] [facility] January 16, 2025 12:15 PM AMBULATORY - MEDIC[place] [facility] January 24, 2025 10:15 AM AMBULATORY - NONE [place] [facility] Jan 31, 2025 09:40 AM AMBULATORY - MEDICINE [facility] Jan 31, 2025 10:30 AM AMBULATORY - MEDICINE [facility] Feb 14, 2025 09:00 AM AMBULATORY - MEDICINE [facility] Feb 14, 2025 09:40 AM AMBULATORY - MEDICINE [facility] Mar 06, 2025 09:30 AM AMBULATORY - MEDICINE [facility] Mar 06, 2025 10:00 AM AMBULATORY - MEDICINE [facility] Mar 07, 2025 10:40 AM AMBULATORY - MEDICINE [facility] Mar 21, 2025 09:40 AM AMBULATORY - MEDICINE [facility] Mar 29, 2025 10:20 AM AMBULATORY - MEDICINE [place] [facility] Apr 04, 2025 09:40 AM AMBULATORY - MEDICINE [facility] Active, Pending, and Scheduled Orders This section includes a listing of several types of active, pending, and scheduled orders, including clinic medications orders, diagnostic test orders, procedure orders and consult orders; where the start date of the order is 45 days before the date of the Encounter or 45 days after the date of theEncounter. The data comes from all NH treatment facilities. Test Date/Time Test Type Test Details Facility Name Dec 27, 2024 03:42 PM Consult Order [facility] [id number] Cons Instrument Maker's Choice [facility] Jan 31, 2025 10:55 AM Consult Order [facility] [id number] Cons Instrument Maker's [facility] Lab Results: +/- 30 days of the encounter This section includes the Chemistry and Hematology Lab Results on record with NH for the patient. Radiology Reports and Pathology Reports are provided separately, in subsequent sections. Lab Results This section contains the Chemistry/Hematology Results that were resulted 30 days before or 30 daysafter the date of the Encounter. Date/Time Source Result Type Result - Unit Interpretation Reference Range Specimen Type Comment Dec 27, 2024 09:45 AM [facility] TSH (MA-PB) SERUM Specimen Type: SERUM No comment entered. Ordering Provider: JUAN CARLOS BRENNAN Report Released Date/Time: Dec 27, 2024 09:44 AM Reporting Lab: [place] [facility] [address] [place] [address] Performing Lab: [place] [facility] [address] [place] [address] TSH 1.171 u[IU]/mL 0.47-5 Dec 27, 2024 09:45 AM [facility] HGA1C BLOOD Specimen Type: BLOOD No comment entered. Ordering Provider: JUAN CARLOS BRENNAN Report Released Date/Time: Dec 27, 2024 09:44 AM Reporting Lab: [place] [facility] [address] [place] [address] Performing Lab: [place] [facility] [address] [place] [address] HGA1C 5.5 4.0-6.0 Dec 27, 2024 09:45 AM [facility] VITAMIN D, 25-HYDROXY SERUM Specimen Type: SE RUM No comment entered. Ordering Provider: JUAN CARLOS BRENNAN Report Released Date/Time: Dec 27, 2024 09:44 AM Reporting Lab: [place] [facility] [address] [place] [address] Performing Lab: [place] [facility] [address] [place] [id number] VITAMIN D, 25-HYDROXY 33.7 ng/mL 30-96 Dec 27, 2024 09:45 AM [facility] CHOLESTEROL PANEL (PB) PLASMA Specimen Type: P SELAM Comment: LDL calculation invalid when Triglyceride exceeds 250 mg/dl Ordering Provider: JUAN CARLOS BRENNAN Report Released Date/Time: Dec 27, 2024 09:44 AM Reporting Lab: [place] [facility] [address] [place] [id number] Performing Lab: [place] [facility] [address] [place] [id number] CHOLESTEROL 198 mg/dL 0-200 TRIGLYCERIDE 429 mg/dL H 0-150 CALCULATED LDL comment mg/dL HDL(New) 41.3 mg/dL H >40 HDL % OF TOTAL CHOLESTEROL (PB) 20.9 >25 DIRECT LDL(MA) 119.7 mg/dL H 0-99.9 Dec 27, 2024 09:45 AM [facility] URINALYSIS (STL-PB) URINE Specimen Type: URIN E No comment entered. Ordering Provider: JUAN CARLOS BRENNAN Report Released Date/Time: Dec 27, 2024 09:44 AM Reporting Lab: [place] [facility] [address] [place] [id number] Performing Lab: [place] [facility] [address] [place] [id number] URINE COLOR Light Yellow Yellow U.BILIRUBIN NEGATIVE mg/dL Negative U.PH 6.5 5.0-8.0 APPEARANCE CLEAR Clear U.NITRITE NEGATIVE mg/dL Negative URN.GLUCOSE NORMAL mg/dL Negative URN.PROTEIN NEGATIVE mg/dL URN.UROBILINOGEN NORMAL mg/dL Normal URN.BLOOD NEGATIVE mg/dL Negative-Trace URN.KETONES NEGATIVE mg/dL Negative-Trac e URN.LEUK.EST. NEGATIVE Negative-Trace URN.SPECIFIC GRAVITY 1.017 1.005-1.029 Dec 27, 2024 09:45 AM [facility] COMPREHENSIVE METABOLIC PANEL PLASMA Specimen Type: PLASMA Comment: LDL calculation invalid when Triglyceride exceeds 250 mg/dl Ordering Provider: JUAN CARLOS BRENNAN Report Released Date/Time: Dec 27, 2024 09:44 AM Reporting Lab: [place] [facility] [address] [place] [address] Performing Lab: [place] [facility] [address] [facility] [place] [address] CREATININE 0.65 mg/dL 0.6-1.1 UREA NITROGEN 9 [...] 2020) 93 Dec 27, 2024 09:45 AM [facility] CBC BLOOD Specimen Type: BLOOD No comment entered. Ordering Provider: JUAN CARLOS BRENNAN Report Released Date/Time: Dec 27, 2024 09:44 AM Reporting Lab: [place] [facility] [address] [place] [address] Performing Lab: [place] [facility] [address] [place] [id number] WBC 9.1 10*3/uL 3.6-11.2 RBC 5.17 10*6/uL [...] 0. 00-0.05 Dec 13, 2024 10:59 AM [facility] DRUG SCREEN URINE-inhouse (PB) URINE Specimen Type: URINE No comment entered. Ordering Provider: JUAN CARLOS BRENNAN Report Released Date/Time: Dec 13, 2024 10:48 AM Reporting Lab: [facility] [address] [facility] [address] Performing Lab: [facility] [address] [facility] [address] METHADONE Negative Negative OPIATES (PB) Negative Negative COCAINE... Negative Negative THC(Marijuana... Negative Negative BENZODIAZEPINE (PB) Negative Negative AMPHETAMINE... Negative Negative CREATININE URINE/OTHERS 94.26 mg/dL OXYCODONE (OGPWO-GDB-YV) Negative Negati ve BUPRENORPHINE (STL-PB-MA) Negative ng/mL Negative ETHANOL URINE <10 mg/dL L 0-20 FENTANYL, URINE (PB) Negative ng/mL Social History: Smoking Status (Most current) and Tobacco Use (All prior to encounter date) This section includes the most current, and the historical, smoking and tobacco- related health factors from the NH facility where the Encounter took place. Current Smoking Status This section includes the most current smoking, or tobacco-related health factor, from the NH facility where the Encounter took place. Date/Time Current Smoking Status Comment Facil ity January 21, 2024 10:00 AM VA-TOBACCO FORMER USER [facility] Tobacco Use History This section includes a history of the smoking, or tobacco-related health factors, that were collected on or before the date of the Encounter. The data comes from the NH facility where the Encounter took place. Date/Time Smoking Status/Tobacco Use Comment F acility January 21, 2024 10:00 AM VA-TOBACCO QUIT 5 TO < 15 YRS [facility] January 27, 2023 12:31 PM VA-TOBACCO FORMER USER [facility] January 27, 2023 12:31 PM VA-TOBACCO QUIT 15 YRS OR MORE [facility] Advance Directives: All historical and current Section Date Range: From patient's date of to the date document was created. This section includes ALL of a patient's completed or amended NH Advance and Rescinded Directives. The entries below indicate that a directive exists for the patient, but an actual copy is not included with this document. The data comes from all NH facilities. Date Advance Directives Provider Source May 14, 2022 ADVANCE DIRECTIVE BERTHA NAZARIO [facility] Feb 05, 2017 ADVANCE DIRECTIVE DISCUSSION PEG SORENSEN [facility] Radiology Reports: +/- 30 days [...] the Encounter. The data comes from all NH treatment facilities. Date/Time Radiology Report Provider Source January 16, 2025 12:23 PM US CAROTID BILATER AL: GERDA TEJADA [id number] -1950 F Exm Date: JANUARY 16, 2025@12:23 Req Phys: JUAN CARLOS BRENNAN Loc: OUTSIDE PB-ULTRASOUND (Req'g L Img Loc: OUTSIDE PB-ULTRASOUND Service: Unknown Screen: Patient is unable to answer or is unsure Screen Comment: OUTSIDE STUDY (Case [id number] COMPLETE) US CAROTID BILATERAL (US Detailed) CPT:62731 Reason for Study: Exam imported from outside Clinical History: Original Data for Imported Study Patient Name: Gerda Tejada Date: 1950 Sex: F Study Date: 01/16/25 Study Time: 12:23:00 Study Description: Carotid Duplex Referring Physician: Eufemia GANDHI Series 1: 49 US files, description: CV carotid duplex BI* [id number] Acquisition site: [place] [id number] Report Status: Electronically Filed Date Reported: FEB 01, 2025 Report: No report text Impression: No impression text VERIFIED BY: / *ELECTRONICALLY FILED* [place] [facility] December 28, 2024 10:29 AM CHEST X-RAY, 2 VIE WS: GERDA TEJADA NADIA [id number] -1950 F Exm Date: DECEMBER 28, 2024@10:29 Req Phys: JUAN CARLOS BRENNAN Loc: PB-MICHAEL PACT [employer] PASTOR WH (Req Img Loc: PB-XRAY [place] Service: [place] [address] (Case [id number] COMPLETE) CHEST X-RAY, 2 VIEWS (RAD Detailed) CPT:11028 Reason for Study: screening Clinical History: surgery clearance Report Status: Verified Date Reported: DECEMBER 28, 2024 Date Verified: DECEMBER 28, 2024 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 Lungs hyperinflated with emphysematous changes. Apical pleural thickening. There are no infiltrates or effusions. Heart normal size. Plaque thoracic aorta. Degenerative changes thoracic spine. Findings similar previous study dated 08/28/2024. Impression: 1. COPD with apical pleural thickening 2. Findings similar previous study Primary Interpreting Staff: THAD ZHANG, RADIOLOGIST (Wood Casket Maker, no e-sig) /THAD Rogers [facility] Dec 13, 2024 10:10 AM RIBS,RIGHT+CHEST 3 +VIEWS: GERDA TEJADA [id number] -1950 F Exm Date: DEC 13, 2024@10:10 Req Phys: MORRIS RICH Loc: PB-MICHA[facility] CHIRO (Req'g Loc) Img Loc: PB-AY [place] Service: [place] [address] (Case [id number] COMPLETE) RIBS,RIGHT+CHEST 3+VIEWS (RAD Detailed) CPT:66979 Proc Modifiers : RIGHT Reason for Study: fell from [facility] Clinical History: Report Status: Verified Date Reported: DEC 13, 2024 Date Verified: DEC 13, 2024 Wood Casket Maker E-Sig: Report: Chest and right RIBS. 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 There are degenerative changes with osteophytes and involvement of the facets. Narrowing the L1-2, L2-3 and L3-4 disc spaces. No fracture or dislocation. No evidence of bony destruction. Grade 1 spondylolisthesis L4 on L5. Scoliosis. Plaque in the abdominal aorta. Impression: 1. Moderate degenerative arthritis 2. Narrowing L1-2, L2-3 and L3-4 disc spaces 3. Ghvy-rx-unpnbcfd scoliosis 4. Grade 1 spondylolisthesis L4 on L5 Primary Interpreting Staff: THAD ZHANG RADIOLOGIST (Wood Casket Maker, no e-sig) /THAD Rogers [facility] Dec 13, 2024 09:55 AM SPINE THORACIC 2 V IEWS: GERDA TEJADA [id number] -1950 F Exm Date: DEC 13, 2024@09:55 Req Phys: MORRIS RICH Loc: PB-[facility] (Req'g Loc) Img Loc: PB-XRAY [place] Service: [place] [address] (Case [id number] COMPLETE) SPINE THORACIC 2 VIEWS (RAD Detailed) CPT:40523 Reason for Study: fell off stepladder Clinical History: Report Status: Verified Date Reported: DEC 13, 2024 Date Verified: DEC 13, 2024 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 Date/Time Encounter Note(s) Provider Source January 05, 2025 02:22 PM GENERAL MEDICINE N OTE: LOCAL TITLE: General Note PB STANDARD TITLE: GENERAL MEDICINE NOTE DATE OF NOTE: JANUARY 05, 2025@14:22 ENTRY DATE: JANUARY 05, 2025@14:22:36 AUTHOR: DARÍO PEDRAZA EXP COSIGNER: URGENCY: STATUS: COMPLETED Confirmed 01/08 Audiology appt /sarabjit/ DARÍO PEDRAZA Telehealth Clinical Engineering Test Specialist Signed: 01/05/2025 14:22 DARÍO PEDRAZA [facility]
--- OUTSIDE RECORDS SUMMARY | 2025-01-08 07:01 | XMS_ITS | Encounter Summary ---
Author Name [facility] Organization [facility] Address [address] [place] [address] Care Team Providers Care Caponizer Name Role Phone JUAN CARLOS BRENNAN Primary [...] MEDICARE ADVANTAGE MCR (WNR) Aug 30, 2022 [id number] [phone] MARICHUY TEJADA PATIENT [employer] MCR (WNR) MEDICARE ADVANTAGE MCR (WNR) Aug 30, 2022 [id number] MARICHUY TEJADA PATIENT MEDICARE (WNR) MEDICARE (M) PART A Jun 30, 2017 PART A [id number] [phone] MARICHUY TEJADA PATIENT MEDICARE (WNR) MEDICARE (M) PART B Jun 30, 2017 PART B [id number] [phone] MARICHUY TEJADA PATIENT MEDICARE (WNR) MEDICARE (M) PART A Jun 30, 2017 PART A [id number] [phone] MARICHUY TEJADA PATIENT MEDICARE (WNR) MEDICARE (M) PART B Jun 30, 2017 PART B [id number] MARICHUY TEJADA PATIENT [facility] (WNR) MEDICARE ADVANTAGE [facility] (WNR) Sep 30, 2023 [id number] MARICHUY TEJADA PATIENT Selected Encounter This section includes the information on record at ID for the Encounter. Date/Time Encounter Type Encounter Description Reason Provider Source January 08, 2025 12:01 PM HEARING SERVICE AUDIOLOGY ICD-10-CM Z46.1 Encounter for fitting and adjustment of hearing aid JOSSELYN FERNANDO RA Jensen [facility] Encounter Template Text not used by ID Assessments - Encounter Diagnoses This section includes the primary and secondary diagnoses documented for the Encounter. Date/Time Primary/Secondary Diagnosis Diagnosis Name Provider Source January 08, 2025 12:02 PM PRIMARY Encounter for fitting and adjustment of hearing aid JOSSELYN FERNANDO RA Jensen [place] [facility] January 08, 2025 12:02 PM SECONDARY Sensorineural hearing loss, bilateral JOSSELYN FERNANDO RA Camila [place] [facility] January 08, 2025 12:02 PM SECONDARY Tinnitus, bilateral JOSSELYN FERNANDO RA [place] [facility] Plan of Treatment: Future Appointments (+ [...] Appointment Type Appointme nt Facility Name January 11, 2025 07:30 AM AMBULATORY - MEDICINE [place] [facility] January 16, 2025 12:15 PM AMBULATORY - [place]IC[place] [facility] January 24, 2025 10:15 AM AMBULATORY - NONE [place] [facility] Jan 31, 2025 09:40 AM AMBULATORY - MEDICINE [facility] Jan 31, 2025 10:30 AM AMBULATORY - MEDICINE [facility] Feb 14, 2025 09:00 AM AMBULATORY - MEDICINE [facility] Feb 14, 2025 09:40 AM AM[facility]ORY [place]IC[place] [facility] Mar 06, 2025 09:30 AM AMBULATORY - MEDICINE [facility] Mar 06, 2025 10:00 AM [facility] [place] [facility] Mar 07, 2025 10:40 AM AMBULATORY - MEDICINE [facility] Mar 21, 2025 09:40 AM AMBULATORY - MEDICINE [facility] Mar 29, 2025 10:20 AM AMBULATORY - MEDICINE [place] [facility] Apr 04, 2025 09:40 AM AMBULATORY - MEDICINE [facility] Active, Pending, and Scheduled Orders [...] Dec 27, 2024 03:42 PM Consult Order [facility] [id number] Cons Human Capital Analyst's Choice [facility] Jan 31, 2025 10:55 AM Consult Order [facility] [id number] Cons Human Capital Analyst's [facility] Lab Results: +/- 30 days [...] Type Comment Dec 27, 2024 09:45 AM [facility] TSH (MA-PB) SERUM Specimen Type: SERUM No comment entered. Ordering Provider: JUAN CARLOS BRENNAN Report Released Date/Time: Dec 27, 2024 09:44 AM Reporting Lab: [place] [facility] [address] [place] [address] Performing Lab: [place] [facility] [address] [place] [address] TSH 1.171 u[IU]/mL 0.47-5 Dec 27, 2024 09:45 AM [place] [facility] HGA1C BLOOD Specimen Type: BLOOD No comment entered. Ordering Provider: JUAN CARLOS BRENNAN Report Released Date/Time: Dec 27, 2024 09:44 AM Reporting Lab: [place] [facility] [address] [place] [address] Performing Lab: [place] [facility] [address] [place] [address] HGA1C 5.5 4.0-6.0 Dec 27, 2024 09:45 AM [facility] VITAMIN D, 25-HYDROXY SERUM Specimen Type: SE RUM No comment entered. Ordering Provider: JUAN CARLOS BRENNAN Report Released Date/Time: Dec 27, 2024 09:44 AM Reporting Lab: [place] [facility] [address] [place] [address] Performing Lab: [place] [facility] [address] [place] [address] VITAMIN D, 25-HYDROXY 33.7 ng/mL 30-96 Dec 27, 2024 09:45 AM [facility] CHOLESTEROL PANEL (PB) PLASMA Specimen Type: P LASMA Comment: LDL calculation invalid when Triglyceride exceeds 250 mg/dl Ordering Provider: JUAN CARLOS BRENNAN Report Released Date/Time: Dec 27, 2024 09:44 AM Reporting Lab: [place] [facility] [address] [place] [address] Performing Lab: [place] [facility] [address] [place] [address] CHOLESTEROL 198 mg/dL 0-200 TRIGLYCERIDE 429 mg/dL H 0-150 CALCULATED LDL comment mg/dL HDL(New) 41.3 mg/dL H >40 HDL % OF TOTAL CHOLESTEROL (PB) 20.9 >25 DIRECT LDL(MA) 119.7 mg/dL H 0-99.9 Dec 27, 2024 09:45 AM [facility] URINALYSIS (STL-PB) URINE Specimen Type: URIN E No comment entered. Ordering Provider: JUAN CARLOS BRENNAN Report Released Date/Time: Dec 27, 2024 09:44 AM Reporting Lab: [place] [facility] [address] [place] [address] Performing Lab: [place] [facility] [address] [place] [address] URINE COLOR Light Yellow Yellow U.BILIRUBIN NEGATIVE mg/dL Negative U.PH 6.5 5.0-8.0 APPEARANCE CLEAR Clear U.NITRITE NEGATIVE mg/dL Negative URN.GLUCOSE NORMAL mg/dL Negative URN.PROTEIN NEGATIVE mg/dL URN.UROBILINOGEN NORMAL mg/dL Normal URN.BLOOD NEGATIVE mg/dL Negative-Trace URN.KETONES NEGATIVE mg/dL Negative-Trac e URN.LEUK.EST. NEGATIVE Negative-Trace URN.SPECIFIC GRAVITY 1.017 1.005-1.029 Dec 27, 2024 09:45 AM [facility] COMPREHENSIVE METABOLIC PANEL PLASMA Specimen Type: PLASMA Comment: LDL calculation invalid when Triglyceride exceeds 250 mg/dl Ordering Provider: JUAN CARLOS BRENNAN Report Released Date/Time: Dec 27, 2024 09:44 AM Reporting Lab: [place] [facility] [address] [place] [address] Performing Lab: [place] [facility] [address] [place] [address] CREATININE 0.65 mg/dL 0.6-1.1 UREA NITROGEN 9 [...] 2020) 93 Dec 27, 2024 09:45 AM [facility] CBC BLOOD Specimen Type: BLOOD No comment entered. Ordering Provider: JUAN CARLOS BRENNAN Report Released Date/Time: Dec 27, 2024 09:44 AM Reporting Lab: [place] [facility] [address] [place] [address] Performing Lab: [place] [facility] [address] [place] [address] WBC 9.1 10*3/uL 3.6-11.2 RBC 5.17 10*6/uL [...] 0. 00-0.05 Dec 13, 2024 10:59 AM [facility] DRUG SCREEN URINE-inhouse (PB) URINE Specimen Type: URINE No comment entered. Ordering Provider: JUAN CARLOS BRENNAN Report Released Date/Time: Dec 13, 2024 10:48 AM Reporting Lab: [facility] [address] [facility] [address] Performing Lab: [facility] [address] [facility] [address] METHADONE Negative Negative OPIATES (PB) Negative Negative COCAINE... Negative Negative THC(Marijuana... Negative Negative BENZODIAZEPINE (PB) Negative Negative AMPHETAMINE... Negative Negative CREATININE URINE/OTHERS 94.26 mg/dL OXYCODONE (QOMIL-FWI-GI) Negative Negati ve BUPRENORPHINE (STL-PB-MA) Negative ng/mL [...] this document. The data comes from all [facility]. Date Advance Directives Provider Source May [...] PM US CAROTID BILATER AL: MARICHUY TEJADA [id number] -1950 F Exm Date: JANUARY 16, 2025@12:23 Req Phys: JUAN CARLOS BRENNAN Loc: OUTSIDE PB-ULTRASOUND (Req'g L Img Loc: OUTSIDE PB-ULTRASOUND Service: Unknown Screen: Patient is unable to answer or is unsure Screen Comment: OUTSIDE STUDY (Case [id number] COMPLETE) US CAROTID BILATERAL (US Detailed) CPT:44230 Reason for Study: Exam imported from outside Clinical History: Original Data for Imported Study Patient Name: Marichuy Tejada Date: 1950 Sex: F Study Date: 01/16/25 Study Time: 12:23:00 Study Description: Carotid Duplex Referring Physician: Eufemia GANDHI Series 1: 49 US files, description: CV carotid duplex BI* [address] Acquisition site: [place] [id number] Report Status: Electronically Filed Date Reported: FEB 01, 2025 Report: No report text Impression: No impression text VERIFIED BY: / *ELECTRONICALLY FILED* [facility] December 28, 2024 10:29 AM CHEST X-RAY, 2 VIE WS: MARICHUY TEJADA [id number] -1950 F Exm Date: DECEMBER 28, 2024@10:29 Req Phys: JUAN CARLOS BRENNAN Loc: PB-MICHAEL PACT [employer] SENIOR AGRICULTURAL ASSISTANT WH (Req Img Loc: PB-XRAY [place] Service: [place] [address] (Case [id number] COMPLETE) CHEST X-RAY, 2 VIEWS (RAD Detailed) CPT:79270 Reason for Study: screening Clinical History: surgery clearance Report Status: Verified Date Reported: DECEMBER 28, 2024 Date Verified: DECEMBER 28, 2024 Sales Support Advisor E-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 Lungs hyperinflated with emphysematous changes. Apical pleural thickening. There are no infiltrates or effusions. Heart normal size. Plaque thoracic aorta. Degenerative changes thoracic spine. Findings similar previous study dated 08/28/2024. Impression: 1. COPD with apical pleural thickening 2. Findings similar previous study Primary Interpreting Staff: THAD ZHANG, RADIOLOGIST (Sales Support Advisor, no e-sig) /[facility] THAD ZHANG [facility] Dec 13, 2024 10:10 AM RIBS,RIGHT+CHEST 3 +VIEWS: MARICHUY TEJADA [id number] -1950 F Exm Date: DEC 13, 2024@10:10 Req Phys: MORRIS RICH Loc: PB-MICHAEL CHIRO (Req'g Loc) Img Loc: PB-XRAY [place] Service: [place] [address] (Case [id number] COMPLETE) RIBS,RIGHT+CHEST 3+VIEWS (RAD Detailed) CPT:94842 Proc Modifiers : RIGHT Reason for Study: fell from steptndder Clinical History: Report Status: Verified Date Reported: DEC 13, 2024 Date Verified: DEC 13, 2024 Sales Support Advisor E-Sig: Report: Chest and right RIBS. Lungs [...] fracture Primary Interpreting Staff: THAD ZHANG RADIOLOGIST (Sales Support Advisor, no e-sig) /THAD Rogers [facility] Dec 13, 2024 09:55 AM SPINE LUMBOSACRAL 2 OR 3 VIEWS: MARICHUY TEJADA [id number] -1950 F Exm Date: DEC 13, 2024@09:55 Req Phys: MORRIS RICH Loc: PB-MICHAEL CHIRO (Req'g Loc) Img Loc: PB-XRAY [place] Service: [place] [address] (Case [id number] COMPLETE) SPINE LUMBOSACRAL 2 OR 3 VIEWS (RAD Detailed) CPT:39387 Reason for Study: fell off stepladder Clinical History: Report Status: Verified Date Reported: DEC 13, 2024 Date Verified: DEC 13, 2024 Sales Support Advisor E-Sig: Report: Lumbar spine 3 views. There are degenerative changes with osteophytes and involvement of the facets. Narrowing the L1-2, L2-3 and L3-4 disc spaces. No fracture or dislocation. No evidence of bony destruction. Grade 1 spondylolisthesis L4 on L5. Scoliosis. Plaque in the abdominal aorta. Impression: 1. Moderate degenerative arthritis 2. Narrowing L1-2, L2-3 and L3-4 disc spaces 3. Pxux-wy-ayuayasz scoliosis 4. Grade 1 spondylolisthesis L4 on L5 Primary Interpreting Staff: THAD ZHANG RADIOLOGIST (Sales Support Advisor, no e-sig) /THAD Rogers [place] [facility] Dec 13, 2024 09:55 AM SPINE THORACIC 2 V IEWS: MARICHUY TEJADA [id number] -1950 F Exm Date: DEC 13, 2024@09:55 Req Phys: MORRIS RICH Loc: PB-MICHAEL CHIRO (Req'g Loc) Img Loc: PB-XRAY [place] Service: [place] [address] (Case [id number] COMPLETE) SPINE THORACIC 2 VIEWS (RAD Detailed) CPT:77586 Reason for Study: fell off stepladder Clinical History: Report Status: Verified Date Reported: DEC 13, 2024 Date Verified: DEC 13, 2024 Sales Support Advisor E-Sig: Report: Thoracic spine 3 views including [...] spine Primary Interpreting Staff: THAD ZHANG, RADIOLOGIST (Sales Support Advisor, no e-sig) /THAD Rogers [facility] Encounter Notes: All associated encounter notes This section contains the clinical notes associated to the Encounter. Date/Time Encounter Note(s) Provider Source January 08, 2025 07:03 AM AUDIOLOGY NOTE: LOCAL TITLE: HEARING CLINIC STANDARD TITLE: AUDIOLOGY NOTE DATE OF NOTE: JANUARY 08, 2025@07:03 ENTRY DATE: JANUARY 08, 2025@07:03:17 AUTHOR: YADIRA FERNANDO COSIGNER: URGENCY: STATUS: COMPLETED Diagnosis: Sensorineural hearing loss, Bilateral and Tinnitus, Bilateral Treatment: Hearing Aid Follow Up Time spent with : 30 minutes seen for a hearing aid check via Audio Telehealth and verbally consented to the Telehealth modality. Multi-factor personally identifiable information of the was obtained verbally (full name and date of ). [place] accompanied by: none Patient site: [place] ____ HISTORY: was previously seen for the fitting of new hearing aids. Patient returns today for follow up. reports acclimating well to the hearing aids and feels they are beneficial. 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 [place] reports receiving the first shipment of supplies in the mail. HEARING DEVICES: 11/2024 PHONAK AUDEO L90-312 CAMELIA L [id number] 12/08/27 05/07/2511/2024 PHONAK AUDEO L90-312 CAMELIA R [id number] 12/08/27 05/07/25 - S HUMANITIES PROFESSOR 5.0 - SIZE 2 - OPEN DOME - MEDIUM - CERUSTOP - RETENTION TAILS Phone Connectivity: streaming OBJECTIVE/ASSESSMENT: Otoscopy was performed by collaboration of telehealth clinical optoelectronic technician and provider via telehealth technology/video otoscope which revealed: Right ear: unremarkable Left ear: unremarkable Devices were cleaned and checked including replacement of filters. Installed new retention tail on right device. A listening check performed by TCT revealed proper function. Patient was re-instructed on hearing aid maintenance and re- educated on ordering more supplies when needed. International Outcome Inventory for Hearing Aids administered and saved in [employer]. The was counseled/educated on services provided today and is in agreement with the plan. PLAN: Return to clinic as needed. /sarabjit/ Mihir Kerr [facility] Signed: 01/08/2025 12:04 YADIRA FERNANDO [facility]
--- OUTSIDE RECORDS SUMMARY | 2025-01-31 04:40 | XMS_ITS | Encounter Summary ---
Author Name [facility] [facility] [place] Address [address] [place] [address] Care Team Providers Care Campaign Management Specialist Name Role Phone JUAN CARLOS BRENNAN [...] MEDICARE ADVANTAGE MCR (WNR) Aug 30, 2022 [id number] GERDA TEJADA PATIENT [employer] MCR (WNR) MEDICARE ADVANTAGE MCR (WNR) Aug 30, 2022 [id number] [phone] GERDA TEJADA PATIENT MEDICARE (WNR) MEDICARE (M) PART A Jun 30, 2017 PART A [id number] GERDA TEJADA PATIENT MEDICARE (WNR) MEDICARE (M) PART B Jun 30, 2017 PART B [id number] GERDA TEJADA PATIENT MEDICARE (WNR) MEDICARE (M) PART A Jun 30, 2017 PART A [id number] GERDA TEJADA PATIENT MEDICARE (WNR) MEDICARE (M) PART B Jun 30, 2017 PART B [id number] GERDA TEJADA PATIENT [employer] MCR (WNR) MEDICARE ADVANTAGE [facility] (WNR) Sep 30, 2023 [id number] [phone] GERDA TEJADA PATIENT Selected Encounter This section includes the information on record at [place] for the Encounter. 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 Date/Time Primary/Secondary Diagnosis Diagnosis Name Provider Source Jan 31, 2025 10:06 AM PRIMARY Segmental and somatic dysfunction of cervical region MORRIS RICH [facility] Jan 31, 2025 10:06 AM SECONDARY Cervicalgia MORRIS RICH [facility] Jan 31, 2025 10:06 AM SECONDARY Oth intvrt disc degen, lumbosacr rgn w discog bck pain only MORRIS RICH [facility] Jan 31, 2025 10:06 AM SECONDARY Pain in thoracic spine MORRIS RICH [facility] Jan 31, 2025 10:06 AM SECONDARY Segmental and somatic dysfunction of lumbar region MORRIS RICH [facility] Jan 31, 2025 10:06 AM SECONDARY Segmental and somatic dysfunction of pelvic region MORRIS RICH [facility] Jan 31, 2025 10:06 AM SECONDARY Segmental and somatic dysfunction [...] 20 appointments. The data comes from all [place] treatment [facility]. Appointment Date/Time Appointment Type Appointme nt Facility Name Feb 14, 2025 09:00 AM AMBULATORY - MEDICINE [facility] Feb 14, 2025 09:40 AM AMBULATORY - MEDICINE [facility] Mar 06, 2025 09:30 AM AMBULATORY - MEDICINE [facility] Mar 06, 2025 10:00 AM AMBULATORY - MEDICINE [facility] Mar 07, 2025 10:40 AM AMBULATORY - MEDICINE [facility] Mar 21, 2025 09:40 AM AMBULATORY - MEDICINE [facility] Mar 29, 2025 10:20 AM AMBULATORY - MEDICINE [facility] Apr 04, 2025 09:40 AM AMBULATORY - MEDICINE [facility] Active, Pending, and Scheduled Orders This section includes a listing of several types of active, pending, and scheduled orders, including clinic medications orders, diagnostic test orders, procedure orders and consult orders; where the start date of the order is 45 days before the date of the Encounter or 45 days after the date of theEncounter. The data comes from all [place] treatment [facility]. Test Date/Time Test Type Test Details Facility Name Dec 27, 2024 03:42 PM Consult Order [facility]-CI MASSAGE THERAPY [id number] [facility] Jan 31, 2025 10:55 AM Consult Order [facility]PAIN [id number] [facility] Mar 06, 2025 09:54 AM Consult Order [facility]-OCCUPATIONAL [place] [id number] [facility] Vital Signs: All taken on the encounter date This section contains inpatient and outpatient Vital Signs collected on the date of the Encounter. Date/Time Temperature Pulse Blood Pressure Respiratory Rate SP02 Pain Height Weight Body Mass Index Source Jan 31, 2025 09:40 AM 98 74 155/101 [facility] Social History: Smoking Status (Most current) and Tobacco Use (All prior to encounter date) This section includes the most current, and the historical, smoking and tobacco- related health factors from the [place] facility where the Encounter took place. Current Smoking Status This section includes the most current smoking, or tobacco-related health factor, from the [place] facility where the Encounter took place. Date/Time Current Smoking Status Comment Facil ity January 21, 2024 10:00 AM VA-TOBACCO FORMER USER [facility] Tobacco Use History This section includes a history of the smoking, or tobacco-related health factors, that were collected on or before the date of the Encounter. The data comes from the [place] facility where the Encounter took place. Date/Time Smoking Status/Tobacco Use Comment F acility January 21, 2024 10:00 AM VA-TOBACCO QUIT 5 TO < 15 YRS [facility] January 27, 2023 12:31 PM VA-TOBACCO FORMER USER [facility] January 27, 2023 12:31 PM VA-TOBACCO QUIT 15 YRS OR MORE [facility] Advance Directives: All historical and current Section Date Range: From patient's date of to the date document was created. This section includes ALL of a patient's completed or amended [place] Advance and Rescinded Directives. The entries below indicate that a directive exists for the patient, but an actual copy is not included with this document. The data comes from all [place] facilities. Date Advance Directives Provider Source May [...] the Encounter. The data comes from all [place] treatment facilities. Date/Time Radiology Report Provider Source January 16, 2025 12:23 PM US CAROTID BILATER AL: GERDA TEJADA [id number] -1950 F Exm Date: JANUARY 16, 2025@12:23 Req Phys: JUAN CARLOS BRENNAN Loc: OUTSIDE PB-ULTRASOUND (Req'g L Img Loc: OUTSIDE PB-ULTRASOUND Service: Unknown Screen: Patient is unable to answer or is unsure Screen Comment: OUTSIDE STUDY (Case [id number] COMPLETE) US CAROTID BILATERAL (US Detailed) CPT:29543 Reason for Study: Exam imported from outside Clinical History: Original Data for Imported Study Patient Name: Gerda Tejada Date: 1950 Sex: F Study Date: 01/16/25 Study Time: 12:23:00 Study Description: Carotid Duplex Referring Physician: Eufemia GANDHI Series 1: 49 US files, description: CV carotid duplex BI* [id number] Acquisition site: [place] [address] Report Status: Electronically Filed Date Reported: FEB 01, 2025 Report: No report text Impression: No impression text VERIFIED BY: / *ELECTRONICALLY FILED* EVERT SANTIAGO [facility] Encounter Notes: All associated encounter notes This section contains the clinical notes associated to the Encounter. Date/Time Encounter Note(s) Provider Source Jan 31, 2025 09:55 AM CHIROPRACTIC NOTE: LOCAL TITLE: CHIROPRACTIC FOLLOW UP NOTE PB STANDARD TITLE: CHIROPRACTIC NOTE DATE OF NOTE: JAN 31, 2025@09:55 ENTRY DATE: JAN 31, 2025@09:55:12 AUTHOR: MORRIS RICH COSIGNER: URGENCY: STATUS: COMPLETED CHIROPRACTIC FOLLOW-UP VISIT Patient's language preference for health information: Scottish Other Communication Methods Needed: SUBJECTIVE: The [place] Center is a 74 year old FEMALE being seen in the Chiropractic clinic for follow-up visit. The is wearing a sling on her left arm, recovering from left shoulder surgery. She describes her neck and back as not great, but constant pain in her lower back. The is pleased with her massage therapy treatment. Today, the rates her pain level as [...] restricted in all planes of motion. The [place] experience pain with the restricted AROM. LUMBAR/THORACIC SPINE: MOVEMENT/POSTURE: The [place] ambulates slowly with guarding. SEGMENTAL DYSFUNCTION: Joint [...] and trigger points. PLAN: This is the final follow up [...] exercise program and to commit to a tank terminal gauger exercise plan. /sarabjit/ SEN [place] PlainBARBRA [place] Signed: 01/31/2025 10:05 MORRIS RICH
--- OUTSIDE RECORDS SUMMARY | 2025-01-31 05:30 | XMS_ITS | Encounter Summary ---
Author Name [facility] [facility] [place] Address [address] [place] [address] Care Team Providers Care Medical Device Sales Consultant Name Role Phone JUAN CARLOS BRENNAN [...] MEDICARE ADVANTAGE MCR (WNR) Aug 30, 2022 [id number] GERAD TEJADA PATIENT [employer] MCR (WNR) MEDICARE ADVANTAGE MCR (WNR) Aug 30, 2022 [id number] [phone] GERDA TEJADA PATIENT MEDICARE (WNR) MEDICARE (M) PART A Jun 30, 2017 PART A [id number] GERDA TEJADA PATIENT MEDICARE (WNR) MEDICARE (M) PART B Jun 30, 2017 PART B [id number] [phone] GERDA TEJADA PATIENT MEDICARE (WNR) MEDICARE (M) PART A Jun 30, 2017 PART A [id number] GERDA TEJADA PATIENT MEDICARE (WNR) MEDICARE (M) PART B Jun 30, 2017 PART B [id number] GERDA TEJADA PATIENT [facility] (WNR) MEDICARE ADVANTAGE [facility] (WNR) Sep 30, 2023 [id number] [phone] GERDA TEJADA PATIENT Selected Encounter This section includes the information on record at [place] for the Encounter. Date/Time Encounter Type Encounter Description Reason Provider Source Jan 31, 2025 10:30 AM OFFICE O/P EST LOW 20 MIN PRIMARY CARE/MEDICINE ICD-10-CM M51.360 Other intvrt disc degen, lum rgn with discog back pain only PATRICK BRENNAN Samara Encounter Template Text not used by [place] Assessments - Encounter Diagnoses This section includes the primary and secondary diagnoses documented for the Encounter. Date/Time Primary/Secondary Diagnosis Diagnosis Name Provider Source Jan 31, 2025 04:12 PM PRIMARY Other intvrt disc degen, lum rgn with discog back pain only PATRICK BRENNAN [facility] Plan of Treatment: Future Appointments (+ 6 months) and Future Tests (+/- 45 days) The Plan of Treatment section includes future care activities for the patient from all [place] treatmentfacilities. This section includes future appointments and future orders which are active, pending or scheduled. Future Appointments This section includes appointments that were scheduled to occur 6 months from the date of the Encounter, up to a maximum of 20 appointments. The data comes from all [place] treatment facilities. Appointment Date/Time Appointment Type Appointme nt Facility Name Feb 14, 2025 09:00 AM AMBULATORY - MEDICINE [facility] Feb 14, 2025 09:40 AM AMBULATORY - MEDICINE [facility] Mar 06, 2025 09:30 AM AMBULATORY - MEDICINE [facility] Mar 06, 2025 10:00 AM [facility] Mar 07, 2025 10:40 AM [facility] Mar 21, 2025 09:40 AM AMBULATORY - MEDICINE [facility] Mar 29, 2025 10:20 AM AMBULATORY - MEDICINE [facility] Apr 04, 2025 09:40 AM AMBULATORY - MEDICINE [facility] Active, Pending, and Scheduled Orders This section includes a listing of several types of active, pending, and scheduled orders, including clinic medications orders, diagnostic test orders, procedure orders and consult orders; where the start date of the order is 45 days before the date of the Encounter or 45 days after the date of theEncounter. The data comes from all [place] treatment facilities. Test Date/Time Test Type Test Details Facility Name Dec 27, 2024 03:42 PM Consult Order COMMUNITY CARE-CI MASSAGE THERAPY [id number] Cons Information Clerk [employer] [facility] Jan 31, 2025 10:55 AM Consult Order COMMUNITY CARE-PAIN [id number] Cons Information Clerk [employer] [facility] Mar 06, 2025 09:54 AM Consult Order COMMUNITY CARE-OCCUPATIONAL [place] [id number] Cons Information Clerk [employer] [facility] Vital Signs: All taken on the encounter date This section contains inpatient and outpatient Vital Signs collected on the date of the Encounter. Date/Time Temperature Pulse Blood Pressure Respiratory Rate SP02 Pain Height Weight Body Mass Index Source Jan 31, 2025 09:40 AM 98 74 155/101 [facility] Social History: Smoking Status (Most current) and Tobacco Use (All prior to encounter date) This section includes the most current, and the historical, smoking and tobacco- related health factors from the [place] facility where the Encounter took place. Current Smoking Status This section includes the most current smoking, or tobacco-related health factor, from the [place] facility where the Encounter took place. Date/Time Current Smoking Status Comment Facil ity January 21, 2024 10:00 AM VA-TOBACCO FORMER USER [facility] Tobacco Use History This section includes a history of the smoking, or tobacco-related health factors, that were collected on or before the date of the Encounter. The data comes from the [place] facility where the Encounter took place. Date/Time Smoking Status/Tobacco Use Comment F acility January 21, 2024 10:00 AM VA-TOBACCO QUIT 5 TO < 15 YRS [facility] January 27, 2023 12:31 PM VA-TOBACCO FORMER USER [facility] January 27, 2023 12:31 PM VA-TOBACCO QUIT 15 YRS OR MORE [facility] Advance Directives: All historical and current Section Date Range: From patient's date of to the date document was created. This section includes ALL of a patient's completed or amended [place] Advance and Rescinded Directives. The entries below indicate that a directive exists for the patient, but an actual copy is not included with this document. The data comes from all [place] facilities. Date Advance Directives Provider Source May 14, 2022 ADVANCE DIRECTIVE BERTHA NAZARIO [facility] Feb 05, 2017 ADVANCE DIRECTIVE DISCUSSION PEG SORENSEN [facility] Radiology Reports: +/- 30 [...] the Encounter. The data comes from all [place] treatment facilities. Date/Time Radiology Report Provider Source January 16, 2025 12:23 PM US CAROTID BILATER AL: GERDA TEJADA [id number] -1950 F Exm Date: JANUARY 16, 2025@12:23 Req Phys: JUAN CARLOS BRENNAN Loc: OUTSIDE PB-ULTRASOUND (Req'g L Img Loc: OUTSIDE PB-ULTRASOUND Service: Unknown Screen: Patient is unable to answer or is unsure Screen Comment: OUTSIDE STUDY (Case [id number] COMPLETE) US CAROTID BILATERAL (US Detailed) CPT:63252 Reason for Study: Exam imported from outside Clinical History: Original Data for Imported Study Patient Name: Gerda Tejada Date: 1950 Sex: F Study Date: 01/16/25 Study Time: 12:23:00 Study Description: Carotid Duplex Referring Physician: Eufemia GANDHI Series 1: 49 US files, description: CV carotid duplex BI* [id number] Acquisition site: [place] [address] Report Status: Electronically Filed Date Reported: FEB 01, 2025 Report: No report text Impression: No impression text VERIFIED BY: / *ELECTRONICALLY FILED* EVERT RENDON [facility] Encounter Notes: All associated encounter notes This section contains the clinical notes associated to the Encounter. Date/Time Encounter Note(s) Provider Source Jan 31, 2025 10:49 AM PRIMARY CARE NITIN BOSS NOTE: LOCAL TITLE: PRIMARY CARE NURSING PROGRESS NOTE (TEXT) NURSING P STANDARD TITLE: PRIMARY CARE NURSING NOTE DATE OF NOTE: JAN 31, 2025@10:49 ENTRY DATE: JAN 31, 2025@10:49:21 AUTHOR: JEANIE HARP EXP COSIGNER: URGENCY: STATUS: COMPLETED Established Patient GERDA TEJADA IS A 74 YEAR OLD FEMALE BEING SEEN IN CLINIC JAN 31, 2025. == == REASON FOR VISIT: here today for annual appt with provider but states she was seen in November for her annual. Are you receiving care any where other than the [place]? No HEALTH AND SURGICAL HISTORY: Does patient report using home oxygen? No CURRENT ACTIVE MEDICATIONS FOR REVIEW: If the list for review does not include a component, then it was not applicable to this patient. Allergies/ADRs (Tool #5) FACILITY ALLERGY/ADR -------- [facility] ALBUT[facility]OL [facility] CODEINE [facility] ALBUTEROL [facility] CODEINE [facility] LISINOPRIL [facility] TRAMADOL Med. Reconciliation (Tool #1) INCLUDED IN THIS LIST: Alphabetical list of active outpatient prescriptions dispensed from this [place] (local) and dispensed from another [place] or [facility] facility (remote) as well as inpatient orders (local pending and active), local clinic medications, locally documented non-VA medications, and local prescriptions that have or been discontinued in the past 90 days. Non-VA Meds Last Documented On: January 06, 2024 NOTE The display of VA prescriptions dispensed from another [place] or [facility] facility (remote) is limited to active outpatient prescription entries matched to National Drug File at the originating site and may not include some items such as investigational drugs, compounds, etc. NOT INCLUDED IN THIS LIST: Medications self-entered by the patient into personal health records (i.e. [employer]) are NOT included in this list. Non-VA medications documented outside this [place], remote inpatient orders (regardless of status) and remote clinic medications are NOT included in this list. The patient and provider must always discuss medications the patient is taking, regardless of where the medication was dispensed or obtained. OUTPT AMLODIPINE BESYLATE 2.5MG TAB (Status = Active) TAKE ONE TABLET BY MOUTH ONCE A DAY FOR HIGH BLOOD PRESSURE Rx# [id number] Last Released: 11/01/24 Qty/Days Supply: Rx Expiration Date: 02/18/25 Refills Remainin Indication: FOR HIGH BLOOD PRESSURE Non-VA CEPHALEXIN 500MG CAP TAKE 1 CAPSULE BY MOUTH EVERY 6 HOURS January 06, 2024 [place] RX: Non-[place] medication recommended by [place] provider Indication: FOR URINARY TRACT INFECTION OUTPT CYCLOBENZAPRINE HCL 10MG TAB (Status = Active) TAKE ONE TABLET BY MOUTH TWICE DAILY NEEDED FOR MUSCLE SPASM MAY CAUSE DROWSINESS. DO NOT DRINK ALCOHOL WHILE TAKING THIS MEDICATION. Rx# [id number] Last Released: 12/29/24 Qty/Days Supply: / Rx Expiration Date: 10/18/25 Refills Remainin Indication: FOR MUSCLE SPASM OUTPT INDOMETHACIN 25MG CAP (Status = Active) TAKE ONE CAPSULE BY MOUTH TWICE A DAY FOR OSTEOARTHRITIS (TAKE WITH FOOD) Rx# [id number] Last Released: 09/02/24 Qty/Days Supply: Rx Expiration Date: 06/21/25 Refills Remainin Indication: FOR OSTEOARTHRITIS OUTPT LIDOCAINE 5% PATCH (Status = Active) APPLY 1 PATCH TO SKIN SITE ONCE A DAY FOR LOCAL ANESTHESIA APPLY PATCH AND PRESS FIRMLY FOR 10-15 SECONDS. KEEP ON FOR 12 HOURS THEN REMOVE PATCH FOR 12 HOURS. Rx# [id number] Last Released: 05/06/24 Qty/Days Supply: Rx Expiration Date: 05/05/25 Refills Remainin Indication: FOR LOCAL ANESTHESIA OUTPT MONTELUKAST NA 10MG TAB (Status = Active) TAKE ONE TABLET BY MOUTH EVERY EVENING FOR ALLERGIC RHINITIS Rx# [id number] Last Released: 12/18/24 Qty/Days Supply: Rx Expiration Date: 08/01/25 Refills Remainin Indication: FOR ALLERGIC RHINITIS OUTPT ONDANSETRON HCL 8MG TAB (Status = ) TAKE ONE-HALF TABLET BY MOUTH ONCE A DAY NEEDED FOR NAUSEA/VOMITING Rx# [id number] Last Released: 01/26/24 Qty/Days Supply: Rx Expiration Date: 01/22/25 Refills Remainin Indication: FOR NAUSEA/VOMITING OUTPT ROPINIROLE HCL 1MG TAB (Status = Active) TAKE ONE TABLET BY MOUTH TWICE DAILY NEEDED FOR RESTLESS LEG SYNDROME Rx# [id number] Last Released: 11/01/24 Qty/Days Supply: 180 Rx Expiration Date: 06/16/25 Refills Remainin Indication: FOR RESTLESS LEG SYNDROME OUTPT TRAMADOL HCL 50MG TAB (Status = Discontinued) TAKE 1 TABLET BY MOUTH THREE TIMES A DAY NEEDED FOR PAIN Rx# [id number] Last Released: 12/15/24 Qty/Days Supply: Rx Expiration Date: 06/15/25 Refills Remainin Indication: FOR PAIN OUTPT VENLAFAXINE HCL 75MG 24HR SA CAP (Status = Active) TAKE ONE CAPSULE BY MOUTH ONCE A DAY FOR DEPRESSION WITH FOOD. DO NOT ABRUPTLY DISCONTINUE MEDICATION. Rx# [id number] Last Released: 11/01/24 Qty/Days Supply: Rx Expiration Date: 02/21/25 Refills Remainin Indication: FOR DEPRESSION SUPPLIES OUTPT POISE PAD,MODERATE ABSORB EXTRA COVERAGE (Status = Active) USE/APPLY PAD TO AFFECTED AREA(S) TWICE A DAY FOR INCONTINENCE - FEMALES ONLY Rx# [id number] Last Released: 12/25/24 Qty/Days Supply: 216/90 Rx Expiration Date: 09/07/25 Refills Remainin Indication: FOR INCONTINENCE PHARMACY TERMS AND POSSIBLE PATIENT ACTIONS INPT = [place] inpatient order IV = [place] intravenous medication OUTPT = [place] outpatient prescription PHARMACY POSSIBLE PATIENT TERMS EXPLANATION ACTIONS -------- ----- ACTIVE A prescription that can be If you have refills, filled at the local [place] pharmacy. you may request a refill of this prescription from your [place] pharmacy. CLINIC A medication you received during If you have questions a visit to a [place] clinic or about this medication emergency department. contact your [place] healthcare team. DISCONTINUED A prescription your provider has Contact your [facility] stopped. It is no longer healthcare team if you available to be sent to you or need more of this picked up at the [place] pharmacy medication. window. A prescription which is [...] the VA. Or, it may be an aitq-zqh-ibdhksi (OTC), herbal, dietary supplements or sample medication. [...] An active prescription that is Contact your [place] not scheduled to be filled yet. pharmacy [...] NO VITALS: TEMPERATURE: 98 F [36.7 C] (01/31/2025 09:40) BP: 155/101 (01/31/2025 09:40) RESP: 18 (01/08/2025 14:48) PULSE: 74 (01/31/2025 09:40) HT: 69.0 in [175.3 cm] (10/31/2024 14:03) WT: 196.5 lb [89.13 kg] (01/08/2025 14:48) BMI: 29.1 PAIN ASSESSMENT: (Most Recent Pain Score in [...] Now let us serve you. At the [facility], we strive to provide you with exceptional [...] Not At All SPIRITUAL ASSESSMENT: Are there moravian practices or spiritual concerns you want the windows systems architect, your physician, and other health care team members to immediately know about? No Patient advised to call the clinic for any concerns, questions, or symptoms. Patient and/or caregiver verbalized understanding of plan of care. /sarabjit/ JEANIE HARP LPN Signed: 01/31/2025 11:09 JEANIE HARP [facility] Jan 31, 2025 10:49 AM PRIMARY CARE PROGR ESS NOTE: LOCAL TITLE: PRIMARY CARE CLINIC PROGRESS NOTE PB STANDARD TITLE: PRIMARY CARE PROGRESS NOTE DATE OF NOTE: JAN 31, 2025@10:49 ENTRY DATE: JAN 31, 2025@10:49:56 AUTHOR: JUAN CARLOS BRENNAN COSIGNER: URGENCY: STATUS: COMPLETED PROVIDER ASSESSMENT DATE & TIME:Jan@10:49 CHIEF COMPLAINT: Low Back Pain. HISTORY OF PRESENT ILLNESS: [place] would like a referral for her low back pain to pain management now that she is done with her shoulder surgery. She states she continues to have the same pain with right sided sciatica. Active problems/med list cotton puller: 1) Actinic keratosis 2) Arthritis of knee 3) Chronic pain 4) Mpufe-4-zfeqwclmnei deficiency 5) Obstructive sleep apnea syndrome 6) COPD - Chronic Obstructive Pulmonary Disease ([facility] [id number]) 7) Osteoporosis 8) Multiple nodules of lung 9) Cervical spondylosis 10) Hyperlipidemia ([facility] [id number]) 11) Tremor 12) Restless legs 13) Exposure [...] ACTIVE EVENING Indication: FOR ALLERGIC RHINITIS 6) POISE PAD,MODERATE ABSORB EXTRA COVERAGE USE/APPLY PAD TO ACTIVE AFFECTED AREA(S) TWICE A DAY - FEMALES ONLY Indication: FOR INCONTINENCE 7) ROPINIROLE HCL 1MG TAB TAKE ONE TABLET BY MOUTH TWICE DAILY ACTIVE NEEDED Indication: FOR RESTLESS LEG SYNDROME 8) VENLAFAXINE HCL 75MG 24HR SA CAP TAKE ONE CAPSULE BY MOUTH ACTIVE ONCE A DAY WITH FOOD. DO NOT ABRUPTLY DISCONTINUE MEDICATION. Indication: FOR DEPRESSION Active Non-VA Medications Status 1) Non-VA CEPHALEXIN 500MG CAP 500MG BY MOUTH EVERY 6 HOURS ACTIVE Indication: FOR URINARY TRACT INFECTION 9 Total Medications REVIEW OF SYSTEMS: MUSCULOSKELETAL:low back pain. SKIN: No rash, lesions, or infection PSYCH: No Depression or Anxiety. Not suicidal. PHYSICAL ASSESSMENT: VITAL SIGNS Pulse: 74 (01/31/2025 09:40) Blood Pressure: 155/101 (01/31/2025 09:40) Respiratory Rate: 18 (01/08/2025 14:48) Temperature: 98 F [36.7 C] (01/31/2025 09:40) Weight: 196.5 lb [89.13 kg] (01/08/2025 14:48) Height: 69.0 in [175.3 cm] (10/31/2024 14:03) Pain: 4 (05/09/2024 08:31) CARDIAC: Regular rate and rhythm without murmur. No edema. RESPIRATORY: CTA, BEBS GI: Abdomen soft,with ABS. MUSCULOSKELETAL:Low back pain with lumbosacral tenderenss, generalized. Right sided sciatica with equal strength lower extremity bilaterally. SKIN: [place] without rash or lesions. NEUROLOGICAL: The is alert and oriented without distress. Affect appropriate. IMPRESSION: Lumbar Degeneration-current, chronic PLAN: referred to pain management. Continue current medications. RTC as directed. Patient is advised this primary care clinic [...] the After Visit Summary was reviewed with [place]; opportunity provided to report concerns and ask [...] 30 minutes. /sarabjit/ [facility] Signed: 01/31/2025 16:11 JUAN CARLOS BRENNAN
--- OUTSIDE RECORDS SUMMARY | 2025-02-14 04:00 | XMS_ITS | Encounter Summary ---
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 Name Role Phone JUAN CARLOS BRENNAN [...] MEDICARE ADVANTAGE MCR (WNR) Aug 30, 2022 [id number] MARICHUY TEJADA PATIENT [employer] MCR (WNR) MEDICARE ADVANTAGE MCR (WNR) Aug 30, 2022 [id number] MARICHUY TEJADA PATIENT MEDICARE (WNR) MEDICARE (M) PART A Jun 30, 2017 PART A [id number] MARICHUY TEJADA PATIENT MEDICARE (WNR) MEDICARE (M) PART B Jun 30, 2017 PART B [id number] MARICHUY TEJADA PATIENT MEDICARE (WNR) MEDICARE (M) PART A Jun 30, 2017 PART A [id number] MARICHUY TEJADA PATIENT MEDICARE (WNR) MEDICARE (M) PART B Jun 30, 2017 PART B [id number] MARICHUY TEJADA PATIENT [facility] (WNR) MEDICARE ADVANTAGE [facility] (WNR) Sep 30, 2023 [id number] MARICHUY TEJADA PATIENT Selected Encounter This section includes the information on record at [place] for the Encounter. Date/Time Encounter Type Encounter Description Reason Provider Source Feb 14, 2025 09:00 AM OFFICE O/P EST LOW 20 MIN PRIMARY CARE/MEDICINE ICD-10-CM B35.1 ANUEL Munoz Samara Encounter Template Text not used by [place] Assessments - Encounter Diagnoses This section includes the primary and secondary diagnoses documented for the Encounter. Date/Time Primary/Secondary Diagnosis Diagnosis Name Provider Source Feb 14, 2025 09:49 AM PRIMARY PATRICK Munoz [facility] Plan of Treatment: Future Appointments (+ [...] Appointment Type Appointme nt Facility Name Mar 06, 2025 09:30 AM AMBULATORY - MEDICINE [facility] Mar 06, 2025 10:00 AM AMBULATORY - MEDICINE [facility] Mar 07, 2025 10:40 AM AMBULATORY - MEDICINE [facility] Mar 21, 2025 09:40 AM AMBULATORY - MEDICINE [facility] Mar 29, 2025 10:20 AM AMBULATORY - MEDICINE [facility] Apr 04, 2025 09:40 AM AMBULATORY - MEDICINE [facility] Active, Pending, and Scheduled Orders This section includes a listing of several types of active, pending, and scheduled orders, including clinic medications orders, diagnostic test orders, procedure orders and consult orders; where the start date of the order is 45 days before the date of the Encounter or 45 days after the date of theEncounter. The data comes from all [place] treatment facilities. Test Date/Time Test Type Test Details Facility Name Jan 31, 2025 10:55 AM Consult Order COMMUNITY CARE-PAIN [id number] Cons Rough Planer Tender's Choice [facility] [place] [facility] Mar 06, 2025 09:54 AM Consult Order COMMUNITY CARE-OCCUPATIONAL [place] [id number] Cons Rough Planer [facility] Vital Signs: All taken on the encounter date This section contains inpatient and outpatient Vital Signs collected on the date of the Encounter. Date/Time Temperature Pulse Blood Pressure Respiratory Rate SP02 Pain Height Weight Body Mass Index Source Feb 14, 2025 09:39 AM 97.7 F 91 /min 124/80 mm[Hg] 18 /min 97 % 192.4 lb 28 [facility] Social History: Smoking Status (Most current) and Tobacco Use (All prior to encounter date) This section includes the most current, and the historical, smoking and tobacco- related health factors from the [facility] facility where the Encounter took place. Current Smoking Status This section includes the most current smoking, or tobacco-related health factor, from the VA facility where the Encounter took place. Date/Time Current Smoking Status Comment Facil ity Feb 14, 2025 09:00 AM VA-TOBACCO NEVER USED CIGARETTES [facility] Tobacco Use History This section includes a history of the smoking, or tobacco-related health factors, that were collected on or before the date of the Encounter. The data comes from the [place] facility where the Encounter took place. Date/Time Smoking Status/Tobacco Use Comment F acility Feb 14, 2025 09:00 AM VA-TOBACCO NEVER USED OTHER TYPE [facility] January 21, 2024 10:00 AM VA-TOBACCO FORMER USER [facility] January 21, 2024 10:00 AM VA-TOBACCO QUIT 5 TO < 15 YRS [facility] January 27, 2023 12:31 PM VA-TOBACCO FORMER USER [facility] January 27, 2023 12:31 PM VA-TOBACCO QUIT 15 YRS OR MORE [facility] Advance Directives: All historical and current [...] May 14, 2022 ADVANCE DIRECTIVE BERTHA NAZARIO [facility] Feb 05, 2017 ADVANCE DIRECTIVE DISCUSSION PEG SORENSEN [facility] Radiology Reports: +/- 30 days [...] the Encounter. The data comes from all [place] treatment facilities. Date/Time Radiology Report Provider Source Mar 06, 2025 09:56 AM HIP W/PELVIS 2-3 V IEWS RIGHT: MAHESHMARICHUYTYLER ZUNIGA [id number] -1950 F Exm Date: MAR 06, 2025@09:56 Req Phys: JUAN CARLOS BRENNAN Loc: PB-MICHAEL PACT [employer] WH (Req Img Loc: PB-XRAY [facility] Service: [place] [address] (Case [id number] COMPLETE) HIP W/PELVIS 2-3 VIEWS RIGHT (RAD Detailed) CPT:16621 Reason for Study: right hip pain Clinical History: Report Status: Verified Date Reported: MAR 06, 2025 Date Verified: MAR 06, 2025 Tow Driver E-Sig: Report: An AP view of the pelvis and AP and modified frog-leg views of the right hip reveal mild to moderate degenerative skeletal change in the lower lumbar spine and at the SI joints and hips, with no acute osseous or adjacent soft tissue abnormality. Pelvic vascular calcifications are noted. Impression: 1. Degenerative skeletal changes 2. No acute process Primary Interpreting Staff: KIESHA SERNA RADIOLOGIST (Tow Driver, no e-sig) /KIESHA Riggs [facility] January 16, 2025 12:23 PM US CAROTID BILATER AL: MAHESHMARICHUYTYLER ZUNIGA [id number] -1950 F Exm Date: JANUARY 16, 2025@12:23 Req Phys: JUAN CARLOS BRENNAN Loc: OUTSIDE PB-ULTRASOUND (Req'g L Img Loc: OUTSIDE PB-ULTRASOUND Service: Unknown Screen: Patient is unable to answer or is unsure Screen Comment: OUTSIDE STUDY (Case [id number] COMPLETE) US CAROTID BILATERAL (US Detailed) CPT:41428 Reason for Study: Exam imported from outside Clinical History: Original Data for Imported Study Patient Name: Marichuy Tejada Date: 1950 Sex: F Study Date: 01/16/25 Study Time: 12:23:00 Study Description: Carotid Duplex Referring Physician: Eufemia GANDHI Series 1: 49 US files, description: CV carotid duplex BI* [id number] Acquisition site: [place] [address] Report Status: Electronically Filed Date Reported: FEB 01, 2025 Report: No report text Impression: No impression text VERIFIED BY: / *ELECTRONICALLY FILED* EVERT RENDON [facility] Encounter Notes: All associated encounter notes This section contains the clinical notes associated to the Encounter. Date/Time Encounter Note(s) Provider Source Feb 14, 2025 09:39 AM PRIMARY CARE NURSI NG NOTE: LOCAL TITLE: PRIMARY CARE NURSING PROGRESS NOTE (TEXT) NURSING P STANDARD TITLE: PRIMARY CARE NURSING NOTE DATE OF NOTE: FEB 14, 2025@09:39 ENTRY DATE: FEB 14, 2025@09:39:45 AUTHOR: ROBIN PRECIADO COSIGNER: URGENCY: STATUS: COMPLETED Established Patient MARICHUY TEJADA IS A 74 YEAR OLD FEMALE BEING SEEN IN CLINIC FEB 14, 2025. == == REASON FOR VISIT: Acute visit for lost L great toenail Are you receiving care any where other than the [facility]? No HEALTH AND SURGICAL HISTORY: Does patient report using home oxygen? No CURRENT ACTIVE MEDICATIONS FOR REVIEW: If the list for review does not include a component, then it was not applicable to this patient. Allergies/ADRs (Tool #5) FACILITY ALLERGY/ADR -------- [facility] ALBUTEROL [facility] CODEINE [facility] ALBUTEROL [facility] CODEINE [facility] LISINOPRIL [facility] TRAMADOL Med. Reconciliation (Tool #1) INCLUDED IN THIS LIST: Alphabetical list of active outpatient prescriptions dispensed from this [place] (local) and dispensed from another [place] or [facility] facility (remote) as well as inpatient orders (local pending and active), local clinic medications, locally documented non-VA medications, and local prescriptions that have or been discontinued in the past 90 days. Non-VA Meds Last Documented On: January 06, 2024 NOTE The display of VA prescriptions dispensed from another [place] or [facility] facility (remote) is limited to active outpatient prescription entries matched to National Drug File at the originating site and may not include some items such as investigational drugs, compounds, etc. NOT INCLUDED IN THIS LIST: Medications self-entered by the patient into personal health records (i.e. [employer]) are NOT included in this list. Non-VA medications documented outside this [place], remote inpatient orders (regardless of status) and remote clinic medications are NOT included in this list. The patient and provider must always discuss medications the patient is taking, regardless of where the medication was dispensed or obtained. OUTPT AMLODIPINE BESYLATE 2.5MG TAB (Status = Active) TAKE ONE TABLET BY MOUTH ONCE A DAY FOR HIGH BLOOD PRESSURE Rx# [id number] Last Released: 11/01/24 Qty/Days Supply: 90 Rx [...] DRINK ALCOHOL WHILE TAKING THIS MEDICATION. Rx# [id number] Last Released: 12/29/24 Qty/Days Supply: 180 Rx Expiration Date: 10/18/25 Refills Remainin Indication: FOR MUSCLE SPASM OUTPT INDOMETHACIN 25MG CAP (Status = Active) TAKE ONE CAPSULE BY MOUTH TWICE A DAY FOR OSTEOARTHRITIS (TAKE WITH FOOD) Rx# [id number] Last Released: 02/12/25 Qty/Days Supply: 180/90 Rx Expiration Date: 06/21/25 Refills Remainin Indication: FOR OSTEOARTHRITIS OUTPT LIDOCAINE 5% PATCH (Status = Active) APPLY 1 PATCH TO SKIN SITE ONCE A DAY FOR LOCAL ANESTHESIA APPLY PATCH AND PRESS FIRMLY FOR 10-15 SECONDS. KEEP ON FOR 12 HOURS THEN REMOVE PATCH FOR 12 HOURS. Rx# [id number] Last Released: 02/13/25 Qty/Days Supply: Rx Expiration Date: 05/05/25 Refills Remainin Indication: FOR LOCAL ANESTHESIA OUTPT MONTELUKAST NA 10MG TAB (Status = Active) TAKE ONE TABLET BY MOUTH EVERY EVENING FOR ALLERGIC RHINITIS Rx# [id number] Last Released: 12/18/24 Qty/Days Supply: 90/ Rx Expiration Date: 08/01/25 Refills Remainin Indication: FOR ALLERGIC RHINITIS OUTPT ONDANSETRON HCL 8MG TAB (Status = ) TAKE ONE-HALF TABLET BY MOUTH ONCE A DAY NEEDED FOR NAUSEA/VOMITING Rx# [id number] Last Released: 01/26/24 Qty/Days Supply: Rx Expiration Date: 01/22/25 Refills Remainin Indication: FOR NAUSEA/VOMITING OUTPT ROPINIROLE HCL 1MG TAB (Status = Active) TAKE ONE TABLET BY MOUTH TWICE DAILY NEEDED FOR RESTLESS LEG SYNDROME Rx# [id number] Last Released: 11/01/24 Qty/Days Supply: 180 Rx Expiration Date: 06/16/25 Refills Remainin Indication: FOR RESTLESS LEG SYNDROME OUTPT TRAMADOL HCL 50MG TAB (Status = Discontinued) TAKE 1 TABLET BY MOUTH THREE TIMES A DAY NEEDED FOR PAIN Rx# [id number] Last Released: 12/15/24 Qty/Days Supply: Rx Expiration Date: 06/15/25 Refills Remainin Indication: FOR PAIN OUTPT VENLAFAXINE HCL 75MG 24HR SA CAP (Status = Active) TAKE ONE CAPSULE BY MOUTH ONCE A DAY FOR DEPRESSION WITH FOOD. DO NOT ABRUPTLY DISCONTINUE MEDICATION. Rx# [id number] Last Released: 11/01/24 Qty/Days Supply: Rx Expiration Date: 02/21/25 Refills Remainin Indication: FOR DEPRESSION SUPPLIES OUTPT POISE PAD,MODERATE ABSORB EXTRA COVERAGE (Status = Active) USE/APPLY PAD TO AFFECTED AREA(S) TWICE A DAY FOR INCONTINENCE - FEMALES ONLY Rx# [id number] Last Released: 12/25/24 Qty/Days Supply: Rx Expiration Date: 09/07/25 Refills Remainin Indication: FOR INCONTINENCE PHARMACY TERMS AND POSSIBLE PATIENT ACTIONS INPT = [place] inpatient order IV = [place] intravenous medication OUTPT = [place] outpatient prescription PHARMACY POSSIBLE PATIENT TERMS EXPLANATION ACTIONS -------- ----- ACTIVE A prescription that can be If you have refills, filled at the local VA pharmacy. you may request a refill of this prescription from your [place] pharmacy. CLINIC A medication you received during If you have questions a visit to a VA clinic or about this medication emergency department. contact your VA healthcare team. DISCONTINUED A prescription your provider has Contact your VA stopped. It is no longer healthcare team if you available to be sent to you or need more of this picked up at the [place] pharmacy medication. window. A prescription which is [...] the VA. Or, it may be an ciks-dyh-davqkpa (OTC), herbal, dietary supplements or sample medication. [...] An active prescription that is Contact your [place] not scheduled to be filled yet. pharmacy [...] report since last visit? NO VITALS: TEMPERATURE: 97.7 F [36.5 C] (02/14/2025 09:39) BP: 124/80 (02/14/2025 09:39) RESP: 18 (02/14/2025 09:39) PULSE: 91 (02/14/2025 09:39) HT: 69.0 in [175.3 cm] (10/31/2024 14:03) WT: 192.4 lb [87.27 kg] (02/14/2025 09:39) BMI: 28.5 PAIN ASSESSMENT: (Most Recent Pain Score in [...] Now let us serve you. At the [facility], we strive to provide you [...] Not At All SPIRITUAL ASSESSMENT: Are there orthodox practices or spiritual concerns you want the customer success advocate, your physician, and other health care team members to immediately know about? No Patient advised to call the clinic for any concerns, questions, or symptoms. Patient and/or caregiver verbalized understanding of plan of care. Alcohol Use Screen (AUDIT-C) - V: Alcohol Screen: SCREEN FOR ALCOHOL (AUDIT-C) An alcohol screening test (AUDIT-C) was negative (score=0). 1. How often did you have a drink containing alcohol in the past year? Consider a drink to be a 12 ounce can or bottle of regular beer, 8 ounces of malt liquor, a 5 ounce glass of table wine, or a 1.5 ounce shot of liquor (like scotch, gin, or vodka). Never 2. How many drinks containing alcohol did you have on a typical day when you were drinking in the past year? Response not required due to responses to other questions. 3. How often did you have 4 or more drinks on one occasion in the past year? Response not required due to responses to other questions. Tobacco Use Screening - AT,DE,L,M,N,P,PH,PS,RT,S,U: The patient has never smoked cigarettes. The patient has never used other types of tobacco. Weight Control/Nutrition Counseling: * The patient received the following counseling at this encounter: Patient was encouraged to restrict fat, especially saturated fats, in a normal diet. Benefit of a diet high in fiber was discussed. Patient was advised to include 5 or more servings of fruit and vegetables and six or more servings of grains as a well balanced diet. /sarabjit/ Robin Preciado RN [facility], JDouglasP [facility] Signed: 02/14/2025 09:44 ROBIN PRECIADO [facility] Feb 14, 2025 09:24 AM PRIMARY CARE PROGR ESS NOTE: LOCAL TITLE: PRIMARY CARE CLINIC PROGRESS NOTE PB STANDARD TITLE: PRIMARY CARE PROGRESS NOTE DATE OF NOTE: FEB 14, 2025@09:24 ENTRY DATE: FEB 14, 2025@09:24:53 AUTHOR: JUAN CARLOS BRENNANIGNER: URGENCY: STATUS: COMPLETED PROVIDER ASSESSMENT DATE & TIME:Jan@09:24 CHIEF COMPLAINT: Left great toenail check. HISTORY OF PRESENT ILLNESS: states her left great toenail came off while in [place] and is starting to grow back. [place] states it is not tender. It still appears to have some toenail fungus. [place] does not have any signs of infection. Active problems/med list last puller: 1) Actinic keratosis 2) Arthritis of knee 3) Chronic pain 4) Vfjtk-8-qamwmtlwnbs deficiency 5) Obstructive sleep apnea syndrome 6) COPD - Chronic Obstructive Pulmonary Disease ([facility] [id number]) 7) Osteoporosis 8) Multiple nodules of lung 9) Cervical spondylosis 10) Hyperlipidemia ([facility] [id number]) 11) Tremor 12) Restless legs 13) Exposure [...] INFECTION 9 Total Medications REVIEW OF SYSTEMS: HEENT: No Headache. No blurry vision, vision loss, eye pain, red eyes, or foreign body. No runnynose, congestion, or nose bleed. No hearing loss,ringing in the ears, or vertigo. No sore throat or dental pain. RESPIRATORY: No cough, SOA, wheezing, or sputum production. CARDIOVASCULAR: No chest pain, palpitations, tachycardia, PND, or orthopnea. GI: No abdominal pain, nausea, vomiting, diarrhea, constipation, melena, or hematochezia. : No dysuria, hematuria, urinary frequency, weak stream, or post-void dribbling. MUSCULOSKELETAL:No muscle or joint pain. SKIN: No rash, lesions, or infection. toenail fungus PSYCH: No Depression or Anxiety. Not suicidal. PHYSICAL ASSESSMENT: VITAL SIGNS Pulse: 74 (01/31/2025 09:40) Blood Pressure: 155/101 (01/31/2025 09:40) Respiratory Rate: 18 (01/08/2025 14:48) Temperature: 98 F [36.7 C] (01/31/2025 09:40) Weight: 196.5 lb [89.13 kg] (01/08/2025 14:48) Height: 69.0 in [175.3 cm] (10/31/2024 14:03) Pain: 4 (05/09/2024 08:31) SKIN: [place] without rash or lesions. Left great toenail fungus present on small amount of toenail that is present at base. Cuticle intact. NEUROLOGICAL: The is alert and oriented without distress. Affect appropriate. IMPRESSION: Onychomycosis-current PLAN: Continue over the counter treatment. Keep nail trimmed as it grows out. RTC as scheduled. Patient is advised this primary [...] 30 minutes. /sarabjit/ [facility] Signed: 02/14/2025 09:49 JUAN CARLOS BRENNAN
--- OUTSIDE RECORDS SUMMARY | 2025-02-14 04:40 | XMS_ITS | Encounter Summary ---
Author Name [facility] [place] [facility] [place] Address [address] [place] [address] Care Team Providers Care Comb Capper Name Role Phone JUAN CARLOS BRENNAN Primary [...] MEDICARE ADVANTAGE MCR (WNR) Aug 30, 2022 [id number] GERDA TEJADA PATIENT HUMANA MCR (WNR) MEDICARE ADVANTAGE MCR (WNR) Aug 30, 2022 [id number] [phone] GERAD TEJADA PATIENT MEDICARE (WNR) MEDICARE (M) PART A Jun 30, 2017 PART A [id number] [phone] GERDA TEJADA PATIENT MEDICARE (WNR) MEDICARE (M) PART B Jun 30, 2017 PART B [id number] GERDA TEJADA PATIENT MEDICARE (WNR) MEDICARE (M) PART A Jun 30, 2017 PART A [id number] [phone] GERDA TEJADA PATIENT MEDICARE (WNR) MEDICARE (M) PART B Jun 30, 2017 PART B [id number] GERDA TEJADA PATIENT WELLCARE MCR (WNR) MEDICARE ADVANTAGE [facility] (WNR) Sep 30, 2023 [id number] [phone] GERDA TEJADA PATIENT Selected Encounter This section includes the information on record at [place] for the Encounter. 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 Date/Time Primary/Secondary Diagnosis Diagnosis Name Provider Source Feb 14, 2025 09:52 AM PRIMARY Segmental and somatic dysfunction of cervical region MORRIS RICH [facility] Feb 14, 2025 09:52 AM SECONDARY Cervicalgia MORRIS RICH [facility] Feb 14, 2025 09:52 AM SECONDARY Oth intvrt disc degen, lumbosacr w discog bck & lw extrm pn MORRIS RICH [facility] Feb 14, 2025 09:52 AM SECONDARY Pain in thoracic spine MORRIS RICH [facility] Feb 14, 2025 09:52 AM SECONDARY Segmental and somatic dysfunction of lumbar region MORRIS RICH [facility] Feb 14, 2025 09:52 AM SECONDARY Segmental and somatic dysfunction of pelvic region MORRIS RICH [facility] Feb 14, 2025 09:52 AM SECONDARY Segmental and somatic dysfunction of [...] 20 appointments. The data comes from all [place] treatment [facility]. Appointment Date/Time Appointment Type Appointme nt Facility Name Mar 06, 2025 09:30 AM AMBULATORY - MEDICINE [facility] Mar 06, 2025 10:00 AM [facility] Mar 07, 2025 10:40 AM [facility]UL[facility] - MEDICINE [facility] Mar 21, 2025 09:40 AM AMBULATORY - MEDICINE [facility] Mar 29, 2025 10:20 AM AMBULATORY - MEDICINE [facility] Apr 04, 2025 09:40 AM AMBULATORY - MEDICINE [facility] Active, Pending, and Scheduled Orders [...] comes from all [facility]. Test Date/Time Test Type Test Details Facility Name Jan 31, 2025 10:55 AM Consult Order COMMUNITY CARE-PAIN 657A4 Cons Music Artist's Choice [facility] Mar 06, 2025 09:54 AM Consult Order COMMUNITY CARE-OCCUPATIONAL [place] 657A4 Cons Music Artist's [facility] Vital Signs: All taken on the encounter date This section contains inpatient and outpatient Vital Signs collected on the date of the Encounter. Date/Time Temperature Pulse Blood Pressure Respiratory Rate SP02 Pain Height Weight Body Mass Index Source Feb 14, 2025 09:39 AM 97.7 F 91 /min 124/80 mm[Hg] 18 /min 97 % 192.4 lb 28 [facility] Social History: Smoking Status (Most current) and Tobacco Use (All prior to encounter date) This section includes the most current, and the historical, smoking and tobacco- related health factors from the [place] facility where the Encounter took place. Current Smoking Status This section includes the most current smoking, or tobacco-related health factor, from the [place] facility where the Encounter took place. Date/Time Current Smoking Status Kim masters Feb 14, 2025 09:00 AM [place]-TOBACCO NEVER USED CIGARETTES [facility] Tobacco Use History This section includes a history of the smoking, or tobacco-related health factors, that were collected on or before the date of the Encounter. The data comes from the [place] facility where the Encounter took place. Date/Time Smoking Status/Tobacco Use Comment F acility Feb 14, 2025 09:00 AM VA-TOBACCO NEVER USED OTHER TYPE [facility] January 21, 2024 10:00 AM VA-TOBACCO FORMER USER [facility] January 21, 2024 10:00 AM VA-TOBACCO QUIT 5 TO < 15 YRS [facility] January 27, 2023 12:31 PM VA-TOBACCO FORMER USER [facility] January 27, 2023 12:31 PM VA-TOBACCO QUIT 15 YRS OR MORE [facility] Advance Directives: All historical and current Section Date Range: From patient's date of to the date document was created. This section includes ALL of a patient's completed or amended [place] Advance and Rescinded Directives. The entries below indicate that a directive exists for the patient, but an actual copy is not included with this document. The data comes from all [place] facilities. Date Advance Directives Provider Source May [...] the Encounter. The data comes from all [place] treatment facilities. 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 (Req Img Loc: PB-XRAY [place] Service: [place] [address] (Case [id number] COMPLETE) HIP W/PELVIS 2-3 VIEWS RIGHT (RAD Detailed) CPT:32543 Reason for Study: right hip pain Clinical History: Report Status: Verified Date Reported: MAR 06, 2025 Date Verified: MAR 06, 2025 Traffic Director E-Sig: Report: An AP view of the [...] process Primary Interpreting Staff: KIESHA SERNA RADIOLOGIST (Traffic Director, no e-sig) /KIESHA [facility] January 16, 2025 12:23 PM US CAROTID BILATER AL: GERDA TEJADA [id number] -1950 F Exm Date: JANUARY 16, 2025@12:23 Req Phys: JUAN CARLOS RBENNAN Loc: OUTSIDE PB-ULTRASOUND (Req'g L Img Loc: OUTSIDE PB-ULTRASOUND Service: Unknown Screen: Patient is unable to answer or is unsure Screen Comment: OUTSIDE STUDY (Case [id number] COMPLETE) US CAROTID BILATERAL (US Detailed) CPT:29956 Reason for Study: Exam imported from outside Clinical History: Original Data for Imported Study Patient Name: Gerda Tejada Date: 1950 Sex: F Study Date: 01/16/25 Study Time: 12:23:00 Study Description: Carotid Duplex Referring Physician: Eufemia GANDHI Series 1: 49 US files, description: CV carotid duplex BI* 87[address] Acquisition site: [place] [address] Report Status: Electronically Filed Date Reported: FEB 01, 2025 Report: No report text Impression: No impression text VERIFIED BY: / *ELECTRONICALLY FILED* EVERT RENDON [facility] Encounter Notes: All associated encounter notes This section contains the clinical notes associated to the Encounter. Date/Time Encounter Note(s) Provider Source Feb 14, 2025 09:45 AM CHIROPRACTIC NOTE: LOCAL TITLE: CHIROPRACTIC FOLLOW UP NOTE PB STANDARD TITLE: CHIROPRACTIC NOTE DATE OF NOTE: FEB 14, 2025@09:45 ENTRY DATE: FEB 14, 2025@09:45:30 AUTHOR: MORRIS RICH COSIGNER: URGENCY: STATUS: COMPLETED CHIROPRACTIC FOLLOW-UP VISIT Patient's language preference for health information: Chinese Other Communication Methods Needed: SUBJECTIVE: The [place] is a 74 year old FEMALE being seen in the Chiropractic clinic for follow-up visit. The [place] describes her neck and back as fair overall, with persistent pain in the lower back. She states her left shoulder is okay. Today, the rates her pain level as [...] restricted AROM. LUMBAR/THORACIC SPINE: MOVEMENT/POSTURE: The ambulates slowly with guarding. SEGMENTAL DYSFUNCTION: Joint [...] and trigger points. PLAN: This is the first follow up treatment for the of a planned six treatments. Due to persistent neck and back pain, we will treat The [place] once every two weeks for six treatments. [...] exercise plan. /sarabjit/ [facility] Signed: 02/14/2025 09:51 MORRIS RICH
--- OUTSIDE RECORDS SUMMARY | 2025-03-06 04:30 | XMS_ITS | Encounter Summary ---
Author Name [facility] [facility] [place] [facility] [place] Address [address] [place] [address] Care Team Providers Care Crucible Packer Name Role Phone JUAN CARLOS BRENNAN Primary [...] MEDICARE ADVANTAGE MCR (WNR) Aug 30, 2022 [id number] [phone] GERDA ARAGON PATIENT HUMANA MCR (WNR) MEDICARE ADVANTAGE MCR (WNR) Aug 30, 2022 [id number] GERDA ARAGON PATIENT MEDICARE (WNR) MEDICARE (M) PART A Jun 30, 2017 PART A [id number] [phone] GERDA ARAGON PATIENT MEDICARE (WNR) MEDICARE (M) PART B Jun 30, 2017 PART B [id number] [phone] GERDA ARAGON PATIENT MEDICARE (WNR) MEDICARE (M) PART A Jun 30, 2017 PART A [id number] GERDA ARAGON PATIENT MEDICARE (WNR) MEDICARE (M) PART B Jun 30, 2017 PART B [id number] GERDA ARAGON PATIENT WELLCARE [facility] (WNR) MEDICARE ADVANTAGE [facility] (WNR) Sep 30, 2023 [id number] GERDA ARAGON PATIENT Selected Encounter This section includes the information on [place] at [place] for the Encounter. Date/Time Encounter Type Encounter Description Reason Provider Source Mar 06, 2025 09:30 AM Outpatient Encounter PRIMARY CARE/MEDICINE FELICE BRENNAN Encounter Template Text not used by [place] Plan of Treatment: Future Appointments (+ 6 months) and Future Tests (+/- 45 days) The Plan of Treatment section includes future care activities for the patient from all [place] treatmentfacilities. This section includes future appointments and future orders which are active, pending or scheduled. Future Appointments This section includes appointments that were scheduled to occur 6 months from the date of the Encounter, up to a maximum of 20 appointments. The data comes from all [place] treatment facilities. Appointment Date/Time Appointment Type Appointme nt Facility Name Mar 07, 2025 10:40 AM AMBULATORY - MEDICINE [facility] Mar 21, 2025 09:40 AM AMBULATORY - MEDICINE [facility] Mar 29, 2025 10:20 AM AMBULATORY - MEDICINE [facility] Apr 04, 2025 09:40 AM AMBULATORY - MEDICINE [facility] Active, Pending, and Scheduled Orders This section includes a listing of several types of active, pending, and scheduled orders, including clinic medications orders, diagnostic test orders, procedure orders and consult orders; where the start date of the order is 45 days before the date of the Encounter or 45 days after the date of theEncounter. The data comes from all [place] treatment [facility]. Test Date/Time Test Type Test Details Facility Name Jan 31, 2025 10:55 AM Consult Order COMMUNITY CARE-PAIN 657A4 Cons Dressmaker Garment Fitter's Choice [facility] Mar 06, 2025 09:54 AM Consult Order COMMUNITY CARE-OCCUPATIONAL [place] 657A4 Cons Dressmaker Garment Fitter's Choice [facility] Social History: Smoking Status [...] Date/Time Current Smoking Status Comment Hank ity Feb 14, 2025 09:00 AM VA-TOBACCO NEVER USED CIGARETTES [facility] Tobacco Use History This section includes a history of the smoking, or tobacco-related health factors, that were collected on or before the date of the Encounter. The data comes from the [place] facility where the Encounter took place. Date/Time Smoking Status/Tobacco Use Comment F acility Feb 14, 2025 09:00 AM VA-TOBACCO NEVER USED OTHER TYPE [facility] January 21, 2024 10:00 AM VA-TOBACCO FORMER USER [facility] January 21, 2024 10:00 AM VA-TOBACCO QUIT 5 TO < 15 YRS [facility] January 27, 2023 12:31 PM VA-TOBACCO FORMER USER [facility] January 27, 2023 12:31 PM VA-TOBACCO QUIT 15 YRS OR MORE [facility] Advance Directives: All historical and [...] W/PELVIS 2-3 V IEWS RIGHT: GERDA ARAGON [id number] -1950 F Exm Date: MAR 06, 2025@09:56 Req Phys: JUAN CARLOS BRENNAN Pat Loc: PB-MICHAEL PACT 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 Date/Time Encounter Note(s) Provider Source Mar 06, 2025 09:30 AM PRIMARY CARE NURSI NG NOTE: LOCAL TITLE: PRIMARY CARE NURSING PROGRESS NOTE (TEXT) NURSING P STANDARD TITLE: PRIMARY CARE NURSING NOTE DATE OF NOTE: MAR 06, 2025@09:30 ENTRY DATE: MAR 06, 2025@10:06:34 AUTHOR: ROBIN PRECIADO EXP COSIGNER: URGENCY: STATUS: COMPLETED PRIMARY CARE NURSING PROGRESS NOTE (TEXT) NURSING PB Has ADDENDA Established Patient GERDA ARAGON IS A 74 YEAR OLD FEMALE BEING SEEN IN CLINIC MAR 06, 2025. == == REASON FOR VISIT: Right hip pain Are you receiving care any where other than the [facility]? No HEALTH AND SURGICAL HISTORY: Does patient report using home oxygen? No CURRENT ACTIVE MEDICATIONS FOR REVIEW: If the list for review does not include a component, then it was not applicable to this patient. Allergies/ADRs (Tool #5) FACILITY ALLERGY/ADR -------- [facility] ALBUTEROL [facility] CODEINE [facility] ALBUTEROL [facility] CODEINE [facility] LISINOPRIL [facility] TRAMADOL Med. Reconciliation (Tool #1) INCLUDED IN THIS LIST: Alphabetical list of active outpatient prescriptions dispensed from this [place] (local) and dispensed from another [place] or [facility] facility (remote) as well as inpatient orders (local pending and active), local clinic medications, locally documented non-VA medications, and local prescriptions that have or been discontinued in the past 90 days. Non-VA Meds Last Documented On: January 06, 2024 NOTE The display of VA prescriptions dispensed from another [place] or [facility] facility (remote) is limited to active outpatient prescription entries matched to National Drug File at the originating site and may not include some items such as investigational drugs, compounds, etc. NOT INCLUDED IN THIS LIST: Medications self-entered by the patient into personal health records (i.e. [employer]) are NOT included in this list. Non-VA medications documented outside this [place], remote inpatient orders (regardless of status) and remote clinic medications are NOT included in this list. The patient and provider must always discuss medications the patient is taking, regardless of where the medication was dispensed or obtained. OUTPT AMLODIPINE BESYLATE 2.5MG TAB (Status = ) TAKE ONE TABLET BY MOUTH ONCE A DAY FOR HIGH BLOOD PRESSURE Rx# [id number] Last Released: 11/01/24 Qty/Days Supply: Rx Expiration Date: 02/18/25 Refills Remainin Indication: FOR HIGH BLOOD PRESSURE Non-VA CEPHALEXIN 500MG CAP TAKE 1 CAPSULE BY MOUTH EVERY 6 HOURS January 06, 2024 [place] RX: Non-VA medication recommended by [place] provider Indication: FOR URINARY TRACT INFECTION OUTPT CYCLOBENZAPRINE HCL 10MG TAB (Status = Active/Suspended) TAKE ONE TABLET BY MOUTH TWICE DAILY NEEDED FOR MUSCLE SPASM MAY CAUSE DROWSINESS. DO NOT DRINK ALCOHOL WHILE TAKING THIS MEDICATION. Rx# [id number] Last Released: 12/29/24 Qty/Days Supply: 180 Rx Expiration Date: 10/18/25 Refills Remainin Indication: FOR MUSCLE SPASM OUTPT INDOMETHACIN 25MG CAP (Status = Active) TAKE ONE CAPSULE BY MOUTH TWICE A DAY FOR OSTEOARTHRITIS (TAKE WITH FOOD) Rx# [id number] Last Released: 02/12/25 Qty/Days Supply: [id number] Rx Expiration Date: 06/21/25 Refills Remainin Indication: FOR OSTEOARTHRITIS OUTPT LIDOCAINE 5% PATCH (Status = Active) APPLY 1 PATCH TO SKIN SITE ONCE A DAY FOR LOCAL ANESTHESIA APPLY PATCH AND PRESS FIRMLY FOR 10-15 SECONDS. KEEP ON FOR 12 HOURS THEN REMOVE PATCH FOR 12 HOURS. Rx# [id number] Last Released: 02/13/25 Qty/Days Supply: 90 Rx Expiration Date: 05/05/25 Refills Remainin Indication: FOR LOCAL ANESTHESIA OUTPT MONTELUKAST NA 10MG TAB (Status = Active) TAKE ONE TABLET BY MOUTH EVERY EVENING FOR ALLERGIC RHINITIS Rx# [id number] Last Released: 12/18/24 Qty/Days Supply: 9090 Rx Expiration Date: 08/01/25 Refills Remainin Indication: FOR ALLERGIC RHINITIS OUTPT ONDANSETRON HCL 8MG TAB (Status = ) TAKE ONE-HALF TABLET BY MOUTH ONCE A DAY NEEDED FOR NAUSEA/VOMITING Rx# [id number] Last Released: 01/26/24 Qty/Days Supply: Rx Expiration Date: 01/22/25 Refills Remainin Indication: FOR NAUSEA/VOMITING OUTPT ROPINIROLE HCL 1MG TAB (Status = Active) TAKE ONE TABLET BY MOUTH TWICE DAILY NEEDED FOR RESTLESS LEG SYNDROME Rx# [id number] Last Released: 11/01/24 Qty/Days Supply: 180 Rx Expiration Date: 06/16/25 Refills Remainin Indication: FOR RESTLESS LEG SYNDROME OUTPT TRAMADOL HCL 50MG TAB (Status = Discontinued) TAKE 1 TABLET BY MOUTH THREE TIMES A DAY NEEDED FOR PAIN Rx# [id number] Last Released: 12/15/24 Qty/Days Supply: Rx Expiration Date: 06/15/25 Refills Remainin Indication: FOR PAIN OUTPT VENLAFAXINE HCL 75MG 24HR SA CAP (Status = ) TAKE ONE CAPSULE BY MOUTH ONCE A DAY FOR DEPRESSION WITH FOOD. DO NOT ABRUPTLY DISCONTINUE MEDICATION. Rx# [id number] Last Released: 11/01/24 Qty/Days Supply: Rx Expiration Date: 02/21/25 Refills Remainin Indication: FOR DEPRESSION SUPPLIES OUTPT POISE PAD,MODERATE ABSORB EXTRA COVERAGE (Status = Active) USE/APPLY PAD TO AFFECTED AREA(S) TWICE A DAY FOR INCONTINENCE - FEMALES ONLY Rx# [id number] Last Released: 12/25/24 Qty/Days Supply: Rx Expiration Date: 09/07/25 Refills Remainin Indication: FOR INCONTINENCE PHARMACY TERMS AND POSSIBLE PATIENT ACTIONS INPT = [place] inpatient order IV = [place] intravenous medication OUTPT = [place] outpatient prescription PHARMACY POSSIBLE PATIENT TERMS EXPLANATION [...] more of this picked up at the [place] pharmacy medication. window. A prescription which is [...] the [facility]. Or, it may be an boga-kan-dhguaca (OTC), herbal, dietary supplements or sample medication. [...] Now let us serve you. At the [facility], we strive to provide you with exceptional [...] Not At All SPIRITUAL ASSESSMENT: Are there holiness practices or spiritual concerns you want the lead technical writer, your physician, and other health care team members to immediately know about? No Patient advised to call the clinic for any concerns, questions, or symptoms. Patient and/or caregiver verbalized understanding of plan of care. /sarabjit/ RAJNI Suárez, [facility] Signed: 03/06/2025 10:09 03/06/2025 ADDENDUM STATUS: COMPLETED Correction orginal note. reported hip pain 05/09. /RAJNI Toribio, [facility] Signed: 03/06/2025 10:09 ROBIN PRECIADO PR ABHIJEET
--- OUTSIDE RECORDS SUMMARY | 2025-03-06 05:00 | XMS_ITS | Encounter Summary ---
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 Name Role Phone JUAN CARLOS BRENNAN Primary [...] MEDICARE ADVANTAGE MCR (WNR) Aug 30, 2022 [id number] GERDA ARAGON PATIENT [employer] MCR (WNR) MEDICARE ADVANTAGE MCR (WNR) Aug 30, 2022 [id number] [phone] GERDA ARAGON PATIENT MEDICARE (WNR) MEDICARE (M) PART B Jun 30, 2017 PART B [id number] GERDA ARAGON PATIENT MEDICARE (WNR) MEDICARE (M) PART A Jun 30, 2017 PART A [id number] GERDA ARAGON PATIENT MEDICARE (WNR) MEDICARE (M) PART B Jun 30, 2017 PART B [id number] GERDA ARAGON PATIENT MEDICARE (WNR) MEDICARE (M) PART A Jun 30, 2017 PART A [id number] GERDA ARAGON PATIENT [facility] (WNR) MEDICARE ADVANTAGE [facility] (WNR) Sep 30, 2023 [id number] GERDA ARAGON PATIENT Selected Encounter This section includes the information on record at [place] for the Encounter. Date/Time Encounter Type Encounter Description Reason Provider Source Mar 06, 2025 10:00 AM CHIROPRACT MAN 3-4 [employer] ICD-10-CM M99.01 Segmental and somatic dysfunction of cervical region MORRIS RICH Encounter Template Text not used by [facility] Assessments - Encounter Diagnoses This section includes the primary and secondary diagnoses documented for the Encounter. Date/Time Primary/Secondary Diagnosis Diagnosis Name Provider Source Mar 06, 2025 11:02 AM PRIMARY Segmental and somatic dysfunction of cervical region MORRIS RICH [facility] Mar 06, 2025 11:02 AM SECONDARY Cervicalgia MORRIS RICH [facility] Mar 06, 2025 11:02 AM SECONDARY Oth intvrt disc degen, lumbosacr w discog bck & lw extrm pn MORRIS RICH [facility] Mar 06, 2025 11:02 AM SECONDARY Pain in thoracic spine MORRIS RICH [facility] Mar 06, 2025 11:02 AM SECONDARY Segmental and somatic dysfunction of lumbar region MORRIS RICH [facility] Mar 06, 2025 11:02 AM SECONDARY Segmental and somatic dysfunction of pelvic region MORRIS RICH [facility] Mar 06, 2025 11:02 AM SECONDARY Segmental and somatic dysfunction of thoracic region MORRIS RICH [facility] Plan of Treatment: Future Appointments [...] data comes from all [place] treatment facilities. Appointment Date/Time Appointment Type Appointme nt Facility Name Mar 07, 2025 10:40 AM AMBULATORY - MEDICINE [facility] Mar 21, 2025 09:40 AM AMBULATORY - MEDICINE [facility] Mar 29, 2025 10:20 AM AMBULATORY - MEDICINE [facility] Apr 04, 2025 09:40 AM AMBULATORY - MEDICINE [facility] Active, Pending, and Scheduled Orders This section includes a listing of several types of active, pending, and scheduled orders, including clinic medications orders, diagnostic test orders, procedure orders and consult orders; where the start date of the order is 45 days before the date of the Encounter or 45 days after the date of theEncounter. The data comes from all [facility] facilities. Test Date/Time Test Type Test Details Facility Name Jan 31, 2025 10:55 AM Consult Order COMMUNITY CARE-PAIN 657A4 Cons Pcat Instructor's Choice [facility] Mar 06, 2025 09:54 AM Consult Order COMMUNITY CARE-OCCUPATIONAL [place] 657A4 Cons Pcat Instructor's [facility] Social History: Smoking Status (Most current) [...] 2025 09:00 AM VA-TOBACCO NEVER USED CIGARETTES [facility] Tobacco Use History This section includes a history of the smoking, or tobacco-related health factors, that were collected on or before the date of the Encounter. The data comes from the [place] facility where the Encounter took place. Date/Time Smoking Status/Tobacco Use Comment F acility Feb 14, 2025 09:00 AM VA-TOBACCO NEVER USED OTHER TYPE [facility] January 21, 2024 10:00 AM VA-TOBACCO FORMER USER [facility] January 21, 2024 10:00 AM VA-TOBACCO QUIT 5 TO < 15 YRS [facility] [...] W/PELVIS 2-3 V IEWS RIGHT: GERDA ARAGON [id number] -1950 F Exm Date: MAR 06, 2025@09:56 Req Phys: JUAN CARLOS BRENNAN Pat Loc: PB-MICHAEL PACT [employer] [facility] (Req Img Loc: [facility] [place] Service: [place] [address] (Case [id number] COMPLETE) HIP W/PELVIS 2-3 VIEWS RIGHT (RAD Detailed) CPT:85623 Reason for Study: right hip pain Clinical History: Report Status: Verified Date Reported: MAR 06, 2025 Date Verified: MAR 06, 2025 Anti Air Warfare Operations Officer E-Sig: Report: An AP view of the [...] process Primary Interpreting Staff: KIESHA SERNA, RADIOLOGIST (Anti Air Warfare Operations Officer, no e-sig) /KIESHA Riggs [facility] Encounter Notes: All associated encounter notes This section contains the clinical notes associated to the Encounter. Date/Time Encounter Note(s) Provider Source Mar 06, 2025 10:52 AM CHIROPRACTIC NOTE: LOCAL TITLE: CHIROPRACTIC FOLLOW UP NOTE PB STANDARD TITLE: CHIROPRACTIC NOTE DATE OF NOTE: MAR 06, 2025@10:52 ENTRY DATE: MAR 06, 2025@10:52:58 AUTHOR: MORRIS RICH COSIGNER: URGENCY: STATUS: COMPLETED CHIROPRACTIC FOLLOW-UP VISIT Patient's language preference for health information: Yakut Other Communication Methods Needed: SUBJECTIVE: The [place] is a 74 year old FEMALE being seen in the Chiropractic clinic for follow-up visit. The states her lower back and hip pain flared up over the past weekend, making it very difficult to walk, and using a cane for assistance. The was treated by her PCP today with x-rays of the lower back and hips. Today, the rates her pain level as [...] restricted in all planes of motion. The [place] experience pain with the restricted AROM. LUMBAR/THORACIC [...] and trigger points. PLAN: This is the second follow up treatment for the of a planned six treatments. Due to persistent neck and back pain, we will treat The [place] once every two weeks for six treatments. [...] exercise program and to commit to a prison exercise plan. /sarabjit/ SEN [facility] Signed: 03/06/2025 11:02 MORRIS RICH
--- OUTSIDE RECORDS SUMMARY | 2025-03-07 05:40 | XMS_ITS | Encounter Summary ---
Author Name [facility] [place] [facility] [place] Address [address] [place] [address] Care Team Providers Care Ophthalmic Medical Technician Name Role Phone JUAN CARLOS BRENNAN [...] MEDICARE ADVANTAGE MCR (WNR) Aug 30, 2022 [id number] [phone] GERDA ARAGON PATIENT [employer] MCR (WNR) MEDICARE ADVANTAGE MCR (WNR) Aug 30, 2022 [id number] GERDA ARAGON PATIENT MEDICARE (WNR) MEDICARE (M) PART A Jun 30, 2017 PART A [id number] GERDA ARAGON PATIENT MEDICARE (WNR) MEDICARE (M) PART B Jun 30, 2017 PART B [id number] GERDA ARAGON PATIENT MEDICARE (WNR) MEDICARE (M) PART A Jun 30, 2017 PART A [id number] GERDA ARAGON PATIENT MEDICARE (WNR) MEDICARE (M) PART B Jun 30, 2017 PART B [id number] GERDA ARAGON PATIENT [facility] MCR (WNR) MEDICARE ADVANTAGE [facility] (WNR) Sep 30, 2023 [id number] GERDA ARAGON PATIENT Selected Encounter This section includes the information on [place] at [place] for the Encounter. Date/Time Encounter Type Encounter Description Reason Provider Source Mar 07, 2025 10:40 AM CHIROPRACT MAN 3-4 [employer] ICD-10-CM M99.01 Segmental and somatic dysfunction of cervical region MORRIS RICH Encounter Template Text not used by [facility] Assessments - Encounter Diagnoses This section includes the primary and secondary diagnoses documented for the Encounter. Date/Time Primary/Secondary Diagnosis Diagnosis Name Provider Source Mar 07, 2025 10:13 AM PRIMARY Segmental and somatic dysfunction of cervical region M[facility]RIS RICH [facility] Mar 07, 2025 10:13 AM SECONDARY Cervicalgia MORRIS RICH [facility] Mar 07, 2025 10:13 AM SECONDARY Oth intvrt disc degen, lumbosacr rgn w discog bck pain only M[facility]RIS RICH [facility] Mar 07, 2025 10:13 AM SECONDARY Pain in thoracic spine [facility] R[facility] Mar 07, 2025 10:13 AM SECONDARY Segmental and somatic dysfunction of lumbar region [facility] Mar 07, 2025 10:13 AM SECONDARY Segmental and somatic dysfunction of pelvic region [facility] Mar 07, 2025 10:13 AM SECONDARY Segmental and somatic dysfunction of [...] 20 appointments. The data comes from all [place] treatment facilities. Appointment Date/Time Appointment Type Appointme nt Facility Name Mar 21, 2025 09:40 AM AMBULATORY - MEDICINE [facility] Mar 29, 2025 10:20 AM AM[facility]ORY - MEDICINE [facility] [facility] Apr 04, 2025 09:40 AM AMBULATORY - MEDICINE [facility] Active, Pending, and Scheduled Orders This section includes a listing of several types of active, pending, and scheduled orders, including clinic medications orders, diagnostic test orders, procedure orders and consult orders; where the start date of the order is 45 days before the date of the Encounter or 45 days after the date of theEncounter. The data comes from all [place] treatment facilities. Test Date/Time Test Type Test Details Facility Name Jan 31, 2025 10:55 AM Consult Order COMMUNITY CARE-PAIN 657A4 Cons Office Lead's Choice [facility] Mar 06, 2025 09:54 AM Consult Order COMMUNITY CARE-OCCUPATIONAL [place] 657A4 Cons Office Lead's Choice [facility] Social History: Smoking Status (Most current) and Tobacco Use (All prior to encounter date) This section includes the most current, and the historical, smoking and tobacco- related health factors from the [place] facility where the Encounter took place. Current Smoking Status This section includes the most current smoking, or tobacco-related health factor, from the [place] facility where the Encounter took place. Date/Time Current Smoking Status Comment Hank ity Feb 14, 2025 09:00 AM VA-TOBACCO NEVER USED CIGARETTES [facility] Tobacco Use History This section includes a history of the smoking, or tobacco-related health factors, that were collected on or before the date of the Encounter. The data comes from the [place] facility where the Encounter took place. Date/Time Smoking Status/Tobacco Use Comment F acility Feb 14, 2025 09:00 AM VA-TOBACCO NEVER USED OTHER TYPE [facility] January 21, 2024 10:00 AM VA-TOBACCO FORMER USER [facility] January 21, 2024 10:00 AM VA-TOBACCO QUIT 5 TO < 15 YRS [facility] January 27, 2023 12:31 PM VA-TOBACCO FORMER USER [facility] January 27, 2023 12:31 PM VA-TOBACCO QUIT 15 YRS OR MORE [facility] Advance Directives: All historical and current Section Date Range: From patient's date of to the date document was created. This section includes ALL of a patient's completed or amended [place] Advance and Rescinded Directives. The entries below indicate that a directive exists for the patient, but an actual copy is not included with this document. The data comes from all [place] facilities. Date Advance Directives Provider Source May 14, 2022 ADVANCE DIRECTIVE BERTHA NAZARIO Feb 05, 2017 ADVANCE DIRECTIVE DISCUSSION PEG SORENSEN Radiology Reports: +/- 30 days of the [...] the Encounter. The data comes from all [place] treatment facilities. Date/Time Radiology Report Provider Source Mar 06, 2025 09:56 AM HIP W/PELVIS 2-3 V IEWS RIGHT: GERDA ARAGON [id number] -1950 F Exm Date: MAR 06, 2025@09:56 Req Phys: JUAN CARLOS BRENNAN Loc: PB-MICHAEL PACT [employer] [facility] (Req Img Loc: [facility] [place] Service: [place] [address] (Case [id number] COMPLETE) HIP W/PELVIS 2-3 VIEWS RIGHT (RAD Detailed) CPT:19128 Reason for Study: right hip pain Clinical History: Report Status: Verified Date Reported: MAR 06, 2025 Date Verified: MAR 06, 2025 Restaurant Crew E-Sig: Report: An AP view of the [...] process Primary Interpreting Staff: KIESHA SERNA, RADIOLOGIST (Restaurant Crew, no e-sig) /KIESHA Riggs [facility] Encounter Notes: All associated encounter notes This section contains the clinical notes associated to the Encounter. Date/Time Encounter Note(s) Provider Source Mar 07, 2025 10:02 AM CHIROPRACTIC NOTE: LOCAL TITLE: CHIROPRACTIC FOLLOW UP NOTE PB STANDARD TITLE: CHIROPRACTIC NOTE DATE OF NOTE: MAR 07, 2025@10:02 ENTRY DATE: MAR 07, 2025@10:02:34 AUTHOR: MORRIS RICH COSIGNER: URGENCY: STATUS: COMPLETED CHIROPRACTIC FOLLOW-UP VISIT Patient's language preference for health information: Kiswahili Other Communication Methods Needed: SUBJECTIVE: The Mcgill is a 74 year old FEMALE being seen in the Chiropractic clinic for follow-up visit. The Mcgill states she is feeling a lot better following her treatment yesterday. She states she is walking better, but struggles to get into her truck due to the lower back and hip pain. Today, the rates her pain level as [...] restricted in all planes of motion. The Mcgill experience pain with the restricted AROM. LUMBAR/THORACIC [...] and trigger points. PLAN: This is the third follow up treatment for the of a planned six treatments. Due to persistent neck and back pain, we will treat The once every two weeks for six treatments. Prognosis: Fair Today's treatment of the consisted of chiropractic spinal adjustment of the cervical spine (prone), thoracic spine (prone), and lumbar spine (prone) using Arthrostim and adjustment of the pelvis (prone) using Palmer technique. The procedure was well tolerated by the [...] exercise plan. /sarabjit/ SEN [facility] Signed: 03/07/2025 10:12 MORRIS RICH
--- OUTSIDE RECORDS SUMMARY | 2025-03-12 01:25 | XMS_ITS | Continuity of Care Document ---
Author Name [facility] Organization 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 Unavailable Unavailable Problems Combined list of problems from Department of Defense and [facility] facilities. It does not include entries that were removed or entered in error. Problem Status Onset Date Problem Type Date of Resolution Comments Source Actinic keratosis Active Condition [facility] Udyzv-8-fdipxcekgz n deficiency Active Condition [facility] Arthritis of knee Active Condition [facility] Arthritis of right knee Active Condition [facility] Attends well woman monitoring Active Condition [facility] Bilateral tinnitus Active Condition [place] [facility] Cervical somatic dysfunction Active Condition [facility] Cervical spondylosis Active Condition [facility] Cervical spondylosis without myelopathy Active Condition [facility] Chronic pain Active Condition [facility] COPD - Chronic Obstructive Pulmonary Disease ([facility] [id number]) Active Condition [facility] Decreased diffusion capacity of lung Active Condition [facility] Dry mouth Active Condition [facility] Exposure to potentially hazardous substance Active Condition [facility] Exposure to Potentially Hazardous Substance ([facility] [id number]) Active Condition 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 History of actinic keratosis Active Condition [facility] Hyperlipidemia Active Condition [facility] Hyperlipidemia (SCT [id number]) Active Condition [facility] Medical examinations/repor ts status Active Condition [facility] Multiple nodules of lung Active Condition Apr 06, 2023 Entered By: PATRICK BRENNAN Comment: next CT due Aug 2023 [facility] Multiple pulmonary nodules Active Condition Sep 21, 2017 Entered By: MEL NICHOLAS Comment: Lung nodule tracking begun 02/05/2017Jun 2021 Entered By: MARCELINO ECHEVARRIA Comment: was stable as of 2019 and no further follow up recommended [facility] Myalgia Active Condition [facility] Myofascial pain Active Condition [facility] Obstructive sleep apnea Active Condition [facility] Obstructive Sleep Apnea of Adult (SCT [id number]) Active Condition [facility] Obstructive sleep apnea syndrome Active Condition [facility] Onychomycosis Active Condition [facility] Osteoporosis Active Condition [facility] Polyneuropathy Active Condition [facility] Pulmonary emphysema Active Condition Mar 31, 2018 Entered By: ESTUARDO STYLES Comment: mild with normal PFTs [facility] Restless legs Active Condition [facility] Restless legs syndrome Active Condition [facility] Sensorineural hearing loss of bilateral ears Active Condition [facility] [facility] Somatic dysfunction of pelvic region Active Condition [facility] Somatic dysfunction of rib Active Condition [facility] Somatic dysfunction of sacral spine Active Condition [facility] Somatic dysfunction of thoracic region Active Condition [facility] Tremor Active Condition [facility] Diagnosis: ICD-10-CM M99.01 Segmental and somatic dysfunction of cervical region Active Diagnosis [facility] Diagnosis: ICD-10-CM B35.1 Tinea unguium Active Diagnosis [facility] Diagnosis: ICD-10-CM M51.360 Other intvrt disc degen, lum rgn with discog back pain only Active Diagnosis [facility] Diagnosis: ICD-10-CM Z46.1 Encounter for fitting and adjustment of hearing aid [facility] Diagnosis: ICD-10-CM M54.59 Other low back pain Active Diagnosis [facility] Diagnosis: ICD-10-CM Z00.00 Encntr for general adult medical exam w/o abnormal findings Active Diagnosis [facility] Diagnosis: ICD-10-CM R55 Syncope and collapse Active Diagnosis [facility] Diagnosis: ICD-10-CM M54.50 Low back pain, unspecified Active Diagnosis [facility] Diagnosis: ICD-10-CM L98.9 Disorder of the skin and subcutaneous tissue, unspecified Active Diagnosis [facility] Diagnosis: ICD-10-CM H43.392 Other vitreous opacities, left eye Active Diagnosis [place] [facility] Diagnosis: ICD-10-CM M13.812 Other specified arthritis, left shoulder Active Diagnosis [facility] Diagnosis: ICD-10-CM H93.13 Tinnitus, bilateral Active Diagnosis [place] [facility] Diagnosis: ICD-10-CM H61.20 Impacted cerumen, unspecified ear Active Diagnosis [facility] Diagnosis: ICD-10-CM M25.512 Pain in left shoulder Active Diagnosis [facility] Diagnosis: ICD-10-CM R05.1 Acute cough Active Diagnosis [facility] Diagnosis: ICD-10-CM J01.80 Other acute sinusitis Active Diagnosis [facility] Diagnosis: ICD-10-CM M54.2 Cervicalgia Active Diagnosis [facility] Diagnosis: ICD-10-CM Z23 Encounter for immunization Active Diagnosis [facility] Diagnosis: ICD-10-CM R25.1 Tremor, unspecified Active Diagnosis [facility] Diagnosis: ICD-10-CM B86 Scabies Active Diagnosis [facility] Diagnosis: ICD-10-CM M79.10 Myalgia, unspecified site Active Diagnosis [place] [facility] Diagnosis: ICD-10-CM Z00.01 Encounter for general adult medical exam w abnormal findings Active Diagnosis [facility] Diagnosis: ICD-10-CM N39.0 Urinary tract infection, site not specified Active Diagnosis [place] [facility] Diagnosis: ICD-10-CM S60.941A Unsp superficial injury of left index finger, init encntr Active Diagnosis [facility] Diagnosis: ICD-10-CM M79.645 Pain in left finger(s) Active Diagnosis [facility] Diagnosis: ICD-10-CM S01.81XA Laceration w/o foreign body of oth part of head, init encntr Active Diagnosis [facility] Medications Combined list of outpatient medications from Department of Defense and Veterans Affairs facilities.Medications provided include 1) outpatient medications from the last 15 months, and 2) patient-reported medications. Medication Details Route Status Patient Instructions Prescription Expires Prescription Number Last Dispense Date Ordering Provider Order Date Order Qty Source ACETAMINOPH EN TAB TAKE 1000MG BY MOUTH TWICE A DAY NEEDED ORAL ACTIVE TIFFANIE DAVIS [address] [facility] ALENDRONATE 70MG TAB TAKE ONE TABLET BY MOUTH EVERY WEEK FOR OSTEOPOR OSIS - TAKE WITH 6-8 OZ OF PLAIN WATER 30 MIN BEFORE FIRST FOOD OR OTHER MEDICATI ON. REMAIN UPRIGHT. ORAL 06/15/2024 [id number] 4 Shanice BRENNAN R 2022 12 [facility] AMLODIPINE BESYLATE 2.5MG TAB TAKE ONE TABLET BY MOUTH ONCE A DAY FOR HIGH BLOOD PRESSURE ORAL 02/18/2025 [id number] 5 Shanice BRENNAN R 2023 90 [facility] CEPHALEXIN 500MG CAP TAKE 1 CAPSULE BY MOUTH EVERY 6 HOURS ORAL ACTIVE Veronica BASILIO 2023 [place] [facility] CYCLOBENZAP RINE HCL 10MG TAB TAKE ONE TABLET BY MOUTH TWICE DAILY NEEDED FOR MUSCLE SPASM MAY CAUSE DROWSINE SS. DO NOT DRINK ALCOHOL WHILE TAKING THIS MEDICATI ON. ORAL SUSPEND ED 10/18/2025 [id number] 5 Shanice BRENNAN R 2024 180 [facility] CYCLOBENZAP RINE HCL 10MG TAB TAKE ONE TABLET BY MOUTH TWICE DAILY NEEDED FOR MUSCLE SPASM MAY CAUSE DROWSINE SS. DO NOT DRINK ALCOHOL WHILE TAKING THIS MEDICATI ON. ORAL 04/01/2024 [id number] 4 Shanice BRENNAN R 2022 180 [facility] DICLOFENAC NA 1% GEL,TOP APPLY 4 GM TO AFFECTED AREA(S) FOUR TIMES A DAY NEEDED FOR OSTEOART HRITIS DO NOT EXCEED MORE THAN 16 GRAMS DAILY TO ANY LOWER EXTREMIT Y JOINT. NOT MORE THAN 8 GRAMS DAILY TO ANY UPPER EXTREMIT Y JOINT. MAX 32GM/DAY OVER ALL JOINTS. (MEASURE DOSE WITH RULER ATTACHED INSIDE BOX) TOPICA L 01/28/2024 [id number] 4 Shanice BRENNAN R 2022 300 [facility] INDOMETHACI N 25MG CAP TAKE ONE CAPSULE BY MOUTH TWICE A DAY FOR OSTEOART HRITIS (TAKE WITH FOOD) ORAL ACTIVE 06/21/2025 [id number] 5 Shanice BRENNAN R 2023 180 [facility] INDOMETHACI N 25MG CAP TAKE ONE CAPSULE BY MOUTH TWICE A DAY FOR OSTEOART HRITIS (TAKE WITH FOOD) ORAL DISCONT INUED 06/04/2024 [id number] 4 Shanice BRENNAN R [address] [place], [place] [address] LIDOCAINE 5% PATCH APPLY 1 PATCH TO SKIN SITE ONCE A DAY FOR LOCAL ANESTHES IA APPLY PATCH AND PRESS FIRMLY FOR 10-15 SECONDS. KEEP ON FOR 12 HOURS THEN REMOVE PATCH FOR 12 HOURS. TRANSD ERMAL ACTIVE 05/05/2025 [id number] 5 Shanice BRENNAN R 2023 90 [facility] LISINOPRIL 20MG TAB TAKE ONE TABLET BY MOUTH ONCE A DAY FOR HIGH BLOOD PRESSURE ORAL DISCONT INUED BY PROVIDE R 01/21/2025 [id number] 4 Shanice BRENNAN R [address] [place], [place] [address] MONTELUKAST NA 10MG TAB TAKE ONE TABLET BY MOUTH EVERY EVENING FOR ALLERGIC RHINITIS ORAL ACTIVE 08/01/2025 [id number] 5 Shanice BRENNAN R [address] [place], [place] [address] MONTELUKAST NA 10MG TAB TAKE ONE TABLET BY MOUTH EVERY EVENING FOR ASTHMA ORAL 04/01/2024 [id number] 4 Shanice BRENNAN R [address] [place], [place] [address]OC ONDANSETRON HCL 8MG TAB TAKE ONE-HALF TABLET BY MOUTH ONCE A DAY NEEDED FOR NAUSEA/V OMITING ORAL 01/22/2025 [id number] 4 Shanice BRENNAN R 2023 30 [facility] OTHER-ENTER NAME IN COMMENTS CAP/TAB TAKE ARNICA [place] 6 TABLETS SUBLINGU ALLY EVERY DAY NEEDED ACTIVE TIFFANIE DAVIS NA R [address] [facility] ROPINIROLE HCL 1MG TAB TAKE ONE TABLET BY MOUTH TWICE DAILY NEEDED FOR RESTLESS LEG SYNDROME ORAL ACTIVE 06/16/2025 [id number] 5 Shanice BRENNAN R [address] [place], [place] [address] ROPINIROLE HCL 1MG TAB TAKE ONE TABLET BY MOUTH TWICE A DAY FOR RESTLESS LEG SYNDROME ORAL 03/24/2024 [id number] 4 Shanice BRENNAN R [address] [place] [address] [facility]OC TRAMADOL HCL 50MG TAB TAKE 1 TABLET BY MOUTH THREE TIMES A DAY NEEDED FOR PAIN ORAL DISCONT INUED BY PROVIDE R 06/15/2025 [id number] 5 Shanice BRENNAN R 2024 90 [facility] VENLAFAXINE HCL 75MG 24HR CAP,SA TAKE ONE CAPSULE BY MOUTH ONCE A DAY FOR DEPRESSI ON WITH FOOD. DO NOT ABRUPTLY DISCONTI NUE MEDICATI ON. ORAL 02/21/2025 [id number] 5 Shanice BRENNAN R 2023 90 [facility] Allergies, Adverse Reactions, Alerts Combined list of allergies from Department of [facility] and [facility] facilities. It does not include entries that were removed or entered in error. Substance Category Reaction Severity Reaction type Status Date Reported Comments Source ALBUTEROL Propensity to adverse reactions to drug (finding) Sweating active 3 [facility] CODEINE Propensity to adverse reactions to drug (finding) active [address] [facility] CODEINE Propensity to adverse reactions to drug (finding) Eruption active 3 [facility] LISINOPRIL Propensity to adverse reactions to drug (finding) Cough MILD active 4 [facility] TRAMADOL Propensity to adverse reactions to drug (finding) Anxiety SEVERE active 5 [facility] Immunizations Combined list of available immunizations from the Department of [facility] and [facility] facilities. Immunization Series Date Given Administered By Site Reaction Lot Number CVX Code Drug Gallery Assistant Status Comments Source INFLUENZA, HIGH-DOSE, TRIVALENT, PF 2023 KELL PRECIADO LEFT DELTO ID [id number] 135 complet ed [facility] TDAP 2023 KELL PRECIADO LEFT DELTO ID [id number] 115 complet ed [facility] INFLUENZA VACCINE, QUADRIVALENT, ADJUVANTED [address] [facility] ZOSTER RECOMBINANT 2 2021 187 complet ed HISTORICA L INFORMATI ON - SOURCE UNSPECIFI ED, [facility] INFLUENZA, INJECTABLE, QUADRIVALENT, PRESERVATIVE FREE [address] [facility] ZOSTER RECOMBINANT 1 2020 187 complet ed HISTORICA L INFORMATI ON - SOURCE UNSPECIFI ED, [facility] INFLUENZA, INJECTABLE, QUADRIVALENT, PRESERVATIVE FREE [address] [facility] PNEUMOCOCCAL POLYSACCHARID E PPV23 2019 33 complet ed [employer], [id number], 02/24/[address] [facility] INFLUENZA, INJECTABLE, QUADRIVALENT, PRESERVATIVE FREE [address] [facility] INFLUENZA, INJECTABLE, QUADRIVALENT, PRESERVATIVE FREE [address] [facility] ZOSTER LIVE 2016 121 complet ed HISTORICA L INFORMATI ON - SOURCE UNSPECIFI ED, [facility] INFLUENZA, SPLIT VIRUS, QUADRIVALENT, PRESERVATIVE 2014 158 complet ed HISTORICA L INFORMATI ON - FROM OTHER REGISTRY, [facility] PNEUMOCOCCAL CONJUGATE PCV 13 2013 133 complet ed HISTORICA L INFORMATI ON - SOURCE UNSPECI ED, [facility] N TDAP 2013 115 complet ed HISTORICA L INFORMATI ON - SOURCE UNSPECIFI ED, [facility] N ZOSTER LIVE 2012 121 complet ed HISTORICA L INFORMATI ON - FROM OTHER REGISTRY, [facility] Results Combined list of recent chemistry, hematology and other laboratory results from Department of Defense and Veterans Affairs, ranging from 15 months to all on record, depending upon the facility. Order Name Results Value Reference Range Date Interpretation Specimen Comments Source TSH (MA-PB) THYROTROPIN [UNITS/VOLU ME] IN SERUM OR PLASMA 1.171 u[IU]/mL 0.47 - 5 12/27 Specimen Type: SERUM No comment entered. Ordering Provider: MARJ BRENNAN Report Released Date/Time: Dec 27, 2024 09:44 AM Reporting Lab: [place] [facility] [address] [place] [address] Performing Lab: [place] [facility] [address] [place] [address] [facility] HGA1C HEMOGLOBIN A1C/HEMOGLO BIN.TOTAL IN BLOOD 5.5 4.0 - 6.0 12/27 Specimen Type: BLOOD No comment entered. Ordering Provider: MARJ BRENNAN Report Released Date/Time: Dec 27, 2024 09:44 AM Reporting Lab: [place] [facility] [address] [place] [address] Performing Lab: [place] [facility] [address] [place] [address] [facility] VITAMIN D, 25-HYDROX Y 25-HYDROXYV ITAMIN D3 [MASS/VOLUM E] IN SERUM OR PLASMA 33.7 ng/mL 30 - 96 12/27 Specimen Type: SERUM No comment entered. Ordering Provider: MARJ BRENNAN Report Released Date/Time: Dec 27, 2024 09:44 AM Reporting Lab: [place] [facility] [address] [place] [facility] Performing Lab: [place] [facility] [address] [place] [address] [facility] CHOLESTER OL PANEL (PB) CHOLESTEROL [MASS/VOLUM E] IN SERUM OR PLASMA 198 mg/dL 0 - 200 12/27 Specimen Type: PLASMA Comment: LDL calculation invalid when Triglycerid e exceeds 250 mg/dl Ordering Provider: MARJ BRENNAN Report Released Date/Time: Dec 27, 2024 09:44 AM Reporting Lab: [place] [facility] [address] [place] [address] Performing Lab: [place] [facility] [address] [place] [address] [facility] CHOLESTER OL PANEL (PB) TRIGLYCERID E [MASS/VOLUM E] IN SERUM OR PLASMA 429 mg/dL 0 - 150 12/27 H Specimen Type: PLASMA Comment: LDL calculation invalid when Triglycerid e exceeds 250 mg/dl Ordering Provider: MARJ BRENNAN Report Released Date/Time: Dec 27, 2024 09:44 AM Reporting Lab: [place] [facility] [address] [place] [address] Performing Lab: [place] [facility] [address] [place] [address] [facility] CHOLESTER OL PANEL (PB) CHOLESTEROL IN LDL [MASS/VOLUM E] IN SERUM OR PLASMA BY CALCULATION commentm g/dL 12/27 Specimen Type: PLASMA Comment: LDL calculation invalid when Triglycerid e exceeds 250 mg/dl Ordering Provider: MARJ BRENNAN Report Released Date/Time: Dec 27, 2024 09:44 AM Reporting Lab: [place] [facility] [address] [place] [address] Performing Lab: [place] [facility] [address] [place] [address] [facility] CHOLESTER OL PANEL (PB) CHOLESTEROL IN HDL [MASS/VOLUM E] IN SERUM OR PLASMA 41.3 mg/dL 40 12/27 H Specimen Type: PLASMA Comment: LDL calculation invalid when Triglycerid e exceeds 250 mg/dl Ordering Provider: MARJ BRENNAN Report Released Date/Time: Dec 27, 2024 09:44 AM Reporting Lab: [place] [facility] [address] [place] [address] Performing Lab: [place] [facility] [address] [place] [address] [facility] CHOLESTER OL PANEL (PB) CHOLESTEROL IN HDL/CHOLEST BENSON.TOTAL [MASS RATIO] IN SERUM OR PLASMA 20.9 25 12/27 Specimen Type: PLASMA Comment: LDL calculation invalid when Triglycerid e exceeds 250 mg/dl Ordering Provider: MARJ BRENNAN Report Released Date/Time: Dec 27, 2024 09:44 AM Reporting Lab: [place] [facility] [address] [place] [address] Performing Lab: [place] [facility] [address] [place] [address] [facility] CHOLESTER OL PANEL (PB) CHOLESTEROL IN LDL [MASS/VOLUM E] IN SERUM OR PLASMA BY DIRECT ASSAY 119.7 mg/dL 0 - 99.9 12/27 H Specimen Type: PLASMA Comment: LDL calculation invalid when Triglycerid e exceeds 250 mg/dl Ordering Provider: BRENNAN,CAT HERINE R Report Released Date/Time: Dec 27, 2024 09:44 AM Reporting Lab: [place] [facility] [address] [place] [address] Performing Lab: [place] [facility] [address] [place] [address] [facility] URINALYSI S (STL-PB) COLOR OF URINE Light Yellow 12/27 Specimen Type: URINE No comment entered. Ordering Provider: MARJ BRENNAN R Report Released Date/Time: Dec 27, 2024 09:44 AM Reporting Lab: [place] [facility] [address] [place] [address] Performing Lab: [place] [facility] [address] [place] [address] [facility] URINALYSI S (STL-PB) BILIRUBIN.T OTAL [PRESENCE] IN URINE BY TEST STRIP NEGATIVE mg/dL 12/27 Specimen Type: URINE No comment entered. Ordering Provider: MARJ BRENNAN R Report Released Date/Time: Dec 27, 2024 09:44 AM Reporting Lab: [place] [facility] [address] [place] [address] Performing Lab: [place] [facility] [address] [place] [address] [facility] URINALYSI S (STL-PB) PH OF URINE BY TEST STRIP 6.5 5.0 - 8.0 12/27 Specimen Type: URINE No comment entered. Ordering Provider: MARJ BRENNAN R Report Released Date/Time: Dec 27, 2024 09:44 AM Reporting Lab: [place] [facility] [address] [place] [address] Performing Lab: [place] [facility] [address] [place] [address] [facility] URINALYSI S (STL-PB) APPEARANCE OF URINE CLEAR 12/27 Specimen Type: URINE No comment entered. Ordering Provider: MARJ BRENNAN R Report Released Date/Time: Dec 27, 2024 09:44 AM Reporting Lab: [place] [facility] [address] [place] [address] Performing Lab: [place] [facility] [address] [place] [address] [facility] URINALYSI S (STL-PB) NITRITE [PRESENCE] IN URINE BY TEST STRIP NEGATIVE mg/dL 12/27 Specimen Type: URINE No comment entered. Ordering Provider: MARJ BRENNAN Report Released Date/Time: Dec 27, 2024 09:44 AM Reporting Lab: [place] [facility] [address] [place] [address] Performing Lab: [place] [facility] [address] [place] [address] [facility] URINALYSI S (STL-PB) GLUCOSE [MASS/VOLUM E] IN URINE BY TEST STRIP NORMALmg /dL 12/27 Specimen Type: URINE No comment entered. Ordering Provider: MARJ BRENNAN R Report Released Date/Time: Dec 27, 2024 09:44 AM Reporting Lab: [place] [facility] [address] [place] [address] Performing Lab: [place] [facility] [address] [place] [address] [facility] URINALYSI S (STL-PB) PROTEIN [MASS/VOLUM E] IN URINE BY TEST STRIP NEGATIVE mg/dL 12/27 Specimen Type: URINE No comment entered. Ordering Provider: MARJ BRENNAN R Report Released Date/Time: Dec 27, 2024 09:44 AM Reporting Lab: [place] [facility] [address] [place] [address] Performing Lab: [place] [facility] [address] [place] [address] [facility] URINALYSI S (STL-PB) URN.UROBILI NOGEN NORMALmg /dL 12/27 Specimen Type: URINE No comment entered. Ordering Provider: MARJ BRENNAN R Report Released Date/Time: Dec 27, 2024 09:44 AM Reporting Lab: [place] [facility] [address] [place] [address] Performing Lab: [place] [facility] [address] [place] [address] [facility] URINALYSI S (STL-PB) HEMOGLOBIN [MASS/VOLUM E] IN URINE BY TEST STRIP NEGATIVE mg/dL 12/27 Specimen Type: URINE No comment entered. Ordering Provider: MARJ BRENNAN Report Released Date/Time: Dec 27, 2024 09:44 AM Reporting Lab: [place] [facility] [address] [place] [address] Performing Lab: [place] [facility] [address] [place] [address] [facility] URINALYSI S (STL-PB) KETONES [MASS/VOLUM E] IN URINE BY TEST STRIP NEGATIVE mg/dL 12/27 Specimen Type: URINE No comment entered. Ordering Provider: MARJ BRENNAN Report Released Date/Time: Dec 27, 2024 09:44 AM Reporting Lab: [place] [facility] [address] [place] [address] Performing Lab: [place] [facility] [address] [place] [id number] [facility] URINALYSI S (STL-PB) URN.LEUK.ES T. NEGATIVE 12/27 Specimen Type: URINE No comment entered. Ordering Provider: MARJ BRENNAN Report Released Date/Time: Dec 27, 2024 09:44 AM Reporting Lab: [place] [facility] [address] [place] [id number] Performing Lab: [place] [facility] [address] [place] [address] [facility] URINALYSI S (STL-PB) SPECIFIC GRAVITY OF URINE 1.017 1.005 - 1.029 12/27 Specimen Type: URINE No comment entered. Ordering Provider: MARJ BRENNAN R Report Released Date/Time: Dec 27, 2024 09:44 AM Reporting Lab: [place] [facility] [address] [place] [address] Performing Lab: [place] [facility] [address] [place] [address] [facility] COMPREHEN SIVE METABOLIC PANEL CREATININE [MASS/VOLUM E] IN SERUM OR PLASMA 0.65 mg/dL 0.6 - 1.1 12/27 Specimen Type: PLASMA Comment: LDL calculation invalid when Triglycerid e exceeds 250 mg/dl Ordering Provider: MARJ BRENNAN Report Released Date/Time: Dec 27, 2024 09:44 AM Reporting Lab: [place] [facility] [address] [place] [address] Performing Lab: [place] [facility] [address] [place] [address] [facility] COMPREHEN SIVE METABOLIC PANEL UREA NITROGEN [MASS/VOLUM E] IN SERUM OR PLASMA 9 mg/dL 9 - 25 12/27 Specimen Type: PLASMA Comment: LDL calculation invalid when Triglycerid e exceeds 250 mg/dl Ordering Provider: MARJ BRENNAN Report Released Date/Time: Dec 27, 2024 09:44 AM Reporting Lab: [place] [facility] [address] [place] [address] Performing Lab: [place] [facility] [address] [place] [address] [facility] COMPREHEN SIVE METABOLIC PANEL GLUCOSE [MASS/VOLUM E] IN SERUM OR PLASMA 86 mg/dL 72 - 99 12/27 Specimen Type: PLASMA Comment: LDL calculation invalid when Triglycerid e exceeds 250 mg/dl Ordering Provider: MARJ BRENNAN Report Released Date/Time: Dec 27, 2024 09:44 AM Reporting Lab: [place] [facility] [address] [place] [address] Performing Lab: [place] [facility] [address] [place] [address] [facility] COMPREHEN SIVE METABOLIC PANEL SODIUM [MOLES/VOLU ME] IN SERUM OR PLASMA 143 meq/L 136 - 145 12/27 Specimen Type: PLASMA Comment: LDL calculation invalid when Triglycerid e exceeds 250 mg/dl Ordering Provider: MARJ BRENNAN Report Released Date/Time: Dec 27, 2024 09:44 AM Reporting Lab: [place] [facility] [address] [place] [address] Performing Lab: [place] [facility] [address] [place] [address] [facility] COMPREHEN SIVE METABOLIC PANEL POTASSIUM [MOLES/VOLU ME] IN SERUM OR PLASMA 3.9 meq/L 3.5 - 5 12/27 Specimen Type: PLASMA Comment: LDL calculation invalid when Triglycerid e exceeds 250 mg/dl Ordering Provider: MARJ BRENNAN Report Released Date/Time: Dec 27, 2024 09:44 AM Reporting Lab: [place] [facility] [address] [place] [address] Performing Lab: [place] [facility] [address] [place] [address] [facility] COMPREHEN SIVE METABOLIC PANEL CHLORIDE [MOLES/VOLU ME] IN SERUM OR PLASMA 107 meq/L 98 - 107 12/27 Specimen Type: PLASMA Comment: LDL calculation invalid when Triglycerid e exceeds 250 mg/dl Ordering Provider: MARJ BRENNAN Report Released Date/Time: Dec 27, 2024 09:44 AM Reporting Lab: [place] [facility] [address] [place] [address] Performing Lab: [place] [facility] [address] [place] [address] [facility] COMPREHEN SIVE METABOLIC PANEL CARBON DIOXIDE, TOTAL [MOLES/VOLU ME] IN SERUM OR PLASMA 23 meq/L 22 - 31 12/27 Specimen Type: PLASMA Comment: LDL calculation invalid when Triglycerid e exceeds 250 mg/dl Ordering Provider: MARJ BRENNAN Report Released Date/Time: Dec 27, 2024 09:44 AM Reporting Lab: [place] [facility] [address] [place] [address] Performing Lab: [place] [facility] [address] [place] [address] [facility] COMPREHEN SIVE METABOLIC PANEL CALCIUM [MASS/VOLUM E] IN SERUM OR PLASMA 10.2 mg/dL 8.4 - 10.4 12/27 Specimen Type: PLASMA Comment: LDL calculation invalid when Triglycerid e exceeds 250 mg/dl Ordering Provider: BRENNAN,CAT HERINE R Report Released Date/Time: Dec 27, 2024 09:44 AM Reporting Lab: [place] [facility] [address] [place] [address] Performing Lab: [place] [facility] [address] [place] [address] [facility] COMPREHEN SIVE METABOLIC PANEL PROTEIN [MASS/VOLUM E] IN SERUM OR PLASMA 7.3 g/dL 6 - 8.6 12/27 Specimen Type: PLASMA Comment: LDL calculation invalid when Triglycerid e exceeds 250 mg/dl Ordering Provider: MARJ BRENNAN R Report Released Date/Time: Dec 27, 2024 09:44 AM Reporting Lab: [place] [facility] [address] [place] [address] Performing Lab: [place] [facility] [address] [place] [address] [facility] COMPREHEN SIVE METABOLIC PANEL ALBUMIN [MASS/VOLUM E] IN SERUM OR PLASMA 4.6 g/dL 3.4 - 5 12/27 Specimen Type: PLASMA Comment: LDL calculation invalid when Triglycerid e exceeds 250 mg/dl Ordering Provider: MARJ BRENNAN R Report Released Date/Time: Dec 27, 2024 09:44 AM Reporting Lab: [place] [facility] [address] [place] [address] Performing Lab: [place] [facility] [address] [place] [address] [facility] COMPREHEN SIVE METABOLIC PANEL BILIRUBIN.T OTAL [MASS/VOLUM E] IN SERUM OR PLASMA 0.6 mg/dL 0.2 - 1.2 12/27 Specimen Type: PLASMA Comment: LDL calculation invalid when Triglycerid e exceeds 250 mg/dl Ordering Provider: MARJ BRENNAN R Report Released Date/Time: Dec 27, 2024 09:44 AM Reporting Lab: [place] [facility] [address] [place] [address] Performing Lab: [place] [facility] [address] [place] [address] [facility] COMPREHEN SIVE METABOLIC PANEL ALKALINE PHOSPHATASE [ENZYMATIC ACTIVITY/VO LUME] IN SERUM OR PLASMA 105 U/L 40 - 150 12/27 Specimen Type: PLASMA Comment: LDL calculation invalid when Triglycerid e exceeds 250 mg/dl Ordering Provider: MARJ BRENNAN Report Released Date/Time: Dec 27, 2024 09:44 AM Reporting Lab: [place] [facility] [address] [place] [address] Performing Lab: [place] [facility] [address] [place] [address] [facility] COMPREHEN SIVE METABOLIC PANEL ASPARTATE AMINOTRANSF ERASE [ENZYMATIC ACTIVITY/VO LUME] IN SERUM OR PLASMA 22 U/L 5 - 34 12/27 Specimen Type: PLASMA Comment: LDL calculation invalid when Triglycerid e exceeds 250 mg/dl Ordering Provider: MARJ BRENNAN Report Released Date/Time: Dec 27, 2024 09:44 AM Reporting Lab: [place] [facility] [address] [place] [address] Performing Lab: [place] [facility] [address] [place] [address] [facility] COMPREHEN SIVE METABOLIC PANEL ALANINE AMINOTRANSF ERASE [ENZYMATIC ACTIVITY/VO LUME] IN SERUM OR PLASMA 15 U/L 8 - 40 12/27 Specimen Type: PLASMA Comment: LDL calculation invalid when Triglycerid e exceeds 250 mg/dl Ordering Provider: MARJ BRENNAN Report Released Date/Time: Dec 27, 2024 09:44 AM Reporting Lab: [place] [facility] [address] [place] [address] Performing Lab: [place] [facility] [address] [place] [address] [facility] COMPREHEN SIVE METABOLIC PANEL GLOMERULAR FILTRATION RATE/1.73 SQ M.PREDICTED [VOLUME RATE/AREA] IN SERUM, PLASMA OR BLOOD BY CREATININE- BASED FORMULA (CKD-EPI 2020) 93 12/27 Specimen Type: PLASMA Comment: LDL calculation invalid when Triglycerid e exceeds 250 mg/dl Ordering Provider: MARJ BRENNAN Report Released Date/Time: Dec 27, 2024 09:44 AM Reporting Lab: [place] [facility] [address] [place] [address] Performing Lab: [place] [facility] [address] [place] [address] [facility] CBC LEUKOCYTES [#/VOLUME] IN BLOOD BY AUTOMATED COUNT 9.1 10*3/uL 3.6 - 11.2 12/27 Specimen Type: BLOOD No comment entered. Ordering Provider: MARJ BRENNAN R Report Released Date/Time: Dec 27, 2024 09:44 AM Reporting Lab: [place] [facility] [address] [place] [address] Performing Lab: [place] [facility] [address] [place] [address] [facility] CBC ERYTHROCYTE S [#/VOLUME] IN BLOOD BY AUTOMATED COUNT 5.17 10*6/uL 3.60 - 5.00 12/27 H Specimen Type: BLOOD No comment entered. Ordering Provider: MARJ BRENNAN R Report Released Date/Time: Dec 27, 2024 09:44 AM Reporting Lab: [place] [facility] [address] [place] [address] Performing Lab: [place] [facility] [address] [place] [address] [facility] CBC HEMOGLOBIN [MASS/VOLUM E] IN BLOOD 16.2 g/dL 11.0 - 14.9 12/27 H Specimen Type: BLOOD No comment entered. Ordering Provider: MARJ BRENNAN R Report Released Date/Time: Dec 27, 2024 09:44 AM Reporting Lab: [place] [facility] [address] [place] [address] Performing Lab: [place] [facility] [address] [place] [address] [facility] CBC HEMATOCRIT [VOLUME FRACTION] OF BLOOD 47.3 32.6 - 43.4 12/27 H Specimen Type: BLOOD No comment entered. Ordering Provider: MARJ BRENNAN R Report Released Date/Time: Dec 27, 2024 09:44 AM Reporting Lab: [place] [facility] [address] [place] [address] Performing Lab: [place] [facility] [address] [place] [address] [facility] CBC MCV [ENTITIC VOLUME] BY AUTOMATED COUNT 91.5 fL 80.0 - 100.0 12/27 Specimen Type: BLOOD No comment entered. Ordering Provider: MARJ BRENNAN R Report Released Date/Time: Dec 27, 2024 09:44 AM Reporting Lab: [place] [facility] [address] [place] [phone] Performing Lab: [place] [facility] [address] [place] [phone] [facility] CBC MCH [ENTITIC MASS] BY AUTOMATED COUNT 31.3 pg 27.0 - 34.0 12/27 Specimen Type: BLOOD No comment entered. Ordering Provider: MARJ BRENNAN R Report Released Date/Time: Dec 27, 2024 09:44 AM Reporting Lab: [place] [facility] [address] [place] [phone] Performing Lab: [place] [facility] [address] [place] [address] [facility] CBC MCHC [MASS/VOLUM E] BY AUTOMATED COUNT 34.2 g/dL 33.0 - 36.0 12/27 Specimen Type: BLOOD No comment entered. Ordering Provider: MARJ BRENNAN R Report Released Date/Time: Dec 27, 2024 09:44 AM Reporting Lab: [place] [facility] [address] [place] [phone] Performing Lab: [place] [facility] [address] [place] [phone] [facility] CBC PLATELETS [#/VOLUME] IN BLOOD BY AUTOMATED COUNT 325 10*3/uL 150 - 400 12/27 Specimen Type: BLOOD No comment entered. Ordering Provider: MARJ BRENNAN R Report Released Date/Time: Dec 27, 2024 09:44 AM Reporting Lab: [place] [facility] [address] [place] [phone] Performing Lab: [place] [facility] [address] [place] [phone] [facility] CBC PLATELET MEAN VOLUME [ENTITIC VOLUME] IN BLOOD BY AUTOMATED COUNT 9.3 fL 7.5 - 11.2 12/27 Specimen Type: BLOOD No comment entered. Ordering Provider: MARJ BRENNAN Report Released Date/Time: Dec 27, 2024 09:44 AM Reporting Lab: [place] [facility] [address] [place] [address] Performing Lab: [place] [facility] [address] [place] [address] [facility] CBC ERYTHROCYTE DISTRIBUTIO N WIDTH [RATIO] BY AUTOMATED COUNT 11.9 11.8 - 15.1 12/27 Specimen Type: BLOOD No comment entered. Ordering Provider: MARJ BRENNAN Report Released Date/Time: Dec 27, 2024 09:44 AM Reporting Lab: [place] [facility] [address] [place] [address] Performing Lab: [place] [facility] [address] [place] [address] [facility] CBC LYMPHOCYTES /100 LEUKOCYTES IN BLOOD BY AUTOMATED COUNT 25.7 12/27 Specimen Type: BLOOD No comment entered. Ordering Provider: MARJ BRENNAN Report Released Date/Time: Dec 27, 2024 09:44 AM Reporting Lab: [place] [facility] [address] [place] [address] Performing Lab: [place] [facility] [address] [place] [address] [facility] CBC MONOCYTES/1 00 LEUKOCYTES IN BLOOD BY AUTOMATED COUNT 10.7 12/27 Specimen Type: BLOOD No comment entered. Ordering Provider: MARJ BRENNAN R Report Released Date/Time: Dec 27, 2024 09:44 AM Reporting Lab: [place] [facility] [address] [place] [address] Performing Lab: [place] [facility] [address] [place] [address] [facility] CBC NEUTROPHILS /100 LEUKOCYTES IN BLOOD BY AUTOMATED COUNT 55.7 12/27 Specimen Type: BLOOD No comment entered. Ordering Provider: MARJ BRENNAN Report Released Date/Time: Dec 27, 2024 09:44 AM Reporting Lab: [place] [facility] [address] [place] [address] Performing Lab: [place] [facility] [address] [place] [address] [facility] CBC EOSINOPHILS /100 LEUKOCYTES IN BLOOD BY AUTOMATED COUNT 4.9 12/27 Specimen Type: BLOOD No comment entered. Ordering Provider: MARJ BRENNAN Report Released Date/Time: Dec 27, 2024 09:44 AM Reporting Lab: [place] [facility] [address] [place] [address] Performing Lab: [place] [facility] [address] [place] [address] [facility] CBC BASOPHILS/1 00 LEUKOCYTES IN BLOOD BY AUTOMATED COUNT 2.1 12/27 Specimen Type: BLOOD No comment entered. Ordering Provider: MARJ BRENNAN Report Released Date/Time: Dec 27, 2024 09:44 AM Reporting Lab: [place] [facility] [address] [place] [address] Performing Lab: [place] [facility] [address] [place] [address] [facility] CBC LYMPHOCYTES [#/VOLUME] IN BLOOD BY AUTOMATED COUNT 2.33 10*3/uL 0.77 - 4.50 12/27 Specimen Type: BLOOD No comment entered. Ordering Provider: MARJ BRENNAN R Report Released Date/Time: Dec 27, 2024 09:44 AM Reporting Lab: [place] [facility] [address] [place] [address] Performing Lab: [place] [facility] [address] [place] [address] [facility] CBC MONOCYTES [#/VOLUME] IN BLOOD BY AUTOMATED COUNT 0.97 10*3/uL 0.19 - 0.8 12/27 H Specimen Type: BLOOD No comment entered. Ordering Provider: MARJ BRENNAN R Report Released Date/Time: Dec 27, 2024 09:44 AM Reporting Lab: [place] [facility] [address] [place] [address] Performing Lab: [place] [facility] [address] [place] [address] [facility] CBC NEUTROPHILS [#/VOLUME] IN BLOOD BY AUTOMATED COUNT 5.04 10*3/uL 2.10 - 8.00 12/27 Specimen Type: BLOOD No comment entered. Ordering Provider: MARJ BRENNAN Report Released Date/Time: Dec 27, 2024 09:44 AM Reporting Lab: [place] [facility] [address] [place] [address] Performing Lab: [place] [facility] [address] [place] [address] [facility] CBC EOSINOPHILS [#/VOLUME] IN BLOOD BY AUTOMATED COUNT 0.44 10*3/uL 0.00 - 0.60 12/27 Specimen Type: BLOOD No comment entered. Ordering Provider: MARJ BRENNAN Report Released Date/Time: Dec 27, 2024 09:44 AM Reporting Lab: [place] [facility] [address] [place] [phone] Performing Lab: [place] [facility] [address] [place] [phone] [facility] CBC BASOPHILS [#/VOLUME] IN BLOOD BY AUTOMATED COUNT 0.19 10*3/uL 0.00 - 0.20 12/27 Specimen Type: BLOOD No comment entered. Ordering Provider: MARJ BRENNAN R Report Released Date/Time: Dec 27, 2024 09:44 AM Reporting Lab: [place] [facility] [address] [place] [phone] Performing Lab: [place] [facility] [address] [place] [address] [facility] CBC IMMATURE GRANULOCYTE S/100 LEUKOCYTES IN BLOOD BY AUTOMATED COUNT 0.9 12/27 Specimen Type: BLOOD No comment entered. Ordering Provider: MARJ BRENNAN R Report Released Date/Time: Dec 27, 2024 09:44 AM Reporting Lab: [place] [facility] [address] [place] [address] Performing Lab: [place] [facility] [address] [place] [address] [place] [address] [place] [facility] CBC IMMATURE GRANULOCYTE S [#/VOLUME] IN BLOOD BY AUTOMATED COUNT 0.08 10*3/uL 0.00 - 0.05 12/27 H Specimen Type: BLOOD No comment entered. Ordering Provider: MARJ BRENNAN Report Released Date/Time: Dec 27, 2024 09:44 AM Reporting Lab: [place] [facility] [address] [place] [address] Performing Lab: [place] [facility] [address] [place] [address] [facility] DRUG SCREEN URINE-inh ouse (PB) METHADONE [PRESENCE] IN URINE Negative 12/13 Specimen Type: URINE No comment entered. Ordering Provider: MARJ BRENNAN Report Released Date/Time: Dec 13, 2024 10:48 AM Reporting Lab: [place] [facility] [address] [place] [address] Performing Lab: [place] [facility] [address] [place] [address] [facility] DRUG SCREEN URINE-inh ouse (PB) OPIATES [PRESENCE] IN URINE BY SCREEN METHOD Negative 12/13 Specimen Type: URINE No comment entered. Ordering Provider: MARJ BRENNAN Report Released Date/Time: Dec 13, 2024 10:48 AM Reporting Lab: [place] [facility] [address] [place] [phone] Performing Lab: [place] [facility] [address] [place] [address] [facility] DRUG SCREEN URINE-inh ouse (PB) COCAINE [PRESENCE] IN URINE Negative 12/13 Specimen Type: URINE No comment entered. Ordering Provider: MARJ BRENNAN Report Released Date/Time: Dec 13, 2024 10:48 AM Reporting Lab: [place] [facility] [address] [place] [phone] Performing Lab: [place] [facility] [address] [place] [address] [facility] DRUG SCREEN URINE-inh ouse (PB) TETRAHYDROC ANNABINOL [PRESENCE] IN URINE BY SCREEN METHOD Negative 12/13 Specimen Type: URINE No comment entered. Ordering Provider: MARJ BRENNAN Report Released Date/Time: Dec 13, 2024 10:48 AM Reporting Lab: [place] [facility] [address] [place] [phone] Performing Lab: [place] [facility] [address] [place] [address] [facility] DRUG SCREEN URINE-inh ouse (PB) BENZODIAZEP GARIMA [PRESENCE] IN URINE BY SCREEN METHOD Negative 12/13 Specimen Type: URINE No comment entered. Ordering Provider: MARJ BRENNAN Report Released Date/Time: Dec 13, 2024 10:48 AM Reporting Lab: [place] [facility] [address] [place] [address] Performing Lab: [place] [facility] [address] [place] [address] [facility] DRUG SCREEN URINE-inh ouse (PB) AMPHETAMINE [PRESENCE] IN URINE BY SCREEN METHOD Negative 12/13 Specimen Type: URINE No comment entered. Ordering Provider: MARJ BRENNAN Report Released Date/Time: Dec 13, 2024 10:48 AM Reporting Lab: [place] [facility] [address] [place] [phone] Performing Lab: [place] [facility] [address] [place] [address] [facility] DRUG SCREEN URINE-inh ouse (PB) CREATININE [MASS/VOLUM E] IN URINE 94.26 mg/dL 12/13 Specimen Type: URINE No comment entered. Ordering Provider: MARJ BRENNAN Report Released Date/Time: Dec 13, 2024 10:48 AM Reporting Lab: [place] [facility] [address] [place] [phone] Performing Lab: [place] [facility] [address] [place] [address] [facility] DRUG SCREEN URINE-inh ouse (PB) OXYCODONE CUTOFF [MASS/VOLUM E] IN URINE FOR SCREEN METHOD Negative 12/13 Specimen Type: URINE No comment entered. Ordering Provider: MARJ BRENNAN Report Released Date/Time: Dec 13, 2024 10:48 AM Reporting Lab: [place] [facility] [address] [place] [id number] Performing Lab: [place] [facility] [address] [place] [id number] [facility] DRUG SCREEN URINE-inh ouse (PB) BUPRENORPHI NE [PRESENCE] IN URINE Negative ng/mL 12/13 Specimen Type: URINE No comment entered. Ordering Provider: MARJ BRENNAN Report Released Date/Time: Dec 13, 2024 10:48 AM Reporting Lab: [place] [facility] [address] [place] [id number] Performing Lab: [place] [facility] [address] [place] [address] [facility] DRUG SCREEN URINE-inh ouse (PB) ETHANOL [MASS/VOLUM E] IN URINE <10mg/dL 0 - 20 12/13 L Specimen Type: URINE No comment entered. Ordering Provider: MARJ BRENNAN Report Released Date/Time: Dec 13, 2024 10:48 AM Reporting Lab: [place] [facility] [address] [place] [id number] Performing Lab: [place] [facility] [address] [place] [address] [facility] DRUG SCREEN URINE-inh ouse (PB) FENTANYL [PRESENCE] IN URINE Negative ng/mL 12/13 Specimen Type: URINE No comment entered. Ordering Provider: MARJ BRENNAN Report Released Date/Time: Dec 13, 2024 10:48 AM Reporting Lab: [place] [facility] [address] [place] [id number] Performing Lab: [place] [facility] [address] [place] [address] [facility] BASIC METABOLIC PANEL CREATININE [MASS/VOLUM E] IN SERUM OR PLASMA 0.80 mg/dL 0.6 - 1.1 05/09 Specimen Type: PLASMA No comment entered. Ordering Provider: MARJ BRENNAN Report Released Date/Time: May 09, 2024 01:54 PM Reporting Lab: [place] [facility] [address] [place] [address] Performing Lab: [place] [facility] [address] [place] [address] [facility] BASIC METABOLIC PANEL UREA NITROGEN [MASS/VOLUM E] IN SERUM OR PLASMA 17 mg/dL 9 - 25 05/09 Specimen Type: PLASMA No comment entered. Ordering Provider: MARJ BRENNAN Report Released Date/Time: May 09, 2024 01:54 PM Reporting Lab: [place] [facility] [address] [place] [address] Performing Lab: [place] [facility] [address] [place] [address] [facility] BASIC METABOLIC PANEL GLUCOSE [MASS/VOLUM E] IN SERUM OR PLASMA 112 mg/dL 72 - 99 05/09 H Specimen Type: PLASMA No comment entered. Ordering Provider: MARJ BRENNAN R Report Released Date/Time: May 09, 2024 01:54 PM Reporting Lab: [place] [facility] [address] [place] [address] Performing Lab: [place] [facility] [address] [place] [address] [facility] BASIC METABOLIC PANEL SODIUM [MOLES/VOLU ME] IN SERUM OR PLASMA 141 meq/L 136 - 145 05/09 Specimen Type: PLASMA No comment entered. Ordering Provider: MARJ BRENNAN R Report Released Date/Time: May 09, 2024 01:54 PM Reporting Lab: [place] [facility] [address] [place] [address] Performing Lab: [place] [facility] [address] [place] [address] [facility] BASIC METABOLIC PANEL POTASSIUM [MOLES/VOLU ME] IN SERUM OR PLASMA 3.8 meq/L 3.5 - 5 05/09 Specimen Type: PLASMA No comment entered. Ordering Provider: MARJ BRENNAN R Report Released Date/Time: May 09, 2024 01:54 PM Reporting Lab: [place] [facility] [address] [place] [address] Performing Lab: [place] [facility] [address] [place] [address] [facility] BASIC METABOLIC PANEL CHLORIDE [MOLES/VOLU ME] IN SERUM OR PLASMA 108 meq/L 98 - 107 05/09 H Specimen Type: PLASMA No comment entered. Ordering Provider: MARJ BRENNAN Report Released Date/Time: May 09, 2024 01:54 PM Reporting Lab: [place] [facility] [address] [place] [address] Performing Lab: [place] [facility] [address] [place] [address] [facility] BASIC METABOLIC PANEL CARBON DIOXIDE, TOTAL [MOLES/VOLU ME] IN SERUM OR PLASMA 22 meq/L 22 - 31 05/09 Specimen Type: PLASMA No comment entered. Ordering Provider: MARJ BRENNAN Report Released Date/Time: May 09, 2024 01:54 PM Reporting Lab: [place] [facility] [address] [place] [address] Performing Lab: [place] [facility] [address] [place] [address] [facility] BASIC METABOLIC PANEL CALCIUM [MASS/VOLUM E] IN SERUM OR PLASMA 9.7 mg/dL 8.4 - 10.4 05/09 Specimen Type: PLASMA No comment entered. Ordering Provider: MARJ BRENNAN Report Released Date/Time: May 09, 2024 01:54 PM Reporting Lab: [place] [facility] [address] [place] [address] Performing Lab: [place] [facility] [address] [place] [address] [facility] BASIC METABOLIC PANEL GLOMERULAR FILTRATION RATE/1.73 SQ M.PREDICTED [VOLUME RATE/AREA] IN SERUM, PLASMA OR BLOOD BY CREATININE- BASED FORMULA (CKD-EPI 2020) 79 05/09 Specimen Type: PLASMA No comment entered. Ordering Provider: MARJ BRENNAN Report Released Date/Time: May 09, 2024 01:54 PM Reporting Lab: [place] [facility] [address] [place] [address] Performing Lab: [place] [facility] [address] [place] [address] [facility] COVID-19 SCREENING (CEPHEID) SARS-COV-2 (COVID-19) RNA [PRESENCE] IN RESPIRATORY SYSTEM SPECIMEN BY LAMIN WITH PROBE DETECTION Negative 03/27 Specimen Type: NASOPHARYNX Comment: A Negative result does not preclude infection with SARS-CoV-2 and should not be used as the sole basis for treatment or other patient management decisions. Positive results do not rule out bacterial infection or co-infectio n with other viruses. All results must be combined with clinical observation s, patient history and epidemiolog ical information for final interpretat ion. A POSITIVE result is considered a positive test for COVID-19. This indicates that RNA from SARS-CoV-2 (formerly 2019-nCoV) was detected, and the patient is infected with the virus and presumed to be contagious. If requested by public health authority, specimen will be sent for additional testing. Ordering Provider: MARJ BRENNAN Report Released Date/Time: Mar 27, 2024 08:48 AM Reporting Lab: [place] [facility] [address] [place] [facility] [address] Performing Lab: [place] [facility] [address] [place] [address] [facility] COVID-19 SCREENING (CEPHEID) INFLUENZA VIRUS A RNA [PRESENCE] IN NASOPHARYNX BY LAMIN WITH PROBE DETECTION Negative 03/27 Specimen Type: NASOPHARYNX Comment: A Negative result does not preclude infection with SARS-CoV-2 and should not be used as the sole basis for treatment or other patient management decisions. Positive results do not rule out bacterial infection or co-infectio n with other viruses. All results must be combined with clinical observation s, patient history and epidemiolog ical information for final interpretat ion. A POSITIVE result is considered a positive test for COVID-19. This indicates that RNA from SARS-CoV-2 (formerly 2019-nCoV) was detected, and the patient is infected with the virus and presumed to be contagious. If requested by public health authority, specimen will be sent for additional testing. Ordering Provider: MARJ BRENNAN R Report Released Date/Time: Mar 27, 2024 08:48 AM Reporting Lab: [place] [facility] [address] [place] [address] Performing Lab: [place] [facility] [address] [place] [address] [facility] COVID-19 SCREENING (CEPHEID) INFLUENZA VIRUS B RNA [PRESENCE] IN NASOPHARYNX BY LAMIN WITH PROBE DETECTION Negative 03/27 Specimen Type: NASOPHARYNX Comment: A Negative result does not preclude infection with SARS-CoV-2 and should not be used as the sole basis for treatment or other patient management decisions. Positive results do not rule out bacterial infection or co-infectio n with other viruses. All results must be combined with clinical observation s, patient history and epidemiolog ical information for final interpretat ion. A POSITIVE result is considered a positive test for COVID-19. This indicates that RNA from SARS-CoV-2 (formerly 2019-nCoV) was detected, and the patient is infected with the virus and presumed to be contagious. If requested by public health authority, specimen will be sent for additional testing. Ordering Provider: MARJ BRENNAN R Report Released Date/Time: Mar 27, 2024 08:48 AM Reporting Lab: [place] [facility] [address] [place] [facility] Performing Lab: [place] [facility] [address] [place] [address] [facility] COVID-19 SCREENING (CEPHEID) RSV (Cepheid) Negative 03/27 Specimen Type: NASOPHARYNX Comment: A Negative result does not preclude infection with SARS-CoV-2 and should not be used as the sole basis for treatment or other patient management decisions. Positive results do not rule out bacterial infection or co-infectio n with other viruses. All results must be combined with clinical observation s, patient history and epidemiolog ical information for final interpretat ion. A POSITIVE result is considered a positive test for COVID-19. This indicates that RNA from SARS-CoV-2 (formerly 2019-nCoV) was detected, and the patient is infected with the virus and presumed to be contagious. If requested by public health authority, specimen will be sent for additional testing. Ordering Provider: MARJ BRENNAN Report Released Date/Time: Mar 27, 2024 08:48 AM Reporting Lab: [place] [facility] [address] [place] [address] Performing Lab: [place] [facility] [address] [place] [address] [place] [facility] Vital Signs Combined list of inpatient and outpatient Vital Signs from Department of Defense and Veterans Affairs, ranging from 12 months to all on record, depending upon the facility. Vital Sign Value Date Comments Source SYSTOLIC BLOOD PRESSURE 124 02/14/2025 09:39:06 [place] [facility] DIASTOLIC BLOOD PRESSURE 80 02/14/2025 09:39:06 [place] [facility] PULSE OXIMETRY 97 % 02/14/2025 09:39:06 [facility] [place] [facility] WEIGHT 192.4 02/14/2025 09:39:06 [place] [facility] BMI 28 kg/m2 02/14/2025 09:39:06 [place] [facility] TEMPERATURE 97.7 02/14/2025 09:39:06 [place] [facility] PULSE 91 02/14/2025 09:39:06 [place] [facility] RESPIRATION 18 02/14/2025 09:39:06 [place] [facility] SYSTOLIC BLOOD PRESSURE 155 01/31/2025 09:40:00 [place] [facility] DIASTOLIC BLOOD PRESSURE 101 01/31/2025 09:40:00 [place] [facility] TEMPERATURE 98 01/31/2025 09:40:00 [place] [facility] PULSE 74 01/31/2025 09:40:00 [place] [facility] SYSTOLIC BLOOD PRESSURE 126 01/08/2025 14:48:28 [place] [facility] DIASTOLIC BLOOD PRESSURE 88 01/08/2025 14:48:28 [place] [facility] PULSE OXIMETRY 96 01/08/2025 14:48:28 [facility] [place] [facility] WEIGHT 196.5 01/08/2025 14:48:28 [place] [facility] BMI 29 kg/m2 01/08/2025 14:48:28 [place] [facility] TEMPERATURE 98.2 01/08/2025 14:48:28 [place] [facility] PULSE 88 01/08/2025 14:48:28 [facility] RESPIRATION 18 01/08/2025 14:48:28 [facility] SYSTOLIC BLOOD PRESSURE 118 12/28/2024 10:09:00 [facility] DIASTOLIC BLOOD PRESSURE 70 12/28/2024 10:09:00 [facility] PULSE OXIMETRY 98 12/28/2024 10:09:00 [facility] WEIGHT 193.4 12/28/2024 10:09:00 [facility] BMI 29 kg/m2 12/28/2024 10:09:00 [facility] TEMPERATURE 97.5 12/28/2024 10:09:00 [facility] PULSE 93 12/28/2024 10:09:00 [facility] RESPIRATION 18 12/28/2024 10:09:00 [facility] SYSTOLIC BLOOD PRESSURE 144 12/27/2024 09:40:00 [facility] DIASTOLIC BLOOD PRESSURE 91 12/27/2024 09:40:00 [facility] TEMPERATURE 98.2 12/27/2024 09:40:00 [facility] PULSE 79 12/27/2024 09:40:00 [facility] Encounters Combined list of: 1) Encounters from Department of Veterans Affairs facilities going backup to the last 18 months, not all VA inpatient encounters are included; 2) Encounters from the Department of Defense facilities going backup to 280 months. Location Location Details Encounter Type Encounter Number Reason For Visit Attending Provider ADM Date DC Date Status Dis[facility] [place] [facility] [place] [id number] Diagnos is: ICD-10- CM M99.01 Segment al and somatic dysfunc tion of cervica l region MAGDIEL RICH E 09/14 [facility] Outpatient Encounter [id number] 09/23 [facility] [place] [facility] [facility] [place] [id number] Diagnos is: ICD-10- CM M99.01 Segment al and somatic dysfunc tion of cervica l region MAGDIEL RICH 09/28 [facility] OFF/OP EST DECEMBER X REQ PHY/QHP [id number] Diagnos is: ICD-10- CM S01.81X A Lacerat ion w/o foreign body of oth part of head, init encntr Douglas PRECIADO 09/28 [facility] [place] 3[facility]4 [place] [id number] Diagnos is: ICD-10- CM M99.01 Segment al and somatic dysfunc tion of cervica l region MAGDIEL RICH 10/05 [facility] [place] [facility] Outpatient Encounter [id number] ZANDRA BRIGGS 10/11 [place] [facility] Outpatient Encounter [id number] 10/12 [facility] [place] 3[facility]4 [place] [id number] Diagnos is: ICD-10- CM M99.01 Segment al and somatic dysfunc tion of cervica l region MAGDIEL RICH 10/20 [facility] Outpatient Encounter [id number] 10/22 [facility] [place] [facility] [place] [id number] Diagnos is: ICD-10- CM M99.01 Segment al and somatic dysfunc tion of cervica l region MAGDIEL RICH 10/26 [facility] Outpatient Encounter [id number] [facility] [place] [facility] Outpatient Encounter [id number] 10/31 [place] [facility] Outpatient Encounter [id number] 11/01 [facility] [place] 3[facility]4 [place] [id number] Diagnos is: ICD-10- CM M99.01 Segment al and somatic dysfunc tion of cervica l region MAGDIEL RICH E 11/01 [facility] REQ PHY/QHP [id number] Diagnos is: ICD-10- CM M79.645 Pain in left finger( s) Douglas PRECIADO 11/08 [facility] OFFICE O/P EST LOW 20 MIN [id number] Diagnos is: ICD-10- CM S60.941 A Unsp superfi cial injury of left index finger, init encntr OTILIO CHASE G 11/08 [facility] [place] 3[place]4 [place] [id number] Diagnos is: ICD-10- CM M99.01 Segment al and somatic dysfunc tion of cervica l region MAGDIEL RICH E 11/08 [facility] [place] 3-4 [place] [id number] Diagnos is: ICD-10- CM M99.01 Segment al and somatic dysfunc tion of cervica l region MAGDIEL RICH E 11/15 [facility] Outpatient Encounter [id number] 11/21 [facility] Outpatient Encounter [id number] 11/22 [facility] [place] [facility] [place] [id number] [id number] Diagnos is: ICD-10- CM M99.01 Segment al and somatic dysfunc tion of cervica l region MAGDIEL RICH E 11/22 [facility] Outpatient Encounter [id number] 11/30 [facility] [place] 3-4 [place] [id number] [id number] Diagnos is: ICD-10- CM M99.01 Segment al and somatic dysfunc tion of cervica l region MAGDIEL RICH 12/14 [facility] [place] [facility] Outpatient Encounter [id number] 12/26 [place] [facility] Outpatient Encounter [id number] 01/04 [facility] [place] 3-4 [place] [id number] Diagnos is: ICD-10- CM M99.01 Segment al and somatic dysfunc tion of cervica l region MAGDIEL RICH 01/04 [facility] [place] [facility] Outpatient Encounter [id number] DIAN GREWAL 01/05 [place] [facility] [place] [facility] OFFICE O/P EST SF 10 MIN [id number] Diagnos is: ICD-10- CM N39.0 Urinary tract infecti on, site not specifi ed LUPE BASILIO A 01/05 [place] [facility] En[facility] [id number] 01/11 [facility] Outpatient Encounter [id number] 01/12 [facility] [place] 3[place]4 [place] [id number] [id number] Diagnos is: ICD-10- CM M99.01 Segment al and somatic dysfunc tion of cervica l region MAGDIEL RICH E 01/18 [facility] Encounter [id number] Diagnos is: ICD-10- CM Z00.01 Encount er for general adult medical exam w mookie coronel s GONZALO BRENNAN THERINE R 01/20 [facility] [place] [facility] Outpatient Encounter [id number] Diagnos is: ICD-10- CM M79.10 Myalgia , unspeci fied site ESTUARDO ALVARADO M 01/24 [place] [facility] [place] [facility] Outpatient Encounter [id number] MEGAN CASTILLO A 01/24 [place] [facility] Outpatient Encounter [id number] 02/16 [facility] [id number] [id number] Diagnos is: ICD-10- CM M13.812 Other specifi ed arthrit is, left DEBBIE Pereira A 02/20 [facility] Outpatient Encounter [id number] 03/03 [facility] [place] 1-2 [place] [id number] Diagnos is: ICD-10- CM M99.01 Segment al and somatic dysfunc tion of cervica l region MAGDIEL RICH 03/08 [facility] Outpatient Encounter [id number] 03/09 [facility] [place] [facility] [place] [id number] [id number] Diagnos is: ICD-10- CM M99.01 Segment al and somatic dysfunc tion of cervica l region MAGDIEL RICH 03/15 [facility] HOT OR COLD PACKS THERAPY [id number] Diagnos is: ICD-10- CM M13.812 Other specifi ed arthrit is, left shouldveronica KERNDEBBIE HOLAS A 03/22 [facility] OFF/OP EST DECEMBER X REQ PHY/QHP [id number] Diagnos is: ICD-10- CM R05.1 Acute cough Douglas PRECIADO 03/27 [facility] [place] [facility] [place]4 [place] [id number] [id number] Diagnos is: ICD-10- CM M99.01 Segment al and [facility]DIEL RICH 03/29 [place] [facility] HOT OR COLD PACKS THERAPY [id number] Diagnos is: ICD-10- CM M13.812 Other specifi ed arthrit is, left shouldveronica r CONCHADEBBIE HOLAS A 03/29 [facility] Outpatient Encounter [id number] 04/03 [facility] Outpatient Encounter [id number] 04/05 [facility]OP EST MAY X REQ PHY/QHP [id number] [id number] Diagnos is: ICD-10- CM B86 Edmundobisarabjit Douglas PRECIADO MIRA ALANIS 04/05 [facility] Outpatient Encounter [id number] 04/18 [facility] [place] 3-4 [place] [id number] Diagnos is: ICD-10- CM M99.01 Segment al and somatic dysfunc tion of cervica l region HILARIOMAGDIEL KENDELL E 05/03 [facility] Outpatient Encounter [id number] TAWANNA DEJESUS RIL L 05/08 [facility] Outpatient Encounter [id number] GONZALO BRENNAN R 05/08 [facility] OFFICE O/P EST MOD 30 MIN [id number] [id number] Diagnos is: ICD-10- CM R25.1 Tremor, unspeci fied GONZALO BRENNAN THERINE R 05/08 [facility] [place] 3-4 [place] [id number] Diagnos is: ICD-10- CM M99.01 Segment al and somatic dysfunc tion of cervica l region MAGDIEL RICH KENDELL E 05/09 [facility] [place] [facility] [facility]4 [place] [id number] Diagnos is: ICD-10- CM M99.01 Segment al and somatic dysfunc tion of cervica l region HILARIOMAGDIEL E 05/10 [place] [facility] [place] [facility] HOT OR COLD PACKS THERAPY [id number] [id number] Diagnos is: ICD-10- CM M13.812 Other specifi ed arthrit is, left shoulde adonis CONCHADEBBIE HOLAS A 05/10 [place] [facility] THERAPEUTI C EXERCISES [id number] Diagnos is: ICD-10- CM M13.812 Other specifi ed arthrit is, left shoulde r CONCHADEBBIE HOLAS A 05/17 [facility] [place] [facility] [place] 3-4 [place] [id number] Diagnos is: ICD-10- CM M99.01 Segment al and somatic dysfunc tion of cervica l region MAGDIEL RICH E 05/18 [facility] Outpatient Encounter [id number] 05/19 [facility] Outpatient Encounter [id number] 05/24 [facility] Outpatient Encounter [id number] 05/30 [facility] [place] [facility]4 [place] [id number] Diagnos is: ICD-10- CM M99.01 Segment al and somatic dysfunc tion of cervica l region MAGDIEL RICH E 05/31 [place] [facility] [place] [facility] HOT OR COLD PACKS THERAPY [id number] Diagnos is: ICD-10- CM M13.812 Other specifi ed arthrit is, left shoulde r CONCHADEBBIE HOLAS A 05/31 [place] [facility] [place] [facility] [place] 3-4 [place] [id number] Diagnos is: ICD-10- CM M99.01 Segment al and somatic dysfunc tion of cervica l region MAGDIEL RICH 06/06 [facility] COLD PACKS THERAPY [id number] [id number] Diagnos is: ICD-10- CM M13.812 Other specifi ed arthrit is, left shoulde r CONCHADEBBIE HOLAS A 06/07 [facility] [place] [facility] [place] [id number] [id number] Diagnos is: ICD-10- CM M99.01 Segment al and somatic dysfunc tion of cervica l region MAGDIEL RICH 06/14 [facility] DECEM[facility] X REQ PHY/QHP [id number] [id number] Diagnos is: ICD-10- CM Z23 Encount er for immuniz ation Douglas PRECIADO 06/14 [facility] Outpatient Encounter [id number] 06/15 [facility] INSJ W/O NJX 1 OR 2 [facility] [id number] [id number] Diagnos is: ICD-10- CM M25.512 Pain in left shoulde r DEBBIE KERN HOLAS A 06/16 [facility] Outpatient Encounter [id number] 06/20 [facility] 3-4 REGIONS [id number] Diagnos is: ICD-10- CM M99.01 Segment al and somatic dysfunc tion of cervica l region MAGDIEL RICH 06/21 [facility] 3-4 REGIONS [id number] Diagnos is: ICD-10- CM M54.2 Cervica lgia [facility] 1 OR 2 [facility] [id number] Diagnos is: ICD-10- CM M13.812 Other specifi ed arthrit is, left natashaveronica r DEBBIE KERN HOLAS A 07/17 [facility] Outpatient Encounter [id number] 07/17 [facility] Outpatient Encounter [id number] 07/18 [facility] DEC[facility] X REQ PHY/QHP [id number] Diagnos is: ICD-10- CM J01.80 Other acute sinusit is Douglas PRECIADO 07/19 [facility] 3-4 REGIONS [id number] Diagnos is: ICD-10- CM M99.01 Segment al and somatic dysfunc tion of cervica l region MAGDIEL RICH 07/19 [facility] HOT OR COLD PACKS THERAPY [id number] Diagnos is: ICD-10- CM M13.812 Other specifi ed arthrit is, left shoulde r CONCHADEBBIE HOLAS A 07/31 [facility] Outpatient Encounter [id number] 07/31 [facility] CHIROPRACT MANJ 3-4 REGIONS [id number] [id number] Diagnos is: ICD-10- CM M99.01 Segment al and somatic dysfunc tion of cervica l region MAGDIEL RICH 08/01 [facility] HOT OR COLD PACKS THERAPY 94920-7.65 [id number] Diagnos is: ICD-10- CM M13.812 Other specifi ed arthrit is, left shoulde r CONCHA,DEBBIE HOLAS A 08/14 [facility] CHIROPRACT MANJ 3-4 REGIONS [id number] [id number] Diagnos is: ICD-10- CM M99.01 Segment al and somatic dysfunc tion of cervica l region MAGDIEL RICH 08/16 [facility] Outpatient Encounter [id number] GONZALO BRENNAN 08/28 [facility] OFF/OP EST DECEMBER X REQ PHY/QHP [id number] [id number] Diagnos is: ICD-10- CM R05.1 Acute cough Douglas PRECIADO 08/28 [facility] Outpatient Encounter [id number] 08/31 [facility] CHIROPRACT MANJ 3-4 REGIONS [id number] [id number] Diagnos is: ICD-10- CM M99.01 Segment al and somatic dysfunc tion of cervica l region MAGDIEL RICH 08/31 [facility] Outpatient Encounter [id number] 09/06 [facility] CHIROPRACT MANJ 3-4 REGIONS [id number] [id number] Diagnos is: ICD-10- CM M99.01 Segment al and somatic dysfunc tion of cervica l region MAGDIEL RICH E 09/06 [facility] OFF/OP EST MAY X REQ PHY/QHP [id number] [id number] Diagnos is: ICD-10- CM R05.1 Acute cough Douglas PRECIADO 09/06 [facility] Outpatient Encounter [id number] [id number] 09/12 [facility] 3-4 REGIONS [id number] [id number] Diagnos is: ICD-10- CM M99.01 Segment al and somatic dysfunc tion of cervica l region MAGDIEL RICH 09/13 [facility] Outpatient Encounter [id number] 09/27 [facility] MAN[facility] 3-4 REGIONS [id number] [id number] Diagnos is: ICD-10- CM M99.01 Segment al and somatic dysfunc tion of cervica l region MAGDIEL RICH 10/04 [facility] Outpatient Encounter [id number] [id number] 10/10 [facility] [place] [facility] Outpatient Encounter [id number] [id number] 10/16 [place] [facility] Outpatient Encounter [id number] [id number] 10/18 [facility] OFFICE O/P EST MOD 30 MIN [id number] [id number] Diagnos is: ICD-10- CM M25.512 Pain in left shoulde r GONZALO BRENNAN THERINE R 10/31 [facility] Outpatient Encounter [id number] [id number] GONZALO BRENNAN THERINE R 11/01 [facility] OFF/OP EST DECEMBER X REQ PHY/QHP [id number] [id number] Diagnos is: ICD-10- CM H61.20 Impacte d cerumen , unspeci fied ear SANDYSLOANE R 11/01 [facility] CHIROPRACT MANJ 3-4 REGIONS [id number] [id number] Diagnos is: ICD-10- CM M99.01 Segment al and somatic dysfunc tion of cervica l region HILARIOMAGDIEL KENDELL E 11/01 [facility] Outpatient Encounter [id number] [id number] 11/06 [facility] TELEHEALTH FACILITY FEE [id number] [id number] Diagnos is: ICD-10- CM H93.13 Tinnitu s, bilater al GRAVES,LUCRETIA TREASURE A 11/07 [facility] [place] [facility] HEARING AID XM&SLCTN BINAURL 52560-2.65 [id number] Diagnos is: ICD-10- CM H93.13 Tinnitu s, bilater al GRAVES,LUCRETIA TREASURE A 11/07 [place] [facility] 3-4 REGIONS [id number] [id number] Diagnos is: ICD-10- CM M99.01 Segment al and somatic dysfunc tion of cervica l region MAGDIEL RICH E 11/07 [facility] Outpatient Encounter [id number] [id number] 11/10 [facility] HOT OR COLD PACKS THERAPY [id number] [id number] Diagnos is: ICD-10- CM M13.812 Other specifi ed arthrit is, left shoulde r DEBBIE KERN A 11/10 [facility] Out[facility] Encounter [id number] [id number] 11/10 [facility] [place] [facility] Outpatient Encounter [id number] [id number] 11/13 [place] [facility] Outpatient Encounter [id number] [id number] 11/13 [facility] CHIROPRACT MANJ 3-4 REGIONS [id number] [id number] Diagnos is: ICD-10- CM M99.01 Segment al and somatic dysfunc tion of cervica l region MAGDIEL RICH LAS E 11/14 [facility] [place] [facility] COMPRE OPH EXAM NEW PT 1/> 19852-1.65 [id number] Diagnos is: ICD-10- CM H43.392 Other vitreou s opaciti es, left eye ROBERSON,MEREDITH LA S 11/23 [place] [facility] MANJ 3-4 REGIONS [id number] [id number] Diagnos is: ICD-10- CM M99.01 Segment al and somatic dysfunc tion of cervica l region MAGDIEL RICH LAS E 11/29 [facility] Outpatient Encounter [id number] [id number] 12/01 [facility] OFF/OP EST DECEMBER X REQ PHY/QHP [id number] [id number] Diagnos is: ICD-10- CM L98.9 Disorde r of the skin and subcuta neous tissue, unspeci Douglas Padgett 12/01 [facility] TELEHEALTH FACILITY FEE [id number] [id number] Diagnos is: ICD-10- CM Z46.1 Encount er for fitting and adjustm ent of hearing aid LUCRETIA FERNANDO A 12/07 [facility] [place] [facility] CONFORMITY EVALUATION [id number] [id number] Diagnos is: ICD-10- CM Z46.1 Encount er for fitting and adjustm ent of hearing aid LUCRETIA FERNANDO A 12/07 [facility] CHIROPRACT MANJ 3-4 REGIONS [id number] [id number] Diagnos is: ICD-10- CM M99.01 Segment al and somatic dysfunc tion of cervica l region MAGDIEL RICH 12/13 [facility] Outpatient Encounter [id number] [id number] GONZALO BRENNAN R 12/13 [facility] OFF/OP EST DECEMBER X REQ PHY/QHP [id number] [id number] Diagnos is: ICD-10- CM M54.50 Low back pain, unspeci Douglas Padgett 12/13 [facility] Outpatient Encounter [id number] [id number] 12/13 [facility] Outpatient Encounter [id number] [id number] 12/18 [facility] Outpatient Encounter [id number] [id number] 12/22 [facility] Outpatient Encounter [id number] [id number] TAWANNA DEJESUS RIL L 12/25 [facility] [place] [facility] Outpatient Encounter [id number] [id number] 12/25 [place] [facility] OFFICE O/P EST MOD 30 MIN [id number] [id number] Diagnos is: ICD-10- CM R55 Syncope and collaps e GONZALO BRENNANINE R 12/25 [facility] CHIROPRACT MANJ 3-4 REGIONS [id number] [id number] Diagnos is: ICD-10- CM M99.01 Segment al and somatic dysfunc tion of cervica l region MAGDIEL RICH E 12/27 [facility] Outpatient Encounter [id number] [id number] Diagnos is: ICD-10- CM Z00.00 Encntr for general adult medical exam w/o abnorma l finding s GONZALO BRENNAN R 12/28 [facility] Outpatient Encounter [id number] [id number] 01/02 [facility] Outpatient Encounter [id number] [id number] 01/04 [facility] Outpatient Encounter [id number] [id number] 01/05 [facility] Outpatient Encounter [id number] [id number] GONZALO BRENNAN R 01/08 [facility] OFF/OP EST DECEMBER X REQ PHY/QHP [id number] [id number] Diagnos is: ICD-10- CM M54.59 Other low back pain Douglas PRECIADO 01/08 [facility] TELEHEALTH FACILITY FEE [id number] [id number] Diagnos is: ICD-10- CM Z46.1 Encount er for fitting and adjustm ent of hearing aid LUCRETIA FERNANDO 01/08 [facility] [id number] [id number] Diagnos is: ICD-10- CM Z46.1 Encount er for fitting and adjustm ent of hearing aid LUCRETIA FERNANDO 01/08 [facility] Outpatient Encounter [id number] [id number] 01/11 [facility] Outpatient Encounter [id number] [id number] 01/11 [facility] Outpatient Encounter [id number] [id number] 01/15 [facility] Outpatient Encounter [id number] [id number] 01/16 [facility] Outpatient Encounter [id number] [id number] 01/18 [facility] CHIROPRACT MANJ 3-4 REGIONS [id number] [id number] Diagnos is: ICD-10- CM M99.01 Segment al and somatic dysfunc tion of cervica l region MAGDIEL RICH 01/31 [facility] Outpatient Encounter [id number] [id number] GONZALO BRENNAN 01/31 [facility] OFFICE O/P EST LOW 20 MIN [id number] [id number] Diagnos is: ICD-10- CM M51.360 Other intvrt disc degen, lum rgn with discog back pain only GONZALO BRENNANINE R 01/31 [facility] Outpatient Encounter [id number] [id number] DARRELLGONZALO MIO M 02/01 [facility] Outpatient Encounter [id number] [id number] 02/08 [facility] Outpatient Encounter [id number] [id number] 02/12 [facility] Outpatient Encounter [id number] [id number] Douglas PRECIADO 02/12 [facility] OFFICE O/P EST LOW 20 MIN [id number] [id number] Diagnos is: ICD-10- CM B35.1 Tinea unguium GONZALO BRENNANINE R 02/14 [facility] CHIROPRACT MANJ 3-4 REGIONS [id number] [id number] Diagnos is: ICD-10- CM M99.01 Segment al and somatic dysfunc tion of cervica l region MAGDIEL RICH 02/14 [facility] Outpatient Encounter [id number] Mary PRECIADO 02/14 [facility] Outpatient Encounter [id number] [id number] LEE MATTA 02/14 [facility] Outpatient Encounter [id number] [id number] 02/19 [facility] Outpatient Encounter [id number] [id number] 02/27 [facility] Outpatient Encounter [id number] GONZALO BRENNAN 03/06 [facility] CHIROPRACT MANJ 3-4 REGIONS [id number] Diagnos is: ICD-10- CM M99.01 Segment al and somatic dysfunc tion of cervica l region HILARIOMAGDIEL RDZ E 03/06 [facility] CHIROPRACT MANJ 3-4 REGIONS [id number] [id number] Diagnos is: ICD-10- CM M99.01 Segment al and somatic dysfunc tion of cervica l region MAGDIEL RICH 03/07 [facility] Social History Combined list of available smoking, tobacco, and other social history from Department of Defense and Veterans Affairs facilities. Social History Type Response Date Comment Sourc e Tobacco smoking status WAIS VA-TOBACCO NEVER USED CIGARETTES 02/14/2025 [facility] History of tobacco use VA-TOBACCO NEVER USED OTHER TYPE 02/14/2025 [facility] History of tobacco use VA-TOBACCO FORMER USER 01/21/2024 [facility] History of tobacco use VA-TOBACCO FORMER USER 01/27/2023 [facility] History of tobacco use VA-TOBACCO FORMER USER 02/25/[address] [facility] History of tobacco use VA-TOBACCO FORMER USER 04/09/[address] [facility] History of tobacco use VA-TOBACCO FORMER USER 06/25/[address] [facility] History of tobacco use VA-TOBACCO QUIT 1 5 YRS OR MORE 08/01/[address] [facility] History of tobacco use VA-TOBACCO FORMER USER 06/17/[address] [facility] History of tobacco use FORMER TOBACCO US ER 7Y OR GREATER 02/05/[address] [facility] Plan of Care List of future care activities from Department of Veterans Affairs facilities. Additional future care activities may be listed in the Assessment and Plan section. Date/Time Care Activity Care Activity Detail Facili ty 03/21/2025 AMBULATORY - MEDICINE AMBULATORY - MEDICI NE [facility] Advance Directives List of completed, amended, or rescinded Advance Directives on record at [facility] facilities. An actual copy of the Directive is not included. Date Advance Directive Provider Source 05/14/2022 ADVANCE DIRECTIVE BERTHA NAZARIO [facility] 02/05/2017 ADVANCE DIRECTIVE DISCUSSION PEG SORENSEN [facility]
[2025-03-12 06:24] VITALS: BP 155/93; PULSE 63; RESP 17; TEMP 36.8; O2SAT 97; BMI 29.2
--- OUTSIDE RECORDS SUMMARY | 2025-03-12 06:28 | XMS_ITS | Clinical Summary ---
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 Active tiotropium bromide (SPIRIVA RESPIMAT INHALATION) Take 2 Puffs by inhalation 2 times daily. Active pyridoxine HCl, vitamin B6, (VITAMIN B-6 ORAL) Take 1 Tablet by mouth daily. Active cholecalciferol , vitamin D3, (VITAMIN D3 ORAL) Take 3 Caplet by mouth daily at bedtime. Active alendronate sodium (ALENDRONATE ORAL) Take 1 Tablet by mouth every 7 days. Active diclofenac sodium (VOLTAREN) 1 % gel Apply 2 Grams to affected area 4 times daily. Active cyclobenzaprine HCl (CYCLOBENZAPRIN E ORAL) Take 0.5 Tablets by mouth daily at bedtime. PRN Active montelukast sodium (SINGULAIR ORAL) Take 1 Tablet by mouth daily at bedtime. Active LIDOCAINE TOPICAL Apply 1 Patch to affected area 1 time daily as needed. Active acetaminophen (TYLENOL) 500 mg tablet Take 650 mg by mouth every 8 hours as needed. Active artificial tears,hypromell ose, 0.3 % gel Administer 1 Drop in both eyes 2 times daily as needed for Discomfort. Active ropinirole HCl (REQUIP ORAL) Take 1 Tablet by mouth daily at bedtime. Active acetaminophen (TYLENOL) 500 mg tablet Take 2 Tablets (1,000 mg) by mouth every 8 hours. 90 Tablet 04/17/2023 11:32 AM CDT 3 Active docusate sodium (COLACE) 100 mg capsule Take 1 Capsule (100 mg) by mouth 2 times daily. 60 Capsule 04/17/2023 11:32 AM CDT 3 Active indomethacin (INDOCIN) 25 mg capsule 25 mg. 3 Active amLODIPine (NORVASC) 2.5 mg tablet Take 2.5 mg by mouth. 4 Active ondansetron (ZOFRAN) 8 mg Tablet Take 4 mg by mouth. 4 Active venlafaxine (EFFEXOR XR) 75 mg Extended Release 24 hour capsule Take 75 mg by mouth. 4 Active Active Problems Problem Noted Date Diagnosed Date Primary osteoarthritis of right knee 04/13/2023 Preoperative general physical examination 2022 COPD (chronic obstructive pulmonary disease) Lmgks-3-wyfeomuqeew deficiency 04/13/2023 Obstructive sleep apnea 04/13/2023 History of tobacco use 04/13/2023 Dyslipidemia 04/13/2023 Osteoporosis 04/13/2023 History of MRSA infection 04/13/2023 Restless leg syndrome 04/13/2023 Muscle spasm 04/13/2023 Encounters Date Type Department Care Team Description 01/17/2025 External Device Data [facility] ABSTRACTION Provider, Abstract 01/16/2025 External Device Data [facility] ABSTRACTION Provider, Abstract from Last 3 Months Family History Medical History Relation Name Comments Heart Disease Father [place] and passed at 67yo Stroke Father Heart Disease Sister [place] in 60's unk nown treatment Relation Name Status Comments Father Mother Sister Alive Social History Tobacco Use Types Packs/Day Years Used Date Smoking Tobacco: Former Cigarettes 3 25 1 970 - 1994 Cigars Smokeless Tobacco: Never Tobacco Cessation:Counseling Given: Not Answered Alcohol Use Standard Drinks/Week Comments Yes 0 (1 standard drink = 0.6 oz pur e alcohol) occassionally Feeling Safe Answer Date Recorded Are you in a relationship wi th someone who hurts you emotionally and/or physically? No 04/16/2023 Food Insecurity Answer Date Recorded Patient needs follow up regarding: Not on file 11/04/2023 Transportation Needs Answer Date Record ed Patient needs follow up regarding: Not on file 11/04/2023 Housing Stability Answer Date Recorded Patient needs follow up regarding: Not on file 11/04/2023 Utility Needs Answer Date Recorded Patient needs follow up regarding: Not on file 11/04/2023 Comments No Sex and Gender Information Value Date Recorded Sex Assigned at Not on file Legal Sex Female 4:38 PM CDT Gender Identity Not on file Sexual Orientation Not on file Last Filed Vital Signs Vital Sign Reading Time Taken Comments Blood Pressure 120/80 10/02/2024 10:46 AM TRANSFER AND PUMPHOUSE OPERATOR Pulse 89 10/02/2024 10:46 AM TRANSFER AND PUMPHOUSE OPERATOR Temperature 37.2 C (99 F) 04/17/2023 3:00 PM CDT Respiratory Rate 16 04/17/2023 3:00 PM CDT Oxygen Saturation 97% 10/02/2024 10:46 AM TRANSFER AND PUMPHOUSE OPERATOR Inhaled Oxygen Concentration - - Weight 81.2 kg (179 lb) 10/02/2024 10:46 AM TRANSFER AND PUMPHOUSE OPERATOR Height 172.7 cm (5' 8 ) 10/02/2024 10:46 AM TRANSFER AND PUMPHOUSE OPERATOR Body Mass Index 27.22 10/02/2024 10:46 AM TRANSFER AND PUMPHOUSE OPERATOR Plan of Treatment Health Maintenance Due Date Last Done Comments BREAST CANCER SCREENING 1992 COLORECTAL SCREENING 1997 Colorectal Cancer Screening 1997 FIT-DNA Q 3 years 1997 FIT/FOBT Q 1 year 1997 Flex Sig/CT Colonography Q 5 years 1997 RSV VACCINE (60+ or ) (1 - Risk 60-74 years 1-dose series) 2012 OSTEOPOROSIS SCREENING 2017 INFLUENZA VACCINE (#1) 2025 , 07/29/2022, 05/20/2021, Additional history exists DTAP/TDAP/TD VACCINES (3 - T d or Tdap) 11/08/2033 11/09/2023, 07/03/2014 PNEUMOCOCCAL VACCINE 50+ YEARS Completed 03/25/2020 , 07/03/2014 ZOSTER VACCINE Completed 10/10/2021, 03/30, 05/14/2017 Medical Devices Implanted Type Area Radiology Technician Device Identifier Shelf Expiration Date Model / Serial / Lot Cement [employer] Mv Zirconium Dioxide [employer] Lf Disp [id number] - [id number] Implanted:Qty: 1 on 04/16/2023 by Janice Persaud MD at [facility] Cement Right: Knee [employer] [id number] 08/29/2027 [id number] / / [id number] Cement Palac[employer] Mv Zirconium Dioxide St Lf Disp [id number] - [id number] Implanted:Qty: 1 on 04/16/2023 by Janice Persaud MD at [facility] Cement Right: Knee [employer] [id number] 06/29/2027 [id number] / / [id number] Comp Fem Attune Ps Sz 7 Rt Cmntd 1504-10-207 - [id number] Implanted:Qty: 1 on 04/16/2023 by Janice Persaud MD at [facility] Knee Right: Knee [employer] [id number] 01/27/2033 [id number] / / [id number] Comp Tib Attune Fb Cmnt Sz6 1506-70-006 - [id number] Implanted:Qty: 1 on 04/16/2023 by Janice Persaud MD at [facility] Knee Right: Knee [employer] [id number] 01/27/2033 [id number] / / [id number] Insert Attune Fb Ps Sz7 8mm 1516-40-708 - [id number] Implanted:Qty: 1 on 04/16/2023 by Janice Persaud MD at [facility] Knee Right: Knee [employer] [id number] 10/28/2027 [id number] / / [id number] Insurance RX WILKS PLANS (INTERNAL) [facility] [employer] RX WILKS PLANS (INTERNAL) [employer] [facility]ESS [facility] [place] [address] [facility] [employer] * Guarantor: [facility] Account Type Relation to Patient Date of Phone Billing Address Corporate Other DEFAULT ADDRESS [address] [employer] * Guarantor: [facility] Account Type Relation to Patient Date of Phone Billing Address Corporate Other DEFAULT ADDRESS [address] [employer] Advance Directives For more information, please contact: [phone] * Full Code (Latest Code Status on File) Date Activated Date Inactivated Comments 04/16/2023 12:20 PM 04/17/2023 5:10 PM * Full Code Date Activated Date Inactivated Comments 04/16/2023 8:37 AM 04/16/2023 12:20 PM
[2025-03-12 06:31] VITALS: BP 155/93; PULSE 62; O2SAT 97
--- NOTE | 2025-03-12 06:31 | XRR_ITS ---
PROCEDURE INFORMATION: Exam: XR Right Wrist Exam date and time: 03/12/2025 6:43 AM Age: 74 years old Clinical indication: Injury or trauma; Fall; Blunt trauma (contusions or hematomas); Right; Patient was pulled down to the ground by her dog while out walking. Deformity to RT wrist. TECHNIQUE: Imaging protocol: Radiologic exam of the right wrist. Views: 3 or more views. COMPARISON: No relevant prior studies available. FINDINGS: Bones/joints: Mildly displaced fracture of the distal radius extending to articular surface. Degenerative changes of the 1st carpometacarpal joint. No acute osseous or joint abnormality. Soft tissues: Normal. XR/XR wrist RT min 3V* [id number] IMPRESSION: No acute traumatic injury.
--- NOTE | 2025-03-12 06:31 | XRR_ITS ---
PROCEDURE INFORMATION: Exam: XR Left Knee Exam date and time: 03/12/2025 6:38 AM Age: 74 years old Clinical indication: Injury or trauma; Fall; Blunt trauma; Patient pulled to the ground by her dog while out walking. Contusion with multiple small lacs to anterior aspect of left knee. TECHNIQUE: Imaging protocol: Radiologic exam of the left knee. Views: 4 or more views. COMPARISON: No relevant prior studies available. FINDINGS: Bones/joints: Normal. No fracture or dislocation. No acute osseous, joint, or soft tissue abnormality. Soft tissues: Normal. XR/XR knee RT 4V [id number] IMPRESSION: No acute findings.
--- NOTE | 2025-03-12 06:40 | W.ED.FALL ---
HPI - Fall General: Chief Complaint: Fall Stated Complaint: fall lac to head, leg, and R wrist injury Time Seen by Provider: 03/12/25 06:27 History of Present Illness: 74-year-old female presents emergency room after a fall. She hit her forehead she has abrasions to her left knee she also has right wrist pain. She has abrasions to the left knee and R shoulder. She also has a small laceration over her forehead. Tetanus is up-to-date after she had a injury a year ago. No loss conscious no neck pain. Associated symptoms-after fall: Denies abdominal pain, chest pain or neck pain Related Data Home Medications ?Medication ?Instructions ?Recorded ?Confirmed acetaminophen 325 mg tablet 325 mg PO QID PRN Pain 07/14/23 03/08/25 alendronate 70 mg tablet 70 mg PO Q7D 07/14/23 03/08/25 cholecalciferol (vitamin D3) 25 25 mcg PO DAILY 07/14/23 03/08/25 mcg (1,000 unit) tablet (Vitamin D3) cyclobenzaprine 10 mg tablet 10 mg PO BID PRN Spasms 07/14/23 03/08/25 diclofenac sodium 1 % topical gel 4 g topical QID PRN osteoarthritis 07/14/23 03/08/25 indomethacin 25 mg capsule 25 mg PO BID 07/14/23 03/08/25 meclizine 25 mg tablet 25 mg PO TID PRN Dizziness 07/14/23 03/08/25 montelukast 10 mg tablet 10 mg PO QPM 07/14/23 03/08/25 pyridoxine (vitamin B6) 100 mg 50 mg PO DAILY 07/14/23 03/08/25 tablet (Vitamin B-6) ropinirole 1 mg tablet 1 mg PO BID 07/14/23 03/08/25 lisinopril 20 mg tablet 20 mg PO DAILY 11/13/24 03/08/25 ondansetron 8 mg disintegrating 8 mg PO Q8H PRN Nausea And Vomiting 11/13/24 03/08/25 tablet Previous Rx's ?Medication ?Instructions ?Recorded hydrocodone 5 mg-acetaminophen 325 1 tab PO Q6H PRN pain #10 tabs 03/12/25 mg tablet mupirocin 2 % topical ointment 1 applic topical BID #22 grams 03/12/25 (Centany) Allergies Allergy/AdvReac Type Severity Reaction Status Date / Time acetaminophen (From Vicodin) Allergy Severe ADR-Shakine Verified 03/08/25 11:26 ss hydrocodone (From Vicodin) Allergy Severe ADR-Shakine Verified 03/08/25 11:26 ss albuterol Allergy ADR/ALGY-Pa Verified 03/08/25 11:26 lpitations tramadol Allergy ADR-Chest Verified 03/08/25 11:26 Pain Review of Systems Const: Denies: fever(s) or chills Card: Denies: chest pain Resp: Denies: dyspnea GI: Denies: abdominal pain : Denies: dysuria, urinary frequency or urinary urgency Musc: Denies: neck pain or back pain Skin/Breast: Denies: rash PFSH ED PFSH: Medical History Syncope Family History Father No problems noted. Social History Smoking and tobacco/nicotine status: former use of tobacco/nicotine (Quit before 1994) Alcohol intake: current Alcohol intake frequency: few times a month Substance/Drug Use: never Physical Exam Const: GENERAL APPEARANCE: cooperative ORIENTATION/CONSCIOUSNESS: Yes awake, Yes oriented to person, Yes oriented to place and Yes oriented to time HENMT: COMMON NORMALS: normocephalic, atraumatic and hearing grossly normal bilaterally HEAD & SCALP: normocephalic and atraumatic Resp: COMMON NORMALS: normal respiratory effort, No retractions, No use of accessory muscles and clear to auscultation bilaterally AUSCULTATION: clear to auscultation bilaterally Cardio: COMMON NORMALS: regular rate, regular rhythm and No murmurs present (Cardio) RATE: regular rate RHYTHM: regular rhythm GI: COMMON NORMALS: Soft to palpation and No hepatosplenomegaly present AUSCULTATION: Yes normoactive bowel sounds PALPATION: Yes Soft to palpation, No Tenderness to palpation present (GI), No Guarding due to palpation present (GI) and Yes No hepatosplenomegaly present Extremity: COMMON NORMALS: normal to inspection, capillary refill normal, no clubbing, cyanosis or edema, no calf tenderness and no pedal edema Neuro: SENSORIUM/ORIENTATION: Yes oriented to person, Yes oriented to place and Yes oriented to time Skin: OTHER: Abrasions of the left knee Course Vital Signs: Vital signs: Vital Signs Temperature 98.3 F 03/12/25 06:24 Pulse Rate 64 03/12/25 07:40 Respiratory Rate 17 03/12/25 06:24 Blood Pressure 155/93 03/12/25 07:40 Pulse Oximetry 98 03/12/25 07:40 Oxygen Delivery Me thod Room Air 03/12/25 06:31 MDM - Fall Medical Decision Making Right distal radius fracture splinted will refer to orthopedics. Small lacerations on the forehead Steri-Stripped wound care instructions given follow-up with orthopedics. Tetanus was up-to-date. X-ray left knee normal abrasions on the left knee cleaned and treated with topical antibiotic ointment. Patient ambulated without significant difficulty. Medical Records I reviewed the patient's medical records. Lab Data Radiology Impressions Knee X-Ray 03/12/25 06:31 IMPRESSION: No acute findings. Wrist X-Ray 03/12/25 06:31 IMPRESSION: No acute traumatic injury. ADDENDUM: 03/12/25 0720 Impression: Fracture of the distal radius. All radiology interpretation(s) finalized by discharge Discharge Plan Discharge Patient Disposition: Home Clinical Impression: Closed fracture of right distal radius, Face lacerations Condition: Stable Prescriptions: New mupirocin [Centany] 2 % ointment 1 applic topical BID Qty: 22 0RF hydrocodone-acetaminophen 5-325 mg tablet 1 tab PO Q6H PRN (Reason: pain) Qty: 10 0RF No Action ondansetron 8 mg tablet,disintegrating 8 mg PO Q8H PRN (Reason: Nausea And Vomiting) lisinopril 20 mg tablet 20 mg PO DAILY cyclobenzaprine 10 mg Tablet 10 mg PO BID PRN (Reason: Spasms) alendronate 70 mg Tablet 70 mg PO Q7D indomethacin 25 mg Capsule 25 mg PO BID Rx Instructions: administer with food or milk acetaminophen 325 mg Tablet 325 mg PO QID PRN (Reason: Pain) ropinirole 1 mg Tablet 1 mg PO BID meclizine 25 mg Tablet 25 mg PO TID PRN (Reason: Dizziness) montelukast 10 mg Tablet 10 mg PO QPM pyridoxine (vitamin B6) [Vitamin B-6] 100 mg Tablet 50 mg PO DAILY cholecalciferol (vitamin D3) [Vitamin D3] 25 mcg (1,000 unit) Tablet 25 mcg PO DAILY diclofenac sodium 1 % Gel 4 g TOPICAL QID PRN (Reason: osteoarthritis) Rx Instructions: apply to single knee, ankle, foot; for foot includes sole/toes/top of foot Discharge Orders: Discharge ED (Routine); Ordered 03/12/25 Ordered By: Mandeep Atkinson Referrals: Rima Townsend FNP [Primary Care Provider, Nurse Practitioner] Discharge Diet: Usual diet Discharge Activity: Limit activity as instructed Patient Instructions: Opioid Safety, Pain Management, Patient Portal & Maya Instructions Activity Restrictions/Additional Instructions: [facility]. It is very important that you follow up as instructed or that you return to the Emergency Department should you have concerns or if your condition changes or worsens in any way. You were seen in the emergency room with facial lacerations and right wrist left knee pain after a fall. You reported your tetanus was up-to-date lacerations were very small and were closed with a Steri-Strip splint. Apply topical antibiotic ointment to the abrasions and lacerations until they are healed. You have a fracture in your right wrist this will be followed up with the orthopedic clinic bottle caser will make an arrangement for follow-up appointment for you. Print Language: Spanish Coding Level of Care Code ED Leg Man for Yasir Garg
--- NOTE | 2025-03-12 07:28 | DCPLANNER ---
messaged ortho for er f/u
[2025-03-12 07:40] VITALS: BP 155/93; PULSE 64; O2SAT 98
== END 2025-03-12 07:41 | disposition home or self-care (01) ==
PROVIDERS: Emergency Provider Family Medicine; PCP Nurse Practitioner
DX: S52.501A Unspecified fracture of the lower end of right radius, initial encounter for closed fracture (principal); Z87.891 Personal history of nicotine dependence; W19.XXXA Unspecified fall, initial encounter
CPT/HCPCS: 29125; 73110; 73564; 99284

== ENCOUNTER → 2025-03-20 14:22 | Outpatient (BNVA) | payer OTHER, SELFPAY | PROVIDERS: PCP Nurse Practitioner; Visit Provider Orthopaedic Surgery | DX: S52.501A Unspecified fracture of the lower end of right radius, initial encounter for closed fracture (principal); Z01.818 Encounter for other preprocedural examination; W19.XXXA Unspecified fall, initial encounter; M25.562 Pain in left knee | CPT/HCPCS: 36415; 73110; 80053; 81001; 85025; 99204 ==

== ENCOUNTER 2025-03-22 06:50 | Outpatient (CLI) | payer OTHER, SELFPAY ==
--- NOTE | 2025-03-22 07:15 | MR_ITS ---
WS: [id number] MRI LEFT KNEE NONCONTRAST TECHNIQUE: Axial PD, coronal PD fat sat, coronal PD, sagittal PD, and sagittal PD fat-sat images obtained. CLINICAL INFORMATION: Knee pain COMPARISON: None. FINDINGS: Some images are degraded due to motion and susceptibility artifact. Marked distention of the prepatellar bursa compatible with prepatellar bursitis. Complex bursal fluid collection some of which like represents hematoma from recent trauma. Distention of the infrapatellar bursa. Patella appears grossly intact. Moderate to advanced chondromalacia patella. Medial lateral patellar retinaculum appear intact. Moderate to advanced tricompartmental arthritis. Hypertrophic patella. Distal quadriceps and patellar tendons appear intact. ACL and PCL appear intact. Normal fibula head. Medial and lateral collateral ligaments are intact. Normal lateral meniscus. Chronic intrasubstance signal abnormality involving the medial meniscus. No acute appearing meniscal tears. Grade III chondromalacia medial and lateral joint compartments. Small amount of contusion involving the anterior medial tibial plateau with suggestion of a tiny possible hairline fracture. Normal bone marrow signal in the femoral condyles. MR/MR knee LT wo con* [id number] IMPRESSION: 1. Extensive prepatellar and infrapatellar bursitis with marked distention of the prepatellar bursa with associated complex fluid collection some of which li melinda represents hematoma from recent trauma. 2. Patella appears intact. 3. Small amount of contusion involving the anterior medial tibial plateau with suggestion of a possible tiny hairline fracture. 4. ACL and PCL appear intact. 5. Moderate tricompartmental arthritis. Outbridge grading: grade III: partial-thickness cartilage loss with focal ulcer ation
== END 2025-03-22 06:51 | disposition home or self-care (01) ==
LOC: RAD 06:51
PROVIDERS: PCP Nurse Practitioner; Visit Provider Orthopaedic Surgery
DX: M70.42 Prepatellar bursitis, left knee (principal); M17.12 Unilateral primary osteoarthritis, left knee
CPT/HCPCS: 73721

== ENCOUNTER 2025-03-23 07:52 | Day surgery (SDC) | payer OTHER, SELFPAY ==
[2025-03-23] VITALS (12 sets, daily range): BP systolic 115–150; BP diastolic 68–89; PULSE 67–92; RESP 14–22; TEMP 36.1–36.5; O2SAT 94–98; BMI 29.2
--- NOTE | 2025-03-23 06:16 | ANES.PREANE2 ---
Pre-Anesthetic Assessment Height/Weight: Height 5 ft 8 in Preop Diagnosis: Distal radius fracture Operation Date: 03/23/25 09:40 Proposed Procedures p ORIF Wrist(Right) - Kasi Young, DO Was Beta Domingo taken within 24 hours: N/A Was Clonidine taken within 24 hours: N/A Social No alcohol and No tobacco Exam alert, oriented x 3, clear to auscultation bilaterally and regular rate & rhythm Airway Submandibular: within normal limits Cervical ROM: within normal limits Mallampati: Class III Dentition: partials Anesthetic Plan ASA status: 3 Anesthesia: General and Regional (specify below) Other: No prior issues with anesthesia NPO since yesterday evening Recent shoulder scope with us, grade 2 view with MAC 3 History of hypertension on lisinopril History of emphysema, quit smoking in 1994 Labs reviewed from 03/20/2025. WBC 20 at that time, repeat cbc today showing WBC of 14. EKG showing sinus rhythm Plan for general anesthesia with peripheral nerve block Medications/Allergies Home Medications ?Medication ?Instructions ?Recorded ?Confirmed ?Last Taken ?Type acetaminophen 325 mg tablet 325 mg PO QID PRN Pain 07/14/23 03/23/25 2 Weeks Ago History ~03/09/25 alendronate 70 mg tablet 70 mg PO Q7D 07/14/23 03/23/25 1 Week Ago History ~03/16/25 cholecalciferol (vitamin D3) 25 25 mcg PO DAILY 07/14/23 03/23/25 2 Weeks Ago History mcg (1,000 unit) tablet (Vitamin ~03/09/25 D3) cyclobenzaprine 10 mg tablet 10 mg PO BID PRN Spasms 07/14/23 03/23/25 2 Weeks Ago History ~03/09/25 diclofenac sodium 1 % topical gel 4 g topical QID PRN osteoarthritis 07/14/23 03/23/25 1 Week Ago History ~03/16/25 indomethacin 25 mg capsule 25 mg PO BID 07/14/23 03/23/25 2 Weeks Ago History ~03/09/25 meclizine 25 mg tablet 25 mg PO TID PRN Dizziness 07/14/23 03/23/25 2 Weeks Ago History ~03/09/25 montelukast 10 mg tablet 10 mg PO QPM 07/14/23 03/23/25 2 Weeks Ago History ~03/09/25 pyridoxine (vitamin B6) 100 mg 50 mg PO DAILY 07/14/23 03/23/25 2 Weeks Ago History tablet (Vitamin B-6) ~03/09/25 ropinirole 1 mg tablet 1 mg PO BID 07/14/23 03/22/25 03/20/25 History lisinopril 20 mg tablet 20 mg PO DAILY 11/13/24 03/22/25 03/20/25 History ondansetron 8 mg disintegrating 8 mg PO Q8H PRN Nausea And Vomiting 11/13/24 03/23/25 3 Weeks Ago History tablet ~03/02/25 hydrocodone 5 mg-acetaminophen 325 1 tab PO Q6H PRN pain #10 tabs 03/12/25 03/23/25 03/20/25 Rx mg tablet mupirocin 2 % topical ointment 1 applic topical BID #22 grams 03/12/25 03/23/25 2 Weeks Ago Rx (Centany) ~03/09/25 cyanocobalamin (vitamin B-12) 500 1,000 mcg PO DAILY PRN Bleeding 03/23/25 03/23/25 1 Week Ago History mcg tablet (B-12 DOTS) ~03/16/25 Allergies Allergy/AdvReac Type Severity Reaction Status Date / Time acetaminophen (From Vicodin) Allergy Severe ADR-Shakine Verified 03/23/25 08:03 ss hydrocodone (From Vicodin) Allergy Severe ADR-Shakine Verified 03/23/25 08:03 ss albuterol Allergy ADR/ALGY-Pa Verified 03/23/25 08:03 lpitations tramadol Allergy ADR-Chest Verified 03/23/25 08:03 [facility] Medical History (Updated 03/20/25 @ 00:00 by MALAIKA Keita) Syncope Family History Father No problems noted. Social History Smoking and tobacco/nicotine status: never used tobacco/nicotine Alcohol intake: current Alcohol intake frequency: few times a month Substance/Drug Use: never Data Anesthesia 03/23/25 08:25 Cardiac Studies: Echocardiogram 08/11/23 Cardiac Event Monitor 07/07/23
[2025-03-23 08:37] LABS: Hematocrit 45.7 % (36-47); Hemoglobin 15.20 g/dL (11.27-16.99); Mean Corpuscular HGB Conc 33.3 g/dL (30-55); Mean Corpuscular Hemoglobin 30.6 pg (27-33); Mean Corpuscular Volume 92.1 fl (85-98); Nucleated Red Blood Cells % 0 %; Platelet Count 327 10^3/cmm (157-399); Red Blood Count 4.96 10^6/uL (3.85-5.65); White Blood Count 14.28 10^3/uL (3.29-11.43)
--- NOTE | 2025-03-23 10:18 | W.PM.OPSUD ---
Surgery/Procedure H&P Update DATE OF PROCEDURE: March 23, 2025 DATE H&P PERFORMED: 03/20/25 H&P UPDATE INFORMATION: I have reviewed H&P completed within last 30 days, I have examined patient prior to procedure and No changes to prior documentation PREOP DIAGNOSIS: Distal radius fracture PLANNED PROCEDURE: Operation Date: 03/23/25 09:40 Proposed Procedures p ORIF Wrist(Right) - Kasi Young DO
--- NOTE | 2025-03-23 10:18 | PC.NURSE ---
1006 supraclavicular nerve block performed by Dr. Henson. 30ml 0.5% Ropivicaine administered.
--- NOTE | 2025-03-23 10:20 | ANES.PROC ---
Anesthesia Procedures Procedure/Date: 03/23/25 Nerve Block ^: Nerve Block 1: Main Anesthesia: other (100mcg fentanyl) Time Out Performed: Yes Consent: requested by attending/covering physician and from patient Nerve block location: supraclavicular Anesthesia monitors applied: pulse oximetry, EKG, BP cuff and oxygen Nerve block position: supine Anesthetic Used: ropivicaine 0.5% Amount of anesthesia used (mL): 30 Ultrasound used to: recognize landmarks Nerve Stimulator Used?: Yes Interscalene/Femoral BLK: other needle (pjunk 4inch) Injection: neg aspiration of heme Patient Tolerated Procedure: well Complications: none Additional Comments: decadron 4mg added to block
[2025-03-23] MEDS: ceFAZolin 2,000 mg SDV 2000 MG IVP (10:35)
--- NOTE | 2025-03-23 11:58 | PM.OP ---
Operative Report Date of procedure: March 23, 2025 Pre-op diagnosis: Right intra-articular distal radius fracture (2 pieces) Post-op diagnosis: same Procedure done: Open reduction internal fixation of distal radius fracture Surgeon: Kasi Young DO Estimated blood loss (mL): 5 Procedure: Open reduction internal fixation of distal radius fracture Patient brought the op suite after undergoing anesthesia was placed in the supine position. All areas of impingement were well-padded. Skin incision was made over the volar wrist. The FCR and radial artery were identified. The interval between this was split open with not sharp dissection. The pronator was reflected ulnarly. Fracture is identified. The fracture was a coronal split through the joint. The fracture was reduced by pulling traction and then placing the volar Arthrex plate and using as a buttress plate. Screw was placed most proximal to the fracture and compressed down. AP and lateral fluoroscopy ensured that the fracture was reduced. Locking screws were placed into the distal part of the plate. And then the locking screw was placed in the proximal part of the plate. AP and lateral fluoroscopy was used to ensure the fracture and hardware in good position. Wounds were irrigated and closed with Vicryl and Monocryl suture. Sterile dressings were applied patient was placed in a volar splint and transferred to the PACU in stable condition.
[2025-03-23] MEDS: fentaNYL 50 mcg/mL INJ 2mL IVP (12:10)
--- NOTE | 2025-03-23 13:05 | ANE.PACU2 ---
Inpatient post-anesthesia follow up: Airway intact: Yes Vital signs: Temperature 97.7 F Pulse Rate 76 Respiratory Rate 16 Blood Pressure 137/82 Pulse Oximetry 96 Oxygen Delivery Me thod Room Air Oxygen Flow Rate 2 Fraction of Inspir ed Oxygen Hydration adequate: Yes Nausea and vomiting: No Pain level: 1 Mental status: Baseline
--- NOTE | 2025-03-23 15:57 | XR_ITS ---
WS: [id number] INTRAOPERATIVE TECHNIQUE: 4 Spot fluoroscopic images for intraoperative purposes. FLUOROSCOPY TIME: 25.3 seconds CLINICAL INFORMATION: or pic, wrist orif FINDINGS: Intraoperative changes plate and screw fixation distal radial fracture hardware appears in good position. Normal anatomic alignment. XR/XR wrist RT 2V [id number] IMPRESSION: Images obtained for intraoperative purposes.
== END 2025-03-23 13:05 | disposition home or self-care (01) ==
PROVIDERS: Student in an Organized Health Care Education/Training Program; PCP Nurse Practitioner; Visit Provider Orthopaedic Surgery
PROC: (CPT 25608; principal; 2025-03-23 09:30)
DX: S52.571A Other intraarticular fracture of lower end of right radius, initial encounter for closed fracture (principal); W19.XXXA Unspecified fall, initial encounter; I10 Essential (primary) hypertension; J43.8 Other emphysema; Z87.891 Personal history of nicotine dependence
CPT/HCPCS: 25608; 73100; 76000; 85025; C1713; J0690; J1100; J2371; J2405; J2704; J3010; J7030; J9999

== ENCOUNTER → 2025-04-05 08:41 | Outpatient (BNVA) | payer OTHER, SELFPAY | PROVIDERS: PCP Nurse Practitioner; Visit Provider Orthopaedic Surgery | DX: Z98.890 Other specified postprocedural states (principal) | CPT/HCPCS: 73110 ==

== ENCOUNTER 2025-04-05 10:02 | Outpatient (RCR) | payer OTHER, SELFPAY | END 2025-04-29 23:59 | disposition home or self-care (01) | LOC: SPT 10:02 | PROVIDERS: PCP Nurse Practitioner; Visit Provider Nurse Practitioner | DX: M25.512 Pain in left shoulder (principal) | CPT/HCPCS: 97110; 97161; 99024 ==

== ENCOUNTER 2025-04-05 11:15 | Outpatient (CLI) | payer OTHER, SELFPAY | END 2025-04-05 11:16 | disposition home or self-care (01) | LOC: SPT 11:15 | PROVIDERS: PCP Nurse Practitioner; Visit Provider Orthopaedic Surgery | DX: Z47.89 Encounter for other orthopedic aftercare (principal); S52.591D Other fractures of lower end of right radius, subsequent encounter for closed fracture with routine healing; X58.XXXD Exposure to other specified factors, subsequent encounter | CPT/HCPCS: L3908 ==

== ENCOUNTER → 2025-04-09 09:14 | Outpatient (BNVA) | payer OTHER, SELFPAY | PROVIDERS: PCP Nurse Practitioner; Visit Provider Orthopaedic Surgery | DX: Z98.890 Other specified postprocedural states (principal) | CPT/HCPCS: 99024 ==

== ENCOUNTER 2025-04-30 05:00 | Outpatient (RCR) | payer OTHER, SELFPAY | END 2025-05-29 23:59 | disposition home or self-care (01) | LOC: SPT 05:00 | PROVIDERS: PCP Nurse Practitioner; Visit Provider Nurse Practitioner | DX: M25.512 Pain in left shoulder (principal) | CPT/HCPCS: 97110 ==

== ENCOUNTER 2025-04-30 05:00 | Outpatient (RCR) | payer OTHER, SELFPAY | END 2025-05-29 23:59 | disposition home or self-care (01) | LOC: SPT 05:00 | PROVIDERS: PCP Nurse Practitioner; Visit Provider Nurse Practitioner | DX: M99.03 Segmental and somatic dysfunction of lumbar region (principal) | CPT/HCPCS: 97110; 97161 ==

== ENCOUNTER → 2025-05-03 08:43 | Outpatient (BNVA) | payer OTHER, SELFPAY | PROVIDERS: PCP Nurse Practitioner; Visit Provider Orthopaedic Surgery | DX: Z98.890 Other specified postprocedural states (principal) | CPT/HCPCS: 73110; 99024 ==

== ENCOUNTER → 2025-05-14 09:43 | Outpatient (BNVA) | payer OTHER, SELFPAY | PROVIDERS: PCP Nurse Practitioner; Visit Provider Orthopaedic Surgery | DX: Z47.89 Encounter for other orthopedic aftercare (principal) | CPT/HCPCS: 99024; 99213 ==

== ENCOUNTER 2025-05-30 05:00 | Outpatient (RCR) | payer OTHER, SELFPAY | END 2025-06-29 23:59 | disposition home or self-care (01) | LOC: SPT 05:00 | PROVIDERS: PCP Nurse Practitioner; Visit Provider Nurse Practitioner | DX: M99.03 Segmental and somatic dysfunction of lumbar region (principal) | CPT/HCPCS: 97110 ==

== ENCOUNTER 2025-05-30 06:30 | Outpatient (RCR) | payer OTHER, SELFPAY | END 2025-06-12 14:19 | disposition home or self-care (01) | LOC: SPT 06:30 | PROVIDERS: PCP Nurse Practitioner; Visit Provider Nurse Practitioner | DX: M25.512 Pain in left shoulder (principal) | CPT/HCPCS: 97110 ==

== ENCOUNTER → 2025-06-14 14:34 | Outpatient (BNVA) | payer OTHER, SELFPAY | PROVIDERS: PCP Nurse Practitioner; Visit Provider Orthopaedic Surgery | DX: Z09 Encounter for follow-up examination after completed treatment for conditions other than malignant neoplasm (principal); Z98.890 Other specified postprocedural states | CPT/HCPCS: 73110; 99024 ==

== ENCOUNTER 2025-06-30 05:00 | Outpatient (RCR) | payer OTHER, SELFPAY | END 2025-07-29 23:59 | disposition home or self-care (01) | LOC: SPT 05:00 | PROVIDERS: PCP Nurse Practitioner; Visit Provider Nurse Practitioner | DX: M99.03 Segmental and somatic dysfunction of lumbar region (principal) | CPT/HCPCS: 97110 ==